=== PATIENT | female | born 1950 | race Caucasian/White ===

== ENCOUNTER → 2018-05-03 12:02 | Outpatient (CLI) | payer MEDICARE, OTHER, SELFPAY ==
[2018-05-03 13:21] LABS: T4 Free Direct 1.55 ng/dL (0.76-1.46); Thyroid Stim Hormone (TSH) 0.03 uIU/mL (0.358-3.74)
== END ==
PROVIDERS: Family Provider Family Medicine; PCP Family Medicine; Visit Provider Internal Medicine
DX: E03.9 Hypothyroidism, unspecified (principal)
CPT/HCPCS: 36415; 84439; 84443

== ENCOUNTER 2019-02-18 11:08 | Emergency (ER) | payer MEDICARE, OTHER, SELFPAY ==
[2019-02-18] VITALS (9 sets, daily range): BP systolic 111–185; BP diastolic 61–117; PULSE 80–103; RESP 14–20; TEMP 37; O2SAT 94–98; BMI 29.4
--- NOTE | 2019-02-18 11:35 | EKG12_ITS ---
Test Reason : SOB Blood Pressure : / mmHG Vent. Rate : 082 BPM Atrial Rate : 082 BPM P-R Int : 130 ms QRS Dur : 092 ms QT Int : 394 ms P-R-T Axes : 001 071 073 degrees QTc Int : 460 ms Normal sinus rhythm Normal ECG Confirmed by WAQAR YAO, LUDWIN ([id number]), publishing editor RAHUL VILLALOBOS ([id number] on 02/21/2019 2:02:38 PM Referred By: RADHA Confirmed By:LUDWIN ZAVALETA MD
[2019-02-18] MEDS: Albuterol 2.5 MG/3 ML VIAL.NEB. INHALATION ×3 (11:52→13:36)
[2019-02-18] MEDS: Ipratropium/Albuterol Sulfate 3 ML AMPUL.NEB INHALATION (11:52)
[2019-02-18 12:00] LABS: Absolute Lymphocyte Count 1.22 X10^3/ul (0.83-4.51); Absolute Neutrophil Count 5.6 X10^3/uL (2.0-7.7); Basophil# 0.07 X10^3/uL; Basophil% 0.9 % (0-1); Eosinophils% 7.4 % (0-5); Hematocrit 45.1 % (37-47); Hemoglobin 15.3 g/dl (12.0-15.0); Lymphocyte # 1.22 X10^3/ul (4.0); Lymphocyte % 15.1 % (19-41); Mean Corp Hgb Conc 33.9 g/gl (32-36); Mean Corpuscular Hgb 31.2 pg (27.0-32.0); Mean Corpuscular Volume 91.9 fL (81-99); Mean Platelet Vol. 9.8 fl (6.2-12.0); Monocyte# 0.59 X10^3/uL; Monocyte% 7.3 % (0-10); Neutrophil # 5.62 X10^3/uL (2.7-7.7); Neutrophil % 69.3 % (47-70); Platelet Count 380 K/mm3 (150-450); RBC Distribution Width CV 14.2 % (11.6-14.6); RBC Distribution Width SD 46.4 fl (35.1-43.9); Red Blood Count 4.91 M/mm3 (4.2-5.4); White Blood Count 8.1 K/mm3 (4.4-11.0)
[2019-02-18 12:01] LABS: POSITIVE COUNT NO; POSITIVE DIFFERENTIAL NO; POSITIVE MORPHOLOGY NO
--- NOTE | 2019-02-18 12:02 | ED.DCSUM_ITS ---
- ER Visit Summary Date of Service: 02/18/19 Chief Complaint: Shortness of breath History of Present Illness: The patient is a 68 F presenting with shortness of breath and cough. She states this has been intermittent for the past several months. It has worsened over the past several days. She has been seeing her primary care physician and was diagnosed with allergy induced asthma. She had allergy testing that showed she was allergic to dogs, dust mites, dust, cockroaches. She does have a dog but does not feel that this is exacerbating her symptoms. She denies fever. Denies chest pain. She has been using albuterol at home. Denies other complaints. Physical Examination: Vitals are stable. Patient is afebrile. Alert no acute distress. HEENT exam is unremarkable. Neck is supple. Lungs are wheezing bilaterally. Heart is regular rate and rhythm. Abdomen is soft nontender nondistended. Extremities are unremarkable. Skin is warm and dry. No focal neurologic deficit. Remainder of exam is unremarkable. Emergency Department Course and Treatment: Patient was given albuterol, Atrovent aerosols. EKG is sinus rhythm rate of 82 with no acute ischemic changes. CBC, chemistries unremarkable. Troponin is negative. Chest x-ray shows no acute process. Patient has continued wheezing after aerosol treatments and was given additional albuterol and Solu-Medrol. Her pulse ox is 89% with ambulation and she has continued wheezing. Discussed with the hospitalist for observation. Patient was seen by the hospitalist in the emergency department, her pulse ox remained 95% on room air. Patient will be discharged and is agreeable with this plan. She will follow-up with pulmonology for her pulmonary function tests. She is given a prescription for prednisone. Advised return to ED if worsening complaints. Disposition: Discharge home Impression: Asthma exacerbation This note was generated with [employer] dictation software. It may contain incorrect words, spelling, and punctuation that were not noted in review of the chart prior to signing ED Disposition - Plan for ED Patient: Instructions: Understanding Asthma Prescriptions: Prednisone [Deltasone] 40 mg PO DAILY #10 tablet Referrals: Matias Smith MD [STAFF PHYSICIAN] - Amanda Bahena PA-C [Primary Care Provider] -
[2019-02-18 12:13] LABS: Anion Gap 9 (5-15); BUN 16 mg/dL (7-18); BUN/Creat Ratio 18.2 RATIO (10-20); Calcium,Total 9.3 mg/dL (8.5-10.1); Chloride 106 mmol/L (98-107); Creatinine, Serum 0.88 mg/dL (0.55-1.02); EST Glomerular Filtration Rate 68 mL/min (>60); Est Glom Filt Rate - Afr Amer 83 mL/min (>60); Estimated Creatinine Clearance 52.02 ml/min; Glucose 95 mg/dL (74-106); Potassium 3.4 mmol/L (3.5-5.1); Sodium Level 141 mmol/L (136-145)
--- NOTE | 2019-02-18 12:30 | RAD_ITS ---
STUDY: X-RAY CHEST REASON FOR EXAM: Female, 68 years old. Shortness of breath TECHNIQUE: AP COMPARISON: 08/09/2017 FINDINGS: EKG The lungs are clear and expanded. There is no demonstrated pleural abnormality. Normal size heart. Normal mediastinum and dianne. Normal visualized pulmonary arteries. Normal visualized aortic arch and descending thoracic aorta. There is a dextroscoliosis of the thoracic spine. Normal visualized ribs, clavicles, and shoulders. There is no demonstrated abnormality of the visualized soft tissue structures of the upper abdomen. RAD/Chest 1 View (Portable) IMPRESSION: Nonacute portable x-ray examination of the chest. Electronically Signed: Gokul Judd MD at 12:47 EDT , Service support ,
[2019-02-18] MEDS: MethylPREDNISolone 125 MG/2 ML Vial IV (13:36)
--- NOTE | 2019-02-18 15:30 | ED.RN ---
PT AMBULATED WITH OUT DIFFICULTY, SPO2 DROPPED LOW 89 DURING THIS WALK MAINTAINED A 90% FOR MOST OF THE WALK.
--- NOTE | 2019-02-18 16:21 | NURSING ---
MED SURG ACUTE COPD EXAC PAINTSIL
--- NOTE | 2019-02-18 16:55 | ED.DEP ---
ED Disposition - Plan for ED Patient: Instructions: Understanding Asthma Prescriptions: Prednisone [Deltasone] 40 mg PO DAILY #10 tablet Referrals: Amanda Bahena PA-C [Primary Care Provider] - Matias Smith MD [STAFF PHYSICIAN] -
== END 2019-02-18 17:20 | disposition home or self-care (01) ==
LOC: ED 11:47
PROVIDERS: Emergency Provider Emergency Medicine; Family Provider Family Medicine; PCP Family Medicine
DX: J45.901 Unspecified asthma with (acute) exacerbation (principal); K21.9 Gastro-esophageal reflux disease without esophagitis; I10 Essential (primary) hypertension; Z79.899 Other long term (current) drug therapy
CPT/HCPCS: 71045; 80048; 84484; 85025; 93005; 94640; 96374; 99285; A4216

== ENCOUNTER → 2019-03-09 06:45 | Outpatient (CLI) | payer MEDICARE, OTHER, SELFPAY ==
[2019-02-18 11:09] VITALS: BMI 29.4
--- NOTE | 2019-03-09 11:14 | PFT ---
INTRODUCTION: The patient is a 68-year-old female that presents for pulmonary function studies secondary to a diagnosis of wheezing. Respiratory therapy reports good patient effort. Bronchodilators were used during testing. INTERPRETATION: Forced expiration spirometry demonstrates the presence of a severe large airways obstructive ventilatory defect. There was a significant response to aerosolized bronchodilators noted. Spirograms are of good quality and do not plateau indicating slow emptying of the lungs. Body plethysmography was performed and reveals an elevated RV to 185% of predicted, indicative of underlying air trapping. Diffusing capacity by single breath CO is reduced at 63% of predicted. IMPRESSION: Partially reversible severe large airways obstructive ventilatory defect with associated air trapping and mild reduction in diffusing capacity. The pattern of this study would be consistent with a COPD/asthma overlap syndrome, in the appropriate clinical setting.
== END ==
PROVIDERS: Family Provider Family Medicine; PCP Family Medicine; Referring Provider Family Medicine; Visit Provider Family Medicine
DX: R06.2 Wheezing (principal)
CPT/HCPCS: 94060; 94726; 94729

== ENCOUNTER 2019-03-13 14:36 | Emergency (ER) | payer MEDICARE, OTHER, SELFPAY ==
[2019-02-18 11:09] VITALS: BMI 29.4
[2019-03-13 14:40] VITALS: BP 181/98; PULSE 89; RESP 16; TEMP 36.4; O2SAT 95; BMI 29.0
--- NOTE | 2019-03-13 15:10 | RAD_ITS ---
STUDY: X-RAY CHEST REASON FOR EXAM: Female, 68 years old. Shortness of breath and cough TECHNIQUE: PA and lateral views of the chest. COMPARISON: 02/18/2019 FINDINGS: The lungs are clear and expanded. There is no demonstrated pleural abnormality. Normal size heart. Normal mediastinum and dianne. Normal visualized pulmonary arteries. Normal visualized aortic arch and descending thoracic aorta. Normal visualized thoracic spine. Normal visualized ribs, clavicles, and shoulders. There is no demonstrated abnormality of the visualized soft tissue structures of the upper abdomen. RAD/Chest PA and Lateral IMPRESSION: Normal x-ray examination of the chest. Electronically Signed: Julio Cesar Hanley MD at 15:30 EDT , Service support ,
[2019-03-13 15:20] VITALS: O2SAT 97
--- NOTE | 2019-03-13 15:28 | EKG12_ITS ---
Test Reason : SOB Blood Pressure : / mmHG Vent. Rate : 068 BPM Atrial Rate : 068 BPM P-R Int : 140 ms QRS Dur : 092 ms QT Int : 412 ms P-R-T Axes : 022 071 075 degrees QTc Int : 438 ms Normal sinus rhythm Cannot rule out Anterior infarct , age undetermined Abnormal ECG Confirmed by WAQAR YAO, LUDWIN ([id number]), editorial manager VEGA TOLBERT ([id number]) on 03/15/2019 1:31:18 PM Referred By: Amanda Bahena Confirmed By:LUDWIN ZAVALETA MD
--- NOTE | 2019-03-13 15:29 | ED.VISSUMM ---
- ER Visit Summary Date of Service: 03/13/19 Chief Complaint: Shortness of breath History of Present Illness: The patient is a 68 F who presents for shortness of breath, worse since last night. Patient was diagnosed with asthma last week. She was started on Ventolin inhaler and DuoNeb nebulizer treatments. Patient states since last night her medications have not been helping. She is short of breath, worse with exertion. No change with lying flat. She has no fever, chest pain, abdominal pain, nausea or vomiting or other complaints. She states in the past she has had great improvement with prednisone, however had bad side effects afterwards, including blurry vision and swelling in her ankles. Patient has history of Graves' disease status post thyroid ablation and is on Synthroid. Also on HCTZ for hypertension. Patient denies any CHF or iliac history. No history of venous thrombi embolism. Physical Examination: Vital signs: afebrile, hemodynamically stable, no hypoxia on room air General: well nourished, well developed, in no distress Skin: warm, dry, no rash, no pallor HEENT: normocephalic and atraumatic; PERRL, EOMI, moist mucous membranes Cardiovascular: regular rate and rhythm without murmurs, no peripheral edema, 2+ pulses all distal extremities Respiratory: Mild increased work of breathing, voice is hoarse, lungs have wheezing in the anterior pedro, clear to auscultation in the posterior upper pedro and diminished in the lower pedro Abdomen: Soft, nontender, nondistended, bowel sounds are normal MSK: Moves all extremities, no deformities, normal strength Neuro: Awake and alert, oriented ?4. No facial droop, sensation and motor function intact and symmetric Test Results: Abnormal Lab Results 03/13/19 03/13/19 03/13/19 15:40 15:40 15:40 WBC 8.2 RBC 4.70 Hgb 14.8 Hct 44.4 MCV 94.5 MCH 31.5 MCHC 33.3 RDW 14.4 RDW Differential 49.7 H Plt Count 336 MPV 10.0 Immature Gran % (Auto) 0.100 Neut % (Auto) 67.2 Lymph % (Auto) 19.8 [place] % (Auto) 5.1 Eos % (Auto) 6.9 H Baso % (Auto) 0.9 Absolute Neuts (auto) 5.5 Absolute Lymphs (auto) 1.63 Total Counted Not Reportable Sodium 139 Potassium 3.6 Chloride 105 Carbon Dioxide 29.0 Anion Gap 5 BUN 19 H Creatinine 0.90 Estim Creat Clear Calc 53.10 Est GFR (MDRD) Af Amer 81 Est GFR (MDRD) Non-Af 67 BUN/Creatinine Ratio 21.2 H Glucose 98 Calcium 9.3 Troponin I < 0.015 B-Natriuretic Peptide 35.7 TSH 2.22 Clinical Impression(s) from Imaging Studies Chest X-Ray 03/13/19 15:10 IMPRESSION: Normal x-ray examination of the chest. Electronically Signed: Julio Cesar Hanley MD at 15:30 EDT , Service support , Medications Given Discontinued Medications Albuterol Sulfate (Ventolin Aerosols) 2.5 mg INHALATION Q20M SUJIT Stop: 03/13/19 16:11 Last Admin: 03/13/19 16:46 Dose: 2.5 mg Admin: 03/13/19 16:46 Dose: 2.5 mg Admin: 03/13/19 16:22 Dose: 2.5 mg Albuterol/Ipratropium (Duoneb) 3 ml INHALATION X1 ONE Stop: 03/13/19 15:29 Last Admin: 03/13/19 16:22 Dose: 3 ml Methylprednisolone (Solu-Medrol) 125 mg IV X1 ONE Stop: 03/13/19 15:29 Last Admin: 03/13/19 15:47 Dose: 125 mg Emergency Department Course and Treatment: Patient was given a series of breathing treatments and a dose of IV Solu-Medrol. EKG showed no ischemic changes. Troponin negative. Chest x-ray showed no pneumonia or pneumothorax. CBC and BMP were unremarkable. TSH was within normal limits. On reevaluation patient was feeling much better after the breathing treatments and the Solu-Medrol. She was given a prescription for a prednisone burst. She was instructed she can stop it if she begins feeling unpleasant side effects like she did the prior time she was on steroids. Patient discharged home and given strict return precautions. Treatment Plan: [] Disposition: [] Impression: Asthma exacerbation This note was generated with [employer] software. It may contain incorrect words, spelling, and punctuation that were not noted in review of the chart prior to signing ED Disposition - Plan for ED Patient: Disposition: Home or Assisted Living Instructions: ED Reactive Airway Disease Prescriptions: RX: Prednisone 40 mg PO DAILY #20 tab Referrals: Amanda Bahena PA-C [Primary Care Provider] - 3-5 Days if not improving Additional Instructions: Please continue your home breathing treatments. Take the prednisone once daily for 5 days, unless you are experiencing concerning side effects. Then you may stop the prednisone at any time. If you have any worsening of your condition or any new concerning symptoms, please return immediately to the emergency department for another evaluation.
[2019-03-13] MEDS: MethylPREDNISolone 125 MG/2 ML Vial IV (15:47)
[2019-03-13 16:08] LABS: Absolute Lymphocyte Count 1.63 X10^3/ul (0.83-4.51); Absolute Neutrophil Count 5.5 X10^3/uL (2.0-7.7); Basophil# 0.07 X10^3/uL; Basophil% 0.9 % (0-1); Eosinophil# 0.57 X10^3/uL; Eosinophils% 6.9 % (0-5); Hematocrit 44.4 % (37-47); Hemoglobin 14.8 g/dl (12.0-15.0); Lymphocyte # 1.63 X10^3/ul (4.0); Lymphocyte % 19.8 % (19-41); Mean Corp Hgb Conc 33.3 g/gl (32-36); Mean Corpuscular Hgb 31.5 pg (27.0-32.0); Mean Corpuscular Volume 94.5 fL (81-99); Monocyte# 0.42 X10^3/uL; Monocyte% 5.1 % (0-10); Neutrophil # 5.53 X10^3/uL (2.7-7.7); Neutrophil % 67.2 % (47-70); Platelet Count 336 K/mm3 (150-450); RBC Distribution Width CV 14.4 % (11.6-14.6); RBC Distribution Width SD 49.7 fl (35.1-43.9); White Blood Count 8.2 K/mm3 (4.4-11.0)
[2019-03-13 16:12] LABS: POSITIVE COUNT NO; POSITIVE DIFFERENTIAL NO; POSITIVE MORPHOLOGY NO
[2019-03-13 16:18] LABS: Anion Gap 5 (5-15); BUN 19 mg/dL (7-18); BUN/Creat Ratio 21.2 RATIO (10-20); Calcium,Total 9.3 mg/dL (8.5-10.1); Chloride 105 mmol/L (98-107); EST Glomerular Filtration Rate 67 mL/min (>60); Est Glom Filt Rate - Afr Amer 81 mL/min (>60); Glucose 98 mg/dL (74-106); Potassium 3.6 mmol/L (3.5-5.1); Sodium Level 139 mmol/L (136-145); Thyroid Stim Hormone (TSH) 2.22 uIU/mL (0.358-3.74)
[2019-03-13 16:22] VITALS: PULSE 86; RESP 18; O2SAT 96
[2019-03-13] MEDS: Ipratropium/Albuterol Sulfate 3 ML AMPUL.NEB INHALATION (16:22)
[2019-03-13] MEDS: Albuterol 2.5 MG/3 ML VIAL.NEB. INHALATION ×3 (16:22→16:46)
[2019-03-13 16:43] LABS: BNP,B-Type NATRIURETIC PEPTIDE 35.7 pg/mL (0-100)
[2019-03-13 16:46] VITALS: PULSE 92; RESP 16; O2SAT 98
[2019-03-13 18:00] VITALS: BP 181/65; PULSE 90; RESP 13; O2SAT 93
== END 2019-03-13 18:00 | disposition home or self-care (01) ==
PROVIDERS: Emergency Provider Emergency Medicine; Family Provider Family Medicine; PCP Family Medicine
DX: J45.901 Unspecified asthma with (acute) exacerbation (principal); E05.00 Thyrotoxicosis with diffuse goiter without thyrotoxic crisis or storm; I10 Essential (primary) hypertension; Z79.899 Other long term (current) drug therapy
CPT/HCPCS: 71046; 80048; 83880; 84443; 84484; 85025; 93005; 94640; 94760; 96374; 99284; A4216

== ENCOUNTER 2019-03-19 19:20 | Inpatient (IN) | payer MEDICARE, OTHER, SELFPAY ==
[2019-03-19] VITALS (10 sets, daily range): BP systolic 146–225; BP diastolic 81–108; PULSE 69–93; RESP 14–18; TEMP 36.6–36.8; O2SAT 94–98; BMI 30.2; BMI 29.9
--- NOTE | 2019-03-19 19:44 | EKG12_ITS ---
Test Reason : CP ADMISSION Blood Pressure : / mmHG Vent. Rate : 067 BPM Atrial Rate : 067 BPM P-R Int : 144 ms QRS Dur : 088 ms QT Int : 406 ms P-R-T Axes : 023 063 061 degrees QTc Int : 429 ms Normal sinus rhythm Normal ECG When compared with ECG of 13-MAR-2019 16:19, No significant change was found Confirmed by TRAM YAO, JAY JAY ([id number]), avid editor VEGA TOLBERT ([id number]) on 03/21/2019 11:17:30 AM Referred By: Amanda Bahena Confirmed By:JAY JAY UGALDE MD
--- NOTE | 2019-03-19 19:49 | ED.DCSUM_ITS ---
History of Present Illness Chief Complaint: Chest Pain Informant: Patient Onset: Today, Hours - 1 Activity at onset: Rest Timing: Intermittent, Lasts - about 30 min Quality: Heaviness, Pressure Location: Substernal - radiating straight through to back and up to throat some Current Severity: Gone Maximum Severity: Severe Worsened By: Nothing. Not Worsened By: Exertion Relieved By: Nothing - went away on its own w/o pt initiating any treatment Associated Symptoms: Diaphoresis. Negative for: Nausea, Vomiting, Dyspnea Narrative: Patient admits that she is somewhat anxious. She was recently in the ER for asthma and placed on 5 days of prednisone, the last dose was supposed to be today but she did not take it because she had an episode of chest pressure 2 or 3 days ago and she read that is 1 of the side effects of prednisone. She did a nebulizer treatment of albuterol several hours ago, prior to the onset of this chest discomfort, which did not feel like her asthma. No prior stress test that she can ever recall. No known heart disease. Prior Similar Symptoms: Yes, - - 1 month ago, another episode 2-3d ago -- neither as bad as this CVD Risk Factors: Hypertension PE Risk Factors: Negative for: Recent Travel/Surgery, Recenet Immobilization, Prior DVT or PE, Cancer - Past Medical History (1) HTN (hypertension) Status: Chronic (2) Asthma Status: Chronic Past Medical History - Allergies and Home Meds Allergies/Adverse Reactions: Allergies levofloxacin [From Levaquin] Adverse Reaction (Verified 03/19/19 19:36) Other prednisone Adverse Reaction (Verified 03/19/19 19:36) Other BLURRED VISION Primary Care Physician: Amanda Bahena PA-C [Primary Care Provider] - Surgical History: tonsillectomy, - - Eye surgery secondary to Graves' disease, D and C Lives: Spouse/ Significant Other Smoking Status: Former smoker Drugs: None - Family History Maternal Family History: Reports: - - from pneumonia Paternal Family History: Reports: Heart Disease Review of Systems General: Reports: Malaise, Sweats. Denies: Chills, Fever Eyes: Denies: Visual changes - bilaterally, Diplopia ENT: Denies: Rhinorrhea, Sore throat Cardiovascular: Reports: Chest pain - gone now. Denies: Palpitations Respiratory: Denies: Dyspnea, Cough, Sputum, Dyspnea on exertion Gastrointestinal: Denies: Abdominal pain, Nausea, Vomiting, Diarrhea, Melena, Hematochezia Genitourinary: Denies: Dysuria, Hematuria, Frequency Musculoskeletal: Reports: Swelling - in my legs, every time I take prednisone. Denies: Back pain, Extremity Pain Skin: Denies: Rash, Wounds Neurological: Denies: Headache, Weakness, Numbness Physical Exam Vital Signs/Narrative: Vital Signs Temp Pulse Resp BP Pulse Ox 03/19/19 19:33 93 14 225/108 H 97 03/19/19 19:21 98.2 F 83 16 201/107 H 97 Inital Vital Signs reviewed: Yes General: Well nourished, Well developed, No Acute Distress Head: Normocephalic, Atraumatic Eyes: Perrl, EOMI ENT: Moist mucous membranes, No rhinorrhea Neck: Supple, Nontender, No JVD Cardiovascular: Regular rate, Regular rhythm, No murmurs, Normal S1, Normal S2 Respiratory: No distress, CTA bilaterally, Chest nontender Abdomen: Soft, Nontender, Nondistended, Normal bowel sounds Back: Nontender, Normal Inspection Extremities: Nontender, No edema. Negative for: Calf Tenderness Skin: Normal color, No rash, No Trauma Neurological: Alert, Oriented x3, Cranial nerves II-XII grossly intact, Normal Strength, Normal Sensation Psychological: Normal Mood, - - anxious Diagnostic/Tx/Re-eval Laboratory Tests 03/19/19 03/19/19 03/19/19 Range/Units 20:04 19:40 19:40 WBC (4.4-11.0) K/mm3 RBC (4.2-5.4) M/mm3 Hgb (12.0-15.0) g/dl Hct (37-47) % MCV (81-99) fL MCH (27.0-32.0) pg MCHC (32-36) g/gl RDW (11.6-14.6) % RDW Differential (35.1-43.9) fl Plt Count (150-450) K/mm3 MPV (6.2-12.0) fl Immature Gran % (Auto) (0.0-0.9) % Neut % (Auto) (47-70) % Lymph % (Auto) (19-41) % [place] % (Auto) (0-10) % Eos % (Auto) (0-5) % Baso % (Auto) (0-1) % Absolute Neuts (auto) (2.0-7.7) X10^3/uL Absolute Lymphs (auto) (0.83-4.51) X10^3/ul Total Counted APTT 24.1 Cancelled Sodium 141 (136-145) mmol/L Potassium 3.9 (3.5-5.1) mmol/L Chloride 106 (98-107) mmol/L Carbon Dioxide 28.0 (21.0-32.0) mmol/L Anion Gap 7 (5-15) BUN 32 H (7-18) mg/dL Creatinine 1.35 H (0.55-1.02) mg/dL Estim Creat Clear Calc 35.40 ml/min Est GFR (MDRD) Af Amer 50 L (>60) mL/min Est GFR (MDRD) Non-Af 42 L (>60) mL/min BUN/Creatinine Ratio 23.7 H (10-20) RATIO Glucose 91 (74-106) mg/dL Calcium 9.5 (8.5-10.1) mg/dL Troponin I < 0.015 (<0.045) ng/mL 03/19/19 Range/Units 19:40 WBC 10.7 (4.4-11.0) K/mm3 RBC 4.52 (4.2-5.4) M/mm3 Hgb 14.4 (12.0-15.0) g/dl Hct 42.7 (37-47) % MCV 94.5 (81-99) fL MCH 31.9 (27.0-32.0) pg MCHC 33.7 (32-36) g/gl RDW 14.9 H (11.6-14.6) % RDW Differential 50.4 H (35.1-43.9) fl Plt Count 399 (150-450) K/mm3 MPV 9.7 (6.2-12.0) fl Immature Gran % (Auto) 0.300 (0.0-0.9) % Neut % (Auto) 56.5 (47-70) % Lymph % (Auto) 23.1 (19-41) % [place] % (Auto) 9.7 (0-10) % Eos % (Auto) 9.7 H (0-5) % Baso % (Auto) 0.7 (0-1) % Absolute Neuts (auto) 6.0 (2.0-7.7) X10^3/uL Absolute Lymphs (auto) 2.46 (0.83-4.51) X10^3/ul Total Counted Not Reportable APTT Sodium (136-145) mmol/L Potassium (3.5-5.1) mmol/L Chloride (98-107) mmol/L Carbon Dioxide (21.0-32.0) mmol/L Anion Gap (5-15) BUN (7-18) mg/dL Creatinine (0.55-1.02) mg/dL Estim Creat Clear Calc ml/min Est GFR (MDRD) Af Amer (>60) mL/min Est GFR (MDRD) Non-Af (>60) mL/min BUN/Creatinine Ratio (10-20) RATIO Glucose (74-106) mg/dL Calcium (8.5-10.1) mg/dL Troponin I (<0.045) ng/mL - Rhythm Strip Rhythm Strip: Sinus Rhythm Rate: 98 Ectopy: None - EKG Initial EKG Interpretation: Sinus Rhythm, No Acute Injury Pattern, Non-Specific ST Changes - diffuse peaked T's. no AVB. narrow QRS and QT. no ST segment deviations. Treatment: Aspirin Repeat Eval: Pain Free WENDY Risk: Age >/= 65 Score: 1 - Medical Decision Making Patient had a couple 10-minute episodes of recurrent chest discomfort. She alerted us about this later, when I reevaluated her. She currently has no chest discomfort. Certainly this could be reflux, however given her significantly elevated blood pressure in the 220s, her age, in fact that she has never had a stress test, and the fact that her heart score is 4, I think it would be alston to admit her for observation overnight for a stress test in the morning. She is amenable to this plan. ED Disposition - Plan for ED Patient: Disposition: Acute Care [facility] Diagnosis: Chest pain, unspecified Referrals: Amanda Bahena PA-C [Primary Care Provider] -
[2019-03-19] MEDS: Aspirin 81 MG TAB.CHEW 324 MG PO (19:55)
[2019-03-19] MEDS: 0.9% Normal Saline 1,000 ML 150 ML IV (19:55)
[2019-03-19 20:04] LABS: Absolute Lymphocyte Count 2.46 X10^3/ul (0.83-4.51); Basophil# 0.07 X10^3/uL; Basophil% 0.7 % (0-1); Eosinophil# 1.03 X10^3/uL; Eosinophils% 9.7 % (0-5); Hematocrit 42.7 % (37-47); Hemoglobin 14.4 g/dl (12.0-15.0); Lymphocyte # 2.46 X10^3/ul (4.0); Lymphocyte % 23.1 % (19-41); Mean Corp Hgb Conc 33.7 g/gl (32-36); Mean Corpuscular Hgb 31.9 pg (27.0-32.0); Mean Corpuscular Volume 94.5 fL (81-99); Mean Platelet Vol. 9.7 fl (6.2-12.0); Monocyte# 1.03 X10^3/uL; Monocyte% 9.7 % (0-10); Neutrophil # 6.04 X10^3/uL (2.7-7.7); Neutrophil % 56.5 % (47-70); Platelet Count 399 K/mm3 (150-450); RBC Distribution Width CV 14.9 % (11.6-14.6); RBC Distribution Width SD 50.4 fl (35.1-43.9); Red Blood Count 4.52 M/mm3 (4.2-5.4); White Blood Count 10.7 K/mm3 (4.4-11.0)
[2019-03-19 20:08] LABS: POSITIVE COUNT NO; POSITIVE DIFFERENTIAL NO; POSITIVE MORPHOLOGY NO
[2019-03-19 20:16] LABS: Anion Gap 7 (5-15); BUN 32 mg/dL (7-18); BUN/Creat Ratio 23.7 RATIO (10-20); Calcium,Total 9.5 mg/dL (8.5-10.1); Chloride 106 mmol/L (98-107); Creatinine, Serum 1.35 mg/dL (0.55-1.02); EST Glomerular Filtration Rate 42 mL/min (>60); Est Glom Filt Rate - Afr Amer 50 mL/min (>60); Glucose 91 mg/dL (74-106); Potassium 3.9 mmol/L (3.5-5.1); Sodium Level 141 mmol/L (136-145)
[2019-03-19 20:18] LABS: Partial Thromboplast Time 24.1 Seconds (24.1-36.2)
[2019-03-19] MEDS: Ipratropium/Albuterol Sulfate 3 ML AMPUL.NEB INHALATION (20:40)
--- NOTE | 2019-03-19 21:26 | PCM.HP.STD ---
Problem List (1) HTN (hypertension) Status: Chronic (2) Asthma Status: Chronic (3) Chest pain, unspecified Status: Acute History of Present Illness Date of Admission: 03/19/19 Chief Complaint: chest pain The patient is a 68 year old F with a significant history of hypertension; asthma; hypothyroidism developed after radiation for Graves' disease who presented to the emergency department with excruciating substernal pressure-like chest pain that started few hours before presentation. Her chest pain radiated to her back and into her throat. Also she reports concomitant burning sensation in her chest that improved with Tums. She denies any nausea or vomiting. But she felt flushed. There are no aggravating or ameliorating factors to her chest pain. Importantly patient had another brief episodes of chest pain 3 days before presentation. That episode lasted for about 10 minutes. Patient attributes her chest pain to probable prednisone that she was on for asthma exacerbation. Because of that she did not take her last dose of prednisone that was due a day before her presentation. At the emergency department his blood pressure was severely high but it came down by itself without any administration of medication. Past Medical History Past Medical History (Chronic Problems): Chronic Problems HTN (hypertension) (Chronic) Asthma (Chronic) Allergies levofloxacin [From Levaquin] Adverse Reaction (Verified 03/19/19 19:36) Other prednisone Adverse Reaction (Verified 03/19/19 19:36) Other BLURRED VISION Home Medications: Ambulatory Orders Medication Instructions Recorded Hydrochlorothiazide [Hctz] 25 mg PO DAILY 08/02/17 Levothyroxine [Synthroid] 175 meq PO DAILY 08/02/17 Albuterol Sulfate [Ventolin Hfa] 1 - 2 inh INHALATION Q4H PRN PRN 03/13/19 Ipratropium/Albuterol Sulfate 3 ml INHALATION Q4H PRN PRN 03/13/19 [Duoneb] Prednisone 40 mg PO DAILY #20 tab 03/13/19 Surgical History: tonsillectomy, - - Eye surgery secondary to Graves' disease, D and C Lives: Spouse/ Significant Other Smoking Status: Former smoker Alcohol: None Drugs: None - *Family History Maternal History Items: - - from pneumonia Paternal History Items: Heart Disease Review of Systems Constitutional: Denies: Chills, Fever, Weight Change HEENT: Denies: Head Aches, Sinus Congestion, Sinus Drainage Cardiovascular: Reports: Chest Pain. Denies: Palpitations Respiratory: Denies: Cough, Sputum production Gastrointestinal: Reports: Dyspepsia. Denies: Abdominal Pain, Nausea, Vomiting Genitourinary: Denies: Dysuria Musculoskeletal: Denies: Joint Pain, Joint Tenderness Skin: Denies: Rash, Wounds Neurological: Denies: Numbness, Tingling, Focal weakness Psychiatric: Denies: Anxiety, Depression, Homicidal Ideations, Suicidal Ideations Hematologic/ Lymphatic: Denies: Easy Bruising, Easy Bleeding VTE Information - Inpt Only VTE Present on Admission: No VTE Mechan Device Prophylaxis: None VTE Pharm Prophylaxis ordered?: Yes Patient Problems: Active and Suspected Problems Chest pain, unspecified (Acute) - Physical Exam General: Alert, Oriented x3, Cooperative HEENT: Atraumatic, PERRLA, EOMI, Normocephalic Neck: Supple, No JVD, Negative Carotid Bruits Lungs: Wheezes - Mild Cardiovascular: Regular rate, No murmurs Abdomen: Bowel Sounds Present, Soft, Non Tender Extremities: No edema, Capillary Refill Less than 3 Seconds Skin: No rashes, No breakdown Musculoskeletal: No Tenderness to Palpation of Joints or Extremities Neurological: Cranial nerves II-XII grossly intact Psych/Mental Status: Normal Affect, Appropriate Vital Signs Temp Pulse Resp BP Pulse Ox 98.2 F 79 16 147/82 H 94 03/19/19 19:21 03/19/19 21:00 03/19/19 21:00 03/19/19 21:00 03/19/19 21:00 Oxygen Delivery Method Room Air Weight: 80 kg Body Mass Index (BMI) 30.2 Finger Stick Blood Glucose 100 Laboratory Tests Past 24 Hrs 03/19/19 03/19/19 03/19/19 19:40 19:40 19:40 WBC 10.7 RBC 4.52 Hgb 14.4 Hct 42.7 MCV 94.5 MCH 31.9 MCHC 33.7 RDW 14.9 H RDW Differential 50.4 H Plt Count 399 MPV 9.7 Immature Gran % (Auto) 0.300 Neut % (Auto) 56.5 Lymph % (Auto) 23.1 [place] % (Auto) 9.7 Eos % (Auto) 9.7 H Baso % (Auto) 0.7 Absolute Neuts (auto) 6.0 Absolute Lymphs (auto) 2.46 Total Counted Not Reportable APTT Cancelled Sodium 141 Potassium 3.9 Chloride 106 Carbon Dioxide 28.0 Anion Gap 7 BUN 32 H Creatinine 1.35 H Estim Creat Clear Calc 35.40 Est GFR (MDRD) Af Amer 50 L Est GFR (MDRD) Non-Af 42 L BUN/Creatinine Ratio 23.7 H Glucose 91 Calcium 9.5 Troponin I < 0.015 03/19/19 20:04 WBC RBC Hgb Hct MCV MCH MCHC RDW RDW Differential Plt Count MPV Immature Gran % (Auto) Neut % (Auto) Lymph % (Auto) [place] % (Auto) Eos % (Auto) Baso % (Auto) Absolute Neuts (auto) Absolute Lymphs (auto) Total Counted APTT 24.1 Sodium Potassium Chloride Carbon Dioxide Anion Gap BUN Creatinine Estim Creat Clear Calc Est GFR (MDRD) Af Amer Est GFR (MDRD) Non-Af BUN/Creatinine Ratio Glucose Calcium Troponin I Assessment/Plan All Active Problems Chest pain, unspecified (Acute) Cough (Acute) Shortness of breath (Acute) The patient is a 68 year old F with a significant history of hypertension; asthma; hypothyroidism developed after radiation for Graves' disease who presented to the emergency department with excruciating substernal pressure-like chest pain. Chest pain Admit to a monitored bed on PCU Patient declined chest x-ray at emergency department as she recently had one.. EKG independently reviewed confirms sinus rhythm with probable left atrial enlargement. Received aspirin 324 mg. Emergency department ASA 81 mg p.o. daily SL NTG 0.4 mg prn as needed for chest pain Morphine as needed for pain We will check lipid panel. High intensity statin x1 dose ordered. Serial cardiac enzymes Stat EKG as needed for chest pain Chemical stress test stress test in the AM if the cardiac enzymes are negative. Patient think she cannot do treadmill stress test because of chest pain that had indeed gone away at that time of examination. Different diagnosis include GERD. Protonix x 1 ordered. Hypertensive urgency Her initially blood pressure was 225/108 but her blood pressure improved without any medication. Patient is on home hydrochlorothiazide. But will hold because of SUSAN. Amlodipine scheduled and as needed hydralazine ordered. SUSAN On presentation her creatinine was 1.35. Her BUN was 32. BUN over creatinine was 23.7. Review of old records shows a baseline creatinine of around 0.90. Her BUN a week ago was 19. Likely prerenal from dehydration/hypovolemia. Her sodium is 141. Gentle IV hydration Avoid nephrotoxic's Hydrochlorothiazide held Trend BMP. GERD Protonix x1 for now. Asthma Does not appear to be in acute exacerbation. Scheduled DuoNeb. PRN Albuterol continued. DVT prophylaxis Subcutaneous Lovenox. Code Visit OBSV E&M: 71546 Initial observation care L3
--- NOTE | 2019-03-19 22:49 | EKG12_ITS ---
Test Reason : CP Blood Pressure : / mmHG Vent. Rate : 098 BPM Atrial Rate : 098 BPM P-R Int : 142 ms QRS Dur : 084 ms QT Int : 346 ms P-R-T Axes : 070 077 070 degrees QTc Int : 441 ms Normal sinus rhythm Possible Left atrial enlargement Borderline ECG Confirmed by TRAM YAO, JAY JAY ([id number]), sound editor RAHUL VILLALOBOS ([id number]) on 03/20/2019 3:50:20 PM Referred By: Amanda Bahena Confirmed By:JAY JAY UGALDE MD
[2019-03-19] MEDS: amLODIPine 5 MG Tablet PO (23:33)
[2019-03-19] MEDS: 0.9% Normal Saline 1,000 ML 100 ML IV (23:33)
[2019-03-19] MEDS: Pantoprazole Sodium 40 MG Tablet PO (23:33)
[2019-03-19 23:46] LABS: Bedside Glucose 81 mg/dL (70-110)
[2019-03-20] VITALS (17 sets, daily range): BP systolic 130–166; BP diastolic 67–95; PULSE 76–100; RESP 18–22; TEMP 36.6–37.1; O2SAT 92–96
[2019-03-20] MEDS: Albuterol 2.5 MG/3 ML VIAL.NEB. INHALATION ×4 (02:21→11:15)
[2019-03-20 04:20] LABS: Absolute Lymphocyte Count 2.13 X10^3/ul (0.83-4.51); Absolute Neutrophil Count 4.6 X10^3/uL (2.0-7.7); Basophil# 0.09 X10^3/uL; Eosinophil# 1.07 X10^3/uL; Eosinophils% 12.4 % (0-5); Hematocrit 41.5 % (37-47); Hemoglobin 13.7 g/dl (12.0-15.0); Lymphocyte # 2.13 X10^3/ul (4.0); Lymphocyte % 24.6 % (19-41); Mean Corpuscular Hgb 30.8 pg (27.0-32.0); Mean Corpuscular Volume 93.3 fL (81-99); Mean Platelet Vol. 9.5 fl (6.2-12.0); Monocyte# 0.72 X10^3/uL; Monocyte% 8.3 % (0-10); Neutrophil % 53.2 % (47-70); Platelet Count 353 K/mm3 (150-450); RBC Distribution Width CV 14.9 % (11.6-14.6); RBC Distribution Width SD 49.8 fl (35.1-43.9); Red Blood Count 4.45 M/mm3 (4.2-5.4); White Blood Count 8.7 K/mm3 (4.4-11.0)
[2019-03-20 04:22] LABS: International Normalized Ratio 0.9; POSITIVE COUNT NO; POSITIVE DIFFERENTIAL NO; POSITIVE MORPHOLOGY NO; Prothrombin Time (Protime)PT. 12.1 SECONDS (11.7-14.9)
[2019-03-20 04:23] LABS: Partial Thromboplast Time 25.1 Seconds (24.1-36.2)
[2019-03-20 04:45] LABS: Anion Gap 6 (5-15); BUN 26 mg/dL (7-18); BUN/Creat Ratio 30.1 RATIO (10-20); Calcium,Total 8.6 mg/dL (8.5-10.1); Chloride 110 mmol/L (98-107); Cholesterol 235 mg/dL (200); Creatinine, Serum 0.86 mg/dL (0.55-1.02); EST Glomerular Filtration Rate 70 mL/min (>60); Est Glom Filt Rate - Afr Amer 84 mL/min (>60); Estimated Creatinine Clearance 55.57 ml/min; Glucose 87 mg/dL (74-106); High Density Lipoprotein 84 mg/dL; Potassium 4.1 mmol/L (3.5-5.1); Sodium Level 142 mmol/L (136-145); Triglycerides 95 mg/dL; Very Low Density Lipoprotein 19 mg/dL (5-40)
[2019-03-20] MEDS: Aspirin E.C. 81 MG Tablet PO (05:54)
[2019-03-20] MEDS: Levothyroxine 175 MCG Tablet PO (05:54)
--- NOTE | 2019-03-20 05:55 | EKG12_ITS ---
Test Reason : AM EKG Blood Pressure : / mmHG Vent. Rate : 076 BPM Atrial Rate : 076 BPM P-R Int : 154 ms QRS Dur : 092 ms QT Int : 396 ms P-R-T Axes : 076 072 069 degrees QTc Int : 445 ms Normal sinus rhythm Normal ECG When compared with ECG of 19-MAR-2019 22:46, MANUAL COMPARISON REQUIRED, DATA IS UNCONFIRMED Confirmed by TRAM YAO, JAY JAY ([id number]), editor managing newspaper VEGA TOLBERT ([id number]) on 03/21/2019 11:17:20 AM Referred By: Amanda Bahena Confirmed By:JAY JAY UGALDE MD
[2019-03-20] MEDS: amLODIPine 5 MG Tablet PO (09:15)
[2019-03-20] MEDS: Acetaminophen 325 MG Tablet 650 MG PO ×2 (09:16→21:07)
--- NOTE | 2019-03-20 09:56 | STRESSREP ---
Stress Test Report Pharmacologic myocardial perfusion stress test. 68-year-old lady with a history of chest pain. Medications: Norvasc aspirin. Stress protocol resting EKG demonstrates normal sinus rhythm with a rate of 83 bpm normal intervals are noted resting blood pressures 160/100 mmHg. 0.4 mg of regadenoson was infused per usual protocol followed by rapid intravenous saline flush injection continuous EKG monitoring was performed. The maximum heart rate attained was 115 bpm which was 74% of maximum predicted heart rate the maximum workload was 1 metabolic equivalent. At rest there were no ST or T wave changes noted suggest abnormal flow reserve at peak infusion nonspecific ST-T wave changes were noted with noted meet the criteria for any ischemia. Myocardial perfusion protocol. 11.5 mCi of technetium 99m sestamibi was injected. 0.4 mg of regadenoson was infused per usual protocol peak infusion 33.1 mCi of technetium 99m sestamibi was injected stress images were obtained stress and rest images were reconstructed and compared in the short axis vertical and horizontal long axis. Gated images were also obtained next Perfusion SPECT analysis: Review of the stress images demonstrate normal uptake of tracer noted in all areas of myocardium the resting images similarly demonstrate normal uptake of tracer noted in all areas of myocardium. No areas of reversibility are noted to suggest ischemia. Gated SPECT analysis: The gated ejection fraction is noted to be 60%. Conclusion: Normal pharmacologic myocardial perfusion stress test. Preserved ejection fraction.
--- NOTE | 2019-03-20 11:13 | CON.PCM_ITS ---
Reason for Consult Date of Consultation: 03/20/19 Reason for Consultation: Asthma exacerbation History of Present Illness: The patient is a 68-year-old female, with a history as outlined below, who presented to the emergency department on March 19 with complaints of chest discomfort. The patient was recently started on medical therapy by her primary care provider for underlying asthma. She has also been evaluated in the emergency department on several occasions here recently due to shortness of breath and wheezing. She has received several rounds of prednisone recently. She reports that each time she takes prednisone she develops lower extremity edema and blurry vision. She does have a very limited smoking history, having quit completely 20 years ago. Nevertheless, she did grow up in a smoking household. She does report a history of seasonal allergic rhinitis and has had allergy testing previously with identified reactions to dust, cockroaches and dog dander. Despite this, the patient does keep her dog as a pet in her home environment. Pulmonary function testing was recently completed in March 2019 and did reveal evidence of a COPD/asthma overlap syndrome. The patient was subsequently started on scheduled duo nebs and as needed Ventolin by her PCP. Despite this, the patient continues to experience chest tightness, wheezing and shortness of breath. The patient's hospital course has included a thorough cardiac work-up, including pharmacologic stress test, which revealed no evidence to suggest ischemia. Of note, as of this morning, the patient has an elevated peripheral eosinophil count to 12.4%. The patient has been receiving scheduled bronchodilators while admitted to the hospital and does report a subjective improvement in her chest discomfort and dyspnea with administration. She is currently maintaining appropriate oxygen saturations on room air. The patient was scheduled to be evaluated in the pulmonary medicine clinic at the end of April 2019. Past Medical History Past Medical History (Chronic Problems): Chronic Problems HTN (hypertension) (Chronic) Asthma (Chronic) Allergies levofloxacin [From Levaquin] Adverse Reaction (Verified 03/19/19 19:36) Other prednisone Adverse Reaction (Verified 03/19/19 19:36) Other BLURRED VISION Home Medications: Ambulatory Orders Medication Instructions Recorded Hydrochlorothiazide [Hctz] 25 mg PO DAILY 08/02/17 Levothyroxine [Synthroid] 175 meq PO DAILY 08/02/17 Albuterol Sulfate [Ventolin Hfa] 1 - 2 inh INHALATION Q4H PRN PRN 03/13/19 Ipratropium/Albuterol Sulfate 3 ml INHALATION Q4H PRN PRN 03/13/19 [Duoneb] Prednisone 40 mg PO DAILY #20 tab 03/13/19 Surgical History: tonsillectomy, - - Eye surgery secondary to Graves' disease, D and C Lives: Spouse/ Significant Other Smoking Status: Former smoker Alcohol: None Drugs: None - *Family History Maternal History Items: - - from pneumonia Paternal History Items: Heart Disease Review of Systems Constitutional: Denies: Chills, Fever Eyes: Denies: Blurred vision, Double vision HEENT: Denies: Head Aches, Sinus Congestion, Sinus Drainage Cardiovascular: Reports: Chest Pressure, Chest Tightness Respiratory: Reports: Cough, Shortness of Breath, Wheezing. Denies: Sputum production Gastrointestinal: Denies: Abdominal Pain, Nausea, Vomiting Genitourinary: Denies: Dysuria Musculoskeletal: Denies: Joint Pain, Joint Tenderness Skin: Denies: Rash, Wounds Neurological: Denies: Numbness, Tingling, Focal weakness Psychiatric: Reports: Anxiety Hematologic/ Lymphatic: Denies: Easy Bruising, Easy Bleeding Patient Problems: Active and Suspected Problems Chest pain, unspecified (Acute) Objective: The patient's most recent lab work, culture data and imaging studies have all been personally reviewed. - Physical Exam General: Alert, Oriented x3, Cooperative, No apparent distress, - - Resting upright in bed with at the bedside. HEENT: Atraumatic, PERRLA, Normocephalic Oral: No Gingival or Mucosal Lesions/ Ulcerations Neck: Supple, No Nodes, Trachea Midline Lungs: - - Decent air movement bilaterally with bilateral expiratory wheezes. Prolonged expiratory phase. Cardiovascular: Regular rate, Regular Rhythm, Normal S1, Normal S2, No murmurs Abdomen: Bowel Sounds Present, Soft, Non Tender, Non-Distended Extremities: No clubbing, No cyanosis, No edema Skin: No breakdown Musculoskeletal: No Tenderness to Palpation of Joints or Extremities, No Muscle Wasting Lymphatic: No Cervical, Supraclavicular, or Inguinal Adenopathy Neurological: Cranial nerves II-XII grossly intact, Neuro grossly intact Psych/Mental Status: Anxious Vital Signs Temp Pulse Resp BP Pulse Ox 98.3 F 86 20 H 166/84 H 92 03/20/19 09:09 03/20/19 09:22 03/20/19 09:09 03/20/19 09:09 03/20/19 09:09 Oxygen Delivery Method Room Air Weight: 174 lb 9.698 oz Body Mass Index (BMI) 29.9 Finger Stick Blood Glucose 100 Intake and Output for Last 24 Hours 03/18/19 03/19/19 03/20/19 23:59 23:59 23:59 Intake Total 1069 / 1069 Balance 1069 / 1069 Laboratory Tests Past 24 Hrs 03/19/19 03/19/19 03/19/19 19:40 19:40 19:40 WBC 10.7 RBC 4.52 Hgb 14.4 Hct 42.7 MCV 94.5 MCH 31.9 MCHC 33.7 RDW 14.9 H RDW Differential 50.4 H Plt Count 399 MPV 9.7 Immature Gran % (Auto) 0.300 Neut % (Auto) 56.5 Lymph % (Auto) 23.1 [place] % (Auto) 9.7 Eos % (Auto) 9.7 H Baso % (Auto) 0.7 Absolute Neuts (auto) 6.0 Absolute Lymphs (auto) 2.46 Total Counted Not Reportable PT INR APTT Cancelled Sodium 141 Potassium 3.9 Chloride 106 Carbon Dioxide 28.0 Anion Gap 7 BUN 32 H Creatinine 1.35 H Estim Creat Clear Calc 35.40 Est GFR (MDRD) Af Amer 50 L Est GFR (MDRD) Non-Af 42 L BUN/Creatinine Ratio 23.7 H Glucose 91 Calcium 9.5 Troponin I < 0.015 Triglycerides Cholesterol LDL Cholesterol VLDL Cholesterol HDL Cholesterol 03/19/19 03/19/19 03/20/19 20:04 23:06 01:30 WBC RBC Hgb Hct MCV MCH MCHC RDW RDW Differential Plt Count MPV Immature Gran % (Auto) Neut % (Auto) Lymph % (Auto) [place] % (Auto) Eos % (Auto) Baso % (Auto) Absolute Neuts (auto) Absolute Lymphs (auto) Total Counted PT INR APTT 24.1 Sodium Potassium Chloride Carbon Dioxide Anion Gap BUN Creatinine Estim Creat Clear Calc Est GFR (MDRD) Af Amer Est GFR (MDRD) Non-Af BUN/Creatinine Ratio Glucose Calcium Troponin I < 0.015 < 0.015 Triglycerides Cholesterol LDL Cholesterol VLDL Cholesterol HDL Cholesterol 03/20/19 03/20/19 03/20/19 04:05 04:05 04:05 WBC 8.7 RBC 4.45 Hgb 13.7 Hct 41.5 MCV 93.3 MCH 30.8 MCHC 33.0 RDW 14.9 H RDW Differential 49.8 H Plt Count 353 MPV 9.5 Immature Gran % (Auto) 0.500 Neut % (Auto) 53.2 Lymph % (Auto) 24.6 [place] % (Auto) 8.3 Eos % (Auto) 12.4 H Baso % (Auto) 1.0 Absolute Neuts (auto) 4.6 Absolute Lymphs (auto) 2.13 Total Counted Not Reportable PT 12.1 INR 0.9 APTT 25.1 Sodium 142 Potassium 4.1 Chloride 110 H Carbon Dioxide 26.0 Anion Gap 6 BUN 26 H Creatinine 0.86 Estim Creat Clear Calc 55.57 Est GFR (MDRD) Af Amer 84 Est GFR (MDRD) Non-Af 70 BUN/Creatinine Ratio 30.1 H Glucose 87 Calcium 8.6 Troponin I Triglycerides 95 Cholesterol 235 H LDL Cholesterol 132 H VLDL Cholesterol 19 HDL Cholesterol 84 POC Glucose 03/19/19 23:03 POC Glucose 81 Assessment/Plan All Active Problems Chest pain, unspecified (Acute) Cough (Acute) Shortness of breath (Acute) RECOMMENDATIONS: 1. Start scheduled budesonide twice daily. 2. Start Singulair 10 mg daily as ordered. 3. Check serum IgE and Zone 5 RAST profile. 4. At discharge, recommend that the patient be started on a LABA/ICS combination inhaler (I will provide samples to her prior to discharge) 5. In addition to the above, the patient will also be continued on Singulair and as needed albuterol at discharge. 6. She will require follow-up in the pulmonary medicine clinic with our nurse practitioner within 2 weeks of discharge. 7. We will plan to check exhaled nitric oxide level at her follow-up office visit. IMPRESSIONS: 1. COPD/asthma overlap syndrome with exacerbation The patient did have pulmonary function testing recently completed which did reveal evidence of an overlap syndrome. The majority of the patient's most troublesome symptoms appear to be most related to underlying bronchospasm. While the patient was started on bronchodilators by her PCP, she was never initiated on any form of an inhaled steroid. The patient is adamant that she wishes to avoid prednisone due to perceived side effects including vision blurriness and fluid retention. The patient never had an allergic reaction to prednisone, despite it being listed on her allergy list. She does have a reported history of seasonal allergic rhinitis and identified dog dander allergen. Despite this, the patient does currently keep her dogs up at her home environment. Given the patient's reluctance to utilize systemic corticosteroids, I would recommend that she be started on scheduled budesonide while inpatient. In addition, I am going to start her on daily Singulair. Given that she has not received any systemic corticosteroids during this hospital stay, we will plan to check IgE and Zone 5 RAST profile. At the time of her discharge from the hospital, I would recommend that she be placed on a combination LABA/ICS, such as Symbicort BID, along with daily Singulair and as needed albuterol. The patient can then follow-up in the pulmonary medicine clinic within 2 weeks, at which time, we can reassess her symptom response to therapy. In addition, upon follow-up in the pulmonary medicine clinic, we will plan to check an exhaled nitric oxide level as well. If the patient remains difficult to control in the future despite being on maximal therapy, she would likely be a candidate for the initiation of immunotherapy. 2. Allergic rhinitis Start scheduled Singulair daily as ordered. 3. History of tobacco dependency, now in remission/hypothyroidism/hypertension Complicates care, management, recovery and prognosis. Continue home medications as indicated. This note was generated with [employer]wall[employer] software. It may contain incorrect words, spelling, and punctuation that were not noted in checking the note before signing. Code Visit Inpatient E&M: 05939 Init Hosp L3
[2019-03-20] MEDS: Montelukast 10 MG Tablet PO (11:56)
[2019-03-20] MEDS: Budesonide Respules 0.5 MG/2 ML AMPUL.NEB. INHALATION ×2 (13:49→20:16)
[2019-03-20] MEDS: Ipratropium/Albuterol Sulfate 3 ML AMPUL.NEB INHALATION ×2 (13:49→20:11)
--- NOTE | 2019-03-20 14:06 | PN_ITS ---
<Maximo Au - Last Filed: 03/20/19 13:56> Patient Problems: Active and Suspected Problems Chest pain, unspecified (Acute) Subjective: Pt severely SOB and wheezy this AM. Hx asthma, recently with ER visits for the same. She has been on prednisone stating that it is giving her a heart attack and thats why she is here this time. Pt underwent stress test this AM which was negative. EKG and trops neg. Pt refused prednisone and solumedrol citing the above reason. Later agreed to see Dr. Sifuentes and take budesonide. Former smoker. - Physical Exam General: Alert, Oriented x3, Cooperative HEENT: Atraumatic, PERRLA, EOMI, Normocephalic Neck: Supple, No JVD, Negative Carotid Bruits Lungs: Diminished, Wheezes Cardiovascular: Regular rate, No murmurs Abdomen: Bowel Sounds Present, Soft, Non Tender Extremities: No edema, Capillary Refill Less than 3 Seconds Skin: No rashes, No breakdown Musculoskeletal: No Tenderness to Palpation of Joints or Extremities Neurological: Cranial nerves II-XII grossly intact Psych/Mental Status: Normal Affect, Appropriate, Alert and oriented to time, place, person, mood and affect Vital Signs Temp Pulse Resp BP Pulse Ox 98.3 F 100 18 166/84 H 92 03/20/19 09:09 03/20/19 11:48 03/20/19 11:16 03/20/19 09:09 03/20/19 09:09 Oxygen Delivery Method Room Air Weight: 174 lb 9.698 oz Body Mass Index (BMI) 29.9 Finger Stick Blood Glucose 100 Intake and Output for Last 24 Hours 03/18/19 03/19/19 03/20/19 23:59 23:59 23:59 Intake Total 1677 / 1677 Balance 1677 / 1677 Laboratory Tests Past 24 Hrs 03/19/19 03/19/19 03/19/19 19:40 19:40 19:40 WBC 10.7 RBC 4.52 Hgb 14.4 Hct 42.7 MCV 94.5 MCH 31.9 MCHC 33.7 RDW 14.9 H RDW Differential 50.4 H Plt Count 399 MPV 9.7 Immature Gran % (Auto) 0.300 Neut % (Auto) 56.5 Lymph % (Auto) 23.1 Hardin % (Auto) 9.7 Eos % (Auto) 9.7 H Baso % (Auto) 0.7 Absolute Neuts (auto) 6.0 Absolute Lymphs (auto) 2.46 Total Counted Not Reportable PT INR APTT Cancelled Sodium 141 Potassium 3.9 Chloride 106 Carbon Dioxide 28.0 Anion Gap 7 BUN 32 H Creatinine 1.35 H Estim Creat Clear Calc 35.40 Est GFR (MDRD) Af Amer 50 L Est GFR (MDRD) Non-Af 42 L BUN/Creatinine Ratio 23.7 H Glucose 91 Calcium 9.5 Troponin I < 0.015 Triglycerides Cholesterol LDL Cholesterol VLDL Cholesterol HDL Cholesterol A. tenuis Allergen IgE A.fumigatus Allerg IgE C. herbarum Allergn IgE D. farinae Allergen D. pteronyssinus IgE P. chrysogen/notat IgE Gould Allergen Black Simla Tree [place] Tree Allrg Elm Tree Allergen Maple ([place]) IgE [place] Tree Allerg Pecan Tree Allergen Way[place] Tree Allergen White Karlos Tree IgE Ab White [place] Allergen Hills Tree Allerg Bermuda Grass Allergen Bright Grass Allergen Common Ragweed Allergen Rough Pigweed Allergen Citizen [place] Thistle IgE Ab Sheep [place] IgE Ab Cat Hair Allergen Dog Epithelium Allerg Mouse Urine IgE Ab Americn Cockroach Alrg IgE 03/19/19 03/19/19 03/20/19 20:04 23:06 01:30 WBC RBC Hgb Hct MCV MCH MCHC RDW RDW Differential Plt Count MPV Immature Gran % (Auto) Neut % (Auto) Lymph % (Auto) [place] % (Auto) Eos % (Auto) Baso % (Auto) Absolute Neuts (auto) Absolute Lymphs (auto) Total Counted PT INR APTT 24.1 Sodium Potassium Chloride Carbon Dioxide Anion Gap BUN Creatinine Estim Creat Clear Calc Est GFR (MDRD) Af Amer Est GFR (MDRD) Non-Af BUN/Creatinine Ratio Glucose Calcium Troponin I < 0.015 < 0.015 Triglycerides Cholesterol LDL Cholesterol VLDL Cholesterol HDL Cholesterol A. tenuis Allergen IgE A.fumigatus Allerg IgE C. herbarum Allergn IgE D. farinae Allergen D. pteronyssinus IgE P. chrysogen/notat IgE Gould Allergen Black Simla Tree [place] Tree Allrg Elm Tree Allergen Maple ([place]) IgE [place] Tree Allerg Pecan Tree Allergen [place] Tree Allergen White Karlos Tree IgE Ab White [place] Allergen Hills Tree Allerg Bermuda Grass Allergen Bright Grass Allergen Common Ragweed Allergen Rough Pigweed Allergen Citizen [place] Thistle IgE Ab Sheep [place] IgE Ab Cat Hair Allergen Dog Epithelium Allerg Mouse Urine IgE Ab Americn Cockroach Alrg IgE 03/20/19 03/20/19 03/20/19 04:05 04:05 04:05 WBC 8.7 RBC 4.45 Hgb 13.7 Hct 41.5 MCV 93.3 MCH 30.8 MCHC 33.0 RDW 14.9 H RDW Differential 49.8 H Plt Count 353 MPV 9.5 Immature Gran % (Auto) 0.500 Neut % (Auto) 53.2 Lymph % (Auto) 24.6 Hardin % (Auto) 8.3 Eos % (Auto) 12.4 H Baso % (Auto) 1.0 Absolute Neuts (auto) 4.6 Absolute Lymphs (auto) 2.13 Total Counted Not Reportable PT 12.1 INR 0.9 APTT 25.1 Sodium 142 Potassium 4.1 Chloride 110 H Carbon Dioxide 26.0 Anion Gap 6 BUN 26 H Creatinine 0.86 Estim Creat Clear Calc 55.57 Est GFR (MDRD) Af Amer 84 Est GFR (MDRD) Non-Af 70 BUN/Creatinine Ratio 30.1 H Glucose 87 Calcium 8.6 Troponin I Triglycerides 95 Cholesterol 235 H LDL Cholesterol 132 H VLDL Cholesterol 19 HDL Cholesterol 84 A. tenuis Allergen IgE A.fumigatus Allerg IgE C. herbarum Allergn IgE D. farinae Allergen D. pteronyssinus IgE P. chrysogen/notat IgE Gould Allergen Black Simla Tree [place] Tree Allrg Elm Tree Allergen Maple ([place]) IgE [place] Tree Allerg Pecan Tree Allergen [place] Tree Allergen White [place] Tree IgE Ab [place] Allergen [place] Tree Allerg Bermuda Grass Allergen Bright Grass Allergen Common Ragweed Allergen Rough Pigweed Allergen [place] Thistle IgE Ab Sheep [place] IgE Ab Cat Hair Allergen Dog Epithelium Allerg Mouse Urine IgE Ab Americn Cockroach Alrg IgE 03/20/19 03/20/19 11:18 11:20 WBC RBC Hgb Hct MCV MCH MCHC RDW RDW Differential Plt Count MPV Immature Gran % (Auto) Neut % (Auto) Lymph % (Auto) [place] % (Auto) Eos % (Auto) Baso % (Auto) Absolute Neuts (auto) Absolute Lymphs (auto) Total Counted PT INR APTT Sodium Potassium Chloride Carbon Dioxide Anion Gap BUN Creatinine Estim Creat Clear Calc Est GFR (MDRD) Af Amer Est GFR (MDRD) Non-Af BUN/Creatinine Ratio Glucose Calcium Troponin I Triglycerides Cholesterol LDL Cholesterol VLDL Cholesterol HDL Cholesterol A. tenuis Allergen IgE Pending A.fumigatus Allerg IgE Pending C. herbarum Allergn IgE Pending D. farinae Allergen Pending D. pteronyssinus IgE Pending P. chrysogen/notat IgE Pending Gould Allergen Pending Black Simla Tree Pending [place] Tree Allrg Pending Elm Tree Allergen Pending Maple ([place]) IgE Pending [place] Tree Allerg Pending Pecan Tree Allergen Pending [place] Tree Allergen Pending White [place] Tree IgE Ab Pending [place] Allergen Pending Hills Tree Allerg Pending Bermuda Grass Allergen Pending Bright Grass Allergen Pending Common Ragweed Allergen Pending Rough Pigweed Allergen Pending [place] Thistle IgE Ab Pending Sheep [place] IgE Ab Pending Cat Hair Allergen Pending Dog Epithelium Allerg Pending Mouse Urine IgE Ab Pending Americn Cockroach Alrg Pending IgE Pending Pending POC Glucose 03/19/19 23:03 POC Glucose 81 Medical Necessity - Tobacco Use Smoking Status: Former smoker Assessment/Plan All Active Problems Chest pain, unspecified (Acute) Cough (Acute) Shortness of breath (Acute) 1. Chest pain - neg trop, ekg, tele, stres test. CP 2/2 Asthma exacerbation 2. Asthma / COPD exacerbation - refuses systemic steroids. duonebs/budesonide. Pulm following. Recent PFTs. Allergy panel sent. singulair started. CXR 03/13 negative. Added IS. 3. Former smoker 4. hypothyroidism - synthroid 5. HTN - trending high. defer adjustment during acute exacerbation of asthma/copd DVT ppx: early ambulation This patient was seen by Maximo Au PA-C under the supervision of Dr. Travis. <Steph Travis - Last Filed: 03/20/19 14:11> - Physical Exam Vital Signs Temp Pulse Resp BP Pulse Ox 98.3 F 100 18 166/84 H 92 03/20/19 09:09 03/20/19 11:48 03/20/19 11:16 03/20/19 09:09 03/20/19 09:09 Oxygen Delivery Method Room Air Weight: 174 lb 9.698 oz Body Mass Index (BMI) 29.9 Finger Stick Blood Glucose 100 Intake and Output for Last 24 Hours 03/18/19 03/19/19 03/20/19 23:59 23:59 23:59 Intake Total 1677 / 1677 Balance 1677 / 1677 Laboratory Tests Past 24 Hrs 03/19/19 03/19/19 03/19/19 19:40 19:40 19:40 WBC 10.7 RBC 4.52 Hgb 14.4 Hct 42.7 MCV 94.5 MCH 31.9 MCHC 33.7 RDW 14.9 H RDW Differential 50.4 H Plt Count 399 MPV 9.7 Immature Gran % (Auto) 0.300 Neut % (Auto) 56.5 Lymph % (Auto) 23.1 Hardin % (Auto) 9.7 Eos % (Auto) 9.7 H Baso % (Auto) 0.7 Absolute Neuts (auto) 6.0 Absolute Lymphs (auto) 2.46 Total Counted Not Reportable PT INR APTT Cancelled Sodium 141 Potassium 3.9 Chloride 106 Carbon Dioxide 28.0 Anion Gap 7 BUN 32 H Creatinine 1.35 H Estim Creat Clear Calc 35.40 Est GFR (MDRD) Af Amer 50 L Est GFR (MDRD) Non-Af 42 L BUN/Creatinine Ratio 23.7 H Glucose 91 Calcium 9.5 Troponin I < 0.015 Triglycerides Cholesterol LDL Cholesterol VLDL Cholesterol HDL Cholesterol A. tenuis Allergen IgE A.fumigatus Allerg IgE C. herbarum Allergn IgE D. farinae Allergen D. pteronyssinus IgE P. chrysogen/notat IgE Gould Allergen Black [place]la Tree [place] Tree Allrg Elm Tree Allergen Maple ([place]) IgE [place] Tree Allerg Pecan Tree Allergen [place] Tree Allergen White [place] Tree IgE Ab [place] Allergen [place] Tree Allerg Bermuda Grass Allergen Bright Grass Allergen Common Ragweed Allergen Rough Pigweed Allergen [place] Thistle IgE Ab Sheep [place] IgE Ab Cat Hair Allergen Dog Epithelium Allerg Mouse Urine IgE Ab Americn Cockroach Alrg IgE 03/19/19 03/19/19 03/20/19 20:04 23:06 01:30 WBC RBC Hgb Hct MCV MCH MCHC RDW RDW Differential Plt Count MPV Immature Gran % (Auto) Neut % (Auto) Lymph % (Auto) [place] % (Auto) Eos % (Auto) Baso % (Auto) Absolute Neuts (auto) Absolute Lymphs (auto) Total Counted PT INR APTT 24.1 Sodium Potassium Chloride Carbon Dioxide Anion Gap BUN Creatinine Estim Creat Clear Calc Est GFR (MDRD) Af Amer Est GFR (MDRD) Non-Af BUN/Creatinine Ratio Glucose Calcium Troponin I < 0.015 < 0.015 Triglycerides Cholesterol LDL Cholesterol VLDL Cholesterol HDL Cholesterol A. tenuis Allergen IgE A.fumigatus Allerg IgE C. herbarum Allergn IgE D. farinae Allergen D. pteronyssinus IgE P. chrysogen/notat IgE Gould Allergen Black [place] Tree [place] Tree Allrg Elm Tree Allergen Maple ([place]) IgE [place] Tree Allerg Pecan Tree Allergen [place] Tree Allergen White [place] Tree IgE Ab [place] Allergen [place] Tree Allerg Bermuda Grass Allergen Bright Grass Allergen Common Ragweed Allergen Rough Pigweed Allergen Citizen [place] Thistle IgE Ab Sheep [place] IgE Ab Cat Hair Allergen Dog Epithelium Allerg Mouse Urine IgE Ab Americn Cockroach Alrg IgE 03/20/19 03/20/19 03/20/19 04:05 04:05 04:05 WBC 8.7 RBC 4.45 Hgb 13.7 Hct 41.5 MCV 93.3 MCH 30.8 MCHC 33.0 RDW 14.9 H RDW Differential 49.8 H Plt Count 353 MPV 9.5 Immature Gran % (Auto) 0.500 Neut % (Auto) 53.2 Lymph % (Auto) 24.6 Hardin % (Auto) 8.3 Eos % (Auto) 12.4 H Baso % (Auto) 1.0 Absolute Neuts (auto) 4.6 Absolute Lymphs (auto) 2.13 Total Counted Not Reportable PT 12.1 INR 0.9 APTT 25.1 Sodium 142 Potassium 4.1 Chloride 110 H Carbon Dioxide 26.0 Anion Gap 6 BUN 26 H Creatinine 0.86 Estim Creat Clear Calc 55.57 Est GFR (MDRD) Af Amer 84 Est GFR (MDRD) Non-Af 70 BUN/Creatinine Ratio 30.1 H Glucose 87 Calcium 8.6 Troponin I Triglycerides 95 Cholesterol 235 H LDL Cholesterol 132 H VLDL Cholesterol 19 HDL Cholesterol 84 A. tenuis Allergen IgE A.fumigatus Allerg IgE C. herbarum Allergn IgE D. farinae Allergen D. pteronyssinus IgE P. chrysogen/notat IgE Gould Allergen Black [place] Tree [place] Tree Allrg Elm Tree Allergen Maple ([place]) IgE [place] Tree Allerg Pecan Tree Allergen [place] Tree Allergen White [place] Tree IgE Ab [place] Allergen [place] Tree Allerg Bermuda Grass Allergen Bright Grass Allergen Common Ragweed Allergen Rough Pigweed Allergen [place] Thistle IgE Ab Sheep [place] IgE Ab Cat Hair Allergen Dog Epithelium Allerg Mouse Urine IgE Ab Americn Cockroach Alrg IgE 03/20/19 03/20/19 11:18 11:20 WBC RBC Hgb Hct MCV MCH MCHC RDW RDW Differential Plt Count MPV Immature Gran % (Auto) Neut % (Auto) Lymph % (Auto) [place] % (Auto) Eos % (Auto) Baso % (Auto) Absolute Neuts (auto) Absolute Lymphs (auto) Total Counted PT INR APTT Sodium Potassium Chloride Carbon Dioxide Anion Gap BUN Creatinine Estim Creat Clear Calc Est GFR (MDRD) Af Amer Est GFR (MDRD) Non-Af BUN/Creatinine Ratio Glucose Calcium Troponin I Triglycerides Cholesterol LDL Cholesterol VLDL Cholesterol HDL Cholesterol A. tenuis Allergen IgE Pending A.fumigatus Allerg IgE Pending C. herbarum Allergn IgE Pending D. farinae Allergen Pending D. pteronyssinus IgE Pending P. chrysogen/notat IgE Pending Gould Allergen Pending Black [place] Tree Pending [place] Tree Allrg Pending Elm Tree Allergen Pending Maple ([place]) IgE Pending [place] Tree Allerg Pending Pecan Tree Allergen Pending [place] Tree Allergen Pending White [place] Tree IgE Ab Pending [place] Allergen Pending Hills Tree Allerg Pending Bermuda Grass Allergen Pending Bright Grass Allergen Pending Common Ragweed Allergen Pending Rough Pigweed Allergen Pending [place] Thistle IgE Ab Pending Sheep [place] IgE Ab Pending Cat Hair Allergen Pending Dog Epithelium Allerg Pending Mouse Urine IgE Ab Pending [place] Cockroach Alrg Pending IgE Pending Pending POC Glucose 03/19/19 23:03 POC Glucose 81 Assessment/Plan Patient seen by Maximo Au PA-C under my supervision Patient seen and examined. She was admitted with complaint of chest pain which was question in nature and she thought was due to steroid that she had been taking for acute asthma exacerbation. She was recently diagnosed with a asthma and is here to follow-up with pulmonology. She had a stress test this morning which was negative. However earlier today, she had an acute asthmatic attack with assisted wheezing and chest tightness. Patient absolutely refused to take steroids as she thought that caused her chest pain. She was started on breathing treatments and this helped her symptoms improved. Pulmonology consulted. Patient denied any chest pain has had resolved at time of review. Shortness of breath that improved but she did have some wheezing. Review of systems otherwise negative. Labs and vitals reviewed. o/e: Vital Signs Height 5 ft 4 in Weight: 174 lb 9.698 oz Weight in Pounds 174.6 lbs Pulse Ox 92 Temperature 98.3 F Pulse Rate 100 Respiratory Rate 18 Blood Pressure 166/84 Blood Pressure Position Semi-Fowlers General: Alert, Oriented x3, Cooperative HEENT: Atraumatic, PERRLA, EOMI, Normocephalic Neck: Supple, No JVD, Negative Carotid Bruits Lungs: Diminished, expiratory wheezing bilaterally in all lung pedro. Cardiovascular: Regular rate, No murmurs Abdomen: Bowel Sounds Present, Soft, Non Tender Extremities: No edema, Capillary Refill Less than 3 Seconds Skin: No rashes, No breakdown Musculoskeletal: No Tenderness to Palpation of Joints or Extremities Neurological: Cranial nerves II-XII grossly intact Psych/Mental Status: Normal Affect, Appropriate, Alert and oriented to time, place, person, mood and affect Plan is to continue with breathing treatments and titrate oxygen to maintain sats >90%. Continue duo nebs. Allergy panel as well as IgE sent and she is been started on Singulair. Incentive spirometry. Per pulmonology, discharge she should be placed on a combination long-acting beta agonist and inhaled corticosteroid such as Symbicort twice daily as well as daily Singulair and albuterol as needed. Will need follow-up upon discharge in the pulmonary clinic. Rest of management as per Maximo Au PA-C's note which I reviewed and endorsed. Code Visit Inpatient E&M: 62172 Subs Hosp L3
--- NOTE | 2019-03-20 14:49 | CASEMGMT ---
NAS SANTANA assessment: Face to Face with patient for initial transition planning/care coordination assessment. NAS SANTANA introduced self and role at [facility], pt voices understanding and consents to assessment at this time. Pt is sitting up in chair in no distress at this time. Pt is A/Ox4 at this time and answers all questions appropriately at this time. Care providers, pharmacy, and demographics verified at this time. PCP: Shruti Specialists: En, endocrinology in [place] Preferred Pharmacy: [facility] Benefit: Envision plus but states there is not a great coverage Living Will/HPOA: Pt states has LW/HPOA and is aware that they are not currently on file at [facility] at this time. LNOK: Bonifacio Shelbi, Living Arrangements: Pt states lives with in a 1 story home and states no concerns at home at this time. Pt states is independent with ADL's. Transportation: Pt states drives self and states no transportation concerns at this time. DME/HHC: Pt states has a nebulizer at home and states no need for any further DME at this time. Pt is on room air at this time. Pt states no hx of HHC or SNF in the past. Pt states no concerns with going home at time of discharge. 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 Pt states does not smoke or drink ETOH. Pt states no further questions/concerns/needs at this time. CM to follow for any further discharge planning/needs. Advised pt to ask for CM if any further questions/concerns/needs arise, voices understanding. Pt Goal: Home Plan: [place] SANTANA
[2019-03-21] VITALS (7 sets, daily range): BP systolic 130–132; BP diastolic 77–86; PULSE 70–85; RESP 16–18; TEMP 36.1–37.1; O2SAT 94
[2019-03-21] MEDS: Levothyroxine 175 MCG Tablet PO (06:25)
[2019-03-21] MEDS: Acetaminophen 325 MG Tablet 650 MG PO (06:25)
[2019-03-21] MEDS: Budesonide Respules 0.5 MG/2 ML AMPUL.NEB. INHALATION (07:14)
[2019-03-21] MEDS: Ipratropium/Albuterol Sulfate 3 ML AMPUL.NEB INHALATION (07:15)
[2019-03-21] MEDS: Aspirin E.C. 81 MG Tablet PO (09:27)
[2019-03-21] MEDS: amLODIPine 5 MG Tablet PO (09:27)
--- NOTE | 2019-03-21 09:49 | DCINST_ITS ---
- Discharge Diagnoses Current Active Problems: Current Active and Chronic Problems Chest pain, unspecified (Acute) You will use the following diet at home:: Cardiac Your food should be the consistency of: Regular Your liquids should be the consistency of: Regular/Thin Discharge Activity: Return to Normal Activity Allergies/Adverse Reactions: Allergies levofloxacin [From Levaquin] Adverse Reaction (Verified 03/19/19 19:36) Other prednisone Adverse Reaction (Verified 03/19/19 19:36) Other BLURRED VISION Medications to take at Discharge Hydrochlorothiazide [Hctz] 25 mg PO DAILY 08/02/17 Levothyroxine [Synthroid] 175 meq PO DAILY 08/02/17 Albuterol Sulfate [Ventolin Hfa] 1 - 2 inh INHALATION Q4H PRN PRN 03/13/19 Ipratropium/Albuterol Sulfate [Duoneb] 3 ml INHALATION Q4H PRN PRN 03/13/19 Amlodipine [Norvasc] 5 mg PO DAILY #30 tablet 03/21/19 Budesonide/Formoterol 160/4.5 [Symbicort 160/4.5 Mcg Inhaler (SP)] 2 puff INHALATION BID #1 inhaler 03/21/19 Montelukast [Singulair] 10 mg PO DAILY@1700 #30 tablet 03/21/19 The following prescriptions were given: Amlodipine [Norvasc] 5 mg PO DAILY #30 tablet Budesonide/Formoterol 160/4.5 [Symbicort 160/4.5 Mcg Inhaler (SP)] 2 puff INHALATION BID #1 inhaler Montelukast [Singulair] 10 mg PO DAILY@1700 #30 tablet Primary Care Physician: Amanda Bahena PA-C [Primary Care Provider] - Please follow up with your Primary Care Physician in: 1-2 weeks Test Results: Test results from this visit will be discussed in further detail at your follow- up appointment, if applicable. Please Follow Up With: Juan Sifuentes DO When: 2 weeks
--- NOTE | 2019-03-21 11:46 | PHA.DC.COU ---
Pharmacy Services has performed discharge medication counseling for this patient. The patient was counseled on the following discharge medications and changes in medications for homegoing review. 1. SYMBICORT 2. SINGULAIR 3. AMLODIPINE The Reason for Use, instructions for use, and potential side effects were reviewed for all new medications. The patient's questions regarding all of their medications were answered. The patient was able to verbally demonstrate an understanding of their discharge medications.
--- NOTE | 2019-03-21 11:55 | PN_ITS ---
Subjective: The patient was seen and examined at the bedside this morning. Events from the last 24 hours have been reviewed. The patient is currently afebrile, hemodynamically stable and maintaining appropriate oxygen saturations on room air. Wheezing and shortness of breath appears to have responded favorably to the use of scheduled budesonide. Objective: The patient's most recent lab work, culture data and imaging studies have all been personally reviewed. Serum IgE level and zone 5 RAST profile are pending. - Physical Exam General: Alert, Oriented x3, Cooperative, No apparent distress HEENT: Atraumatic, PERRLA, Normocephalic Oral: No Gingival or Mucosal Lesions/ Ulcerations Neck: Supple, No Nodes, Trachea Midline Lungs: Normal air movement, No rhonchi, No wheeze, No rales Cardiovascular: Regular rate, Regular Rhythm, Normal S1, Normal S2, No murmurs Abdomen: Bowel Sounds Present, Soft, Non Tender Extremities: No clubbing, No cyanosis, No edema Skin: No breakdown Musculoskeletal: No Tenderness to Palpation of Joints or Extremities, No Muscle Wasting Lymphatic: No Cervical, Supraclavicular, or Inguinal Adenopathy Neurological: Cranial nerves II-XII grossly intact, Neuro grossly intact Psych/Mental Status: Normal Affect, Appropriate Vital Signs Temp Pulse Resp BP Pulse Ox 97.0 F L 85 16 132/86 H 94 03/21/19 09:00 03/21/19 09:00 03/21/19 09:00 03/21/19 09:00 03/21/19 09:02 Oxygen Delivery Method Room Air Weight: 174 lb 9.698 oz Body Mass Index (BMI) 29.9 Finger Stick Blood Glucose 100 Intake and Output for Last 24 Hours 03/19/19 03/20/19 03/21/19 23:59 23:59 23:59 Intake Total 2560 / 2560 Balance 2560 / 2560 Microbiology Past 72 Hours 03/20/19 13:50 Respiratory Panel (PCR) - Final Mucosa - Nasopharyngeal Laboratory Tests Past 24 Hrs 03/20/19 11:20 A. tenuis Allergen IgE Pending A.fumigatus Allerg IgE Pending C. herbarum Allergn IgE Pending D. farinae Allergen Pending D. pteronyssinus IgE Pending P. chrysogen/notat IgE Pending [place] Allergen Pending [place] Tree Pending [place] Tree Allrg Pending [place] Tree Allergen Pending Maple (Hallie) IgE Pending [place] Tree Allerg Pending Pec[place] Tree Allergen Pending [place] Tree Allergen Pending White [place] Tree IgE Ab Pending White [place] Allergen Pending [place] Tree Allerg Pending [place] Grass Allergen Pending Bright [place] Allergen Pending Common Ragweed Allergen Pending Rough Pigweed Allergen Pending [place] Thistle IgE Ab Pending Sheep [place] IgE Ab Pending Cat Hair Allergen Pending Dog Epithelium Allerg Pending Mouse Urine IgE Ab Pending Americn Cockroach Alrg Pending IgE Pending Medical Necessity - Tobacco Use Smoking Status: Former smoker Assessment/Plan All Active Problems Chest pain, unspecified (Acute) Cough (Acute) Shortness of breath (Acute) RECOMMENDATIONS: 1. Continue scheduled budesonide twice daily. 2. Continue Singulair 10 mg daily as ordered. 3. At discharge, recommend that the patient be started on a LABA/ICS combination inhaler, such as Symbicort. 4. In addition to the above, the patient will also need to be continued on Singulair and as needed albuterol at discharge. 5. She will require follow-up in the pulmonary medicine clinic with our nurse practitioner. 6. We will plan to check exhaled nitric oxide level at her follow-up office visit and review the results of her IgE and RAST profile. 7. The patient is currently scheduled to follow-up with our nurse practitioner on March 28 at 12:45 pm. IMPRESSIONS: 1. COPD/asthma overlap syndrome with exacerbation The patient did have pulmonary function testing recently completed which did reveal evidence of an overlap syndrome. The majority of the patient's most troublesome symptoms appear to be most related to underlying bronchospasm. While the patient was started on bronchodilators by her PCP, she was never initiated on any form of an inhaled steroid. The patient is adamant that she wishes to avoid prednisone due to perceived side effects including vision b lurriness and fluid retention. The patient never had an allergic reaction to prednisone, despite it being listed on her allergy list. She does have a reported history of seasonal allergic rhinitis and identified dog dander allergen. Despite this, the patient does currently keep her dogs up at her home environment. Given the patient's reluctance to utilize systemic corticosteroids, I would recommend that she be continued on scheduled budesonide. The patient should also be continued on daily Singulair. At discharge, recommended that she be started on a combination inhaler such as Symbicort. On follow-up in the pulmonary medicine clinic we will obtain an exhaled nitric oxide test and review the results of her RAST profile and IgE level. If the patient remains difficult to control in the future despite being on maximal therapy, she would likely be a candidate for the initiation of immunotherapy. 2. Allergic rhinitis Start scheduled Singulair daily as ordered. 3. History of tobacco dependency, now in remission/hypothyroidism/hypertension Complicates care, management, recovery and prognosis. Continue home medications as indicated. This note was generated with [employer] dictation software. It may contain incorrect words, spelling, and punctuation that were not noted in checking the note before signing. Code Visit Inpatient E&M: 91154 Subs Hosp L2
--- NOTE | 2019-03-21 15:37 | PCM.DC.SUM ---
<Maximo Au - Last Filed: 03/21/19 15:46> Discharge Date and Diagnosis Date of Admission: 03/19/19 Date of Discharge: 03/21/19 - Primary Discharge Diagnosis Chest pain secondary to asthma/COPD exacerbation Acute asthma and COPD exacerbation Obesity Nicotine abuse-former Hypertension Hypothyroidism - Secondary Discharge Diagnosis Chronic Problems HTN (hypertension) (Chronic) Asthma (Chronic) Hospital Course and Treatment Imaging Results: Stress test: Conclusion: Normal pharmacologic myocardial perfusion stress test. Preserved ejection fraction. Consults: Bear-pulmonology Operations: None Procedures: Stress test Summary of Care Provided: Hospital Course: The patient is a 68 year old F with past medical history of asthma, hypertension, hypothyroidism, obesity, former smoker, who presented to the emergency room with chest pain. The patient had been in the ER recently for an asthma exacerbation and started on steroids and breathing treatments. She had been referred to pulmonology as an outpatient but has not had a chance to see them directly. She did have outpatient pulmonary function testing which showed asthma and COPD. She also had a recent chest x-ray was negative. In the emergency room she had a negative EKG, negative troponin. The patient stated that she thought that the prednisone was giving her heart attack. She was admitted for chest pain work-up. The following morning she underwent a stress test which was negative. Troponin was negative x3, repeat EKGs were negative. The patient developed severe wheezing and shortness of breath. She was felt to be in an asthma exacerbation. She refused to take systemic steroids as again she felt that they are giving her heart attack. As she was supposed to follow-up with pulmonology as an outpatient and her breathing was very poor and her understanding of the medications was very poor, we consulted pulm. She agreed to inhaled steroids. By the following morning she had no further SOB/wheezing/CP/or o2 requirement. She was discharged home in stable condition. She will follow up with pulmonary medicine in 2 weeks, and with her PCP in 1-2 weeks. This patient was seen by Maximo Au PA-C under the supervision of Doctor Angy. [] - Physical Exam General: Alert, Oriented x3, Cooperative HEENT: Atraumatic, PERRLA, EOMI, Normocephalic Neck: Supple, No JVD, Negative Carotid Bruits Lungs: Clear to auscultation, Normal air movement Cardiovascular: Regular rate, No murmurs Abdomen: Bowel Sounds Present, Soft, Non Tender Extremities: No edema, Capillary Refill Less than 3 Seconds Skin: No rashes, No breakdown Musculoskeletal: No Tenderness to Palpation of Joints or Extremities Neurological: Cranial nerves II-XII grossly intact Psych/Mental Status: Normal Affect, Appropriate Vital Signs Temp Pulse Resp BP Pulse Ox 97.0 F L 85 16 132/86 H 94 03/21/19 09:00 03/21/19 09:00 03/21/19 09:00 03/21/19 09:00 03/21/19 09:02 Oxygen Delivery Method Room Air Weight: 174 lb 9.698 oz Body Mass Index (BMI) 29.9 Finger Stick Blood Glucose 100 Intake and Output for Last 24 Hours 03/19/19 03/20/19 03/21/19 23:59 23:59 23:59 Intake Total 2560 / 2560 Balance 2560 / 2560 Microbiology Past 72 Hours 03/20/19 13:50 Respiratory Panel (PCR) - Final Mucosa - Nasopharyngeal Discharge Diet: Low fat/ Low Cholesterol, 1800 Calorie Control Diet, 2000 mg Sodium Diet Discharge Activity: Return to Normal Activity Home Medications: Medications to take at Discharge Hydrochlorothiazide [Hctz] 25 mg PO DAILY 08/02/17 Levothyroxine [Synthroid] 175 meq PO DAILY 08/02/17 Albuterol Sulfate [Ventolin Hfa] 1 - 2 inh INHALATION Q4H PRN PRN 03/13/19 Ipratropium/Albuterol Sulfate [Duoneb] 3 ml INHALATION Q4H PRN PRN 03/13/19 Amlodipine [Norvasc] 5 mg PO DAILY #30 tablet 03/21/19 Budesonide/Formoterol 160/4.5 [Symbicort 160/4.5 Mcg Inhaler (SP)] 2 puff INHALATION BID #1 inhaler 03/21/19 Montelukast [Singulair] 10 mg PO DAILY@1700 #30 tablet 03/21/19 Following Prescrptions Were Given to Patient: Amlodipine [Norvasc] 5 mg PO DAILY #30 tablet Budesonide/Formoterol 160/4.5 [Symbicort 160/4.5 Mcg Inhaler (SP)] 2 puff INHALATION BID #1 inhaler Montelukast [Singulair] 10 mg PO DAILY@1700 #30 tablet Primary Care Physician: Amanda Bahena PA-C [Primary Care Provider] - Please follow up with your Primary Care Physician in: 1-2 weeks Please Follow Up With: Juan Sifuentes DO When: 2 weeks Disposition: Home Minutes spent on discharge:: 35 Patient Condition:: Stable Medical Necessity - Tobacco Use Smoking Status: Former smoker Meaningful Use Info Meaningful Use Diagnoses (Choose all that apply): None applicable <Steph Travis - Last Filed: 03/21/19 16:13> Discharge Date and Diagnosis - Secondary Discharge Diagnosis Chronic Problems HTN (hypertension) (Chronic) Asthma (Chronic) Hospital Course and Treatment Summary of Care Provided: Patient seen by Maximo Au PA-C under my supervision The patient is a 68 year old F with past medical history as listed. She was admitted through the ED with complaint of chest pain. She had recently been seen in Wednesday for asthma exacerbation in the ED prior to this admission. She was given steroids and patient thinks that that the steroids that made her chest hurt. Troponins x3 were negative and EKG was also negative. Patient had a stress test which was negative. However patient developed severe wheezing and shortness of breath after stress test and so was managed for acute asthma exacerbation. Patient refused to take steroids as she thought there was given a heart attack. Pulmonology was consulted as patient had not yet establish care with pulmonology on outpatient basis. Patient agreed to inhaled steroids and was given budesonide's was also given DuoNeb DuoNeb's. Patient's breathing improved and acute asthma exacerbation resolved. She remained stable and was discharged home on 03/21/2019. She is to follow-up with her primary care doctor in 1 week. She is also to follow-up with pulmonology in 2 weeks. Patient seen and examined prior to discharge. She had no complaints and felt well. Review of systems otherwise negative. Labs and vitals reviewed. Home medications reviewed and reconciled. o/e: Vital Signs Height 5 ft 4 in Weight: 174 lb 9.698 oz Weight in Pounds 174.6 lbs Pulse Ox 94 Temperature 97.0 F Pulse Rate 85 Respiratory Rate 16 Blood Pressure [BP] 132/86 Blood Pressure 132/86 Blood Pressure Position [BP] Sitting Blood Pressure Position Semi-Fowlers [] General: Alert, Oriented x3, Cooperative HEENT: Atraumatic, PERRLA, EOMI, Normocephalic Neck: Supple, No JVD, Negative Carotid Bruits Lungs: Lungs clear to auscultation. No wheezes or crackles. Cardiovascular: Regular rate, No murmurs Abdomen: Bowel Sounds Present, Soft, Non Tender Extremities: No edema, Capillary Refill Less than 3 Seconds Skin: No rashes, No breakdown Musculoskeletal: No Tenderness to Palpation of Joints or Extremities Neurological: Cranial nerves II-XII grossly intact Psych/Mental Status: Normal Affect, Appropriate, Alert and oriented to time, place, person, mood and affect Plan as above. Rest of management as per Maximo Au PA-C's note, which I have reviewed and endorse. - Physical Exam Vital Signs Temp Pulse Resp BP Pulse Ox 97.0 F L 85 16 132/86 H 94 03/21/19 09:00 03/21/19 09:00 03/21/19 09:00 03/21/19 09:00 03/21/19 09:02 Oxygen Delivery Method Room Air Weight: 174 lb 9.698 oz Body Mass Index (BMI) 29.9 Finger Stick Blood Glucose 100 Intake and Output for Last 24 Hours 03/19/19 03/20/19 03/21/19 23:59 23:59 23:59 Intake Total 2560 / 2560 Balance 2560 / 2560 Microbiology Past 72 Hours 03/20/19 13:50 Respiratory Panel (PCR) - Final Mucosa - Nasopharyngeal Code Visit Inpatient E&M: 46048 Disch Hosp
[2019-03-27 10:00] LABS: Immunoglobulin E 304 IU/mL (6-495)
[2019-03-29 12:07] LABS: Alternaria tenuis <0.10 kU/L (Class 0); Ash, White <0.10 kU/L (Class 0); Aspergillus fumigatus <0.10 kU/L (Class 0); Bermuda Grass <0.10 kU/L (Class 0); Birch <0.10 kU/L (Class 0); Black Walnut <0.10 kU/L (Class 0); Cat Hair / Dander,Stand <0.10 kU/L (Class 0); Cedar, Mountain <0.10 kU/L (Class 0); Cladosporium herbarum <0.10 kU/L (Class 0); Cockroach, American 0.14 kU/L (Class 0/I); Cottonwood <0.10 kU/L (Class 0); D farinae Mite 0.11 kU/L (Class 0/I); D pteronyssinus 0.12 kU/L (Class 0/I); Dog Epithelia 0.71 kU/L (Class II); Elm, American White <0.10 kU/L (Class 0); Immunoglobulin E 301 IU/mL (6-495); Maple/Box Elder <0.10 kU/L (Class 0); Mulberry, White <0.10 kU/L (Class 0); Oak, White <0.10 kU/L (Class 0); Pecan <0.10 kU/L (Class 0); Penicillium Notatum <0.10 kU/L (Class 0); Pigweed, Rough <0.10 kU/L (Class 0); Ragweed, Short/Common <0.10 kU/L (Class 0); Russian Thistle <0.10 kU/L (Class 0); Sheep Sorrel <0.10 kU/L (Class 0); Sycamore, American <0.10 kU/L (Class 0); Timothy Grass <0.10 kU/L (Class 0)
[2019-03-29 15:47] LABS: Mouse Urine <0.10 kU/L (Class 0)
== END 2019-03-21 11:29 | disposition home or self-care (01) | DRG 202 ==
LOC: ED 21:30 → PCU 22:13
PROVIDERS: Internal Medicine Critical Care Medicine; Admitting Provider Hospitalist; Emergency Provider Emergency Medicine; Family Provider Family Medicine; PCP Family Medicine; Visit Provider Student in an Organized Health Care Education/Training Program
DX: J45.901 Unspecified asthma with (acute) exacerbation (principal); J44.1 Chronic obstructive pulmonary disease with (acute) exacerbation; N17.9 Acute kidney failure, unspecified; M35.1 Other overlap syndromes; I10 Essential (primary) hypertension; E03.9 Hypothyroidism, unspecified; Z87.891 Personal history of nicotine dependence; Z79.899 Other long term (current) drug therapy; Z79.51 Long term (current) use of inhaled steroids; Z68.30 Body mass index [BMI] 30.0-30.9, adult; I16.0 Hypertensive urgency; E86.1 Hypovolemia; E86.0 Dehydration; K21.9 Gastro-esophageal reflux disease without esophagitis; E66.9 Obesity, unspecified
CPT/HCPCS: 36415; 78452; 80048; 80061; 82785; 82962; 84484; 85025; 85610; 85730; 86003; 87633; 93005; 93017; 94640; 99285; A9500; J7030; A4216; J2785

== ENCOUNTER → 2019-05-09 | Outpatient (CLI) | payer MEDICARE, OTHER, SELFPAY ==
[2019-04-05 08:15] VITALS: BMI 29.9
[2019-05-09 17:03] LABS: T4 Free Direct 1.46 ng/dL (0.76-1.46); Thyroid Stim Hormone (TSH) 1.46 uIU/mL (0.358-3.74)
== END | disposition home or self-care (01) ==
LOC: LAB 16:08
PROVIDERS: Family Provider Family Medicine; PCP Family Medicine; Referring Provider Internal Medicine; Visit Provider Internal Medicine
DX: E03.9 Hypothyroidism, unspecified (principal)
CPT/HCPCS: 36415; 84439; 84443

== ENCOUNTER → 2019-12-26 | Outpatient (CLI) | payer MEDICARE, OTHER, SELFPAY ==
[2019-07-31 07:43] VITALS: BMI 30.9
[2019-12-26 11:22] LABS: T4 Free Direct 1.31 ng/dL (0.76-1.46)
== END | disposition home or self-care (01) ==
LOC: LAB 08:53
PROVIDERS: PCP Family Medicine; Referring Provider Internal Medicine; Visit Provider Internal Medicine
DX: E03.9 Hypothyroidism, unspecified (principal)
CPT/HCPCS: 36415; 84439; 84443

== ENCOUNTER → 2020-03-27 | Outpatient (CLI) | payer MEDICARE, OTHER, SELFPAY ==
[2019-07-31 07:43] VITALS: BMI 30.9
[2020-03-27 14:15] LABS: T4 Free Direct 1.63 ng/dL (0.76-1.46)
== END | disposition home or self-care (01) ==
PROVIDERS: PCP Family Medicine; Referring Provider Internal Medicine; Visit Provider Internal Medicine
DX: E03.9 Hypothyroidism, unspecified (principal)
CPT/HCPCS: 36415; 84439; 84443

== ENCOUNTER 2020-07-25 21:36 | Emergency (ER) | payer MEDICARE, OTHER, SELFPAY ==
[2020-07-02 08:22] VITALS: BMI 34.3
[2020-07-25 21:36] VITALS: BP 162/92; PULSE 104; RESP 18; TEMP 37.2; O2SAT 99; BMI 38.9
--- NOTE | 2020-07-25 22:06 | CT_ITS ---
STUDY: CT ABDOMEN AND PELVIS WITHOUT CONTRAST REASON FOR EXAM: Female, 70 years old. LT FLANK PAIN AND NAUSEA -- HX:ASTHMA,COPD,GRAVES DISEASE,HTN,HLD RADIATION DOSAGE (If Supplied By Facility): CTDIvol = ( 14.60 ) mGy, DLP = ( 656.48 ) mGycm TECHNIQUE: Transaxial images were obtained from the dome of the diaphragm to the symphysis pubis without oral contrast, and without intravenous contrast. Sagittal and coronal images were reconstructed. Individualized dose optimization techniques were used for this CT. COMPARISON: None. FINDINGS: Lung bases are clear. Heart size is normal. The liver is unremarkable. The gallbladder is unremarkable. The spleen and pancreas are unremarkable. The adrenal glands are normal. 6 mm nonobstructing stone in the lower pole of the right kidney. 1.4 cm low-attenuation lesion in the left kidney, not characterized without contrast. Nonobstructing stones in the lower pole of the left kidney measure up to 7 x 6 mm. There is moderate left hydronephrosis. There is a 6 x 4 x 2 mm stone in the left proximal ureter. No distal ureteral stones. The aorta is normal in caliber. There is no free fluid, free air or organized collection. No bowel obstruction or inflammatory change. Diverticulosis, no acute diverticulitis. Normal appendix. Urinary bladder is nondistended. Normal abdominal wall. Mild degenerative changes of the lumbar spine. CT/Abdomen/Pelvis without Cont IMPRESSION: 1. Stone in the left proximal ureter with moderate proximal hydronephrosis. 2. Additional nonobstructing renal calculi bilaterally. 3. Left renal hypodensity is not characterized without contrast. 4. Diverticulosis, no acute diverticulitis. Electronically Signed: Kristen Frederick MD at 23:24 EDT Tel , Service support ,
[2020-07-25] MEDS: Ketorolac 30 MG/ML Syringe IV (22:14)
[2020-07-25] MEDS: Ondansetron 4 MG/2 ML Vial IV (22:14)
[2020-07-25 22:16] LABS: Bacteria 0 SEEN /hpf (None Seen); Mucous, Urine 0 SEEN /hpf (<or=2+); White Blood Cells 0 SEEN /hpf (0-5)
--- NOTE | 2020-07-25 22:16 | ED.DCSUM_ITS ---
History of Present Illness Chief Complaint: Flank Pain Informant: Patient Narrative: Patient is a 70-year-old female who presents to the emergency department for left-sided flank pain. This started around 3 AM this morning. She does relate this to a history of kidney stone which she had multiple years ago. She has been nauseous and dry heaving throughout the day. She has chills coming and going. The pain radiates around the left side. She does not know aggravating or relieving factors. Currently rates the pain as a 10 out of 10. She describes as sharp. Has not tried taking anything for that. Denies any dysuria or hematuria previously. No change in bowel habits. No chest pain or shortness of breath. No abdominal pain. She did previously passed the stone spontaneously. Past Medical History - Allergies and Home Meds Allergies/Adverse Reactions: Allergies levofloxacin [From Levaquin] Adverse Reaction (Verified 07/25/20 21:39) GI upset prednisone Adverse Reaction (Verified 07/25/20 21:39) Other BLURRED VISION, CHEST PAIN/PRESSURE, TACHYCARDIA Primary Care Physician: Gayla Sexton MD [STAFF PHYSICIAN] - As soon as possible Amanda Bahena PA-C [Primary Care Provider] - Prior records reviewed: Yes Past Medical History: - - Hypertension, asthma, COPD Surgical History: tonsillectomy, - Smoking Status: Never smoker - Family History Maternal Family History: Family History (Last Reviewed 07/02/20 @ 12:12 by Lashell Story) Father Heart disease Asthma Mother CAD (coronary artery disease) Sister PAD (peripheral artery disease) Cancer Diabetes Grandfather Diabetes Leukemia Family History: Reports: - - from pneumonia Paternal Family History: Family History (Last Reviewed 07/02/20 @ 12:12 by Lashell Story) Father Heart disease Asthma Mother CAD (coronary artery disease) Sister PAD (peripheral artery disease) Cancer Diabetes Grandfather Diabetes Leukemia Family History: Reports: Heart Disease Review of Systems All systems negative except as indicated General: Reports: Chills. Denies: Fever, Sweats Eyes: Denies: Visual changes - bilaterally, Diplopia ENT: Denies: Rhinorrhea, Sore throat Cardiovascular: Denies: Chest pain, Palpitations Respiratory: Denies: Dyspnea, Cough, Dyspnea on exertion Gastrointestinal: Reports: Nausea, Vomiting. Denies: Abdominal pain, Diarrhea, Melena, Hematochezia Genitourinary: Denies: Dysuria, Hematuria, Frequency Musculoskeletal: Reports: Back pain. Denies: Extremity Pain Skin: Denies: Rash, Wounds Neurological: Denies: Headache, Weakness, Numbness Physical Exam Vital Signs/Narrative: Vital Signs Temp Pulse Resp BP Pulse Ox 07/25/20 21:36 98.9 F 104 H 18 162/92 H 99 General: Well nourished, Well developed, No Acute Distress, - - Patient sitting at edge of bed dry heaving Head: Normocephalic, Atraumatic Eyes: Perrl, EOMI ENT: Moist mucous membranes, No rhinorrhea Neck: Supple, Nontender Cardiovascular: Regular rate, Regular rhythm, No murmurs Respiratory: No distress, CTA bilaterally, Chest nontender Abdomen: Soft, Nontender, Nondistended, Normal bowel sounds Back: Nontender, Normal Inspection. Negative for: CVA tenderness, Spinal tenderness Extremities: Nontender, No edema Skin: Normal color, No rash Neurological: Alert, Oriented x3, Cranial nerves II-XII grossly intact, Normal Strength, Normal Sensation Psychological: Normal affect, Normal Mood Diagnostic/Tx/Re-eval - Medical Decision Making Patient presents to the emergency department for left-sided flank pain and nausea/vomiting. She is concerned that she is having another kidney stone. Will check a urinalysis and CT scan of the abdomen/pelvis. She given a dose of Toradol and Zofran for symptomatic relief. Patient did get good pain relief with the Toradol but she is still nauseous. That time she is given a dose of Phenergan. Patient still having some episodes of dry heaving. CT scan did show a 6 mm obstructing stone with moderate hydronephrosis. No significant elevation with her creatinine. Urine did not show any evidence of infection. Will recommend symptomatic treatment at home. She did get Naprosyn, and [place] and Zofran for home treatment. She does feel comfortable going home at this time. I did make a urology referral. Warning signs and symptoms for acute return to the ED including any intolerable pain, vomiting and inability to keep down medications, develop any fever/chills are reviewed. She understands and is agreeable this plan. Patient discharged home in stable condition. ED Disposition - Plan for ED Patient: Disposition: Home or Assisted Living Diagnosis: Ureterolithiasis, Nausea and vomiting Instructions: ED Renal Stone w Colic Prescriptions: Naproxen [Naprosyn] 500 mg PO BID #20 tab Transmission Status: Received by [id number] Hydrocodone/Acetaminophen [[place] 5-325 Tablet] 1 ea PO Q8H PRN PRN 3 Days #12 tab PRN Reason: Pain Score 6-10/10 Transmission Status: Received by [id number] Ondansetron [Zofran Odt] 4 mg PO Q8H PRN PRN 3 Days #10 tab PRN Reason: Nausea/Vomiting Transmission Status: Received by [id number] Referrals: Amanda Bahena PALeoncioC [Primary Care Provider] - Gayla Sexton MD [STAFF PHYSICIAN] - As soon as possible
[2020-07-25 22:18] LABS: Color, Urine Yellow (Yellow); Glucose, Dipstick Normal (Normal); Leukocyte Esterase-Dipstick Negative /ul (Negative); Nitrite-Dipstick Negative (Negative); Occult Blood-Urine 50 /ul (Negative); Protein-Dipstick 30 mg/dl (Negative); Specific Gravity, Urine 1.025 (1.002-1.030); Urine Bilirubin Dipstick Negative (Negative); Urine Clarity Clear (Clear); Urine Urobilinogen Normal (Normal)
[2020-07-25 22:22] LABS: Ketone-Dipstick 150 mg/dl (Negative)
[2020-07-25 22:25] LABS: Red Blood Cells-Urine 0-5 SEEN /hpf (0-5); Squamous Epithelial Cells - UA 0-5 SEEN /hpf (5-10)
[2020-07-25] MEDS: proMETHazine 25 MG/ML Syringe 12.5 MG IV (23:18)
[2020-07-25 23:24] LABS: Absolute Lymphocyte Count 0.81 X10^3/uL (0.83-4.51); Absolute Neutrophil Count 13.3 X10^3/uL (2.0-7.7); Basophil# 0.06 X10^3/uL; Basophil% 0.4 % (0-1); Eosinophil# 0.28 X10^3/uL; Eosinophils% 1.9 % (0-5); Hematocrit 47.5 % (37-47); Hemoglobin 15.8 g/dL (12.0-15.0); Lymphocyte # 0.81 X10^3/ul (4.0); Lymphocyte % 5.4 % (19-41); Mean Corp Hgb Conc 33.3 g/dL (32-36); Mean Corpuscular Volume 93.1 fL (81-99); Mean Platelet Vol. 10.4 fl (6.2-12.0); Monocyte# 0.44 X10^3/uL; Monocyte% 2.9 % (0-10); NRBC Flagged by Analyzer 0 % (0-5); Neutrophil # 13.33 X10^3/uL (2.7-7.7); Neutrophil % 89.2 % (47-70); Platelet Count 391 K/mm3 (150-450); RBC Distribution Width CV 14.2 % (11.6-14.6); RBC Distribution Width SD 48.9 fl (35.1-43.9)
[2020-07-25 23:33] LABS: Anion Gap 10 (5-15); BUN 21 mg/dL (7-18); BUN/Creat Ratio 18.8 RATIO (10-20); Calcium,Total 9.4 mg/dL (8.5-10.1); Chloride 104 mmol/L (98-107); Creatinine, Serum 1.12 mg/dL (0.55-1.02); EST Glomerular Filtration Rate 51 mL/min (>60); Est Glom Filt Rate - Afr Amer 62 mL/min (>60); Estimated Creatinine Clearance 39.77 ml/min; Glucose 174 mg/dL (74-106); Potassium 3.4 mmol/L (3.5-5.1); Sodium Level 140 mmol/L (136-145)
[2020-07-26] VITALS: BP 132/78; PULSE 76; RESP 16; O2SAT 99
[2020-07-26] MEDS: HYDROcodone Bitartrate/Apap 5/325 Tablet PO (00:09)
[2020-07-26] MEDS: Ondansetron ODT 4 MG Tablet PO (00:09)
== END 2020-07-26 00:09 | disposition home or self-care (01) ==
PROVIDERS: Emergency Provider Emergency Medicine; PCP Family Medicine
DX: N13.2 Hydronephrosis with renal and ureteral calculous obstruction (principal); R11.2 Nausea with vomiting, unspecified; I10 Essential (primary) hypertension; J44.9 Chronic obstructive pulmonary disease, unspecified; Z87.442 Personal history of urinary calculi; Z79.51 Long term (current) use of inhaled steroids; Z79.899 Other long term (current) drug therapy
CPT/HCPCS: 74176; 80048; 81001; 85025; 96374; 96375; 99282; A4216; J2405

== ENCOUNTER 2020-07-26 15:27 | Observation (INO) | payer MEDICARE, OTHER, SELFPAY ==
[2020-07-25 21:36] VITALS: BMI 38.9
[2020-07-26] VITALS (11 sets, daily range): BP systolic 110–178; BP diastolic 57–86; PULSE 63–116; RESP 16–18; TEMP 36.6–37.2; O2SAT 92–99; BMI 34.3; BMI 34.5
[2020-07-26 16:10] LABS: Mucous, Urine 0 SEEN /hpf (<or=2+)
[2020-07-26] MEDS: Ondansetron 4 MG/2 ML Vial IV (16:23)
[2020-07-26] MEDS: Morphine 4 MG/ML Syringe IV (16:24)
[2020-07-26 16:25] LABS: Absolute Lymphocyte Count 1.16 X10^3/uL (0.83-4.51); Absolute Neutrophil Count 18.7 X10^3/uL (2.0-7.7); Basophil# 0.06 X10^3/uL; Basophil% 0.3 % (0-1); Eosinophil# 0.02 X10^3/uL; Eosinophils% 0.1 % (0-5); Hematocrit 46.1 % (37-47); Hemoglobin 15.5 g/dL (12.0-15.0); Lymphocyte # 1.16 X10^3/ul (4.0); Lymphocyte % 5.4 % (19-41); Mean Corp Hgb Conc 33.6 g/dL (32-36); Mean Corpuscular Volume 92.2 fL (81-99); Mean Platelet Vol. 9.9 fl (6.2-12.0); Monocyte# 1.44 X10^3/uL; Monocyte% 6.7 % (0-10); NRBC Flagged by Analyzer 0 % (0-5); Neutrophil # 18.68 X10^3/uL (2.7-7.7); Platelet Count 359 K/mm3 (150-450); RBC Distribution Width CV 14.5 % (11.6-14.6); RBC Distribution Width SD 49.1 fl (35.1-43.9); White Blood Count 21.5 K/mm3 (4.4-11.0)
[2020-07-26 16:28] LABS: Color, Urine Yellow (Yellow); Glucose, Dipstick Normal (Normal); Ketone-Dipstick 50 mg/dl (Negative); Leukocyte Esterase-Dipstick 100 /ul (Negative); Nitrite-Dipstick Negative (Negative); Occult Blood-Urine 25 /ul (Negative); Protein-Dipstick 15 mg/dl (Negative); Urine Bilirubin Dipstick Negative (Negative); Urine Clarity Sl. Cloudy (Clear); Urine Urobilinogen Normal (Normal)
[2020-07-26 16:35] LABS: Anion Gap 6 (5-15); BUN 33 mg/dL (7-18); BUN/Creat Ratio 21.9 RATIO (10-20); Calcium,Total 9.3 mg/dL (8.5-10.1); Chloride 102 mmol/L (98-107); Creatinine, Serum 1.51 mg/dL (0.55-1.02); EST Glomerular Filtration Rate 36 mL/min (>60); Est Glom Filt Rate - Afr Amer 44 mL/min (>60); Estimated Creatinine Clearance 30.79 ml/min; Glucose 108 mg/dL (74-106); Potassium 3.2 mmol/L (3.5-5.1); Sodium Level 137 mmol/L (136-145)
--- NOTE | 2020-07-26 16:40 | ED.VIS.GEN ---
History of Present Illness Chief Complaint: Flank Pain Informant: Patient Narrative: Patient is a 70-year-old female who presents to the emergency department for left-sided flank pain and nausea/vomiting. I saw the patient in the emergency department yesterday and diagnosed her with a ureteral stone. She was discharged home with Naprosyn, [place] and Zofran. This has not been giving her significant relief. She feels like her symptoms are getting worse. The pain has started to move more towards the left lower quadrant of the abdomen. She currently rates the pain as severe. No known aggravating or relieving factors. She has been nauseous and dry heaving multiple times today. She denies any fevers or chills. No chest pain or shortness of breath. She states that her urine has been slightly more dark than yesterday. No change in bowel habits. Past Medical History - Allergies and Home Meds Allergies/Adverse Reactions: Allergies levofloxacin [From Levaquin] Adverse Reaction (Verified 07/26/20 15:28) GI upset prednisone Adverse Reaction (Verified 07/26/20 15:28) Other BLURRED VISION, CHEST PAIN/PRESSURE, TACHYCARDIA Prior records reviewed: Yes Surgical History: tonsillectomy, - Smoking Status: Never smoker - Family History Maternal Family History: Family History (Last Reviewed 07/26/20 @ 17:[address] John Bower MD) Father Heart disease Asthma Mother CAD (coronary artery disease) Sister PAD (peripheral artery disease) Cancer Diabetes Grandfather Diabetes Leukemia Family History: Reports: - - from pneumonia Paternal Family History: Family History (Last Reviewed 07/26/20 @ 17:[address] John Bower MD) Father Heart disease Asthma Mother CAD (coronary artery disease) Sister PAD (peripheral artery disease) Cancer Diabetes Grandfather Diabetes Leukemia Family History: Reports: Heart Disease Review of Systems All systems negative except as indicated General: Denies: Chills, Fever, Sweats Eyes: Denies: Visual changes - bilaterally, Diplopia ENT: Denies: Rhinorrhea, Sore throat Cardiovascular: Denies: Chest pain, Palpitations Respiratory: Denies: Dyspnea, Cough, Dyspnea on exertion Gastrointestinal: Reports: Abdominal pain, Nausea, Vomiting. Denies: Diarrhea, Melena, Hematochezia Genitourinary: Denies: Dysuria, Hematuria, Frequency Musculoskeletal: Reports: Back pain. Denies: Extremity Pain Skin: Denies: Rash, Wounds Neurological: Denies: Headache, Weakness, Numbness Physical Exam Vital Signs/Narrative: Vital Signs Temp Pulse Resp BP Pulse Ox 07/26/20 15:28 97.9 F 92 18 178/78 H 98 Inital Vital Signs reviewed: Yes General: Well nourished, Well developed, No Acute Distress, - - Patient has a vomit bag and sitting at edge of bed. Does appear uncomfortable. Head: Normocephalic, Atraumatic Eyes: Perrl, EOMI ENT: Moist mucous membranes, No rhinorrhea Neck: Supple, Nontender Cardiovascular: Regular rate, Regular rhythm, No murmurs Respiratory: No distress, CTA bilaterally, Chest nontender Abdomen: Soft, Nontender, Nondistended, Normal bowel sounds Back: Normal Inspection, CVA tenderness Extremities: Nontender, No edema Skin: Normal color, No rash Neurological: Alert, Oriented x3, Cranial nerves II-XII grossly intact, Normal Strength, Normal Sensation Psychological: Normal affect, Normal Mood Diagnostic/Tx/Re-eval - Medical Decision Making Patient presents to the emergency department for worsening abdominal/flank pain, nausea/vomiting after being diagnosed with a kidney stone yesterday. We will repeat basic lab work. Will recheck urinalysis. Patient treated with morphine and Zofran. Patient's creatinine has trended upward. I did call and discussed the case with the on-call urologist. They are agreeable to admitting the patient for treatment at this time. Patient otherwise has been stable throughout ED stay. She understands and is agreeable with this plan. ED Disposition - Plan for ED Patient: Disposition: Acute Care [facility] Diagnosis: Ureterolithiasis, Acute kidney injury, Flank pain, Nausea and vomiting
[2020-07-26 16:49] LABS: Red Blood Cells-Urine 0-5 SEEN /hpf (0-5); Squamous Epithelial Cells - UA 0-5 SEEN /hpf (5-10); White Blood Cells 0-5 SEEN /hpf (0-5)
[2020-07-26 16:50] LABS: Bacteria 1+ /hpf (None Seen)
--- NOTE | 2020-07-26 17:13 | PCM.HP.STD ---
Problem List (1) Ureterolithiasis Status: Acute History of Present Illness Date of Admission: 07/26/20 Chief Complaint: left kidney stone and ureteral stone The patient is a 70 year old Female with obstruction in the left proximal ureter and stones in the left kidney now 2nd time in the ER, plan to admit for control of pain and placement stent. Past Medical History Past Medical History (Chronic Problems): Chronic Problems (Last Reviewed 07/02/20 @ 12:12 by Lashell Story) Asthma-chronic obstructive pulmonary disease overlap syndrome (Chronic) Stage 3 severe COPD by GOLD classification (Chronic) FEV1 63% of predicted COPD (chronic obstructive pulmonary disease) (Chronic) HTN (hypertension) (Chronic) Asthma (Chronic) Cough (Chronic) Shortness of breath (Chronic) Medical History: Medical History (Last Reviewed 07/26/20 @ 17:[address] John Bower MD) Pneumonia (Resolved) J18.9 COPD (chronic obstructive pulmonary disease) (Chronic) J44.9 Bronchitis (Resolved) J40 HTN (hypertension) (Chronic) I10 Asthma (Chronic) J45.909 Chest pain, unspecified (Acute) R07.9 Cough (Chronic) R05 Shortness of breath (Chronic) R06.02 Allergies levofloxacin [From Levaquin] Adverse Reaction (Verified 07/26/20 15:28) GI upset prednisone Adverse Reaction (Verified 07/26/20 15:28) Other BLURRED VISION, CHEST PAIN/PRESSURE, TACHYCARDIA Home Medications: Ambulatory Orders Medication Instructions Recorded Hydrochlorothiazide [Hctz] 25 mg PO DAILY 08/02/17 Levothyroxine [Synthroid] 175 meq PO DAILY 08/02/17 Ipratropium/Albuterol Sulfate 3 ml INHALATION Q4H PRN PRN 03/13/19 [Duoneb] montelukast 10 mg tablet 10 mg PO DAILY@1700 #30 tab 05/06/20 fluticasone 250 mcg-salmeterol 50 1 inh INHALATION BID #60 ea 06/24/20 mcg/dose blistr powdr for inhalation albuterol sulfate 90 mcg/actuation 1 - 2 inh INHALATION Q4H PRN PRN 07/03/20 aerosol inhaler #18 g Hydrocodone/Acetaminophen [[place] 1 ea PO Q8H PRN PRN 3 Days #12 tab 07/25/20 5-325 Tablet] Naproxen [Naprosyn] 500 mg PO BID #20 tab 07/25/20 Ondansetron [Zofran Odt] 4 mg PO Q8H PRN PRN 3 Days #10 tab 07/25/20 Surgical History: Surgical History (Last Reviewed 07/26/20 @ 17:[address] John Bower MD) Eyelid retraction unspecified eye, unspecified lid (Resolved) H02.539 History of D&C (Resolved) Z98.890 Surgical History: tonsillectomy, - Psychiatric History: No pertinent psych hx [employer]IST History: No pertinent [employer]IST history Smoking Status: Never smoker - *Family History Maternal Family History: Family History (Last Reviewed 07/26/20 @ 17:[address] John Bower MD) Father Heart disease Asthma Mother CAD (coronary artery disease) Sister PAD (peripheral artery disease) Cancer Diabetes Grandfather Diabetes Leukemia History Items: - - from pneumonia Paternal Family History: Family History (Last Reviewed 07/26/20 @ 17:[address] John Bower MD) Father Heart disease Asthma Mother CAD (coronary artery disease) Sister PAD (peripheral artery disease) Cancer Diabetes Grandfather Diabetes Leukemia History Items: Heart Disease Review of Systems Constitutional: Denies: Chills, Fever, Weight Change HEENT: Denies: Head Aches, Sinus Congestion, Sinus Drainage Cardiovascular: Denies: Chest Pain, Palpitations Respiratory: Denies: Cough, Shortness of breath at rest, Sputum production Gastrointestinal: Reports: Abdominal Pain, Nausea, Vomiting Genitourinary: Denies: Dysuria Musculoskeletal: Denies: Joint Pain, Joint Tenderness Skin: Denies: Rash, Wounds Neurological: Denies: Numbness, Tingling, Focal weakness Psychiatric: Denies: Anxiety, Depression, Homicidal Ideations, Suicidal Ideations Hematologic/ Lymphatic: Denies: Easy Bruising, Easy Bleeding VTE Information - Inpt Only VTE Present on Admission: No - Physical Exam Vitals/I&O's: Vital Signs Temp Pulse Resp BP Pulse Ox 97.9 F 92 18 178/78 H 98 07/26/20 15:28 07/26/20 15:28 07/26/20 15:28 07/26/20 15:28 07/26/20 15:28 Oxygen Delivery Method Room Air Weight: 90.8 kg Body Mass Index (BMI) 34.3 Finger Stick Blood Glucose 100 General: Alert, Oriented x3, Cooperative HEENT: Atraumatic, PERRLA, EOMI, Normocephalic Neck: Supple, No JVD, Negative Carotid Bruits Lungs: Clear to auscultation, Normal air movement Cardiovascular: Regular rate, No murmurs Abdomen: Bowel Sounds Present, Soft, Non Tender Extremities: No edema, Capillary Refill Less than 3 Seconds Skin: No rashes, No breakdown Musculoskeletal: No Tenderness to Palpation of Joints or Extremities Neurological: Cranial nerves II-XII grossly intact Psych/Mental Status: Normal Affect, Appropriate Laboratory Results 07/26/20 16:05: Urine Color Yellow, Urine Clarity Sl. Cloudy, Urine pH 6.0, Ur Specific [place] 1.020, Urine Protein 15 H, Urine Glucose (UA) Normal, Urine Ketones 50 H, Urine Occult Blood 25 H, Urine Nitrite Negative, Urine Bilirubin Negative, Urine Urobilinogen Normal, Ur Leukocyte Esterase 100 H, Urine RBC 0-5 SEEN, Urine WBC 0-5 SEEN, Ur Squamous Epith Cells 0-5 SEEN, Urine Bacteria 1+, Urine Mucus 0 SEEN 07/26/20 16:10: WBC 21.5 H, RBC 5.00, Hgb 15.5 H, Hct 46.1, MCV 92.2, MCH 31.0, MCHC 33.6, RDW Std Deviation 49.1 H, RDW Coeff of Jennifer 14.5, Plt Count 359, MPV 9.9, Immature Gran % (Auto) 0.500, Neut % (Auto) 87.0 H, Lymph % (Auto) 5.4 L, [place] % (Auto) 6.7, Eos % (Auto) 0.1, Baso % (Auto) 0.3, Absolute Neuts (auto) 18.7 H, Absolute Lymphs (auto) 1.16, Nucleated RBC % 0 07/26/20 16:10: Sodium 137, Potassium 3.2 L, Chloride 102, Carbon Dioxide 29.0, Anion Gap 6, BUN 33 H, Creatinine 1.51 H, Estim Creat Clear Calc 30.79, Est GFR (MDRD) Af Amer 44 L, Est GFR (MDRD) Non-Af 36 L, BUN/Creatinine Ratio 21.9 H, Glucose 108 H, Calcium 9.3 Assessment/Plan All Active Problems (Last Reviewed 07/02/20 @ 12:12 by Lashell Story) Ureterolithiasis (Acute) Nausea and vomiting (Acute) Eyelid retraction unspecified eye, unspecified lid (Resolved) History of D&C (Resolved) Pneumonia (Resolved) Bronchitis (Resolved) Chest pain, unspecified (Acute) NPO plan for stent placement today NPO for Surgery. Left side.
[2020-07-26] MEDS: Lactated Ringers 1,000 ML 100 ML IV (18:29)
[2020-07-26] MEDS: Cefazolin 2 GM in 0.9% Normal Saline 100 ML IV (18:37)
[2020-07-26] MEDS: Lidocaine Jelly 2% 20 ML Syringe (URO-JET) 20 APPLIC (18:45)
--- NOTE | 2020-07-26 18:57 | OP.PCM_ITS ---
Problem List (1) Ureterolithiasis Status: Acute Report of Operation Date of Procedure: 07/26/20 Pre-Operative Diagnosis: Obstructing left ureteral calculi and left renal calculi Post-Operative Diagnosis: Same Surgery/Procedure Performed:: Cystoscopy, left retrograde pyelogram, interpretation fluoroscopic images, left stent placement Description of Surgical Findings:: 70-year-old female presented to the emergency room she was here yesterday with an obstructing stone in the proximal ureter was sent home for expectant management she came back to the emergency room today with severe pain nausea vomiting not feeling well so we did take her to the surgery today and place a stent she has a very large stone about 7 to 8 mm in size in the proximal left ureter causing obstruction and she has another stone 13 mm in size the lower pole the left kidney. Patient was taken back to the operating room at the smooth induction of anesthesia she was placed upon the table the urethrovaginal area are prepped and draped in usual fashion went into the bladder with a 21 [place] rigid cystourethroscope identified the trigone the left and right ureteral orifice the bladder everything was normal. No tumors or stones seen within the bladder. I then cannulated the left ureteral orifice with a Glidewire advanced a wire up into the left kidney then over the wire I advanced the [place] catheter performed a retrograde pyelogram to see contrast going up the kidney. Then after the retrograde pyelogram put the wire back up past the stone past the obstruction up into the left kidney and then over the wire I placed a stent there was a 6 [place] by 26 cm stent we advanced it over the wire into good position once the stent was in good position I pulled the wire the stent: The kidney bladder in good position I then drained the bladder patient anesthetic was reversed she was taken back to the PACU in stable condition we will keep overnight for observation and then should be discharged we will plan to set her up for shockwave lithotripsy. Type of Anesthesia:: General Drains: stent left 6 x 26 cm - Admit VTE Documentation VTE Present on Admission: No VTE Mechan Device Prophylaxis: SCD's
--- NOTE | 2020-07-26 19:16 | EKG12_ITS ---
Test Reason : PRE-OP Blood Pressure : / mmHG Vent. Rate : 060 BPM Atrial Rate : 060 BPM P-R Int : 152 ms QRS Dur : 096 ms QT Int : 504 ms P-R-T Axes : 051 090 120 degrees QTc Int : 504 ms Normal sinus rhythm Normal ECG When compared with ECG of 20-MAR-2019 02:35, T wave inversion now evident in Anterolateral leads QT has lengthened Confirmed by TRAM YAO, JAY JAY ([id number]), editorial clerk RAHUL VILLALOBOS ([id number]) on 07/29/2020 2:47:40 PM Referred By: MECHE Confirmed By:JAY JAY UGALDE MD
--- NOTE | 2020-07-26 20:14 | NURSING ---
pt voided 200 ml of pink clear urine.
[2020-07-26] MEDS: Albuterol 2.5 MG/3 ML VIAL.NEB. INHALATION (20:15)
[2020-07-26] MEDS: Budesonide Respules 0.5 MG/2 ML AMPUL.NEB. INHALATION (20:15)
[2020-07-26] MEDS: 0.9% Normal Saline 1,000 ML 75 ML IV (22:58)
[2020-07-27 00:21] VITALS: BMI 34.5
[2020-07-27 00:50] VITALS: BP 119/62; PULSE 81; RESP 18; TEMP 36.8; O2SAT 93
[2020-07-27 04:14] VITALS: BP 117/65; PULSE 74; RESP 18; TEMP 36.4; O2SAT 95; BMI 34.5
[2020-07-27 04:15] VITALS: RESP 18
[2020-07-27] MEDS: Cefazolin 1 GM/50 ML BAG IV (05:59)
[2020-07-27] MEDS: Levothyroxine 175 MCG Tablet PO (05:59)
[2020-07-27 06:37] LABS: Absolute Lymphocyte Count 1.43 X10^3/uL (0.83-4.51); Absolute Neutrophil Count 10.3 X10^3/uL (2.0-7.7); Basophil# 0.06 X10^3/uL; Basophil% 0.5 % (0-1); Eosinophil# 0.05 X10^3/uL; Eosinophils% 0.4 % (0-5); Hematocrit 40.1 % (37-47); Hemoglobin 12.9 g/dL (12.0-15.0); Lymphocyte # 1.43 X10^3/ul (4.0); Lymphocyte % 10.9 % (19-41); Mean Corp Hgb Conc 32.2 g/dL (32-36); Mean Corpuscular Hgb 30.4 pg (27.0-32.0); Mean Corpuscular Volume 94.4 fL (81-99); Mean Platelet Vol. 10.4 fl (6.2-12.0); Monocyte# 1.21 X10^3/uL; Monocyte% 9.3 % (0-10); NRBC Flagged by Analyzer 0 % (0-5); Neutrophil # 10.26 X10^3/uL (2.7-7.7); Neutrophil % 78.4 % (47-70); Platelet Count 275 K/mm3 (150-450); RBC Distribution Width CV 14.9 % (11.6-14.6); RBC Distribution Width SD 51.5 fl (35.1-43.9); Red Blood Count 4.25 M/mm3 (4.2-5.4); White Blood Count 13.1 K/mm3 (4.4-11.0)
[2020-07-27 07:01] LABS: Anion Gap 4 (5-15); BUN 26 mg/dL (7-18); BUN/Creat Ratio 29.2 RATIO (10-20); Calcium,Total 8.4 mg/dL (8.5-10.1); Chloride 106 mmol/L (98-107); Creatinine, Serum 0.89 mg/dL (0.55-1.02); EST Glomerular Filtration Rate 67 mL/min (>60); Est Glom Filt Rate - Afr Amer 81 mL/min (>60); Estimated Creatinine Clearance 52.24 ml/min; Glucose 100 mg/dL (74-106); Potassium 3.2 mmol/L (3.5-5.1); Sodium Level 139 mmol/L (136-145)
[2020-07-27 07:03] VITALS: PULSE 74; RESP 16
[2020-07-27] MEDS: Budesonide Respules 0.5 MG/2 ML AMPUL.NEB. INHALATION (07:03)
[2020-07-27] MEDS: Albuterol 2.5 MG/3 ML VIAL.NEB. INHALATION (07:03)
--- NOTE | 2020-07-27 07:14 | NURSING ---
called down to OB to see if Dr. Lentz was on their floor. Liz stated she was in a delivery. This nurse stated that Dr. Lentz's pt is on [facility] room 303 and wanted to notify the Dr about the pt's morning labs. Liz stated she would pass on the message. This RN will notified the oncoming dayshift RN about needing to talk to Dr. Lentz.
[2020-07-27 08:21] VITALS: BMI 34.5
[2020-07-27 09:40] VITALS: BP 118/63; PULSE 86; RESP 18; TEMP 36.9; O2SAT 95
[2020-07-27] MEDS: hydroCHLOROthiazide 25 MG Tablet PO (09:50)
--- NOTE | 2020-07-27 10:08 | PCM.DC.SUM ---
Discharge Date and Diagnosis - Problem List Patient Problems: Active and Suspected Problems (Last Reviewed 07/26/20 @ 17:[address] John Bower MD) Ureterolithiasis (Acute) Nausea and vomiting (Acute) Acute kidney injury (Acute) Flank pain (Acute) Date of Admission: 07/26/20 Date of Discharge: 07/27/20 - Primary Discharge Diagnosis Acute Problems: Active Problems (Last Reviewed 07/26/20 @ 17:[address] John Bower MD) Ureterolithiasis (Acute) Nausea and vomiting (Acute) Acute kidney injury (Acute) Flank pain (Acute) - Secondary Discharge Diagnosis Chronic Problems: Chronic Problems (Last Reviewed 07/26/20 @ 17:[address] John Bower MD) Asthma-chronic obstructive pulmonary disease overlap syndrome (Chronic) Stage 3 severe COPD by GOLD classification (Chronic) FEV1 63% of predicted COPD (chronic obstructive pulmonary disease) (Chronic) HTN (hypertension) (Chronic) Asthma (Chronic) Cough (Chronic) Shortness of breath (Chronic) Hospital Course and Treatment Operations: None, - - Cystoscopy and left stent placement Procedures: None Summary of Care Provided: The patient is a 70 year old female who presented with severe renal colic on the left side from obstructing stone she also has a number of stone in the right kidney she underwent cystoscopy and stent placement yesterday she is feeling much better today we will give her some potassium to collect her correct her electrolytes she has a low potassium hypokalemia. Otherwise she is doing well and she can go home today we will set her up for outpatient procedure to laser the stones. Patient Problems: Active and Suspected Problems (Last Reviewed 07/26/20 @ 17:[address] John Bower MD) Ureterolithiasis (Acute) Nausea and vomiting (Acute) Acute kidney injury (Acute) Flank pain (Acute) - Physical Exam Vitals/I&O's: Vital Signs Temp Pulse Resp BP Pulse Ox 98.5 F 86 18 118/63 95 07/27/20 09:40 07/27/20 09:40 07/27/20 09:40 07/27/20 09:40 07/27/20 09:40 Oxygen Delivery Method Room Air Weight: 91.3 kg Body Mass Index (BMI) 34.5 Finger Stick Blood Glucose 100 Intake and Output for Last 24 Hours 07/25/20 07/26/20 07/27/20 23:59 23:59 23:59 Intake Total 758.33 / 758.33 881.25 / 881.25 Output Total 400 / 400 250 / 250 Balance 358.33 / 358.33 631.25 / 631.25 General: Alert, Oriented x3, Cooperative HEENT: Atraumatic, PERRLA, EOMI, Normocephalic Neck: Supple, No JVD, Negative Carotid Bruits Lungs: Clear to auscultation, Normal air movement Cardiovascular: Regular rate, No murmurs Abdomen: Bowel Sounds Present, Soft, Non Tender Extremities: No edema, Capillary Refill Less than 3 Seconds Skin: No rashes, No breakdown Musculoskeletal: No Tenderness to Palpation of Joints or Extremities Neurological: Cranial nerves II-XII grossly intact Psych/Mental Status: Normal Affect, Appropriate Laboratory Results 07/26/20 16:05: Urine Color Yellow, Urine Clarity Sl. Cloudy, Urine pH 6.0, Ur Specific [place] 1.020, Urine Protein 15 H, Urine Glucose (UA) Normal, Urine Ketones 50 H, Urine Occult Blood 25 H, Urine Nitrite Negative, Urine Bilirubin Negative, Urine Urobilinogen Normal, Ur Leukocyte Esterase 100 H, Urine RBC 0-5 SEEN, Urine WBC 0-5 SEEN, Ur Squamous Epith Cells 0-5 SEEN, Urine Bacteria 1+, Urine Mucus 0 SEEN 07/26/20 16:10: WBC 21.5 H, RBC 5.00, Hgb 15.5 H, Hct 46.1, MCV 92.2, MCH 31.0, MCHC 33.6, RDW Std Deviation 49.1 H, RDW Coeff of Jennifer 14.5, Plt Count 359, MPV 9.9, Immature Gran % (Auto) 0.500, Neut % (Auto) 87.0 H, Lymph % (Auto) 5.4 L, [place] % (Auto) 6.7, Eos % (Auto) 0.1, Baso % (Auto) 0.3, Absolute Neuts (auto) 18.7 H, Absolute Lymphs (auto) 1.16, Nucleated RBC % 0 07/26/20 16:10: Sodium 137, Potassium 3.2 L, Chloride 102, Carbon Dioxide 29.0, Anion Gap 6, BUN 33 H, Creatinine 1.51 H, Estim Creat Clear Calc 30.79, Est GFR (MDRD) Af Amer 44 L, Est GFR (MDRD) Non-Af 36 L, BUN/Creatinine Ratio 21.9 H, Glucose 108 H, Calcium 9.3 07/27/20 05:10: WBC 13.1 H, RBC 4.25, Hgb 12.9, Hct 40.1, MCV 94.4, MCH 30.4, MCHC 32.2, RDW Std Deviation 51.5 H, RDW Coeff of [place] 14.9 H, Plt Count 275, MPV 10.4, Immature Gran % (Auto) 0.500, Neut % (Auto) 78.4 H, Lymph % (Auto) 10.9 L, [place] % (Auto) 9.3, Eos % (Auto) 0.4, Baso % (Auto) 0.5, Absolute Neuts (auto) 10.3 H, Absolute Lymphs (auto) 1.43, Nucleated RBC % 0 07/27/20 05:10: Sodium 139, Potassium 3.2 L, Chloride 106, Carbon Dioxide 29.0, Anion Gap 4 L, BUN 26 H, Creatinine 0.89, Estim Creat Clear Calc 52.24, Est GFR (MDRD) Af Amer 81, Est GFR (MDRD) Non-Af 67, BUN/Creatinine Ratio 29.2 H, Glucose 100, Calcium 8.4 L Current Medications Acetaminophen (Tylenol) 650 mg PO Q6H PRN PRN PRN Reason: Pain Score 1-10/Temp > 100.7 F Hydrocodone Bitart/Acetaminophen ([place] 5mg-325mg) 1 tablet PO Q8H PRN PRN PRN Reason: Pain Score 6-10/10 Albuterol Sulfate (Ventolin Aerosols) 2.5 mg INHALATION Q6HWA.RT [facility] Last Admin: 07/27/20 07:03 Dose: 2.5 mg Documented by: Albuterol/Ipratropium (Duoneb) 3 ml INHALATION Q4H PRN PRN PRN Reason: SOB &/OR WHEEZING Budesonide (Pulmicort Aerosol) 0.5 mg INHALATION Q12H.RT [facility] Last Admin: 07/27/20 07:03 Dose: 0.5 mg Documented by: Docusate Sodium (Colace) 100 mg PO BID PRN PRN PRN Reason: Constipation Hydrochlorothiazide (Hctz) 25 mg PO DAILY [facility] Last Admin: 07/27/20 09:50 Dose: 25 mg Documented by: Sodium Chloride () 1,000 mls @ 75 mls/hr IV .[id number] [facility] Last Infusion: 07/27/20 06:29 Dose: 75 mls/hr Documented by: Cefazolin Sodium () 1 gm in 50 mls @ 100 mls/hr IV Q12@0600,1800 [facility] Stop: 08/01/20 06:01 Last Infusion: 07/27/20 06:29 Dose: Infused Documented by: Levothyroxine Sodium (Synthroid) 175 mcg PO DAILY@0600 [facility] Last Admin: 07/27/20 05:59 Dose: 175 mcg Documented by: Montelukast Sodium (Singulair) 10 mg PO DAILY@1700 [facility] Morphine Sulfate () 2 mg IV Q3H PRN PRN PRN Reason: Pain Score 6-10/10 Ondansetron HCl (Zofran) 4 mg IV Q8H PRN PRN PRN Reason: NAUSEA/VOMITING Oxycodone HCl (Oxyir) 10 mg PO Q4H PRN PRN PRN Reason: Pain Score 4-5/10 Sodium Chloride () 10 - 40 ml IV UD PRN PRN Reason: SALINE FLUSH Discharge Diet: Light diet - advance as tolerated Discharge Activity: Return to Normal Activity, May not drive while taking narcotic pain medications. Call your doctor if your incision/area has: Continuous Slow Oozing, Sudden Increased Bleeding, Increased Pain/ Swelling, Increased Redness, Foul Smelling Discharge, Swelling at the incision site Call your doctor if you observe: Fever of 101 or Higher Home Medications: Medications to take at Discharge Hydrochlorothiazide [Hctz] 25 mg PO DAILY 08/02/17 Levothyroxine [Synthroid] 175 meq PO DAILY 08/02/17 Ipratropium/Albuterol Sulfate [Duoneb] 3 ml INHALATION Q4H PRN PRN 03/13/19 montelukast 10 mg tablet 10 mg PO DAILY@1700 #30 tab 05/06/20 fluticasone 250 mcg-salmeterol 50 mcg/dose blistr powdr for inhalation 1 inh INHALATION BID #60 ea 06/24/20 albuterol sulfate 90 mcg/actuation aerosol inhaler 1 - 2 inh INHALATION Q4H PRN PRN #18 g 07/03/20 Hydrocodone/Acetaminophen [[place] 5-325 Tablet] 1 ea PO Q8H PRN PRN 3 Days #12 tab 07/25/20 Naproxen [Naprosyn] 500 mg PO BID #20 tab 07/25/20 Ondansetron [Zofran Odt] 4 mg PO Q8H PRN PRN 3 Days #10 tab 07/25/20 Primary Care Physician: Amanda Bahena, PA-C [Primary Care Provider] - Please Follow Up With: John Bower MD - [phone] When: to call office to get set up for surgery Medical Necessity - Tobacco Use Smoking Status: Never smoker Meaningful Use Info Meaningful Use Diagnoses (Choose all that apply): None applicable
--- NOTE | 2020-07-27 10:13 | DCINST_ITS ---
Discharge Diet: Light diet - advance as tolerated Discharge Activity: Return to Normal Activity, May not drive while taking narcotic pain medications. Call your doctor if your incision/area has: Continuous Slow Oozing, Sudden Increased Bleeding, Increased Pain/ Swelling, Increased Redness, Foul Smelling Discharge, Swelling at the incision site Call your doctor if you observe: Fever of 101 or Higher Allergies/Adverse Reactions: Allergies levofloxacin [From Levaquin] Adverse Reaction (Verified 07/26/20 15:28) GI upset prednisone Adverse Reaction (Verified 07/26/20 15:28) Other BLURRED VISION, CHEST PAIN/PRESSURE, TACHYCARDIA Medications to take at Discharge Hydrochlorothiazide [Hctz] 25 mg PO DAILY 08/02/17 Levothyroxine [Synthroid] 175 meq PO DAILY 08/02/17 Ipratropium/Albuterol Sulfate [Duoneb] 3 ml INHALATION Q4H PRN PRN 03/13/19 montelukast 10 mg tablet 10 mg PO DAILY@1700 #30 tab 05/06/20 fluticasone 250 mcg-salmeterol 50 mcg/dose blistr powdr for inhalation 1 inh INHALATION BID #60 ea 06/24/20 albuterol sulfate 90 mcg/actuation aerosol inhaler 1 - 2 inh INHALATION Q4H PRN PRN #18 g 07/03/20 Hydrocodone/Acetaminophen [[place] 5-325 Tablet] 1 ea PO Q8H PRN PRN 3 Days #12 tab 07/25/20 Naproxen [Naprosyn] 500 mg PO BID #20 tab 07/25/20 Ondansetron [Zofran Odt] 4 mg PO Q8H PRN PRN 3 Days #10 tab 07/25/20 Cephalexin [Keflex] 500 mg PO Q8 #9 cap 07/27/20 Hydrocodone/Acetaminophen [[place] 5-325 Tablet] 1 each PO Q4H PRN PRN 7 Days #14 tablet 07/27/20 The following prescriptions were given: Cephalexin [Keflex] 500 mg PO Q8 #9 cap Transmission Status: Pending to [id number] Hydrocodone/Acetaminophen [[place] 5-325 Tablet] 1 each PO Q4H PRN PRN 7 Days #14 tablet PRN Reason: Pain Score 1-10/10 Transmission Status: Sent to [id number] Primary Care Physician: Amanda Bahena PALeoncioC [Primary Care Provider] - Test Results: Test results from this visit will be discussed in further detail at your follow- up appointment, if applicable. Please Follow Up With: John Bower MD - [phone] When: please call office
[2020-07-27 11:05] VITALS: BP 135/61; PULSE 81; RESP 16; TEMP 36.7; O2SAT 97
== END 2020-07-27 11:20 | disposition home or self-care (01) ==
LOC: ED 17:32 → SDC 17:32 → MS3 17:32
PROVIDERS: Admitting Provider Urology; Emergency Provider Emergency Medicine; PCP Family Medicine; Visit Provider Urology
PROC: (CPT 52332; principal; 2020-07-26 18:45)
DX: N20.2 Calculus of kidney with calculus of ureter (principal); N17.9 Acute kidney failure, unspecified; J44.9 Chronic obstructive pulmonary disease, unspecified; I10 Essential (primary) hypertension; Z79.899 Other long term (current) drug therapy; Z79.51 Long term (current) use of inhaled steroids; E87.6 Hypokalemia; E05.00 Thyrotoxicosis with diffuse goiter without thyrotoxic crisis or storm; Z87.891 Personal history of nicotine dependence
CPT/HCPCS: 00910; 52332; 36415; 76000; 80048; 81001; 85025; 87086; 87088; 93005; 94640; 96361; 96365; 96375; 99218; 99284; J7030; J7120; A4216; C1769; C2617; G0378; J2405

== ENCOUNTER → 2020-07-30 | Outpatient (CLI) | payer MEDICARE, OTHER, SELFPAY ==
[2020-07-26 19:51] VITALS: BMI 34.5
== END | disposition home or self-care (01) ==
LOC: MTDU 10:50
PROVIDERS: PCP Family Medicine; Referring Provider Urology; Visit Provider Urology
DX: Z11.59 Encounter for screening for other viral diseases (principal)
CPT/HCPCS: 87635; C9803; U0003

== ENCOUNTER 2020-08-03 00:13 | Emergency (ER) | payer MEDICARE, OTHER, SELFPAY ==
[2020-07-26 19:51] VITALS: BMI 34.5
[2020-08-03 00:13] VITALS: BP 183/91; PULSE 103; RESP 16; TEMP 36.3; O2SAT 97; BMI 34.0
--- NOTE | 2020-08-03 00:53 | ED.VIS.GEN ---
History of Present Illness Chief Complaint: Nausea/Vomiting Onset: Hours - 9-10 Context: - - since surgery Timing: Continuous Quality: n/v Current Severity: Severe Maximum Severity: Severe Worsened by: nothing Relieved by: nothing; tried zofran Associated Symptoms: low back pain, mild hematuria Narrative: Patient had kidney stone surgery today, in addition to bilateral ureteral stent placement. She states the pain is not so much of an issue, but since her surgery she has been vomiting and has not been able to keep anything down or stop vomiting. She states she had some low back discomfort but thinks that is from sitting in weird positions, she does not think her kidney stone pain is all that bad, she does not have any abdominal pain although she has a continuous sensation she needs to urinate since the stents were placed. Hematuria is mild, no clots or retention. States she is urinating well. No fevers or chills. - Past Medical History (1) Kidney stones Status: Chronic (2) Asthma Status: Chronic (3) HTN (hypertension) Status: Chronic (4) Stage 3 severe COPD by GOLD classification Status: Chronic Comment: FEV1 63% of predicted Past Medical History - Allergies and Home Meds Allergies/Adverse Reactions: Allergies acetaminophen [From [place]] Adverse Reaction (Verified 08/03/20 00:16) Constipation hydrocodone [From [place]] Adverse Reaction (Verified 08/03/20 00:16) Constipation levofloxacin [From Lev[place]quin] Adverse Reaction (Verified 08/03/20 00:16) GI upset prednisone Adverse Reaction (Verified 08/03/20 00:16) Other BLURRED VISION, CHEST PAIN/PRESSURE, TACHYCARDIA Primary Care Physician: Amanda Bahena PA-C [Primary Care Provider] - Doctors: Sathish - urology Surgical History: tonsillectomy, - - urologic for kid stones Lives: Spouse/ Significant Other Smoking Status: Former smoker - Family History Maternal Family History: Family History (Last Reviewed 07/26/20 @ 17:[address] John Bower MD) Father Heart disease Asthma Mother CAD (coronary artery disease) Sister PAD (peripheral artery disease) Cancer Diabetes Grandfather Diabetes Leukemia Family History: Reports: - - from pneumonia Paternal Family History: Family History (Last Reviewed 07/26/20 @ 17:[address] John Bower MD) Father Heart disease Asthma Mother CAD (coronary artery disease) Sister PAD (peripheral artery disease) Cancer Diabetes Grandfather Diabetes Leukemia Family History: Reports: Heart Disease Review of Systems General: Reports: Malaise. Denies: Chills, Fever, Sweats Eyes: Denies: Visual changes - bilaterally, Diplopia ENT: Denies: Rhinorrhea, Sore throat Cardiovascular: Denies: Chest pain, Palpitations Respiratory: Denies: Dyspnea, Cough, Dyspnea on exertion Gastrointestinal: Reports: Nausea, Vomiting. Denies: Abdominal pain, Diarrhea, Melena, Hematochezia Genitourinary: Reports: Hematuria. Denies: Dysuria, Frequency Musculoskeletal: Reports: Back pain. Denies: Swelling, Extremity Pain Skin: Denies: Rash, Wounds Neurological: Denies: Headache, Weakness, Numbness Physical Exam Vital Signs/Narrative: Vital Signs Temp Pulse Resp BP Pulse Ox 08/03/20 00:13 97.4 F L 103 H 16 183/91 H 97 Inital Vital Signs reviewed: Yes General: Well nourished, Well developed, Obese, No Acute Distress - ill-appearing, vomiting Head: Normocephalic, Atraumatic Eyes: Perrl, EOMI ENT: Moist mucous membranes, No rhinorrhea Neck: Supple, Nontender Cardiovascular: Regular rate, Regular rhythm, No murmurs, Tachycardia Respiratory: No distress, CTA bilaterally, Chest nontender Abdomen: Soft, Nontender, Nondistended, Normal bowel sounds Back: Nontender, Normal Inspection. Negative for: CVA tenderness Extremities: Nontender, No edema Skin: Normal color, No rash, No Trauma Neurological: Alert, Oriented x3, Cranial nerves II-XII grossly intact, Normal Strength, Normal Sensation Psychological: Normal affect, Normal Mood Diagnostic/Tx/Re-eval Laboratory Tests 08/03/20 08/03/20 Range/Units 01:50 00:36 Sodium 136 (136-145) mmol/L Potassium 5.4 H (3.5-5.1) mmol/L Chloride 105 (98-107) mmol/L Carbon Dioxide 24.0 (21.0-32.0) mmol/L Anion Gap 7 (5-15) BUN 12 (7-18) mg/dL Creatinine 0.91 (0.55-1.02) mg/dL Estim Creat Clear Calc 51.09 ml/min Est GFR (MDRD) Af Amer 79 (>60) mL/min Est GFR (MDRD) Non-Af 65 (>60) mL/min BUN/Creatinine Ratio 13.1 (10-20) RATIO Glucose 172 H (74-106) mg/dL Calcium 9.3 (8.5-10.1) mg/dL Urine Color Brown (Yellow) Urine Clarity Sl. Cloudy (Clear) Urine pH 7.0 (5.0 - 8.0) Ur Specific [place] 1.010 (1.002-1.030) Urine Protein 100 H (Negative) mg/dl Urine Glucose (UA) 50 H (Normal) mg/dl Urine Ketones 150 H (Negative) mg/dl Urine Occult Blood 250 H (Negative) /ul Urine Nitrite Negative (Negative) Urine Bilirubin Negative (Negative) mg/dL Urine Urobilinogen Normal (Normal) mg/dl Ur Leukocyte Esterase 100 H (Negative) /ul Urine RBC > 100 SEEN (0-5) /hpf Urine WBC 5-10 SEEN (0-5) /hpf Ur Squamous Epith Cells 0-5 SEEN (5-10) /hpf Ur Transition Epith Cell 0-5 SEEN (0-5) /hpf Urine Bacteria 1+ (None Seen) /hpf Urine Mucus 0 SEEN (<or=2+) /hpf - Medical Decision Making Patient was treated with a liter of IV fluid along with IV Reglan which did help quite a bit although she was still little nauseated. We followed this with a dose of IV Zofran, she was able to tolerate oral fluids but was feeling persistent nausea. She was given Compazine as well as a small dose of Benadryl to prevent EPS and observed for a little while. This helped more and now she feels she can go home. Her urine showed mostly blood, which is expected given her stents, but also some leukocyte esterase, and mild pyuria. I do not think she needs antibiotics but this was sent for culture to ensure that and follow-up. Will prescribe her Reglan so that she has that as an option as well at home. Will follow-up with urology postoperatively. I suspect the vomiting is related to medication she had for the surgery. She has had no headache to suggest a neurologic cause, and I do not suspect she is septic since this started directly after the operation/procedure, and since all of her pain that she had before the procedure is all much less. We discussed reasons to return and she is comfortable with this overall plan. ED Disposition - Plan for ED Patient: Disposition: Home or Assisted Living Diagnosis: Postoperative vomiting Instructions: ED Nausea Vomiting Adult Prescriptions: Metoclopramide [Reglan] 10 mg PO Q6H PRN #20 tab PRN Reason: Nausea/Vomiting Prescription Printed Referrals: Amanda Bahena PA-C [Primary Care Provider] - John Bower MD [STAFF PHYSICIAN] - 1-2 Days if not improving
[2020-08-03] MEDS: Metoclopramide 10 MG/2 ML Vial IV (00:58)
[2020-08-03] MEDS: 0.9% Normal Saline 1,000 ML 999 ML IV (00:58)
[2020-08-03 01:07] LABS: Anion Gap 7 (5-15); BUN 12 mg/dL (7-18); BUN/Creat Ratio 13.1 RATIO (10-20); Calcium,Total 9.3 mg/dL (8.5-10.1); Chloride 105 mmol/L (98-107); Creatinine, Serum 0.91 mg/dL (0.55-1.02); EST Glomerular Filtration Rate 65 mL/min (>60); Est Glom Filt Rate - Afr Amer 79 mL/min (>60); Estimated Creatinine Clearance 51.09 ml/min; Glucose 172 mg/dL (74-106); Potassium 5.4 mmol/L (3.5-5.1); Sodium Level 136 mmol/L (136-145)
[2020-08-03] MEDS: Ondansetron 4 MG/2 ML Vial IV (01:43)
[2020-08-03 01:56] LABS: Mucous, Urine 0 SEEN /hpf (<or=2+)
[2020-08-03 01:58] LABS: Glucose, Dipstick 50 mg/dl (Normal); Leukocyte Esterase-Dipstick 100 /ul (Negative); Nitrite-Dipstick Negative (Negative); Occult Blood-Urine 250 /ul (Negative); Protein-Dipstick 100 mg/dl (Negative); Urine Bilirubin Dipstick Negative (Negative); Urine Clarity Sl. Cloudy (Clear); Urine Urobilinogen Normal (Normal)
[2020-08-03 02:02] LABS: Ketone-Dipstick 150 mg/dl (Negative)
[2020-08-03 02:07] LABS: Red Blood Cells-Urine > 100 SEEN /hpf (0-5); White Blood Cells 5-10 SEEN /hpf (0-5)
[2020-08-03 02:10] LABS: Bacteria 1+ /hpf (None Seen); Squamous Epithelial Cells - UA 0-5 SEEN /hpf (5-10)
[2020-08-03 02:13] LABS: Transitional Epithelial - Ur 0-5 SEEN /hpf (0-5)
[2020-08-03 02:14] LABS: Color, Urine Brown (Yellow)
[2020-08-03] MEDS: DiphenhydrAMINE 50 MG/ML Syringe 12.5 MG IV (03:34)
[2020-08-03] MEDS: proCHLORPERazine 10 MG/2 ML Vial 5 MG IV (03:34)
[2020-08-03 04:47] VITALS: BP 159/81; PULSE 91; RESP 18; O2SAT 98
== END 2020-08-03 04:48 | disposition home or self-care (01) ==
PROVIDERS: Emergency Provider Emergency Medicine; PCP Family Medicine
DX: N99.89 Other postprocedural complications and disorders of genitourinary system (principal); R11.2 Nausea with vomiting, unspecified; R82.81 Pyuria; I10 Essential (primary) hypertension; J44.9 Chronic obstructive pulmonary disease, unspecified; Z87.891 Personal history of nicotine dependence; E66.9 Obesity, unspecified
CPT/HCPCS: 80048; 81001; 87086; 87088; 96361; 96374; 96375; 99284; J7030; A4216; J2405

== ENCOUNTER → 2020-10-14 12:17 | Outpatient (CLI) | payer MEDICARE, OTHER, SELFPAY ==
[2020-10-14 13:40] LABS: T4 Free Direct 1.41 ng/dL (0.76-1.46); Thyroid Stim Hormone (TSH) 2.72 uIU/mL (0.358-3.74)
== END ==
PROVIDERS: PCP Family Medicine; Referring Provider Internal Medicine; Visit Provider Internal Medicine
DX: E03.9 Hypothyroidism, unspecified (principal)
CPT/HCPCS: 36415; 84439; 84443

== ENCOUNTER → 2021-03-11 11:35 | Outpatient (CLI) | payer MEDICARE, OTHER, SELFPAY ==
[2021-01-21 13:11] VITALS: BMI 31.4
[2021-03-11 12:40] LABS: T4 Free Direct 1.98 ng/dL (0.76-1.46); Thyroid Stim Hormone (TSH) 0.32 uIU/mL (0.358-3.74)
== END ==
PROVIDERS: PCP Family Medicine; Referring Provider Internal Medicine; Visit Provider Internal Medicine
DX: E03.9 Hypothyroidism, unspecified (principal)
CPT/HCPCS: 36415; 84439; 84443

== ENCOUNTER 2021-12-24 10:26 | Outpatient (CLI) | payer MEDICARE, OTHER, SELFPAY ==
[2021-12-24 12:24] LABS: AST(SGOT) 21 U/L (15-37); Alanine Aminotransfer ALT/SGPT 34 U/L (13-56); Albumin, Serum 3.5 g/dL (3.2-5.0); Alkaline Phosphatase 120 U/L (45-117); Anion Gap 4 (5-15); BUN 20 mg/dL (7-18); BUN/Creat Ratio 25.8 RATIO (10-20); Calcium,Total 9.6 mg/dL (8.5-10.1); Chloride 105 mmol/L (98-107); Cholesterol 283 mg/dL (200); Creatinine, Serum 0.78 mg/dL (0.55-1.02); EST Glomerular Filtration Rate 78 mL/min (>60); Est Glom Filt Rate - Afr Amer 95 mL/min (>60); Globulin 3.5 g/dL (2.2-4.2); Glucose 86 mg/dL (74-106); High Density Lipoprotein 78 mg/dL; Potassium 3.8 mmol/L (3.5-5.1); Sodium Level 139 mmol/L (136-145); T4 Free Direct 1.34 ng/dL (0.76-1.46); Thyroid Stim Hormone (TSH) 5.33 uIU/mL (0.358-3.74); Triglycerides 67 mg/dL; Very Low Density Lipoprotein 13 mg/dL (5-40)
== END 2021-12-24 23:59 | disposition home or self-care (01) ==
PROVIDERS: PCP Family Medicine; Referring Provider Internal Medicine; Visit Provider Internal Medicine
DX: E03.9 Hypothyroidism, unspecified (principal); Z79.899 Other long term (current) drug therapy
CPT/HCPCS: 36415; 80053; 80061; 84439; 84443

== ENCOUNTER → 2023-03-20 | Outpatient (CLI) | payer MEDICARE, OTHER, SELFPAY ==
--- NOTE | 2023-03-20 07:50 | RAD_ITS ---
STUDY: X-RAY - LEFT RADIUS AND ULNA REASON FOR EXAM: Female, 72 years old. PAIN TECHNIQUE: 2 view(s) of the forearm. COMPARISON: None. FINDINGS: There is no demonstrated soft tissue swelling. Normal visualized radius. Subcortical lucencies involving the ulna and ulnar styloid better seen on wrist x-rays. There is no demonstrated acute fracture. RAD/Forearm 2 Views IMPRESSION: No demonstrated fracture or malalignment. Electronically Signed: Gokul Judd (Brooks), at 19:57 EDT ,
--- NOTE | 2023-03-20 07:50 | RAD_ITS ---
STUDY: X-RAY - LEFT WRIST REASON FOR EXAM: Female, 72 years old. PAIN TECHNIQUE: 3 view(s) of the wrist were obtained. COMPARISON: None. FINDINGS: Subcortical lucencies involving the ulna and ulnar styloid best seen on frontal and oblique views. Normal radiocarpal articulation. Normal distal radioulnar articulation. Normal carpal bones. Normal carpal articulations. Normal carpometacarpal articulation of the thumb. Normal second through fifth carpometacarpal articulations. Normal visualized metacarpal bones. The soft tissue structures are unremarkable. RAD/Wrist min 3 Views IMPRESSION: No fracture or malalignment. Subcortical cysts and cortical erosion of the distal ulna and can be sequela of previous sequela or erosive arthropathy. Electronically Signed: Gokul Judd (Brooks), at 18:19 EDT ,
== END | disposition home or self-care (01) ==
LOC: RAD.FUTURE 07:29 → RAD 07:42
PROVIDERS: PCP Family Medicine; Referring Provider Chiropractor; Visit Provider Chiropractor
DX: M25.532 Pain in left wrist (principal); M25.542 Pain in joints of left hand; M79.632 Pain in left forearm
CPT/HCPCS: 73090; 73110

== ENCOUNTER 2025-02-27 17:53 | Emergency (ER) | payer MEDICARE, OTHER, SELFPAY ==
[2025-02-27 17:54] VITALS: BP 226/113; PULSE 82; RESP 16; TEMP 36.7; O2SAT 96; BMI 31.1
--- NOTE | 2025-02-27 19:31 | EX.ED.DYSGE1 ---
HPI History of Present Illness Chief Complaint: Hypertension Detail of Chief Complaint: Asymptomatic hypertension Informant: patient and spouse/S.O. Onset/Context/Timing Onset: Days (Started February 25) Context: Sudden Onset Timing: Continuous Quality: Systolic pressure at home greater than 230 Location: Cardiovascular Current Severity: Moderate Maximum Severity: Moderate Worsened by: Unknown Relieved by: Nothing Associated Symptoms Associated Symptoms: None Narrative Narrative: Patient 74-year-old woman essential hypertension for years. She is pleasant metoprolol 25 mg succinate twice daily and hydrochlorothiazide 25 mg daily. She also was seen by her doctor. She is scheduled for a ultrasound of her neck because of a bruit. She was on metoprolol 50 once a day. Was changed to 25 twice daily. The hydrochlorothiazide dose has not been changed. She denies headache. She has double vision blurred vision loss of vision. She has chronic tinnitus. Denies decreased hearing. She denies trouble with speech or swallowing. She denies chest pain or back pain. Denies shortness of breath. Denies orthopnea or PND. She denies nausea or vomiting. She denies problems with balance or coordination. She denies paresthesia, anesthesia or motor weakness upper or lower extremity. She had recent blood work that was all normal. There was no evidence of endorgan dysfunction. This was performed on Wednesday Prior similar symptoms: Yes Recent Illness/Hospitalization: Yes [facility] Medical History (Updated 02/27/25 @ 19:[address] Des Avila MD) Pneumonia COPD (chronic obstructive pulmonary disease) Bronchitis Chest pain, unspecified Asthma HTN (hypertension) Cough Shortness of breath Home Medications ?Medication ?Instructions ?Recorded ?Last Taken ?Type hydrochlorothiazide 25 mg tablet 25 mg PO DAILY BP 08/02/17 07/26/20 History ipratropium 0.5 mg-albuterol 3 mg 3 ml inhalation Q4H PRN PRN Sob 03/13/19 03/19/19 History (2.5 mg base)/3 mL nebulization &/Or Wheezing soln albuterol sulfate 90 mcg/actuation 2 puff inhalation Q4H PRN 08/24/23 Unknown Rx aerosol inhaler (Ventolin HFA) shortness of breath or wheezing #8.5 grams amlodipine 5 mg tablet mg PO 08/24/23 Unknown History cetirizine 10 mg tablet (Zyrtec) 10 mg PO DAILY PRN 08/24/23 Unknown History naproxen 500 mg tablet 500 mg PO BID PRN 08/24/23 Unknown History levothyroxine 150 mcg tablet 150 mcg PO QDAY 02/14/24 Unknown History (Synthroid) fluticasone 250 mcg-salmeterol 50 inhalation BID 02/13/25 Unknown History mcg/dose blistr powdr for inhalation fluticasone propionate 230 2 inh inhalation BID #1 ea 02/13/25 Unknown Rx mcg-salmeterol 21 mcg/actuation HFA inhaler (Advair HFA) metoprolol succinate 50 mg 50 mg PO QPM 02/13/25 Unknown History tablet,extended release 24 hr clonidine HCl 0.1 mg tablet 0.1 mg PO BID #60 tabs 02/27/25 Unknown Rx Allergy/AdvReac Type Severity Reaction Status Date / Time acetaminophen (From [place]) AdvReac Constipatio Verified 02/27/25 17:59 n hydrocodone (From [place]) AdvReac Constipatio Verified 02/27/25 17:59 n levofloxacin (From [place]quin) AdvReac GI upset Verified 02/27/25 17:59 losartan AdvReac Abd Verified 02/27/25 17:59 cramps/diarrhea prednisone AdvReac Other Verified 02/27/25 17:59 Family History Father Heart disease Asthma Mother CAD (coronary artery disease) Sister PAD (peripheral artery disease) Cancer Lung Diabetes Grandfather Diabetes Leukemia Surgical History Eyelid retraction unspecified eye, unspecified lid History of D&C Social History household members: spouse housing: house pets and animals: Yes pets and animals: dog(s) Smoking Status: Former smoker Tobacco: How many years used: 30 how long ago did patient quit smokin, 1ppd second hand exposure: Yes alcohol intake: never substance use type: does not use ROS ROS ED Constitutional Constitutional ED: Denies chills, fever(s), subjective or sweats Eyes Eyes: Denies blurry vision, change in vision or diplopia ENT ENT ED: Denies rhinorrhea or sore throat Cardiovascular Cardiovascular: Denies chest pain, orthopnea, palpitations or paroxysmal nocturnal dyspnea Respiratory/Chest Respiratory/Chest: Denies cough, dyspnea, dyspnea on exertion, orthopnea or paroxysmal nocturnal dyspnea Gastrointestinal Gastrointestinal: Denies nausea or vomiting Musculoskeletal Musculoskeletal: Denies back pain Neurologic Neurologic: Reports other Details: See HPI narrative for more detail ; Denies headache(s), paresthesias or weakness Hematologic/Lymphatic Hematologic/Lymphatic: Reports systems reviewed and no addt'l complaints, except as documented EXAM Physical Exam Const Vital Signs: 02/27/25 17:54 02/27/25 18:41 Temperature 98.1 F Temperature Source Oral Pulse Rate 82 Respiratory Rate 16 Respiratory Effort Normal Non-Labored Respiratory Pattern Normal Blood Pressure 226/113 H Blood Pressure Mean 150 Pulse Ox 96 Oxygen Delivery Method Room Air Blood pressure is elevated 226/113. Positive well nourished and well developed General Appearance ED: well developed and NAD; Negative for cyanotic, diaphoretic or pallor HEENT Reports moist mucous membranes HEENT Narrative: Ears are normal. Nares patent. Uvula is midline. No deviation tongue protrusion Cardio regular rate, regular rhythm, S1 normal heart sound, S2 normal heart sound and no murmurs Extremity normal to inspection Neuro oriented x3, CN's II-XII intact bilaterally and no sensory deficits noted Neuro Narrative: There is no dysmetria. Sensorium / Orientation: alert Motor Exam: strength 5/5 throughout Skin no rashes or lesions noted, no wounds and skin turgor normal General Skin Exam: Negative for jaundice or pallor MDM MDM MDM Narrative Medical decision making narrative: Patient has asymptomatic hypertension. Since she had blood work done this week there is no indication to repeat this. She does have a carotid bruit on the right. She is scheduled for a ultrasound of her carotids. Since she is asymptomatic nothing further needs to be done with respect to the bruit. Plan is clonidine 0.1 mg in the Emergency Department and discharge prescription for clonidine. Patient will not take SARY inhibitors because her sister developed angioedema and was placed in a coma because of persistent angioedema. She also had cancer. History & Record Review Additional record(s) reviewed:: Prior outpatient record (Patient is followed in the pulmonary office. Tatiana Benjamin's note was reviewed. She is seen for asthma chronic obstructive pulmonary disease, overlapping syndrome. Most recent visit was February 13. She was last seen by Dr. Sifuentes in August 2023.) and Prior ED visit (Most recent ER visit is August [address] Clint Santana's note was reviewed.) Treatment and Re-Evaluation :: Patient was informed why her blood pressure was not lowered quickly. Based on study that was performed many years ago. Discharge Plan Triage Chief Complaint: Hypertension ED Provider: Des Avila Dx/Rx/DC Orders Clinical Impression: Asymptomatic hypertensive urgency, Stage 3 severe COPD by GOLD classification, HTN (hypertension) Instructions: ED High Blood Pressure Hypertension Prescriptions: New clonidine HCl 0.1 mg tablet 0.1 mg PO BID Qty: 60 0RF No Action amlodipine 5 mg tablet PO naproxen 500 mg tablet 500 mg PO BID PRN cetirizine [Zyrtec] 10 mg tablet 10 mg PO DAILY PRN albuterol sulfate [Ventolin HFA] 90 mcg/actuation HFA aerosol inhaler 2 puff inhalation Q4H PRN (Reason: shortness of breath or wheezing) Qty: 8.5 6RF levothyroxine [Synthroid] 150 mcg tablet 150 mcg PO QDAY metoprolol succinate 50 mg tablet extended release 24 hr 50 mg PO QPM fluticasone propion-salmeterol 250-50 mcg/dose blister with device inhalation BID fluticasone propion-salmeterol [Advair HFA] 230-21 mcg/actuation HFA aerosol inhaler 2 inh inhalation BID Qty: 1 11RF hydrochlorothiazide 25 MG tablet 25 mg PO DAILY Patient Comments: bp ipratropium-albuterol 3 ML solution for nebulization 3 ml INHALATION Q4H PRN PRN (Reason: Sob &/Or Wheezing) Primary Care Provider: Amanda Bahena Referrals: Amanda Bahena, PALeoncioC [Primary Care Provider] - 1 Week Print Language: Japanese Disposition Disposition: Home, Self Care
[2025-02-27] MEDS: cloNIDine HCl 0.1 MG Tablet PO (19:44)
[2025-02-27 19:49] VITALS: BP 202/87; PULSE 84; RESP 15; TEMP 36.7; O2SAT 97
== END 2025-02-27 19:50 | disposition home or self-care (01) ==
PROVIDERS: Emergency Provider Emergency Medicine; PCP Family Medicine; Visit Provider Emergency Medicine
DX: I16.0 Hypertensive urgency (principal); J44.9 Chronic obstructive pulmonary disease, unspecified; I10 Essential (primary) hypertension; H53.8 Other visual disturbances; H93.19 Tinnitus, unspecified ear; Z87.891 Personal history of nicotine dependence; Z79.899 Other long term (current) drug therapy; R09.89 Other specified symptoms and signs involving the circulatory and respiratory systems
CPT/HCPCS: 99282

== ENCOUNTER → 2025-03-02 | Outpatient (CLI) | payer MEDICARE, OTHER, SELFPAY ==
--- NOTE | 2025-03-02 08:49 | CT_ITS ---
PROCEDURE: CT HEAD WITHOUT CONTRAST AND CTA HEAD AND NECK W/ CONTRAST, 03/02/2025 REASON FOR EXAM: SEVERE BILATERAL CAROTID STENOSIS >70% TECHNIQUE: CT head was performed without IV contrast. Subsequently, CTA head and neck was performed with IV contrast. Multiplanar reformats as well as MIP and 3D reconstructions were generated. CONTRAST: Isovue 370 VOLUME: 100mL RADIATION DOSE SUMMARY: CTDlvol: 44.99+ 16.61+ 18.17 mGy DLP: 1448.74 mGycm One or more dose reduction techniques were used (e.g., Automated exposure control, adjustment of the mA and/or kV according to patient size, use of iterative reconstruction technique). COMPARISON: None. FINDINGS: Note the exam is optimized for evaluation of the head and major cervical/intracranial arterial vasculature rather than the remaining soft tissues. CT HEAD: Cerebrum: No visible acute hemorrhage, definite acute territorial infarct, or visible mass. Minimal cerebral volume loss. Cerebellum/brainstem: Unremarkable. Note slight limitation due to beam hardening artifact. Ventricles/extra-axial spaces: Age-appropriate appearance. Visualized paranasal sinuses/mastoid air cells: Unremarkable. Scalp/calvarium: Unremarkable. Other: Unremarkable. CTA NECK: Aortic Arch: Nonobstructing atherosclerosis.. Brachiocephalic and subclavians: 70% stenosis along the distal LEFT subclavian, distal to the LEFT vertebral artery origin. Less than 20 % stenosis at the origin of the LEFT subclavian. RIGHT Carotid: Right CCA: Mild 20% stenosis at the origin. Right ICA: 80% stenosis just beyond the origin of the RIGHT. Nonobstructing atherosclerosis in the bulb. Retropharyngeal course. Right ECA: 30% stenosis of the origin. LEFT Carotid: Left CCA: Patent. Left ICA: 80% stenosis in the LEFT carotid bulb and ICA origin. Left ECA: Less than 20% stenosis at the origin. Vertebrals: Slight LEFT dominance. Arise from the subclavians. Both vertebrals form the basilar. RIGHT Vertebral: Patent. LEFT Vertebral: 50% stenosis at the origin. CTA HEAD: Slight limitation related to venous contamination. Anterior circulation: Patent. Posterior circulation: Patent. origin of the RIGHT INFORMATION TECHNOLOGY ARCHITECT. RIGHT PICA and LEFT AICA are visualized. Venous structures: Grossly unremarkable within limits of nondedicated technique. Other: Mild cervical spondylosis. Demineralization. Reversal of the normal cervical lordosis may be positional, degenerative, or related to pain/muscular spasm.. Mild cervicothoracic levoscoliosis may be positional. Emphysema. Biapical pleural/parenchymal scarring. Atrophic or absent thyroid. Complete effacement of the LEFT piriform sinus. CT/CTA Head AND Neck W/ Contrast IMPRESSION: 1. Severe 80% stenoses just beyond the origin of the RIGHT ICA and involving th e LEFT carotid bulb and ICA origin. Severe 70% stenosis along the distal LEFT subclavian. Additional less severe stenoses as detailed. 2. Complete effacement of the LEFT piriform sinus without measurable mass. Thi s could reflect asymmetric atrophy related to dysfunction of the RIGHT recurrent laryngeal nerve or an occult laryngeal lesio n on the LEFT. Recommend direct visualization and consider CT neck/chest with contrast as indicated. 3. No visible acute noncontrast intracranial findings. 4. Additional description as above. Reading Location: [id number]
== END | disposition home or self-care (01) ==
PROVIDERS: PCP Family Medicine; Referring Provider Physician Assistant; Visit Provider Physician Assistant
DX: I65.23 Occlusion and stenosis of bilateral carotid arteries (principal)
CPT/HCPCS: 70496; 70498; Q9967

== ENCOUNTER 2025-04-09 10:34 | Inpatient (IN) | payer MEDICARE, OTHER, SELFPAY ==
--- NOTE | 2025-03-21 11:29 | EKG12_ITS ---
Test Reason : PREOP Blood Pressure : */* mmHG Vent. Rate : 66 BPM Atrial Rate : 66 BPM P-R Int : 176 ms QRS Dur : 98 ms QT Int : 406 ms P-R-T Axes : 33 51 62 degrees QTcB Int : 425 ms Normal sinus rhythm Normal ECG Confirmed by TRAM YAO, JAY JAY ([id number]), editor in chief newspaper VEGA TOLBERT ([id number]) on 03/21/2025 1:01:45 PM Referred By: Papo Sumner Confirmed By: JAY JAY UGALDE MD
[2025-03-21 12:48] LABS: Absolute Neutrophil Count 6.9 X10^3/uL (2.0-7.7); Basophil# 0.05 X10^3/uL; Basophil% 0.5 % (0-1); Eosinophil# 0.11 X10^3/uL; Eosinophils% 1.2 % (0-5); Hematocrit 44.7 % (37-47); Hemoglobin 14.7 g/dL (12.0-15.0); Lymphocyte % 17.4 % (19-41); Mean Corp Hgb Conc 32.9 g/dL (32-36); Mean Corpuscular Hgb 30.4 pg (27.0-32.0); Mean Corpuscular Volume 92.4 fL (81-99); Mean Platelet Vol. 10.6 fl (6.2-12.0); Monocyte# 0.51 X10^3/uL; Monocyte% 5.5 % (0-10); NRBC Flagged by Analyzer 0 % (0-5); Platelet Count 358 K/mm3 (150-450); RBC Distribution Width CV 15.4 % (11.6-14.6); RBC Distribution Width SD 52.4 fl (35.1-43.9); Red Blood Count 4.84 M/mm3 (4.2-5.4); White Blood Count 9.2 K/mm3 (4.4-11.0)
[2025-03-21 15:08] LABS: Anion Gap 11 (5-15); BUN 24 mg/dL (4-19); BUN/Creat Ratio 28.5 RATIO (10-20); Calcium,Total 10.2 mg/dL (7.6-11.0); Carbon Dioxide 26.9 mmol/L (21.0-32.0); Chloride 104 mmol/L (98-108); Creatinine, Serum 0.83 mg/dL (0.70-1.20); EST Glomerular Filtration Rate 75 (>60); Glucose 99 mg/dL (70-99); Potassium 3.8 mmol/L (3.3-5.1); Sodium Level 142 mmol/L (133-145)
[2025-03-21 15:14] LABS: Thyroid Stim Hormone (TSH) 0.576 uIU/mL (0.300-4.200)
--- NOTE | 2025-03-22 13:17 | PAT.ANESEVAL ---
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 When Was Last Pacemaker Check QUESTION #4 FULL TEXT: You/Your Family Experience fever (hyperthermia) with Anesthesia Last Oral Intake Last Oral intake: Last Oral Intake NPO since Meds taken in AM with sips of water? Meds patient instructed to take am of surgery PONV PONV - automotive service manager: PONV - automotive service manager Female Yes 03/20/25 15:02 HX of Motion Sickness Yes 03/20/25 15:02 HX of N/V After Surgery Yes 03/20/25 15:02 Non-Smoker Yes 03/20/25 15:02 Duration of Surgery greater No 03/20/25 15:02 than 60 minutes Number of Risk Factors 4 03/20/25 15:02 PONV Score Severe Risk 03/20/25 15:02 Height & Weight Height & Weight: Anesthesia: Height & Weight Height 5 ft 4 in 03/01/25 11:31 Respiratory Assessment Respiratory Assessment - automotive service manager: Respiratory Tract Infection Hx - automotive service manager Hx Respiratory Tract Infection No 03/20/25 15:02 STOP Sleep Apnea STOP Sleep Apnea - automotive service manager: STOP Sleep Apnea - automotive service manager Hx Hypertension Yes 03/20/25 15:02 Hx Sleep Apnea No 03/20/25 15:02 CPAP BIPAP Do you snore loudly (louder No 03/20/25 15:02 than talking or can be heard Do you often feel tired/ No 03/20/25 15:02 fatigued/ sleepy during daytime? Has anyone observed you stop No 03/20/25 15:02 breathing during sleep? STOP Results Negative 03/20/25 15:02 QUESTION #5 FULL TEXT : Do you snore loudly (louder than talking or can be heard through closed doors)? Tobacco Use History Tobacco Use History - automotive service manager: Tobacco Use History - automotive service manager Tobacco Use Smoking Status Former smoker 03/20/25 15:02 Hx Tobacco Use No 03/20/25 15:02 Years Smoking Packs Smoked per Day Smoking Cessation Date was Yes - quit smoking within 15 03/20/25 15:02 within the last 15 years years Hx Smoking Cessation Date Hx Smoking Cessation No 03/20/25 15:02 Counseling Hematologic Medial History Hematologic Hx - automotive service manager: Hematologic Medical Hx - take away man Hx of Blood Transfusion No 03/20/25 15:02 Hx of Transfusion in last 3 No 03/20/25 15:02 Months Date of Last Transfusion (if within last 3 months) Ever experience any problems No 03/20/25 15:02 with transfusion(s)? Specify any problems Hx of Preganancy in last 3 No 03/20/25 15:02 Months Nurse Filling Out Transfusion VLEHMAN 03/20/25 15:02 & Questions: Date: 03/20/25 03/20/25 15:02 Time: 15:13 03/20/25 15:02 Patient unable to answer at this time (ie. confused, unrespo /Reproduction History /Reproductive History - automotive service manager: /Reproductive Hx- automotive service manager Hx Now No 03/20/25 15:02 Gestational Age (in weeks): EDC: Hx Hx Para Hx Section [facility] No [facility] (Updated 03/20/25 @ 15:11 by Ivis Chinchilla) Wears glasses Post-menopausal Anxiety Thyroid disease Arthritis History of renal disease High cholesterol Easy bruising Gastric reflux History of hiatal hernia Graves disease Former smoker Cardiology follow-up encounter History of echocardiogram History of stress test Hiatal hernia Pneumonia COPD (chronic obstructive pulmonary disease) Bronchitis Chest pain, unspecified Asthma HTN (hypertension) Cough Shortness of breath Home Medications ?Medication ?Instructions ?Recorded ?Last Taken ?Type hydrochlorothiazide 25 mg tablet 25 mg PO DAILY BP 08/02/17 07/26/20 History ipratropium 0.5 mg-albuterol 3 mg 3 ml inhalation Q4H PRN PRN Sob 03/13/19 03/19/19 History (2.5 mg base)/3 mL nebulization &/Or Wheezing soln albuterol sulfate 90 mcg/actuation 2 puff inhalation Q4H PRN 08/24/23 Unknown Rx aerosol inhaler (Ventolin HFA) shortness of breath or wheezing #8.5 grams cetirizine 10 mg tablet (Zyrtec) 10 mg PO DAILY PRN allergy symptoms 08/24/23 Unknown History naproxen 500 mg tablet 500 mg PO BID PRN pain 08/24/23 Unknown History levothyroxine 150 mcg tablet 150 mcg PO QDAY THYROID 02/14/24 Unknown History (Synthroid) fluticasone propionate 230 2 inh inhalation BID ASTHMA #1 ea 02/13/25 Unknown Rx mcg-salmeterol 21 mcg/actuation HFA inhaler (Advair HFA) clonidine HCl 0.1 mg tablet 0.1 mg PO BID HTN #60 tabs 02/27/25 Unknown Rx aspirin 81 mg tablet,delayed 81 mg PO DAILY SUPPLEMENT #360 tabs 03/01/25 Unknown Rx release (Adult Aspirin Regimen) clopidogrel 75 mg tablet (Plavix) 75 mg PO DAILY BLOOD THINNER #30 03/01/25 Unknown Rx tabs metoprolol succinate 50 mg 25 mg PO BID BP 03/01/25 Unknown History tablet,extended release 24 hr budesonide-formoterol HFA 160 2 puff inhalation BID ASTHMA 03/20/25 Unknown History mcg-4.5 mcg/actuation aerosol inhaler Allergy/AdvReac Type Severity Reaction Status Date / Time shellfish derived Allergy Anaphylaxis Verified 03/20/25 14:52 Iodinated Contrast Media AdvReac Intermediate Rash Verified 03/20/25 14:52 acetaminophen (From [facility]) AdvReac Constipatio Verified 03/20/25 14:52 n hydrocodone (From [facility]) AdvReac Constipatio Verified 03/20/25 14:52 n levofloxacin (From Levaquin) AdvReac GI upset Verified 03/20/25 14:52 losartan AdvReac Abd Verified 03/20/25 14:52 cramps/diarrhea prednisone AdvReac Other Verified 03/20/25 14:52 Family History Father Heart disease Asthma Mother CAD (coronary artery disease) Sister PAD (peripheral artery disease) Cancer Lung Diabetes Grandfather Diabetes Leukemia Surgical History (Updated 03/20/25 @ 15:11 by Ivis Chinchilla) History of bilateral cataract extraction History of cardiac catheterization History of urethral stent Eyelid retraction unspecified eye, unspecified lid History of D&C Social History household members: spouse housing: house pets and animals: Yes pets and animals: dog(s) Smoking Status: Former smoker Tobacco: How many years used: 30 how long ago did patient quit smokin, 1ppd second hand exposure: Yes alcohol intake: never substance use type: does not use Audit: Pertinent Findings Pertinent Findings EKG Perinent findings: 03/21/2025. Normal sinus rhythm 6 6 bpm normal EKG Stress test pertinent findings: 03/20/2019. Negative. EF 60%. Pulmonary function results/spirometer pertinent findings: 03/09/2019. Partially reversible severe large airway obstructive ventilatory defect. Pattern consistent with COPD disease/asthma overlap syndrome. Recommendation Anesthesia Recommendation Anesthesia recommendation: OPTIMIZED for anesthesia
[2025-04-09] VITALS (49 sets, daily range): BP systolic 100–202; BP diastolic 42–95; PULSE 63–83; RESP 12–23; TEMP 36.5–37.1; O2SAT 9–99; BMI 30.6; BMI 33.1
--- OUTSIDE RECORDS SUMMARY | 2025-04-09 05:16 | XMS RPT_ITS | CCD ---
Author Organization [facility] Care Team Providers Care Healthcare Or Medical Name Role Phone Terry AJ Freda N Unavailable Monikaar ORE SMELTER, Freda N Unavailable [phone] COREA PA-C, YOVANY Primary Care Physician [phone] TYLER YAO, DR THOMAS Attending Unavailable IGOR MONTANO MD Referring Unavailabl e COREA, YOVANY Primary Care Unavailable Alexandria PA-C, Yovany Primary Care Provider Shruti BRUNNER-C, Yovany Referring Provider Pebbles BERMAN-CTatiana Attending Provider Dr. Des Avila MD Emergency Provider [place], [place] PAC Consulting Unavailable COREA, YOVANY Admitting Unavailable COREA, YOVANY Primary Care Unavailable COREA, YOVANY Attending Unavailable PROVIDER, UNKNOWN Consulting Unavailable COREA, YOVANY Admitting Unavailable COREA, YOVANY Primary Care Unavailable COREA, YOVANY Consulting Unavailable COREA, YOVANY Attending Unavailable PROVIDER, UNKNOWN Consulting Unavailable COREA, YOVANY Admitting Unavailable COREA, YOVANY Primary Care Unavailable COREA, YOVANY Consulting Unavailable COREA, YOVANY Attending Unavailable PROVIDER, UNKNOWN Consulting Unavailable COREA, YOVANY Admitting Unavailable COREA, YOVANY Primary Care Unavailable COREA, YOVANY Consulting Unavailable COREA, YOVANY Attending Unavailable PROVIDER, UNKNOWN Consulting Unavailable Dr. Des Avila MD Attending Provider Zeinab Keita Attending Provider [phone] Zeinab Keita Referring Provider [phone] Papo Sumner MD Attending Provider [facility] Referring Unavailable [facility] Unavailable Carrillo, Zeinab Attending Unavailable [facility] Referring Unavailable [facility] Unavailable Tatiana Rogel NP Attending Unavailable [facility] Unavailable [place], Papo Referring Unavailable Pepe Sanchez Attending Unavailable Taisha, Papo Attending Unavailable [place], Papo Admitting Unavailable [facility] Unavailable [place], Papo Referring Unavailable Carrillo, Zeinab Referring Unavailable Carrillo, Zeinab Attending Unavailable [facility] Unavailable [facility] Unavailable Avila, Des Attending Unavailable [place], Papo Attending Unavailable [facility] Referring Unavailable [facility] Unavailable Allergies Allergy Classification Reported Allergen(s) Allergy Type Date of Onset Reaction(s) Facility (3 sources) Acetaminophen Drug Allergy 07-22-20 Drug-induced constipation with proper administration [facility] (3 sources) HYDROcodone Drug Allergy 07-22-20 Drug-induced constipation with proper administration [facility] (3 sources) levoFLOXacin Drug Allergy 07-22-20 GI upset [facility] (3 sources) predniSONE Drug Allergy 07-22-20 Other [facility] Comment on above: BLURRED VISION, CHES T PAIN/PRESSURE, TACHYCARDIA (2 sources) Losartan Drug Allergy 02-28-20 Abd cramps/diarrhea [facility] (1 source) HYDROcodone Drug Allergy [facility] (1 source) levoFLOXacin Drug Allergy [facility] (1 source) Triiodobenzoic Acids Propensity to adverse reactions 03-05-20 Rash [facility] (1 source) Acetaminophen Drug Allergy 03-20-20 [facility] (1 source) HYDROcodone Drug Allergy 03-20-20 [facility] (1 source) levoFLOXacin Drug Allergy 03-20-20 [facility] (1 source) Losartan Drug Allergy 03-20-20 [facility] (1 source) predniSONE Drug Allergy 03-20-20 [facility] (1 source) Shellfish Drug allergy (disorder) 03-20-20 [facility] (1 source) Iodinated Contrast Media Drug allergy (disorder) 03-20-20 [facility] Repository Medications Current Medications Medication Drug Class(es) Dates Sig (Normalized) Sig (Original) albuterol 0.833 mg/ml / ipratropium bromide 0.167 mg/ml inhalation solution (3 sources) Anticholinergic, beta2-Adrenergic Agonist Start: 03-13-2019 take 1 mL by inhalation every four hours as needed for wheezing Ipratropium-Albuter ol 3 ML solution for nebulization Active 3 mL INHALATION EVERY 4 HOURS NEEDED as needed for Sob &/Or Wheezing March 13, 2019 12:00am Start: 03-13-2019 take 1 mL by inhalat ion every four hours as needed Ipratropium-Albuterol Active 3 ML INHALATION EVERY 4 HOURS NEEDED March 13, 2019 12:00am amLODIPine 5 mg oral tablet (5 sources) Dihydropyridine Calcium Channel [place] Start: 08-24-2023 Amlodipine 5 mg tablet Active mg PO August 24, 2023 12:00am Start: 03-21-2019 End: 07-31-2019 take 1 tablet by mouth once daily Amlodipine 5 MG tablet Discontinued 5 mg PO DAILY March 21, 2019 12:00am July 31, 2019 1:18pm aspirin 81 mg delayed release oral tablet (2 sources) Platelet Aggregation Inhibitor, Nonsteroidal Anti-inflammatory Drug Start: 03-01-2025 take 1 tablet by mouth once daily Aspirin (Adult Aspirin Regimen) 81 mg tablet,delayed release (DR/EC) Active 81 mg PO DAILY March 01, 2025 12:00am Start: 05-06-2023 take 1 dose by mouth once michelle y aspirin Dose : 81 mg =, Oral, Daily, 0 Refill(s) Start Date: 05/06/23 Status: Ordered atorvastatin 10 mg oral tablet (1 source) HMG-CoA Reductase Inhibitor Start: 05-06-2023 Lipitor 10 mg oral tablet Dose : 10 mg = 1 tab(s), Oral, qDay, # 30 tab(s), 5 Refill(s), Pharmacy: [id number], 162.6, cm, 05/06/23 6:46:00 EDT, Height Start Date: 05/06/23 Status: Ordered cetirizine hydrochloride 10 mg oral tablet (3 sources) Histamine-1 Receptor Antagonist Start: 08-24-2023 take 1 tablet by mouth once daily as needed Cetirizine (Zyrtec) 10 mg tablet Active 10 mg PO DAILY as needed August 24, 2023 12:00am Start: 05-06-2023 take 1 dose by mouth once michelle y cetirizine Dose : 10 mg =, Oral, qDay, 0 Refill(s) Start Date: 05/06/23 Status: Ordered cloNIDine hydrochloride 0.1 mg oral tablet (2 sources) Central alpha-2 Adrenergic Agonist Start: 02-27-2025 take 1 tablet by mouth twice daily Clonidine Hcl 0.1 mg tablet Active 0.1 mg PO TWICE A DAY 60 February 27, 2025 12:00am clopidogrel 75 mg oral tablet (1 source) [id number] Platelet Inhibitor Start: 03-01-2025 take 1 tablet by mouth once daily Clopidogrel (Plavix) 75 mg tablet Active 75 mg PO DAILY March 01, 2025 12:00am 60 actuat fluticasone propionate 0.25 mg/actuat / salmeterol 0.05 mg/actuat dry powder inhaler (20 sources) Corticosteroid, beta2-Adrenergic Agonist Start: 02-13-2025 Fluticasone Propion-Salmeterol 250-50 mcg/dose blister with device Active INHALATION TWICE A DAY February 13, 2025 12:00am Start: 02-13-2025 Fluticasone Pr opion-Salmeterol (Advair Hfa) 230-21 mcg/actuation HFA aerosol inhaler Active 2 NMA INHALATION TWICE A DAY 1 February 13, 2025 12:00am Start: 11-27-2024 End: 12-04-2024 Fluticasone Propion-Salmeter ol (Advair Hfa) 230-21 mcg/actuation HFA aerosol inhaler Discontinued 2 NMA INHALATION TWICE A DAY 3 November 27, 2024 1:00am December 04, 2024 11:20am Start: 05-01-2024 End: 11-27-2024 Fluticasone Propion-Salmeter ol (Advair Diskus) 250-50 mcg/dose blister with device Discontinued 1 NMA INHALATION TWICE A DAY May 01, 2024 12:49pm November 27, 2024 3:48pm Start: 08-24-2023 End: 05-01-2024 Fluticasone Propion-Salmeter ol (Advair Diskus) 250-50 mcg/dose blister with device Discontinued 1 NMA INHALATION TWICE A DAY 60 August 24, 2023 1:56pm May 01, 2024 12:49pm Start: 06-14-2023 End: 08-24-2023 Fluticasone Propion-Salmeter ol (Advair Diskus) 250-50 mcg/dose blister with device Discontinued 1 NMA INHALATION TWICE A DAY 60 June 14, 2023 8:48am August 24, 2023 1:57pm Start: 05-06-2023 take 1 dose by inhal ation twice daily Advair Diskus 250 mcg-50 mcg inhalation powder Dose = 2 puff(s), Inhalation, BID, 0 Refill(s) Start Date: 05/06/23 Status: Ordered Start: 06-15-2022 End: 06-14-2023 Fluticasone Propion-Salmeter ol (Advair Diskus) 250-50 mcg/dose blister with device Discontinued 1 NMA INHALATION TWICE A DAY 60 June 15, 2022 9:50am June 14, 2023 8:48am Start: 06-15-2022 Fluticasone Pr opion-Salmeterol (Advair Diskus) 250-50 mcg/dose blister with device Active 1 INH INHALATION TWICE A DAY 60 June 15, 2022 9:50am Start: 07-02-2021 End: 06-15-2022 Fluticasone Propion-Salmeter ol (Advair Diskus) 250-50 mcg/dose blister with device Discontinued 1 NMA INHALATION TWICE A DAY 60 July 02, 2021 1:11pm June 15, 2022 9:51am Start: 07-02-2021 End: 06-15-2022 Fluticasone Propion-Salmeter ol (Advair Diskus) 250-50 mcg/dose blister with device Discontinued 1 INH INHALATION TWICE A DAY 60 July 02, 2021 1:11pm June 15, 2022 9:51am Start: 07-02-2021 End: 07-02-2021 Fluticasone Propion-Salmeter ol (Advair Diskus) 250-50 mcg/dose blister with device Discontinued 1 NMA INHALATION TWICE A DAY July 02, 2021 12:00am July 02, 2021 1:11pm Start: 07-02-2021 End: 07-02-2021 Fluticasone Propion-Salmeter ol (Advair Diskus) 250-50 mcg/dose blister with device Discontinued 1 INH INHALATION TWICE A DAY July 02, 2021 12:00am July 02, 2021 1:11pm Start: 06-24-2020 End: 01-21-2021 Fluticasone Propion-Salmeter ol (Advair Diskus) 250-50 mcg/dose blister with device Discontinued 1 NMA INHALATION TWICE A DAY 60 June 24, 2020 12:54pm January 21, 2021 1:27pm Start: 06-24-2020 End: 01-21-2021 Fluticasone Propion-Salmeter ol (Advair Diskus) 250-50 mcg/dose blister with device Discontinued 1 INH INHALATION TWICE A DAY 60 June 24, 2020 12:54pm January 21, 2021 1:27pm Start: 06-22-2019 End: 06-24-2020 Fluticasone Propion-Salmeter ol (Advair Diskus) 250-50 mcg/dose blister with device Discontinued 1 NMA INHALATION TWICE A DAY 60 June 22, 2019 12:00am June 24, 2020 12:54pm Start: 06-22-2019 End: 06-24-2020 Fluticasone Propion-Salmeter ol (Advair Diskus) 250-50 mcg/dose blister with device Discontinued 1 INH INHALATION TWICE A DAY 60 June 22, 2019 12:00am June 24, 2020 12:54pm Start: 04-05-2019 End: 04-05-2019 Fluticasone Propion-Salmeter ol (Advair Diskus) 250-50 mcg/dose blister with device Discontinued 1 NMA INHALATION TWICE A DAY April 05, 2019 12:00am April 05, 2019 8:33am Start: 04-05-2019 End: 06-22-2019 Fluticasone Propion-Salmeter ol (Advair Diskus) 500-50 mcg/dose blister with device Discontinued 1 NMA INHALATION TWICE A DAY 60 April 05, 2019 12:00am June 22, 2019 10:42am Start: 04-05-2019 End: 04-05-2019 Fluticasone Propion-Salmeter ol (Advair Diskus) 250-50 mcg/dose blister with device Discontinued 1 INH INHALATION TWICE A DAY April 05, 2019 12:00am April 05, 2019 8:33am Start: 04-05-2019 End: 06-22-2019 Fluticasone Propion-Salmeter ol (Advair Diskus) 500-50 mcg/dose blister with device Discontinued 1 INH INHALATION TWICE A DAY 60 April 05, 2019 12:00am June 22, 2019 10:42am hydroCHLOROthiazide 25 mg oral tablet (8 sources) Thiazide Diuretic Start: 08-02-2017 take 1 tablet by mouth once daily Hydrochlorothiazide 25 MG tablet Active 25 mg PO DAILY August 02, 2017 12:00am Start: 02-11-2010 take 1 tablet by arlen th once daily HYDROCHLOROTHIAZIDE 25 MG TABS One tablet by mouth daily HYDROCHLOROTHIAZIDE [id number] Yovany Bahena PA-C 24 hr metoprolol succinate 50 mg extended release oral tablet (4 sources) beta-Adrenergic [place] Start: 03-01-2025 take 2 tablets by mouth twice daily Metoprolol Succinate 50 mg tablet extended release 24 hr Active 25 mg PO TWICE A DAY March 01, 2025 10:19am Start: 02-13-2025 End: 03-01-2025 take 1 tablet by mouth once daily in the evening Metoprolol Succinate 50 mg tablet extended release 24 hr Discontinued 50 mg PO EVERY EVENING February 13, 2025 12:00am March 01, 2025 10:21am Start: 05-06-2023 metoprolol suc cinate 25 mg oral TABLET extended release Dose : 25 mg = 1 tab(s), Oral, qDay, Do not crush or chew (controlled release), # 30 tab(s), 0 Refill(s) Start Date: 05/06/23 Status: Ordered Multivitamin preparation (1 source) Start: 05-06-2023 Multivitamin Oral, Daily, Takes 2 gummies, 0 Refill(s) Start Date: 05/06/23 Status: Ordered naproxen 500 mg oral tablet (5 sources) Nonsteroidal Anti-inflammatory Drug Start: 07-25-2020 End: 08-24-2023 take 1 tablet by mouth twice daily as needed Naproxen 500 mg tablet Active 500 mg PO TWICE A DAY as needed August 24, 2023 1:37pm levothyroxine sodium 0.15 mg oral tablet (12 sources) l-Thyroxine Start: 02-14-2024 take 1 tablet by mouth once daily Levothyroxine (Synthroid) 150 mcg tablet Active 150 ug PO daily February 14, 2024 12:00am Start: 05-06-2023 Synthroid Dose : 175 mcg =, Oral, Wed//Wed//Wed/Wed, Takes Wednesday-Wednesday, 0 Refill(s) Start Date: 05/06/23 Status: Ordered Start: 08-02-2017 End: 02-14-2024 Levothyroxine 175 MCG tablet Discontinued 175 meq PO DAILY August 02, 2017 12:00am February 14, 2024 2:19pm Start: 08-02-2017 take 175 mEq by mout h once daily Levothyroxine Active 175 MEQ PO DAILY August 02, 2017 12:00am Start: 04-08-2016 take 1 tablet by arlen th once daily SYNTHROID 125 MCG TABS 1 tablet by mouth once daily LEVOTHYROXINE SODIUM [id number] Yovany Bahena PA-C Start: 04-08-2016 take 1 tablet by arlen th once daily SYNTHROID 125 MCG TABS 1 tablet by mouth once daily LEVOTHYROXINE SODIUM [id number] Yovany Bahena PA-C Start: 02-11-2010 End: 04-08-2016 take 1 tablet by mouth once daily LEVOXYL 112 MCG TABS 1 tab by mouth michelle rossi LEVOTHYROXINE SODIUM [id number] Yovany Bahena PA-C Start: 02-11-2010 take 1 tablet by arlen th once daily LEVOXYL 112 MCG TABS 1 tab by mouth michelle rossi LEVOTHYROXINE SODIUM [id number] Sandie BRUNNER Start: 02-11-2010 End: 04-08-2016 take 1 tablet by mouth once daily LEVOXYL 112 MCG TABS 1 tab by mouth michelle rossi LEVOTHYROXINE SODIUM [id number] Yovany Bahena PA-C Start: 02-11-2010 take 1 tablet by arlen th once daily LEVOXYL 112 MCG TABS 1 tab by mouth michelle y LEVOTHYROXINE SODIUM [id number] Sandie BRUNNER vitamin B12 (1 source) Vitamin B12 Start: 05-06-2023 Vitamin B12 Or al, qDay, Takes 2 gummies, 0 Refill(s) Start Date: 05/06/23 Status: Ordered Completed/Discontinued Medications Medication Drug Class(es) Dates Sig (Normalized) Sig (Original) acetaminophen 325 mg / HYDROcodone bitartrate 5 mg oral tablet (6 sources) Opioid Agonist Start: 07-27-2020 End: 08-03-2020 Hydrocodone-Acetami nophen 1 EACH tablet Discontinued 1 NMA PO EVERY 4 HOURS NEEDED as needed for Pain Score 1-10/10 14 7 July 27, 2020 August 02, 2020 12:00am August 03, 2020 12:03am Start: 07-27-2020 End: 08-03-2020 Hydrocodone-Acetaminophen Di scontinued 1 EACH PO EVERY 4 HOURS NEEDED 14 7 July 27, 2020 August 03, 2020 12:03am Start: 07-25-2020 End: 07-28-2020 Hydrocodone-Acetaminophen 1 EACH tablet Discontinued 1 NMA PO EVERY 8 HOURS NEEDED as needed for Pain Score 6-10/10 12 3 July 25, 2020 July 27, 2020 12:00am July 28, 2020 12:02am Start: 07-25-2020 End: 07-28-2020 Hydrocodone-Acetaminophen Di scontinued 1 EACH PO EVERY 8 HOURS NEEDED 12 3 July 25, 2020 July 28, 2020 12:02am [id number] 200 actuat albuterol 0.09 mg/actuat metered dose inhaler (16 sources) beta2-Adrenergic Agonist Start: 07-03-2020 End: 08-24-2023 Albuterol Sulfate 90 mcg/actuation HFA aerosol inhaler Discontinued 1 - 2 NMA INHALATION EVERY 4 HOURS NEEDED as needed for Sob &/Or Wheezing November 28, 2021 2:46pm August 24, 2023 1:38pm Start: 07-03-2020 End: 11-28-2021 Albuterol Sulfate Active 1 - 2 INH INHALATION EVERY 4 HOURS NEEDED November 28, 2021 2:46pm Start: 03-13-2019 End: 07-03-2020 Albuterol Sulfate 18 GM HFA aerosol inhaler Discontinued 1 - 2 NMA INHALATION EVERY 4 HOURS NEEDED as needed for Sob &/Or Wheezing March 13, 2019 12:00am July 03, 2020 6:32am Start: 03-03-2011 End: 03-08-2011 VENTOLIN HFA 108 (90 Base) M CG/ACT AERS 2 puffs every 4 hours as needed ALBUTEROL SULFATE [id number] eDvi Anguiano PA-C Start: 03-03-2011 End: 03-08-2011 VENTOLIN HFA 108 (90 Base) M CG/ACT AERS 2 puffs every 4 hours as needed ALBUTEROL SULFATE [id number] Devi Anguiano PA-C amoxicillin 500 mg oral capsule (2 sources) Penicillin-class Antibacterial Start: 02-11-2010 End: 02-21-2010 take 1 capsule by mouth three times daily AMOXICILLIN 500 MG CAPS Take 1 capsule by mouth three times a day X 10 days AMOXICILLIN [id number] Sandie BRUNNER benzonatate 100 mg oral capsule (2 sources) Non-narcotic Antitussive Start: 07-27-2017 End: 08-06-2017 BENZONATATE 100 MG CAPS Take 1 tablet every 8 hours as necessary for cough BENZONATATE [id number] Steven BRUNNER Budesonide-Formot jens (10 sources) Corticosteroid, beta2-Adrenergic Agonist Start: 12-06-2024 End: 02-13-2025 Budesonide-Formot jens (Breyna) 160-4.5 mcg/actuation HFA aerosol inhaler Discontinued 2 NMA INHALATION TWICE A DAY 3 December 06, 2024 10:42am February 13, 2025 2:38pm Start: 12-04-2024 End: 12-06-2024 Budesonide-Formoterol (Breyn a) 160-4.5 mcg/actuation HFA aerosol inhaler Discontinued 2 NMA INHALATION TWICE A DAY 3 December 04, 2024 1:00am December 06, 2024 10:43am Start: 01-21-2021 End: 07-02-2021 Budesonide-Formoterol 80-4.5 mcg/actuation HFA aerosol inhaler Discontinued 2 NMA INHALATION TWICE A DAY 10.2 January 21, 2021 12:00am July 02, 2021 12:43pm Start: 01-21-2021 End: 07-02-2021 take 1 puff(s) by inhalation twice daily Budesonide-Formoterol Discontinued 2 PUFF INHALATION TWICE A DAY 10.2 January 21, 2021 12:00am July 02, 2021 12:43pm Start: 03-21-2019 End: 04-05-2019 Budesonide-Formoterol 1 INHA LER inhaler Discontinued 2 NMA INHALATION TWICE A DAY 1 March 21, 2019 12:00am April 05, 2019 8:16am Start: 03-21-2019 End: 04-05-2019 take 1 puff(s) by inhalation twice daily Budesonide-Formoterol Discontinued 2 PUFF INHALATION TWICE A DAY 1 March 21, 2019 12:00am April 05, 2019 8:16am cephalexin 500 mg oral capsule (3 sources) Cephalosporin Antibacterial Start: 07-27-2020 End: 01-21-2021 take 1 capsule by mouth every eight hours Cephalexin 500 MG capsule Discontinued 500 mg PO EVERY 8 HOURS 9 July 27, 2020 12:00am January 21, 2021 1:11pm ciprofloxacin 500 mg oral tablet (2 sources) Quinolone Antimicrobial Start: 03-03-2011 End: 03-10-2011 CIPRO 500 MG TABS Take 1 tablet by mouth morning and night X 7 days CIPROFLOXACIN HCL [id number] Devi Anguiano PA-C diphenhydrAMINE hydrochloride 25 mg oral strip (2 sources) Histamine-1 Receptor Antagonist Start: 04-08-2016 take 2 tablets by mouth twice daily BENADRYL 25 MG TABS 2 tablets by mouth twice daily DIPHENHYDRAMINE HCL [id number] Yovany Bahena PA-C FLUTICASONE PROPIONATE (2 sources) Corticosteroid Start: 02-11-2010 End: 02-21-2010 take 2 spray(s) nasal route once daily FLONASE 50 MCG/ACT SUSP 2 sprays each nostril once a day FLUTICASONE PROPIONATE [id number] Sandie BRUNNER Start: 02-11-2010 End: 02-21-2010 take 2 spray(s) nasal route once daily FLONASE 50 MCG/ACT SUSP 2 sprays each nostril once a day FLUTICASONE PROPIONATE [id number] Sandie BRUNNER lisinopril 40 mg oral tablet (6 sources) Angiotensin Converting Enzyme Inhibitor Start: 04-08-2016 take 1 tablet by mouth once daily LISINOPRIL 40 MG TABS 1 tablet by mouth once daily LISINOPRIL [id number] Yovany Bahena PA-C Start: 02-11-2010 End: 04-08-2016 take 1 tablet by mouth twice daily LISINOPRIL 40 MG TABS One tablet by mouth twice a day LISINOPRIL [id number] Sandie BRUNNER metoclopramide 10 mg oral tablet (3 sources) Dopamine-2 Receptor Antagonist Start: 08-03-2020 End: 08-24-2023 take 1 tablet by mouth every six hours as needed for nausea Metoclopramide Hcl 10 MG tablet Discontinued 10 mg PO EVERY 6 HOURS as needed for Nausea/Vomiting August 03, 2020 12:00am August 24, 2023 1:38pm montelukast 10 mg oral tablet (20 sources) Leukotriene Receptor Antagonist Start: 03-21-2019 End: 02-13-2025 take 1 tablet by mouth once daily Montelukast 10 mg tablet Discontinued 10 mg PO DAILY@1700 30 October 10, 2024 3:29pm February 13, 2025 2:18pm ondansetron 4 mg disintegrating oral tablet (3 sources) Serotonin-3 Receptor Antagonist Start: 07-25-2020 End: 07-28-2020 take 1 tablet by mouth every eight hours as needed for nausea Ondansetron 4 MG tablet Discontinued 4 mg PO EVERY 8 HOURS NEEDED as needed for Nausea/Vomiting 08 03July 25, 2020 12:00am July 27, 2020 12:00am July 28, 2020 12:02am predniSONE 10 mg oral tablet (3 sources) Start: 03-13-2019 End: 03-21-2019 take 4 tablets by mouth once daily Prednisone 10 MG tablet Discontinued 40 mg PO DAILY March 13, 2019 12:00am March 21, 2019 9:45am Start: 03-13-2019 End: 03-21-2019 take 40 mg by mouth once daily Prednisone Discontinued 40 MG PO DAILY March 13, 2019 12:00am March 21, 2019 9:45am simvastatin 40 mg oral tablet (4 sources) HMG-CoA Reductase Inhibitor Start: 02-11-2010 End: 04-08-2016 take 1 tablet by mouth once daily SIMVASTATIN 40 MG TABS One tablet by mouth daily SIMVASTATIN [id number] Yovany Bahena PA-C TRIAMCINOLONE ACETONIDE (2 sources) Corticosteroid Start: 07-27-2017 NASACORT ALLERGY 24HR 55 MCG/ACT AERO TRIAMCINOLONE ACETONIDE [id number] Steven BRUNNER Start: 07-27-2017 NASACORT ALLER GY 24HR 55 MCG/ACT AERO TRIAMCINOLONE ACETONIDE [id number] Steven BRUNNER Problems Active Problems Problem Classification Problem Date Documented Date Episodic/Chronic Abdominal pain (3 sources) Flank pain; Translations: [Unspecified abdominal pain] 07-26-2020 Episodic Acute and unspecified renal failure (3 sources) Injury of kidney; Translations: [Acute kidney failure, unspecified] 07-26-2020 Episodic Asthma (3 sources) Asthma; Translations: [Unspecified asthma, uncomplicated] 03-29-2019 Chronic Calculus of urinary tract (6 sources) Kidney stone; Translations: [Calculus of kidney] 08-03-2020 Episodic Chronic obstructive pulmonary disease and bronchiectasis (11 sources) Asthma-chronic obstructive pulmonary disease overlap syndrome; Translations: [Chronic obstructive pulmonary disease, unspecified] 04-05-2019 Chronic Comment on above: FEV1 63% of predicte d quit smoking 2001 Chronic obstructive pulmonary disease and bronchiectasis (3 sources) Bronchitis; Translations: [Bronchitis, not specified as acute or chronic] 07-25-2020 Episodic Disorders of lipid metabolism (1 source) Hyperlipidemia, unspecified; Translations: [Hyperlipidemia, unspecified] Onset: 01-01-2025 Chronic Essential hypertension (9 sources) Hypertensive disorder; Translations: [Essential (primary) hypertension] Onset: 04-08-2016 04-08-2016 Chronic Hypertension with complications and secondary hypertension (2 sources) Hypertensive urgency ; Translations: [Hypertensive urgency] 02-27-2025 Chronic Nausea and vomiting (6 sources) Postoperative vomiting; Translations: [Vomiting, unspecified] 08-04-2020 Episodic Nonspecific chest pain (3 sources) Chest pain; Translations: [Chest pain, unspecified] 03-29-2019 Episodic Occlusion or stenosis of precerebral arteries (5 sources) Occlusion and stenosis of bilateral carotid arteries; Translations: [Bilateral stenosis of carotid arteries] Onset: 02-28-2025 03-05-2025 Chronic Comment on above: CTA images reviewed, right 81%, left 80%, mild calcifications, low bifurcation Other aftercare (1 source) 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; Translations: [Other nursing home (current) drug therapy] Onset: 01-01-2025 Episodic Other circulatory disease (2 sources) Other specified symptoms and signs involving the circulatory and respiratory systems; Translations: [Other specified symptoms and signs involving the circulatory and respiratory systems] Onset: 02-28-2025 Episodic Other eye disorders (3 sources) Retraction of eyelid; Translations: [Eyelid retraction unspecified eye, unspecified lid] 07-25-2020 Episodic Other lower respiratory disease (5 sources) Cough; Translations: [Cough] Onset: 07-27-2017 07-27-2017 Episodic Other lower respiratory disease (3 sources) Dyspnea; Translations: [Shortness of breath] 03-29-2019 Episodic Other lower respiratory disease (1 source) Shortness of breath; Translations: [Shortness of breath] Onset: 02-26-2025 Episodic Other nutritional; endocrine; and metabolic disorders (4 sources) Obesity; Translations: [Obesity, unspecified] 02-13-2025 Chronic Pneumonia (except that caused by tuberculosis or sexually transmitted disease) (3 sources) Pneumonia; Translations: [Pneumonia, unspecified organism] 07-25-2020 Episodic Thyroid disorders (7 sources) Hyperthyroidism; Translations: [Hypothyroidism] Onset: 04-08-2016 Resolved: 04-08-2016 04-08-2016 Chronic Past or Other Problems Problem Classification Problem Date Documented Da te Episodic/Chronic Acute bronchitis (2 sources) Acute bronchitis; Translations: [Acute bronchitis, unspecified] Onset: 03-03-2011 Resolved: 04-02-2011 03-03-2011 Episodic Other upper respiratory infections (4 sources) Upper respiratory infection; Translations: [Frontal sinusitis] Onset: 02-11-2010 07-27-2017 Episodic Unclassified (2 sources) Family history of alcoholism; Translations: [Family history of alcohol abuse and dependence] 04-08-2016 Episodic Results Test Name Value Interpretation Reference Range Facility MR/Jesus 03-22-2025 MR/REKHA [facility] Medical Records Department [address] [place] [address] PAT - Anesthesia 03/22/25 1317 MR#: [id number] Acct: [id number] Name: NOBLE WILDE Rep #: [id number] : 1950 74 From: Matt Ibarra MD PCP: Yovany Bahena PA-C Status:PRE IN Y Race: C Location: [facility] Pre-Assessment Diagnosis/Proposed Procedure Planned Operative Procedure(s): LEFT CAROTID ENARTECTOMY Anesthesia History 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 When Was Last Pacemaker Check QUESTION #4 FULL TEXT: You/Your Family Experience fever (hyperthermia) with Anesthesia Last Oral Intake Last Oral intake: Last Oral Intake NPO since Meds taken in AM with sips of water? Meds patient instructed to take am of surgery PONV PONV - vehicle washer: PONV - vehicle washer Female Yes 03/20/25 15:02 HX of Motion Sickness Yes 03/20/25 15:02 HX of N/V After Surgery Yes 03/20/25 15:02 Non-Smoker Yes 03/20/25 15:02 Duration of Surgery greater No 03/20/25 15:02 than 60 minutes Number of Risk Factors 4 03/20/25 15:02 PONV Score Severe Risk 03/20/25 15:02 Height Weight Height Weight: Anesthesia: Height Weight Height 5 ft 4 in 03/01/25 11:31 Respiratory Assessment Respiratory Assessment - vehicle washer: Respiratory Tract Infection Hx - vehicle washer Hx Respiratory Tract Infection No 03/20/25 15:02 STOP Sleep Apnea STOP Sleep Apnea - vehicle washer: STOP Sleep Apnea - vehicle washer Hx Hypertension Yes 03/20/25 15:02 Hx Sleep Apnea No 03/20/25 15:02 CPAP BIPAP Do you snore loudly (louder No 03/20/25 15:02 than talking or can be heard Do you often feel tired/ No 03/20/25 15:02 fatigued/ sleepy during daytime? Has anyone observed you stop No 03/20/25 15:02 breathing during sleep? STOP Results Negative 03/20/25 15:02 QUESTION #5 FULL TEXT : Do you snore loudly (louder than talking or can be heard through closed doors)? Tobacco Use History Tobacco Use History - vehicle washer: Tobacco Use History - vehicle washer Tobacco Use Smoking Status Former smoker 03/20/25 15:02 Hx Tobacco Use No 03/20/25 15:02 Years Smoking Packs Smoked per Day Smoking Cessation Date was Yes - quit smoking within 15 03/20/25 15:02 within the last 15 years years Hx Smoking Cessation Date Hx Smoking Cessation No 03/20/25 15:02 Counseling Hematologic Medial History Hematologic Hx - vehicle washer: Hematologic Medical Hx - plywood patcher Hx of Blood Transfusion No 03/20/25 15:02 Hx of Transfusion in last 3 No 03/20/25 15:02 Months Date of Last Transfusion (if within last 3 months) Ever experience any problems No 03/20/25 15:02 with transfusion(s)? Specify any problems Hx of Preganancy in last 3 No 03/20/25 15:02 Months Nurse Filling Out Transfusion VLEHMAN 03/20/25 15:02 Questions: Date: 03/20/25 03/20/25 15:02 Time: 15:13 03/20/25 15:02 Patient unable to answer at this time (ie. confused, unrespo /Reproduction History /Reproductive History - vehicle washer: /Reproductive Hx- vehicle washer Hx Now No 03/20/25 15:02 Gestational Age (in weeks): EDC: Hx Hx Para Hx Section SAB No 03/20/25 15:02 PFSH Medical History (Updated 03/20/25 @ 15:11 by Ivis Chinchilla) Wears glasses Post-menopausal Anxiety Thyroid disease Arthritis History of renal disease High cholesterol Easy bruising Gastric reflux History of hiatal hernia Graves disease Former smoker Cardiology follow-up encounter History of echocardiogram History of stress test Hiatal hernia Pneumonia COPD (chronic obstructive pulmonary disease) Bronchitis Chest pain, unspecified Asthma HTN (hypertension) Cough Shortness of breath Home Medications ???Medication ???Instructions ???Recorded ???Last Taken ???Type hydrochlorothiazide 25 mg tablet 25 mg PO DAILY BP 08/02/1707/26/ 0 History ipratropium 0.5 mg-albuterol 3 mg 3 ml inhalation Q4H PRN PRN Sob 0 03/13/19 03/19/19 History (2.5 mg base)/3 mL nebulization /Or Wheezing soln albuterol sulfate 90 mcg/actuation 2 puff inhalation Q4H PRN Un (more content not included)... Normal [facility] 12 Lead EKGon 03-21-2025 12 Lead EKG [facility] Cardiovascular Services [address] [place] [address] 12 Lead EKG 03/21/25 1204 MR#: [id number] Acct: [id number] Name: NOBLE WILDE Rep #: [id number] : 1950 74 From: Pepe Sanchez MD Attending Dr: Dr. Papo Sumner MD Status: PRE I N Ordering Dr: Matt Ibarra MD Date: 03/21/25 Location: [facility] Sex: F C Admitted: Test Reason : PREOP Blood Pressure : */* mmHG Vent. Rate : 66 BPM Atrial Rate : 66 BPM P-R Int : 176 ms QRS Dur : 98 ms QT Int : 406 ms P-R-T Axes : 33 51 62 degrees QTcB Int : 425 ms Normal sinus rhythm Normal ECG Confirmed by PEPE SANCHEZ MD ([id number]), therapy aide VEGA TOLBERT ([id number]) on 03/21/2025 1:01:45 PM Referred By: Papo Sumner Confirmed By: PEPE SANCHEZ MD 03/21/25 1301 Date Pepe Sanchez MD CC: LORNA Bahena; Dr. Matt Ibarra MD; Dr. Papo Sumner MD Signed Normal [facility] Basic Metabolic Profile (BMP )on 03-21-2025 BUN/CRE 28.5 RATIO High 10-20 [facility] Comment on above: Performed By: #### L 100.0100, L500.2500 #### [facility] Laboratory [address] [place], [address] Calcium [Mass/Vol] 10.2 mg/dL Normal 7.6-11.0 [facility] Comment on above: Performed By: #### L 100.0100, L500.2500 #### [facility] [address] [place], [address] Chloride [Moles/Vol] 104 mmol/L Normal 98-108 [facility] Comment on above: Performed By: #### L 100.0100, L500.2500 #### [facility] [address] [place], [address] CO2 [Moles/Vol] 26.9 mmol/L Normal 21.0-32.0 [facility] Comment on above: Performed By: #### L 100.0100, L500.2500 #### [facility] [address] [place], [address] Creatinine [Mass/Vol] 0.83 mg/dL Normal 0.70-1.20 [facility] Comment on above: Performed By: #### L 100.0100, L500.2500 #### [facility] [address] [place], [address] GAP 11 Normal 5-15 [facility] Comment on above: Performed By: #### L 100.0100, L500.2500 #### [facility] [address] [place], [address] GFR/1.73 sq M.predicted among non-blacks MDRD (S/P/Bld) [Vol rate/Area] 75 mL/min/{1.73_m2} Normal >60 [facility] Comment on above: Result Comment: mL/m in/1.73m2 CKD-EPI Creatinine Equation (2020) Performed By: #### L 100.0100, L500.2500 #### [facility] [address] [place], [address] Glucose [Mass/Vol] 99 mg/dL Normal 70-99 [facility] Comment on above: Performed By: #### L 100.0100, L500.2500 #### [facility] [address] [place], [address] Potassium [Moles/Vol] 3.8 mmol/L Normal 3.3-5.1 [facility] Comment on above: Performed By: #### L 100.0100, L500.2500 #### [facility] [address] [place], [address] Sodium [Moles/Vol] 142 mmol/L Normal 133-145 [facility] Comment on above: Performed By: #### L 100.0100, L500.2500 #### [facility] [address] [place], [address] Urea nitrogen [Mass/Vol] 24 mg/dL High 4-19 [facility] Comment on above: Performed By: #### L 100.0100, L500.2500 #### [facility] [address] [place], [address] CBC W/Diff, Automatedon 05-2 Absolute Lymph 1.60 X10 3/uL Normal 0.83-4.51 [facility] Comment on above: Performed By: #### L 100.0100, L500.2500 #### [facility] [address] [place], [address] Absolute Neut 6.9 X10 3/uL Normal 2.0-7.7 [facility] Comment on above: Performed By: #### L 100.0100, L500.2500 #### [facility] [address] [place], [address] Basophils/100 WBC (Bld) 0.5 % Normal 0-1 [facility] Comment on above: Performed By: #### L 100.0100, L500.2500 #### [facility] [address] [place], [address] Eosinophils/100 WBC (Bld) 1.2 % Normal 0-5 [facility] Comment on above: Performed By: #### L 100.0100, L500.2500 #### [facility] [address] [place], [address] Erythrocyte distribution width (RBC) [Ratio] 15.4 % High 11.6-14.6 [facility] Comment on above: Performed By: #### L 100.0100, L500.2500 #### [facility] [address] [place], [address] Hematocrit (Bld) [Volume fraction] 44.7 % Normal 37-47 [facility] Comment on above: Performed By: #### L 100.0100, L500.2500 #### [facility] [address] [place], [address] Hemoglobin (Bld) [Mass/Vol] 14.7 g/dL Normal 12.0-15.0 [facility] Comment on above: Performed By: #### L 100.0100, L500.2500 #### [facility] [address] [place], [address] IG% 0.400 Normal 0.0-0.9 [facility] Comment on above: Result Comment: IG% - Immature Granulocytes (promyelocytes, myelocytes and metamyelocytes) > 1% indicates that a LEFT SHIFT is Present. Performed By: #### L 100.0100, L500.2500 #### [facility] [address] [place], [address] Lymphocytes/100 WBC (Bld) 17.4 % Low 19-41 [facility] Comment on above: Performed By: #### L 100.0100, L500.2500 #### [facility] [address] [place], [address] MCH (RBC) [Entitic mass] 30.4 pg Normal 27.0-32.0 [facility] Comment on above: Performed By: #### L 100.0100, L500.2500 #### [facility] [address] [place], [address] MCHC (RBC) [Mass/Vol] 32.9 g/dL Normal 32-36 [facility] Comment on above: Performed By: #### L 100.0100, L500.2500 #### [facility] Laboratory [facility] [place], [address] MCV (RBC) [Entitic vol] 92.4 fL Normal 81-99 [facility] Comment on above: Performed By: #### L 100.0100, L500.2500 #### [facility] [address] [place], [address] Monocytes/100 WBC (Bld) 5.5 % Normal 0-10 [facility] Comment on above: Performed By: #### L 100.0100, L500.2500 #### [facility] [address] [place], [address] Neutrophils/100 WBC (Bld) 75.0 % High 47-70 [facility] Comment on above: Performed By: #### L 100.0100, L500.2500 #### [facility] [address] [place], [address] Nucleated RBC (Bld) [#/Vol] 0 10*3/uL Normal 0-5 [facility] Comment on above: Performed By: #### L 100.0100, L500.2500 #### [facility] [address] [place], [address] Platelet mean volume (Bld) [Entitic vol] 10.6 fL Normal 6.2-12.0 [facility] Comment on above: Performed By: #### L 100.0100, L500.2500 #### [facility] [address] [place], [address] Platelets (Bld) [#/Vol] 358 10*3/uL Normal 150-450 [facility] Comment on above: Performed By: #### L 100.0100, L500.2500 #### [facility] [address] [place], [address] RBC (Bld) [#/Vol] 4.84 10*6/uL Normal 4.2-5.4 [facility] Comment on above: Performed By: #### L 100.0100, L500.2500 #### [facility] [address] [place], [address] RDW SD 52.4 fl High 35.1-43.9 [facility] Comment on above: Performed By: #### L 100.0100, L500.2500 #### [facility] [address] [place], [address] WBC (Bld) [#/Vol] 9.2 10*3/uL Normal 4.4-11.0 [facility] Comment on above: Performed By: #### L 100.0100, L500.2500 #### [facility] [address] [place], [address] Thyroid Stim Hormone (TSH)on 03-21-2025 TSH 0.576 uIU/mL Normal 0.300-4.200 [facility] Comment on above: Performed By: #### L 501.9571 #### [facility] [address] [place], [place], [address] MR/BMSGilberto 03-05-2025 [facility] [address] [place] [address] OFFICE VISIT Date of Service: 03/05/25 MR#: [id number] Acct: [id number] Name: NOBLE WILDE Rep #: [id number] : 1950 Provider: Dr. Papo Sumner MD Age/Sex: 74/F Location: [facility] Status: Signed Intake Vital Signs 02/27/25 17:54 03/01/25 11:31 03/05/25 12:36 Height 5 ft 4 in 5 ft 4 in Weight: 179 lb BP 170/98 H Blood Pressure Location Rt brachial Position Sitting Respiration 16 Pulse 77 Pulse Source Monitor Temp 98.6 F Temp Source Temporal Pulse Oximetry (%) 97 Oxygen Delivery Method room air Oxygen Flow Rate (L/min) 97 Intake Visit Reasons: Discuss CTA Is patient in pain?: No Allergies Iodinated Contrast Media Adverse Reaction (Intermediate, Verified 03/05/25 12:46) Rash acetaminophen (From [place]) Adverse Reaction (Verified 03/01/25 10:19) Constipation hydrocodone (From [place]) Adverse Reaction (Verified 03/01/25 10:19) Constipation levofloxacin (From [place]quin) Adverse Reaction (Verified 03/01/25 10:19) GI upset losartan Adverse Reaction (Verified 03/01/25 10:19) Abd cramps/diarrhea prednisone Adverse Reaction (Verified 03/01/25 10:19) Other Medications ???Medication ???Instructions ???Recorded ???Confirmed ???Type hydrochlorothiazide 25 mg tablet 25 mg PO DAILY BP 08/02/17 5 History ipratropium 0.5 mg-albuterol 3 mg 3 ml inhalation Q4H PRN PRN Sob 0 03/13/19 03/05/25 History (2.5 mg base)/3 mL nebulization /Or Wheezing soln albuterol sulfate 90 mcg/actuation 2 puff inhalation Q4H PRN 03/05/25 Rx aerosol inhaler (Ventolin HFA) shortness of breath or wheezing #8.5 grams amlodipine 5 mg tablet mg PO 08/24/23 03/05/25 History cetirizine 10 mg tablet (Zyrtec) 10 mg PO DAILY PRN 08/24/23 History naproxen 500 mg tablet 500 mg PO BID PRN 08/24/23 5 History levothyroxine 150 mcg tablet 150 mcg PO QDAY 02/14/24 03/05/25 History (Synthroid) fluticasone 250 mcg-salmeterol 50 inhalation BID 02/13/25 03/05/25 History mcg/dose blistr powdr for inhalation fluticasone propionate 230 2 inh inhalation BID #1 ea 5 03/05/25 Rx mcg-salmeterol 21 mcg/actuation HFA inhaler (Advair HFA) clonidine HCl 0.1 mg tablet 0.1 mg PO BID #60 tabs 02/27/25 Rx aspirin 81 mg tablet,delayed 81 mg PO DAILY #360 tabs 03/01/25 03/05/25 Rx release (Adult Aspirin Regimen) clopidogrel 75 mg tablet (Plavix) 75 mg PO DAILY #30 tabs 03/01/25 03/05/25 Rx metoprolol succinate 50 mg 25 mg PO BID 03/01/25 03/05/25 His tory tablet,extended release 24 hr Is last menstrual period known: No Post menopausal: Yes Patient : No Have you fallen in the past year?: No PFSH Medical History (Updated 03/05/25 @ 14:[address] Papo Sumner MD) Pneumonia COPD (chronic obstructive pulmonary disease) Bronchitis Chest pain, unspecified Asthma HTN (hypertension) Cough Shortness of breath Surgical History Eyelid retraction unspecified eye, unspecified lid History of D C Family History Father Heart disease Asthma Mother CAD (coronary artery disease) Sister PAD (peripheral artery disease) Cancer Lung Diabetes Grandfather Diabetes Leukemia Social History household members: spouse housing: house pets and animals: Yes pets and animals: dog(s) Smoking Status: Former smoker Tobacco: How many years used: 30 how long ago did patient quit smokin, 1ppd second hand exposure: Yes alcohol intake: never substance use type: does not use HPI HPI HPI: NOBLE WILDE, is a 74 F who presents to the office today for follow up of bilateral carotid stenosis found after bruit heard on annual exam. Duplex at outside facility revealed >70% stenosis bilateral. She has had a CTA and is here to discuss options. She is now on ASA and plavix, intolerant of statins in the past. Denies numbness/weakness/visi on loss/speech difficulty. ROS General General: Yes appetite; No weight change, fatigue, colon cancer, breast cancer or weakness HEENT HEENT: No difficulty swallowing, eye injury, eye surgery, swollen glands or hoarseness Endo Endocrine: Yes thyroid disease; No diabetes mellitus, thyroid cancer, Hair loss, heat intolerance or cold intolerance Skin Skin: Yes rash; No changing moles Musc Musculoskeletal: Yes back problems and arthritis; No rheumatoid arthritis, gout or joint pain Cardio Cardiovascular: Yes high blood pressure; No murmur, pacemaker, heart disease, atrial fibrillation, heart attack, heart stent, palpitations, (more content not included)... Normal [facility] CTA Head AND Neck W/ Contras ton 03-02-2025 CTA Head AND Neck W/ Contrast [facility] Imaging Services [address] [place], [place] [id number] CTA Head AND Neck W/ Contrast MR#: [id number] Acct: [id number] Name: NOBLE WILDE Rep #: [id number] : 1950 F 74 From: Wiley Yip MD PCP: Yovany Bahena PA-C Status: REG CLI Study: CTA Head AND Neck W/ Contrast Date of Exam: Exam# [id number] Ordering Dr: Zeinab Carrillo PROCEDURE: CT HEAD WITHOUT CONTRAST AND CTA HEAD AND NECK W/ CONTRAST, 03/02/2025 REASON FOR EXAM: SEVERE BILATERAL CAROTID STENOSIS >70% TECHNIQUE: CT head was performed without IV contrast. Subsequently, CTA head and neck was performed with IV contrast. Multiplanar reformats as well as MIP and 3D reconstructions were generated. CONTRAST: Isovue 370 VOLUME: 100mL RADIATION DOSE SUMMARY: CTDlvol: 44.99+ 16.61+ 18.17 mGy DLP: 1448.74 mGycm One or more dose reduction techniques were used (e.g., Automated exposure control, adjustment of the mA and/or kV according to patient size, use of iterative reconstruction technique). COMPARISON: None. FINDINGS: Note the exam is optimized for evaluation of the head and major cervical/intracranial arterial vasculature rather than the remaining soft tissues. CT HEAD: Cerebrum: No visible acute hemorrhage, definite acute territorial infarct, or visible mass. Minimal cerebral volume loss. Cerebellum/brainstem: Unremarkable. Note slight limitation due to beam hardening artifact. Ventricles/extra-axial spaces: Age-appropriate appearance. Visualized paranasal sinuses/mastoid air cells: Unremarkable. Scalp/calvarium: Unremarkable. Other: Unremarkable. CTA NECK: Aortic Arch: Nonobstructing atherosclerosis.. Brachiocephalic and subclavians: 70% stenosis along the distal LEFT subclavian, distal to the LEFT vertebral artery origin. Less than 20 % stenosis at the origin of the LEFT subclavian. RIGHT Carotid: Right CCA: Mild 20% stenosis at the origin. Right ICA: 80% stenosis just beyond the origin of the RIGHT. Nonobstructing atherosclerosis in the bulb. Retropharyngeal course. Right ECA: 30% stenosis of the origin. LEFT Carotid: Left CCA: Patent. Left ICA: 80% stenosis in the LEFT carotid bulb and ICA origin. Left ECA: Less than 20% stenosis at the origin. Vertebrals: Slight LEFT dominance. Arise from the subclavians. Both vertebrals form the basilar. RIGHT Vertebral: Patent. LEFT Vertebral: 50% stenosis at the origin. CTA HEAD: Slight limitation related to venous contamination. Anterior circulation: Patent. Posterior circulation: Patent. origin of the RIGHT RELATIONSHIP SPECIALIST. RIGHT PICA and LEFT AICA are visualized. Venous structures: Grossly unremarkable within limits of nondedicated technique. Other: Mild cervical spondylosis. Demineralization. Reversal of the normal cervical lordosis may be positional, degenerative, or related to pain/muscular spasm.. Mild cervicothoracic levoscoliosis may be positional. Emphysema. Biapical pleural/parenchymal scarring. Atrophic or absent thyroid. Complete effacement of the LEFT piriform sinus. CT/CTA Head AND Neck W/ Contrast IMPRESSION: 1. Severe 80% stenoses just beyond the origin of the RIGHT ICA and involving the LEFT carotid bulb and ICA origin. Severe 70% stenosis along the distal LEFT subclavian. Additional less severe stenoses as detailed. 2. Complete effacement of the LEFT piriform sinus without measurable mass. This could reflect asymmetric atrophy related to dysfunction of the RIGHT recurrent laryngeal nerve or an occult laryngeal lesion on the LEFT. Recommend direct visualization and consider CT neck/chest with contrast as indicated. 3. No visible acute noncontrast intracranial findings. 4. Additional description as above. Reading Location: [id number] CC: LORNA Bahena; KANNAN Bermudez Torch Burner: Signed Normal [facility] MR/BMS.BVSon 03-01-2025 MR/BMS.BVS [facility] Vascular Surgery [address] [facility] [place] [address] OFFICE VISIT Date of Service: 03/01/25 MR#: [id number] Acct: [id number] Name: NOBLE WILDE Rep #: [id number] : 1950 Provider: KANNAN Bermudez Age/Sex: 74/F Location: [facility] Status: Signed Intake Vital Signs 02/27/25 17:54 03/01/25 10:13 Height 5 ft 4 in Weight: 179 lb BP 175/72 H Blood Pressure Location Lt brachial Position Sitting Respiration 16 Pulse 74 Pulse Source Monitor Temp 98.0 F Temp Source Temporal Pulse Oximetry (%) 98 Oxygen Delivery Method room air Intake Visit Reasons: B/L Carotid Bruit Is patient in pain?: Yes Allergies acetaminophen (From [place]) Adverse Reaction (Verified 03/01/25 10:19) Constipation hydrocodone (From [place]) Adverse Reaction (Verified 03/01/25 10:19) Constipation levofloxacin (From [place]) Adverse Reaction (Verified 03/01/25 10:19) GI upset losartan Adverse Reaction (Verified 03/01/25 10:19) Abd cramps/diarrhea prednisone Adverse Reaction (Verified 03/01/25 10:19) Other Medications ???Medication ???Instructions ???Recorded ???Confirmed ???Type hydrochlorothiazide 25 mg tablet 25 mg PO DAILY BP 08/02/17 5 History ipratropium 0.5 mg-albuterol 3 mg 3 ml inhalation Q4H PRN PRN Sob 0 03/13/19 03/01/25 History (2.5 mg base)/3 mL nebulization /Or Wheezing soln albuterol sulfate 90 mcg/actuation 2 puff inhalation Q4H PRN 03/01/25 Rx aerosol inhaler (Ventolin HFA) shortness of breath or wheezing #8.5 grams amlodipine 5 mg tablet mg PO 08/24/23 03/01/25 History cetirizine 10 mg tablet (Zyrtec) 10 mg PO DAILY PRN 08/24/23 History naproxen 500 mg tablet 500 mg PO BID PRN 08/24/23 5 History levothyroxine 150 mcg tablet 150 mcg PO QDAY 02/14/24 03/01/25 History (Synthroid) fluticasone 250 mcg-salmeterol 50 inhalation BID 02/13/25 03/01/25 History mcg/dose blistr powdr for inhalation fluticasone propionate 230 2 inh inhalation BID #1 ea 5 03/01/25 Rx mcg-salmeterol 21 mcg/actuation HFA inhaler (Advair HFA) clonidine HCl 0.1 mg tablet 0.1 mg PO BID #60 tabs 02/27/25 Rx aspirin 81 mg tablet,delayed 81 mg PO DAILY #360 tabs 03/01/25 03/01/25 Rx release (Adult Aspirin Regimen) clopidogrel 75 mg tablet (Plavix) 75 mg PO DAILY #30 tabs 03/01/25 03/01/25 Rx metoprolol succinate 50 mg 25 mg PO BID 03/01/25 03/01/25 His tory tablet,extended release 24 hr Is last menstrual period known: No Post menopausal: Yes Patient : No Have you fallen in the past year?: No PFSH Medical History (Updated 03/01/25 @ 11:17 by KANNAN Bermudez) Pneumonia COPD (chronic obstructive pulmonary disease) Bronchitis Chest pain, unspecified Asthma HTN (hypertension) Cough Shortness of breath Surgical History Eyelid retraction unspecified eye, unspecified lid History of D C Family History Father Heart disease Asthma Mother CAD (coronary artery disease) Sister PAD (peripheral artery disease) Cancer Lung Diabetes Grandfather Diabetes Leukemia Social History household members: spouse housing: house pets and animals: Yes pets and animals: dog(s) Smoking Status: Former smoker Tobacco: How many years used: 30 how long ago did patient quit smokin, 1ppd second hand exposure: Yes alcohol intake: never substance use type: does not use HPI HPI HPI: NOBLE WILDE, is a 74 F who presents to the office today for evaluation of severe bilateral carotid stenosis. She recently had an appointment with her PCP and carotid bruit was auscultated. This was further evaluated with carotid duplex which demonstrated R ICA stenosis >70% with max PSV in the mid ICA 406.4/118.73 cm/s and L ICA stenosis >70% with max PSV prox ICA 391.64/113.42 cm/s. She has no history of CVA, TIA, or prior carotid intervention. She denies any recent episodes of focal neurologic symptoms such as unilateral weakness or sensory deficits, facial droop, monocular vision loss, dysarthria. 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 She has a history of smoking, quit about 20 years ago. She is not diabetic. She reports following some episodes of chest pressure with associated diaphoresis she had a cardiac workup in 2022 through [facility] and ultimately a cardiac cath at [facility] which she reports was negative. She tried statins but had severe myalgias so could not tolerate. She does have hypertension, has been more elevated than usual but improved afte (more content not included)... Normal [facility] CV CAROTID STUDY CV CAROTID STUDY [place] [address] Patient: NOBLE WILDE Phone#: : 1950 Age: 74 Gender: F Pt. Type: Out Account: [id number] Location: 011 Ordering: YOVANY COREA Exam Date: 02/28/2025/12:52 Family Phys: Charge Code: [id number] Physician: [place] Order #: [id number] Dose#: PROCEDURE: CAROTID FLOW STUDY COMPARISON: None. INDICATIONS: BILATERAL BRUITS TECHNIQUE: Color duplex Doppler ultrasound and pulsed Doppler analysis were performed to evaluate the cervical carotid arteries and vertebral flow. All measurements for carotid artery narrowing or stenosis were obtained using the ipsilateral distal internal carotid artery as the reference value. SPINNING FRAME FIXER: MAURICIO BULLARD RVT RDCS PT HISTORY: Bruit RIGHT IMAGING FINDINGS: CCA: Mild heterogenous plaque is present. ICA: A hemodynamically significant stenosis is present. ECA: Marked heterogenous plaque is present. Vertebral A: Antegrade flow Comments: Category: V. Near occlusion. There is markedly narrow lumen demonstrated with color and/or power Doppler ultrasound. LEFT IMAGING FINDINGS: CCA: Mild heterogenous plaque is present. ICA: A hemodynamically significant stenosis is present. ECA: Moderate heterogenous plaque is present. Vertebral A: Antegrade flow. Comments: Category: V. Near occlusion. There is markedly narrow lumen demonstrated with color and/or power Doppler ultrasound. RIGHT VELOCITY RECORDINGS Prox CCA: 51.81 cm/s Prox CCA EDV: 10.88 cm/s Mid CCA: 93.26 cm/s Mid CCA EDV: 19.84 cm/s Distal CCA: 64.83 cm/s Distal CCA EDV: 14.60 cm/s ECA: 136.29 cm/s ECA EDV: 14.44 cm/s Prox ICA: 270.32 cm/s Prox ICA EDV: 82.92 cm/s Mid ICA: 406.40 cm/s Mid ICA EDV: 118.73 cm/s Continued Report - Page 2 of 2 Patient: NOBLE WILDE Phone#: : 1950 Age: 74 Gender: F Pt. Type: Out Account: [id number] Location: 011 Ordering: YOVANY BAHENA Exam Date: 02/28/2025/12:52 Family Phys: Charge Code: [id number] Physician: [place] Order #: [id number] Dose#: Distal ICA: 118.04 cm/s Distal ICA EDV: 35.37 cm/s Vertebral Artery: 65.83 cm/s Vertebral Artery EDV: 27.28 cm/s Subclavian Artery: 93.31 cm/s LEFT VELOCITY RECORDINGS Prox CCA: 60.24 cm/s Prox CCA EDV: 13.69 cm/s Mid CCA: 63.97 cm/s Mid CCA EDV: 9.96 cm/s Distal CCA: 56.52 cm/s Distal CCA EDV: 12.76 cm/s ECA: 98.90 cm/s ECA EDV: 8.85 cm/s Prox ICA: 391.64 cm/s Prox ICA EDV: 113.42 cm/s Mid ICA: 82.77 cm/s Mid ICA EDV: 25.84 cm/s Distal ICA: 60.75 cm/s Distal ICA EDV: 24.53 cm/s Vertebral Artery: 32.10 cm/s Vertebral Artery EDV: 7.46 cm/s Subclavian Artery: 66.76 cm/s ICA/CCA ratio Right: 4.36 Left: 6.12 CONCLUSION: 1. Bilateral severely elevated velocities of the internal carotid arteries consistent with high- grade stenosis/near occlusion. Dictated by: Ofelia Tom MD on 02/28/2025 at 14:56 Approved by: Ofelia Tom MD on 02/28/2025 at 14:59 Normal [facility] Emergency Department Summary on 02-27-2025 Emergency Department Summary [facility] Medical Records Department [address] [place] [address] Emergency Department Summary 02/27/25 MR#: [id number] Acct: [id number] Name: NOBLE WILDE Rep #: [id number] : 1950 74 From: Des Avila MD PCP: Yovany Bahena PA-C Status:REG ER Location: ED HPI History of Present Illness Chief Complaint: Hypertension Detail of Chief Complaint: Asymptomatic hypertension Informant: patient and spouse/S.O. Onset/Context/Timing Onset: Days (Started February 25) Context: Sudden Onset Timing: Continuous Quality: Systolic pressure at home greater than 230 Location: Cardiovascular Current Severity: Moderate Maximum Severity: Moderate Worsened by: Unknown Relieved by: Nothing Associated Symptoms Associated Symptoms: None Narrative Narrative: Patient 74-year-old woman essential hypertension for years. She is pleasant metoprolol 25 mg succinate twice daily and hydrochlorothiazide 25 mg daily. She also was seen by her doctor. She is scheduled for a ultrasound of her neck because of a bruit. She was on metoprolol 50 once a day. Was changed to 25 twice daily. The hydrochlorothiazide dose has not been changed. She denies headache. She has double vision blurred vision loss of vision. She has chronic tinnitus. Denies decreased hearing. She denies trouble with speech or swallowing. She denies chest pain or back pain. Denies shortness of breath. Denies orthopnea or PND. She denies nausea or vomiting. She denies problems with balance or coordination. She denies paresthesia, anesthesia or motor weakness upper or lower extremity. She had recent blood work that was all normal. There was no evidence of endorgan dysfunction. This was performed on Wednesday Prior similar symptoms: Yes Recent Illness/Hospitalizatio n: Yes [facility] Medical History (Updated 02/27/25 @ 19:[address] Des Avila MD) Pneumonia COPD (chronic obstructive pulmonary disease) Bronchitis Chest pain, unspecified Asthma HTN (hypertension) Cough Shortness of breath Home Medications ???Medication ???Instructions ???Recorded ???Last Taken ???Type hydrochlorothiazide 25 mg tablet 25 mg PO DAILY BP 08/02/1707/26/ 0 History ipratropium 0.5 mg-albuterol 3 mg 3 ml inhalation Q4H PRN PRN Sob 0 03/13/19 03/19/19 History (2.5 mg base)/3 mL nebulization /Or Wheezing soln albuterol sulfate 90 mcg/actuation 2 puff inhalation Q4H PRN Unknown Rx aerosol inhaler (Ventolin HFA) shortness of breath or wheezing #8.5 grams amlodipine 5 mg tablet mg PO 08/24/23 Unknown History cetirizine 10 mg tablet (Zyrtec) 10 mg PO DAILY PRN 08/24/23 Unknow n History naproxen 500 mg tablet 500 mg PO BID PRN 08/24/23 Unknown History levothyroxine 150 mcg tablet 150 mcg PO QDAY 02/14/24 Unknown H istory (Synthroid) fluticasone 250 mcg-salmeterol 50 inhalation BID 02/13/25 Unknown H istory mcg/dose blistr powdr for inhalation fluticasone propionate 230 2 inh inhalation BID #1 ea 5 Unknown Rx mcg-salmeterol 21 mcg/actuation HFA inhaler (Advair HFA) metoprolol succinate 50 mg 50 mg PO QPM 02/13/25 Unknown Hist ory tablet,extended release 24 hr clonidine HCl 0.1 mg tablet 0.1 mg PO BID #60 tabs 02/27/25 Un known Rx Allergy/AdvReac Type Severity Reaction Status Date / Time acetaminophen (From [place]) AdvReac Constipatio Verified 02/27/25 17:59 n hydrocodone (From [place]) AdvReac Constipatio Verified 02/27/25 17:59 n levofloxacin (From Levaquin) AdvReac GI upset Verified 02/27/25 17:59 losartan AdvReac Abd Verified 02/27/25 17:59 cramps/diarrhea prednisone AdvReac Other Verified 02/27/25 17:59 Family History Father Heart disease Asthma Mother CAD (coronary artery disease) Sister PAD (peripheral artery disease) Cancer Lung Diabetes Grandfather Diabetes Leukemia Surgical History Eyelid retraction unspecified eye, unspecified lid History of D C Social History household members: spouse housing: house pets and animals: Yes pets and animals: dog(s) Smoking Status: Former smoker Tobacco: How many years used: 30 how long ago did patient quit smokin, 1ppd second hand exposure: Yes alcohol intake: never substance use type: does not use ROS ROS ED Constitutional Constitutional ED: Denies chills, fever(s), subjective or sweats Eyes Eyes: Denies blurry vision, change in vision or diplopia ENT ENT ED: Denies rhinorrhea or sore throat Cardiovascular Cardiovascular: Denies chest pain, orthopnea, palpitations or paroxysmal nocturnal dyspnea Respiratory/Chest Respiratory/Chest: Denies cough, dyspnea, dyspnea on exertion, orthop (more content not included)... Normal [facility] Pulmonary Visit Reporton Pulmonary Visit Report [facility] [address] [place] [address] OFFICE VISIT Date of Service: 02/13/25 MR#: [id number] Acct: [id number] Name: NOBLE WILDE Rep #: [id number] : 1950 Provider: AKASH Rogel Age/Sex: 74/F Location: [facility].PMW Status: Signed Assessment and Plan Assessment and Plan (1) Asthma-chronic obstructive pulmonary disease overlap syndrome: Status: Chronic Comment: quit smoking 2000 Plan: Stable, she does not appear to be an exacerbation of asthma/COPD today. No need for prednisone or antibiotic. Continue current maintenance medication class. However, switching specific inhaler due to prescription drug coverage. No additional testing at this time. Contact the office for any new or worsening symptoms. An acute visit and typically be arranged within 1-2 days. Follow-up in 1 year. (2) Obesity: Status: Chronic Qualifiers: Obesity type: due to excess calories Obesity classification: adult class 1 (BMI 30 - 34.9) Serious obesity comorbidity presence: unspecified whether serious comorbidity present Body mass index: BMI 31.0-31.9 Qualified Code(s): E66.811 - Obesity, class 1; E66.09 - Other obesity due to excess calories; Z68.31 - Body mass index [BMI] 31.0-31.9, adult Plan: Improved. She has lost 9 pounds since last office visit. Obesity does complicate the exam, plan, care and prognosis. Continue to encourage healthy weight loss. Medications: New fluticasone propion-salmeterol 230-21 mcg/actuation (Advair HFA) 2 inhalations inhalation BID 1 ea 11RF Discontinued budesonide-formoterol 160-4.5 mcg/actuation (Bre[place]) Discontinued Reason: Cost Prohibitive 2 inhalations inhalation BID 3 ea 3RF Plan Details Follow Up: 1 Year ([facility] ) HPI 1 Y FU Chief Complaint: Routine follow-up HPI Comments Details: This patient presents to the office today for follow-up of her asthma/COPD overlap syndrome. She is ambulatory and currently on room air. She has not recently been seen in the ED or urgent care for any respiratory illness. She has not required any antibiotics or prednisone for any breathing problems. She reports that she had influenza A earlier this year. She states that it took 2 months to finally recover from the cough. She is compliant with Wixela twice daily. She does report rinsing her mouth out after each use. She denies any medication side effect such as sore throat or thrush. She is also compliant with Zyrtec daily. She is no longer taking Singulair. She has not required the use of albuterol rescue inhaler, nor the DuoNebs. If you recall, she is a former smoker but quit smoking back in 2000. She denies any shortness of breath. She denies any cough, sputum production or hemoptysis. She denies any wheezing, chest tightness, chest pain or palpitations. She also denies any fever, chills or body aches. The patient reports that she is trying to lose weight. She states that she has a hiatal hernia and is aware that overweight and obesity can make it more symptomatic. Intake Vital Signs 02/14/24 07:45 02/13/25 08:12 Height 5 ft 4 in 5 ft 4 in Weight: 181 lb BMI 31.0 BP 214/81 H Blood Pressure Location Rt brachial Position Sitting Respiration 20 H Pulse 76 Pulse Source Monitor Temp 97.5 F L Temperature Source Temporal Artery Pulse Oximetry (%) 97 Oxygen Delivery Method room air Intake Visit Reasons: 1 Y FU Chief Complaint: yearly Accompanied by: Self Allergies acetaminophen (From [place]) Adverse Reaction (Verified 02/13/25 14:14) Constipation hydrocodone (From [place]) Adverse Reaction (Verified 02/13/25 14:14) Constipation levofloxacin (From Levaquin) Adverse Reaction (Verified 02/13/25 14:14) GI upset prednisone Adverse Reaction (Verified 02/13/25 14:14) Other Medications ???Medication ???Instructions ???Recorded ???Confirmed ???Type hydrochlorothiazide 25 mg tablet 25 mg PO DAILY BP 08/02/17 5 History ipratropium 0.5 mg-albuterol 3 mg 3 ml inhalation Q4H PRN PRN Sob 0 03/13/19 02/13/25 History (2.5 mg base)/3 mL nebulization /Or Wheezing soln albuterol sulfate 90 mcg/actuation 2 puff inhalation Q4H PRN 02/13/25 Rx aerosol inhaler (Ventolin HFA) shortness of breath or wheezing #8.5 grams amlodipine 5 mg tablet mg PO 08/24/23 02/13/25 History cetirizine 10 mg tablet (Zyrtec) 10 mg PO DAILY PRN 08/24/23 History naproxen 500 mg tablet 500 mg PO BID PRN 08/24/23 5 History levothyroxine 150 mcg tablet 150 mcg PO QDAY 02/14/24 02/13/25 History (Synthroid) fluticasone 250 mcg-salmeterol 50 inhalation BID 02/13/25 02/13/25 History mcg/dose blistr powdr for inhalation fluticasone propionate 230 2 inh inhalation BID #1 ea 5 02/13/25 Rx (more content not included)... Normal [facility] CMP with eGFRon 01-01-2025 AGE 74 years Normal [facility] Comment on above: Performed By: #### 2 [id number] #### [facility],[address] [place] [address]1507 Albumin [Mass/Vol] 3.7 g/dL Normal 3.4 - 5.0 [facility] Comment on above: Performed By: #### 2 [id number] #### [facility],[address] [place] [address] 48650 Albumin/Globulin [Mass ratio] 1.1 {ratio} Normal 0.9 - 1.6 [facility] Comment on above: Performed By: #### 2 38103 #### [facility],[address] [place] [address] 03753 ALK PHOS 94 U/L Normal 46 - 116 [facility] Comment on above: Performed By: #### 2 49890 #### [facility],[address] [place] [address] 21708 ALT [Catalytic activity/Vol] 38 U/L Normal 16 - 63 [facility] Comment on above: Performed By: #### 2 42585 #### [facility],[address] [place] [address] 84396 Anion gap [Moles/Vol] 13 mmol/L Normal 10 - 20 [facility] Comment on above: Performed By: #### 2 08769 #### [facility],[address] [place] [address] 35273 AST [Catalytic activity/Vol] 27 U/L Normal 13 - 39 [facility] Comment on above: Performed By: #### 2 42744 #### [facility],[address] [place] [address] 33566 B/C RATIO 22 ratio Normal 0 - 30 [facility] Comment on above: Performed By: #### 2 78599 #### [facility],[address] [place] [address] 91322 Bilirubin [Mass/Vol] 0.4 mg/dL Normal 0.2 - 1.0 [facility] Comment on above: Performed By: #### 2 29987 #### [facility],[address] [place] [address] 27848 Calcium [Mass/Vol] 9.5 mg/dL Normal 8.5 - 10.1 [facility] Comment on above: Performed By: #### 2 06852 #### [facility],[address] [place] [address] 70797 Chloride [Moles/Vol] 104 mmol/L Normal 98 - 107 [facility] Comment on above: Performed By: #### 2 46385 #### [facility],[address] [place] [address] 84909 CMP with eGFR Normal [facility] Comment on above: Result Comment: COMP REHENSIVE METABOLIC PANEL Performed By: #### 2 38945 #### [facility],[address] [place] [address] 35195 CO2 [Moles/Vol] 28.1 mmol/L Normal 21.0 - 32.0 [facility] Comment on above: Performed By: #### 2 53615 #### [facility],[address] [place] [address] 05698 Creatinine [Mass/Vol] 0.64 mg/dL Normal 0.55 - 1.02 [facility] Comment on above: Performed By: #### 2 21668 #### [facility],[address] [place] [address] 26559 GFR/1.73 sq M.predicted among non-blacks MDRD (S/P/Bld) [Vol rate/Area] mL/min/{1.73_m2} Normal 60 - 999 [facility] Comment on above: Performed By: #### 2 69096 #### [facility],[address] [place] [address] 03898 Result Comment: ACCO RDING TO THE NATIONAL KIDNEY DISEASE EDUCATION PROGRAM(NKDE), A NORMAL eGFR IS A VALUE GREATER THAN OR EQUAL TO 60 ML/MIN/1.73 SQ METERS. CHRONIC KIDNEY DISEASE: <60mL/MIN/1.73 SQ METERS KIDNEY FAILURE: <15mL/MIN/1.73 SQ METERS THIS TEST SHOULD ONLY BE USED FOR PATIENTS 18 YEARS OF AGE AND OLDER. Globulin (S) [Mass/Vol] 3.3 g/dL Normal 1.5 - 3.8 [facility] Comment on above: Performed By: #### 2 86283 #### [facility],[address] [place] [address] 61855 Glucose [Mass/Vol] 95 mg/dL Normal 74 - 106 [facility] Comment on above: Performed By: #### 2 13939 #### [facility],[address] [place] [address] 23608 Potassium [Moles/Vol] 3.6 mmol/L Normal 3.5 - 5.1 [facility] Comment on above: Performed By: #### 2 75490 #### [facility],[address] [place] [address] 52894 Protein [Mass/Vol] 7.0 g/dL Normal 6.4 - 8.2 [facility] Comment on above: Performed By: #### 2 98735 #### [facility],[address] [place] [address] 21132 Sodium [Moles/Vol] 141 mmol/L Normal 136 - 145 [facility] Comment on above: Performed By: #### 2 58994 #### [facility],[address] [place] [address] 39190 Urea nitrogen [Mass/Vol] 14 mg/dL Normal 7 - 18 [facility] Comment on above: Performed By: #### 2 70405 #### [facility],[address] [place] [address] 04055 LIPID PROFILEon 01-01-2025 Cholesterol [Mass/Vol] 258 mg/dL High 0 - 240 [facility] Comment on above: Performed By: #### 2 47296 #### [facility],[address] [place] [address] 72502 Cholesterol in HDL [Mass/Vol] 78 mg/dL High 40 - 60 [facility] Comment on above: Performed By: #### 2 96992 #### [facility],[address] [place] [address] 65775 Cholesterol in LDL [Mass/Vol] 167 mg/dL High 0 - 129 [facility] Comment on above: Performed By: #### 2 69796 #### [facility],[address] [place] [address] 29883 Cholesterol.total/Ch olesterol in HDL [Mass ratio] 3.3 {ratio} Normal 0.0 - 5.0 [facility] Comment on above: Performed By: #### 2 67850 #### [facility],[address] [place] [address] 78140 Lipid 1996 panel Normal [facility] Comment on above: Result Comment: LIPI D PROFILE Performed By: #### 2 44097 #### [facility],[address] [place] [address] 15062 Triglyceride [Mass/Vol] 67 mg/dL Normal 0 - 150 [facility] Comment on above: Performed By: #### 2 17622 #### [facility],[address] [place] [address] 66431 TSHon 01-01-2025 TSH Qn 2.59 m[IU]/L Normal 0.35 - 3.74 [facility] Comment on above: Performed By: #### 2 98285 #### [facility],[address] [place] [address] LABORATORYOrdered By: Freda Diaz on 05-06-2023 INR Coag (PPP) [Relative time] 0.9 {INR} Invalid Interpretation Code AH Auto Coag SS PT Coag (PPP) [Time] 10.5 s Invalid Interpretation Code 9.0 - 14.8 seconds AH Auto Coag SS PROon 05-06-2023 INR Coag (PPP) [Relative time] 0.9 {INR} Normal [facility] ([place]) Comment on above: Order Comment: blue top hemolyzed dean Álvarez at 05/06/2023 07:16:24 EDT-mlm Result Comment: The [employer] (CHEST, 1991, 102:312S-25S) recommended therapeutic range for oral anticoagulant therapy is: LOW RISK: Prophylaxis of venous thrombosis INR: 2.0-3.0 Treatment of pulmonary embolism 2.0-3.0 Prevention of systemic embolism 2.0-3.0 HIGH RISK: Mechanical prosthetic valves 2.5-3.5 Performed By: #### P RO #### [facility] [address] [place] [address] PT Coag (PPP) [Time] 10.5 s Normal 9.0-14.8 [facility] ([place]) Comment on above: Order Comment: blue top hemolyzed called Sharon Álvarez at 05/06/2023 07:16:24 EDT-mlm Result Comment: Effe ctive 05/15/08, Protime results may be affected by some antibiotics (i.e. Ciprofloxacin, Azithromycin, Bactrim) which may potentiate the action of oral anticoagulants, with further increase in Protime/INR. Performed By: #### P RO #### [place] [address] FECAL GLOBIN BY IMMUNOCHEM. (MEDICARE)on 09-11-2020 FECAL GLOBIN BY IMMUNOCHEM. (MEDICARE) SEE NOTE Abnormal [facility] Comment on above: Order Comment: FASTI NG: UNKNOWN Result Comment: FECAL GLOBIN BY IMMUNOCHEM. (MEDICARE) Micro Number: [id number] Test Status: Final Specimen Source: INSURE () FOBT TEST CARD Specimen Quality: Adequate Fecal Globin: Detected Performed By: #### 1 1293 #### [facility]-[address], [address] [place] [address] Pre Coder: Michael Lyn MD COMPREHENSIVE METABOLIC PANE [facility] 09-05-2020 Albumin [Mass/Vol] 4.1 g/dL Normal 3.6-5.1 [facility] Comment on above: Performed By: #### 8 99, 10522, 7600 #### [facility]-[place] [address] Pre Coder: Michael Lyn MD Albumin/Globulin [Mass ratio] 1.7 (calc) Normal 1.0-2.5 [facility] Comment on above: Performed By: #### 8 99, 77588, 7600 #### [facility]-[place] [address] Pre Coder: Michael Lyn MD ALP [Catalytic activity/Vol] 87 U/L Normal 37-153 [facility] Comment on above: Performed By: #### 8 99, 09604, 7600 #### [facility]-[place] [address] Pre Coder: Michael Lyn MD ALT [Catalytic activity/Vol] 14 U/L Normal 6-29 [facility] Comment on above: Performed By: #### 8 99, 11675, 7600 #### [facility] , [address] [place] [address] Pre Coder: Michael Lyn MD AST [Catalytic activity/Vol] 13 U/L Normal 10-35 [facility] Comment on above: Performed By: #### 8 , 67116, 7600 #### [facility]-[address], [address] [place] [address] Pre Coder: Michael Lyn MD Bilirubin [Mass/Vol] 0.4 mg/dL Normal 0.2-1.2 [facility] Comment on above: Performed By: #### 8 , , 7600 #### [facility]-[address], [address] [place] [address] Pre Coder: Michael Lyn MD Calcium [Mass/Vol] 10.0 mg/dL Normal 8.6-10.4 [facility] Comment on above: Performed By: #### 8 , , 7599 #### [facility]-[address], [address] [place] [address] Pre Coder: Michael Lyn MD Chloride [Moles/Vol] 100 mmol/L Normal 98-110 [facility] Comment on above: Performed By: #### 8 , 93343, 7600 #### [facility]-[address], [address] [place] [address] Pre Coder: Michael Lyn MD CO2 [Moles/Vol] 27 mmol/L Normal 20-32 [facility] Comment on above: Performed By: #### 8 , 87599, 7600 #### [facility]-[place] [address] [address] , [address] [place] [address] Pre Coder: Michael Lyn MD Creatinine [Mass/Vol] 0.72 mg/dL Normal 0.50-0.99 [facility] Comment on above: Result Comment: For patients >49 years of age, the reference limit for Creatinine is approximately 13% higher for people identified as -Sierra Leone[place]. Performed By: #### 8 , 43688, 7600 #### [facility]-[address], [address] [place] [address] Pre Coder: Michael Lyn MD eGFR NON-AFR. MALDIVIAN 86 mL/min/1.73m2 Normal > OR = 60 [facility] Comment on above: Performed By: #### 8 , , 0 #### [facility]-[address], [address] [place] [address] Pre Coder: Michael Lyn MD GFR/1.73 sq M predicted among blacks MDRD (S/P/Bld) [Vol rate/Area] 100 mL/min/{1.73_m2} Normal > OR = 60 [facility] Comment on above: Performed By: #### 8 , , 7600 #### [facility]-[address], [address] [place] [address] Pre Coder: Michael Lyn MD Globulin (S) [Mass/Vol] 2.4 g/dL (calc) Normal 1.9-3.7 [facility] Comment on above: Performed By: #### 8 , , 0 #### [facility]-[address], [address] [place] [address] Pre Coder: Michael Lyn MD Glucose [Mass/Vol] 84 mg/dL Normal 65-99 [facility] Comment on above: Result Comment: Fasting reference interval Performed By: #### 8 , 65766, 7600 #### [facility]-[address], [address] [place] [address] Pre Coder: Michael Lyn MD Potassium [Moles/Vol] 4.0 mmol/L Normal 3.5-5.3 [facility] Comment on above: Performed By: #### 8 , 94288, 7600 #### [facility]-[address], [address] [place] [address] Pre Coder: Michael Lyn MD Protein [Mass/Vol] 6.5 g/dL Normal 6.1-8.1 [facility] Comment on above: Performed By: #### 8 , 01177, 7600 #### [facility]-[address], [address] [place] [address] Pre Coder: Michael Lyn MD Sodium [Moles/Vol] 140 mmol/L Normal 135-146 [facility] Comment on above: Performed By: #### 8 , 91060, 7600 #### [facility]-[address], [address] [place] [address] Pre Coder: Michael Lyn MD Urea nitrogen [Mass/Vol] 16 mg/dL Normal 7-25 [facility] Comment on above: Performed By: #### 8 99, 60040, 7600 #### [facility]-[address], [address] [place] [address] Pre Coder: Michael Lyn MD Urea nitrogen/Creatinine [Mass ratio] NOT APPLICABLE Normal 6-22 [facility] Comment on above: Performed By: #### 8 , 91527, 7600 #### [facility]-[address], [address] [place] [address] Pre Coder: Michael Lyn MD LIPID PANEL, [facility] 11-0 Cholesterol [Mass/Vol] 252 mg/dL High <200 [facility] Comment on above: Performed By: #### 8 , 09415, 7600 #### [facility]-[address], [address] [place] [address] Pre Coder: Michael Lyn MD Cholesterol in HDL [Mass/Vol] 68 mg/dL Normal > OR = 50 [facility] Comment on above: Performed By: #### 8 99, 55364, 7600 #### [facility]-[address], [address] [place] [address] Pre Coder: Michael Lyn MD Cholesterol in LDL [Mass/Vol] 168 mg/dL (calc) High [facility] Comment on above: Result Comment: Refe rence range: <100 Desirable range <100 mg/dL for primary prevention; <70 mg/dL for patients with CHD or diabetic patients with > or = 2 CHD risk factors. LDL-C is now calculated using the Ezra calculation, which is a validated novel method providing better accuracy than the Friedewald equation in the estimation of LDL-C. Sky SS et al. MONA. 2013;310(19): 4680-5241 (http://education.[facility].TapFwd/faq/EKX508) Performed By: #### 8 , , 0 #### [facility]-[address], [address] [place] [address] Pre Coder: Michael Lyn MD Cholesterol.total/Ch olesterol in HDL [Mass ratio] 3.7 (calc) Normal <5.0 [facility] Comment on above: Performed By: #### 8 , , 0 #### [facility]-[address], [address] [place] [address] Pre Coder: Michael Lyn MD NON HDL CHOLESTEROL 184 mg/dL (calc) High <130 [facility] Comment on above: Result Comment: For patients with diabetes plus 1 major ASCVD risk factor, treating to a non-HDL-C goal of <100 mg/dL (LDL-C of <70 mg/dL) is considered a therapeutic option. Performed By: #### 8 , , 0 #### [facility]-[address], [address] [place] [address] Pre Coder: Michael Lyn MD Triglyceride [Mass/Vol] 64 mg/dL Normal <150 [facility] Comment on above: Performed By: #### 8 , 97746, 0 #### [facility]-[address], [address] [place] [address] Pre Coder: Michael Lyn MD TSHon 09-05-2020 TSH Qn 1.32 m[IU]/L Normal 0.40-4.50 [facility] Comment on above: Performed By: #### 8 , 19949, 0 #### [facility]-[address], [address] [place] [address] Pre Coder: Michael Lyn MD Office Visit: UC: milad Documentation of current medications (procedure) Done Invalid Interpretation Code [facility] Work Phone: Fall risk assessment No Invalid Interpretation Code [facility] Work Phone: Tobacco smoking status NHIS Never Invalid Interpretation Code [facility] Work Phone: Tobacco use [facility] Never smoker Invalid Interpretation Code [facility] Work Phone: Vital Signs Date Time Vital Sign Value Performing Clinician Facility 03-05-2025 12:36-0400 Body temperature 98.6 [degF] Yovany Mevvy PA-C Work Phone: [facility] 03-05-2025 12:36-0400 Body weight 81.19 kg eTect PA-C Work Phone: [facility] 03-05-2025 12:36-0400 Diastolic blood pressure 98 mm[Hg] eTect PA-C Work Phone: [facility] 03-05-2025 12:36-0400 Heart rate 77 /min Yovany Mevvy PA-C Work Phone: [facility] 03-05-2025 12:36-0400 Inhaled oxygen flow rate 97 L/min eTect PA-C Work Phone: [facility] 03-05-2025 12:36-0400 Respiratory rate 16 /min eTect PA-C Work Phone: [facility] 03-05-2025 12:36-0400 SaO2% (BldA) [Mass fraction] 97 % eTect PA-C Work Phone: [facility] 03-05-2025 12:36-0400 Systolic blood pressure 170 mm[Hg] eTect PA-C Work Phone: [facility] 03-01-2025 11:31-0400 Body height 162.56 cm eTect PA-C Work Phone: [facility] 03-01-2025 10:13-0400 Body temperature 98 [degF] Yovany Mevvy PA-C Work Phone: [facility] 03-01-2025 10:13-0400 Body weight 81.19 kg eTect PA-C Work Phone: [facility] 03-01-2025 10:13-0400 Diastolic blood pressure 72 mm[Hg] Yovany Alexandria PA-C Work Phone: [facility] 03-01-2025 10:13-0400 Heart rate 74 /min Yovany Alexandria PA-C Work Phone: [facility] 03-01-2025 10:13-0400 Respiratory rate 16 /min Yovany Alexandria PA-C Work Phone: [facility] 03-01-2025 10:13-0400 SaO2% (BldA) [Mass fraction] 98 % Yovany Alexandria PA-C Work Phone: [facility] 03-01-2025 10:13-0400 Systolic blood pressure 175 mm[Hg] Yovany Alexandria PA-C Work Phone: [facility] 02-27-2025 19:49-0400 Body temperature 98 [degF] Yovany Alexandria PA-C Work Phone: [facility] 02-27-2025 19:49-0400 Diastolic blood pressure 87 mm[Hg] Yovany Alexandria PA-C Work Phone: [facility] 02-27-2025 19:49-0400 Heart rate 84 /min Yovany Alexandria PA-C Work Phone: [facility] 02-27-2025 19:49-0400 Respiratory rate 15 /min Yovany Alexandria PA-C Work Phone: [facility] 02-27-2025 19:49-0400 SaO2% (BldA) [Mass fraction] 97 % Yovany Alexandria PA-C Work Phone: [facility] 02-27-2025 19:49-0400 Systolic blood pressure 202 mm[Hg] Yovany Alexandria PA-C Work Phone: [facility] 02-27-2025 17:54-0400 Body height 162.56 cm Yovany Mevvy PA-C Work Phone: [facility] 02-27-2025 17:54-0400 Body mass index (BMI) [Ratio] 31.1 kg/m2 eTect PA-C Work Phone: [facility] 02-27-2025 17:54-0400 Body weight 82.28 kg eTect PA-C Work Phone: [facility] 02-13-2025 08:12-0400 Body mass index (BMI) [Ratio] 31 kg/m2 eTect PA-C Work Phone: [facility] 02-13-2025 08:12-0400 Body temperature 97.5 [degF] eTect PA-C Work Phone: [facility] 02-13-2025 08:12-0400 Body weight 82.1 kg eTect PA-C Work Phone: [facility] 02-13-2025 08:12-0400 Diastolic blood pressure 81 mm[Hg] eTect PA-C Work Phone: [facility] 02-13-2025 08:12-0400 Heart rate 76 /min eTect PA-C Work Phone: [facility] 02-13-2025 08:12-0400 Respiratory rate 20 /min eTect PA-C Work Phone: [facility] 02-13-2025 08:12-0400 SaO2% (BldA) [Mass fraction] 97 % eTect PA-C Work Phone: [facility] 02-13-2025 08:12-0400 Systolic blood pressure 214 mm[Hg] Yovany Mevvy PA-C Work Phone: [facility] 05-06-2023 10:27-0400 Diastolic Blood Pressure Non-Invasive [address] WILLIAM SCOTT MD [facility] 05-06-2023 10:27-0400 Heart rate 67 /min DR WILLIAM SCOTT MD [facility] 05-06-2023 10:27-0400 Respiratory rate 19 /min DR WILLIAM SCOTT MD [facility] 05-06-2023 10:27-0400 Systolic Blood Pressure Non-Invasive [address] WILLIAM SCOTT MD [facility] 05-06-2023 10:12-0400 Body temperature 98.24 [degF] DR WILLIAM SCOTT MD [address] [place] [address] 05-06-2023 10:12-0400 Diastolic Blood Pressure Non-Invasive [address] WILLIAM SCOTT MD [address] [place] [address] 05-06-2023 10:12-0400 Heart rate 67 /min DR WILLIAM SCOTT MD [address] [place] [address] 05-06-2023 10:12-0400 Respiratory rate 18 /min DR WILLIAM SCOTT MD [address] [place] [address] 05-06-2023 10:12-0400 Systolic Blood Pressure Non-Invasive [address] WILLIAM SCOTT MD [address] [place] [address] 05-06-2023 09:58-0400 Diastolic Blood Pressure Non-Invasive [address] WILLIAM SCOTT MD [address] [place] [address] 05-06-2023 09:58-0400 Heart rate 72 /min DR WILLIAM SCOTT MD [address] [place] [address] 05-06-2023 09:58-0400 Respiratory rate 16 /min DR WILLIAM SCOTT MD [address] [place] [address] 05-06-2023 09:58-0400 Systolic Blood Pressure Non-Invasive [address] WILLIAM SCOTT MD [address] [place] [address] 05-06-2023 06:10-0400 Blood Pressure Cuff Size DR WILLIAM SCOTT MD [address] [place] [address] 05-06-2023 06:10-[address] WILLIAM SCOTT MD [facility] 05-06-2023 06:10-[address] WILLIAM Fields [facility] 05-06-2023 06:10-0400 Body height 162.[address] WILLIAM SCOTT MD [facility] 05-06-2023 06:10-0400 Body temperature 98.06 [degF] DR WILLIAM SCOTT MD [facility] 05-06-2023 06:10-0400 Body weight 87.[address] WILLIAM SCOTT MD [facility] 05-06-2023 06:10-0400 Body weight 33.21 kg/m2 DR WILLIAM SCOTT MD [facility] 07-27-2017 11:57-0400 BMI (Body Mass Index) 31.75 kg/m2 Fredajitendra Stewart LPN [facility] Work Phone: 07-27-2017 11:57-0400 Body Temperature 98.8 [degF] Freda Frankar ORE SMELTER [facility] Work Phone: 07-27-2017 11:57-0400 BP Diastolic 86 mm[Hg] Freda Frankar ORE SMELTER [facility] Work Phone: 07-27-2017 11:57-0400 BP Systolic 132 mm[Hg] Freda Frankar ORE SMELTER [facility] Work Phone: 07-27-2017 11:57-0400 Height 162.56 cm Freda Cogar ORE SMELTER [facility] Work Phone: 07-27-2017 11:57-0400 Pulse (Heart Rate) 113 /min Freda Frankmatilda ORE SMELTER [facility] Work Phone: 07-27-2017 11:57-0400 Respiratory Rate 14 /min Freda Frankmatilda ORE SMELTER [facility] Work Phone: 07-27-2017 11:57-0400 Weight 83.92 kg Freda Stewart MADAI [facility] Work Phone: 04-08-2016 15:10-7148 BSA (Body Surface Area) 1.91 m2 Freda Stewart MADAI [facility] Work Phone: Encounters Encounter Date Encounter Type Care Provider Facility Start: 04-09-2025 ambulatory [facility] Facility:[facility] Start: 04-06-2025 Encounter for other preprocedural examination [facility] Start: 03-21-2025 End: 03-21-2025 ambulatory [facility] Facility:[facility] Start: 03-05-2025 End: 03-05-[address] Papo Sumner MD -[facility] Work Phone: Start: 03-05-2025 End: 03-05-2025 ambulatory [facility] Facility:[facility] Start: 03-02-2025 End: 03-02-2025 ambulatory [facility] PA-C Work Phone: [facility] Work Phone: Start: 03-02-2025 End: 03-02-2025 Patient encounter procedure Zeinab Leung [facility] Work Phone: Start: 03-01-2025 End: 03-01-2025 Patient encounter procedure Zeinab BRUNNER -[facility] Work Phone: Start: 03-01-2025 End: 03-02-2025 ambulatory Zeinab Carrillo Facility:[facility] Start: 02-28-2025 End: 02-28-2025 ambulatory [facility] Start: 02-27-2025 End: 02-27-2025 Emergency department patient visit Yovany BRUNNER-C Work Phone: -Emergency Department Work Phone: Start: 02-26-2025 End: 02-26-2025 ambulatory [facility] Start: 02-13-2025 End: 02-13-2025 Patient encounter procedure Tatiana BUSTOS [facility] Work Phone: Start: 02-13-2025 End: 02-13-2025 ambulatory [facility] Facility:[facility] Start: 01-01-2025 End: 01-01-2025 ambulatory [facility] Start: 05-06-2023 End: 05-06-[address] WILLIAM SCOTT MD Facility:[facility] Start: 05-06-2023 End: 05-06-[address] WILLIAM SCOTT MD [facility] Start: 03-20-2023 End: 03-20-2023 ambulatory [facility] Work Phone: Start: 03-20-2023 End: 03-20-2023 Patient encounter procedure [facility]-Radiology, [facility] Procedures Date Procedure Procedure Detail Performing Clinician Start: 03-02-2025 CT angiography of he ad and neck [facility] PA-C Work Phone: Start: 03-20-2023 Plain x-ray of wrist Start: 03-20-2023 X-ray of radius and ulna Start: 11-01-2019 Kidney stone (disorder) DR WILLIAM SCOTT MD Asthma (disorder) DR WILLIAM SCOTT MD Graves' disease (disorder) D R WILLIAM SCOTT MD H/O: surgery History of D&C Hypertensive disorde r, systemic arterial (disorder) DR WILLIAM SCOTT MD Hypothyroidism (disorder) DR WILLIAM SCOTT MD Plan of Treatment Date Care Activity Detail Author Start: 02-27-2025 [facility] Start: 07-27-2017 End: 07-27-2017 Appointment Appointment [facility] Work Phone: Patient Education [facility] Work Phone: Patient referral [facility] Work Phone: Payers Date Payer Category Payer Self-pay [id number] 2024 Medicare [id number] 2023 Unknown [id number] 2017 Medicare [id number] 1950 Unknown [id number] 2.16.8 [id number] 1950 Unknown [id number] 2.16.8 [id number] 1950 Unknown [id number] 2.16.8 [id number] 1950 Unknown [id number] 2.16.8 [id number] 1950 Unknown [id number] 2.16.8 [id number] Unknown [id number] Unknown [id number] 2.16.8 [id number] Unknown [id number] 2.16.8 [id number] Unknown [id number] 2.16.8 [id number] Unknown [id number] 2.16.8 [id number] Unknown [id number] 2.16.8 [id number] Unknown [id number] 2.16.8 [id number] Unknown [id number] 2.16.8 [id number] Social History Date Type Detail Facility Start: 07-22-2022 Tobacco smoking status NHIS Unknown if ever smoked [facility] Start: 03-20-2019 None [facility] Start: 08-03-2020 Spouse/ Signif icant Other [facility] Start: 1950 Sex Assigned At Female W [facility] Start: 05-06-2023 End: 03-01-2025 Tobacco smoking status Ex-smoker (finding) [facility] Comment on above: stopped 25 years ago Sex Assigned At Sex [facility] Start: 02-27-2025 Sex Female (finding) [facility] Medical Equipment Procedure Code Equipment Code Equipment Origin al Text Equipment Identifier Dates STENT,URETERAL PIGTAIL [id number] FDA Start: 07-26-2020 STENT,URETERAL PIGTAIL [id number] FDA Start: 07-26-2020 STENT,URETERAL PIGTAIL [id number] FDA Start: 07-26-2020 Functional Status Date Assessment Result Facility 05-06-2023 Functional Status Ambulating in head, Ambulating in room, Awake [facility] 05-06-2023 Functional [facility] 05-06-2023 Functional Status Room located n ear nursing station, Room check performed [facility] Mental Status Date Assessment Result Facility 02-27-2025 Cognitive function Level Of Cons ciousness Awake;Alert;Appropriate [facility] Work Phone: 05-06-2023 Mental Status Orientation Oriented x 4 [facility] 05-06-2023 Mental Status [facility] Clinical Notes 05-06-2023 to 03-02-2025 Note Date & Type Note Facility 03-02-2025 Radiology Diagnostic study note [facility] Imaging Services [address] [place] [address] CTA Head AND Neck W/ Contrast MR#: [id number] Acct: [id number] Name: NOBLE WILDE Rep #: [id number] : 1950 F 74 From: Gogo Yip MD PCP: Yovany Bahena PA-C Status: REG C MELANIE Study:CTA Head AND Neck W/ Contrast Date of E xam: 03/02/25 Exam# [id number] Ordering Dr: Carrillo,All jessi PA PROCEDURE: CT HEAD WITHOUT CONTRAST AND CTA HEAD AND NECK W/ CONTRAST, 03/02/2025 REASON FOR EXAM: SEVERE BILATERAL CAROTID STENOSIS >70% TECHNIQUE: CT head was performed without IV contrast. Subsequently, CTA head and neck was performed with IV contrast. Multiplanar reformats as well as MIP and 3D reconstructions were generated. CONTRAST: Isovue 370 VOLUME: 100mL RADIATION DOSE SUMMARY: CTDlvol: 44.99+ 16.61+ 18.17 mGy DLP: 1448.74 mGycm One or more dose reduction techniques were used (e.g., Automated exposure control, adjustment of the mA and/or kV according to patient size, use of iterative reconstruction technique). COMPARISON: None. FINDINGS: Note the exam is optimized for evaluation of the head and major cervical/intracranial arterial vasculature rather than the remaining soft tissues. CT HEAD: Cerebrum: No visible acute hemorrhage, definite acute territorial infarct, or visible mass. Minimal cerebral volume loss. Cerebellum/brainstem: Unremarkable. Note slight limitation due to beam hardeningartifact. Ventricles/extra-axial spaces: Age-appropriate appearance. Visualized paranasal sinuses/mastoid air cells: Unremarkable. Scalp/calvarium: Unremarkable. Other: Unremarkable. CTA NECK: Aortic Arch: Nonobstructing atherosclerosis.. Brachiocephalic and subclavians: 70% stenosis along the distal LEFT subclavian, distal to the LEFT vertebral artery origin. Less than 20 % stenosis at the origin of the LEFT subclavian. RIGHT Carotid: Right CCA: Mild 20% stenosis at the origin. Right ICA: 80% stenosis just beyond the origin of the RIGHT. Nonobstructing atherosclerosis in the bulb. Retropharyngeal course. Right ECA: 30% stenosis of the origin. LEFT Carotid: Left CCA: Patent. Left ICA: 80% stenosis in the LEFT carotid bulb and ICA origin. Left ECA: Less than 20% stenosis at the origin. Vertebrals: Slight LEFT dominance. Arise from the subclavians. Both vertebrals form the basilar. RIGHT Vertebral: Patent. LEFT Vertebral: 50% stenosis at the origin. CTA HEAD: Slight limitation related to venous contamination. Anterior circulation: Patent. Posterior circulation: Patent. origin of the RIGHT RELATIONSHIP SPECIALIST. RIGHT PICA and LEFT AICA are visualized. Venous structures: Grossly unremarkable within limits of nondedicated technique. Other: Mild cervical spondylosis. Demineralization. Reversal of the normal cervical lordosis may be positional, degenerative, or related to pain/muscular spasm.. Mild cervicothoracic levoscoliosis may be positional. Emphysema. Biapical pleural/parenchymal scarring. Atrophic or absent thyroid. Complete effacement of the LEFT piriform sinus. CT/CTA Head AND Neck W/ Contrast IMPRESSION: 1. Severe 80% stenoses just beyond the origin of the RIGHT ICA and involving theLEFT carotid bulb and ICA origin. Severe 70% stenosis along the distal LEFT subclavian. Additional less severe stenoses as detailed. 2. Complete effacement of the LEFT piriform sinus without measurable mass. Thiscould reflect asymmetric atrophy related to dysfunction of the RIGHT recurrent laryngeal nerve or an occult laryngeal lesionon the LEFT. Recommend direct visualization and consider CT neck/chest with contrast as indicated. 3. No visible acute noncontrast intracranial findings. 4. Additional description as above. Reading Location: [id number] CC: LORNA Bahena; KANNAN Bermudez ~ Torch Burner: Signed [facility] 02-27-2025 Discharge summary [facility] 02-27-2025 Discharge summary Note Date/Time February 27, 2025 7:39pm [facility] Medical Records Department [address] [place] [id number] Emergency Department Summary 02/27/25 MR#: [id number] Acct: [id number] Name: NOBLE WILDE Rep #:[id number] : 1950 74 From: Des Avila MD PCP: Yovany Bahena PA-C Status:REG E R Location: ED HPI History of Present Illness Chief Complaint: Hypertension Detail of Chief Complaint: Asymptomatic hypertension Informant: patient and spouse/S.O. Onset/Context/Timing Onset: Days (Started February 25) Context: Sudden Onset Timing: Continuous Quality: Systolic pressure at home greater than 230 Location: Cardiovascular Current Severity: Moderate Maximum Severity: Moderate Worsened by: Unknown Relieved by: Nothing Associated Symptoms Associated Symptoms: None Narrative Narrative: Patient 74-year-old woman essential hypertension for years. She is pleasant metoprolol 25 mg succinate twice daily and hydrochlorothiazide 25 mg daily. Yao was seen by her doctor. She is scheduled for a ultrasound of her neck because of a bruit. She was on metoprolol 50 once a day. Was changed to 25 twice daily. The hydrochlorothiazide dose has not been changed. She denies headache. She has double vision blurred vision loss of vision. She has chronic tinnitus. Denies decreased hearing. She denies trouble with speechor swallowing. She denies chest pain or back pain. Denies shortness of breath. Denies orthopnea or PND. She denies nausea or vomiting. She denies problems with balance or coordination. She denies paresthesia, anesthesia or motor weakness upper or lower extremity. She had recent blood work that was all normal. There was no evidence of endorgan dysfunction. This was performed on Wednesday Prior similar symptoms: Yes Recent Illness/Hospitalization: Yes [facility] Medical History (Updated 02/27/25 @ 19:[address] Des Avila MD) Pneumonia COPD (chronic obstructive pulmonary disease) Bronchitis Chest pain, unspecified Asthma HTN (hypertension) Cough Shortness of breath Home Medications ?Medication ?Instructions ?Recorded ?Last Taken ?Type hydrochlorothiazide 25 mg tablet 25 mg PO DAILY BP 12/1807/26/20 History ipratropium 0.5 mg-albuterol 3 mg 3 ml inhalation Q4H PRN PRN Sob 03/13/19 03/19/19 History (2.5 mg base)/3 mL nebulization &/Or Wheezing soln albuterol sulfate 90 mcg/actuation 2 puff inhalation Q 4H PRN 08/24/23 Unknown Rx aerosol inhaler (Ventolin HFA) shortness of breath or wheezing #8.5 grams amlodipine 5 mg tablet mg PO 08/24/23 Unknown Histo ry cetirizine 10 mg tablet (Zyrtec) 10 mg PO DAILY PRN Unknown History naproxen 500 mg tablet 500 mg PO BID PRN 08/24/23 U nknown History levothyroxine 150 mcg tablet 150 mcg PO QDAY 02/14/24 Unknown History (Synthroid) fluticasone 250 mcg-salmeterol 50 inhalation BID 02/13 Unknown History mcg/dose blistr powdr for inhalation fluticasone propionate 230 2 inh inhalation BID #1 ea 02/13/25 Unknown Rx mcg-salmeterol 21 mcg/actuation HFA inhaler (Advair HFA) metoprolol succinate 50 mg 50 mg PO QPM 02/13/25 Unkno wn History tablet,extended release 24 hr clonidine HCl 0.1 mg tablet 0.1 mg PO BID #60 tabs Unknown Rx Allergy/AdvReac Type Severity Reaction Status Date / Time acetaminophen (From [place]) AdvReac Constipatio Verified 02/27/25 17:59 n hydrocodone (From [place]) AdvReac Constipatio Verified 02/27/25 17:59 n levofloxacin (From [place]) AdvReac GI upset Verified 02/27/25 17:59 losartan AdvReac Abd Verified 02/27/25 17:59 cramps/diarrhea prednisone AdvReac Other Verified 02/27/25 17:59 Family History Father Heart disease Asthma Mother CAD (coronary artery disease) Sister PAD (peripheral artery disease) Cancer Lung Diabetes Grandfather Diabetes Leukemia Surgical History Eyelid retraction unspecified eye, unspecified lid History of D&C Social History household members: spouse housing: house pets and animals: Yes pets and animals: dog(s) Smoking Status: Former smoker Tobacco: How many years used: 30 how long ago did patient quit smokin, 1ppd second hand exposure: Yes alcohol intake: never substance use type: does not use ROS ROS ED Constitutional Constitutional ED: Denies chills, fever(s), subjective or sweats Eyes Eyes: Denies blurry vision, change in vision or diplopia ENT ENT ED: Denies rhinorrhea or sore throat Cardiovascular Cardiovascular: Denies chest pain, orthopnea, palpitations or paroxysmal nocturnal dyspnea Respiratory/Chest Respiratory/Chest: Denies cough, dyspnea, dyspnea on exertion, orthopnea or paroxysmal nocturnal dyspnea Gastrointestinal Gastrointestinal: Denies nausea or vomiting Musculoskeletal Musculoskeletal: Denies back pain Neurologic Neurologic: Reports other Details: See HPI narrative for more detail ; Denies headache(s), paresthesias or weakness Hematologic/Lymphatic Hematologic/Lymphatic: Reports systems reviewed and no addt'l complaints, exceptas documented EXAM Physical Exam Const Vital Signs: 02/27/25 17:54 02/27/25 18:41 Temperature 98.1 F Temperature Source Oral Pulse Rate 82 Respiratory Rate 16 Respiratory Effort Normal Non-Labored Respiratory Pattern Normal Blood Pressure 226/113 H Blood Pressure Mean 150 Pulse Ox 96 Oxygen Delivery Method Room Air Blood pressure is elevated 226/113. Positive well nourished and well developed General Appearance ED: well developed and NAD; Negative for cyanotic, diaphoretic or pallor HEENT Reports moist mucous membranes HEENT Narrative: Ears are normal. Nares patent. Uvula is midline. No deviation tongue protrusion Cardio regular rate, regular rhythm, S1 normal heart sound, S2 normal heart sound and no murmurs Extremity normal to inspection Neuro oriented x3, CN's II-XII intact bilaterally and no sensory deficits noted Neuro Narrative: There is no dysmetria. Sensorium / Orientation: alert Motor Exam: strength 5/5 throughout Skin no rashes or lesions noted, no wounds and skin turgor normal General Skin Exam: Negative for jaundice or pallor MDM MDM MDM Narrative Medical decision making narrative: Patient has asymptomatic hypertension. Since she had blood work done this week there is no indication to repeat this. She does have a carotid bruit on the right. She is scheduled for a ultrasound of her carotids. Since she is asymptomatic nothing further needs to be done with respect to the bruit. Plan is clonidine 0.1 mg in the Emergency Department and discharge prescription for clonidine. Patient will not take SARY inhibitors because her sister developed angioedema and was placed in a coma because of persistent angioedema. She also had cancer. History & Record Review Additional record(s) reviewed:: Prior outpatient record (Patient is followed in the pulmonary office. Tatiana Benjamin's note was reviewed. She is seen for asthma chronic obstructive pulmonary disease, overlapping syndrome. Most recentvisit was February 13. She was last seen by Dr. Sifuentes in August 2023.) and Prior ED visit (Most recent ER visit is August [address] Clint Santana's note was reviewed.) Treatment and Re-Evaluation :: Patient was informed why her blood pressure was not lowered quickly. Based on study that was performed many years ago. Discharge Plan Triage Chief Complaint: Hypertension ED Provider: Des Avila Dx/Rx/DC Orders Clinical Impression: Asymptomatic hypertensive urgency, Stage 3 severe COPD by GOLD classification, HTN (hypertension) Instructions: ED High Blood Pressure Hypertension Prescriptions: New clonidine HCl 0.1 mg tablet 0.1 mg PO BID Qty: 60 0RF No Action amlodipine 5 mg tablet PO naproxen 500 mg tablet 500 mg PO BID PRN cetirizine [Zyrtec] 10 mg tablet 10 mg PO DAILY PRN albuterol sulfate [Ventolin HFA] 90 mcg/actuation HFA aerosol inhaler 2 puff inhalation Q4H PRN (Reason: shortness of breath or wheezing) Qty: 8.5 6RF levothyroxine [Synthroid] 150 mcg tablet 150 mcg PO QDAY metoprolol succinate 50 mg tablet extended release 24 hr 50 mg PO QPM fluticasone propion-salmeterol 250-50 mcg/dose blister with device inhalation BID fluticasone propion-salmeterol [Advair HFA] 230-21 mcg/actuation HFA aerosol inhaler 2 inh inhalation BID Qty: 1 11RF hydrochlorothiazide 25 MG tablet 25 mg PO DAILY Patient Comments: bp ipratropium-albuterol 3 ML solution for nebulization 3 ml INHALATION Q4H PRN PRN (Reason: Sob &/Or Wheezing) Primary Care Provider: Yovany Bahena Referrals: Yovany Bahena PA-C [Primary Care Provider] - 1 Week Print Language: Grenadian Disposition Disposition: Home, Self Care What to do if you have Problems For any increased pain, shortness of breath, bleeding, nausea or vomiting, chestpain, or any unexpected problems, contact your Primary Care Provider. Call [facility] ([phone]) or report to the closest Emergency Room. Call 911 if necessary. 02/27/251938 <Electronically signed by Des Avila MD> Cosigner Signature (if applicable): CC: LORNA Bahena ~ Signed [facility] Work Phone: 1(192) 294-428904-15-2025 Evaluation note* Diagnosis Onset Date Resolution Status Admit Date Asthma-chronic obstructive pulmonary disease overlap syndrome chronic February 13, 2025 2:03pm Obesity chronic February 13 2:03pm [facility] Work Phone: 1(969) 255-966104-15-2025 Evaluation note* Diagnosis Onset Date Resolution Status Admit Date Asthma-chronic obstructive pulmonary disease overlap syndrome chronic February 13, 2025 2:03pm Obesity chronic February 13 2:03pm Carotid stenosis, bilateral chronic March 01, 2025 9:47am Carotid stenosis, bilateral chronic March 05, 2025 12:21pm [facility] Work Phone: 1(577) 572-573507-06-2023 Evaluation + Plan noteExtracted from: Title:History and Physical Author:WILLIAM SCOTT MD Date:05/06/23 Assessment: 1. Positive stress test 2. Chest pain 3. Hypertension 4. Obesity 5. Graves' disease 6. Anxiety 7. Asthma Plan: 1. Patient presents in the cardiac unit today for cardiac catheterization. Risk and benefits of the procedure were discussed with the patient as well as at bedside prior to the procedure and they in agreement to proceed. We will proceed today with left heart cath and angiography. Future Appointments Appointment Date:06/23/2023 01:45:00 PM Scheduled Provider: Location:[facility] Appointment Type:CV OV Hospital Follow Up [facility] 07-06-2023 Hospital Discharge instructions Patient Education 05/06/2023 10:28:19 3- Heart Cath/PCI radial (08/2018) HEART CATHETERIZATION/PCI (radial) Discharge Instructions DIET Drink plenty of fluids for the next 48 hours to help your kidneys flush the heart cath dye out of your system ACTIVITY For the next 48 hours: Do not deep bend the wrist Do not lift, push, or pull anything over 5 pounds for 5 days Do not use the hand/arm to support your weight when rising from a chair or bed Do not drive For the next 7 days: Do not submerse your procedure site in water Do not swim, wash dishes, or take tub baths You may write, eat, type, and shower WOUND CARE Keep a Band-Aid on your procedure site for the next 3-4 days after removing the original dressing Wednesday late morning Change the Band-Aid daily or if it gets wet/soiled AFTER YOU GO HOME, CALL YOUR DOCTOR FOR: Any increase in bruising or tenderness from the procedure site Any redness, pus, or other signs of infection at the site A temperature above 100.5 Severe pain at the site DIAL 911 AND RETURN TO THE HOSPITAL FOR: Any bleeding from the procedure site. The site may be bruised or tender, but it should not be bleeding at any time. If your site begins to bleed, hold firm pressure on it and dial 911 to return to the hospital Any increase in swelling at the procedure site. An increase in swelling could mean the area is bleeding under the skin. Hold firm pressure to the site and dial 911 to return to the hospital Document Released: 10/18/2006 Document Revised: 10/04/2013 Document Reviewed: 10/19/2014 ExitCare Patient Information 2015 [place]. This information is not intended to replace advicegiven to you by your health care provider. Make sure you discuss any questions you have with your health care provider. 05/06/2023 10:28:01 Moderate Conscious Sedation, Adult, Care After Moderate Conscious Sedation, Adult, Care After These instructions provide you with information about caring for yourself after your procedure. Your health care provider may also give you more specific instructions. Your treatment has been plannedaccording to current medical practices, but problems sometimes occur. Call your health care provider if you have any problems or questions after your procedure. What can I expect after the procedure? After your procedure, it is common: To feel sleepy for several hours. To feel clumsy and have poor balance for several hours. To have poor judgment for several hours. To vomit if you eat too soon. Follow these instructions at home: For at least 24 hours after the procedure: Do not: ?Participate in activities where you could fall or become injured. ?Drive. ?Use heavy machinery. ?Drink alcohol. ?Take sleeping pills or medicines that cause drowsiness. ?Make important decisions or sign legal documents. ?Take care of children on your own. Rest. Eating and drinking Follow the diet recommended by your health care provider. If you vomit: ?Drink water, juice, or soup when you can drink without vomiting. ?Make sure you have little or no nausea before eating solid foods. General instructions Have a responsible adult stay with you until you are awake and alert. Take gkyx-xeg-wtgygqa and prescription medicines only as told by your health care provider. If you smoke, do not smoke without supervision. Keep all follow-up visits as told by your health care provider. This is important. Contact a health care provider if: You keep feeling nauseous or you keep vomiting. You feel light-headed. You develop a rash. You have a fever. Get help right away if: You have trouble breathing. This information is not intended to replace advice given to you by your health care provider. Make sure you discuss any questions you have with your health care provider. Document Released: 08/08/2014 Document Revised: 09/30/2018 Document Reviewed: 02/06/2017 [email or web address] Patient Education 2020 [employer]. Follow Up Care 05/05/2023 09:44:54 With:IGOR MONTANO MD Address: [address] [place] [address] [address] [place], [place] [id number]- When:06/23/2023 13:45:00 [facility] 07-06-2023 Summary of episode note Discharge Instructions Thank you for allowing [facility] to assist you with your healthcare needs. The following is importantdischarge information regarding your hospital visit. Your Care Team YOVANY BAHENA PA-C What to do next Scheduled Follow-Up Appointments [facility] 06/23/2023 01:45 PM EDT [facility] Follow Up Appointments Follow Up with IGOR MONTANO MD When 06/23/2023 01:45 PM EDT Where: [address] [place] [address] [address] [place] [address]- The Following Activity and Diet Have Been Ordered for You Discharge Activity - Ordered -- Lifting Restricted less than 5 pounds, Follow the post-operative/post-procedure activity instructions provided by your physician's office., 05/06/23 9:29:00 EDT Discharge Diet - Ordered -- Follow the post-operative/post-procedure diet instructions provided by your physician's office.,05/06/23 9:29:00 EDT Allergies NKA Medications Please ask your primary doctor or pharmacist before taking any other medication not listed, including over the counter drugs, herbal medications, vitamins and or supplements as they may interact withyour home medications. What How Much When Instructions Last Dose New atorvastatin (Lipitor 10 mg oral tablet) 1 tab(s) by mouth Once a day Refills: 5 Pickup at [facility] Unchanged aspirin 81 Milligram by mouth Every day Unchanged cetirizine 10 Milligram by mouth Once a day Unchanged cyanocobalamin (Vitamin B12) by mouth Once a day Takes 2 gummies Unchanged fluticasone-salmeterol (Advair Diskus 250 mcg-50 mcg inhalation powder) 2 puff(s) by inhalation Two (2) times a day Unchanged hydroCHLOROthiazide (hydroCHLOROthiazide 25 mg oral tablet) 1 tab(s) by mouth Once a day Unchanged levothyroxine (Synthroid) 175 Microgram by mouth Every Wed / / Wed / / Wed and Wednesday Takes Wednesday-Wednesday Unchanged metoprolol (metoprolol succinate 25 mg oral TABLET extended release) 1 tab(s) by mouth Once a day Do not crush or chew (controlled release) Unchanged multivitamin (Multivitamin) by mouth Every day Takes 2 gummies Pharmacy Information [facility]: [id number] [place], [place] [phone] Please take this list to your next doctor s visit. Bring all medications you take, including over the counter medications, herbals and other supplements with you to your doctor s visit. Patients and families are reminded to discard old lists and to update any records with all medication providers or retail pharmacies. Education Materials HEART CATHETERIZATION/PCI (radial) Discharge Instructions DIET Drink plenty of fluids for the next 48 hours to help your kidneys flush the heart cath dye out of your system ACTIVITY For the next 48 hours: Do not deep bend the wrist Do not lift, push, or pull anything over 5 pounds for 5 days Do not use the hand/arm to support your weight when rising from a chair or bed Do not drive For the next 7 days: Do not submerse your procedure site in water Do not swim, wash dishes, or take tub baths You may write, eat, type, and shower WOUND CARE Keep a Band-Aid on your procedure site for the next 3-4 days after removing the original dressing Wednesday late morning Change the Band-Aid daily or if it gets wet/soiled AFTER YOU GO HOME, CALL YOUR DOCTOR FOR: Any increase in bruising or tenderness from the procedure site Any redness, pus, or other signs of infection at the site A temperature above 100.5 Severe pain at the site DIAL 911 AND RETURN TO THE HOSPITAL FOR: Any bleeding from the procedure site. The site may be bruised or tender, but it should not be bleeding at any time. If your site begins to bleed, hold firm pressure on it and dial 911 to return to the hospital Any increase in swelling at the procedure site. An increase in swelling could mean the area is bleeding under the skin. Hold firm pressure to the site and dial 911 to return to the hospital Document Released: 10/18/2006 Document Revised: 10/04/2013 Document Reviewed: 10/19/2014 ExitCare Patient Information 2015 [place]. This information is not intended to replace advicegiven to you by your health care provider. Make sure you discuss any questions you have with your health care provider. Moderate Conscious Sedation, Adult, Care After These instructions provide you with information about caring for yourself after your procedure. Your health care provider may also give you more specific instructions. Your treatment has been plannedaccording to current medical practices, but problems sometimes occur. Call your health care provider if you have any problems or questions after your procedure. What can I expect after the procedure? After your procedure, it is common: To feel sleepy for several hours. To feel clumsy and have poor balance for several hours. To have poor judgment for several hours. To vomit if you eat too soon. Follow these instructions at home: For at least 24 hours after the procedure: Do not: ? Participate in activities where you could fall or become injured. ? Drive. ? Use heavy machinery. ? Drink alcohol. ? Take sleeping pills or medicines that cause drowsiness. ? Make important decisions or sign legal documents. ? Take care of children on your own. Rest. Eating and drinking Follow the diet recommended by your health care provider. If you vomit: ? Drink water, juice, or soup when you can drink without vomiting. ? Make sure you have little or no nausea before eating solid foods. General instructions Have a responsible adult stay with you until you are awake and alert. Take cjhh-tkg-jexmxzx and prescription medicines only as told by your health care provider. If you smoke, do not smoke without supervision. Keep all follow-up visits as told by your health care provider. This is important. Contact a health care provider if: You keep feeling nauseous or you keep vomiting. You feel light-headed. You develop a rash. You have a fever. Get help right away if: You have trouble breathing. This information is not intended to replace advice given to you by your health care provider. Make sure you discuss any questions you have with your health care provider. Document Released: 08/08/2014 Document Revised: 09/30/2018 Document Reviewed: 02/06/2017 [email or web address] Patient Education 2020 [employer]. Additional Information VACCINATE! IT SAVES LIVES! Members of the community who have not yet received the COVID-19 vaccine and would like to receive it can visit one of [facility] vaccine clinics. There are many vaccine clinic locations within the [facility]. For locations and available times, please visit https://gettheshot.coronavirus.[place].gov/. It is important to note that some COVID mobile vaccine clinics are held outdoors and may be canceled in rainy or stormy conditions. To learn more about pediatric vaccinations (ages 5-11), we invite you to visit the [facility] webpage. [email or web address].[email or web address]/[email or web address] [email or web address] learn more about the COVID-19 vaccine, we invite you to visit the CDC website for a list of frequently asked questions.https://www.cdc.gov/coronavirus/2019-ncov/vaccines/faq.html [employer] Patient Portal Access Instructions: Stay connected with your healthcare team and access your personal medical information anytime with the [employer] Patient Portal. Please follow the directions below to create your [employer] account: 1.Access the email account you provided upon registration to the hospital/physician office.2.Look for an invitation email from [facility].3.Open the email and access the invitation link: AcceptInvitation to [employer]4.Fill in the required pedro to create your account. To access your account, visit [email or web address]. Click the blue button labeled Access Patient Portal and then log in with the username and password that you created in the steps above. You will be able to view your test results, lab results, a summary of your visits, upcoming appointments and more. There is also a convenient messaging option where you can send secure messages to your p rovider. In addition, you will have the ability to download any documents or summaries to your computer and/or send the information securely to a physician. Remember that your healthcare information is confidential, so carefully consider who you will allowto register on the [facility] [employer] Patient Portal for access to your information. You can also access the [facility] Patient Portal on the [facility] isa. Simply click on Patient Portal and then log into your account. If you would like to receive a full copy of your medical records, please contact the [facility] Medical Records Department by calling [phone], Wednesday through Wednesday between 8 a.m. and 4:30 p.m. HOW TO SAFELY DISPOSE OF PRESCRIPTION MEDICATIONS Please use one of the following methods to safely dispose of your unused medications. 1.Use a drug disposal kit: the drug disposal pouch allows you to safely discard your old and unuseddrugs. Ask your nurse to give you one when you are discharged.2.Visit a local take-back location: Many local pharmacies and police departments have programs that collect old and unwanted prescriptiondrugs. Call your local pharmacy or go to http://TeamSupport.FiTeq/8U1Js3i to find one close to you.3.Make use of household items: Use cat litter or old coffee grounds to dispose medications if other options arenot available. Mix your drugs with these household products, seal them in an airtight container andthrow it into the garbage. Call [facility]: [phone] to be sure your drugs can be disposed of in this way. Some medicines may require a different approach.4.Never flush your medications down the toilet. IF YOU HAVE BEEN PRESCRIBED AN OPIOID FOR PAIN If you have been prescribed an opioid (such as hydrocodone, oxycodone or morphine), it is critical to understand the possible side effects and risks of opioid pain medications. Even when taken as directed, opioids can have several side effects including: Tolerance, meaning you might need to take more of a medication for the same pain relief. Nausea, vomiting and/or constipation. Sleepiness, dizziness, dry mouth, confusion, depression or itching. Physical dependence, meaning you have withdrawal symptoms when a medication is stopped, can develop within a few days. KNOW YOUR RESPONSIBILITIES It is important to know exactly how much and how often to take the opioid pain medications you are prescribed. Never take opioids in higher amounts or more often than prescribed. Do not combine opioids with alcohol or other drugs that cause drowsiness, such as benzodiazepines, also known as benzos, including diazepam and alprazolam, muscle relaxants or sleep aids. Never sell or share prescription opioids. This is illegal. Store opioids in a secure place and out of reach of others (including children, family, friends and visitors). The last page of this document has been signed and retained as a CHART COPY. Signatures Patient Education Materials 3- Heart Cath/PCI radial (08/2018) Moderate Conscious Sedation, Adult, Care After Medication Leaflets My discharge plan and instructions have been reviewed and explained to me and I,NOBLE WILDE understand my current condition and have read and understand these discharge instructions. I have received a written copy of the plan/instructions. If I have questions, I am aware that I should contact my doctor. 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 Mild coronary artery disease 2. False positive stress test 3. Chest pain 4. Obesity 5. Anxiety 6. Graves' disease 7. Asthma Hospital Course Patient is a 73-year-old female who presents to the same-day cardiac unit for cardiac catheterization. She underwent cardiac catheterization revealed normal intracardiac filling pressures. Angiography revealed mild coronary disease involving the mid left circumflex artery LV treated medically. She is on aspirin 1 mg daily which be continued she will be started on Lipitor 10 mg daily which we can titrated up in the outpatient setting as she tolerates. Otherwise she tolerated procedure well without complication and she will be discharged back to her human service specialist for further evaluation and management. Allergies NKA Consults No qualifying data available. Objective Vitals and Measurements T: 36.7 C (Oral) HR: 70(Apical) RR: 18 BP: 181/70 SpO2: 99% HT: 162.6 cm WT: 87.8 kg BMI: 33.21 BMI: 33.21 Weight Dosing Weight: 87.8 kg (05/06/23) Code Status No qualifying data available. Admission Date May 06, 2023 Discharge Date May 06, 2023 Patient Instructions Please keep all follow-up appointments. Please take all medications as prescribed. Please return to medical care if your condition worsens or changes. Lifting restriction for 7 days. No driving for 48 hrs. No bathing for 1 week. May shower. Medications New Prescription atorvastatin (Lipitor 10 mg oral tablet)1 tab(s) by mouth once a day. Refills: 5. Unchanged [id number] Milligram by mouth every day. Milligram by mouth once a day. cyanocobalamin (Vitamin B12)by mouth once a day. Takes 2 gummies. fluticasone-salmeterol (Advair Diskus 250 mcg-50 mcg inhalation powder)2 puff(s) by inhalation two (2) times a day. hydroCHLOROthiazide (hydroCHLOROthiazide 25 mg oral tablet)1 tab(s) by mouth once a day. levothyroxine (Synthroid)175 Microgram by mouth every Wed / / Wed / / Wed and Wednesday. Takes Wednesday-Wednesday. metoprolol (metoprolol succinate 25 mg oral TABLET extended release)1 tab(s) by mouth once a day. Do not crush or chew (controlled release). multivitamin (Multivitamin)by mouth every day. Takes 2 gummies. Follow Up Follow Up with IGOR MONTANO MD When 06/23/2023 01:45 PM EDT Where: [address] [facility] [place] [address]- Follow Up Appointments No qualifying data available. Follow Up Labs/Studies Discharge Labs No Follow-up Labs Discharge Studies No Follow-up Studies Discharge Diet Discharge Diet - Ordered -- Follow the post-operative/post-procedure diet instructions provided by your physician's office.,05/06/23 9:29:00 EDT Discharge Activity Discharge Activity - Ordered -- Lifting Restricted less than 5 pounds, Follow the post-operative/post-procedure activity instructions provided by your physician's office., 05/06/23 9:29:00 EDT Condition on Discharge Stable Readmission Risk/Palliative Score No qualifying data available. Discharge Disposition Home with follow-up Digitally Signed by WILLIAM SCOTT MD on 05/06/2023 09:35 AM [facility] [id number] History and physical note Date of Service May 06, 2023 Chief Complaint Chest pain History of Present Illness Patient is a 73-year-old female history of Hypertension, Graves' disease, asthma, anxiety she initially presented to [facility] on 05/02/2023 for an episode of chest pain, diaphoresis and anxiety. She was worked up there troponins remain negative there is no electrocardiographic changes and she was scheduled for electrocardiogram stress test. Her EKG stress test was positive for ST depressions. She was started on IV heparin she was kept in the hospital but due to bed shortage she eventually was discharged home and was scheduled in the outpatient same-day cardiac unit today for cardiac catheterization. Review of Systems In reference HPI all other review of systems negative Physical Exam Vitals and Measurements T: 36.7 C (Oral) HR: 70(Apical) RR: 18 BP: 181/70 SpO2: 99% HT: 162.6 cm WT: 87.8 kg BMI: 33.21 BMI: 33.21 Weight Dosing Weight: 87.8 kg (05/06/23) General: Patient is alert and oriented x3. no acute distress. HEENT: Pupils equal and reactive. Moist mucous membranes. Neck: Neck supple. Skin: Skin is warm well perfused. Respiratory: Clear to auscultation bilaterally. Cardia vascular: Regular rate and rhythm. No appreciable murmur. No lower extremity edema. No JVD. Abdomen: Abdomen soft nontender rebound or guarding. Neurological: Cranial nerves are intact. Motors all extremities. Lab Results 05/06 07:25 Protime: 10.5 PT International Ratio: 0.9 Assessment/Plan Assessment: 1. Positive stress test 2. Chest pain 3. Hypertension 4. Obesity 5. Graves' disease 6. Anxiety 7. Asthma Plan: 1. Patient presents in the cardiac unit today for cardiac catheterization. Risk and benefits of theprocedure were discussed with the patient as well as at bedside prior to the procedure and they in agreement to proceed. We will proceed today with left heart cath and angiography. Problem List/Past Medical History Ongoing No qualifying data Historical No qualifying data Procedure/Surgical History Kidney calculus: 11/01/19 Graves disease Asthma Hypertension Hypothyroid Medications Home Medications (8) Active Advair Diskus 250 mcg-50 mcg inhalation powder 2 puff(s), Inhalation, BID aspirin 81 mg, Oral, Daily cetirizine 10 mg, Oral, qDay hydroCHLOROthiazide 25 mg oral tablet 25 mg = 1 tab(s), Oral, qDay metoprolol succinate 25 mg oral TABLET extended release 25 mg = 1 tab(s), Oral, qDay Multivitamin , Oral, Daily Synthroid 175 mcg, Oral, Wed//Wed//Wed/Sat Vitamin B12 , Oral, qDay Allergies NKA Social History Alcohol Use: Never., 05/06/2023 Home/Environment Domestic Concerns: None. Living situation: Home/Independent. Current Home Treatments Blood Pressuremonitoring. Professional Skilled Services or Special Community Resources None., 05/06/2023 Nutrition/Health Type of diet: Regular. Appetite Excellent. Eating Difficulties None., 05/06/2023 Sexual Self described orientation: Straight or heterosexual., 05/06/2023 Substance Abuse Use: Never., 05/06/2023 Tobacco Nicotine Use: Former smoker, quit more than 30 days ago. Type: Cigarettes., 05/06/2023 Family History Alcohol abuse: Father and Sister. Asthma: Sister. Cancer: Sister and Brother. Diabetes: Grandparent. Hypertension: Mother, Father and Sister. Immunizations No qualifying data available. Code Status No qualifying data available. Digitally Signed by WILLIAM SCOTT MD on 05/06/2023 09:29 AM [facility] CenterEvaluation noteNo assessment information availableWSelect Medical Special[facility] Work Phone: Hospital course Narrative No data available for this section [facility] Reason for referral (narrative)No reason for referral information availableWSelect Medical Special[facility] Work Phone: Summary Purpose Family History No Family History Records Found Relationship Condition Age at Onset Recorded Date/T enrrique father Cardiac disease Unknown Asthma Unknown mother Coronary artery disease Unknown sister Peripheral arterial disease Unknown Malignant neoplasm Unknown Diabetes mellitus Unknown grandfather Diabetes mellitus Unknown Leukemia Unknown Advance Directives No Advanced Directives Records Found Advance Directive Response Recorded Date/ Time Living Will Yes August 03 12:17am Power of Binding [place] Yes August 03 12:17am Advance Directive Response Recorded Date/ Time Living Will Yes August 03 12:17am Do you have a Healthcare Power of Binding [place]? Yes August 03, 2020 12:17am Do you have a Healthcare Power of Binding [place]? No February 27, 2025 6:38pm Chief Complaint and Reason for Visit Chief Complaint PAIN IN LEFT WRIST Chief Complaint Admit Date 1 Y FU February 13, 2025 2:0 3pm hypertension February 27, 2025 5:5 3pm Reason for Visit Admit Date Asthma-chronic obstructive pulmonary dis ease overlap syndrome February 13, 2025 2:03pm Obesity February 13, 2025 2:0 3pm Chief Complaint Admit Date 1 Y FU February 13, 2025 2:0 3pm hypertension February 27, 2025 5:5 3pm B/L Carotid Bruit March 01, 2025 9:47am Occlusion and stenosis of bilateral bean tid arteri March 02, 2025 8:44am Discuss CTA March 05, 2025 12:21p m Reason for Visit Admit Date Asthma-chronic obstructive pulmonary dis ease overlap syndrome February 13, 2025 2:03pm Obesity February 13, 2025 2:0 3pm Carotid stenosis, bilateral March 01 9:47am Carotid stenosis, bilateral March 05 12:21pm Additional Source Comments INFORMATION SOURCE (unrecogn ized section and content) DATE CREATED AUTHOR 09/11/2020 [facility] DATE CREATED AUTHOR AUTHOR'S ORGANIZ ATION 05/12/2023 [facility] ([place]) DATE CREATED AUTHOR AUTHOR'S ORGANIZ ATION 03/06/2025 [facility] DATE CREATED AUTHOR AUTHOR'S ORGANIZ ATION 04/07/2025 [facility] Care Teams (unrecognized sec tion and content) Team Status: Active Member Role Status Dates Yovany Alexandria PA, PA-C Family Provider Active Yovany Bahena PA, PA-C Primary Care Provider Active Team Status: Inactive Member Role Status Dates Yovany Bahena PA, PA-C Primary Care Provider Active Dr. Micah Loza MD Attending Provider, Referring Provi sandor Active Team Status: Active Member Role Status Dates Yovany Bahena PA, PA-C Primary Care Provider Active Team Status: Inactive Member Role Status Dates Yovany Bahena PA, PA-C Primary Care Provider Active Start: February 13, 2025 End: February 13, 2025 Yovany Bahena PA, PA-C Referring Provider Active Start: February 13, 2025 End: February 13, 2025 Tatiana Rogel PARIMUTUEL CLERK, PARIMUTUEL CLERK-C Attending Provider Active Start: February 13, 2025 End: February 13, 2025 Team Status: Inactive Member Role Status Dates Yovany Bahena PA, PA-C Primary Care Provider Active Start: February 27, 2025 End: February 27, 2025 Dr. Des Avila MD Emergency Provider Active Sta rt: February 27, 2025 End: February 27, 2025 Team Status: Inactive Member Role Status Dates Yovany Bahena PA, PA-C Primary Care Provider Active Start: February 27, 2025 End: February 27, 2025 Dr. Des Avila MD Attending Provider Active Sta rt: February 27, 2025 End: February 27, 2025 Dr. Des Avila MD Emergency Provider Active Sta rt: February 27, 2025 End: February 27, 2025 Team Status: Inactive Member Role Status Dates Yovany Bahena PA, PA-C Primary Care Provider Active Start: March 01, 2025 End: March 01, 2025 Yovany Bahena PA, PA-C Referring Provider Active Start: March 01, 2025 End: March 01, 2025 KANNAN Bermudez Attending Provider Active Star t: March 01, 2025 End: March 01, 2025 Team Status: Inactive Member Role Status Dates Yovany Bahena PA, PA-C Primary Care Provider Active Start: March 02, 2025 End: March 02, 2025 KANNAN Bermudez Attending Provider Active Star t: March 02, 2025 End: March 02, 2025 KANNAN Bermudez Referring Provider Active Star t: March 02, 2025 End: March 02, 2025 Team Status: Inactive Member Role Status Dates Yovany BRUNNER PA-C Primary Care Provider Active Start: March 05, 2025 End: March 05, 2025 Yovany BRUNNER PA-C Referring Provider Active Start: March 05, 2025 End: March 05, 2025 Dr. Papo Sumner MD Attending Provider Active S tart: March 05, 2025 End: March 05, 2025 Goals (unrecognized section and content) Goals may be documented in a n alternate section No data available for this sectionGoals may be documented in an alternate sectionGoals may be documented in an alternate section FOR RECORDS PERTAINING TO PATIENTS WHO ARE OR HAVE BEEN ENROLLED IN A CHEMICAL DEPENDENCY/SUBSTANCEABUSE PROGRAM, SOME INFORMATION MAY BE OMITTED. This clinical summary was aggregated from multiple sources. Caution should be exercised in using it in the provision of clinical care. This summary normalizes information from multiple sources, and as a consequence, information in this document may materially change the coding, format and clinical context of patient data. In addition, data may be omitted in some cases. CLINICAL DECISIONS SHOULD BE BASED ON THE PRIMARY CLINICAL RECORDS. [employer] provides no warranty or guarantee of the accuracy or completeness of information in this document.
[2025-04-09] MEDS: Lactated Ringers 1,000 ML 15 ML IV ×2 (06:00→12:03)
--- NOTE | 2025-04-09 06:41 | PCM.PRE.AN2 ---
ASA Classification* ASA Classification ASA Classification: 3 Assessment & Plan Anesthesia* Anesthesia Assessment Anesthesia Assessment: Discussed sedation and/or anesthesia options, risks, benefits, and alternatives with patient/parents/legal guardian/POA. Questions invited. The patient/parents/legal guardian/POA seems to understand and agrees to proceed with anesthesia plan. Reviewed the physical assessment, medical history, allergy history and patient home medications list prior to surgery/procedure/anesthetic and documented any changes. Performed airway and anesthesia risk assessments. Anesthesia Type Anesthesia Type: General ([place] pre op) Anesthesia Focused Assessment* Temperature: 98.1 F Pulse Rate: 71 Blood Pressure: 183/72 Respiratory Rate: 18 Pulse Ox: 98 Airway Assessment Mouth opens: >3 cm Mallampati Score: II Labs Anesthesia Preop lab: CBC WBC 9.2 K/mm3 (4.4-11.0) 03/21/25 11:03/21/25 RBC 4.84 M/mm3 (4.2-5.4) 03/21/25 11:03/21/25 Hgb 14.7 g/dL (12.0-15.0) 03/21/25 11:03/21/25 Hct 44.7 % (37-47) 03/21/25 11:03/21/25 Plt Count 358 K/mm3 (150-450) 03/21/25 11:27 03/21/25 CHEMISTRY Potassium 3.8 mmol/L (3.3-5.1) 03/21/25 11:03/21/25 Sodium 142 mmol/L (133-145) 03/21/25 11:03/21/25 BUN 24 mg/dL (4-19) H 03/21/25 11:03/21/25 Creatinine 0.83 mg/dL (0.70-1.20) 03/21/25 11:03/21/25 Glucose 99 mg/dL (70-99) 03/21/25 11:03/21/25 POC Glucose 81 mg/dL (70-110) 03/19/19 23:03 03/19/19 TSH 0.576 uIU/mL (0.300-4.200) 03/21/25 11:27 03/21/25 COAG PT 12.1 SECONDS (11.7-14.9) 03/20/19 04:05 03/20/19 Pre-Assessment Diagnosis/Proposed Procedure Planned Operative Procedure(s): LEFT CAROTID ENARTECTOMY Anesthesia History 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 When Was Last Pacemaker Check QUESTION #4 FULL TEXT: You/Your Family Experience fever (hyperthermia) with Anesthesia Last Oral Intake Last Oral intake: Last Oral Intake NPO since 04:30 04/09/25 06:20 Meds taken in AM with sips of Yes 04/09/25 06:20 water? Meds patient instructed to see med rec 04/09/25 06:20 take am of surgery PONV PONV - water filtration technician: PONV - water filtration technician Female Yes 03/20/25 15:02 HX of Motion Sickness Yes 03/20/25 15:02 HX of N/V After Surgery Yes 03/20/25 15:02 Non-Smoker Yes 03/20/25 15:02 Duration of Surgery greater No 03/20/25 15:02 than 60 minutes Number of Risk Factors 4 03/20/25 15:02 PONV Score Severe Risk 03/20/25 15:02 Height & Weight Height & Weight: Anesthesia: Height & Weight Height 5 ft 4 in 04/09/25 06:20 Weight: 81 kg 04/09/25 06:20 Body Mass Index (BMI) 30.6 04/09/25 06:20 Respiratory Assessment Respiratory Assessment - water filtration technician: Respiratory Tract Infection Hx - water filtration technician Hx Respiratory Tract Infection No 03/20/25 15:02 STOP Sleep Apnea STOP Sleep Apnea - water filtration technician: STOP Sleep Apnea - water filtration technician Hx Hypertension Yes 03/20/25 15:02 Hx Sleep Apnea No 03/20/25 15:02 CPAP BIPAP Do you snore loudly (louder No 03/20/25 15:02 than talking or can be heard Do you often feel tired/ No 03/20/25 15:02 fatigued/ sleepy during daytime? Has anyone observed you stop No 03/20/25 15:02 breathing during sleep? STOP Results Negative 03/20/25 15:02 QUESTION #5 FULL TEXT : Do you snore loudly (louder than talking or can be heard through closed doors)? Tobacco Use History Tobacco Use History - water filtration technician: Tobacco Use History - water filtration technician Tobacco Use Smoking Status Former smoker 03/20/25 15:02 Hx Tobacco Use No 03/20/25 15:02 Years Smoking Packs Smoked per Day Smoking Cessation Date was Yes - quit smoking within 15 03/20/25 15:02 within the last 15 years years Hx Smoking Cessation Date Hx Smoking Cessation No 03/20/25 15:02 Counseling Hematologic Medial History Hematologic Hx - water filtration technician: Hematologic Medical Hx - client liaison Hx of Blood Transfusion No 03/20/25 15:02 Hx of Transfusion in last 3 No 03/20/25 15:02 Months Date of Last Transfusion (if within last 3 months) Ever experience any problems No 03/20/25 15:02 with transfusion(s)? Specify any problems Hx of Preganancy in last 3 No 03/20/25 15:02 Months Nurse Filling Out Transfusion VLEHMAN 03/20/25 15:02 & Questions: Date: 03/20/25 03/20/25 15:02 Time: 15:13 03/20/25 15:02 Patient unable to answer at this time (ie. confused, unrespo /Reproduction History /Reproductive History - water filtration technician: /Reproductive Hx- water filtration technician Hx Now No 03/20/25 15:02 Gestational Age (in weeks): EDC: Hx Hx Para Hx Section SAB No 03/20/25 15:02 Active Medications Active Medications: Current Medications Generic Name Dose Route Start Last Admin Trade Name Freq PRN Reason Stop Dose Admin Cefazolin Sodium 2 gm/ Sodium 110 mls @ 150 mls/hr 04/09/25 07:30 Chloride IV 04/09/25 08:13 INTRAOP ONE Lactated Ringer's 1,000 mls @ 15 mls/hr 04/09/25 05:45 04/09/25 06:00 IV 15 mls/hr .Q48H SUJIT Administration PFSH Medical History Wears glasses Post-menopausal Anxiety Thyroid disease Arthritis History of renal disease High cholesterol Easy bruising Gastric reflux History of hiatal hernia Graves disease Former smoker Cardiology follow-up encounter History of echocardiogram History of stress test Hiatal hernia Pneumonia COPD (chronic obstructive pulmonary disease) Bronchitis Chest pain, unspecified Asthma HTN (hypertension) Cough Shortness of breath Home Medications ?Medication ?Instructions ?Recorded ?Last Taken ?Type hydrochlorothiazide 25 mg tablet 25 mg PO DAILY BP 08/02/17 04/08/25 07:00 History ipratropium 0.5 mg-albuterol 3 mg 3 ml inhalation Q4H PRN PRN Sob 03/13/19 03/19/19 History (2.5 mg base)/3 mL nebulization &/Or Wheezing soln albuterol sulfate 90 mcg/actuation 2 puff inhalation Q4H PRN 08/24/23 Unknown Rx aerosol inhaler (Ventolin HFA) shortness of breath or wheezing #8.5 grams cetirizine 10 mg tablet (Zyrtec) 10 mg PO DAILY PRN allergy symptoms 08/24/23 04/08/25 07:00 History naproxen 500 mg tablet 500 mg PO BID PRN pain 08/24/23 04/07/25 12:00 History levothyroxine 150 mcg tablet 150 mcg PO QDAY THYROID 02/14/24 04/09/25 04:30 History (Synthroid) fluticasone propionate 230 2 inh inhalation BID ASTHMA #1 ea 02/13/25 04/09/25 04:30 Rx mcg-salmeterol 21 mcg/actuation HFA inhaler (Advair HFA) clonidine HCl 0.1 mg tablet 0.1 mg PO BID HTN #60 tabs 02/27/25 04/09/25 04:30 Rx aspirin 81 mg tablet,delayed 81 mg PO DAILY SUPPLEMENT #360 tabs 03/01/25 04/09/25 04:30 Rx release (Adult Aspirin Regimen) clopidogrel 75 mg tablet (Plavix) 75 mg PO DAILY BLOOD THINNER #30 03/01/25 04/09/25 04:30 Rx tabs metoprolol succinate 50 mg 25 mg PO BID BP 03/01/25 04/09/25 04:30 History tablet,extended release 24 hr budesonide-formoterol HFA 160 2 puff inhalation BID ASTHMA 03/20/25 04/09/25 04:30 History mcg-4.5 mcg/actuation aerosol inhaler montelukast 10 mg tablet 10 mg PO QPM ASTHMA 04/09/25 04/08/25 17:00 History Allergy/AdvReac Type Severity Reaction Status Date / Time shellfish derived Allergy Anaphylaxis Verified 04/09/25 06:16 Iodinated Contrast Media AdvReac Intermediate Rash Verified 04/09/25 06:16 acetaminophen (From [facility]) AdvReac Constipatio Verified 04/09/25 06:16 n hydrocodone (From [facility]) AdvReac Constipatio Verified 04/09/25 06:16 n levofloxacin (From Levaquin) AdvReac GI upset Verified 04/09/25 06:16 losartan AdvReac Abd Verified 04/09/25 06:16 cramps/diarrhea prednisone AdvReac Other Verified 04/09/25 06:16 Family History Father Heart disease Asthma Mother CAD (coronary artery disease) Sister PAD (peripheral artery disease) Cancer Lung Diabetes Grandfather Diabetes Leukemia Surgical History History of bilateral cataract extraction History of cardiac catheterization History of urethral stent Eyelid retraction unspecified eye, unspecified lid History of D&C Social History household members: spouse housing: house pets and animals: Yes pets and animals: dog(s) Smoking Status: Former smoker Tobacco: How many years used: 30 how long ago did patient quit smokin, 1ppd second hand exposure: Yes alcohol intake: never substance use type: does not use Review of Systems (Anesthesia) ROS Narrative System reviewed and no additional complaints, except as documented.
--- NOTE | 2025-04-09 07:25 | PCM.HP.STD ---
[facility] - General General Date of Admission: 04/09/25 HPI Narrative NOBLE WILDE, is a 75 F who presents with asymptomatic left carotid stenosis >70%. She is a candidate for either endart or TCAR and she has opted for the open surgical option. She presents now for left carotid endarterectomy. [facility] Medical History Wears glasses Post-menopausal Anxiety Thyroid disease Arthritis History of renal disease High cholesterol Easy bruising Gastric reflux History of hiatal hernia Graves disease Former smoker Cardiology follow-up encounter History of echocardiogram History of stress test Hiatal hernia Pneumonia COPD (chronic obstructive pulmonary disease) Bronchitis Chest pain, unspecified Asthma HTN (hypertension) Cough Shortness of breath Home Medications ?Medication ?Instructions ?Recorded ?Last Taken ?Type hydrochlorothiazide 25 mg tablet 25 mg PO DAILY BP 08/02/17 04/08/25 07:00 History ipratropium 0.5 mg-albuterol 3 mg 3 ml inhalation Q4H PRN PRN Sob 03/13/19 03/19/19 History (2.5 mg base)/3 mL nebulization &/Or Wheezing soln albuterol sulfate 90 mcg/actuation 2 puff inhalation Q4H PRN 08/24/23 Unknown Rx aerosol inhaler (Ventolin HFA) shortness of breath or wheezing #8.5 grams cetirizine 10 mg tablet (Zyrtec) 10 mg PO DAILY PRN allergy symptoms 08/24/23 04/08/25 07:00 History naproxen 500 mg tablet 500 mg PO BID PRN pain 08/24/23 04/07/25 12:00 History levothyroxine 150 mcg tablet 150 mcg PO QDAY THYROID 02/14/24 04/09/25 04:30 History (Synthroid) fluticasone propionate 230 2 inh inhalation BID ASTHMA #1 ea 02/13/25 04/09/25 04:30 Rx mcg-salmeterol 21 mcg/actuation HFA inhaler (Advair HFA) clonidine HCl 0.1 mg tablet 0.1 mg PO BID HTN #60 tabs 02/27/25 04/09/25 04:30 Rx aspirin 81 mg tablet,delayed 81 mg PO DAILY SUPPLEMENT #360 tabs 03/01/25 04/09/25 04:30 Rx release (Adult Aspirin Regimen) clopidogrel 75 mg tablet (Plavix) 75 mg PO DAILY BLOOD THINNER #30 03/01/25 04/09/25 04:30 Rx tabs metoprolol succinate 50 mg 25 mg PO BID BP 03/01/25 04/09/25 04:30 History tablet,extended release 24 hr budesonide-formoterol HFA 160 2 puff inhalation BID ASTHMA 03/20/25 04/09/25 04:30 History mcg-4.5 mcg/actuation aerosol inhaler montelukast 10 mg tablet 10 mg PO QPM ASTHMA 04/09/25 04/08/25 17:00 History Allergy/AdvReac Type Severity Reaction Status Date / Time shellfish derived Allergy Anaphylaxis Verified 04/09/25 06:16 Iodinated Contrast Media AdvReac Intermediate Rash Verified 04/09/25 06:16 acetaminophen (From [place]) AdvReac Constipatio Verified 04/09/25 06:16 n hydrocodone (From [place]) AdvReac Constipatio Verified 04/09/25 06:16 n levofloxacin (From Levaquin) AdvReac GI upset Verified 04/09/25 06:16 losartan AdvReac Abd Verified 04/09/25 06:16 cramps/diarrhea prednisone AdvReac Other Verified 04/09/25 06:16 Family History Father Heart disease Asthma Mother CAD (coronary artery disease) Sister PAD (peripheral artery disease) Cancer Lung Diabetes Grandfather Diabetes Leukemia Surgical History History of bilateral cataract extraction History of cardiac catheterization History of urethral stent Eyelid retraction unspecified eye, unspecified lid History of D&C Social History household members: spouse housing: house pets and animals: Yes pets and animals: dog(s) Smoking Status: Former smoker Tobacco: How many years used: 30 how long ago did patient quit smokin, 1ppd second hand exposure: Yes alcohol intake: never substance use type: does not use ROS Constitutional Constitutional: Denies chills, fever(s), frequent falls, lethargy or weakness Eyes Eyes: Denies blind spots, change in vision or loss of vision ENT HEENT: Denies bleeding gums, hoarseness or sore throat Cardiovascular Cardiovascular: Denies abdominal pain, bluish discoloration of hand/feet, chest pain with activity, claudication, cold extremities, cyanosis, dyspnea on exertion, erythema on extremities, irregular heart rhythm, leg edema, leg ulcers, numbness in extremities or weakness in extremities Respiratory/Chest Respiratory/Chest: Denies cough, excessive phlegm production, shortness of breath at rest, shortness of breath with exertion or wheezing Gastrointestinal Gastrointestinal: Denies anorexia, change in stool character, constipation, diarrhea, melena or rectal bleeding Genitourinary Genitourinary: Denies dysuria or hematuria Musculoskeletal Musculoskeletal: Denies abnormal gait Integumentary Integumentary: Reports other Details: ; Denies erythema, non-healing lesions or wounds Neurologic Neurologic: Denies abnormal speech, focal weakness, headache(s), loss of vision, numbness, paresthesias or sensory deficit Hematologic/Lymphatic Hematologic/Lymphatic: Denies easy bleeding, easy bruising or lymphadenopathy Vital Signs Vital Signs Vital Signs: 04/09/25 06:20 04/09/25 06:20 04/09/25 06:41 Temperature 98.1 F 98.1 F Temperature Source Temporal Pulse Rate 71 71 Respiratory Rate 18 18 Respiratory Pattern Normal Blood Pressure 183/72 H 183/72 H Blood Pressure Mean 109 Blood Pressure Source Monitor Blood Pressure Position Sitting Blood Pressure Location Right Arm Pulse Ox 98 98 Oxygen Delivery Method Room Air Weight Weight: 178 lb 9.191 oz Body Mass Index (BMI) 30.6 Physical Exam Const alert, oriented x3, no apparent distress and healthy appearing General Appearance: cooperative; Negative for combative or lethargic Orientation / Consciousness: awake Exam Limitations: no limitations HEENT Head and Scalp: normocephalic and atraumatic Eyes EOMs intact bilaterally General Eye: normal appearance of both eyes Neck full ROM General: trachea midline Resp normal respiratory effort and no use of accessory muscles Effort and Inspection: Negative for labored, stridor or audible wheezes Cardio regular rate and regular rhythm Back/Spine Cervical Spine: cervical ROM normal Extremity full ROM, normal capillary refill and no clubbing, cyanosis or edema Skin no rashes or lesions noted and no wounds Neuro oriented x3, CN's II-XII intact bilaterally, no focal motor deficits and no sensory deficits noted Psych thought process normal, cooperative, affect normal, speech normal and activity/motor behavior normal Results Lab / Micro Data 03/21/25 11:27 03/21/25 11:27 Assessment & Plan Assessment/Plan (1) Carotid stenosis, bilateral: PLAN: -left carotid endarterectomy
--- NOTE | 2025-04-09 07:30 | PLAQ_PTH ---
PATIENT: NOBLE WILDE LOC: [facility] U#:[id number] AGE/SX: 75/F ROOM: [facility]06 RE04/09/[address]: Dr. Papo Sumner MD : 1950 BED: 1 DIS: 04/13/2025 SPEC #: [id number] RECD: 04/09/25 11:21 STATUS: JJ DIONISIO #: [id number] KAMALA: 04/09/25 07:[address]: Papo Sumner DEPT: SURGICAL PATHOLOGY RECD BY: Abby Hurley ENTERED: 04/09/25 12:06 SP TYPE: PLAQUE SYBIL DR: Amanda Bahena PA-C Tissues: A - PLAQUE Procedures: Decalcification bone/plaque Surgery Specimen Level III HEADER OPERATION: Left carotid endarterectomy PRE-OP DIAGNOSIS: Carotid stenosis, bilateral TISSUE SUBMITTED: A- Left carotid plaque MICROSCOPIC DIAGNOSIS A. Left carotid artery, left endarterectomy: * Partially calcified atheromatous plaque GROSS DESCRIPTION A. Received in formalin labeled with the patient's name and date of . Designated as left carotid plaque is a 3.7 x 1.0 x 0.5 cm louise-yellow calcified plaque. [facility] sections cassettes, following decalcification. [facility] [place] CPT:93376,37867
[2025-04-09] MEDS: Cefazolin 2 GM in 0.9% Normal Saline (100mL Bag) 100 ML IV (08:10)
[2025-04-09 09:12] LABS: ACT Activated Clotting Time 124 sec (74-137)
[2025-04-09 09:12] LABS: ACT Activated Clotting Time 314 sec (74-137)
[2025-04-09 10:28] LABS: ACT Activated Clotting Time 245 sec (74-137)
[2025-04-09] MEDS: Bupivacaine Mpf 0.5% 30 ML VIAL (10:44)
--- NOTE | 2025-04-09 10:47 | PCM.OPRPT ---
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 [place] Worker: Maximo Hill Tasks completed by field assistant: Opening, Closing, Opening & closing, Hemostasis: Tie, Hemostasis: Electrocautery and Retracting Type of Anesthesia: General RN Documented Start/Stop Times: Operation Date: 04/09/25 07:30 Case Time Into Pre-Op 04/09/25 05:35 Out of Pre-Op 04/09/25 07:15 Anesthesia Start 04/09/25 07:30 Into Room 04/09/25 07:30 Procedure Start 04/09/25 08:28 Procedure End 04/09/25 10:50 Anesthesia End 04/09/25 11:02 Out of Room 04/09/25 11:02 Into Recovery 04/09/25 11:05 Out of Recovery 04/09/25 12:39 Procedure Start Time: 08:30 Procedure Stop Time: 10:45 Select all DRAINS/GRAFTS/IMPLANTS that apply: Graft Graft details: bovine pericardial patch Estimated Blood Loss: 50 Specimen collected: Yes Description of specimen(s) removed: plaque Description of surgery: HPI: Patient is a 75-year-old female with asymptomatic bilateral carotid artery stenosis which is severe. She presents now for left carotid endarterectomy with planned staged right carotid endarterectomy at a later date. Description of procedure: Upon obtaining informed consent and verification correct patient procedure site she was taken to the operating where she was placed under general anesthesia. She was then positioned prepped and draped in usual sterile fashion and timeout was performed. Oblique incision was made at the anterior border left sternocleidomastoid and Bovie electrocautery used to dissect down to the subcutaneous tissue to the level of the platysma. The platysma was divided and self-retaining retractors were put in position exposing the anterior border of the sternocleidomastoid. Bovie was then used to mobilize the muscle along with anterior border allowing posterolateral retraction and exposing the carotid sheath. Sharp dissection was then used dissect free the jugular vein with multiple anterior branches including the facial vein identified, ligated with silk ties and divided. The vein was then retracted laterally exposing the carotid vessels. Sharp dissection was used to dissect free the proximal common carotid artery with care taken to identify and protect the vagus nerve which was in his normal anatomic position. The vessel was then dissected free circumferentially and a right angle used to place a vessel loop. Next sharp section was used to dissect free the distal internal carotid artery beyond the palpable and visible plaque with care taken to identify and protect the hypoglossal nerve. The vessel was dissected free circumferentially and a right angle used to place a vessel loop. The patient was then heparinized allowed to circulate for 3 minutes with subsequent heparin dosing based on ACT results. While the heparin was circulating sharp dissection was used to dissect free the external carotid artery and a right angle used to place a vessel loop. The vessel then occluded first the internal followed by the common and the external. A longitudinal arteriotomy was created with an 11 blade on the distal common carotid artery and extended with Guillen scissors onto the internal carotid artery beyond the area of plaque. A 10 [place] shunt was then placed first distally in the internal carotid artery allowed to backbleed before placing proximally in the common carotid artery. The shunt was interrogated with Doppler and found to be patent with low resistance signal. We then performed her endarterectomy with a freer elevator with satisfactory endpoint distally on the internal carotid artery and eversion endarterectomy of the external carotid artery. The distal endpoint was tacked with 7-0 Prolene interrupted sutures and the lumen flushed with heparinized saline to clear of any potential debris. A bovine pericardial patch was then secured in position using a 6-0 Prolene in a running fashion. Prior to completing the suture line the shunt was withdrawn and the vessel was backbled. After completing the suture line the internal carotid artery was allowed to backbleed and the bifurcation then reoccluded at its origin. Clamps were then removed from the external and common carotid artery allowing 10 heartbeats of antegrade flow into the internal carotid artery before reestablishing antegrade flow into the internal carotid artery. Once the clamps were removed satisfactory hemostasis was noted and the vessels were interrogated with Doppler. The internal carotid artery was patent with low resistance signal in the external carotid arteries patent with appropriate signal. Heparin was then reversed with protamine and Hemoblast topical hemostatic applied after which satisfactory stasis was observed. A 19 [place] channel ABIODUN was then placed via stab incision and incision closed with 2-0 Vicryl, 3-0 Vicryl, 4 Monocryl and Dermabond for the skin. At the conclusion of the case the patient was wake from anesthesia moving all extremities to command with cranial nerves intact. She was then taken to the recovery room with anticipate admission to the intensive care unit for hemodynamic and neurologic monitoring. Surgical Findings: see above Complications Complications: No
[2025-04-09] MEDS: Nitro/D5w 25MG/250ML Bottle 25 MG (11:00)
--- NOTE | 2025-04-09 11:11 | PCM.POST.ANE ---
Anesthesia: Postop Eval I Current Vital Signs Temperature: 97.8 F Pulse Rate: 78 Blood Pressure: 187/83 Respiratory Rate: 16 Pulse Ox: 98 Oxygen Delivery Method: Nasal Cannula Oxygen Flow Rate (L/min): 2 Assessment Airway patent: Yes Spontaneous unlabored respirations: Yes Mental status: Awake nausea: No Vomiting: No Anesthesia Complication: No Fluid Hydration Crystalloid volume administer (ml): 1,600 Total IV fluid infused: 1,600 Progress Note Anesthesia document: Postop Eval 1 completed: Yes
[2025-04-09] MEDS: Nitroglycerin Infusion 250 ML 15 MG CONT INF (11:15)
--- NOTE | 2025-04-09 11:47 | POSTOPAN2_ITS ---
Anesthesia Postop Eval I Sum Postop Eval Completion status Anesthesia document: Postop Eval 1 completed: Yes Anesthesia Postop Eval I Summary Anesthesia Postop Eval I Summary: Anesthesia Postop Eval I: Assessment Summary Airway patent Yes 04/09/25 11:12 BUSINESS [email or web address] Spontaneous unlabored Yes 04/09/25 11:12 BUSINESS [email or web address] respirations Mental status Awake 04/09/25 11:12 BUSINESS [email or web address] nausea No 04/09/25 11:12 [email or web address] Vomiting No 04/09/25 11:12 BUSINESS [email or web address] Anesthesia Postop Eval I: Fluid Summary Crystalloid volume administer 1,600 04/09/25 11:12 BUSINESS [email or web address] (ml) Colloids volume administered ( ml) Blood Product volume administered (ml) Total IV fluid infused 1,600 04/09/25 11:12 BUSINESS [email or web address] Anesthesia Postop Eval I: Summary Notes Anesthesia Complication No 04/09/25 11:12 BUSINESS [email or web address] Anesthesia Complication Comment: Post-operative progress note Anesthesia: Postop Eval II Evaluation Mental status: Awake Pain Level: 1 nausea: No Vomiting: No
--- NOTE | 2025-04-09 11:47 | PCM.POSTANE2 ---
Anesthesia Postop Eval I Sum Postop Eval Completion status Anesthesia document: Postop Eval 1 completed: Yes Anesthesia Postop Eval I Summary Anesthesia Postop Eval I Summary: Anesthesia Postop Eval I: Assessment Summary Airway patent Yes 04/09/25 11:12 [email or web address] Spontaneous unlabored Yes 04/09/25 11:12 [email or web address] respirations Mental status Awake 04/09/25 11:12 [email or web address] nausea No 04/09/25 11:12 [email or web address] Vomiting No 04/09/25 11:12 [email or web address] Anesthesia Postop Eval I: Fluid Summary Crystalloid volume administer 1,600 04/09/25 11:12 [email or web address] (ml) Colloids volume administered ( ml) Blood Product volume administered (ml) Total IV fluid infused 1,600 04/09/25 11:12 [email or web address] Anesthesia Postop Eval I: Summary Notes Anesthesia Complication No 04/09/25 11:12 [email or web address] Anesthesia Complication Comment: Post-operative progress note Anesthesia: Postop Eval II Evaluation Mental status: Awake Pain Level: 1 nausea: No Vomiting: No
[2025-04-09] MEDS: Ipratropium/Albuterol Sulfate 3 ML AMPUL.NEB INHALATION (13:51)
[2025-04-09] MEDS: Labetalol 20 MG/4 ML Vial 10 MG IV (13:53)
--- NOTE | 2025-04-09 14:10 | CT_ITS ---
EXAM: STROKE BRAIN/HEAD WITHOUT CONT CLINICAL HISTORY: 75 y/o F with RIGHT FACIAL DROOP. COMPARISON: Same day CTA neck, CTA head and neck 03/02/2025. TECHNIQUE: Routine CT imaging of the head without IV contrast. Additional multiplanar reformats were obtained. Dose reduction techniques were used including intermediate exposure control (AEC),iterative reconstruction technique, and/or mA and/or KV dose adjustments based on patient's size. FINDINGS: No acute intracranial hemorrhage or herniation. Mild scattered supratentorial white matter hypodensities. The timmons-white matter interfaces are maintained. No ventriculomegaly. The orbits, visualized paranasal sinuses and mastoids are unremarkable. No acute calvarial fracture or scalp hematoma. CT/STROKE Brain/Head without Cont IMPRESSION: No acute intracranial finding. Reading Location: [id number]
--- NOTE | 2025-04-09 14:12 | CT_ITS ---
PROCEDURE: CTA NECK W/WO CONTRAST 04/09/2025 REASON FOR EXAM: FACIAL DROOP, left-sided TECHNIQUE: CTA imaging of the neck from the aortic arch to the skull base with intravenous contrast. Multiplanar and multisequence images were obtained. CONTRAST: Isovue 370 VOLUME: 100 mL One or more dose reduction techniques were used (e.g., Automated exposure control, adjustment of the mA and/or kV according to patient size, use of iterative reconstruction technique). RADIATION DOSE SUMMARY: CTDlvol: 50 mGy DLP: 700 mGycm COMPARISON: Same-day CT head, CTA head and neck 03/02/2025. FINDINGS: Status post left carotid endarterectomy with surgical clips and indwelling surgical drain. There is scattered subcutaneous air, compatible with postoperative status. Interval improvement in the prior severe left carotid bulb and ICA stenosis. Unchanged severe stenosis just distal to the right ICA origin, stable since prior examination. The bilateral vertebral arteries are widely patent. The visualized bilateral anterior, middle and posterior cerebral arteries are widely patent. origin of the right STOCKHOLDER. Other findings: Cervical spondylosis and diffuse osseous demineralization. Biapical emphysema and pleural-parenchymal scarring. CT/CTA Neck W/WO Contrast IMPRESSION: 1. Status post left carotid endarterectomy with surgical clips and indwelling s urgical drain. 2. Interval improvement in the prior severe left carotid bulb and ICA stenosis. Unchanged severe stenosis of the right ICA just distal to its origin. 3. No large vessel occlusion is visualized. Reading Location: [id number]
[2025-04-09] MEDS: DiphenhydrAMINE 50 MG/ML Syringe IV (14:41)
[2025-04-09 15:08] LABS: Anion Gap 12 (5-15); BUN 19 mg/dL (4-19); BUN/Creat Ratio 29.1 RATIO (10-20); Calcium,Total 9.1 mg/dL (7.6-11.0); Carbon Dioxide 19.4 mmol/L (21.0-32.0); Chloride 110 mmol/L (98-108); Creatinine, Serum 0.65 mg/dL (0.70-1.20); EST Glomerular Filtration Rate 93 (>60); Estimated Creatinine Clearance 64.66 ml/min (50-250); Glucose 145 mg/dL (70-99); Potassium 3.7 mmol/L (3.3-5.1); Sodium Level 142 mmol/L (133-145)
--- NOTE | 2025-04-09 15:35 | PCM.CONS.GEN ---
Assessment & Plan Assessment/Plan (1) Carotid stenosis, bilateral: PLAN: Plan Patient is a 75-year-old female who presented to [facility] on 04/09/25 for planned left carotid endarterectomy procedure. Medicine consulted postoperatively for medical management. 1. Bilateral carotid stenosis ? Vascular surgery primary. S/p left carotid endarterectomy procedure with Dr. Sumner on 04/09. Tolerated procedure well, no intraoperative complications. Continue aspirin and Plavix. Pain control and further management per vascular surgery. 2. Right-sided facial droop with numbness/tingling, improving ? Vascular surgery primary as above. Developed right-sided facial droop with numbness/tingling postoperatively. CT brain unremarkable and CTA neck unchanged severe stenosis of the right ICA just distal to its origin. Per vascular, most consistent with reperfusion issue that is improving with tighter blood pressure control and elevating head of the bed. Continue blood pressure treatment as noted below. 3. Hypertension ? Hypertensive postoperatively up to the 200s systolic. Per vascular, goal BP is 120-140 systolic. Continue nitroglycerin drip. Resume home clonidine, hydrochlorothiazide and Toprol. 4. Mild hypoxia in setting of asthma/COPD overlap syndrome ? Not on home oxygen. Requiring 2 L nasal cannula postoperatively to maintain appropriate oxygen saturations. Presume secondary to anesthesia and shallow breaths in setting of recent procedure, not in acute exacerbation. Continue home inhalers. Wean supplemental oxygen as able. 5. Hypothyroidism ? Continue home Synthroid. 6. Class I obesity ? BMI 33 on admit. Encouraged weight loss. Complicates hospital course, care and prognosis. 7. Former tobacco abuse ? Encouraged continued cessation. DVT prophylaxis: Lovenox per vascular surgery Total clinical time spent by myself addressing the patient's medical issues, reviewing all the data, and collaborating with patient's care team: 50 minutes. HPI Consult Data Date of Consult: 04/09/25 HPI Narrative Reason for Consultation: Postoperative medical management HPI Narrative: NOBLE WILDE, is a 75 F who presented to [facility] on 04/09/2025 for planned left carotid endarterectomy procedure. Medicine consulted postoperatively for medical management. Patient had procedure done with Dr. Sumner this morning, no intraoperative complications noted. Shortly before leaving the recovery room she developed right facial numbness and right facial droop. She was evaluated by Dr. Sumner for this. She was noted to be hypertensive and on a nitro drip at that time, and Dr. Sumner had a head of the bed raised to 60 degrees and within several minutes her facial droop again improved. He suspected that given the lateralizing neurologic deficit improvement with head elevation and blood pressure control this is most consistent with reperfusion. Obtain CTA head/neck and CT brain for further evaluation and these were unremarkable. I saw the patient at the bedside later this afternoon after she came back from her CT scans. She reported mild right-sided facial numbness, much improved from previous. Very minor right facial droop was noted as well on my exam. She otherwise stated that she had a dull pain in the left neck area where the procedure was done today. She denied any other acute concerns currently. [facility] Medical History Wears glasses Post-menopausal Anxiety Thyroid disease Arthritis History of renal disease High cholesterol Easy bruising Gastric reflux History of hiatal hernia Graves disease Former smoker Cardiology follow-up encounter History of echocardiogram History of stress test Hiatal hernia Pneumonia COPD (chronic obstructive pulmonary disease) Bronchitis Chest pain, unspecified Asthma HTN (hypertension) Cough Shortness of breath Home Medications ?Medication ?Instructions ?Recorded ?Last Taken ?Type hydrochlorothiazide 25 mg tablet 25 mg PO DAILY BP 08/02/17 04/08/25 07:00 History ipratropium 0.5 mg-albuterol 3 mg 3 ml inhalation Q4H PRN PRN Sob 03/13/19 03/19/19 History (2.5 mg base)/3 mL nebulization &/Or Wheezing soln albuterol sulfate 90 mcg/actuation 2 puff inhalation Q4H PRN 08/24/23 Unknown Rx aerosol inhaler (Ventolin HFA) shortness of breath or wheezing #8.5 grams cetirizine 10 mg tablet (Zyrtec) 10 mg PO DAILY PRN allergy symptoms 08/24/23 04/08/25 07:00 History naproxen 500 mg tablet 500 mg PO BID PRN pain 08/24/23 04/07/25 12:00 History levothyroxine 150 mcg tablet 150 mcg PO QDAY THYROID 02/14/24 04/09/25 04:30 History (Synthroid) fluticasone propionate 230 2 inh inhalation BID ASTHMA #1 ea 02/13/25 04/09/25 04:30 Rx mcg-salmeterol 21 mcg/actuation HFA inhaler (Advair HFA) clonidine HCl 0.1 mg tablet 0.1 mg PO BID HTN #60 tabs 02/27/25 04/09/25 04:30 Rx aspirin 81 mg tablet,delayed 81 mg PO DAILY SUPPLEMENT #360 tabs 03/01/25 04/09/25 04:30 Rx release (Adult Aspirin Regimen) clopidogrel 75 mg tablet (Plavix) 75 mg PO DAILY BLOOD THINNER #30 03/01/25 04/09/25 04:30 Rx tabs metoprolol succinate 50 mg 25 mg PO BID BP 03/01/25 04/09/25 04:30 History tablet,extended release 24 hr budesonide-formoterol HFA 160 2 puff inhalation BID ASTHMA 03/20/25 04/09/25 04:30 History mcg-4.5 mcg/actuation aerosol inhaler montelukast 10 mg tablet 10 mg PO QPM ASTHMA 04/09/25 04/08/25 17:00 History Allergy/AdvReac Type Severity Reaction Status Date / Time shellfish derived Allergy Anaphylaxis Verified 04/09/25 06:16 Iodinated Contrast Media AdvReac Intermediate Rash Verified 04/09/25 06:16 acetaminophen (From [place]) AdvReac Constipatio Verified 04/09/25 06:16 n hydrocodone (From [place]) AdvReac Constipatio Verified 04/09/25 06:16 n levofloxacin (From Levaquin) AdvReac GI upset Verified 04/09/25 06:16 losartan AdvReac Abd Verified 04/09/25 06:16 cramps/diarrhea prednisone AdvReac Other Verified 04/09/25 06:16 Family History Father Heart disease Asthma Mother CAD (coronary artery disease) Sister PAD (peripheral artery disease) Cancer Lung Diabetes Grandfather Diabetes Leukemia Surgical History History of bilateral cataract extraction History of cardiac catheterization History of urethral stent Eyelid retraction unspecified eye, unspecified lid History of D&C Social History household members: spouse housing: house pets and animals: Yes pets and animals: dog(s) Smoking Status: Former smoker Tobacco: How many years used: 30 how long ago did patient quit smokin, 1ppd second hand exposure: Yes alcohol intake: never substance use type: does not use ROS Constitutional Constitutional: Denies chills, fatigue, fever(s) or weakness Eyes Eyes: Denies change in vision Cardiovascular Cardiovascular: Denies chest pain Respiratory/Chest Respiratory/Chest: Denies shortness of breath at rest Gastrointestinal Gastrointestinal: Denies abdominal pain Musculoskeletal Musculoskeletal: Denies arthralgias or myalgias Neurologic Neurologic: Reports numbness and tingling; Denies dizziness, focal weakness or headache(s) Physical Exam Const alert, oriented x3 and no apparent distress Constitutional Narrative: Pleasant elderly female, class I obesity, mildly fatigued appearing, otherwise sitting back comfortably in bed, conversing normally, in no acute distress. General Appearance: cooperative and comfortable HEENT normocephalic, head/scalp atraumatic, hearing grossly normal bilaterally, nasal mucous membranes and turbinates normal and moist oral mucous membranes Eyes PERRL, EOMs intact bilaterally and conjunctivae normal Neck full ROM Neck Narrative: Large bandage noted on left side of neck with some dried blood noted. Chest inspection of chest normal Resp normal respiratory effort, normal air movement, no use of accessory muscles and clear to auscultation bilaterally Cardio regular rate, regular rhythm, no murmurs and peripheral pulses 2+ throughout GI normal to inspection, nondistended, normoactive bowel sounds, soft to palpation, non-tender and non-distended Back/Spine normal ROM Extremity normal to inspection, full ROM and no pedal edema Skin no rashes or lesions noted Neuro oriented x3, moves all extremities and no focal motor deficits Neuro Narrative: Very minor right sided facial droop noted. Mild right sided facial numbness/tingling reported. Speech: speech normal Motor Exam: strength 5/5 throughout Psych mental status grossly normal Lab / Micro Data 03/21/25 11:27 04/09/25 14:35 Labs: Laboratory Results - last 24 hr 04/09/25 07:01: Activated Clotting Time 124 04/09/25 07:59: Activated Clotting Time 314 H 04/09/25 08:35: Activated Clotting Time 245 H 04/09/25 14:35: Sodium 142, Potassium 3.7, Chloride 110 H, Carbon Dioxide 19.4 L, Anion Gap 12, BUN 19, Creatinine 0.65 L, Estim Creat Clear Calc 64.66, Est GFR (MDRD) Non-Af 93, BUN/Creatinine Ratio 29.1 H, Glucose 145 H, Calcium 9.1 Charges/Coding Visit Charges Inpatient E&M: 88111 Subs Hosp L3
[2025-04-09] MEDS: HYDROmorphone 0.5 MG/0.5 ML SYRINGE IV (16:33)
--- NOTE | 2025-04-09 16:42 | PN.SURG_ITS ---
Subjective Subjective Called to see patient for newly developed a right facial droop and numbness. She initially had some minor sensory disturbance in her right cheek just that she was preparing to leave the recovery room and shortly after she was within the intensive care unit she was noted to have a right lower facial droop. Her numbness has partially resolved and is now inferior on her face adjacent to her lip though she continues to have some subtle right lower facial droop. She has a mild headache and otherwise her neurologic exam is normal with completely intact motor and sensory in the bilateral upper and lower extremities. The patient has been hypertensive and is currently on a nitro drip being titrated to goal blood pressure. She also is on multiple home medications which she will be receiving this evening as well as IV as needed labetalol and hydralazine. During assessment the patient continues to have right facial droop however we placed the patient as head of bed at 60 degrees and within several minutes her facial droop began to improve. We also are improving her blood pressure control now with systolics in a satisfactory range of mostly 120-140. Given the lateralizing neurologic deficit that improves with head elevation and blood pressure control this is likely reperfusion however to ensure that we do not miss any other potential causes the patient will go for CT head and CTA head and neck. The patient has a contrast allergy so she will be premedicated prior to her scan. Objective Data Objective Data Vital Signs: Vital Signs Temp Pulse Resp BP Pulse Ox O2 Del Method O2 Flow Rate 98.7 F 64 16 144/59 H 95 Nasal Cannula 2 04/09/25 12:18 04/09/25 13:51 04/09/25 13:51 04/09/25 12:18 04/09/25 13:51 04/09/25 13:51 04/09/25 13:51 Oxygen Flow Rate (L/min) 2 Oxygen Delivery Method Nasal Cannula Weight: 187 lb 2.759 oz Body Mass Index (BMI) 33.1 Intake & Output: Intake and Output for Last 24 Hours 04/07/25 04/08/25 04/09/25 23:59 23:59 23:59 Intake Total 2003.15 / 2003.15 Output Total 50 / 50 Balance 1953.15 / 1953.15 Lab / Micro Data 03/21/25 11:27 04/09/25 14:35 Labs: Laboratory Results - last 24 hr 04/09/25 07:01: Activated Clotting Time 124 04/09/25 07:59: Activated Clotting Time 314 H 04/09/25 08:35: Activated Clotting Time 245 H 04/09/25 14:35: Sodium 142, Potassium 3.7, Chloride 110 H, Carbon Dioxide 19.4 L , Anion Gap 12, BUN 19, Creatinine 0.65 L, Estim Creat Clear Calc 64.66, Est GFR (MDRD) Non-Af 93, BUN/Creatinine Ratio 29.1 H, Glucose 145 H, Calcium 9.1 Radiography Diagnostic Testing: Radiology Impression Brain CT 04/09/25 14:10 IMPRESSION: No acute intracranial finding. Reading Location: [id number]
[2025-04-09] MEDS: Cefazolin 1 GM/50 ML BAG IV ×2 (17:01→23:58)
[2025-04-09] MEDS: Albuterol 2.5 MG/3 ML VIAL.NEB. INHALATION (19:10)
[2025-04-09] MEDS: Budesonide Respules 0.5 MG/2 ML AMPUL.NEB. INHALATION (19:10)
[2025-04-09] MEDS: Nitroglycerin Infusion 250 ML 36 MG CONT INF (19:28)
[2025-04-09] MEDS: Metoprolol(XL)Succ 25 MG Tablet PO (21:51)
[2025-04-09] MEDS: Montelukast 10 MG Tablet PO (21:52)
[2025-04-09] MEDS: cloNIDine HCl 0.1 MG Tablet PO (21:52)
[2025-04-09] MEDS: Acetaminophen 325 MG Tablet 650 MG PO (23:59)
[2025-04-10] VITALS (56 sets, daily range): BP systolic 104–162; BP diastolic 39–127; PULSE 59–138; RESP 14–23; TEMP 36.4–36.8; O2SAT 92–99; BMI 33.1
[2025-04-10] MEDS: 0.9% Saline Lock 10 ML Syringe IV ×7 (05:03→22:18)
[2025-04-10] MEDS: Labetalol 20 MG/4 ML Vial 10 MG IV (05:03)
[2025-04-10] MEDS: Levothyroxine 150 MCG Tablet PO (05:04)
[2025-04-10 05:15] LABS: Absolute Lymphocyte Count 0.96 X10^3/uL (0.83-4.51); Absolute Neutrophil Count 14.8 X10^3/uL (2.0-7.7); Basophil# 0.07 X10^3/uL; Basophil% 0.4 % (0-1); Eosinophil# 0.07 X10^3/uL; Eosinophils% 0.4 % (0-5); Hematocrit 35.4 % (37-47); Hemoglobin 12.1 g/dL (12.0-15.0); Lymphocyte # 0.96 X10^3/ul (0.83-4.51); Lymphocyte % 5.7 % (19-41); Mean Corp Hgb Conc 34.2 g/dL (32-36); Mean Corpuscular Hgb 30.9 pg (27.0-32.0); Mean Corpuscular Volume 90.3 fL (81-99); Mean Platelet Vol. 10.2 fl (6.2-12.0); Monocyte# 0.84 X10^3/uL; NRBC Flagged by Analyzer 0 % (0-5); Neutrophil # 14.82 X10^3/uL (2.7-7.7); Neutrophil % 88.1 % (47-70); Platelet Count 301 K/mm3 (150-450); RBC Distribution Width CV 15.9 % (11.6-14.6); RBC Distribution Width SD 52.6 fl (35.1-43.9); Red Blood Count 3.92 M/mm3 (4.2-5.4); White Blood Count 16.8 K/mm3 (4.4-11.0)
[2025-04-10 05:35] LABS: Anion Gap 10 (5-15); BUN 17 mg/dL (4-19); BUN/Creat Ratio 25.4 RATIO (10-20); Calcium,Total 8.8 mg/dL (7.6-11.0); Carbon Dioxide 20.3 mmol/L (21.0-32.0); Chloride 109 mmol/L (98-108); Creatinine, Serum 0.68 mg/dL (0.70-1.20); EST Glomerular Filtration Rate 92 (>60); Estimated Creatinine Clearance 64.66 ml/min (50-250); Glucose 111 mg/dL (70-99); Potassium 3.5 mmol/L (3.3-5.1); Sodium Level 139 mmol/L (133-145)
[2025-04-10] MEDS: Ipratropium/Albuterol Sulfate 3 ML AMPUL.NEB INHALATION (06:43)
[2025-04-10] MEDS: Budesonide Respules 0.5 MG/2 ML AMPUL.NEB. INHALATION ×2 (06:43→19:57)
[2025-04-10] MEDS: Clopidogrel Bisulfate 75 MG Tablet PO (07:28)
[2025-04-10] MEDS: Aspirin E.C. 81 MG Tablet PO (07:29)
[2025-04-10] MEDS: Enoxaparin 40 MG/0.4 ML Syringe SC (07:29)
[2025-04-10] MEDS: cloNIDine HCl 0.1 MG Tablet PO (07:29)
[2025-04-10] MEDS: hydroCHLOROthiazide 25 MG Tablet PO (07:29)
--- NOTE | 2025-04-10 08:35 | PCM.PN.SRG ---
Subjective Subjective Patient was seen resting comfortably in bed this morning. She reports a mild headache at the base of her neck, denies any lateralized left-sided headaches. She reports the numbness/paresthesias on the right side of her mouth have completely resolved. She has not noticed any other focal neurologic symptoms. She reported expected discomfort at the incision site. No other complaints. She was hypertensive even preoperatively, postoperatively was initially on a nitro drip which was stopped at 0300; she has been maintained with PRN labetalol since then, received her home meds this morning and pressures are systolic 120s on my exam. She had Head CT negative for bleed and Head/Neck CTA negative for any hematoma or other postoperative complication yesterday. Objective Data Objective Data Vital Signs: Vital Signs Temp Pulse Resp BP Pulse Ox O2 Del Method O2 Flow Rate 97.8 F 70 15 136/51 H 92 Room Air 2 04/10/25 04:00 04/10/25 07:03 04/10/25 07:00 04/10/25 07:00 04/10/25 07:00 04/10/25 07:48 04/10/25 05:00 Oxygen Flow Rate (L/min) 2 Oxygen Delivery Method Room Air Weight: 186 lb 15.232 oz Body Mass Index (BMI) 33.1 Intake & Output: Intake and Output for Last 24 Hours 04/08/25 04/09/25 04/10/25 23:59 23:59 23:59 Intake Total 2599.20 / 2605.95 221.00 / 221.00 Output Total 85 / 495 760 / 760 Balance 2514.20 / 2110.95 -539.00 / -539.00 Lab / Micro Data 04/10/25 04:58 04/10/25 04:58 Labs: Laboratory Results - last 24 hr 04/09/25 07:01: Activated Clotting Time 124 04/09/25 07:59: Activated Clotting Time 314 H 04/09/25 08:35: Activated Clotting Time 245 H 04/09/25 14:35: Sodium 142, Potassium 3.7, Chloride 110 H, Carbon Dioxide 19.4 L, Anion Gap 12, BUN 19, Creatinine 0.65 L, Estim Creat Clear Calc 64.66, Est GFR (MDRD) Non-Af 93, BUN/Creatinine Ratio 29.1 H, Glucose 145 H, Calcium 9.1 04/10/25 04:58: WBC 16.8 H, RBC 3.92 L, Hgb 12.1, Hct 35.4 L, MCV 90.3, MCH 30.9, MCHC 34.2, RDW Std Deviation 52.6 H, RDW Coeff of Jennifer 15.9 H, Plt Count 301, MPV 10.2, Immature Gran % (Auto) 0.400, Neut % (Auto) 88.1 H, Lymph % (Auto) 5.7 L, [place] % (Auto) 5.0, Eos % (Auto) 0.4, Baso % (Auto) 0.4, Absolute Neuts (auto) 14.8 H, Absolute Lymphs (auto) 0.96, Nucleated RBC % 0, Sodium 139, Potassium 3.5, Chloride 109 H, Carbon Dioxide 20.3 L, Anion Gap 10, BUN 17, Creatinine 0.68 L, Estim Creat Clear Calc 64.66, Est GFR (MDRD) Non-Af 92, BUN/Creatinine Ratio 25.4 H, Glucose 111 H, Calcium 8.8 Radiography Diagnostic Testing: Radiology Impression Brain CT 04/09/25 14:10 IMPRESSION: No acute intracranial finding. Reading Location: [facility] Neck CTA 04/09/25 14:12 IMPRESSION: 1. Status post left carotid endarterectomy with surgical clips and indwelling surgical drain. 2. Interval improvement in the prior severe left carotid bulb and ICA stenosis. Unchanged severe stenosis of the right ICA just distal to its origin. 3. No large vessel occlusion is visualized. Reading Location: [facility] Physical Exam Const alert, oriented x3 and no apparent distress General Appearance: cooperative and comfortable HEENT normocephalic, head/scalp atraumatic, hearing grossly normal bilaterally, external ears normal and external nose normal Eyes EOMs intact bilaterally General Eye: normal appearance of both eyes Neck General: normal visual inspection and trachea midline Resp normal respiratory effort, normal air movement, no retractions and no use of accessory muscles Effort and Inspection: able to speak in complete sentences; Negative for labored, grunting or stridor Cardio regular rate and regular rhythm Extremity normal to inspection, full ROM and no clubbing, cyanosis or edema General Extremity: normal exam except as noted Skin no rashes or lesions noted Trauma: no lacerations or abrasions Neuro oriented x3, CN's II-XII intact bilaterally, moves all extremities, no focal motor deficits and no sensory deficits noted Speech: speech normal Psych mental status grossly normal, thought process normal, cooperative, affect normal, speech normal and activity/motor behavior normal Appearance: grossly normal Attitude: calm and engaged Activity / Motor Behavior: appropriate eye contact Speech: normal speech Assessment & Plan Assessment/Plan (1) Carotid stenosis, bilateral: PLAN: She is POD#1 s/p L CEA. ABIODUN drain removed this morning, she tolerated this well. The incision site is satisfactory in appearance, no hematoma. Her prior mild R facial droop and R facial numbness/paresthesias have fully resolved, do feel this was secondary to reperfusion. At present, her BP is improved but still requiring PRNs this morning. BP will need to be well-controlled with systolics <140 on oral regimen prior to discharge home. She was quite hypertensive preoperatively, so do not feel her current hypertension is mediated by surgery; hospitalist was consulted for assistance managing her HTN and their assistance is appreciated. Plan for ambulation with nursing or PT later this morning or this afternoon. Discharge will be pending stability of her blood pressures through the day.
[2025-04-10] MEDS: Metoprolol(XL)Succ 25 MG Tablet PO ×2 (08:59→14:30)
[2025-04-10] MEDS: Acetaminophen 325 MG Tablet 650 MG PO ×2 (09:59→16:21)
--- NOTE | 2025-04-10 11:04 | ECHOCS_ITS ---
Reason For Study Reason For Study: ATRIAL FIBRILLATION Procedure This was a 2D Doppler, Color Flow transthoracic echocardiogram. Contrast injection was performed. The patient was scanned supine. Exam performed portable in ICU/CCU. Left Ventricle Normal LV size. Moderate concentric left ventricular hypertrophy. The LV systolic function is normal. EF is 60 %. Stage 1 diastolic dysfunction. Right Ventricle Normal right ventricle. Atria The left and right atria are normal. Mitral Valve Trivial mitral valve insufficiency. Tricuspid Valve Mild to moderate (1-2+) tricuspid valve insufficiency. Right ventricular systolic pressure estimated to be 37 mmHg. Aortic Valve Aortic sclerosis, no stenosis. Pulmonic Valve Trivial pulmonic valve insufficiency. Great Vessels Normal sized aortic root. Pericardium/Pleural No pericardial effusion. Medication Diluted definity 1ml given slow IV push to enhance endocardial definition. MMode/2D Measurements & Calculations LVIDd: 3.3 cm IVSd: 1.5 cm LVOT diam: 2.0 cm LVIDs: 2.4 cm LVPWd: 1.3 cm RVDd: 2.8 cm FS: 26.0 % LVOT area: 3.2 cm2 LA dimension: 3.8 cm asc Aorta Diam: 3.5 cm LAV(MOD- bp): 44.0 ml LAV(MOD- bp) Indexed: 23.9 ml/m2 LAV(MOD- sp2): 45.6 ml LAV(MOD- sp4): 40.1 ml SV(MOD- sp4): 31.9 ml LVAd ap4: 23.6 cm2 LVAd ap2: 27.2 cm2 LVLd ap4: 7.3 cm LVLd ap2: 7.9 cm SI(MOD- sp4): 17.3 ml/m2 EDV(MOD-sp4): 61.9 ml EDV(MOD-sp2): 75.1 ml EDV(sp4-el): 64.6 ml EDV(sp2-el): 79.7 ml LVAs ap4: 15.4 cm2 LVAs ap2: 16.4 cm2 LVLs ap4: 6.9 cm LVLs ap2: 6.9 cm ESV(MOD-sp4): 30.0 ml ESV(MOD-sp2): 32.9 ml ESV(sp4-el): 29.4 ml ESV(sp2-el): 33.3 ml EF(MOD-sp4): 51.5 % EF(MOD-sp2): 56.2 % EF(sp4-el): 54.5 % SV(MOD-sp2): 42.2 ml SV(sp4-el): 35.2 ml Ao sinus diam: 2.8 cm SI(MOD-sp2): 22.9 ml/m2 Ao ST Junction: 2.4 cm LA dimension(2D): 3.7 cm LA A4 area: 16.7 cm2 RA A4 area: 14.5 cm2 TAPSE: 2.2 cm Time Measurements MV dec time: 0.15 sec Doppler Measurements & Calculations MV E max agustín: 104.4 cm/sec Ao V2 max: 142.2 cm/sec LV V1 max: 104.0 cm/sec Ao max P.1 mmHg LV V1 max P.3 mmHg Ao V2 mean: 99.8 cm/sec LV V1 mean P.1 mmHg Ao mean P.6 mmHg LV V1 mean: 67.4 cm/sec Ao V2 VTI: 24.4 cm LV V1 VTI: 18.7 cm AV (velocity ratio): 0.77 JACQUELIN(I,D): 2.5 cm2 JACQUELIN(V,D): 2.4 cm2 SV(LVOT): 60.8 ml PA V2 max: 87.8 cm/sec TR max agustín: 283.5 cm/sec TR max P.2 mmHg ECHO/Echo Complete W/ Contrast Interpretation Summary Moderate concentric left ventricular hypertrophy. The LV systolic function is normal. EF is 60 %. Stage 1 diastolic dysfunction. Mild to moderate (1-2+) tricuspid valve insufficiency. Right ventricular systolic pressure estimated to be 37 mmHg. Aortic sclerosis, no stenosis. Ordering Physician: Wiley Guerrero Referring Physician: YOVANY PETERS Performed By: Britney Lock RDCS and Student
[2025-04-10] MEDS: dilTIAZem 25 MG/5 ML Vial 15 MG IV BOLUS ×2 (11:10→11:38)
--- NOTE | 2025-04-10 11:14 | CASEMGMT ---
NAS SANTANA Assessment Face to Face with patient for initial transition planning/care coordination assessment. NAS SANTANA introduced self and role at [facility], pt voices understanding. Pt is A&Ox4 and is resting comfortably in bed and is calm. Pt's at bedside. Care providers, pharmacy, and demographics verified. Admitting dx: Left Carotid Endarterectomy LACE Strata: 1 PCP: Amanda Bahena Specialists: Stevo Sifuentes (Pulmonary), Taisha (Vascular) Preferred Pharmacy: [facility] Insurance: [facility] A/B/G Prescription Benefit: Yes - Through [employer] LNOK: Bonifacio (H), Maite (DIL) Living Arrangements: Pt lives with her in a ranch style home with 3 steps to enter ADLs/IADLs: Pt reports that she is entirely independent and denies any concerns. Transportation: Self, DME: BP Machine, pulse ox HHC/SNF: Denies Pt?s goal: Home Plan: home once medically ready, anticipate no additional needs. At this time, the team is trying to get the pt's BP and HR better controlled. Pt reports that she does feel safe returning home with her once medically ready for DC and denies further home needs at this time. Khushboo Castelan RN, CM
[2025-04-10] MEDS: Metoprolol Tartrate 5 MG/5 ML Vial IV ×4 (12:05→16:48)
[2025-04-10] MEDS: Metoprolol(XL)Succ 50 MG Tablet PO (12:22)
[2025-04-10] MEDS: Amiodarone 150 MG in Dextrose 5%-Water (100mL Bag) 100 ML 600 MG IV BOLUS (16:14)
[2025-04-10 17:32] LABS: Free T3 2.2 pg/mL (2.18-3.98); T4 Total, Thyroxin 14.3 ug/dL (4.8-13.9)
[2025-04-10] MEDS: Amiodarone 360 MG in Dextrose 5% Viaflo Bag 192.8 ML 33.3 MG CONT INF (18:10)
--- NOTE | 2025-04-10 18:25 | PN.HOSP_ITS ---
Reason for Visit Reason for Visit: Diagnoses Occlusion and stenosis of bilateral carotid arteries (04/09/25) Encounter for other preprocedural examination (04/09/25) Subjective Subjective Patient was seen and examined today, she went into atrial fib with RVR today, I talked with vascular surgery about her care. I first elected to give her IV Cardizem x 2 which did not convert her, rate was slowed down only slightly, I then gave her IV metoprolol which converted her to sinus rhythm for time but she then went back into atrial fib later on the afternoon. At that time I gave her additional IV and oral metoprolol, this did not slow her rate down appreciably and I ended up giving her IV amiodarone bolus of 150 mg and placed her on amiodarone drip. Thyroid functions were obtained and her oral metoprolol was increased substantially to 100 mg twice daily. Also talked her about the clonidine she is taking, she complains of a dry mouth and sleepiness with this medication. I will try to reduce the medication and plan on her tapering it off as an outpatient. Objective Data Objective Data Vital Signs: Vital Signs Temp Pulse Resp BP Pulse Ox O2 Del Method O2 Flow Rate 97.6 F L 103 H 23 H 158/73 H 93 Room Air 2 04/10/25 08:00 04/10/25 18:10 04/10/25 18:00 04/10/25 18:00 04/10/25 18:00 04/10/25 18:00 04/10/25 05:00 Oxygen Flow Rate (L/min) 2 Oxygen Delivery Method Room Air Weight: 84.8 kg Body Mass Index (BMI) 33.1 Intake & Output: Intake and Output for Last 24 Hours 04/08/25 04/09/25 04/10/25 23:59 23:59 23:59 Intake Total 2599.20 / 2605.95 734.00 / 734.00 Output Total 85 / 495 760 / 760 Balance 2514.20 / 2110.95 -26.00 / -26.00 Lab / Micro Data 04/10/25 04:58 04/10/25 04:58 Labs: Laboratory Results - last 24 hr 04/10/25 04:58: WBC 16.8 H, RBC 3.92 L, Hgb 12.1, Hct 35.4 L, MCV 90.3, MCH 30.9, MCHC 34.2, RDW Std Deviation 52.6 H, RDW Coeff of Jennifer 15.9 H, Plt Count 301, MPV 10.2, Immature Gran % (Auto) 0.400, Neut % (Auto) 88.1 H, Lymph % (Auto) 5.7 L, [place] % (Auto) 5.0, Eos % (Auto) 0.4, Baso % (Auto) 0.4, Absolute Neuts (auto) 14.8 H, Absolute Lymphs (auto) 0.96, Nucleated RBC % 0, Sodium 139, Potassium 3.5, Chloride 109 H, Carbon Dioxide 20.3 L, Anion Gap 10, BUN 17, C reatinine 0.68 L, Estim Creat Clear Calc 64.66, Est GFR (MDRD) Non-Af 92, B UN/Creatinine Ratio 25.4 H, Glucose 111 H, Calcium 8.8 04/10/25 16:40: Thyroxine (T4) 14.3 H, Free T3 pg/dL 2.2 Radiography Diagnostic Testing: Radiology Impression Echocardiogram 04/10/25 11:04 Interpretation Summary Moderate concentric left ventricular hypertrophy. The LV systolic function is normal. EF is 60 %. Stage 1 diastolic dysfunction. Mild to moderate (1-2+) tricuspid valve insufficiency. Right ventricular systolic pressure estimated to be 37 mmHg. Aortic sclerosis, no stenosis. Ordering Physician: Wiley Guerrero Referring Physician: YOVANY PETERS Performed By: Britney Lock RDCS and Student Physical Exam Const alert, oriented x3, no apparent distress and healthy appearing General Appearance: cooperative, well kempt and well developed Orientation / Consciousness: awake, oriented to person, oriented to place and oriented to time HEENT normocephalic and moist oral mucous membranes Eyes PERRL, EOMs intact bilaterally and conjunctivae normal Neck supple, no JVD, thyroid normal and no carotid bruits General: trachea midline Resp normal respiratory effort and clear to auscultation bilaterally Auscultation: Negative for rales, rhonchi or wheezes Cardio S1 normal heart sound, S2 normal heart sound, no murmurs, no rub and no gallops Cardio Narrative: Heart rate and rhythm is irregular GI normal to inspection, nondistended, normoactive bowel sounds, soft to palpation, non-tender and non-distended Extremity no clubbing, cyanosis or edema Skin no rashes or lesions noted General Skin Exam: no breakdown Neuro oriented x3, CN's II-XII intact bilaterally, moves all extremities, no focal motor deficits and no sensory deficits noted Sensorium / Orientation: awake and alert Speech: speech normal Psych affect normal Assessment & Plan Assessment/Plan (1) HTN (hypertension): PLAN: Plan 1. New onset atrial fibrillation with RVR-echocardiogram was performed today, showed her EF to be 60% with mild pulmonary hypertension. Left and right atria are normal. Patient was placed on amiodarone drip, she will continue her beta- sheila and I will stop her nighttime dose of clonidine. Patient will be reevaluated tomorrow #2 essential hypertension-blood pressure will be monitored, adjustments on her medication will be made as needed #3 hypothyroidism-patient will have thyroid function tests ordered #4 carotid occlusive disease-status post carotid endarterectomy left #5 chronic obstructive pulmonary disease-complicates care, management, recovery, and prognosis Total clinical time spent by myself addressing the patient's medical issues, reviewing all of her data, and collaborating with patient's care team: 50 minutes Charges/Coding Visit Charges Inpatient E&M: [id number] [facility] L3
[2025-04-10] MEDS: Ondansetron 4 MG/2 ML Vial IV (20:05)
[2025-04-10] MEDS: Metoprolol(XL)Succ 100 MG Tablet PO (22:15)
[2025-04-10] MEDS: Acetaminophen 500 MG Tablet 1000 MG PO (22:15)
[2025-04-10] MEDS: Montelukast 10 MG Tablet PO (22:16)
[2025-04-10] MEDS: HYDROmorphone 0.5 MG/0.5 ML SYRINGE IV (22:17)
--- OUTSIDE RECORDS SUMMARY | 2025-04-10 22:32 | XMS RPT_ITS | CCD ---
Author Organization [facility] Care Team Providers Care Statue Maker Name Role Phone Cogmatilda AJ Freda N Unavailable Monikaar COSMETICS MACHINE OPERATOR, Freda N Unavailable [phone] BUFFALO PA-C, AMANDA Primary Care Physician TYLER YAO, DR THOMAS Attending Unavailable IGOR MONTANO MD Referring Unavailabl e BUFFALO, AMANDA Primary Care Unavailable [place] PA-C, Amanda Primary Care Provider Shruti BRUNNER-C, Amanda Referring Provider Pebbles BERMAN-CTatiana Attending Provider Dr. eDs Avila MD Emergency Provider BUFFALO, [place] PAC Consulting Unavailable BUFFALO, AMANDA Admitting Unavailable BUFFALO, AMANDA Primary Care Unavailable BUFFALO, AMANDA Attending Unavailable PROVIDER, UNKNOWN Consulting Unavailable BUFFALO, AMANDA Admitting Unavailable BUFFALO, AMANDA Primary Care Unavailable BUFFALO, AMANDA Consulting Unavailable BUFFALO, AMANDA Attending Unavailable PROVIDER, UNKNOWN Consulting Unavailable BUFFALO, AMANDA Admitting Unavailable BUFFALO, AMANDA Primary Care Unavailable BUFFALO, AMANDA Consulting Unavailable BUFFALO, AMANDA Attending Unavailable PROVIDER, UNKNOWN Consulting Unavailable BUFFALO, AMANDA Admitting Unavailable BUFFALO, AMANDA Primary Care Unavailable BUFFALO, AMANDA Consulting Unavailable BUFFALO, AMANDA Attending Unavailable PROVIDER, UNKNOWN Consulting Unavailable Dr. Des Avila MD Attending Provider Zeinab Keita Attending Provider [phone] Zeinab Keita Referring Provider [phone] Taisha MD, Dr. Papo Attending Provider [phone] Des Avila Attending Unavailable [facility] Primary Care Unavailable Tatiana Rogel NP Attending Unavailable [facility] Unavailable [facility] Referring Unavailable Pepe Sanchez Attending Unavailable [facility] Primary Care Unavailable [place], Papo Referring Unavailable Minal, Amos Consulting Unavailable Amos Fontaine Attending Unavailable [facility] Primary Care Unavailable Taisha, Papo Referring Unavailable [place], Papo Admitting Unavailable Taisha, Papo Consulting Unavailable Taisha, Papo Attending Unavailable [facility] Primary Care Unavailable [facility] [place] Referring Unavailable Taisha, Papo Attending Unavailable Carrillo, Zeinab Attending Unavailable [facility] Primary Care Unavailable [facility] Referring Unavailable [facility] Unavailable Carrillo, Zeinab Attending Unavailable Carrillo, Zeinab Referring Unavailable Allergies Allergy Classification Reported Allergen(s) Allergy Type Date of Onset Reaction(s) Facility (3 sources) Acetaminophen Drug Allergy 07-22-20 Drug-induced constipation with proper administration [facility] (3 sources) HYDROcodone Drug Allergy 07-22-20 Drug-induced constipation with proper administration [facility] (3 sources) levoFLOXacin Drug Allergy 07-22-20 GI upset [facility] (3 sources) predniSONE Drug Allergy 07-22-20 22 Other [facility] Comment on above: BLURRED VISION, CHES T PAIN/PRESSURE, TACHYCARDIA (2 sources) Losartan Drug Allergy 02-28-20 Abd cramps/diarrhea [facility] (1 source) HYDROcodone Drug Allergy [facility] (1 source) levoFLOXacin Drug Allergy [facility] (1 source) Triiodobenzoic Acids Propensity to adverse reactions 03-05-20 Rash [facility] (1 source) Acetaminophen Drug Allergy 04-09-20 [facility] (1 source) HYDROcodone Drug Allergy 04-09-20 [facility] (1 source) levoFLOXacin Drug Allergy 04-09-20 [facility] (1 source) Losartan Drug Allergy 04-09-20 [facility] (1 source) predniSONE Drug Allergy 04-09-20 [facility] (1 source) Shellfish Drug allergy (disorder) 04-09-20 [facility] (1 source) Iodinated Contrast Media Drug allergy (disorder) 04-09-20 [facility] Medications Current Medications Medication Drug Class(es) [...] qDay, # 30 tab(s), 5 Refill(s), Pharmacy: [id number], 162.6, cm, 05/06/23 6:46:00 EDT, [...] Active 2 NMA INHALATION TWICE A DAY February 13, 2025 12:00am Start: 11-27-2024 End: [...] TABS One tablet by mouth daily HYDROCHLOROTHIAZIDE [id number] Amanda Bahena PA-C 24 hr metoprolol succinate 50 [...] tablet by mouth once daily LEVOTHYROXINE SODIUM 08757218285 Amanda Bahena PA-C Start: 04-08-2016 take 1 tablet by arlen th once daily SYNTHROID 125 MCG TABS 1 tablet by mouth once daily LEVOTHYROXINE SODIUM 40771273460 Amanda Bahena PA-C Start: 02-11-2010 End: 04-08-2016 take 1 tablet by mouth once daily LEVOXYL 112 MCG TABS 1 tab by mouth michelle y LEVOTHYROXINE SODIUM 44669004378 Amanda Bahena PA-C Start: 02-11-2010 take 1 tablet by arlen th once daily LEVOXYL 112 MCG TABS 1 tab by mouth michelle y LEVOTHYROXINE SODIUM 00324143221 Sandie BRUNNER Start: 02-11-2010 End: 04-08-2016 take 1 tablet by mouth once daily LEVOXYL 112 MCG TABS 1 tab by mouth michelle rossi LEVOTHYROXINE SODIUM 44320604951 Amanda Bahena PA-C Start: 02-11-2010 take 1 tablet by arlen th once daily LEVOXYL 112 MCG TABS 1 tab by mouth michelle y LEVOTHYROXINE SODIUM 89444254585 Sandie BRUNNER vitamin B12 (1 source) Vitamin [...] as needed for Pain Score 6-10/10 12 July 25, 2020 July 27, 2020 12:00am July 28, 2020 12:02am Start: 07-25-2020 End: 07-28-2020 Hydrocodone-Acetaminophen Di scontinued 1 EACH PO EVERY 8 HOURS NEEDED 12 July 25, 2020 July 28, 2020 12:02am [id number] 200 actuat albuterol 0.09 mg/actuat metered dose [...] every 4 hours as needed ALBUTEROL SULFATE [id number] Devi Anguiano PA-C Start: 03-03-2011 End: 03-08-2011 VENTOLIN HFA 108 (90 Base) M CG/ACT AERS 2 puffs every 4 hours as needed ALBUTEROL SULFATE 10490969025 Devi Anguiano PA-C amoxicillin 500 mg oral capsule (2 sources) Penicillin-class Antibacterial Start: 02-11-2010 End: 02-21-2010 take 1 capsule by mouth three times daily AMOXICILLIN 500 MG CAPS Take 1 capsule by mouth three times a day X 10 days AMOXICILLIN 02705417767 Sandie BRUNNER benzonatate 100 mg oral capsule (2 sources) Non-narcotic Antitussive Start: 07-27-2017 End: 08-06-2017 BENZONATATE 100 MG CAPS Take 1 tablet every 8 hours as necessary for cough BENZONATATE [id number] Steven BRUNNER Budesonide-Formot jens (10 sources) Corticosteroid, beta2-Adrenergic Agonist Start: 12-06-2024 End: 02-13-2025 Budesonide-Formot jens (Breyna) 160-4.5 mcg/actuation HFA aerosol inhaler Discontinued 2 NMA INHALATION TWICE A DAY December 06, 2024 10:42am February 13, 2025 [...] Discontinued 2 PUFF INHALATION TWICE A DAY March 21, 2019 12:00am April 05, 2019 8:16am cephalexin 500 mg oral capsule (3 sources) Cephalosporin Antibacterial Start: 07-27-2020 End: 01-21-2021 take 1 capsule by mouth every eight hours Cephalexin 500 MG capsule Discontinued 500 mg PO EVERY 8 HOURS July 27, 2020 12:00am January 21, 2021 1:11pm ciprofloxacin 500 mg oral tablet (2 sources) Quinolone Antimicrobial Start: 03-03-2011 End: 03-10-2011 CIPRO 500 MG TABS Take 1 tablet by mouth morning and night X 7 days CIPROFLOXACIN HCL 39250311919 Devi Anguiano PA-C diphenhydrAMINE hydrochloride 25 mg oral strip (2 sources) Histamine-1 Receptor Antagonist Start: 04-08-2016 take 2 tablets by mouth twice daily BENADRYL 25 MG TABS 2 tablets by mouth twice daily DIPHENHYDRAMINE HCL 94909666110 Amanda Bahena PA-C FLUTICASONE PROPIONATE (2 sources) Corticosteroid Start: 02-11-2010 End: 02-21-2010 take 2 spray(s) nasal route once daily FLONASE 50 MCG/ACT SUSP 2 sprays each nostril once a day FLUTICASONE PROPIONATE 18931065531 Sandie BRUNNER Start: 02-11-2010 End: 02-21-2010 take 2 spray(s) nasal route once daily FLONASE 50 MCG/ACT SUSP 2 sprays each nostril once a day FLUTICASONE PROPIONATE 48582998955 Sandie BRUNNER lisinopril 40 mg oral tablet (6 sources) Angiotensin Converting Enzyme Inhibitor Start: 04-08-2016 take 1 tablet by mouth once daily LISINOPRIL 40 MG TABS 1 tablet by mouth once daily LISINOPRIL 15109534840 Amanda Bahena PA-C Start: 02-11-2010 End: 04-08-2016 take 1 tablet by mouth twice daily LISINOPRIL 40 MG TABS One tablet by mouth twice a day LISINOPRIL 25628742801 Sandie BRUNNER metoclopramide 10 mg oral tablet [...] mg tablet Discontinued 10 mg PO DAILY@1700 October 10, 2024 3:29pm February 13, 2025 [...] TABS One tablet by mouth daily SIMVASTATIN 29112066175 Amanda Bahena PABryn TRIAMCINOLONE ACETONIDE (2 sources) Corticosteroid Start: 07-27-2017 NASACORT ALLERGY 24HR 55 MCG/ACT AERO TRIAMCINOLONE ACETONIDE 63528296416 Steven BRUNNER Start: 07-27-2017 NASACORT ALLER GY 24HR 55 MCG/ACT AERO TRIAMCINOLONE ACETONIDE 37503524418 Steven BRUNNER Problems Active Problems Problem Classification [...] Episodic Occlusion or stenosis of precerebral arteries (6 sources) Occlusion and stenosis of bilateral carotid arteries; Translations: [Bilateral stenosis of carotid arteries] Onset: 02-28-2025 03-05-2025 Chronic Comment on above: CTA images reviewed, right 81%, left 80%, mild calcifications, low bifurcation Other aftercare (1 source) 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, [address] ACTk CLOT TIME 124 sec Normal 74-137 [facility] Comment on above: Performed By: #### L 9100.0100 #### [facility] [address] [place], [address] ACTk CLOT TIME 314 sec High 74-137 [facility] Comment on above: Performed By: #### L 9100.0100 ####[facility] [address] [place], [address] Basic Metabolic Profile (BMP )on 04-09-2025 BUN/CRE 29.1 RATIO High 10-20 [facility] Comment on above: Performed By: #### L 500.2500 ####[facility] [address] [place], [address] Calcium [Mass/Vol] 9.1 mg/dL Normal 7.6-11.0 [facility] Comment on above: Performed By: #### L 500.2500 ####[facility] [address] [place], [address] Chloride [Moles/Vol] 110 mmol/L High 98-108 [facility] Comment on above: Performed By: #### L 500.2500 ####[place] [address] [place], [address] CO2 [Moles/Vol] 19.4 mmol/L Low 21.0-32.0 [facility] Comment on above: Performed By: #### L 500.2500 ####[facility] [address] [place], [address] Creatinine [Mass/Vol] 0.65 mg/dL Low 0.70-1.20 [facility] Comment on above: Performed By: #### L 500.2500 ####[facility] [address] [place], [address] ECRCL 64.66 ml/min Normal 50-250 [facility] Comment on above: Performed By: #### L 500.2500 ####[facility] [address] [place], [address] GAP 12 Normal 5-15 [facility] Comment on above: Performed By: #### L 500.2500 ####[facility] [address] [place], [address] GFR/1.73 sq M.predicted among non-blacks MDRD (S/P/Bld) [Vol rate/Area] 93 mL/min/{1.73_m2} Normal >60 [facility] Comment on above: Result Comment: mL/m in/1.73m2 CKD-EPI Creatinine Equation (2020) Performed By: #### L 500.2500 ####[facility] [address] [place], [address] Glucose [Mass/Vol] 145 mg/dL High 70-99 [facility] Comment on above: Performed By: #### L 500.2500 ####[facility] [address] [place], [address] Potassium [Moles/Vol] 3.7 mmol/L Normal 3.3-5.1 [facility] Comment on above: Performed By: #### L 500.2500 ####[facility] [address] [place], [address] Sodium [Moles/Vol] 142 mmol/L Normal 133-145 [facility] Comment on above: Performed By: #### L 500.2500 ####[facility] [address] [place], [address] Urea nitrogen [Mass/Vol] 19 mg/dL Normal 4-19 [facility] Comment on above: Performed By: #### L 500.2500 ####[facility] [address] [place], [address] CTA Neck W/WO Contraston CTA Neck W/WO Contrast [facility] [address] [place] [address] CTA Neck W/WO Contrast MR#: [id number] Acct: [id number] Name: NOBLE WILDE Rep #: [id number] : 1950 F 75 From: Karly Vargas nd, MD PCP: Amadna Bahena PA-C Status: ADM IN Study: CTA Neck W/WO Contrast Date of Exam: 04/09/25 Exam# [id number] Ordering Dr: Papo Sumner MD PROCEDURE: CTA NECK W/WO CONTRAST 04/09/2025 REASON FOR EXAM: FACIAL DROOP, left-sided TECHNIQUE: CTA imaging of the neck from the aortic arch to the skull base with intravenous contrast. Multiplanar and multisequence images were obtained. CONTRAST: Isovue 370 VOLUME: 100 mL One or more dose reduction techniques were used (e.g., Automated exposure control, adjustment of the mA and/or kV according to patient size, use of iterative reconstruction technique). RADIATION DOSE SUMMARY: CTDlvol: 50 mGy DLP: 700 mGycm COMPARISON: Same-day CT head, CTA head and neck 03/02/2025. FINDINGS: Status post left carotid endarterectomy with surgical clips and indwelling surgical drain. There is scattered subcutaneous air, compatible with postoperative status. Interval improvement in the prior severe left carotid bulb and ICA stenosis. Unchanged severe stenosis just distal to the right ICA origin, stable since prior examination. The bilateral vertebral arteries are widely patent. The visualized bilateral anterior, middle and posterior cerebral arteries are widely patent. 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 Other findings: Cervical spondylosis and diffuse osseous demineralization. Biapical emphysema and pleural-parenchymal scarring. CT/CTA Neck W/WO Contrast IMPRESSION: 1. Status post left carotid endarterectomy with surgical clips and indwelling surgical drain. 2. Interval improvement in the prior severe left carotid bulb and ICA stenosis. Unchanged severe stenosis of the right ICA just distal to its origin. 3. No large vessel occlusion is visualized. Reading Location: [id number] CC: LORNA Bahena; Dr. Papo Sumner MD Adobe Cq Developer: Signed Normal [facility] Consultation - [facility] 04-09-2025 Consultation - Hospitalist [facility] Medical Records Department [address] [place] [address] Consultation - Hospitalist 04/09/25 1535 MR#: [id number] Acct: [id number] Name: NOBLE WILDE Rep #: [id number] : 1950 75 From: Amos Fontaine DO PCP: Amanda Bahena PA-C Status:ADM IN Location: ICU ICU06-1 Assessment Plan Assessment/Plan (1) Carotid stenosis, bilateral: PLAN: Plan Patient is a 75-year-old female who presented to [facility] on 04/09/25 for planned left carotid endarterectomy procedure. Medicine consulted postoperatively for medical management. 1. Bilateral carotid stenosis ??? Vascular surgery primary. S/p left carotid endarterectomy procedure with Dr. Sumner on 04/09. Tolerated procedure well, no intraoperative complications. Continue aspirin and Plavix. Pain control and further management per vascular surgery. 2. Right-sided facial droop with numbness/tingling, improving ??? Vascular surgery primary as above. Developed right-sided facial droop with numbness/tingling postoperatively. CT brain unremarkable and CTA neck unchanged severe stenosis of the right ICA just distal to its origin. Per vascular, most consistent with reperfusion issue that is improving with tighter blood pressure control and elevating head of the bed. Continue blood pressure treatment as noted below. 3. Hypertension ??? Hypertensive postoperatively up to the 200s systolic. Per vascular, goal BP is 120-140 systolic. Continue nitroglycerin drip. Resume home clonidine, hydrochlorothiazide and Toprol. 4. Mild hypoxia in setting of asthma/COPD overlap syndrome ??? Not on home oxygen. Requiring 2 L nasal cannula postoperatively to maintain appropriate oxygen saturations. Presume secondary to anesthesia and shallow breaths in setting of recent procedure, not in acute exacerbation. Continue home inhalers. Wean supplemental oxygen as able. 5. Hypothyroidism ??? Continue home Synthroid. 6. Class I obesity ??? BMI 33 on admit. Encouraged weight loss. Complicates hospital course, care and prognosis. 7. Former tobacco abuse ??? Encouraged continued cessation. DVT prophylaxis: Lovenox per vascular surgery Total clinical time spent by myself addressing the patient's medical issues, reviewing all the data, and collaborating with patient's care team: 50 minutes. HPI Consult Data Date of Consult: 04/09/25 HPI Narrative Reason for Consultation: Postoperative medical management HPI Narrative: NOBLE WILDE, is a 75 F who presented to [facility] on 04/09/2025 for planned left carotid endarterectomy procedure. Medicine consulted postoperatively for medical management. Patient had procedure done with Dr. Sumner this morning, no intraoperative complications noted. Shortly before leaving the recovery room she developed right facial numbness and right facial droop. She was evaluated by Dr. Sumner for this. She was noted to be hypertensive and on a nitro drip at that time, and Dr. Sumner had a head of the bed raised to 60 degrees and within several minutes her facial droop again improved. He suspected that given the lateralizing neurologic deficit improvement with head elevation and blood pressure control this is most consistent with reperfusion. Obtain CTA head/neck and CT brain for further evaluation and these were unremarkable. I saw the patient at the bedside later this afternoon after she came back from her CT scans. She reported mild right-sided facial numbness, much improved from previous. Very minor right facial droop was noted as well on my exam. She otherwise stated that she had a dull pain in the left neck area where the procedure was done today. She denied any other acute concerns currently. [facility] Medical History Wears glasses Post-menopausal Anxiety Thyroid disease Arthritis [...] tablet 25 mg PO DAILY BP 08/02/17 06/08/2 5 07:00 History ipratropium 0.5 mg-albuterol 3 mg 3 ml inhalation Q4H PRN PRN Sob 0 03/13/19 03/19/19 History (2.5 mg base)/3 mL nebulization /Or Wheezing soln albuterol sulfate 90 mcg/actuation 2 puff inhalation Q4H PRN Unknown Rx aerosol inhaler (Ventolin HFA) shortness of breath or wheezing #8.5 grams cetirizine 10 mg tablet (Zyrtec) 10 mg PO DAILY PRN allergy symptom s 08/24/2304/08 (more content not included)... Normal [facility] MR/POSTOP.[facility] 04-09-2025 MR/POSTOP.[facility] Medical Records Department [address] [place] [address] Anesthesia Postop Eval I 04/09/25 1111 MR#: [id number] Acct: [id number] Name: NOBLE WILDE Rep #: [id number] : 1950 75 From: Herson Oshea CRNA PCP: Amanda Bahena PA-C Status:ADM IN Y Race: C Location: [place] [address] Anesthesia: Postop Eval I Current Vital Signs Temperature: 97.8 F Pulse Rate: 78 Blood Pressure: 187/83 Respiratory Rate: 16 Pulse Ox: 98 Oxygen Delivery Method: Nasal Cannula Oxygen Flow Rate (L/min): 2 Assessment Airway patent: Yes Spontaneous unlabored respirations: Yes Mental status: Awake nausea: No Vomiting: No Anesthesia Complication: No Fluid Hydration Crystalloid volume administer (ml): 1,600 Total IV fluid infused: 1,600 Progress Note Anesthesia document: Postop Eval 1 completed: Yes 04/09/25 1112 Date Herson Stinsonjeffery LOSS PREVENTION MANAGER Cosigner Signature: Date CC: Signed Normal [facility] [id number] 04-09-2025 MR/POSTOPAN2 [facility] Medical Records Department [address] [place] [address] Anesthesia Postop Eval II 04/09/25 1147 MR#: [id number] Acct: [id number] Name: NOBLE WILDE Rep #: [id number] : 1950 75 From: Matt Ibarra MD PCP: Amanda Bahena PA-C Status:ADM IN Y Race: C Location: ICU ICU06- Anesthesia Postop Eval I Sum Postop Eval Completion status Anesthesia document: Postop Eval 1 completed: Yes Anesthesia Postop Eval I Summary Anesthesia Postop Eval I Summary: Anesthesia Postop Eval I: Assessment Summary Airway patent Yes 04/09/25 11:12 LOSS PREVENTION MANAGER.JBLOU Spontaneous unlabored Yes 04/09/25 11:12 LOSS PREVENTION MANAGER.KRISHANLOU respirations Mental status Awake 04/09/25 11:12 LOSS PREVENTION MANAGER.JBLOU nausea No 04/09/25 11:12 LOSS PREVENTION MANAGER.JBLOU Vomiting No 04/09/25 11:12 LOSS PREVENTION MANAGER.JBLOU Anesthesia Postop Eval I: Fluid Summary Crystalloid volume administer 1,600 04/09/25 11:12 LOSS PREVENTION MANAGER.JBLOU (ml) Colloids volume administered ( ml) Blood Product volume administered (ml) Total IV fluid infused 1,600 04/09/25 11:12 LOSS PREVENTION MANAGER.JBLOU Anesthesia Postop Eval I: Summary Notes Anesthesia Complication No 04/09/25 11:12 LOSS PREVENTION MANAGER.JBLOU Anesthesia Complication Comment: Post-operative progress note Anesthesia: Postop Eval II Evaluation Mental status: Awake Pain Level: 1 nausea: No Vomiting: No 04/09/25 1147 Date Matt Briceno Signature: Date CC: Signed Normal [facility] Operative Reporton 5 Operative Report [facility] Medical Records Department [address] [place] [address] Operative Report 04/09/25 1047 MR#: [id number] Acct: [id number] Name: NOBLE WILDE Rep #: [id number] : 1950 75 From: Papo Sumner MD PCP: Amanda Bahena PA-C Status:ADM IN Location: ICU ICU06 Operative Report (Standard) Operative Information Date of Procedure: 04/09/25 Pre-Operative Diagnosis: left carotid stenosis Post-Operative Diagnosis: same Surgery/Procedure Performed: left carotid endarterectomy lusterer: Yes Nursery Nurse: Maximo Hill Tasks completed by assistant executive housekeeper: Opening, Closing, Opening closing, Hemostasis: Tie, Hemostasis: Electrocautery and Retracting Type of Anesthesia: General RN Documented Start/Stop Times: Operation Date: 04/09/25 07:30 Case Time Into Pre-Op 04/09/25 05:35 Out of Pre-Op 04/09/25 07:15 Anesthesia Start 04/09/25 07:30 Into Room 04/09/25 07:30 Procedure Start 04/09/25 08:28 Procedure End 04/09/25 10:50 Anesthesia End 04/09/25 11:02 Out of Room 04/09/25 11:02 Into Recovery 04/09/25 11:05 Out of Recovery 04/09/25 12:39 Procedure Start Time: 08:30 Procedure Stop Time: 10:45 Select all DRAINS/GRAFTS/IMPLANTS that apply: Graft Graft details: bovine pericardial patch Estimated Blood Loss: 50 Specimen collected: Yes Description of specimen(s) removed: plaque Description of surgery: HPI: Patient is a 75-year-old female with asymptomatic bilateral carotid artery stenosis which is severe. She presents now for left carotid endarterectomy with planned staged right carotid endarterectomy at a later date. Description of procedure: Upon obtaining informed consent and verification correct patient procedure site she was taken to the operating where she was placed under general anesthesia. She was then positioned prepped and draped in usual sterile fashion and timeout was performed. Oblique incision was made at the anterior border left sternocleidomastoid and Bovie electrocautery used to dissect down to the subcutaneous tissue to the level of the platysma. The platysma was divided and self- retaining retractors were put in position exposing the anterior border of the sternocleidomastoid. Bovie was then used to mobilize the muscle along with anterior border allowing posterolateral retraction and exposing the carotid sheath. Sharp dissection was then used dissect free the jugular vein with multiple anterior branches including the facial vein identified, ligated with silk ties and divided. The vein was then retracted laterally exposing the carotid vessels. Sharp dissection was used to dissect free the proximal common carotid artery with care taken to identify and protect the vagus nerve which was in his normal anatomic position. The vessel was then dissected free circumferentially and a right angle used to place a vessel loop. Next sharp section was used to dissect free the distal internal carotid artery beyond the palpable and visible plaque with care taken to identify and protect the hypoglossal nerve. The vessel was dissected free circumferentially and a right angle used to place a vessel loop. The patient was then heparinized allowed to circulate for 3 minutes with subsequent heparin dosing based on ACT results. While the heparin was circulating sharp dissection was used to dissect free the external carotid artery and a right angle used to place a vessel loop. The vessel then occluded first the internal followed by the common and the external. A longitudinal arteriotomy was created with an 11 blade on the distal common carotid artery and extended with Guillen scissors onto the internal carotid artery beyond the area of plaque. A 10 [place] shunt was then placed first distally in the internal carotid artery allowed to backbleed before placing proximally in the common carotid artery. The shunt was interrogated with Doppler and found to be patent with low resistance signal. We then performed her endarterectomy with a freer elevator with satisfactory endpoint distally on the internal carotid artery and eversion endarterectomy of the external carotid artery. The distal endpoint was tacked with 7-0 Prolene interrupted sutures and the lumen flushed with heparinized saline to clear of any potential debris. A bovine pericardial patch was then secured in position using a 6-0 Prolene in a running fashion. Prior to completing the suture line the shunt was withdrawn and the vessel was backbled. After completing the suture line the internal carotid artery was allowed to backbleed and the bifurcation then reoccluded at its origin. Clamps were then removed from the external and common carotid artery allowing 10 heartbeats of antegrade flow into the internal carotid artery before reestablishing antegrade flow into the internal carotid artery. Once the clamps were removed (more content not included)... Normal [place] STROKE Brain/Head without Co nton 04-09-2025 STROKE Brain/Head without Cont [facility] Imaging Services [address] [place], [place] [id number] STROKE Brain/Head without Cont MR#: [id number] Acct: [id number] Name: NOBLE WILDE Rep #: [id number] : 1950 F 75 From: Karly Vargas nd, MD PCP: Amanda Bahena PA-C Status: ADM IN Study: STROKE Brain/Head without Cont Date of Exam: 0 04/09/25 Exam# [id number] Ordering Dr: Papo Sumner MD EXAM: STROKE BRAIN/HEAD WITHOUT CONT CLINICAL HISTORY: 75 y/o F with RIGHT FACIAL DROOP. COMPARISON: Same day CTA neck, CTA head and neck 03/02/2025. TECHNIQUE: Routine CT imaging of the head without IV contrast. Additional multiplanar reformats were obtained. Dose reduction techniques were used including intermediate exposure control (AEC),iterative reconstruction technique, and/or mA and/or KV dose adjustments based on patient's size. FINDINGS: No acute intracranial hemorrhage or herniation. Mild scattered supratentorial white matter hypodensities. The timmons-white matter interfaces are maintained. No ventriculomegaly. The orbits, visualized paranasal sinuses and mastoids are unremarkable. No acute calvarial fracture or scalp hematoma. CT/STROKE Brain/Head without Cont IMPRESSION: No acute intracranial finding. Reading Location: [id number] CC: LORNA Bahena; Dr. 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 - [employer] mixing [employer] Hx Hospitalization No 03/20/25 15:02 Any Problems [...] take am of surgery PONV PONV - [employer] mixing [employer]: PONV - [employer] mixing [employer] Female Yes 03/20/25 15:02 HX of Motion [...] 03/01/25 11:31 Respiratory Assessment Respiratory Assessment - [employer] mixing [employer]: Respiratory Tract Infection Hx - d[employer] mixing [employer] Hx Respiratory Tract Infection No 03/20/25 15:02 STOP Sleep Apnea STOP Sleep Apnea - d[employer]: STOP Sleep Apnea - d[employer] mixing [employer] Hx Hypertension Yes 03/20/25 15:02 Hx Sleep [...] Tobacco Use History Tobacco Use History - d[employer] mixing [employer]: Tobacco Use History - d[employer] mixing [employer] Tobacco Use Smoking Status Former smoker 03/20/25 15:02 Hx Tobacco Use No 03/20/25 15:02 Years Smoking Packs Smoked per Day Smoking Cessation Date was Yes - quit smoking within 15 03/20/25 15:02 within the last 15 years years Hx Smoking Cessation Date Hx Smoking Cessation No 03/20/25 15:02 Counseling Hematologic Medial History Hematologic Hx - dumper [employer] mixing [employer]: 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 Specify any problems Hx of Preganancy in last 3 No 03/20/25 15:02 Months Nurse Filling Out Transfusion EHKIRKMAN 03/20/25 15:02 Questions: Date: 03/20/25 03/20/25 15:02 Time: 15:13 03/20/25 15:02 Patient unable to answer at this time (ie. confused, unrespo /Reproduction History /Reproductive History - d[employer] central concrete mixing [employer]: /Reproductive Hx- d[employer] mixing [employer] Hx Now No 03/20/25 15:02 Gestational Age [...] Q4H PRN Un (more content not included)... [facility] 12 Lead EKGon 03-21-2025 12 Lead EKG [facility] Cardiovascular Services [address] [place] [address] 12 Lead EKG 03/21/25 1204 MR#: [id number] Acct: [id number] Name: NOBLE WILDE Rep #: [id number] : 1950 74 From: Pepe Sanchez MD Attending Dr: Dr. Papo Sumner MD Status: PRE I N Ordering Dr: Matt Ibarra MD Date: 03/21/25 Location: [facility] Sex: F C Admitted: Test Reason : PREOP Blood Pressure : */* mmHG Vent. Rate : 66 BPM Atrial Rate : 66 BPM P-R Int : 176 ms QRS Dur : 98 ms QT Int : 406 ms P-R-T Axes : 33 51 62 degrees QTcB Int : 425 ms Normal sinus rhythm Normal ECG Confirmed by DANIEL YAO, PEPE ([id number]), avid editor VEGA TOLBERT ([id number]) on 03/21/2025 1:01:45 PM Referred By: Papo Sumner Confirmed By: PEPE SANCHEZ MD 03/21/25 1301 Date Pepe Sanchez MD CC: LORNA Bahena; Dr. Matt Ibarra MD; Dr. Papo Sumner MD Signed [facility] Basic Metabolic Profile (BMP )on 03-21-2025 BUN/CRE 28.5 RATIO High 10-20 [place] Comment on above: Performed By: #### L 100.0100, L500.2500 #### [facility] [address] [place], [address] Calcium [Mass/Vol] 10.2 mg/dL Normal 7.6-11.0 [facility] Comment on above: Performed By: #### L 100.0100, L500.2500 #### [facility] [address] [place], [address] Chloride [Moles/Vol] 104 mmol/L Normal 98-108 [facility] Comment on above: Performed By: #### L 100.0100, L500.2500 #### [facility] [address] [place], [address] CO2 [Moles/Vol] 26.9 mmol/L Normal 21.0-32.0 [place] Comment on above: Performed By: #### L 100.0100, L500.2500 #### [facility] [address] [place], [address] Creatinine [Mass/Vol] 0.83 mg/dL Normal 0.70-1.20 [place] Comment on above: Performed By: #### L 100.0100, L500.2500 #### [facility] [address] [place], [address] GAP 11 Normal 5-15 [place] Comment on above: Performed By: #### L 100.0100, L500.2500 #### [facility] [address] [place], [address] GFR/1.73 sq M.predicted among non-blacks MDRD (S/P/Bld) [Vol rate/Area] 75 mL/min/{1.73_m2} Normal >60 [place] Comment on above: Result Comment: mL/m in/1.73m2 CKD-EPI Creatinine Equation (2020) Performed By: #### L 100.0100, L500.2500 #### [facility] [address] [place], [address] Glucose [Mass/Vol] 99 mg/dL Normal 70-99 [facility] Comment on above: Performed By: #### L 100.0100, L500.2500 #### [place] [facility] [address] [place], [address] Potassium [Moles/Vol] 3.8 mmol/L Normal 3.3-5.1 [place] Comment on above: Performed By: #### L 100.0100, L500.2500 #### [facility] [address] [place], [address] Sodium [Moles/Vol] 142 mmol/L Normal 133-145 [facility] Comment on above: Performed By: #### L 100.0100, L500.2500 #### [facility] [address] [place], [address] Urea nitrogen [Mass/Vol] 24 mg/dL High 4-19 [place] Comment on above: Performed By: #### L 100.0100, L500.2500 #### [facility] [address] [place], [address] CBC W/Diff, Automatedon 05-2 -2024 Absolute Lymph 1.60 X10 3/uL Normal 0.83-4.51 [place] Comment on above: Performed By: #### L 100.0100, L500.2500 #### [facility] [address] [place], [address] Absolute Neut 6.9 X10 3/uL Normal 2.0-7.7 [place] Comment on above: Performed By: #### L 100.0100, L500.2500 #### [facility] [address] [place], [address] Basophils/100 WBC (Bld) 0.5 % Normal 0-1 [place] Comment on above: Performed By: #### L 100.0100, L500.2500 #### [facility] [address] [place], [address] Eosinophils/100 WBC (Bld) 1.2 % Normal 0-5 [place] Comment on above: Performed By: #### L 100.0100, L500.2500 #### [facility] [address] [place], [address] Erythrocyte distribution width (RBC) [Ratio] 15.4 % High 11.6-14.6 [place] Comment on above: Performed By: #### L 100.0100, L500.2500 #### [facility] [address] [place], [address] Hematocrit (Bld) [Volume fraction] 44.7 % Normal 37-47 [place] Comment on above: Performed By: #### L 100.0100, L500.2500 #### [facility] [address] [place], [address] Hemoglobin (Bld) [Mass/Vol] 14.7 g/dL Normal 12.0-15.0 [place] Comment on above: Performed By: #### L 100.0100, L500.2500 #### [facility] [address] [place], [address] IG% 0.400 Normal 0.0-0.9 [place] Comment on above: Result Comment: IG% - Immature Granulocytes (promyelocytes, myelocytes and metamyelocytes) > 1% indicates that a LEFT SHIFT is Present. Performed By: #### L 100.0100, L500.2500 #### [facility] [address] [place] [place], [address] Lymphocytes/100 WBC (Bld) 17.4 % Low 19-41 [place] Comment on above: Performed By: #### L 100.0100, L500.2500 #### [facility] [address] [place], [address] MCH (RBC) [Entitic mass] 30.4 pg Normal 27.0-32.0 [place] Comment on above: Performed By: #### L 100.0100, L500.2500 #### [facility] [address] [place], [address] MCHC (RBC) [Mass/Vol] 32.9 g/dL Normal 32-36 [place] Comment on above: Performed By: #### L 100.0100, L500.2500 #### [facility] [address] [place], [address] MCV (RBC) [Entitic vol] 92.4 fL Normal 81-99 [place] Comment on above: Performed By: #### L 100.0100, L500.2500 #### [facility] [address] [place], [address] Monocytes/100 WBC (Bld) 5.5 % Normal 0-10 [place] Comment on above: Performed By: #### L 100.0100, L500.2500 #### [facility] [address] [place], [address] Neutrophils/100 WBC (Bld) 75.0 % High 47-70 [place] Comment on above: Performed By: #### L 100.0100, L500.2500 #### [facility] [address] [place], [address] Nucleated RBC (Bld) [#/Vol] 0 10*3/uL Normal 0-5 [place] Comment on above: Performed By: #### L 100.0100, L500.2500 #### [facility] [address] [place], [address] Platelet mean volume (Bld) [Entitic vol] 10.6 fL Normal 6.2-12.0 [place] Comment on above: Performed By: #### L 100.0100, L500.2500 #### [facility] [address] [place], [address] Platelets (Bld) [#/Vol] 358 10*3/uL Normal 150-450 [place] Comment on above: Performed By: #### L 100.0100, L500.2500 #### [facility] [address] [place], [address] RBC (Bld) [#/Vol] 4.84 10*6/uL Normal 4.2-5.4 [facility] Comment on above: Performed By: #### L 100.0100, L500.2500 #### [facility] [address] [place], [address] RDW SD 52.4 fl High 35.1-43.9 [place] Comment on above: Performed By: #### L 100.0100, L500.2500 #### [facility] [address] [place], [address] WBC (Bld) [#/Vol] 9.2 10*3/uL Normal 4.4-11.0 [facility] Comment on above: Performed By: #### L 100.0100, L500.2500 #### [facility] [address] [place], [address] Thyroid Stim Hormone (TSH)on 03-21-2025 TSH 0.576 uIU/mL Normal 0.300-4.200 [place] Comment on above: Performed By: #### L 501.9520 ####[place] [address] [place], [address] /Abelino 03-05-2025 /BMS.BVS [facility] [address] [place] [address] OFFICE VISIT Date of Service: 03/05/25 MR#: [id number] Acct: [id number] Name: NOBLE WILDE Rep #: [id number] : 1950 Provider: Dr. Papo Sumner MD Age/Sex: 74/F Location: [facility].BVS Status: Signed Intake Vital Signs 02/27/25 17:54 [...] (Intermediate, Verified 03/05/25 12:46) Rash acetaminophen (From Rand) Adverse Reaction (Verified 03/01/25 10:19) Constipation hydrocodone (From Rand) Adverse Reaction (Verified 03/01/25 10:19) Constipation levofloxacin [...] stent, palpitations, (more content not included)... [facility] [place] CTA Head AND Neck W/ Contras ton 03-02-2025 CTA Head AND Neck W/ Contrast [facility] Imaging Services [address] [place] [address] CTA Head AND Neck W/ Contrast MR#: [id number] Acct: [id number] Name: NOBLE WILDE Rep #: [id number] : 1950 F 74 From: Wiley Yip MD PCP: Amanda Bahena PA-C Status: [facility] CLI Study: CTA Head AND Neck W/ Contrast Date of Exam: Exam# [id number] Ordering Dr: Zeinab Carrillo PROCEDURE: CT HEAD [...] Posterior circulation: Patent. 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 RIGHT PICA and LEFT AICA are visualized. [...] 4. Additional description as above. Reading Location: [id number] CC: LORNA Bahena; KANNAN Bermudez Adobe Cq Developer: Signed Normal [place] MR/BMS.BVSon 03-01-2025 MR/BMS.BVS [facility] Surgery [address] [facility] [place] [address] OFFICE VISIT Date of Service: 03/01/25 MR#: [id number] Acct: [id number] Name: NOBLE WILDE Rep #: [id number] : 1950 Provider: KANNAN Bermudez Age/Sex: 74/F Location: [facility].BVS Status: Signed Intake Vital Signs 02/27/25 17:54 03/01/25 10:13 Height 5 ft 4 in Weight: 179 lb BP 175/72 H Blood Pressure Location Lt brachial Position Sitting Respiration 16 Pulse 74 Pulse Source Monitor Temp 98.0 F Temp Source Temporal Pulse Oximetry (%) 98 Oxygen Delivery Method room air Intake Visit Reasons: B/L Carotid Bruit Is patient in pain?: Yes Allergies acetaminophen (From [facility]) Adverse Reaction (Verified 03/01/25 10:19) Constipation hydrocodone (From Rand) Adverse Reaction (Verified 03/01/25 10:19) Constipation levofloxacin [...] prescription medications; 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 She has a history of smoking, quit about 20 years ago. She is not diabetic. She reports following some episodes of chest pressure with associated diaphoresis she had a cardiac workup in 2022 through [facility] and ultimately a cardiac cath at [facility] which she reports was negative. She tried statins but had severe myalgias so could not tolerate. She does have hypertension, has been more elevated than usual but improved afte (more content not included)... Normal [place] CV CAROTID STUDY CV CAROTID STUDY [place] [address] Patient: NOBLE WILDE Phone#: : 1950 Age: 74 Gender: F Pt. Type: Out Account: [id number] Location: 011 Ordering: [facility] Exam Date: 02/28/2025/12:52 Family Phys: Charge Code: 739127 Physician: [place] Order #: [id number] Dose#: PROCEDURE: CAROTID FLOW STUDY COMPARISON: None. INDICATIONS: BILATERAL BRUITS TECHNIQUE: Color duplex Doppler ultrasound and pulsed Doppler analysis were performed to evaluate the cervical carotid arteries and vertebral flow. All measurements for carotid artery narrowing or stenosis were obtained using the ipsilateral distal internal carotid artery as the reference value. JAILKEEPER: MAURICIO BULLARD RVDebbie RDCS PT HISTORY: Bruit RIGHT IMAGING FINDINGS: [...] 74 Gender: F Pt. Type: Out Account: [id number] Location: 011 Ordering: [facility] Exam Date: 02/28/2025/12:52 Family Phys: Charge Code: 098640 Physician: [place] Order #: [id number] Dose#: Distal ICA: 118.04 cm/s Distal ICA [...] Tom MD on 02/28/2025 at 14:59 Normal [facility] Emergency Department Summary on 02-27-2025 Emergency Department Summary [facility] Medical Records Department [address] [place] [address] Emergency Department Summary 02/27/25 MR#: [id number] Acct: [id number] Name: NOBLE WILDE Rep #: [id number] : 1950 74 From: Des Avila MD PCP: Amanda Bahena PA-C Status:REG ER Location: ED HPI [...] similar symptoms: Yes Recent Illness/Hospitalizatio n: Yes [facility] Medical History (Updated 02/27/25 @ 19:[address] Des Avila MD) Pneumonia COPD (chronic obstructive pulmonary disease) Bronchitis Chest pain, unspecified Asthma HTN (hypertension) Cough Shortness of breath Home Medications ???Medication ???Instructions ???Recorded ???Last Taken ???Type hydrochlorothiazide 25 mg tablet 25 mg PO DAILY BP 08/02/1707/26/2 0 History ipratropium 0.5 mg-albuterol 3 mg [...] Reaction Status Date / Time acetaminophen (From Rand) AdvReac Constipatio Verified 02/27/25 17:59 n hydrocodone (From Rand) AdvReac Constipatio Verified 02/27/25 17:59 n levofloxacin [...] exertion, orthop (more content not included)... Normal [place] Pulmonary Visit Reporton Pulmonary Visit Report [facility] [place] [address] [place] [address] OFFICE VISIT Date of Service: 02/13/25 MR#: [id number] Acct: [id number] Name: NOBLE WILDE Rep #: [id number] : 1950 Provider: AKAHS Rogel Age/Sex: 74/F Location: [facility].PMW Status: Signed Assessment and Plan Assessment and [...] 3RF Plan Details Follow Up: 1 Year ([facility] ) HPI 1 Y [...] yearly Accompanied by: Self Allergies acetaminophen (From [facility]) Adverse Reaction (Verified 02/13/25 14:14) Constipation hydrocodone (From [facility]) Adverse Reaction (Verified 02/13/25 14:14) Constipation levofloxacin (From Levaquin) Adverse Reaction (Verified 02/13/25 14:14) GI upset prednisone Adverse Reaction (Verified 02/13/25 14:14) Other Medications ???Medication ???Instructions ???Recorded ???Confirmed ???Type hydrochlorothiazide 25 mg tablet 25 mg PO DAILY BP 08/02/17 04/ 5 History ipratropium 0.5 mg-albuterol 3 mg 3 ml inhalation Q4H PRN PRN Sob 0 5/13/19 04/15/25 History (2.5 mg base)/3 mL nebulization /Or [...] 02/13/25 Rx (more content not included)... Normal [place] CMP with eGFRon 01-01-2025 AGE 74 years Normal [facility] Comment on above: Performed By: #### 2 33218 #### [facility],[address] [place] [address] Albumin [Mass/Vol] 3.7 g/dL Normal 3.4 - 5.0 [facility] Comment on above: Performed By: #### 2 70318 #### [facility],[address] [place] [address] Albumin/Globulin [Mass ratio] 1.1 {ratio} Normal 0.9 - 1.6 [facility] Comment on above: Performed By: #### 2 84255 #### [facility],[address] [place] [address] ALK PHOS 94 U/L Normal 46 - 116 [facility] Comment on above: Performed By: #### 2 59807 #### [facility],[address] [place], [place] [id number] ALT [Catalytic activity/Vol] 38 U/L Normal 16 - 63 [facility] Comment on above: Performed By: #### 2 80832 #### [facility],[address] [place] [address] Anion gap [Moles/Vol] 13 mmol/L Normal 10 - 20 [facility] Comment on above: Performed By: #### 2 21382 #### [facility],[address] [place] [address] AST [Catalytic activity/Vol] 27 U/L Normal 13 - 39 [facility] Comment on above: Performed By: #### 2 08900 #### [facility],[address] [place] [address] B/C RATIO 22 ratio Normal 0 - 30 [facility] Comment on above: Performed By: #### 2 84027 #### [facility],[address] [place], [place] [address] Bilirubin [Mass/Vol] 0.4 mg/dL Normal 0.2 - 1.0 [facility] Comment on above: Performed By: #### 2 63946 #### [facility],[address] [place] [address] Calcium [Mass/Vol] 9.5 mg/dL Normal 8.5 - 10.1 [facility] Comment on above: Performed By: #### 2 39548 #### [facility],[address] [place], [place] [address] Chloride [Moles/Vol] 104 mmol/L Normal 98 - 107 [facility] Comment on above: Performed By: #### 2 45891 #### [facility],[address] [place], [place] [phone] CMP with eGFR Normal [facility] Comment on above: Result Comment: COMP REHENSIVE METABOLIC PANEL Performed By: #### 2 58546 #### [facility],[address] [place], [place] [address] CO2 [Moles/Vol] 28.1 mmol/L Normal 21.0 - 32.[address] [facility] Comment on above: Performed By: #### 2 07287 #### [facility],[address] [place], [place] [address] Creatinine [Mass/Vol] 0.64 mg/dL Normal 0.55 - 1.02 [facility] Comment on above: Performed By: #### 2 19484 #### [facility],[address] [place], [place] [address] GFR/1.73 sq M.predicted among non-blacks MDRD (S/P/Bld) [Vol rate/Area] mL/min/{1.73_m2} Normal 60 - 999 [facility] Comment on above: Performed By: #### 2 38302 #### [facility],[address] [place] [address] Result Comment: ACCO RDING TO THE NATIONAL KIDNEY DISEASE EDUCATION PROGRAM(NKDE), A NORMAL eGFR IS A VALUE GREATER THAN OR EQUAL TO 60 ML/MIN/1.73 SQ METERS. CHRONIC KIDNEY DISEASE: <60mL/MIN/1.73 SQ METERS KIDNEY FAILURE: <15mL/MIN/1.73 SQ METERS THIS TEST SHOULD ONLY BE USED FOR PATIENTS 18 YEARS OF AGE AND OLDER. Globulin (S) [Mass/Vol] 3.3 g/dL Normal 1.5 - 3.8 [facility] Comment on above: Performed By: #### 2 04562 #### [facility],[address] [place] [address] Glucose [Mass/Vol] 95 mg/dL Normal 74 - 106 [facility] Comment on above: Performed By: #### 2 68087 #### [facility],[address] [place] [address] Potassium [Moles/Vol] 3.6 mmol/L Normal 3.5 - 5.1 [facility] Comment on above: Performed By: #### 2 43754 #### [facility],[address] [place] [address] Protein [Mass/Vol] 7.0 g/dL Normal 6.4 - 8.2 [facility] Comment on above: Performed By: #### 2 05892 #### [facility],[address] [place] [address] Sodium [Moles/Vol] 141 mmol/L Normal 136 - 145 [facility] Comment on above: Performed By: #### 2 69004 #### [facility],[address] [place] [address] Urea nitrogen [Mass/Vol] 14 mg/dL Normal 7 - 18 [facility] Comment on above: Performed By: #### 2 50876 #### [facility],[address] [place] [address] LIPID PROFILEon 01-01-2025 Cholesterol [Mass/Vol] 258 mg/dL High 0 - 240 [facility] Comment on above: Performed By: #### 2 81461 #### [facility],[address] [place] [address] Cholesterol in HDL [Mass/Vol] 78 mg/dL High 40 - 60 [facility] Comment on above: Performed By: #### 2 [id number] #### [facility],[address] [place] [address] 33572 Cholesterol in LDL [Mass/Vol] 167 mg/dL High 0 - 129 [facility] Comment on above: Performed By: #### 2 [id number] #### [facility],[address] [place] [address] 61294 Cholesterol.total/Ch olesterol in HDL [Mass ratio] 3.3 {ratio} Normal 0.0 - 5.0 [facility] Comment on above: Performed By: #### 2 73149 #### [facility],[address] [place] [address] 14887 Lipid 1996 panel Normal [facility] Comment on above: Result Comment: LIPI D PROFILE Performed By: #### 2 76216 #### [facility],[address] [place] [address] 62896 Triglyceride [Mass/Vol] 67 mg/dL Normal 0 - 150 [facility] Comment on above: Performed By: #### 2 01764 #### [facility],[address] [place] [address] 78349 TSHon 01-01-2025 TSH Qn 2.59 m[IU]/L Normal 0.35 - 3.74 [facility] Comment on above: Performed By: #### 2 96343 #### [facility],[address] [place] [address] 45024 LABORATORYOrdered By: Freda Diaz on 05-06-2023 INR Coag (PPP) [Relative time] 0.9 {INR} Invalid Interpretation Code AH Auto Coag SS PT Coag (PPP) [Time] 10.5 s Invalid Interpretation Code 9.0 - 14.8 seconds AH Auto Coag SS PROon 05-06-2023 INR Coag (PPP) [Relative time] 0.9 {INR} Normal [facility] ([place]) Comment on above: Order Comment: blue top hemolyzed called Sharon Álvarez at 05/06/2023 07:16:24 EDT-mlm Result Comment: The [employer] (CHEST, 1992, 102:312S-25S) recommended therapeutic range for oral anticoagulant therapy is: LOW RISK: Prophylaxis of venous thrombosis INR: 2.0-3.0 Treatment of pulmonary embolism 2.0-3.0 Prevention of systemic embolism 2.0-3.0 HIGH RISK: Mechanical prosthetic valves 2.5-3.5 Performed By: #### P RO #### [facility] [address] [place] [address] PT Coag (PPP) [Time] 10.5 s Normal 9.0-14.8 [facility] ([place]) Comment on above: Order Comment: blue top hemolyzed called Sharon Álvarez at 05/06/2023 07:16:24 EDT-mlm Result Comment: Effe ctive 05/15/08, Protime results may be affected by some antibiotics (i.e. Ciprofloxacin, Azithromycin, Bactrim) which may potentiate the action of oral anticoagulants, with further increase in Protime/INR. Performed By: #### P RO #### [facility] [address] [place] [address] [id number] FECAL GLOBIN BY IMMUNOCHEM. (MEDICARE)on 09-11-2020 FECAL GLOBIN BY IMMUNOCHEM. (MEDICARE) SEE NOTE Abnormal [facility] Comment on above: Order Comment: FASTI NG: UNKNOWN Result Comment: FECAL GLOBIN BY IMMUNOCHEM. (MEDICARE) Micro Number: [id number] Test Status: Final Specimen Source: INSURE () FOBT TEST CARD Specimen Quality: Adequate Fecal Globin: Detected Performed By: #### 1 1293 #### [facility]-[address], [address] [place] [address] [employer] Engineer: Michael Lyn MD COMPREHENSIVE METABOLIC PANE [place] 09-05-2020 Albumin [Mass/Vol] 4.1 g/dL Normal 3.6-5.1 [facility] Comment on above: Performed By: #### 8 99, 45064, 7600 #### [facility]-[address], [address] [place] [address] [employer] Engineer: Michael Lyn MD Albumin/Globulin [Mass ratio] 1.7 (calc) Normal 1.0-2.5 [facility] Comment on above: Performed By: #### 8 99, 20471, 7600 #### [facility]-[address], [address] [place] [address] [employer] Engineer: Michael Lyn MD ALP [Catalytic activity/Vol] 87 U/L Normal 37-153 [facility] Comment on above: Performed By: #### 8 99, 07282, 7600 #### [facility]-[address], [address] [place] [address] [employer] Engineer: Michael Lyn MD ALT [Catalytic activity/Vol] 14 U/L Normal 6-29 [facility] Comment on above: Performed By: #### 8 99, 32571, 7600 #### [facility]-[address], [address] [place] [address] [employer] Engineer: Michael Lyn MD AST [Catalytic activity/Vol] 13 U/L Normal 10-35 [facility] Comment on above: Performed By: #### 8 , , 7600 #### [facility]-[address], [address] [place] [address] [employer] Engineer: Michael Lyn MD Bilirubin [Mass/Vol] 0.4 mg/dL Normal 0.2-1.2 [facility] Comment on above: Performed By: #### 8 , , 0 #### [facility], [address] [place] [address] [employer] Engineer: Michael Lyn MD Calcium [Mass/Vol] 10.0 mg/dL Normal 8.6-10.4 [facility] Comment on above: Performed By: #### 8 , , 7600 #### [facility]-[address], [address] [place] [address] [employer] Engineer: Michael Lyn MD Chloride [Moles/Vol] 100 mmol/L Normal 98-110 [facility] Comment on above: Performed By: #### 8 , , 0 #### [facility]-[address], [address] [place] [address] [employer] Engineer: Michael Lyn MD CO2 [Moles/Vol] 27 mmol/L Normal 20-32 [facility] Comment on above: Performed By: #### 8 , 44342, 0 #### [facility]-[address], [address] [place] [address] [employer] Engineer: Michael Lyn MD Creatinine [Mass/Vol] 0.72 mg/dL Normal 0.50-0.99 [facility] Comment on above: Result Comment: For patients >49 years of age, the reference limit for Creatinine is approximately 13% higher for people identified as -British. Performed By: #### 8 , 44417, 7600 #### [facility]-[address], [address] [place] [address] [employer] Engineer: Michael Lyn MD eGFR NON-AFR. [place]ER 86 mL/min/1.73m2 Normal > OR = 60 [facility] Comment on above: Performed By: #### 8 , , 0 #### [facility]-[address], [address] [place] [address] [employer] Engineer: Michael Lyn MD GFR/1.73 sq M predicted among blacks MDRD (S/P/Bld) [Vol rate/Area] 100 mL/min/{1.73_m2} Normal > OR = 60 [facility] Comment on above: Performed By: #### 8 , , 0 #### [facility]-[address], [address] [place] [address] [employer] Engineer: Michael Lyn MD Globulin (S) [Mass/Vol] 2.4 g/dL (calc) Normal 1.9-3.7 [facility] Comment on above: Performed By: #### 8 , , 0 #### [facility], [address] [place] [address] [employer] Engineer: Michael Lyn MD Glucose [Mass/Vol] 84 mg/dL Normal 65-99 [facility] Comment on above: Result Comment: Fasting reference interval Performed By: #### 8 , 70289, 0 #### [facility]-[address], [address] [place] [address] [employer] Engineer: Michael Lyn MD Potassium [Moles/Vol] 4.0 mmol/L Normal 3.5-5.3 [facility] Comment on above: Performed By: #### 8 99, 10462, 0 #### [facility], [address] [place] [address] [employer] Engineer: Michael Lyn MD Protein [Mass/Vol] 6.5 g/dL Normal 6.1-8.1 [facility] Comment on above: Performed By: #### 8 , 62970, 7600 #### [facility], [address] [place] [address] [employer] Engineer: Michael Lyn MD Sodium [Moles/Vol] 140 mmol/L Normal 135-146 [facility] Comment on above: Performed By: #### 8 , 70634, 7600 #### [facility], [address] [place] [address] [employer] Engineer: Michael Lyn MD Urea nitrogen [Mass/Vol] 16 mg/dL Normal 7-25 [facility] Comment on above: Performed By: #### 8 99, 12361, 7600 #### [facility]-[address], [address] [place] [address] [employer] Engineer: Michael Lyn MD Urea nitrogen/Creatinine [Mass ratio] NOT APPLICABLE Normal 6-22 [facility] Comment on above: Performed By: #### 8 , 19519, 7600 #### [facility]-[address], [address] [place] [address] [employer] Engineer: Michael Lyn MD LIPID PANEL, STANDARD 11-0 Cholesterol [Mass/Vol] 252 mg/dL High <200 [facility] Comment on above: Performed By: #### 8 , 02352, 7600 #### [facility]-[address], [address] [place] [address] [employer] Engineer: Michael Lyn MD Cholesterol in HDL [Mass/Vol] 68 mg/dL Normal > OR = 50 [facility] Comment on above: Performed By: #### 8 99, 78830, 7600 #### [facility]-[address], [address] [place] [address] [employer] Engineer: Michael Lyn MD Cholesterol in LDL [Mass/Vol] [...] equation in the estimation of LDL-C. Sky ACOSTA et al. MONA. 2013;310(19): 4846-8053 (http://education.[employer]/faq/BBG560) Performed By: #### 8 99, 08735, 7600 #### [facility]-[address], [address] [place] [address] [employer] Engineer: Michael Lyn MD Cholesterol.total/Ch olesterol in HDL [Mass ratio] 3.7 (calc) Normal <5.0 [facility] Comment on above: Performed By: #### 8 , 90022, 7600 #### [facility]-[address], [address] [place] [address] [employer] Engineer: Michael Lyn MD NON HDL CHOLESTEROL 184 mg/dL (calc) High <130 [facility] Comment on above: Result Comment: For patients with diabetes plus 1 major ASCVD risk factor, treating to a non-HDL-C goal of <100 mg/dL (LDL-C of <70 mg/dL) is considered a therapeutic option. Performed By: #### 8 , , 0 #### [facility]-[address], [address] [place] [address] [employer] Engineer: Michael Lyn MD Triglyceride [Mass/Vol] 64 mg/dL Normal <150 [facility] Comment on above: Performed By: #### 8 , , 0 #### [facility]-[address], [address] [place] [address] [employer] Engineer: Michael Lyn MD TSHon 09-05-2020 TSH Qn 1.32 m[IU]/L Normal 0.40-4.50 [facility] Comment on above: Performed By: #### 8 , , 0 #### [facility]-[address], [address] [place] [address] [employer] Engineer: Michael Lyn MD Office Visit: UC: coughon Documentation of current medications (procedure) Done Invalid Interpretation Code [facility] Work Phone: Fall risk assessment No Invalid Interpretation Code [facility] Work Phone: Tobacco smoking status NHIS Never Invalid Interpretation Code [facility] Work Phone: Tobacco use CPHS Never smoker Invalid Interpretation Code [facility] Work Phone: Vital Signs Date Time Vital Sign Value Performing Clinician Facility 03-05-2025 12:36-0400 Body temperature 98.6 [degF] ArtCorgi PA-C Work Phone: [place] 03-05-2025 12:36-0400 Body weight 81.19 kg ArtCorgi PA-C Work Phone: [place] 03-05-2025 12:36-0400 Diastolic blood pressure 98 mm[Hg] ArtCorgi PA-C Work Phone: [place] 03-05-2025 12:36-0400 Heart rate 77 /min ArtCorgi PA-C Work Phone: [place] 03-05-2025 12:36-0400 Inhaled oxygen flow rate 97 L/min ArtCorgi PA-C Work Phone: [place] 03-05-2025 12:36-0400 Respiratory rate 16 /min ArtCorgi PA-C Work Phone: [place] 03-05-2025 12:36-0400 SaO2% (BldA) [Mass fraction] 97 % ArtCorgi PA-C Work Phone: [place] 03-05-2025 12:36-0400 Systolic blood pressure 170 mm[Hg] ArtCorgi PA-C Work Phone: [place] 03-01-2025 11:31-0400 Body height 162.56 cm ArtCorgi PA-C Work Phone: [place] 03-01-2025 10:13-0400 Body temperature 98 [degF] ArtCorgi PA-C Work Phone: [place] 03-01-2025 10:13-0400 Body weight 81.19 kg ArtCorgi PA-C Work Phone: [place] 03-01-2025 10:13-0400 Diastolic blood pressure 72 mm[Hg] Amanda Daisyt[place] PA-C Work Phone: [place] 03-01-2025 10:13-0400 Heart rate 74 /min Amanda Celoxica PA-C Work Phone: [place] 03-01-2025 10:13-0400 Respiratory rate 16 /min Amanda [place] PA-C Work Phone: [place] 03-01-2025 10:13-0400 SaO2% (BldA) [Mass fraction] 98 % Amanda Celoxica PA-C Work Phone: [place] 03-01-2025 10:13-0400 Systolic blood pressure 175 mm[Hg] Amanda [place] PA-C Work Phone: [place] 02-27-2025 19:49-0400 Body temperature 98 [degF] Amanda Celoxica PA-C Work Phone: [place] 02-27-2025 19:49-0400 Diastolic blood pressure 87 mm[Hg] Amanda [place] PA-C Work Phone: [place] 02-27-2025 19:49-0400 Heart rate 84 /min Amanda Celoxica PA-C Work Phone: [place] 02-27-2025 19:49-0400 Respiratory rate 15 /min Amanda [place] PA-C Work Phone: [place] 02-27-2025 19:49-0400 SaO2% (BldA) [Mass fraction] 97 % Amanda Celoxica PA-C Work Phone: [place] 02-27-2025 19:49-0400 Systolic blood pressure 202 mm[Hg] Amanda [place] PA-C Work Phone: [place] 02-27-2025 17:54-0400 Body height 162.56 cm Amanda Celoxica PA-C Work Phone: [place] 02-27-2025 17:54-0400 Body mass index (BMI) [Ratio] 31.1 kg/m2 [employer]orgi PA-C Work Phone: [place] 02-27-2025 17:54-0400 Body weight 82.28 kg Amanda Celoxica PA-C Work Phone: [place] 02-13-2025 08:12-0400 Body mass index (BMI) [Ratio] 31 kg/m2 ArtCorgi PA-C Work Phone: [place] 02-13-2025 08:12-0400 Body temperature 97.5 [degF] ArtCorgi PA-C Work Phone: [place] 02-13-2025 08:12-0400 Body weight 82.1 kg ArtCorgi PA-C Work Phone: [place] 02-13-2025 08:12-0400 Diastolic blood pressure 81 mm[Hg] ArtCorgi PA-C Work Phone: [place] 02-13-2025 08:12-0400 Heart rate 76 /min ArtCorgi PA-C Work Phone: [place] 02-13-2025 08:12-0400 Respiratory rate 20 /min ArtCorgi PA-C Work Phone: [place] 02-13-2025 08:12-0400 SaO2% (BldA) [Mass fraction] 97 % ArtCorgi PA-C Work Phone: [place] 02-13-2025 08:12-0400 Systolic blood pressure 214 mm[Hg] ArtCorgi PA-C Work Phone: [place] 05-06-2023 10:27-0400 Diastolic Blood Pressure Non-Invasive [address] WILLIAM SCOTT MD [facility] 05-06-2023 10:27-0400 Heart rate 67 /min DR WILLIAM SCOTT MD [facility] 05-06-2023 10:27-0400 Respiratory rate 19 /min DR WILLIAM SCOTT MD [facility] 05-06-2023 10:27-0400 Systolic Blood Pressure Non-Invasive [address] WILLIAM SCOTT MD [facility] 05-06-2023 10:12-0400 Body temperature 98.24 [degF] DR WILLIAM SCOTT MD [address] [place] [address] 05-06-2023 10:12-0400 Diastolic Blood Pressure Non-Invasive [address] WILLIAM SCOTT MD [address] [place] [address] 05-06-2023 10:12-0400 Heart rate 67 /min DR WILLIAM SCOTT MD [address] [place] [address] 05-06-2023 10:12-0400 Respiratory rate 18 /min DR WILLIAM SCOTT MD [address] [place] [address] 05-06-2023 10:12-0400 Systolic Blood Pressure Non-Invasive [address] WILLIAM SCOTT MD [address] [place] [address] 05-06-2023 09:58-0400 Diastolic Blood Pressure Non-Invasive [address] WILLIAM SCOTT MD [address] [place] [address] 05-06-2023 09:58-0400 Heart rate 72 /min DR WILLIAM CSOTT MD [address] [place] [address] 05-06-2023 09:58-0400 Respiratory rate 16 /min DR WILLIAM SCOTT MD [address] [place] [address] 05-06-2023 09:58-0400 Systolic Blood Pressure Non-Invasive [address] WILLIAM SCOTT MD [address] [place] [address] 05-06-2023 06:10-0400 Blood Pressure Cuff Size DR WILLIAM SCOTT MD [address] [place] [address] 05-06-2023 06:10-[address] WILLIAM SCOTT MD [address] [place] [address] 05-06-2023 06:10-[address] WILLIAM Fields [facility] 05-06-2023 06:10-0400 Body height 162.[address] WILLIAM SCOTT MD [facility] 05-06-2023 06:10-0400 Body temperature 98.06 [degF] DR WILLIAM SCOTT MD [facility] 05-06-2023 06:10-0400 Body weight 87.[address] WILLIAM SCOTT MD [facility] 05-06-2023 06:10-0400 Body weight 33.21 kg/m2 DR WILLIAM SCOTT MD [facility] 07-27-2017 11:57-0400 BMI (Body Mass Index) 31.75 kg/m2 Freda Terry COSMETICS MACHINE OPERATOR [facility] Work Phone: 07-27-2017 11:57-0400 Body Temperature 98.8 [degF] Freda Cogar COSMETICS MACHINE OPERATOR [facility] Work Phone: 07-27-2017 11:57-0400 BP Diastolic 86 mm[Hg] Freda Cogar COSMETICS MACHINE OPERATOR [facility] Work Phone: 07-27-2017 11:57-0400 BP Systolic 132 mm[Hg] Freda Cogar COSMETICS MACHINE OPERATOR [facility] Work Phone: 07-27-2017 11:57-0400 Height 162.56 cm Freda Cogar COSMETICS MACHINE OPERATOR [facility] Work Phone: 07-27-2017 11:57-0400 Pulse (Heart Rate) 113 /min Freda Cogar COSMETICS MACHINE OPERATOR [facility] Work Phone: 07-27-2017 11:57-0400 Respiratory Rate 14 /min Freda Cogar COSMETICS MACHINE OPERATOR [facility] Work Phone: 07-27-2017 11:57-0400 Weight 83.92 kg Fredajitendra Frankar COSMETICS MACHINE OPERATOR [facility] Work Phone: 04-08-2016 15:10-0400 BSA (Body Surface Area) 1.91 m2 Freda Stewart MADAI [facility] Work Phone: Encounters Encounter Date Encounter Type Care Provider Facility Start: 04-09-2025 Encounter for other preprocedural examination Papo Sumner [place] Start: 04-09-2025 ambulatory Amos Fontaine Fac ility:[facility] Start: 04-09-2025 Evaluation and manag ement of inpatient Amos Fontaine Facility:[place] Start: 03-21-2025 End: 03-21-2025 ambulatory Pepe Daniel Facility:[facility] Start: 03-05-2025 End: 03-05-[address] Papo Sumner MD -[facility] Work Phone: Start: 03-05-2025 End: 03-05-2025 ambulatory Amanda BRUNNER Facility:[facility] Start: 03-02-2025 End: 03-02-2025 ambulatory Amanda Bahena PA-C Work Phone: [place] Work Phone: Start: 03-02-2025 End: 03-02-2025 Patient encounter procedure Zeinab BRUNNER -Mirela Leung [facility] Work Phone: Start: 03-01-2025 End: 03-01-2025 Patient encounter procedure Zeinab BRUNNER -[facility] Work Phone: Start: 03-01-2025 End: 03-02-2025 ambulatory Amanda Bahena PA Facility:[place] Start: 02-28-2025 End: 02-28-2025 ambulatory [facility] Start: 02-27-2025 End: 02-27-2025 Emergency department patient visit Amanda Bahena PA-C Work Phone: -Emergency Department Work Phone: Start: 02-26-2025 End: 02-26-2025 ambulatory [facility] Start: 02-13-2025 End: 02-13-2025 Patient encounter procedure Tatiana RAMIREZC -[facility] Work Phone: Start: 02-13-2025 End: 02-13-2025 ambulatory Tatiana Rogel NP Facility:[facility] Start: 01-01-2025 End: 01-01-2025 ambulatory [facility] Start: 05-06-2023 End: 05-06-[address] WILLIAM SCOTT MD Facility:[facility] Start: 05-06-2023 End: 05-06-[address] WILLIAM SCOTT MD [facility] Start: 03-20-2023 End: 03-20-2023 ambulatory [place] Work Phone: Start: 03-20-2023 End: 03-20-2023 Patient encounter procedure [place], [facility] Procedures Date Procedure Procedure Detail Performing Clinician Start: 03-02-2025 [facility] Work [facility]: Start: 03-20-2023 Plain x-ray of [...] Date Care Activity Detail Author Start: 02-27-2025 [facility] Start: 07-27-2017 End: 07-27-2017 Appointment Appointment [facility] Work Phone: Patient Education [facility] Work Phone: Patient referral [facility] Work Phone: Payers Date Payer Category Payer Self-pay [id number] 2024 Medicare [id number] 2023 Unknown [id number] 2017 Medicare [id number] 1950 Unknown [id number] 2.16.8 [id number] 1950 Unknown [id number] 2.16.8 [id number] 1950 Unknown [id number] 2.16.8 [id number] 1950 Unknown [id number] 2.16.8 [id number] 1950 Unknown [id number] 2.16.8 [id number] Unknown [id number] Unknown [id number] 2.16.8 [id number] Unknown [id number] 2.16.8 [id number] Unknown [id number] 2.16.8 [id number] Unknown [id number] 2.16.8 [id number] Unknown [id number] 2.16.8 [id number] Unknown [id number] 2.16.8 [id number] Unknown [id number] 2.16.8 [id number] Unknown [id number] 2.16.8 [id number] Unknown [id number] 2.16.8 [id number] Social History Date Type Detail Facility Start: 07-22-2022 Tobacco smoking status NHIS Unknown if ever smoked [place] Start: 03-20-2019 None [facility] Start: 08-03-2020 Spouse/ Signif icant Other [place] Start: 1950 Sex Assigned At Female W [facility] Start: 05-06-2023 End: 03-01-2025 Tobacco smoking status Ex-smoker (finding) [facility] Comment on above: stopped 25 years ago Sex Assigned At Sex [facility] Start: 02-27-2025 Sex Female (finding) [facility] Medical Equipment Procedure Code Equipment Code Equipment Origin al Text Equipment Identifier Dates STENT,URETERAL PIGTAIL [id number] FDA Start: 07-26-2020 STENT,URETERAL PIGTAIL [id number] FDA Start: 07-26-2020 STENT,URETERAL PIGTAIL [id number] FDA Start: 07-26-2020 Functional Status Date Assessment Result Facility 05-06-2023 Functional Status Ambulating in head, Ambulating in room, Awake [facility] 05-06-2023 Functional Status [facility] 05-06-2023 Functional Status Room located n ear nursing station, Room check performed [facility] Mental Status Date Assessment Result Facility 02-27-2025 Cognitive function Level Of Cons ciousness Awake;Alert;Appropriate [facility] Work Phone: 05-06-2023 Mental Status Orientation Oriented x 4 [facility] 05-06-2023 [facility] 05-06-2023 to 04-09-2025 Note Date & Type Note Facility 04-09-2025 Note [facility] Medical Records Department [address] [place] [address] History Physical Exam 04/09/25724 MR#: [id number] Acct: [id number] Name: NOBLE WILDE Rep #: [id number] : 1950 75 From: Papo Sumner MD PCP: Amanda Bahena PA-C Status:ADM IN Location: [facility] AC-TBA-1 HPI - General General Date of Admission: 04/09/25 HPI Narrative NOBLE WILDE, is a 75 F who presents with asymptomatic left carotid stenosis >70%. She is a candidate for either endart or TCAR and she has opted for the open surgical option. She presents now for left carotid endarterectomy. [facility] Medical History Wears glasses Post-menopausal Anxiety Thyroid disease Arthritis [...] 25 mg PO DAILY BP 08/02/17 5 07:00 History ipratropium 0.5 mg-albuterol 3 mg 3 ml inhalation Q4H PRN PRN Sob 0 03/13/19 03/19/19 History (2.5 mg base)/3 mL nebulization /Or Wheezing soln albuterol sulfate 90 mcg/actuation 2 puff inhalation Q4H PRN Unknown Rx aerosol inhaler (Ventolin HFA) shortness of breath or wheezing #8.5 grams cetirizine 10 mg tablet (Zyrtec) 10 mg PO DAILY PRN allergy symptom s 08/24/23 04/08/25 07:00 History naproxen 500 mg tablet 500 mg PO BID PRN pain 08/24/23 12:00 History levothyroxine 150 mcg tablet 150 mcg PO QDAY THYROID 02/14/24 0 04/09/25 04:30 History (Synthroid) fluticasone propionate 230 2 inh inhalation BID ASTHMA #1 ea 02/13/25 04/09/25 04:30 Rx mcg-salmeterol 21 mcg/actuation HFA inhaler (Advair HFA) clonidine HCl 0.1 mg tablet 0.1 mg PO BID HTN #60 tabs 5 04/09/25 04:30 Rx aspirin 81 mg tablet,delayed 81 mg PO DAILY SUPPLEMENT #360 tab s 03/01/25 04/09/25 04:30 Rx release (Adult Aspirin Regimen) clopidogrel 75 mg tablet (Plavix) 75 mg PO DAILY BLOOD THINNER #30 03/01/25 04/09/25 04:30 Rx tabs metoprolol succinate 50 mg 25 mg PO BID BP 03/01/25 04/09/25 04:30 History tablet,extended release 24 hr budesonide-formoterol HFA 160 2 puff inhalation BID ASTHMA 03/2004/09/25 04:30 History mcg-4.5 mcg/actuation aerosol inhaler montelukast 10 mg tablet 10 mg PO QPM ASTHMA 04/09/2504/08 17:00 History Allergy/AdvReac Type Severity Reaction Status Date / Time shellfish derived Allergy Anaphylaxis Verified 04/09/25 06:16 Iodinated Contrast Media AdvReac Intermediate Rash Verified 04/09/25 06:16 acetaminophen (From Rand) AdvReac Constipatio Verified 04/09/25 06:16 n hydrocodone (From Rand) AdvReac Constipatio Verified 04/09/25 06:16 n levofloxacin (From Levaquin) AdvReac GI upset Verified 04/09/25 06:16 losartan AdvReac Abd Verified 04/09/25 06:16 cramps/diarrhea prednisone AdvReac Other Verified 04/09/25 06:16 Family History Father Heart disease Asthma Mother CAD (coronary artery disease) Sister PAD (peripheral artery disease) Cancer Lung Diabetes Grandfather Diabetes Leukemia Surgical History History of bilateral cataract extraction History of cardiac catheterization History of urethral stent Eyelid retraction unspecified eye, unspecified lid History of D C Social History household members: spouse housing: house pets and animals: Yes pets and animals: dog(s) Smoking Status: Former smoker Tobacco: How many years used: 30 how long ago did patient quit smokin, 1ppd second hand exposure: Yes alcohol intake: never substance use type: does not use ROS Constitutional Constitutional: Denies chills, fever(s), frequent falls, lethargy or weakness Eyes Eyes: Denies blind spots, change in vision or loss of vision ENT HEENT: Denies bleeding gums, hoarseness or sore throat Cardiovascular Cardiovascular: Denies abdominal pain, bluish discoloration of hand/feet, chest pain with activity, claudication, cold extremities, cyanosis, dyspnea on exertion, erythema on extremities, irregular heart rhythm, leg edema, leg ulcers, numbness in extremities or weakness in extremities Respiratory/Chest Respiratory/Chest: Denies cough, excessive phlegm production, shortness of breath at rest, shortness of breath wit (more content not included)... [place] 03-02-2025 Radiology Diagnostic study note [facility] [address] [place], [place] [address] CTA Head AND Neck W/ Contrast MR#: [id number] Acct: [id number] Name: NOBLE WILDE Rep #: [id number] : 1950 F 74 From: Gogo Yip MD PCP: Amanda Bahena PA-C Status: REG C MELANIE Study:CTA Head AND Neck W/ Contrast Date of E xam: 03/02/25 Exam# [id number] Ordering Dr: Gerry Carrillo PROCEDURE: CT HEAD WITHOUT CONTRAST AND [...] Posterior circulation: Patent. 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 RIGHT PICA and LEFT AICA are visualized. [...] 4. Additional description as above. Reading Location: [id number] CC: LORNA Bahena; KANNAN Bermudez ~ Adobe Cq Developer: Signed [place] 02-27-2025 Discharge summary [place] 02-27-2025 Discharge summary Note Date/Time February 27, 2025 7:39pm [facility] Medical Records Department [address] [place] [address] Emergency Department Summary 02/27/25 MR#: [id number] Acct: [id number] Name: NOBLE WILDE Rep #:[id number] : 1950 74 From: Des Avila MD PCP: Amanda Bahena PA-C Status:REG E R Location: ED [...] twice daily and hydrochlorothiazide 25 mg daily. Sabihaalso was seen by her doctor. She is [...] Prior similar symptoms: Yes Recent Illness/Hospitalization: Yes [facility] Medical History (Updated 02/27/25 @ 19:38 [...] Reaction Status Date / Time acetaminophen (From Rand) AdvReac Constipatio Verified 02/27/25 17:59 n hydrocodone (From Rand) AdvReac Constipatio Verified 02/27/25 17:59 n levofloxacin [...] (Reason: Sob &/Or Wheezing) Primary Care Provider: Amanda Bahena Referrals: Amnada Bahena PA-C [Primary Care Provider] - 1 Week Print Language: Spanish Disposition Disposition: Home, Self Care What to do if you have Problems For any increased pain, shortness of breath, bleeding, nausea or vomiting, chestpain, or any unexpected problems, contact your Primary Care Provider. Call [facility] ([phone]) or report to the closest Emergency Room. Call 911 if necessary. 02/27/251938 <Electronically signed by Des Avila MD> Cosigner Signature (if applicable): CC: LORNA Bahena ~ Signed [place] Work Phone: 1(383) 525-751304-15-2025 Evaluation note* Diagnosis Onset Date Resolution Status Admit Date Asthma-chronic obstructive pulmonary disease overlap syndrome chronic February 13, 2025 2:03pm Obesity chronic February 13 2:03pm [place] Work Phone: 1(853) 691-597604-15-2025 Evaluation note* Diagnosis Onset Date Resolution Status Admit Date Asthma-chronic obstructive pulmonary disease overlap syndrome chronic February 13, 2025 2:03pm Obesity chronic February 13 2:03pm Carotid stenosis, bilateral chronic March 01, 2025 9:47am Carotid stenosis, bilateral chronic March 05, 2025 12:21pm [place] Work Phone: 1(411) 457-296407-06-2023 Evaluation + Plan noteExtracted from: Title:History and [...] Appointment Date:06/23/2023 01:45:00 PM Scheduled Provider: Location:[facility] Appointment Type:[facility] Hospital Follow Up [facility] 07-06-2023 Hospital Discharge instructions Patient Education 05/06/2023 [...] Document Reviewed: 10/19/2014 ExitCare Patient Information 2015 [employer]. This information is not intended to replace [...] until you are awake and alert. Take zrav-vqy-mcxgbvy and prescription medicines only as told by [...] 08/08/2014 Document Revised: 09/30/2018 Document Reviewed: 02/06/2017 ElseSocial Median Patient Education 2020 [employer] Follow Up Care 05/05/2023 09:44:54 With:IGOR MONTANO MD Address: [address] [facility] [place] [address]- When:06/23/2023 13:45:00 [facility] 07-06-2023 Summary of episode note Discharge Instructions Thank you for allowing [facility] to assist you with your healthcare needs. The following is importantdischarge information regarding your hospital visit. Your Care Team AMANDA BAHENA PA-C What to do next Scheduled Follow-Up Appointments Appointment Type When Where Contact InformationCV OV Hospital Follow Up 06/23/2023 01:45 PM EDT [facility] Follow Up Appointments Follow Up with IGOR MONTANO MD When 06/23/2023 01:45 PM EDT Where: [address] [place] [address]- The Following Activity and Diet Have Been [...] Once a day Refills: 5 Pickup at [facility] 1811 Unchanged aspirin 81 Milligram by mouth [...] Every day Takes 2 gummies Pharmacy Information [facility]: [address] [place], [place] [phone] Please take this list to your next [...] Document Reviewed: 10/19/2014 ExitCare Patient Information 2015 [employer]. This information is not intended to replace [...] until you are awake and alert. Take adqv-evc-hsvdoww and prescription medicines only as told by [...] 08/08/2014 Document Revised: 09/30/2018 Document Reviewed: 02/06/2017 Elsevier Patient Education 2020 [employer] Additional Information VACCINATE! IT SAVES LIVES! Members of the community who have not yet received the COVID-19 vaccine and would like to receive it can visit one of [facility] vaccine clinics. There are many vaccine clinic locations within the [facility]. For locations and available times, please visit [email or web address].[place].gov/. It is important to note that some COVID mobile vaccine clinics are held outdoors and may be canceled in rainy or stormy conditions. To learn more about pediatric vaccinations (ages 5-11), we invite you to visit the [facility] webpage. https://www.[email or web address].org/pages/[email or web address]-Annrn-Dgdzpdlruut-[email or web address]-Kmdhr-Gzr stions.htmlTo learn more about the COVID-19 vaccine, we invite you to visit the CDC website for a list of frequently asked questions.https://www.cdc.gov/coronavirus/2019-ncov/vaccines/faq.html [facility] Patient Portal Access Instructions: Stay connected with your healthcare team and access your personal medical information anytime with the [facility] Patient Portal. Please follow the directions below to create your adicate timeads account: 1.Access the email account you provided upon registration to the hospital/physician office.2.Look for an invitation email from [facility].3.Open the email and access the invitation link: AcceptInvitation to [facility].4.Fill in the required pedro to create your account. To access your account, visit [facility]Dub[facility]OneChart. Click the blue button labeled Access Patient Portal and then log in with the username and password that you created in the steps above. You will be able to view your test results, lab results, a summary of your visits, upcoming appointments and more. There is also a convenient messaging option where you can send secure messages to your p [employer] Intern[employer]. In addition, you will have the ability to download any documents or summaries to your computer and/or send the information securely to a physician. Remember that your healthcare information is confidential, so carefully consider who you will allowto register on the [facility] Patient Portal for access to your information. You can also access the [facility] Patient Portal on the [facility] isa. Simply click on Patient Portal and then log into your account. If you would like to receive a full copy of your medical records, please contact the [facility] Medical Records Department by calling [phone], Wednesday through Wednesday between 8 a.m. and [...] Call your local pharmacy or go to [email or web address] to find one close to you.3.Make use of household items: Use cat litter or old coffee grounds to dispose medications if other options arenot available. Mix your drugs with these household products, seal them in an airtight container andthrow it into the garbage. Call [facility]: [phone] to be sure your drugs can be [...] aware that I should contact my doctor. 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 Allergies NKA [...] mouth once a day. Refills: 5. Unchanged [id number] Milligram by mouth every day. [id number] Milligram by mouth once a day. cyanocobalamin [...] When 06/23/2023 01:45 PM EDT Where: [address] [address] [facility] [place] [address]- Follow Up Appointments No qualifying data available. [...] WILLIAM SCOTT MD on 05/06/2023 09:35 AM [id number] History and physical note Date of Service May 06, 2023 Chief Complaint Chest pain History of Present Illness Patient is a 73-year-old female history of Hypertension, Graves' disease, asthma, anxiety she initially presented to [facility] on 05/02/2023 for an episode of chest [...] , Oral, Daily Synthroid 175 mcg, Oral, Wed//Wed//Wed/Wed Vitamin B12 , Oral, qDay Allergies NKA [...] WILLIAM SCOTT MD on 05/06/2023 09:29 AM [facility] noteNo assessment information availableWC[facility] Work Phone: Hospital course Narrative No data available for this section [facility] Reason for referral (narrative)No reason for referral information availableWCleveland Clinic [facility] Work Phone: Summary Purpose Family History No [...] Will Yes August 03 12:17am Power of Retail Representative Yes August 03 020 12:17am Advance Directive Response Recorded Date/ Time Living Will Yes August 03 12:17am Do you have a Healthcare Power of Retail Representative? Yes August 03, 2020 12:17am Do you have a Healthcare Power of Retail Representative? No February 27, 2025 6:38pm Chief Complaint [...] DATE CREATED AUTHOR AUTHOR'S ORGANIZ ATION 05/12/2023 [facility] DATE CREATED AUTHOR AUTHOR'S ORGANIZ ATION 03/06/[address] [facility] DATE CREATED AUTHOR AUTHOR'S ORGANIZ ATION [facility] Care Teams (unrecognized sec tion and content) Team Status: Active Member Role Status Dates Amanda Bahena PA, PA-C Family Provider Active Amanda Bahena PA, PA-C Primary Care Provider Active Team Status: Inactive Member Role Status Dates Amanda [place] PA, PA-C Primary Care Provider Active Dr. Micah Loza MD Attending Provider, Referring Provi sandor Active Team Status: Active Member Role Status Dates Amanda [place] PA, PA-C Primary Care Provider Active Team Status: Inactive Member Role Status Dates [facility] PA, PA-C Primary Care Provider Active Start: February 13, 2025 End: February 13, 2025 Amanda Bahena PA, PA-C Referring Provider Active Start: February 13, 2025 End: February 13, 2025 Tatiana Rogel EQUIPMENT INSTALLATION PROFESSIONAL, EQUIPMENT INSTALLATION PROFESSIONAL-C Attending Provider Active Start: February 13, 2025 End: February 13, 2025 Team Status: Inactive Member Role Status Dates Amanda Bahena PA, PA-C Primary Care Provider Active Start: February 27, 2025 End: February 27, 2025 Dr. Des Avila MD Emergency Provider Active Sta rt: February 27, 2025 End: February 27, 2025 Team Status: Inactive Member Role Status Dates Amanda Shruti PA, PA-C Primary Care Provider Active Start: February 27, 2025 End: February 27, 2025 Dr. Des Avila MD Attending Provider Active Sta rt: February 27, 2025 End: February 27, 2025 Dr. Des Avila MD Emergency Provider Active Sta rt: February 27, 2025 End: February 27, 2025 Team Status: Inactive Member Role Status Dates Amanda Shruti PA, PA-C Primary Care Provider Active Start: March 01, 2025 End: March 01, 2025 Amanda [place] PA, PA-C Referring Provider Active Start: March 01, 2025 End: March 01, 2025 KANNAN Bermudez Attending Provider Active Star t: March 01, 2025 End: March 01, 2025 Team Status: Inactive Member Role Status Dates Amanda Shruti PA, PA-C Primary Care Provider Active Start: March 02, 2025 End: March 02, 2025 KANNAN Bermudez Attending Provider Active Star t: March 02, 2025 End: March 02, 2025 KANNAN Bermudez Referring Provider Active Star t: March 02, 2025 End: March 02, 2025 Team Status: Inactive Member Role Status Dates Amanda Bahena PA, PA-C Primary Care Provider Active Start: March 05, 2025 End: March 05, 2025 Amanda Shruti PA, PA-C Referring Provider Active Start: March 05, [...] BE BASED ON THE PRIMARY CLINICAL RECORDS. [facility]. provides no warranty or guarantee of the accuracy or completeness of information in this document.
[2025-04-11] VITALS (43 sets, daily range): BP systolic 100–211; BP diastolic 44–101; PULSE 53–90; RESP 11–20; TEMP 36.4–36.8; O2SAT 92–100; BMI 33.1
[2025-04-11] MEDS: Amiodarone 360 MG in Dextrose 5% Viaflo Bag 192.8 ML 16.7 MG CONT INF (00:05)
[2025-04-11] MEDS: Levothyroxine 150 MCG Tablet PO (05:08)
[2025-04-11] MEDS: 0.9% Saline Lock 10 ML Syringe IV ×4 (05:11→21:53)
[2025-04-11] MEDS: Ondansetron 4 MG/2 ML Vial IV ×2 (05:11→15:45)
[2025-04-11] MEDS: Acetaminophen 500 MG Tablet 1000 MG PO ×3 (05:11→21:58)
[2025-04-11] MEDS: hydroCHLOROthiazide 25 MG Tablet PO (07:51)
[2025-04-11] MEDS: Aspirin E.C. 81 MG Tablet PO (07:51)
[2025-04-11] MEDS: Clopidogrel Bisulfate 75 MG Tablet PO (07:51)
[2025-04-11] MEDS: Enoxaparin 40 MG/0.4 ML Syringe SC (07:51)
[2025-04-11] MEDS: Metoprolol(XL)Succ 100 MG Tablet PO ×2 (07:52→21:57)
[2025-04-11] MEDS: Budesonide Respules 0.5 MG/2 ML AMPUL.NEB. INHALATION ×2 (08:01→19:37)
[2025-04-11] MEDS: amLODIPine 10 MG Tablet PO (08:57)
[2025-04-11] MEDS: Labetalol 20 MG/4 ML Vial 10 MG IV (11:55)
[2025-04-11] MEDS: Furosemide 40 MG Tablet PO (13:37)
[2025-04-11] MEDS: amLODIPine 5 MG Tablet PO (13:37)
[2025-04-11] MEDS: hydrALAZINE 50 MG Tablet 100 MG PO (14:33)
[2025-04-11] MEDS: hydrALAZINE 20 MG/ML Vial IV (15:23)
--- NOTE | 2025-04-11 15:43 | CHAPLAIN ---
Type of Pastoral Visit _x__ Initial Visit ___ Follow-up Visit ___ On-call Visit ___ General Patient Visit ___ Spiritual Assessment ___ Family Conference ___ Bereavement ___ Rapid Response ___ Code Blue ___ Other (describe below) Pastoral Care Referral From ___ Patient ___ Family _x__ Nurse ___ Physician ___ Information Manager ___ Housing Case Manager ___ Other (describe below) Sacrament/Intervention _x__ Active listening ___ Anointing ___ Church ___ Bereavement ___ Communion ___ Rosana exploration ___ ___ Life review _x__ Prayer ___ Reconciliation ___ Sacrament of Sick _x__ Supportive presence ___ Wedding ___ Other (describe below) Pastoral Comments RN asked this branch operation evaluation manager to make a visit to the patient; patient is having high BP; spouse is with her; both are welcoming and contribute to conversation about what is happening, how they are coping with the situation, and what they might need; after rosana review and prayer, the patient expresses thanks and appears to be calmer
[2025-04-11] MEDS: HYDROmorphone 0.5 MG/0.5 ML SYRINGE IV (15:45)
--- NOTE | 2025-04-11 16:15 | CT_ITS ---
PROCEDURE: BRAIN/HEAD WITHOUT CONTRAST 04/11/2025 REASON FOR EXAM: HYPERTENSION TECHNIQUE: Head CT without intravenous contrast. Coronal and Sagittal reconstruction series were provided. One or more dose reduction techniques were used (e.g., Automated exposure control, adjustment of the mA and/or kV according to patient size, use of iterative reconstruction technique. RADIATION DOSE SUMMARY: CTDlvol: 44.99 mGy DLP: 829.85 mGycm COMPARISON: None. FINDINGS: The ventricles are normal in size and midline in position. No evidence of acute hemorrhage or infarction. No extra-axial blood or fluid collections. The paranasal sinuses are clear. The mastoid air cells are well aerated. The calvarial vault and skull base are intact. CT/Brain/Head without Contrast IMPRESSION: NO ACUTE FINDINGS Reading Location: [place] [address]
[2025-04-11] MEDS: proCHLORPERazine 10 MG/2 ML Vial IV ×2 (16:26→22:03)
[2025-04-11] MEDS: Nitroprusside 50 MG in Dextrose 5%-Water (250mL Bag) 248 ML 7.6 MG CONT INF (16:49)
--- NOTE | 2025-04-11 18:08 | PN.HOSP_ITS ---
Reason for Visit Reason for Visit: Diagnoses Essential (primary) hypertension (04/09/25) Occlusion and stenosis of bilateral carotid arteries (04/09/25) Encounter for other preprocedural examination (04/09/25) Subjective Subjective Patient was seen and examined today, her blood pressures have been labile today and hard to control at times, placed her on additional medications to see if we can get the blood pressure under control, this afternoon patient became nauseated and vomited, she also had a severe headache, she was sent down for CT of the brain which did not show any acute process. I placed the patient on nitroprusside to try to control her blood pressure, she has gotten Apresoline IV and p.o. today as well as Lasix and metoprolol. I talked several times with Dr. Sumner about her care. Patient converted to sinus rhythm last night approximately 7:30 PM, she is no longer on any amiodarone. Objective Data Objective Data Vital Signs: Vital Signs Temp Pulse Resp BP Pulse Ox O2 Del Method O2 Flow Rate 97.5 F L 80 20 H 130/61 H 92 Nasal Cannula 2 04/11/25 09:00 04/11/25 18:00 04/11/25 18:00 04/11/25 18:00 04/11/25 18:00 04/11/25 18:00 04/11/25 18:00 Oxygen Flow Rate (L/min) 2 Oxygen Delivery Method Nasal Cannula Weight: 84.8 kg Body Mass Index (BMI) 33.1 Intake & Output: Intake and Output for Last 24 Hours 04/09/25 04/10/25 04/11/25 23:59 23:59 23:59 Intake Total 2599.20 / 2605.95 734.00 / 734.00 566.78 / 566.78 Output Total 85 / 495 760 / 760 950 / 950 Balance 2514.20 / 2110.95 -26.00 / -26.00 -383.22 / -383.22 Lab / Micro Data 04/10/25 04:58 04/10/25 04:58 Radiography Diagnostic Testing: Radiology Impression Brain CT 04/11/25 16:15 IMPRESSION: NO ACUTE FINDINGS Reading Location: [place] [address] Physical Exam Narrative alert, oriented x3, no apparent distress and healthy appearing General Appearance: cooperative, well kempt and well developed Orientation / Consciousness: awake, oriented to person, oriented to place and oriented to time HEENT normocephalic and moist oral mucous membranes Eyes PERRL, EOMs intact bilaterally and conjunctivae normal Neck supple, no JVD, thyroid normal and no carotid bruits General: trachea midline Resp normal respiratory effort and clear to auscultation bilaterally Auscultation: Negative for rales, rhonchi or wheezes Cardio S1 normal heart sound, S2 normal heart sound, no murmurs, no rub and no gallops Cardio Narrative: Heart rate and rhythm is irregular GI normal to inspection, nondistended, normoactive bowel sounds, soft to palpation, non-tender and non-distended Extremity no clubbing, cyanosis or edema Skin no rashes or lesions noted General Skin Exam: no breakdown Neuro oriented x3, CN's II-XII intact bilaterally, moves all extremities, no focal motor deficits and no sensory deficits noted Sensorium / Orientation: awake and alert Speech: speech normal Psych affect normal Assessment & Plan Assessment/Plan (1) HTN (hypertension): PLAN: Plan 1. New onset atrial fibrillation with RVR-patient remains in sinus rhythm at this point, continue oral metoprolol at 100 mg twice daily #2 essential hypertension under poor control at this time-blood pressure will be monitored, adjustments on her medication will be made as needed, patient is now on a nitroprusside drip #3 hypothyroidism-patient's T4 slightly high-I do not think this is significant, free T4 is normal #4 carotid occlusive disease-status post carotid endarterectomy left #5 chronic obstructive pulmonary disease-complicates care, management, recovery, and prognosis #6 cephalgia-etiology unclear, patient was medicated for discomfort #7 nausea and vomiting-etiology unclear, patient was given IV Compazine as well as Zofran Total clinical time spent by myself addressing the patient's medical issues, reviewing all of her data, and collaborating with patient's care team: 35 minutes Charges/Coding Visit Charges Inpatient E&M: 64018 Subs Hosp L2
--- NOTE | 2025-04-11 18:11 | PCM.PN.SRG ---
Subjective Subjective Better this evening. A fib has been resolved for last 24 hours but today BP has been difficult to control. At times up to 200 systolic, others more acceptable. Late afternoon had SBP 200s, BAUMANN, N/V. CT head completed and negative for bleeding, nipride drip started. BP better now, symptoms better now. Objective Data Objective Data A&O x 3, NAD RRR Resp non labored motor/sensory intact bilateral, CN intact Inc C/D/I Vital Signs: Vital Signs Temp Pulse Resp BP Pulse Ox O2 Del Method O2 Flow Rate 97.5 F L 80 20 H 130/61 H 92 Nasal Cannula 2 04/11/25 09:00 04/11/25 18:00 04/11/25 18:00 04/11/25 18:00 04/11/25 18:00 04/11/25 18:00 04/11/25 18:00 Oxygen Flow Rate (L/min) 2 Oxygen Delivery Method Nasal Cannula Weight: 186 lb 15.232 oz Body Mass Index (BMI) 33.1 Intake & Output: Intake and Output for Last 24 Hours 04/09/25 04/10/25 04/11/25 23:59 23:59 23:59 Intake Total 2599.20 / 2605.95 734.00 / 734.00 566.78 / 566.78 Output Total 85 / 495 760 / 760 950 / 950 Balance 2514.20 / 2110.95 -26.00 / -26.00 -383.22 / -383.22 Lab / Micro Data 04/10/25 04:58 04/10/25 04:58 Radiography Diagnostic Testing: Radiology Impression Brain CT 04/11/25 16:15 IMPRESSION: NO ACUTE FINDINGS Reading Location: [place] [address] Assessment & Plan Assessment/Plan (1) Carotid stenosis, bilateral: PLAN: -POD # 2 left CEA with reperfusion syndrome, HTN out of control -CT head negative -cont to escaate PO regimen, PRN IV and drips as needed -hospitalist care appreciated
--- NOTE | 2025-04-11 20:51 | CPS ---
Only pulmicort aerosal treatment given at this time. Albuterol held due to patient having an episode of a-fib RVR.
[2025-04-11] MEDS: hydrALAZINE 50 MG Tablet PO (21:56)
[2025-04-11] MEDS: Montelukast 10 MG Tablet PO (21:57)
[2025-04-12] VITALS (55 sets, daily range): BP systolic 100–166; BP diastolic 41–73; PULSE 66–86; RESP 13–69; TEMP 36.2–37.1; O2SAT 91–98; BMI 33.0
[2025-04-12] MEDS: hydrALAZINE 50 MG Tablet PO ×2 (05:03→10:24)
[2025-04-12] MEDS: Levothyroxine 150 MCG Tablet PO (05:04)
[2025-04-12] MEDS: Budesonide Respules 0.5 MG/2 ML AMPUL.NEB. INHALATION ×2 (07:18→18:59)
[2025-04-12] MEDS: Acetaminophen 500 MG Tablet 1000 MG PO ×2 (07:48→18:44)
[2025-04-12] MEDS: Metoprolol(XL)Succ 100 MG Tablet PO (08:11)
[2025-04-12] MEDS: Nitroprusside 50 MG in Dextrose 5%-Water (250mL Bag) 248 ML 22.8 MG CONT INF (08:25)
[2025-04-12] MEDS: Clopidogrel Bisulfate 75 MG Tablet PO (09:05)
[2025-04-12] MEDS: Aspirin E.C. 81 MG Tablet PO (09:05)
[2025-04-12] MEDS: Furosemide 40 MG Tablet PO ×2 (09:05→16:30)
[2025-04-12] MEDS: Enoxaparin 40 MG/0.4 ML Syringe SC (09:05)
[2025-04-12] MEDS: amLODIPine 10 MG Tablet PO (09:06)
[2025-04-12] MEDS: Loratadine 10 MG Tablet PO (09:21)
[2025-04-12] MEDS: Metoprolol(XL)Succ 50 MG Tablet PO (10:24)
--- NOTE | 2025-04-12 11:35 | PCM.PN.SRG ---
Subjective Subjective I saw patient sitting in bed this morning getting ready to get up to the bedside chair. She relates that she is feeling better today compared to yesterday, she reports she still has a headache but very mild. She has no other complaints. Afib has remained resolved but BPs have remained labile. She is still on the nitroprusside drip, systolic BP 140 on my exam. Objective Data Objective Data Vital Signs: Vital Signs Temp Pulse Resp BP Pulse Ox O2 Del Method O2 Flow Rate 97.9 F 74 16 140/61 H 96 Nasal Cannula 2 04/12/25 08:00 04/12/25 11:00 04/12/25 11:00 04/12/25 11:00 04/12/25 11:00 04/12/25 11:00 04/12/25 11:00 Oxygen Flow Rate (L/min) 2 Oxygen Delivery Method Nasal Cannula Weight: 186 lb 4.65 oz Body Mass Index (BMI) 33.0 Intake & Output: Intake and Output for Last 24 Hours 04/10/25 04/11/25 04/12/25 23:59 23:59 23:59 Intake Total 734.00 / 734.00 643.30 / 658.60 215.67 / 215.67 Output Total 760 / 760 950 / 1150 400 / 400 Balance -26.00 / -26.00 -306.70 / -491.40 -184.33 / -184.33 Lab / Micro Data 04/10/25 04:58 04/10/25 04:58 Radiography Diagnostic Testing: Radiology Impression Brain CT 04/11/25 16:15 IMPRESSION: NO ACUTE FINDINGS Reading Location: [place] [id number] Physical Exam Const alert, oriented x3 and no apparent distress General Appearance: cooperative and comfortable HEENT normocephalic, head/scalp atraumatic, hearing grossly normal bilaterally, external ears normal and external nose normal Eyes EOMs intact bilaterally General Eye: normal appearance of both eyes Neck Neck Narrative: L CEA incision site satisfactory in appearance, skin glue intact, no increased swelling. General: trachea midline Resp normal respiratory effort, normal air movement, no retractions and no use of accessory muscles Effort and Inspection: able to speak in complete sentences; Negative for labored, grunting or stridor Cardio regular rate and regular rhythm Extremity normal to inspection, full ROM and no clubbing, cyanosis or edema General Extremity: normal exam except as noted Skin no rashes or lesions noted Trauma: no lacerations or abrasions Neuro oriented x3, CN's II-XII intact bilaterally, moves all extremities, no focal motor deficits and no sensory deficits noted Speech: speech normal Psych mental status grossly normal, thought process normal, cooperative, affect normal, speech normal and activity/motor behavior normal Appearance: grossly normal Attitude: calm and engaged Activity / Motor Behavior: appropriate eye contact Speech: normal speech Assessment & Plan Assessment/Plan (1) Carotid stenosis, bilateral: PLAN: She is POD # 3 left CEA with reperfusion syndrome, HTN remains difficult to control, still on nitroprusside drip. Appreciate hospitalist care, they have continued to escalate her PO regimen today. From surgical perspective, would be content with systolic BP <150 at this time. Charges/Coding Procedures Integumentary [id number]: [id number] Global Visit
[2025-04-12] MEDS: TITRATION PARAMETER CHANGE 1 EACH IV (12:06)
[2025-04-12] MEDS: hydrALAZINE 50 MG Tablet 100 MG PO ×2 (14:01→21:41)
[2025-04-12] MEDS: hydrALAZINE 20 MG/ML Vial 10 MG IV (16:31)
[2025-04-12] MEDS: cloNIDine HCl 0.1 MG Tablet PO (18:25)
--- NOTE | 2025-04-12 19:02 | PCM.PN.HOSP ---
Reason for Visit Reason for Visit: Diagnoses Essential (primary) hypertension (04/09/25) Occlusion and stenosis of bilateral carotid arteries (04/09/25) Encounter for other preprocedural examination (04/09/25) Subjective Subjective Patient was seen and examined today, I have taken her off the night pride drip but unfortunately her pressure is still above 160. I have elected to place her back on clonidine 0.1 mg twice daily and continue with her present oral blood pressure medications, I increased her metoprolol today to 150 mg twice daily, her Apresoline was increased to 100 mg 3 times daily, and she remains on Lasix 40 mg twice a day and amlodipine 10 mg daily. Patient will be reevaluated tomorrow for possible discharge home. Objective Data Objective Data Vital Signs: Vital Signs Temp Pulse Resp BP Pulse Ox O2 Del Method O2 Flow Rate 97.9 F 78 20 H 160/73 H 93 Room Air 2 04/12/25 16:00 04/12/25 19:00 04/12/25 19:00 04/12/25 19:00 04/12/25 19:00 04/12/25 19:00 04/12/25 14:00 FiO2 40 04/12/25 16:00 Oxygen Flow Rate (L/min) 2 Oxygen Delivery Method Room Air Weight: 84.5 kg Body Mass Index (BMI) 33.0 Intake & Output: Intake and Output for Last 24 Hours 04/10/25 04/11/25 04/12/25 23:59 23:59 23:59 Intake Total 734.00 / 734.00 643.30 / 658.60 264.56 / 264.56 Output Total 760 / 760 950 / 1150 400 / 400 Balance -26.00 / -26.00 -306.70 / -491.40 -135.44 / -135.44 Lab / Micro Data 04/10/25 04:58 04/10/25 04:58 Physical Exam Narrative alert, oriented x3, no apparent distress and healthy appearing General Appearance: cooperative, well kempt and well developed Orientation / Consciousness: awake, oriented to person, oriented to place and oriented to time HEENT normocephalic and moist oral mucous membranes Eyes PERRL, EOMs intact bilaterally and conjunctivae normal Neck supple, no JVD, thyroid normal and no carotid bruits General: trachea midline Resp normal respiratory effort and clear to auscultation bilaterally Auscultation: Negative for rales, rhonchi or wheezes Cardio S1 normal heart sound, S2 normal heart sound, no murmurs, no rub and no gallops Cardio Narrative: Heart rate and rhythm is irregular GI normal to inspection, nondistended, normoactive bowel sounds, soft to palpation, non-tender and non-distended Extremity no clubbing, cyanosis or edema Skin no rashes or lesions noted General Skin Exam: no breakdown Neuro oriented x3, CN's II-XII intact bilaterally, moves all extremities, no focal motor deficits and no sensory deficits noted Sensorium / Orientation: awake and alert Speech: speech normal Psych affect normal Assessment & Plan Assessment/Plan (1) Carotid stenosis, bilateral: (2) HTN (hypertension): PLAN: Plan 1. New onset atrial fibrillation with RVR-patient remains in sinus rhythm at this point, continue oral metoprolol at 150 mg twice daily #2 essential hypertension under poor control at this time-blood pressure will be monitored, adjustments on her medication will be made as needed, patient is now on a nitroprusside drip #3 hypothyroidism-patient's T4 slightly high-I do not think this is significant, free T4 is normal #4 carotid occlusive disease-status post carotid endarterectomy left #5 chronic obstructive pulmonary disease-complicates care, management, recovery, and prognosis #6 cephalgia-etiology unclear, resolved at this time #7 nausea and vomiting-resolved at this time Total clinical time spent by myself addressing the patient's medical issues, reviewing all of her data, and collaborating with patient's care team: 35 minutes Charges/Coding Visit Charges Inpatient E&M: 81235 Subs Hosp L2
[2025-04-12] MEDS: Montelukast 10 MG Tablet PO (21:41)
[2025-04-12] MEDS: Metoprolol(XL)Succ 50 MG Tablet 150 MG PO (21:41)
[2025-04-13] VITALS (15 sets, daily range): BP systolic 128–156; BP diastolic 50–70; PULSE 60–79; RESP 13–22; TEMP 36.6–36.8; O2SAT 90–97
[2025-04-13] MEDS: Ondansetron 4 MG/2 ML Vial IV (03:14)
[2025-04-13] MEDS: 0.9% Saline Lock 10 ML Syringe IV (03:14)
[2025-04-13] MEDS: Acetaminophen 500 MG Tablet 1000 MG PO (03:16)
[2025-04-13] MEDS: hydrALAZINE 50 MG Tablet 100 MG PO (06:16)
[2025-04-13] MEDS: Levothyroxine 150 MCG Tablet PO (06:19)
[2025-04-13] MEDS: Budesonide Respules 0.5 MG/2 ML AMPUL.NEB. INHALATION (06:48)
--- NOTE | 2025-04-13 06:49 | CPS ---
Holding on Albuterol due to recent AFib RVR post op
[2025-04-13] MEDS: Aspirin E.C. 81 MG Tablet PO (08:15)
[2025-04-13] MEDS: Metoprolol(XL)Succ 50 MG Tablet 150 MG PO (09:10)
[2025-04-13] MEDS: Clopidogrel Bisulfate 75 MG Tablet PO (09:10)
[2025-04-13] MEDS: Furosemide 40 MG Tablet PO (09:10)
[2025-04-13] MEDS: amLODIPine 10 MG Tablet PO (09:10)
--- NOTE | 2025-04-13 09:47 | PCM.PN.SRG ---
Subjective Subjective She is feeling well this morning. Her blood pressures have been much improved, 140s systolic this morning. Her clonidine was restarted and other BP medication doses increased and she is tolerating these well so far. She does not have BAUMANN, N/V, or other concerns this morning. She is eager to go home. Objective Data Objective Data Vital Signs: Vital Signs Temp Pulse Resp BP Pulse Ox O2 Del Method O2 Flow Rate 97.8 F 79 20 H 137/50 H 92 Room Air 2 04/13/25 08:00 04/13/25 09:10 04/13/25 09:00 04/13/25 09:00 04/13/25 09:00 04/13/25 09:00 04/12/25 14:00 FiO2 40 04/12/25 16:00 Oxygen Flow Rate (L/min) 2 Oxygen Delivery Method Room Air Weight: 186 lb 4.65 oz Body Mass Index (BMI) 33.0 Intake & Output: Intake and Output for Last 24 Hours 04/11/25 04/12/25 04/13/25 23:59 23:59 23:59 Intake Total 643.30 / 658.60 264.56 / 264.56 Output Total 950 / 1150 400 / 400 Balance -306.70 / -491.40 -135.44 / -135.44 Lab / Micro Data 04/10/25 04:58 04/10/25 04:58 Physical Exam Const alert, oriented x3 and no apparent distress General Appearance: cooperative and comfortable HEENT normocephalic, head/scalp atraumatic, hearing grossly normal bilaterally, external ears normal and external nose normal Eyes EOMs intact bilaterally General Eye: normal appearance of both eyes Neck Neck Narrative: L CEA incision site satisfactory in appearance, skin glue intact, no increased swelling. General: trachea midline Resp normal respiratory effort, normal air movement, no retractions and no use of accessory muscles Effort and Inspection: able to speak in complete sentences; Negative for labored, grunting or stridor Cardio regular rate and regular rhythm Extremity normal to inspection, full ROM and no clubbing, cyanosis or edema General Extremity: normal exam except as noted Skin no rashes or lesions noted Trauma: no lacerations or abrasions Neuro oriented x3, CN's II-XII intact bilaterally, moves all extremities, no focal motor deficits and no sensory deficits noted Speech: speech normal Psych mental status grossly normal, thought process normal, cooperative, affect normal, speech normal and activity/motor behavior normal Appearance: grossly normal Attitude: calm and engaged Activity / Motor Behavior: appropriate eye contact Speech: normal speech Assessment & Plan Assessment/Plan (1) Carotid stenosis, bilateral: PLAN: She is POD # 4 left CEA. Her hypertension is now much improved and stably controlled on current regimen which has been titrated by hospitalist, their assistance is much appreciated. Plan is for discharge home today.
--- NOTE | 2025-04-13 09:57 | PCM.DC.SUM ---
Providers Date of Admission: 04/09/25 Date of Discharge: 04/13/25 Primary Care Physician: Amanda Bahena PA-C Consultations 04/10/25 08:31 Consult: Hospitalist Routine Consulting Provider: Maximiliano Meneses Reason for Consult: HTN EMERGENT Consult: No MD Notified: Yes Date Notified: 04/09/25 Time Notified: 09:35 Method of Notification: Verbal Comments:: Dr. Guerrero Reason For Visit: left Carotid Endarterectomy Diagnosis Discharge Diagnosis (1) Carotid stenosis, bilateral: Status: Chronic Code(s): I65.23 - Occlusion and stenosis of bilateral carotid arteries (2) HTN (hypertension): Status: Chronic Code(s): I10 - Essential (primary) hypertension Plan 1. New onset atrial fibrillation with RVR-patient remains in sinus rhythm at this point, continue oral metoprolol at 150 mg twice daily #2 essential hypertension under poor control at this time-blood pressure will be monitored, adjustments on her medication will be made as needed, patient is now on a nitroprusside drip #3 hypothyroidism-patient's T4 slightly high-I do not think this is significant, free T4 is normal #4 carotid occlusive disease-status post carotid endarterectomy left #5 chronic obstructive pulmonary disease-complicates care, management, recovery, and prognosis #6 cephalgia-etiology unclear, resolved at this time #7 nausea and vomiting-resolved at this time Total clinical time spent by myself addressing the patient's medical issues, reviewing all of her data, and collaborating with patient's care team: 35 minutes Medications at Discharge Home Medications hydrochlorothiazide 25 mg tablet 25 mg PO DAILY BP 08/02/17 ipratropium 0.5 mg-albuterol 3 mg (2.5 mg base)/3 mL nebulization soln 3 ml inhalation Q4H PRN PRN Sob &/Or Wheezing 03/13/19 albuterol sulfate 90 mcg/actuation aerosol inhaler (Ventolin HFA) 2 puff inhalation Q4H PRN shortness of breath or wheezing #8.5 grams 08/24/23 cetirizine 10 mg tablet (Zyrtec) 10 mg PO DAILY PRN allergy symptoms 08/24/23 naproxen 500 mg tablet 500 mg PO BID PRN pain 08/24/23 levothyroxine 150 mcg tablet (Synthroid) 150 mcg PO QDAY THYROID 04/15/24 fluticasone propionate 230 mcg-salmeterol 21 mcg/actuation HFA inhaler (Advair HFA) 2 inh inhalation BID ASTHMA #1 ea 02/13/25 clonidine HCl 0.1 mg tablet 0.1 mg PO BID HTN #60 tabs 02/27/25 aspirin 81 mg tablet,delayed release (Adult Aspirin Regimen) 81 mg PO DAILY SUPPLEMENT #360 tabs 03/01/25 clopidogrel 75 mg tablet (Plavix) 75 mg PO DAILY BLOOD THINNER #30 tabs 03/01/25 metoprolol succinate 50 mg tablet,extended release 24 hr 25 mg PO BID BP 03/01/25 budesonide-formoterol HFA 160 mcg-4.5 mcg/actuation aerosol inhaler 2 puff inhalation BID ASTHMA 03/20/25 montelukast 10 mg tablet 10 mg PO QPM ASTHMA 04/09/25 Weight / BMI Weight Weight: 84.5 kg Body Mass Index (BMI) 33.0 ABG / Lab / Microbiology Data 04/10/25 04:58 04/10/25 04:58 Meaningful Use Info Ischemic Stroke Statin Dosing Therapy Reference: STATIN DOSE THERAPY REFERENCE: * Patients > 75 years receive moderate or high dose statin therapy. * Patients 75 years or YOUNGER should receive HIGH intensity statin dose unless contraindicated. You will be required to document reason for non-treatment if statin daily dose does not meet guidelines. HIGH DOSE STATIN THERAPY DAILY Atorvastatin > than or = to 40 mg Rosuvastatin > than or = to 20 mg Amlodipine + Atorvastatin > than or = to 2.5/40 mg Ezetimibe + Simvastatin 10/80 mg Simvastatin 80mg Discharge Plan Admission Admit Date/Time: 04/09/25 10:34 Attending Provider: Papo Sumner Primary Care Provider: Amanda Bahena Consulting Providers: Amos Fontaine; Matteo Griggs; Destiny Banerjee; Markus Boles; Markus Serra; Papo Oconnor; Kathrine Triplett; Jose A Murry; Maame Reese; Wiley Guerrero; Steph Travis; Albaro Lee; Johnie Ratliff; Michele Joyce; Waleska Wallace; Italo Petty; Maximo Au Instructions Additional Instructions / Restrictions: INCISION CARE: You have a small bandage on your neck over the site from which the surgical drain was removed. You may remove this bandage tonight after you shower. As long as there is no residual drainage, you may leave this open to air. If you do notice some continued drainage, you may re-cover with a Band-Aid. Your neck incision site is covered with skin glue which will continue to protect it. The skin glue will peel/flake off on its own over the next few weeks. Please do not pick at it. You may shower tonight. It is okay for soap and water to rinse over the incision site, pat to dry. Do not submerge the incision site in water such as to take a bath or go swimming etc. for 3 weeks. ACTIVITY INSTRUCTIONS Do not lift greater than 20 pounds for 3 weeks. Otherwise, please continue with activity as tolerated. Do not drive until you can turn your head well enough to safely check your blind spots. FOLLOW-UP INSTRUCTIONS You are scheduled for follow-up in the office on 04/24/25. If you need to change this appointment or have any other questions/concerns, please call the office at [phone]. Discharge Orders/Prescriptions Prescriptions: No Action naproxen 500 mg tablet 500 mg PO BID PRN (Reason: pain) cetirizine [Zyrtec] 10 mg tablet 10 mg PO DAILY PRN (Reason: allergy symptoms) albuterol sulfate [Ventolin HFA] 90 mcg/actuation HFA aerosol inhaler 2 puff inhalation Q4H PRN (Reason: shortness of breath or wheezing) Qty: 8.5 6RF levothyroxine [Synthroid] 150 mcg tablet 150 mcg PO QDAY fluticasone propion-salmeterol [Advair HFA] 230-21 mcg/actuation HFA aerosol inhaler 2 inh inhalation BID Qty: 1 11RF Patient Comments: WILL START TAKING AFTER DONE WITH SYMBICORT. HAD TO SWITCH INHALERS D/T INSURANCE metoprolol succinate 50 mg tablet extended release 24 hr 25 mg PO BID clopidogrel [Plavix] 75 mg tablet 75 mg PO DAILY Qty: 30 1RF aspirin [Adult Aspirin Regimen] 81 mg tablet,delayed release (DR/EC) 81 mg PO DAILY Qty: 360 0RF hydrochlorothiazide 25 MG tablet 25 mg PO DAILY Patient Comments: bp ipratropium-albuterol 3 ML solution for nebulization 3 ml INHALATION Q4H PRN PRN (Reason: Sob &/Or Wheezing) clonidine HCl 0.1 mg tablet 0.1 mg PO BID Qty: 60 0RF budesonide-formoterol 160-4.5 mcg/actuation HFA aerosol inhaler 2 puff inhalation BID Patient Comments: LAST DJOSE WILL BE 03/30/25 D/T TO INSURANCE CHANGING. WILL START ADVAIR THEN montelukast 10 mg tablet 10 mg PO QPM Other Ambulatory Orders: 12 Lead EKG (Routine) Timeframe: [id number] Location: None Selected Ordered By: Dr. Matt Ibarra Referrals / Follow Up: Amanda Bahena, PA-C [Primary Care Provider] -
--- NOTE | 2025-04-13 09:58 | PCM.DC ---
Discharge Instructions Diet Discharge Diet: No restrictions DC O2, CPAP, BIPAP needs Home O2 Discharge instructions: No Dressing / Incision Discharge Activity: Return to Normal Activity and May Drive Weight Bearing Status: Full weight bearing Follow Up Care Test Results: Test results from this visit will be discussed in further detail at your follow-up appointment, if applicable. Discharge Plan Admission Admit Date/Time: 04/09/25 10:34 Primary Reason for Your Visit: Left carotid endarterectomy Attending Provider: Papo Sumner Primary Care Provider: Amanda Bahena Consulting Providers: Amos Fontaine; Mattoe Griggs; Destiny Banerjee; Markus Boles; Markus Serra; Papo Oconnor; Kathrine Triplett; Jose A Murry; Maame Reese; Wiley Guerrero; Steph Travis; Albaro Lee; Johnie Ratliff; Michele Joyce; Waleska Wallace; Italo Petty; Maximo Au Instructions Additional Instructions / Restrictions: INCISION CARE: You have a small bandage on your neck over the site from which the surgical drain was removed. You may remove this bandage tonight after you shower. As long as there is no residual drainage, you may leave this open to air. If you do notice some continued drainage, you may re-cover with a Band-Aid. Your neck incision site is covered with skin glue which will continue to protect it. The skin glue will peel/flake off on its own over the next few weeks. Please do not pick at it. You may shower tonight. It is okay for soap and water to rinse over the incision site, pat to dry. Do not submerge the incision site in water such as to take a bath or go swimming etc. for 3 weeks. ACTIVITY INSTRUCTIONS Do not lift greater than 20 pounds for 3 weeks. Otherwise, please continue with activity as tolerated. Do not drive until you can turn your head well enough to safely check your blind spots. FOLLOW-UP INSTRUCTIONS You are scheduled for follow-up in the office on 04/24/25. If you need to change this appointment or have any other questions/concerns, please call the office at [phone]. Discharge Orders/Prescriptions Prescriptions: New furosemide 40 mg Tablet 40 mg PO BIDLX Qty: 60 0RF clonidine HCl 0.1 mg Tablet 0.1 mg PO BID Qty: 60 0RF metoprolol succinate 50 mg Tablet Extended Release 24 Hr 150 mg PO BID Qty: 180 0RF hydralazine 50 mg Tablet 100 mg PO TID Qty: 180 0RF potassium chloride [Klor-Con 10] 10 mEq tablet extended release 20 meq PO DAILY Qty: 60 0RF amlodipine 10 mg Tablet 10 mg PO DAILY Qty: 30 0RF Continued cetirizine [Zyrtec] 10 mg tablet 10 mg PO DAILY PRN (Reason: allergy symptoms) albuterol sulfate [Ventolin HFA] 90 mcg/actuation HFA aerosol inhaler 2 puff inhalation Q4H PRN (Reason: shortness of breath or wheezing) Qty: 8.5 6RF levothyroxine [Synthroid] 150 mcg tablet 150 mcg PO QDAY fluticasone propion-salmeterol [Advair HFA] 230-21 mcg/actuation HFA aerosol inhaler 2 inh inhalation BID Qty: 1 11RF Patient Comments: WILL START TAKING AFTER DONE WITH SYMBICORT. HAD TO SWITCH INHALERS D/T INSURANCE clopidogrel [Plavix] 75 mg tablet 75 mg PO DAILY Qty: 30 1RF aspirin [Adult Aspirin Regimen] 81 mg tablet,delayed release (DR/EC) 81 mg PO DAILY Qty: 360 0RF ipratropium-albuterol 3 ML solution for nebulization 3 ml INHALATION Q4H PRN PRN (Reason: Sob &/Or Wheezing) clonidine HCl 0.1 mg tablet 0.1 mg PO BID Qty: 60 0RF budesonide-formoterol 160-4.5 mcg/actuation HFA aerosol inhaler 2 puff inhalation BID Patient Comments: LAST DJOSE WILL BE 03/30/25 D/T TO INSURANCE CHANGING. WILL START ADVAIR THEN montelukast 10 mg tablet 10 mg PO QPM Discontinued naproxen 500 mg tablet 500 mg PO BID PRN (Reason: pain) metoprolol succinate 50 mg tablet extended release 24 hr 25 mg PO BID hydrochlorothiazide 25 MG tablet 25 mg PO DAILY Patient Comments: bp Other Ambulatory Orders: 12 Lead EKG (Routine) Timeframe: [id number] Location: None Selected Ordered By: Dr. Matt Ibarra Referrals / Follow Up: Papo Sumner MD [Med Staff - Active Staff] - See Referral Note (As scheduled) Aamnda Bahena PA-C [Primary Care Provider] - In 1 Week (You will need to have a BMP (lab work) done to check your potassium) Disposition Disposition (needs filled in before D/C Order can be placed): Home, Self Care
--- NOTE | 2025-04-13 10:13 | PCM.PN.HOSP ---
Reason for Visit Reason for Visit: Diagnoses Essential (primary) hypertension (04/09/25) Occlusion and stenosis of bilateral carotid arteries (04/09/25) Encounter for other preprocedural examination (04/09/25) Subjective Subjective Patient was seen and examined today, her systolic blood pressure is in the 140s today, I talked with vascular surgery about discharging the patient today. Her prescriptions were transmitted to her pharmacy. Objective Data Objective Data Vital Signs: Vital Signs Temp Pulse Resp BP Pulse Ox O2 Del Method O2 Flow Rate 97.8 F 79 20 H 137/50 H 92 Room Air 2 04/13/25 08:00 04/13/25 09:10 04/13/25 09:00 04/13/25 09:00 04/13/25 09:00 04/13/25 09:00 04/12/25 14:00 FiO2 40 04/12/25 16:00 Oxygen Flow Rate (L/min) 2 Oxygen Delivery Method Room Air Weight: 84.5 kg Body Mass Index (BMI) 33.0 Intake & Output: Intake and Output for Last 24 Hours 04/11/25 04/12/25 04/13/25 23:59 23:59 23:59 Intake Total 643.30 / 658.60 264.56 / 264.56 Output Total 950 / 1150 400 / 400 Balance -306.70 / -491.40 -135.44 / -135.44 Lab / Micro Data 04/10/25 04:58 04/10/25 04:58 Physical Exam Narrative alert, oriented x3, no apparent distress and healthy appearing General Appearance: cooperative, well kempt and well developed Orientation / Consciousness: awake, oriented to person, oriented to place and oriented to time HEENT normocephalic and moist oral mucous membranes Eyes PERRL, EOMs intact bilaterally and conjunctivae normal Neck supple, no JVD, thyroid normal and no carotid bruits General: trachea midline Resp normal respiratory effort and clear to auscultation bilaterally Auscultation: Negative for rales, rhonchi or wheezes Cardio S1 normal heart sound, S2 normal heart sound, no murmurs, no rub and no gallops Cardio Narrative: Heart rate and rhythm is irregular GI normal to inspection, nondistended, normoactive bowel sounds, soft to palpation, non-tender and non-distended Extremity no clubbing, cyanosis or edema Skin no rashes or lesions noted General Skin Exam: no breakdown Neuro oriented x3, CN's II-XII intact bilaterally, moves all extremities, no focal motor deficits and no sensory deficits noted Sensorium / Orientation: awake and alert Speech: speech normal Psych affect normal Assessment & Plan Assessment/Plan (1) Carotid stenosis, bilateral: (2) HTN (hypertension): PLAN: Plan 1. New onset atrial fibrillation with RVR-patient remains in sinus rhythm at this point, continue oral metoprolol at 150 mg twice daily, patient will not be anticoagulated for now due to her recent carotid surgery, this will be addressed by vascular surgery after her appointment in approximately 2 weeks #2 essential hypertension under adequate control, her prescriptions were transmitted to her pharmacy #3 hypothyroidism-patient's T4 slightly high-I do not think this is significant, free T4 is normal #4 carotid occlusive disease-status post carotid endarterectomy left #5 chronic obstructive pulmonary disease-complicates care, management, recovery, and prognosis #6 cephalgia-etiology unclear, resolved at this time #7 nausea and vomiting-resolved at this time Patient appears medically stable for discharge at this time Total clinical time spent by myself addressing the patient's medical issues, reviewing all of her data, and collaborating with patient's care team: 35 minutes Charges/Coding Visit Charges Inpatient E&M: 61642 Subs Hosp L2
[2025-04-13] MEDS: cloNIDine HCl 0.1 MG Tablet PO (10:20)
--- NOTE | 2025-04-17 10:09 | PCM.DC.SUM ---
Providers Date of Admission: 04/09/25 Primary Care Physician: Amanda Bahena PA-C Consultations 04/10/25 08:31 Consult: Hospitalist Routine Consulting Provider: Maximiliano Meneses Reason for Consult: HTN EMERGENT Consult: No MD Notified: Yes Date Notified: 04/09/25 Time Notified: 09:35 Method of Notification: Verbal Comments:: Dr. Guerrero Reason For Visit: left Carotid Endarterectomy Diagnosis Discharge Diagnosis (1) Carotid stenosis, bilateral: Status: Chronic Code(s): I65.23 - Occlusion and stenosis of bilateral carotid arteries Plan: She is POD # 4 left CEA. Her hypertension is now much improved and stably controlled on current regimen which has been titrated by hospitalist, their assistance is much appreciated. Plan is for discharge home today. (2) HTN (hypertension): Status: Chronic Code(s): I10 - Essential (primary) hypertension Medications at Discharge Home Medications ipratropium 0.5 mg-albuterol 3 mg (2.5 mg base)/3 mL nebulization soln 3 ml inhalation Q4H PRN PRN Sob &/Or Wheezing 03/13/19 albuterol sulfate 90 mcg/actuation aerosol inhaler (Ventolin HFA) 2 puff inhalation Q4H PRN shortness of breath or wheezing #8.5 grams 08/24/23 cetirizine 10 mg tablet (Zyrtec) 10 mg PO DAILY PRN allergy symptoms 08/24/23 levothyroxine 150 mcg tablet (Synthroid) 150 mcg PO QDAY THYROID 02/14/24 fluticasone propionate 230 mcg-salmeterol 21 mcg/actuation HFA inhaler (Advair HFA) 2 inh inhalation BID ASTHMA #1 ea 02/13/25 clonidine HCl 0.1 mg tablet 0.1 mg PO BID HTN #60 tabs 02/27/25 aspirin 81 mg tablet,delayed release (Adult Aspirin Regimen) 81 mg PO DAILY SUPPLEMENT #360 tabs 03/01/25 clopidogrel 75 mg tablet (Plavix) 75 mg PO DAILY BLOOD THINNER #30 tabs 03/01/25 budesonide-formoterol HFA 160 mcg-4.5 mcg/actuation aerosol inhaler 2 puff inhalation BID ASTHMA 03/20/25 montelukast 10 mg tablet 10 mg PO QPM ASTHMA 06/09/25 amlodipine 10 mg tablet 10 mg PO DAILY #30 tabs 04/13/25 clonidine HCl 0.1 mg tablet 0.1 mg PO BID #60 tabs 04/13/25 furosemide 40 mg tablet 40 mg PO BIDLX #60 tabs 04/13/25 hydralazine 50 mg tablet 100 mg (2 x 50 mg) PO TID #180 tabs 04/13/25 metoprolol succinate 50 mg tablet,extended release 24 hr 150 mg (3 x 50 mg) PO BID #180 tabs 04/13/25 potassium chloride 10 mEq tablet,extended release (Klor-Con) 20 meq (2 x 10 mEq) PO DAILY #60 tabs 04/13/25 Hospital Course Summary of Care Provided Hospital Course: Elisabeth Mario is a 75 y/o female who underwent L CEA on . Preoperatively, she was noted to be quite hypertensive and this persisted through her initial postoperative course as well. Postoperatively, she was routinely admitted to the ICU for ongoing hemodynamic and neurologic monitoring. She was initiated on a nitro drip initially postoperatively; she then developed some R lower facial droop, R facial paresthesias, and R sided headache. Repeat Brain CT and Head/Neck CTA were unremarkable. These symptoms were attributed to reperfusion syndrome and they resolved after elevating HOB and improving BP control. POD#1 AM she had been weaned from nitro, ABIODUN drain was removed without issue. POD#1 PM she developed Afib with RVR; initial cardizem IV did not convert the rhythm, IV metoprolol converted for a bit but then she reverted into Afib again then requiring IV amiodarone and increased PO metoprolol dose after which she converted back to sinus rhythm. On POD#2 she was taken off of clonidine per hospitalist; suffered some rebound hypertension with severe headache, nausea, and vomiting so another repeat brain CT was obtained which was negative for bleed or other complications at which point nipride drip had to be started. Then oral metoprolol, hydralazine, and amlodipine were titrated to max doses and ultimately clonidine restarted at twice daily dosing to control her HTN and she was able to come off of nipride drip POD#2 evening. On POD#3 her HTN had been well controlled on oral regimen, she had no headache, no further recurrent neurologic symptoms. She had minimal pain at the incision site, was eating, voiding, and ambulating to her baseline. She was discharged to home in stable condition on 04/13/2025. Physical Exam Const alert, oriented x3 and no apparent distress General Appearance: cooperative and comfortable HEENT normocephalic, head/scalp atraumatic, hearing grossly normal bilaterally, external ears normal and external nose normal Eyes EOMs intact bilaterally General Eye: normal appearance of both eyes Neck Neck Narrative: L CEA incision site satisfactory in appearance, skin glue intact, no increased swelling. General: trachea midline Resp normal respiratory effort, normal air movement, no retractions and no use of accessory muscles Effort and Inspection: able to speak in complete sentences; Negative for labored, grunting or stridor Cardio regular rate and regular rhythm Extremity normal to inspection, full ROM and no clubbing, cyanosis or edema General Extremity: normal exam except as noted Skin no rashes or lesions noted Trauma: no lacerations or abrasions Neuro oriented x3, CN's II-XII intact bilaterally, moves all extremities, no focal motor deficits and no sensory deficits noted Speech: speech normal Psych mental status grossly normal, thought process normal, cooperative, affect normal, speech normal and activity/motor behavior normal Appearance: grossly normal Attitude: calm and engaged Activity / Motor Behavior: appropriate eye contact Speech: normal speech Weight / BMI Weight Weight: 186 lb 4.65 oz Body Mass Index (BMI) 33.0 ABG / Lab / Microbiology Data 04/10/25 04:58 04/10/25 04:58 D/C Instructions Discharge Diet: No restrictions Weight Bearing Status: Full weight bearing DC O2, CPAP, BIPAP Needs Home O2 Discharge instructions: No Meaningful Use Info Meaningful Use Meaningful Use Diagnoses (Choose all that apply): None applicable Ischemic Stroke Statin Dosing Therapy Reference: STATIN DOSE THERAPY REFERENCE: * Patients > 75 years receive moderate or high dose statin therapy. * Patients 75 years or YOUNGER should receive HIGH intensity statin dose unless contraindicated. You will be required to document reason for non-treatment if statin daily dose does not meet guidelines. HIGH DOSE STATIN THERAPY DAILY Atorvastatin > than or = to 40 mg Rosuvastatin > than or = to 20 mg Amlodipine + Atorvastatin > than or = to 2.5/40 mg Ezetimibe + Simvastatin 10/80 mg Simvastatin 80mg Discharge Plan Admission Admit Date/Time: 04/09/25 10:34 Primary Reason for Your Visit: Left carotid endarterectomy Attending Provider: Papo Sumner Primary Care Provider: Amanda Bahena Consulting Providers: Amos Fontaine; Matteo Griggs; Destiny Banerjee; Markus Boles; Markus Serra; Papo Oconnor; Kathrine Triplett; Jose A Murry; Maame Reese; Wiley Guerrero; Steph Travis; Albaro Lee; Johnie Ratliff; Michele Joyce; Waleska Wallace; Italo Petty; Maximo Au Instructions Additional Instructions / Restrictions: INCISION CARE: You have a small bandage on your neck over the site from which the surgical drain was removed. You may remove this bandage tonight after you shower. As long as there is no residual drainage, you may leave this open to air. If you do notice some continued drainage, you may re-cover with a Band-Aid. Your neck incision site is covered with skin glue which will continue to protect it. The skin glue will peel/flake off on its own over the next few weeks. Please do not pick at it. You may shower tonight. It is okay for soap and water to rinse over the incision site, pat to dry. Do not submerge the incision site in water such as to take a bath or go swimming etc. for 3 weeks. ACTIVITY INSTRUCTIONS Do not lift greater than 20 pounds for 3 weeks. Otherwise, please continue with activity as tolerated. Do not drive until you can turn your head well enough to safely check your blind spots. FOLLOW-UP INSTRUCTIONS You are scheduled for follow-up in the office on 04/24/25. If you need to change this appointment or have any other questions/concerns, please call the office at [phone]. Discharge Orders/Prescriptions Prescriptions: New furosemide 40 mg Tablet 40 mg PO BIDLX Qty: 60 0RF clonidine HCl 0.1 mg Tablet 0.1 mg PO BID Qty: 60 0RF metoprolol succinate 50 mg Tablet Extended Release 24 Hr 150 mg PO BID Qty: 180 0RF hydralazine 50 mg Tablet 100 mg PO TID Qty: 180 0RF potassium chloride [Klor-Con 10] 10 mEq tablet extended release 20 meq PO DAILY Qty: 60 0RF amlodipine 10 mg Tablet 10 mg PO DAILY Qty: 30 0RF Continued cetirizine [Zyrtec] 10 mg tablet 10 mg PO DAILY PRN (Reason: allergy symptoms) albuterol sulfate [Ventolin HFA] 90 mcg/actuation HFA aerosol inhaler 2 puff inhalation Q4H PRN (Reason: shortness of breath or wheezing) Qty: 8.5 6RF levothyroxine [Synthroid] 150 mcg tablet 150 mcg PO QDAY fluticasone propion-salmeterol [Advair HFA] 230-21 mcg/actuation HFA aerosol inhaler 2 inh inhalation BID Qty: 1 11RF Patient Comments: WILL START TAKING AFTER DONE WITH SYMBICORT. HAD TO SWITCH INHALERS D/T INSURANCE clopidogrel [Plavix] 75 mg tablet 75 mg PO DAILY Qty: 30 1RF aspirin [Adult Aspirin Regimen] 81 mg tablet,delayed release (DR/EC) 81 mg PO DAILY Qty: 360 0RF ipratropium-albuterol 3 ML solution for nebulization 3 ml INHALATION Q4H PRN PRN (Reason: Sob &/Or Wheezing) clonidine HCl 0.1 mg tablet 0.1 mg PO BID Qty: 60 0RF budesonide-formoterol 160-4.5 mcg/actuation HFA aerosol inhaler 2 puff inhalation BID Patient Comments: LAST DJOSE WILL BE 03/30/25 D/T TO INSURANCE CHANGING. WILL START ADVAIR THEN montelukast 10 mg tablet 10 mg PO QPM Discontinued naproxen 500 mg tablet 500 mg PO BID PRN (Reason: pain) metoprolol succinate 50 mg tablet extended release 24 hr 25 mg PO BID hydrochlorothiazide 25 MG tablet 25 mg PO DAILY Patient Comments: bp Other Ambulatory Orders: 12 Lead EKG (Routine) Timeframe: [id number] Location: None Selected Ordered By: Dr. Matt Ibarra Referrals / Follow Up: Papo Sumner MD [Med Staff - Active Staff] - See Referral Note (As scheduled) Amanda Bahena PA-C [Primary Care Provider] - In 1 Week (You will need to have a BMP (lab work) done to check your potassium) Disposition Disposition (needs filled in before D/C Order can be placed): Home, Self Care Charges/Coding Procedures Integumentary [id number]: [id number] Global Visit
== END 2025-04-13 11:30 | disposition home or self-care (01) | DRG 38 ==
PROVIDERS: Anesthesiology; Hospitalist; Internal Medicine; Admitting Provider Surgery Trauma Surgery; PCP Family Medicine; Referring Provider Surgery Trauma Surgery; Visit Provider Surgery Trauma Surgery
PROC: 03CN0ZZ Extirpation of Matter from Left External Carotid Artery, Open Approach (ICD-10-PCS; CPT 35301; principal; 2025-04-09 07:10)
DX: I65.23 Occlusion and stenosis of bilateral carotid arteries (principal); I97.191 Other postprocedural cardiac functional disturbances following other surgery; I16.0 Hypertensive urgency; I27.20 Pulmonary hypertension, unspecified; J44.9 Chronic obstructive pulmonary disease, unspecified; E03.9 Hypothyroidism, unspecified; Z68.33 Body mass index [BMI] 33.0-33.9, adult; I48.91 Unspecified atrial fibrillation; I10 Essential (primary) hypertension; E78.2 Mixed hyperlipidemia; Z79.51 Long term (current) use of inhaled steroids; Z79.82 Long term (current) use of aspirin; Z79.1 Long term (current) use of non-steroidal anti-inflammatories (NSAID); Z87.891 Personal history of nicotine dependence; Z82.49 Family history of ischemic heart disease and other diseases of the circulatory system; Z79.2 Long term (current) use of antibiotics; Z79.891 Long term (current) use of opiate analgesic; Z79.02 Long term (current) use of antithrombotics/antiplatelets; R09.02 Hypoxemia; Z82.5 Family history of asthma and other chronic lower respiratory diseases; Z79.890 Hormone replacement therapy; E66.811 Obesity, class 1
CPT/HCPCS: 36415; 70450; 70498; 80048; 84436; 84443; 84481; 85025; 85347; 88304; 88311; 93005; 93306; 94640; 94668; 94762; 97802; 99252; A4648; Q9957; Q9967; A4216; C8929; G0463; J2405

== ENCOUNTER 2025-04-29 12:01 | Emergency (ER) | payer MEDICARE, OTHER, SELFPAY ==
[2025-04-29 12:02] VITALS: BP 175/56; PULSE 62; RESP 18; TEMP 36.8; O2SAT 98
--- NOTE | 2025-04-29 12:21 | EDS_ITS ---
HPI <KANNAN Daley - Last Filed: 04/29/25 14:28> History of Present Illness Chief Complaint: Fatigue Narrative Narrative: 75-year-old female with past medical history of hypertension, Graves' disease status postradiation. On thyroid replacement, asthma, kidney stones presents with fatigue. She had a left carotid endarterectomy on April [address] Sumner and is felt very fatigued since then. Over the last few days she has had intermittent palpitations but no chest pain or shortness of breath. Today she feels that the fatigue is worse prompting her to come in. She has no fever or chills. No cough. No nausea, vomiting, abdominal pain, diarrhea, melena, hematochezia. No urinary symptoms. She followed up with Dr. Sumner last week and the incision is healing well. She also states she intermittently gets palpitations which she attributes to her thyroid. In 2022 she had an abnormal stress test but then had a normal heart catheterization. [facility], LATER [facility] <KANNAN Daley - Last Filed: 04/29/25 14:28> [facility], [facility] Medical History (Updated 04/29/25 @ 13:16 by KANNAN Daley) Carotid stenosis, bilateral Wears glasses Post-menopausal Anxiety Thyroid disease Arthritis History of renal disease High cholesterol Easy bruising Gastric reflux History of hiatal hernia Graves disease Former smoker Cardiology follow-up encounter History of echocardiogram History of stress test Hiatal hernia Pneumonia COPD (chronic obstructive pulmonary disease) Bronchitis Chest pain, unspecified Asthma HTN (hypertension) Cough Shortness of breath Home Medications ?Medication ?Instructions ?Recorded ?Last Taken ?Type albuterol sulfate 90 mcg/actuation 2 puff inhalation Q 4H PRN 08/24/23 Unknown Rx aerosol inhaler (Ventolin HFA) shortness of breath or wheezing #8.5 grams cetirizine 10 mg tablet (Zyrtec) 10 mg PO DAILY PRN al lergy symptoms 08/24/23 04/08/25 07:00 History levothyroxine 150 mcg tablet 150 mcg PO QDAY THYROID 0 02/14/24 04/09/25 04:30 History (Synthroid) fluticasone propionate 230 2 inh inhalation BID ASTHMA #1 ea 02/13/25 04/09/25 04:30 Rx mcg-salmeterol 21 mcg/actuation HFA inhaler (Advair HFA) aspirin 81 mg tablet,delayed 81 mg PO DAILY SUPPLEMENT #360 tabs 03/01/25 04/09/25 04:30 Rx release (Adult Aspirin Regimen) clopidogrel 75 mg tablet (Plavix) 75 mg PO DAILY BLOOD THINNER #30 03/01/25 04/09/25 04:30 Rx tabs budesonide-formoterol HFA 160 2 puff inhalation BID THMA 03/20/25 04/09/25 04:30 History mcg-4.5 mcg/actuation aerosol inhaler montelukast 10 mg tablet 10 mg PO QPM ASTHMA 04/09/25 04/08/25 17:00 History amlodipine 10 mg tablet 10 mg PO DAILY #30 tabs 04/01 01/23 Unknown Rx clonidine HCl 0.1 mg tablet 0.1 mg PO BID #60 tabs Unknown Rx furosemide 40 mg tablet 40 mg PO BIDLX #60 tabs 04/01 01/23 Unknown Rx hydralazine 50 mg tablet 100 mg (2 x 50 mg) PO TID #1 80 tabs 04/13/25 Unknown Rx metoprolol succinate 50 mg 150 mg (3 x 50 mg) PO BID # 180 tabs 04/13/25 Unknown Rx tablet,extended release 24 hr potassium chloride 10 mEq 20 meq (2 x 10 mEq) PO DAILY #60 04/13/25 Unknown Rx tablet,extended release (Klor-Con) tabs Allergy/AdvReac Type Severity Reaction Status Date / Time shellfish derived Allergy Anaphylaxis Verified 04/29/25 12:04 Iodinated Contrast Media AdvReac Intermediate Rash Verified 04/29/25 12:04 acetaminophen (From [facility]man) AdvReac Constipatio Verified 04/29/25 12:04 n hydrocodone (From [facility]man) AdvReac Constipatio Verified 04/29/25 12:04 n levofloxacin (From Levaquin) AdvReac GI upset Verified 04/29/25 12:04 losartan AdvReac Abd Verified 04/29/25 12:04 cramps/diarrhea prednisone AdvReac Other Verified 04/29/25 12:04 Family History Father Heart disease Asthma Mother CAD (coronary artery disease) Sister PAD (peripheral artery disease) Cancer Lung Diabetes Grandfather Diabetes Leukemia Surgical History (Updated 04/29/25 @ 14:28 by KANNAN Daley) History of bilateral cataract extraction History of cardiac catheterization History of urethral stent Eyelid retraction unspecified eye, unspecified lid History of D&C Social History household members: spouse housing: house pets and animals: Yes pets and animals: dog(s) Smoking Status: Former smoker Tobacco: How many years used: 30 how long ago did patient quit smokin, 1ppd second hand exposure: Yes alcohol intake: never substance use type: does not use ROS <KANNAN Daley - Last Filed: 04/29/25 14:28> ROS ED ROS Narrative Constitutional: Negative for fever, chills, malaise. CVS: Positive for palpitations negative for chest pain, syncope. Respiratory: Negative for shortness of breath, cough, orthopnea. GI: Negative for abdominal pain, nausea, vomiting, diarrhea, constipation, melena, hematochezia. : Negative for dysuria. Neuro: Negative for headache. EXAM <KANNAN Daley - Last Filed: 04/29/25 14:28> Physical Exam Narrative Exam Narrative: CONST: Patient sitting in no acute distress. EYES: Normal inspection. ENT: Normal inspection, moist mucous membranes. NECK: Normal inspection. Incision and scab on the left carotid is healing well, no erythema or drainage. RESP: No respiratory distress, CTAB. CVS: Regular rate and rhythm, no murmur, no gallop. ABD: Soft and nontender, no guarding or rebound, nondistended. SKIN: Color normal, no rash, warm, dry, intact. EXTREMITIES: Normal appearance, no pedal edema. NEURO: Alert and answering questions appropriately. PSYCH: Normal affect. Const Vital Signs: 04/29/25 12:02 04/29/25 13:02 04/29/25 13:58 Temperature 98.3 F 97.8 F Temperature Source Oral Pulse Rate 62 62 67 Respiratory Rate 18 20 H Blood Pressure 175/56 H 165/61 H 144/56 H Blood Pressure Mean 95 95 85 Pulse Ox 98 100 Oxygen Delivery Method Room Air <Dr. Christopher Bell MD - Last Filed: 04/29/25 13:01> Physical Exam Const Vital Signs: 04/29/25 12:02 04/29/25 13:02 04/29/25 13:58 Temperature 98.3 F 97.8 F Temperature Source Oral Pulse Rate 62 62 67 Respiratory Rate 18 20 H Blood Pressure 175/56 H 165/61 H 144/56 H Blood Pressure Mean 95 95 85 Pulse Ox 98 100 Oxygen Delivery Method Room Air [facility] <KANNAN Daley - Last Filed: 04/29/25 14:28> [facility] Narrative Medical decision making narrative: History gathered from: Patient and spouse 75-year-old female presents with ongoing fatigue since she had a left carotid endarterectomy on 04/09. The fatigue seems worse today. She is also had intermittent palpitations over the last few days but denies chest pain or shortness of breath. She appears well and nontoxic. She is hypertensive at 175/56 with otherwise normal vital signs. At the bedside telemetry shows normal sinus rhythm at 67 bpm. Left neck incision is healing well without signs of i nfection. Heart sounds regular with no murmurs. Lungs clear. Abdomen soft and nontender. She is neurologically intact. Labs show WBC of 13.1. Sodium and potassium are normal. BUN 24, creatinine 0.98. Glucose 113. TSH WNL. Troponin is 17 and EKG NSR without ischemic changes. She has no chest pain or shortness of breath so I do not think she needs serial cardiac enzymes as I do not suspect ACS. CXR shows no acute process. Urinalysis is negative. Overall her workup here is unremarkable. She may be experiencing normal postoperative fatigue as she states it worsened after she went back to work where she is on her feet all day. I recommended follow-up with her primary care doctor and discussed she should return if symptoms worsen. She was discharged in stable condition. I have personally performed a face to face assessment of the patient and have reviewed the YING Note. I performed a substantive portion of the visit including all aspects of the following. My rueda findings include: History is 75-year-old female about 3 weeks ago had left carotid endarterectomy surgery done here by Dr. Papo Meyer. Patient states she has felt fatigue since the surgery. Denies any headache, chest pain, shortness of breath or abdominal pain. Denies any nausea, vomiting or diarrhea. No melena. No fever. No dysuria. Exam is [well-appearing 75-year-old female. Vital signs stable afebrile. Pulse ox 98% on room air no signs hypoxia. H EENT exam pupils round react to light. Moist extremities. Neck well-healing left carotid endarterectomy surgery. Incision dry and clean. No lymphadenopathy. Lungs clear to auscultation bilaterally. Heart regular rhythm no murmur. Chest wall and ribs nontender. Abdomen soft nontender. Living all 4 extremities. 5-5 oxidized finish plater strength. Dorsi plantarflexion intact. No motor deficits in either upper or lower extremities. Neurologically she is awake and alert. Answering questions following commands. NIH 0. Very benign exam. Back nontender.] Medical Decision Making [75-year-old female status post left carotid endarterectomy 3 weeks ago complaining of fatigue.] Other additions or changes: [None] Lab Data Labs: Laboratory Results - last 24 hr 04/29/25 04/29/25 12:12 12:46 WBC 13.1 H RBC 4.22 Hgb 13.1 Hct 39.2 MCV 92.9 MCH 31.0 MCHC 33.4 RDW Std Deviation 51.8 H RDW Coeff of Jennifer 15.2 H Plt Count 471 H MPV 10.4 Immature Gran % (Auto) 0.500 Neut % (Auto) 79.3 H Lymph % (Auto) 11.0 L Sunflower % (Auto) 6.4 Eos % (Auto) 2.1 Baso % (Auto) 0.7 Absolute Neuts (auto) 10.4 H Absolute Lymphs (auto) 1.44 Nucleated RBC % 0 Sodium 138 Potassium 4.1 Chloride 102 Carbon Dioxide 20.6 L Anion Gap 15 BUN 24 H Creatinine 0.98 Est GFR (MDRD) Non-Af 61 BUN/Creatinine Ratio 24.9 H Glucose 113 H Calcium 10.0 Troponin T High Sens 17 H TSH 1.160 Urine Color Straw Urine Clarity Clear Urine pH 7.0 Ur Specific [place] 1.010 Urine Protein 15 H Urine Glucose (UA) Normal Urine Ketones Negative Urine Occult Blood Negative Urine Nitrite Negative Urine Bilirubin Negative Urine Urobilinogen Normal Ur Leukocyte Esterase Negative Urine RBC 0 SEEN Urine WBC 0-5 SEEN Ur Squamous Epith Cells 0-5 SEEN Urine Bacteria 0 SEEN Urine Mucus 0 SEEN Radiography Diagnostic Testing: Clinical Impression(s) from Imaging Studies Chest X-Ray 04/29/25 12:23 IMPRESSION: COPD. NO ACUTE FINDINGS. Reading Location: [id number] <Dr. Christopher Bell MD - Last Filed: 04/29/25 13:01> [facility] Narrative Medical decision making narrative: I have personally performed a face to face assessment of the patient and have reviewed the YING Note. I performed a substantive portion of the visit including all aspects of the following. My rueda findings include: History is 75-year-old female about 3 weeks ago had left carotid endarterectomy surgery done here by Dr. Papo Meyer. Patient states she has felt fatigue since the surgery. Denies any headache, chest pain, shortness of breath or abdominal pain. Denies any nausea, vomiting or diarrhea. No melena. No fever. No dysuria. Exam is [well-appearing 75-year-old female. Vital signs stable afebrile. Pulse ox 98% on room air no signs hypoxia. H EENT exam pupils round react to light. Moist extremities. Neck well-healing left carotid endarterectomy surgery. Incision dry and clean. No lymphadenopathy. Lungs clear to auscultation bilaterally. Heart regular rhythm no murmur. Chest wall and ribs nontender. Abdomen soft nontender. Living all 4 extremities. 5-5 oxidized finish plater strength. Dorsi plantarflexion intact. No motor deficits in either upper or lower extremities. Neurologically she is awake and alert. Answering questions following commands. NIH 0. Very benign exam. Back nontender.] Medical Decision Making [75-year-old female status post left carotid endarterectomy 3 weeks ago complaining of fatigue.] Other additions or changes: [None] History & Record Review Discussion w/independent historian: Patient and Family Additional record(s) reviewed:: Prior inpatient record, Prior outpatient record, Prior ED visit and Prior labs Lab Data Attestation: I reviewed the patient's lab results. Lab results narrative: CBC shows a white count 13.1. H&H of 13 and 39. Platelets 471. Chest x-ray negative. EKG normal. Labs: Laboratory Results - last 24 hr 04/29/25 04/29/25 12:12 12:46 WBC 13.1 H RBC 4.22 Hgb 13.1 Hct 39.2 MCV 92.9 MCH 31.0 MCHC 33.4 RDW Std Deviation 51.8 H RDW Coeff of Jennifer 15.2 H Plt Count 471 H MPV 10.4 Immature Gran % (Auto) 0.500 Neut % (Auto) 79.3 H Lymph % (Auto) 11.0 L Sunflower % (Auto) 6.4 Eos % (Auto) 2.1 Baso % (Auto) 0.7 Absolute Neuts (auto) 10.4 H Absolute Lymphs (auto) 1.44 Nucleated RBC % 0 Sodium 138 Potassium 4.1 Chloride 102 Carbon Dioxide 20.6 L Anion Gap 15 BUN 24 H Creatinine 0.98 Est GFR (MDRD) Non-Af 61 BUN/Creatinine Ratio 24.9 H Glucose 113 H Calcium 10.0 Troponin T High Sens 17 H TSH 1.160 Urine Color Straw Urine Clarity Clear Urine pH 7.0 Ur Specific [place] 1.010 Urine Protein 15 H Urine Glucose (UA) Normal Urine Ketones Negative Urine Occult Blood Negative Urine Nitrite Negative Urine Bilirubin Negative Urine Urobilinogen Normal Ur Leukocyte Esterase Negative Urine RBC 0 SEEN Urine WBC 0-5 SEEN Ur Squamous Epith Cells 0-5 SEEN Urine Bacteria 0 SEEN Urine Mucus 0 SEEN Radiography Chest X-Ray - ED: 2 View, Read by ED Physician, Read by Radiologist, Normal, Heart, Lungs, Mediastinum, Bony Structures, No Acute Disease and Chronic Changes Diagnostic Testing: Clinical Impression(s) from Imaging Studies Chest X-Ray 04/29/25 12:23 IMPRESSION: COPD. NO ACUTE FINDINGS. Reading Location: [facility] Chest x-ray, 2 views, AP and lateral, interpreted [place] over the radiologist. Normal cardiac silhouette. Normal lung pedro. Chronic changes consistent with COPD. Rhythm Strip Rhythm Strip: Sinus Rhythm Rate: 62 Ectopy: None EKG Initial EKG: Attestation: I personally reviewed and interpreted this EKG as follows: Interpretation: Sinus Rhythm and No Acute Injury Pattern Comments: Normal sinus rhythm rate of 62 no acute signs of AK or ischemia. No dysrhythmia. Discharge Plan Triage Chief Complaint: Fatigue ED Midlevel Provider: Angela Jimenez ED Provider: Christopher Bell Dx/Rx/DC Orders Clinical Impression: Fatigue, History of carotid endarterectomy Instructions: ED Weakness Uncertain Cause Prescriptions: No Action cetirizine [Zyrtec] 10 mg tablet 10 mg PO DAILY PRN (Reason: allergy symptoms) albuterol sulfate [Ventolin HFA] 90 mcg/actuation HFA aerosol inhaler 2 puff inhalation Q4H PRN (Reason: shortness of breath or wheezing) Qty: 8.5 6RF levothyroxine [Synthroid] 150 mcg tablet 150 mcg PO QDAY fluticasone propion-salmeterol [Advair HFA] 230-21 mcg/actuation HFA aerosol inhaler 2 inh inhalation BID Qty: 1 11RF Patient Comments: WILL START TAKING AFTER DONE WITH SYMB[facility]. HAD TO SWITCH INHALERS D/T INSURANCE clopidogrel [Plavix] 75 mg tablet 75 mg PO DAILY Qty: 30 1RF aspirin [Adult Aspirin Regimen] 81 mg tablet,delayed release (DR/EC) 81 mg PO DAILY Qty: 360 0RF budesonide-formoterol 160-4.5 mcg/actuation HFA aerosol inhaler 2 puff inhalation BID Patient Comments: LAST DJOSE WILL BE 03/30/25 D/T TO INSURANCE CHANGING. WILL START ADVAIR THEN montelukast 10 mg tablet 10 mg PO QPM furosemide 40 mg Tablet 40 mg PO BIDLX Qty: 60 0RF clonidine HCl 0.1 mg Tablet 0.1 mg PO BID Qty: 60 0RF metoprolol succinate 50 mg Tablet Extended Release 24 Hr 150 mg PO BID Qty: 180 0RF hydralazine 50 mg Tablet 100 mg PO TID Qty: 180 0RF potassium chloride [Klor-Con 10] 10 mEq tablet extended release 20 meq PO DAILY Qty: 60 0RF amlodipine 10 mg Tablet 10 mg PO DAILY Qty: 30 0RF Primary Care Provider: Amanda Bahena Referrals: Amanda Bahena PA-C [Primary Care Provider] - Activity Restrictions/Additional Instructions: Overall your tests look normal. The heart is under normal rhythm. Your thyroid level is normal. I am not sure what is causing her ongoing fatigue. It could still be recovering from surgery. I recommend following up with your primary care doctor or if you have new or worsening symptoms please be reevaluated. Print Language: Lao Disposition Disposition: Home, Self Care Discharge Date/Time: 04/29/25 14:00
--- NOTE | 2025-04-29 12:22 | EKG12_ITS ---
Test Reason : WEAKNESS Blood Pressure : */* mmHG Vent. Rate : 62 BPM Atrial Rate : 62 BPM P-R Int : 184 ms QRS Dur : 102 ms QT Int : 432 ms P-R-T Axes : 55 37 55 degrees QTcB Int : 438 ms Normal sinus rhythm Normal ECG Confirmed by TRAM YAO, JAY JAY ([id number]), non linear editor YVROSE VARGAS ([id number]) on 05/01/2025 6:33:34 AM Referred By: Christopher Bell Confirmed By: JAY JAY UGALDE MD
--- NOTE | 2025-04-29 12:23 | RAD_ITS ---
PROCEDURE: CHEST PA AND LATERAL 04/29/2025 REASON FOR EXAM: WEAKNESS TECHNIQUE: CHEST PA AND LATERAL COMPARISON: Chest radiograph 03/13/2019. FINDINGS: Hardware: None. Heart: The heart size is normal. Mediastinum: The mediastinal contour is unremarkable. Lungs: Bibasilar atelectasis/scarring. Findings compatible with emphysema. No pleural effusion or pneumothorax. Bones: Degenerative changes are identified within the thoracic spine. RAD/Chest PA and Lateral IMPRESSION: COPD. NO ACUTE FINDINGS. Reading Location: [id number]
[2025-04-29 12:30] LABS: Absolute Lymphocyte Count 1.44 X10^3/uL (0.83-4.51); Absolute Neutrophil Count 10.4 X10^3/uL (2.0-7.7); Basophil# 0.09 X10^3/uL; Basophil% 0.7 % (0-1); Eosinophil# 0.27 X10^3/uL; Eosinophils% 2.1 % (0-5); Hematocrit 39.2 % (37-47); Hemoglobin 13.1 g/dL (12.0-15.0); Lymphocyte # 1.44 X10^3/ul (0.83-4.51); Mean Corp Hgb Conc 33.4 g/dL (32-36); Mean Corpuscular Volume 92.9 fL (81-99); Mean Platelet Vol. 10.4 fl (6.2-12.0); Monocyte# 0.84 X10^3/uL; Monocyte% 6.4 % (0-10); NRBC Flagged by Analyzer 0 % (0-5); Neutrophil # 10.38 X10^3/uL (2.7-7.7); Neutrophil % 79.3 % (47-70); Platelet Count 471 K/mm3 (150-450); RBC Distribution Width CV 15.2 % (11.6-14.6); RBC Distribution Width SD 51.8 fl (35.1-43.9); Red Blood Count 4.22 M/mm3 (4.2-5.4); White Blood Count 13.1 K/mm3 (4.4-11.0)
--- OUTSIDE RECORDS SUMMARY | 2025-04-29 12:39 | XMS RPT_ITS | CCD ---
Author Organization [facility] Care Team Providers Care Central Office Operator Name Role Phone CogFreda grey LPN N Unavailable Freda Stewart LPN N Unavailable SHRUTI ROTHMAN, AMANDA Primary Care Physician TYLER YAO, DR THOMAS Attending Unavailable IGOR MONTANO MD Referring Unavailabl e CANOVA, AMANDA Primary Care Unavailable Arnold LORNA, Amanda Primary Care Provider [phone] Amanda Bahena PA-C Referring Provider Pebbles BERMAN-CTatiana Attending Provider Dr. Des Avila MD Emergency Provider Dr. Des Avila MD Attending Provider Zeinab Keita Attending Provider Zeinab Keita Referring Provider [phone] Papo Sumner MD Attending Provider Dr. Pepe Sanchez MD Attending Provider Dr. Papo Sumner MD Referring Provider Dr. Papo Sumner MD Admit Provider Dr. Papo Sumner MD Other Provider Dr. Amos Fontaine DO Other Provider [phone] Anson YAO, Dr. Felipe Other Provider Unavailab Dr. Destiny Melo MD Other Provider Dr. Markus Boles DO Other Provider Unavail able Ponce YAO, Dr. Aparicio Other Provider Unavailable Elvin MELLO, Dr. Barros Other Provider Uziel YAO, Dr. Chisholm Other Provider Jeanmarie YAO, Dr. Naranjo Other Provider Hugh MELLO, Dr. Isabel Other Provider Yolanda MELLO, Dr. Jama Other Provider Angy YAO, Dr. Steph Chaudhary Other Provider Jesus YAO, Dr. Albaro Sawyer Other Provider Gaudencio YAO, Dr. Jett Other Provider Maria Del Carmen YAO, Dr. Bautista Other Provider Rodrigo YAO, Dr. Galeano Other Provider Jovanny YAO, Dr. Puckett Other Provider Angely BRUNNER, Maximo Other Provider Dr. Amos Fontaine DO Attending Provider Lion YAO, Dr. Gonzalez Attending Provider Dr. Wiley Guerrero DO Attending Provider HILLS, AMANDA Primary Care Unavailable CANOVA, AMANDA Consulting Unavailable CANOVA, AMANDA Attending Unavailable CANOVA, AMANDA Admitting Unavailable PROVIDER, UNKNOWN Consulting Unavailable CANOVA, AMANDA Consulting Unavailable CANOVA, AMANDA Attending Unavailable CANOVA, AMANDA Admitting Unavailable CANOVA, AMANDA Primary Care Unavailable PROVIDER, UNKNOWN Consulting Unavailable CANOVA, AMANDA Primary Care Unavailable HILLS, AMANDA Consulting Unavailable HILLS, AMANDA Attending Unavailable HILLS, AMANDA Admitting Unavailable PROVIDER, UNKNOWN Consulting Unavailable HILLS, AMANDA Consulting Unavailable HILLS, AMANDA Attending Unavailable HILLS, AMANDA Admitting Unavailable CANOVA, AMANDA Primary Care Unavailable PROVIDER, UNKNOWN Consulting Unavailable HILLS, AMANDA Primary Care Unavailable HILLS, AMANDA Attending Unavailable HILLS, AMANDA Admitting Unavailable HILLS, AMANDA PAC Consulting Unavailable PROVIDER, UNKNOWN Consulting Unavailable Arnold PA, Amanda Primary Care Unavailable Lisa Seymour Attending Unavailable [place] Admitting Unavailable Arnold PA, Amanda Primary Care Unavailable Mosteller, Amos Consulting Unavailable Wiley Guerrero Attending Unavailable [place], Papo Referring Unavailable Griggs, Achintya Consulting Unavailable Destiny Banerjee Consulting Unavailable Markus Boles Consulting Unavailable Markus Serra Consulting Unavailable Elvin Papo Consulting Unavailable Oleghe, Ifijen Consulting Unavailable Agyepong, Jose A Consulting Unavailable Hugh, Maame Consulting Unavailable Tereletsky, Wiley Consulting Unavailable Koram, Steph Neena Consulting Unavailable AracelisoniSeema drummonds F Consulting Unavailable Gaudencio, Johnie Consulting Unavailable Joyce, Michele Consulting Unavailable Wallace, Waleska Consulting Unavailable Jovanny, Italo Consulting Unavailable Angely PA, Maximo Consulting Unavailable [place], Papo Consulting Unavailable [facility] Primary Care Unavailable Carrillo, Zeinab Attending Unavailable [facility] Referring Unavailable Carrillo, Zeinab Attending Unavailable [facility] Referring Unavailable [facility] Primary Care Unavailable [place], Papo Admitting Unavailable [facility] Primary Care Unavailable [place], Papo Consulting Unavailable [place], Papo Referring Unavailable Taisha, Papo Attending Unavailable Amos Fontaine Attending Unavailable Minal, Amos Consulting Unavailable Carrillo, Zeinab Attending Unavailable Taisha, Papo Attending Unavailable [facility] Primary Care Unavailable [facility] Referring Unavailable Taisha, Papo Attending Unavailable [facility] Referring Unavailable Tatiana Rogel NP Attending Unavailable [facility] Primary Care Unavailable [place], Papo Admitting Unavailable [facility] Primary Care Unavailable Minal, Amos Consulting Unavailable Taisha, Papo Referring Unavailable Taisha, Papo Attending Unavailable Griggs, Achintya Consulting Unavailable Destiny Banerjee Consulting Unavailable Markus Boles Consulting Unavailable Markus Serra Consulting Unavailable Elvin, Papo Consulting Unavailable Olerogere, Ifijen Consulting Unavailable Agyeponken, Jose A Consulting Unavailable Hugh, Maame Consulting Unavailable Tereletsky, Wiley Consulting Unavailable Koram, Steph Neena Consulting Unavailable Albaro Lee F Consulting Unavailable Gaudencio, Johnie Consulting Unavailable Joyce, Michele Consulting Unavailable Wallace, Waleska Consulting Unavailable Jovanny, Italo Consulting Unavailable Angely PA, Maximo Consulting Unavailable [place], Papo Admitting Unavailable [facility] Primary Care Unavailable [place], Papo Attending Unavailable Carrillo, Zeinab Referring Unavailable Carrillo, Zeinab Attending [facility] Unavailable Des Avila Attending Unavailable Arnold Isabella BRUNNERAmanda Primary Care Unavailable Arnold KANNAN Amanda Primary Care Unavailable Pepe Sanchez Attending Unavailable Papo Sumner Referring Unavailable Allergies Allergy Classification Reported Allergen(s) Allergy Type Date of Onset Reaction(s) Facility (5 sources) Acetaminophen Drug Allergy 07-22-20 Drug-induced constipation with proper administration [facility] (5 sources) HYDROcodone Drug Allergy 07-22-20 Drug-induced constipation with proper administration [facility] (5 sources) levoFLOXacin Drug Allergy 07-22-20 GI upset [facility] (5 sources) predniSONE Drug Allergy 07-22-20 Other [facility] Comment on above: BLURRED VISION, CHES T PAIN/PRESSURE, TACHYCARDIA (4 sources) Losartan Drug Allergy 02-28-20 Abd cramps/diarrhea [facility] (3 sources) Triiodobenzoic Acids Propensity to adverse reactions 03-05-20 Rash [facility] (3 sources) Shellfish; Translations: [shellfish derived] Allergy to substance 04-09-20 Anaphylaxis [facility] (1 source) HYDROcodone Drug Allergy [facility] (1 source) levoFLOXacin Drug Allergy [facility] (1 source) Acetaminophen Drug Allergy 04-24-20 [facility] (1 source) HYDROcodone Drug Allergy 04-24-20 [facility] (1 source) levoFLOXacin Drug Allergy 04-24-20 [facility] (1 source) Losartan Drug Allergy 04-24-20 [facility] (1 source) predniSONE Drug Allergy 04-24-20 [facility] (1 source) Iodinated Contrast Media Drug allergy (disorder) 04-24-20 [facility] Medications Current Medications Medication Drug Class(es) Dates Sig (Normalized) Sig (Original) amLODIPine 10 mg oral tablet (11 sources) Dihydropyridine Calcium Channel Sheila Start: 04-13-2025 take 1 tablet by mouth once daily Amlodipine 10 mg Tablet Active 10 mg PO DAILY April 13, 2025 12:00am Start: 08-24-2023 End: 03-20-2025 Amlodipine 5 mg tablet Disco ntinued mg PO August 24, 2023 12:00am March 20, 2025 2:58pm Start: 03-21-2019 End: 07-31-2019 take 1 tablet by mouth once daily Amlodipine 5 MG tablet Discontinued 5 mg PO DAILY March 21, 2019 12:00am July 31, 2019 1:18pm aspirin 81 mg delayed release oral tablet (4 sources) Platelet Aggregation Inhibitor, Nonsteroidal Anti-inflammatory Drug [...] qDay, # 30 tab(s), 5 Refill(s), Pharmacy: [id number], 162.6, cm, 05/06/23 6:46:00 EDT, Height Start Date: 05/06/23 Status: Ordered Budesonide-Formoterol (20 sources) Corticosteroid, beta2-Adrenergic Agonist Start: 03-20-2025 Budesonide-Formotero l 160-4.5 mcg/actuation HFA aerosol inhaler Active 2 NMA INHALATION TWICE A DAY March 20, 2025 12:00am Start: 12-06-2024 End: 02-13-2025 Budesonide-Formoterol (Breyn a) 160-4.5 mcg/actuation HFA aerosol [...] 21, 2019 12:00am April 05, 2019 8:16am cetirizine hydrochloride 10 mg oral tablet (5 sources) Histamine-1 Receptor Antagonist Start: 08-24-2023 take 1 tablet by mouth once daily as needed Cetirizine (Zyrtec) 10 mg tablet Active 10 mg PO DAILY as needed for allergy symptoms August 24, 2023 12:00am Start: 05-06-2023 take 1 dose by mouth once michelle y cetirizine Dose : 10 mg =, Oral, qDay, 0 Refill(s) Start Date: 05/06/23 Status: Ordered cloNIDine hydrochloride 0.1 mg oral tablet (6 sources) Central alpha-2 Adrenergic Agonist Start: 02-27-2025 End: 04-24-2025 take 1 tablet by mouth twice daily Clonidine Hcl 0.1 mg Tablet Active 0.1 mg PO TWICE A DAY 60 April 13, 2025 12:00am clopidogrel 75 mg oral tablet (3 sources) [id number] Platelet Inhibitor Start: 03-01-2025 take 1 tablet by mouth once daily Clopidogrel (Plavix) 75 mg tablet Active 75 mg PO DAILY March 01, 2025 12:00am Fluticasone Propion-Salmeterol (20 sources) Corticosteroid, beta2-Adrenergic Agonist Start: 02-13-2025 End: 03-20-2025 Fluticasone Propion-Salmeterol 250-50 mcg/dose blister with device Discontinued INHALATION TWICE A DAY February 13, 2025 12:00am March 20, 2025 2:56pm Start: 02-13-2025 Fluticasone Pr opion-Salmeterol (Advair Hfa) [...] 1 NMA INHALATION TWICE A DAY 60 May 01, 2024 12:49pm November 27, 2024 [...] 05, 2019 12:00am June 22, 2019 10:42am furosemide 40 mg oral tablet (2 sources) Loop Diuretic Start: 04-13-2025 take 1 tablet by mouth twice daily Furosemide 40 mg Tablet Active 40 mg PO TWICE DAILY 60 April 13, 2025 12:00am hydrALAZINE hydrochloride 50 mg oral tablet (2 sources) Arteriolar Vasodilator Start: 04-13-2025 take 2 tablets by mouth three times daily Hydralazine 50 mg Tablet Active 100 mg PO THREE TIMES A DAY 180 April 13, 2025 12:00am 24 hr metoprolol succinate 50 mg extended release oral tablet (10 sources) beta-Adrenergic Sheila Start: 04-13-2025 Metoprolol Succinate 50 mg Tablet Extended Release 24 Hr Active 150 mg PO TWICE A DAY 180 April 13, 2025 12:00am Start: 03-01-2025 End: 04-13-2025 take 2 tablets by mouth twice daily Metoprolol Succinate 50 mg tablet extended release 24 hr Discontinued 25 mg PO TWICE A DAY March 01, 2025 10:19am April 13, 2025 10:03am Start: 02-13-2025 End: 03-01-2025 take 1 tablet [...] 0 Refill(s) Start Date: 05/06/23 Status: Ordered montelukast 10 mg oral tablet (20 sources) Leukotriene Receptor Antagonist Start: 04-09-2025 take 1 tablet by mouth once daily in the evening Montelukast 10 mg tablet Active 10 mg PO EVERY EVENING April 09, 2025 12:00am Start: 03-21-2019 End: 02-13-2025 take 1 tablet by mouth once daily Montelukast 10 mg tablet Discontinued 10 mg PO DAILY@1700 30 October 10, 2024 3:29pm February 13, 2025 2:18pm Multivitamin preparation (1 source) Start: 05-06-2023 Multivitamin O ral, Daily, Takes 2 gummies, 0 Refill(s) Start Date: 05/06/23 Status: Ordered potassium chloride 10 meq extended release oral tablet (2 sources) Start: 04-13-2025 Potassium Chlo ride (Klor-Con 10) 10 mEq tablet extended release Active 20 meq PO DAILY 60 April 13, 2025 12:00am levothyroxine sodium 0.15 mg oral tablet (16 sources) l-Thyroxi ne Start: 02-14-2024 take 1 tablet by mouth [...] tablet by mouth once daily LEVOTHYROXINE SODIUM [id number] Amanda Bahena PA-C Start: 04-08-2016 take 1 tablet by arlen th once daily SYNTHROID 125 MCG TABS 1 tablet by mouth once daily LEVOTHYROXINE SODIUM [id number] Amanda Bahena PA-C Start: 02-11-2010 End: 04-08-2016 take 1 tablet by mouth once daily LEVOXYL 112 MCG TABS 1 tab by mouth michelle y LEVOTHYROXINE SODIUM [id number] Amanda Bahena PA-C Start: 02-11-2010 take 1 tablet by arlen th once daily LEVOXYL 112 MCG TABS 1 tab by mouth michelle y LEVOTHYROXINE SODIUM [id number] Sandie BRUNNER Start: 02-11-2010 End: 04-08-2016 take 1 tablet by mouth once daily LEVOXYL 112 MCG TABS 1 tab by mouth michelle y LEVOTHYROXINE SODIUM [id number] Amanda Bahena PA-C Start: 02-11-2010 take 1 tablet by arlen th once daily LEVOXYL 112 MCG TABS 1 tab by mouth michelle y LEVOTHYROXINE SODIUM [id number] Sandie BRUNNER vitamin B12 (1 source) Vitamin B12 Start: 05-06-2023 Vitamin B12 Or al, qDay, Takes 2 gummies, 0 Refill(s) Start Date: 05/06/23 Status: Ordered Completed/Discontinued Medications Medication Drug Class(es) Dates Sig (Normalized) Sig (Original) acetaminophen 325 mg / HYDROcodone bitartrate 5 mg oral tablet (10 sources) Opioid Agonist Start: 07-27-2020 End: 08-03-2020 Hydrocodone-Acetami nophen 1 EACH tablet Discontinued 1 NMA PO EVERY 4 HOURS NEEDED as needed for Pain Score 1-10/10 14 July 27, 2020 August 02, 2020 12:00am August 03, 2020 12:03am Start: 07-27-2020 End: 08-03-2020 Hydrocodone-Acetaminophen Di scontinued 1 EACH PO EVERY 4 HOURS NEEDED 14 July 27, 2020 August 03, 2020 12:03am Start: 07-25-2020 End: 07-28-2020 Hydrocodone-Acetaminophen 1 EACH tablet Discontinued 1 NMA PO EVERY 8 HOURS NEEDED as needed for Pain Score 6-10/10 12 July 25, 2020 July 27, 2020 12:00am July 28, 2020 12:02am Start: 07-25-2020 End: 07-28-2020 Hydrocodone-Acetaminophen Di scontinued 1 EACH PO EVERY 8 HOURS NEEDED 12 July 25, 2020 July 28, 2020 12:02am [id number] 200 actuat albuterol 0.09 mg/actuat metered dose inhaler (20 sources) beta2-Adrenergic Agonist Start: 07-03-2020 End: 08-24-2023 [...] every 4 hours as needed ALBUTEROL SULFATE [id number] Devi Anguiano PA-C Start: 03-03-2011 End: 03-08-2011 VENTOLIN HFA 108 (90 Base) M CG/ACT AERS 2 puffs every 4 hours as needed ALBUTEROL SULFATE [id number] Devi Anguiano PA-C albuterol 0.833 mg/ml / ipratropium bromide 0.167 mg/ml inhalation solution (5 sources) Anticholinergic, beta2-Adrenergic Agonist Start: 03-13-2019 End: 04-24-2025 take 1 mL by inhalation every four hours as needed for wheezing Ipratropium-Albuterol 3 ML solution for nebulization Discontinued 3 mL INHALATION EVERY 4 HOURS NEEDED as needed for Sob &/Or Wheezing March 13, 2019 12:00am April 24, 2025 1:28pm Start: 03-13-2019 take 1 mL by inhalat ion every four hours as needed Ipratropium-Albuterol Active 3 ML INHALATION EVERY 4 HOURS NEEDED March 13, 2019 12:00am amoxicillin 500 mg oral capsule (2 sources) Penicillin-class Antibacterial Start: 02-11-2010 End: 02-21-2010 take 1 capsule by mouth three times daily AMOXICILLIN 500 MG CAPS Take 1 capsule by mouth three times a day X 10 days AMOXICILLIN [id number] Sandie BRUNNER benzonatate 100 mg oral capsule (2 sources) Non-narcotic Antitussive Start: 07-27-2017 End: 08-06-2017 BENZONATATE 100 MG CAPS Take 1 tablet every 8 hours as necessary for cough BENZONATATE [id number] Steven BRUNNER cephalexin 500 mg oral capsule (5 sources) Cephalosporin Antibacterial Start: 07-27-2020 End: 01-21-2021 [...] and night X 7 days CIPROFLOXACIN HCL [id number] Devi Anguiano PA-C diphenhydrAMINE hydrochloride 25 mg oral strip (2 sources) Histamine-1 Receptor Antagonist Start: 04-08-2016 take 2 tablets by mouth twice daily BENADRYL 25 MG TABS 2 tablets by mouth twice daily DIPHENHYDRAMINE HCL [id number] Amanda Bahena PA-C FLUTICASONE PROPIONATE (2 sources) Corticosteroid Start: 02-11-2010 End: 02-21-2010 take 2 spray(s) nasal route once daily FLONASE 50 MCG/ACT SUSP 2 sprays each nostril once a day FLUTICASONE PROPIONATE [id number] Sandie BRUNNER Start: 02-11-2010 End: 02-21-2010 take 2 spray(s) nasal route once daily FLONASE 50 MCG/ACT SUSP 2 sprays each nostril once a day FLUTICASONE PROPIONATE [id number] Sandie BRUNNER hydroCHLOROthiazide 25 mg oral tablet (10 sources) Thiazide Diuretic Start: 08-02-2017 End: 04-13-2025 take 1 tablet by mouth once daily Hydrochlorothiazide 25 MG tablet Discontinued 25 mg PO DAILY August 02, 2017 12:00am April 13, 2025 10:02am Start: 02-11-2010 take 1 tablet by arlen once daily HYDROCHLOROTHIAZIDE 25 MG TABS One tablet by mouth daily HYDROCHLOROTHIAZIDE [id number] Amanda Bahena PA-C lisinopril 40 mg oral tablet (6 sources) Angiotensin Converting Enzyme Inhibitor Start: 04-08-2016 take 1 tablet by mouth once daily LISINOPRIL 40 MG TABS 1 tablet by mouth once daily LISINOPRIL [id number] Amanda Bahena PA-C Start: 02-11-2010 End: 04-08-2016 take 1 tablet by mouth twice daily LISINOPRIL 40 MG TABS One tablet by mouth twice a day LISINOPRIL [id number] Sandie E Galilea PA metoclopramide 10 mg oral tablet (5 sources) Dopamine-2 Receptor Antagonist Start: 08-03-2020 End: 08-24-2023 take 1 tablet by mouth every six hours as needed for nausea Metoclopramide Hcl 10 MG tablet Discontinued 10 mg PO EVERY 6 HOURS as needed for Nausea/Vomiting August 03, 2020 12:00am August 24, 2023 1:38pm naproxen 500 mg oral tablet (9 sources) Nonsteroidal Anti-inflammatory Drug Start: 07-25-2020 End: 04-13-2025 take 1 tablet by mouth twice daily as needed for pain Naproxen 500 mg tablet Discontinued 500 mg PO TWICE A DAY as needed for pain August 24, 2023 1:37pm April 13, 2025 10:03am ondansetron 4 mg disintegrating oral tablet (5 sources) Serotonin-3 Receptor Antagonist Start: 07-25-2020 End: 07-28-2020 take 1 tablet by mouth every eight hours as needed for nausea Ondansetron 4 MG tablet Discontinued 4 mg PO EVERY 8 HOURS NEEDED as needed for Nausea/Vomiting 08 03July 25, 2020 12:00am July 27, 2020 12:00am July 28, 2020 12:02am predniSONE 10 mg oral tablet (5 sources) Start: 03-13-2019 End: 03-21-2019 take 4 [...] TABS One tablet by mouth daily SIMVASTATIN [id number] Amanda Bahena PA-C TRIAMCINOLONE ACETONIDE (2 sources) Corticosteroid Start: 07-27-2017 NASACORT ALLERGY 24HR 55 MCG/ACT AERO TRIAMCINOLONE ACETONIDE [id number] Steven BRUNNER Start: 07-27-2017 NASACORT ALLER GY 24HR 55 MCG/ACT AERO TRIAMCINOLONE ACETONIDE [id number] Steven BRUNNER Problems Active Problems Problem Classification Problem Date Documented Date Episodic/Chronic Abdominal hernia (2 sources) Hiatal hernia; Translations: [Diaphragmatic hernia without obstruction or gangrene] 03-19-2025 Episodic Abdominal pain (5 sources) Flank pain; Translations: [Unspecified abdominal pain] 07-26-2020 Episodic Acute and unspecified renal failure (5 sources) Injury of kidney; Translations: [Acute kidney failure, unspecified] 07-26-2020 Episodic Asthma (5 sources) Asthma; Translations: [Unspecified asthma, uncomplicated] 03-29-2019 Chronic Calculus of urinary tract (10 sources) Kidney stone; Translations: [Calculus of kidney] 08-03-2020 Episodic Chronic obstructive pulmonary disease and bronchiectasis (19 sources) Asthma-chronic obstructive pulmonary disease overlap syndrome; Translations: [Chronic obstructive pulmonary disease, unspecified] 04-05-2019 Chronic Comment on above: FEV1 63% of predicte d quit smoking 2001 Chronic obstructive pulmonary disease and bronchiectasis (5 sources) Bronchitis; Translations: [Bronchitis, not specified as acute or chronic] 07-25-2020 Episodic Disorders of lipid metabolism (1 source) Hyperlipidemia, unspecified; Translations: [Hyperlipidemia, unspecified] Onset: 01-01-2025 Chronic Essential hypertension (14 sources) Hypertensive disorder; Translations: [Essential (primary) hypertension] Onset: 04-08-2016 04-08-2016 Chronic Hypertension with complications and secondary hypertension (4 sources) Hypertensive urgency ; Translations: [Hypertensive urgency] 02-27-2025 Chronic Nausea and vomiting (10 sources) Postoperative vomiting; Translations: [Vomiting, unspecified] 08-04-2020 Episodic Nonspecific chest pain (5 sources) Chest pain; Translations: [Chest pain, unspecified] 03-29-2019 Episodic Occlusion or stenosis of precerebral arteries (14 sources) Bilateral stenosis of carotid arteries; Translations: [Occlusion and stenosis of bilateral carotid arteries] Onset: 02-28-2025 03-05-2025 Chronic Comment on above: CTA images reviewed, right 81%, left 80%, mild calcifications, low bifurcation Other aftercare (4 sources) Other termite treater helper (current) drug therapy; Translations: [Other termite treater helper (current) drug therapy] Onset: 01-01-2025 Episodic Other circulatory disease (2 sources) Other specified symptoms and signs involving the circulatory and respiratory systems; Translations: [Other specified symptoms and signs involving the circulatory and respiratory systems] Onset: 02-28-2025 Episodic Other eye disorders (5 sources) Retraction of eyelid; Translations: [Eyelid retraction unspecified eye, unspecified lid] 07-25-2020 Episodic Other lower respiratory disease (7 sources) Cough; Translations: [Cough] Onset: 07-27-2017 07-27-2017 Episodic Other lower respiratory disease (5 sources) Dyspnea; Translations: [Shortness of breath] 03-29-2019 Episodic Other lower respiratory disease (1 source) Shortness of breath; Translations: [Shortness of breath] Onset: 02-26-2025 Episodic Other nutritional; endocrine; and metabolic disorders (8 sources) Obesity; Translations: [Obesity, unspecified] 02-13-2025 Chronic Pneumonia (except that caused by tuberculosis or sexually transmitted disease) (5 sources) Pneumonia; Translations: [Pneumonia, unspecified organism] 07-25-2020 Episodic Thyroid disorders (7 sources) Hyperthyroidism; Translations: [Hypothyroidism] Onset: 04-08-2016 Resolved: 04-08-2016 04-08-2016 Chronic Unclassified (2 sources) As scheduled Unclassified (2 sources) You will need to have a BMP (lab work) done to check your potassium Past or Other Problems Problem Classification Problem [...] Test Name Value Interpretation Reference Range Facility BMP with eGFRon 04-26-2025 AGE 75 years Normal [facility] Comment on above: Performed By: #### [id number] #### [facility],[address] [place] [address] Anion gap [Moles/Vol] 12 mmol/L Normal 10 - 20 [facility] Comment on above: Performed By: #### [id number] #### [facility],[address] [place] [address]60 BMP with eGFR Normal [facility] Comment on above: Result Comment: BASI C METABOLIC PANEL Performed By: #### [id number] #### [facility],[address] [place] [address]5813 Calcium [Mass/Vol] 9.4 mg/dL Normal 8.5 - 10.1 [facility] Comment on above: Performed By: #### [id number] #### [facility],[address] [place] [address]21 Chloride [Moles/Vol] 103 mmol/L Normal 98 - 107 [facility] Comment on above: Performed By: #### [id number] #### [facility],[address] [place] [address] 63234 CO2 [Moles/Vol] 29.4 mmol/L Normal 21.0 - 32.0 [facility] Comment on above: Performed By: #### 2 [id number] #### [facility],[address] [place] [address] 86110 Creatinine [Mass/Vol] 1.01 mg/dL Normal 0.55 - 1.02 [facility] Comment on above: Performed By: #### [id number] #### [facility],[address] [place] [address] 10588 eGFR 54 ML/MINUTE Low 60 - 999 [facility] Comment on above: Performed By: #### 2 [id number] #### [facility],[address] [place] [address] 14768 GFR/1.73 sq M.predicted among non-blacks MDRD (S/P/Bld) [Vol rate/Area] mL/min/{1.73_m2} Normal 60 - 999 [facility] Comment on above: Result Comment: ACCO RDING TO THE NATIONAL KIDNEY DISEASE EDUCATION PROGRAM(NKDE), A NORMAL eGFR IS A VALUE GREATER THAN OR EQUAL TO 60 ML/MIN/1.73 SQ METERS. CHRONIC KIDNEY DISEASE: <60mL/MIN/1.73 SQ METERS KIDNEY FAILURE: <15mL/MIN/1.73 SQ METERS THIS TEST SHOULD ONLY BE USED FOR PATIENTS 18 YEARS OF AGE AND OLDER. Performed By: #### 2 [id number] #### [facility],[address] [place] [address]0522 Glucose [Mass/Vol] 104 mg/dL Normal 74 - 106 [facility] Comment on above: Performed By: #### [id number] #### [facility],[address] [place] [address] Potassium [Moles/Vol] 3.9 mmol/L Normal 3.5 - 5.1 [facility] Comment on above: Performed By: #### 2 86560 #### [facility],[address] [place] [address] Sodium [Moles/Vol] 140 mmol/L Normal 136 - 145 [facility] Comment on above: Performed By: #### 2 [id number] #### [facility],[address] [place] [address]6435 Urea nitrogen [Mass/Vol] 32 mg/dL High 7 - 18 [facility] Comment on above: Performed By: #### 2 14526 #### [facility],[address] [place] [address]287 Surgery Visit Reporton 04-24 Surgery Visit Report [facility] [address] [place] [address]. [address] [place] [address] OFFICE VISIT Date of Service: 04/24/25 MR#: [id number] Acct: [id number] Name: ELISABETH WILDE Rep #: [id number] : 1950 Provider: KANNAN Bermudez Age/Sex: 75/F Location: [facility] Status: Signed Intake Vital Signs 03/01/25 11:31 04/10/25 09:45 04/24/25 13:26 Height 5 ft 4 in 5 ft 3 in Weight: 176 lb BP 158/65 H Blood Pressure Location Lt brachial Position Sitting Respiration 14 Pulse 62 Pulse Source Monitor Temp 98.2 F Temp Source Temporal Pulse Oximetry (%) 98 Oxygen Delivery Method room air Intake Visit Reasons: Post Endartectomy 2-3 WK FU Is patient in pain?: No Allergies shellfish derived Allergy (Verified 04/24/25 13:27) Anaphylaxis Iodinated Contrast Media Adverse Reaction (Intermediate, Verified 04/24/25 13:27) Rash acetaminophen (From [place]) Adverse Reaction (Verified 04/24/25 13:27) Constipation hydrocodone (From [place]) Adverse Reaction (Verified 04/24/25 13:27) Constipation levofloxacin (From [place]) Adverse Reaction (Verified 04/24/25 13:27) GI upset losartan Adverse Reaction (Verified 04/24/25 13:27) Abd cramps/diarrhea prednisone Adverse Reaction (Verified 04/24/25 13:27) Other Medications ???Medication ???Instructions ???Recorded ???Confirmed ???Type albuterol sulfate 90 mcg/actuation 2 puff inhalation Q4H PRN 04/24/25 Rx aerosol inhaler (Ventolin HFA) shortness of breath or wheezing #8.5 grams cetirizine 10 mg tablet (Zyrtec) 10 mg PO DAILY PRN allergy symptom s 08/24/23 04/24/25 History levothyroxine 150 mcg tablet 150 mcg PO QDAY THYROID 02/14/24 0 04/24/25 History (Synthroid) fluticasone propionate 230 2 inh inhalation BID ASTHMA #1 ea 02/13/25 04/24/25 Rx mcg-salmeterol 21 mcg/actuation HFA inhaler (Advair HFA) aspirin 81 mg tablet,delayed 81 mg PO DAILY SUPPLEMENT #360 tab s 03/01/25 04/24/25 Rx release (Adult Aspirin Regimen) clopidogrel 75 mg tablet (Plavix) 75 mg PO DAILY BLOOD THINNER #30 03/01/25 04/24/25 Rx tabs budesonide-formoterol HFA 160 2 puff inhalation BID ASTHMA 03/2004/24/25 History mcg-4.5 mcg/actuation aerosol inhaler montelukast 10 mg tablet 10 mg PO QPM ASTHMA 04/09/2504/24 History amlodipine 10 mg tablet 10 mg PO DAILY #30 tabs 04/13/25 0 04/24/25 Rx clonidine HCl 0.1 mg tablet 0.1 mg PO BID #60 tabs 04/13/25 Rx furosemide 40 mg tablet 40 mg PO BIDLX #60 tabs 04/13/25 0 04/24/25 Rx hydralazine 50 mg tablet 100 mg (2 x 50 mg) PO TID #180 tab s 04/13/25 04/24/25 Rx metoprolol succinate 50 mg 150 mg (3 x 50 mg) PO BID #180 tab s 04/13/25 04/24/25 Rx tablet,extended release 24 hr potassium chloride 10 mEq 20 meq (2 x 10 mEq) PO DAILY #60 0 04/13/25 04/24/25 Rx tablet,extended release (Klor-Con) tabs Is last menstrual period known: No Post menopausal: Yes Patient : No Have you fallen in the past year?: No Subjective Details: Elisabeth Wilde is a 75 y/o female who presents today for initial postoperative follow-up s/p L CEA 04/09/25 which was complicated by significant hypertension (present pre-operatively) with reperfusion syndrome; her hospital stay was longer than usual to allow for improved blood pressure management. She reports that since she has been home, no recurrent headaches, nausea, or vomiting. She denies any episodes of weakness/numbness/pare sthesias/dysarthria/fa cial drooping. She reports she has felt generally a bit fatigued still but no other complaints. She has been monitoring her BPs and at home she is generally 120s systolic though has an occasional elevated reading. She sees her PCP on and is due for some labs at that time as well. Objective Details: A Ox3, NAD RRR L Neck incision site well-healed, some skin glue still adherent. No swelling, erythema, ecchymosis. Bilateral radial pulses palpable, equal in strength Coding Level of Care Code Global Post Op Diagnoses Carotid stenosis, bilateral I65.23 [facility] Medical History (Updated 04/24/25 @ 14:16 by KANNAN Bermudez) Carotid stenosis, bilateral Wears glasses Post-menopausal Anxiety Thyroid disease Arthritis History of renal disease High cholesterol Easy bruising Gastric reflux History of hiatal hernia Graves disease Former smoker Cardiology follow-up encounter History of echocardiogram History of stress test Hiatal hernia Pneumonia COPD (chronic obstructive pulmonary disease) Bronchitis Chest pain, unspecified Asthma HTN (hypertension) Cough Shortness of breath Surgical History (Updated 04/21/25 @ 00:01 by Background Daemon) History of bilateral cataract extraction History of cardiac catheterization His (more content not included)... Normal [facility] Discharge Instructionon 04-01 Discharge Instruction [facility] Medical Records Department [address] [place] [address] Instructions for Home/Discharge Instructions 04/13/25 0958 MR#: [id number] Acct: [id number] Name: ELISABETH WILDE Rep #: [id number] : 1950 75 From: Wiley Guerrero DO PCP: Amanda Bahena PA-C Status:ADM IN Discharge Instructions Diet Discharge Diet: No restrictions DC O2, CPAP, BIPAP needs Home O2 Discharge instructions: No Dressing / Incision Discharge Activity: Return to Normal Activity and May Drive Weight Bearing Status: Full weight bearing Follow Up Care Test Results: Test results from this visit will be discussed in further detail at your follow-up appointment, if applicable. Discharge Plan Admission Admit Date/Time: 04/09/25 10:34 Primary Reason for Your Visit: Left carotid endarterectomy Attending Provider: Papo Sumner Primary Care Provider: Amanda Bahena Consulting Providers: Amos Fontaine; Matteo Griggs; Destiny Banerjee; Markus Boles; Markus Serra; Papo Oconnor; Kathrine Triplett; Jose A Murry; Maame Reese; Wiley Guerrero; Steph Travis; Albaro Lee; Johnie Ratliff; Michele Joyce; Waleska Wallace; Italo Petty; Maximo Au Instructions Additional Instructions / Restrictions: INCISION CARE: You have a small bandage on your neck over the site from which the surgical drain was removed. You may remove this bandage tonight after you shower. As long as there is no residual drainage, you may leave this open to air. If you do notice some continued drainage, you may re-cover with a Band-Aid. Your neck incision site is covered with skin glue which will continue to protect it. The skin glue will peel/flake off on its own over the next few weeks. Please do not pick at it. You may shower tonight. It is okay for soap and water to rinse over the incision site, pat to dry. Do not submerge the incision site in water such as to take a bath or go swimming etc. for 3 weeks. ACTIVITY INSTRUCTIONS Do not lift greater than 20 pounds for 3 weeks. Otherwise, please continue with activity as tolerated. Do not drive until you can turn your head well enough to safely check your blind spots. FOLLOW-UP INSTRUCTIONS You are scheduled for follow-up in the office on 04/24/25. If you need to change this appointment or have any other questions/concerns, please call the office at [phone]. Discharge Orders/Prescriptions Prescriptions: New furosemide 40 mg Tablet 40 mg PO BIDLX Qty: 60 0RF clonidine HCl 0.1 mg Tablet 0.1 mg PO BID Qty: 60 0RF metoprolol succinate 50 mg Tablet Extended Release 24 Hr 150 mg PO BID Qty: 180 0RF hydralazine 50 mg Tablet 100 mg PO TID Qty: 180 0RF potassium chloride [Klor-Con 10] 10 mEq tablet extended release 20 meq PO DAILY Qty: 60 0RF amlodipine 10 mg Tablet 10 mg PO DAILY Qty: 30 0RF Continued cetirizine [Zyrtec] 10 mg tablet 10 mg PO DAILY PRN (Reason: allergy symptoms) albuterol sulfate [Ventolin HFA] 90 mcg/actuation HFA aerosol inhaler 2 puff inhalation Q4H PRN (Reason: shortness of breath or wheezing) Qty: 8.5 6RF levothyroxine [Synthroid] 150 mcg tablet 150 mcg PO QDAY fluticasone propion-salmeterol [Advair HFA] 230-21 mcg/actuation HFA aerosol inhaler 2 inh inhalation BID Qty: 1 11RF Patient Comments: WILL START TAKING AFTER DONE WITH SYMBICORT. HAD TO SWITCH INHALERS D/T INSURANCE clopidogrel [Plavix] 75 mg tablet 75 mg PO DAILY Qty: 30 1RF aspirin [Adult Aspirin Regimen] 81 mg tablet,delayed release (DR/EC) 81 mg PO DAILY Qty: 360 0RF ipratropium-albuterol 3 ML solution for nebulization 3 ml INHALATION Q4H PRN PRN (Reason: Sob /Or Wheezing) clonidine HCl 0.1 mg tablet 0.1 mg PO BID Qty: 60 0RF budesonide-formoterol 160-4.5 mcg/actuation HFA aerosol inhaler 2 puff inhalation BID Patient Comments: LAST DJOSE WILL BE 03/30/25 D/T TO INSURANCE CHANGING. WILL START ADVAIR THEN montelukast 10 mg tablet 10 mg PO QPM Discontinued naproxen 500 mg tablet 500 mg PO BID PRN (Reason: pain) metoprolol succinate 50 mg tablet extended release 24 hr 25 mg PO BID hydrochlorothiazide 25 MG tablet 25 mg PO DAILY Patient Comments: bp Other Ambulatory Orders: 12 Lead EKG (Routine) Timeframe: [id number] Location: None Selected Ordered By: Dr. Matt Ibarra Referrals / Follow Up: Papo Sumner MD [Med Staff - Active Staff] - See Referral Note (As scheduled) Amanda Bahena PA-C [Primary Care Provider] - In 1 Week (You will need to have a BMP (lab work) done to check your potassium) Disposition Disposition (needs filled in before D/C Order can be placed): Home, Self Care 04/13/25 1013 Wiley Guerrero DO CC: LORNA Bahena; KANNAN Mcbride; Dr. Matteo Griggs MD; Dr. Amos Fontaine DO; Dr. Destiny Banerjee MD; Dr. Markus Serra MD; Dr. Markus Boles DO; Dr. Papo Oconnor DO; Dr. Chisholm (more content not included)... Normal [facility] Surgical pathology reportOrd ered By: Kobi Jacobs on 04-12-2025 Surgical pathology study [facility] Brain/Head without Contrasto n 04-11-2025 Brain/Head without Contrast [facility] Imaging Services [address] [place] [address] [id number] Brain/Head without Contrast MR#: [id number] Acct: [id number] Name: ROBERTASTACEYMarcusELISABETH KAY Rep #: [id number] : 1950 F 75 From: Luther Simms MD PCP: Amanda Bahena PA-C Status: ADM IN Study: Brain/Head without Contrast Date of Exam: 04/01 11/25 Exam# [id number] Ordering Dr: Papo Sumner MD PROCEDURE: BRAIN/HEAD WITHOUT CONTRAST 04/11/2025 REASON FOR EXAM: HYPERTENSION TECHNIQUE: Head CT without intravenous contrast. Coronal and Sagittal reconstruction series were provided. One or more dose reduction techniques were used (e.g., Automated exposure control, adjustment of the mA and/or kV according to patient size, use of iterative reconstruction technique. RADIATION DOSE SUMMARY: CTDlvol: 44.99 mGy DLP: 829.85 mGycm COMPARISON: None. FINDINGS: The ventricles are normal in size and midline in position. No evidence of acute hemorrhage or infarction. No extra-axial blood or fluid collections. The paranasal sinuses are clear. The mastoid air cells are well aerated. The calvarial vault and skull base are intact. CT/Brain/Head without Contrast IMPRESSION: NO ACUTE FINDINGS Reading Location: [id number] CC: LORNA Bahena; Dr. Papo Sumner MD Induction Heating Equipment Setter: Signed Normal [facility] Absolute lymphocyte countOrd ered By: Papo Sumner on 04-10-2025 Lymphocytes Auto (Unsp spec) [#/Vol] 0.96 10*3/uL 0.83-4.51 [facility] Absolute neutrophil countOrd ered By: Papo Sumner on 04-10-2025 Neutrophils (Bld) [#/Vol] 14.8 10*3/uL High 2.0-7.7 [facility] Anion gap in Serum or Plasma Ordered By: Amos Fontaine on 04-10-2025 Anion gap [Moles/Vol] 10 mmol/L 5-15 [facility] Automated lymphocyte count a s percentage of total leukocytesOrdered By: Papo Sumner on 04-10-2025 Lymphocytes/100 WBC Auto (Unsp spec) 5.7 % Low 19-41 [facility] BUN/creatinine ratioOrdered By: Amos Fontaine on 04-10-2025 Urea nitrogen/Creatinine [Mass ratio] 25.4 mg/mg High 10-20 [facility] Basic Metabolic Profile (BMP )on 04-10-2025 BUN/CRE 25.4 RATIO High -20 [facility] Comment on above: Performed By: #### L 500.2500 #### [facility] [address] [place], [address] Calcium [Mass/Vol] 8.8 mg/dL Normal 7.6-11.0 [facility] Comment on above: Performed By: #### L 500.2500 #### [facility] [address] [place], [address] Chloride [Moles/Vol] 109 mmol/L High 98-108 [facility] Comment on above: Performed By: #### L 500.2500 #### [facility] [address] [place], [address] CO2 [Moles/Vol] 20.3 mmol/L Low 21.0-32.0 [facility] Comment on above: Performed By: #### L 500.2500 #### [facility] [address] [place], [address] Creatinine [Mass/Vol] 0.68 mg/dL Low 0.70-1.20 [facility] Comment on above: Performed By: #### L 500.2500 #### [facility] [address] [place], [address] ECRCL 64.66 ml/min Normal 50-250 [facility] Comment on above: Performed By: #### L 500.2500 #### [facility] [address] [place], [address] GAP 10 Normal 5-15 [facility] Comment on above: Performed By: #### L 500.2500 #### [facility] [address] [place], [address] GFR/1.73 sq M.predicted among non-blacks MDRD (S/P/Bld) [Vol rate/Area] 92 mL/min/{1.73_m2} Normal >60 [facility] Comment on above: Result Comment: mL/m in/1.73m2 CKD-EPI Creatinine Equation (2020) Performed By: #### L 500.2500 #### [facility] [address] [place], [address] Glucose [Mass/Vol] 111 mg/dL High 70-99 [facility] Comment on above: Performed By: #### L 500.2500 #### [facility] [address] [place], [address] Potassium [Moles/Vol] 3.5 mmol/L Normal 3.3-5.1 [facility] Comment on above: Performed By: #### L 500.2500 #### [facility] [address] [place], [address] Sodium [Moles/Vol] 139 mmol/L Normal 133-145 [facility] Comment on above: Performed By: #### L 500.2500 #### [facility] [address] [place], [address] Urea nitrogen [Mass/Vol] 17 mg/dL Normal 4-19 [facility] Comment on above: Performed By: #### L 500.2500 #### [facility] [address] [place], [address] Basophil percentageOrdered B y: Papo Sumner on 04-10-2025 Basophils/100 WBC (Bld) 0.4 % 0-1 [facility] CBC W/Diff, Automatedon 04-01 Absolute Lymph 0.96 X10 3/uL Normal 0.83-4.51 [facility] Comment on above: Performed By: #### L 100.0100 ####[facility] [address] [place], [address] Absolute Neut 14.8 X10 3/uL High 2.0-7.7 [facility] Comment on above: Performed By: #### L 100.0100 ####[facility] [address] [place], [address] Basophils/100 WBC (Bld) 0.4 % Normal 0-1 [facility] Comment on above: Performed By: #### L 100.0100 ####[facility] [address] [place], [address] Eosinophils/100 WBC (Bld) 0.4 % Normal 0-5 [facility] Comment on above: Performed By: #### L 100.0100 ####[facility] [address] [place], [address] Erythrocyte distribution width (RBC) [Ratio] 15.9 % High 11.6-14.6 [facility] Comment on above: Performed By: #### L 100.0100 ####[facility] [address] [place], [address] Hematocrit (Bld) [Volume fraction] 35.4 % Low 37-47 [facility] Comment on above: Performed By: #### L 100.0100 ####[facility] [address] [place], [address] Hemoglobin (Bld) [Mass/Vol] 12.1 g/dL Normal 12.0-15.0 [facility] Comment on above: Performed By: #### L 100.0100 ####[facility] [address] [place], [address] IG% 0.400 Normal 0.0-0.9 [facility] Comment on above: Result Comment: IG% - Immature Granulocytes (promyelocytes, myelocytes and metamyelocytes) > 1% indicates that a LEFT SHIFT is Present. Performed By: #### L 100.0100 ####[facility] [address] [place], [address] Lymphocytes/100 WBC (Bld) 5.7 % Low 19-41 [facility] Comment on above: Performed By: #### L 100.0100 ####[facility] [address] [place], [address] MCH (RBC) [Entitic mass] 30.9 pg Normal 27.0-32.0 [facility] Comment on above: Performed By: #### L 100.0100 ####[facility] [address] [place], [address] MCHC (RBC) [Mass/Vol] 34.2 g/dL Normal 32-36 [facility] Comment on above: Performed By: #### L 100.0100 ####[facility] [address] [place], [address] MCV (RBC) [Entitic vol] 90.3 fL Normal 81-99 [facility] Comment on above: Performed By: #### L 100.0100 ####[facility] [address] [place], [address] Monocytes/100 WBC (Bld) 5.0 % Normal 0-10 [facility] Comment on above: Performed By: #### L 100.0100 ####[facility] [address] [place], [address] Neutrophils/100 WBC (Bld) 88.1 % High 47-70 [facility] Comment on above: Performed By: #### L 100.0100 ####[facility] [address] [place], [address] Nucleated RBC (Bld) [#/Vol] 0 10*3/uL Normal 0-5 [facility] Comment on above: Performed By: #### L 100.0100 ####[facility] [address] [place], [address] Platelet mean volume (Bld) [Entitic vol] 10.2 fL Normal 6.2-12.0 [facility] Comment on above: Performed By: #### L 100.0100 ####[facility] [address] [place], [address] Platelets (Bld) [#/Vol] 301 10*3/uL Normal 150-450 [facility] Comment on above: Performed By: #### L 100.0100 ####[facility] [address] [place], [address] RBC (Bld) [#/Vol] 3.92 10*6/uL Low 4.2-5.4 [facility] Comment on above: Performed By: #### L 100.0100 ####[facility] [address] [place], [address] RDW SD 52.6 fl High 35.1-43.9 [facility] Comment on above: Performed By: #### L 100.0100 ####[facility] [address] [place], [address] WBC (Bld) [#/Vol] 16.8 10*3/uL High 4.4-11.0 [facility] Comment on above: Performed By: #### L 100.0100 ####[facility] [address] [place], [address] Carbon dioxide, total [Moles /volume] in Central venous bloodOrdered By: Amos Fontaine on 04-10-2025 CO2 [Moles/Vol] 20.3 mmol/L Low 21.0-32.0 [facility] Chloride assayOrdered By: Chris Fontaine on 04-10-2025 Chloride [Moles/Vol] 109 mmol/L High 98-108 [facility] Echo Complete W/ Contraston 04-10-2025 Echo Complete W/ Contrast [facility] [address] [place] [address] Echo Complete W/ Contrast 04/10/25 1356 MR#: [id number] Acct: [id number] Name: ELISABETH WILDE Rep #: [id number] : 1950 75 From: Lisa Seymour MD Attending Dr: Dr. Papo Sumner MD Status: ADM I N Ordering Dr: Wiley Guerrero DO Date: 04/10/25 Location: ICU Sex: F C Admitted: 04/09/25 Reason For Study Reason For Study: ATRIAL FIBRILLATION Procedure This was a 2D Doppler, Color Flow transthoracic echocardiogram. Contrast injection was performed. The patient was scanned supine. Exam performed portable in ICU/CCU. Left Ventricle Normal LV size. Moderate concentric left ventricular hypertrophy. The LV systolic function is normal. EF is 60 %. Stage 1 diastolic dysfunction. Right Ventricle Normal right ventricle. Atria The left and right atria are normal. Mitral Valve Trivial mitral valve insufficiency. Tricuspid Valve Mild to moderate (1-2+) tricuspid valve insufficiency. Right ventricular systolic pressure estimated to be 37 mmHg. Aortic Valve Aortic sclerosis, no stenosis. Pulmonic Valve Trivial pulmonic valve insufficiency. Great Vessels Normal sized aortic root. Pericardium/Pleural No pericardial effusion. Medication Diluted definity 1ml given slow IV push to enhance endocardial definition. MMode/2D Measurements Calculations LVIDd: 3.3 cm IVSd: 1.5 cm LVOT diam: 2.0 cm LVIDs: 2.4 cm LVPWd: 1.3 cm RVDd: 2.8 cm FS: 26.0 % LVOT area: 3.2 cm2 LA dimension: 3.8 cm asc Aorta Diam: 3.5 cm LAV(MOD-bp): 44.0 ml LAV(MOD-bp) Indexed: 23.9 ml/m2 LAV(MOD-sp2): 45.6 ml LAV(MOD-sp4): 40.1 ml SV(MOD-sp4): 31.9 ml LVAd ap4: 23.6 cm2 LVAd ap2: 27.2 cm2 LVLd ap4: 7.3 cm LVLd ap2: 7.9 cm SI(MOD-sp4): 17.3 ml/m2 EDV(MOD-sp4): 61.9 ml EDV(MOD-sp2): 75.1 ml EDV(sp4-el): 64.6 ml EDV(sp2-el): 79.7 ml LVAs ap4: 15.4 cm2 LVAs ap2: 16.4 cm2 LVLs ap4: 6.9 cm LVLs ap2: 6.9 cm ESV(MOD-sp4): 30.0 ml ESV(MOD-sp2): 32.9 ml ESV(sp4-el): 29.4 ml ESV(sp2-el): 33.3 ml EF(MOD-sp4): 51.5 % EF(MOD-sp2): 56.2 % EF(sp4-el): 54.5 % SV(MOD-sp2): 42.2 ml SV(sp4-el): 35.2 ml Ao sinus diam: 2.8 cm SI(MOD-sp2): 22.9 ml/m2 Ao ST Junction: 2.4 cm LA dimension(2D): 3.7 cm LA A4 area: 16.7 cm2 RA A4 area: 14.5 cm2 TAPSE: 2.2 cm Time Measurements MV dec time: 0.15 sec Doppler Measurements Calculations MV E max agustín: 104.4 cm/sec Ao V2 max: 142.2 cm/sec LV V1 max: 104.0 cm/sec Ao max P.1 mmHg LV V1 max P.3 mmHg Ao V2 mean: 99.8 cm/sec LV V1 mean P.1 mmHg Ao mean P.6 mmHg LV V1 mean: 67.4 cm/sec Ao V2 VTI: 24.4 cm LV V1 VTI: 18.7 cm AV (velocity ratio): 0.77 JACQUELIN(I,D): 2.5 cm2 JACQUELIN(V,D): 2.4 cm2 SV(LVOT): 60.8 ml PA V2 max: 87.8 cm/sec TR max agustín: 283.5 cm/sec TR max P.2 mmHg ECHO/Echo Complete W/ Contrast Interpretation Summary Moderate concentric left ventricular hypertrophy. The LV systolic function is normal. EF is 60 %. Stage 1 diastolic dysfunction. Mild to moderate (1-2+) tricuspid valve insufficiency. Right ventricular systolic pressure estimated to be 37 mmHg. Aortic sclerosis, no stenosis. Ordering Physician: Wiley Guerrero Referring Physician: AMANDA BAHENA Performed By: Britney Lock RDCS and Student 04/10/25 1535 Date Lisa Seymour MD CC: LORNA Bahena; Dr. Papo Sumner MD; Dr. Wiley Guerrero DO Date Dictated: 04/10/25 135 Date Transcribed: 04/10/251534 Induction Heating Equipment Setter: Signed Normal [facility] Echocardiogram study reportO rdered By: Lisa Seymour on 04-10-2025 Study report [facility] [address] [place] [address] Echo Complete W/ Contrast 04/10/25 1356 MR#: [id number] Acct: [id number] Name: ELISABETH WILDE Rep #:[id number] : 1950 75 From: Lisa Seymour MD Attending Dr: Dr. Papo Sumner MD S tatus: ADM IN Ordering Dr: Wiley Guerrero DO Date: 04/10/25 Location: ICU Sex: F C Admitted: 04/09/25 Reason For Study Reason For Study: ATRIAL FIBRILLATION Procedure This was a 2D Doppler, Color Flow transthoracic echocardiogram. Contrast injection was performed. The patient was scanned supine. Exam performed portable in ICU/CCU. Left Ventricle Normal LV size. Moderate concentric left ventricular hypertrophy. The LV systolic function is normal. EF is 60 %. Stage 1 diastolic dysfunction. Right Ventricle Normal right ventricle. Atria The left and right atria are normal. Mitral Valve Trivial mitral valve insufficiency. Tricuspid Valve Mild to moderate (1-2+) tricuspid valve insufficiency. Right ventricular systolic pressure estimated to be 37 mmHg. Aortic Valve Aortic sclerosis, no stenosis. Pulmonic Valve Trivial pulmonic valve insufficiency. Great Vessels Normal sized aortic root. Pericardium/Pleural No pericardial effusion. Medication Diluted definity 1ml given slow IV push to enhance endocardial definition. MMode/2D Measurements & Calculations LVIDd: 3.3 cm IVSd: 1.5 cm LVOT diam: 2.0 cm LVIDs: 2.4 cm LVPWd: 1.3 cm RVDd: 2.8 cm FS: 26.0 % LVOT area: 3.2 cm2 LA dimension: 3.8 cm asc Aorta Diam: 3.5 cm LAV(MOD-bp): 44.0 ml LAV(MOD-bp) Indexed: 23.9 ml/m2 LAV(MOD-sp2): 45.6 ml LAV(MOD-sp4): 40.1 ml SV(MOD-sp4): 31.9 ml LVAd ap4: 23.6 cm2 LVAd ap2: 27.2 cm2 LVLd ap4: 7.3 cm LVLd ap2: 7.9 cm SI(MOD-sp4): 17.3 ml/m2 EDV(MOD-sp4): 61.9 ml EDV(MOD-sp2): 75.1 ml EDV(sp4-el): 64.6 ml EDV(sp2-el): 79.7 ml LVAs ap4: 15.4 cm2 LVAs ap2: 16.4 cm2 LVLs ap4: 6.9 cm LVLs ap2: 6.9 cm ESV(MOD-sp4): 30.0 ml ESV(MOD-sp2): 32.9 ml ESV(sp4-el): 29.4 ml ESV(sp2-el): 33.3 ml EF(MOD-sp4): 51.5 % EF(MOD-sp2): 56.2 % EF(sp4-el): 54.5 % SV(MOD-sp2): 42.2 ml SV(sp4-el): 35.2 ml Ao sinus diam: 2.8 cm SI(MOD-sp2): 22.9 ml/m2 Ao ST Junction: 2.4 cm LA dimension(2D): 3.7 cm LA A4 area: 16.7 cm2 RA A4 area: 14.5 cm2 TAPSE: 2.2 cm Time Measurements MV dec time: 0.15 sec Doppler Measurements & Calculations MV E max agustín: 104.4 cm/sec Ao V2 max: 142.2 cm/sec LV V1 max: 104.0 cm/sec Ao max P.1 mmHg LV V1 max P.3 mmHg Ao V2 mean: 99.8 cm/sec LV V1 mean P.1 mmHg Ao mean P.6 mmHg LV V1 mean: 67.4 cm/sec Ao V2 VTI: 24.4 cm LV V1 VTI: 18.7 cm AV (velocity ratio): 0.77 JACQUELIN(I,D): 2.5 cm2 JACQUELIN(V,D): 2.4 cm2 SV(LVOT): 60.8 ml PA V2 max: 87.8 cm/sec TR max agustín: 283.5 cm/sec TR max P.2 mmHg ECHO/Echo Complete W/ Contrast Interpretation Summary Moderate concentric left ventricular hypertrophy. The LV systolic function is normal. EF is 60 %. Stage 1 diastolic dysfunction. Mild to moderate (1-2+) tricuspid valve insufficiency. Right ventricular systolic pressure estimated to be 37 mmHg. Aortic sclerosis, no stenosis. Ordering Physician: Wiley Guerrero Referring Physician: AMANDA BAHENA Performed By: Britney Lock RDCS and Student 04/10/25 1537 Date _ Lisa Seymour MD CC: LORNA Bahena; Dr. Papo Sumner MD; Dr. Wiley Guerrero DO ~ Date Dictated: 04/10/25 1356 Date Transcribed: 04/10/251534 Induction Heating Equipment Setter: Signed [facility] Work Phone: Eosinophil percentageOrdered By: Papo Sumner on 04-10-2025 Eosinophils/100 WBC (Bld) 0.4 % 0-5 [facility] Erythrocyte distribution wid th ratioOrdered By: Papo Sumner on 04-10-2025 Erythrocyte distribution width (RBC) [Ratio] 15.9 % High 11.6-14.6 [facility] Erythrocyte distribution wid th standard deviationOrdered By: Papo Sumner on 04-10-2025 Erythrocyte distribution width (RBC) [Ratio] 52.6 fl High 35.1-43.9 [facility] Free T3on 04-10-2025 Free T3 [Mass/Vol] 2.2 pg/mL Normal 2.18-3.98 [facility] Comment on above: Performed By: #### L 501.9310, L501.53349 #### [facility] Laboratory [facility] [place], [address] Free K4Hsmlgtz By: Wiley wei on 04-10-2025 Free T3 [Mass/Vol] 2.2 pg/mL 2.18-3.98 [facility] Glomerular filtration rate ( GFR) estimation/1.73 sq m using serum, plasma, or whole bOrdered By: Amos Fontaine on 04-10-2025 GFR/1.73 sq M.predicted among non-blacks MDRD (S/P/Bld) [Vol rate/Area] 92 mL/min/{1.73_m2} >60 [facility] Comment on above: mL/min/1.73m2 CKD-EP I Creatinine Equation (2020) Hematocrit Auto (Bld) [Volum e fraction]Ordered By: Papo Sumner on 04-10-2025 Hematocrit (Bld) [Volume fraction] 35.4 % Low 37-47 [facility] Hemoglobin measurementOrdere d By: Papo Sumner on 04-10-2025 Hemoglobin (Bld) [Mass/Vol] 12.1 g/dL 12.0-15.0 [facility] Immature granulocytes/100 WB C Auto (Bld)Ordered By: Papo Sumner on 04-10-2025 Immature granulocytes/100 WBC (Bld) 0.400 % 0.0-0.9 [facility] Comment on above: IG% - Immature Granu locytes (promyelocytes, myelocytes and metamyelocytes) > 1% indicates that a LEFT SHIFT is Present. MCV (mean corpuscular volume ) determinationOrdered By: Papo Sumner on 04-10-2025 MCV (RBC) [Entitic vol] 90.3 fL 81-99 [facility] Mean corpuscular hemoglobin (MCH) determinationOrdered By: Papoluis Sumner on 04-10-2025 MCH (RBC) [Entitic mass] 30.9 pg 27.0-32.0 [facility] Mean corpuscular hemoglobin concentration (MCHC) determinationOrdered By: Papoluis Sumner on 04-10-2025 MCHC (RBC) [Mass/Vol] 34.2 g/dL 32-36 [facility] Mean platelet volume determi nationOrdered By: Papo Sumner on 04-10-2025 Platelet mean volume (Bld) [Entitic vol] 10.2 fL 6.2-12.0 [facility] Monocyte percentageOrdered B y: Papo Sumner on 04-10-2025 Monocytes/100 WBC (Bld) 5.0 % 0-10 [facility] Neutrophil percentageOrdered By: Papo Sumner on 04-10-2025 Neutrophils/100 WBC (Bld) 88.1 % High 47-70 [facility] Nucleated red blood cell per centageOrdered By: Papo Sumner on 04-10-2025 Nucleated RBC/100 WBC (Bld) [Ratio] 0 % 0-5 [facility] Platelet countOrdered By: Antonio smith Taisha on 04-10-2025 Platelets (Bld) [#/Vol] 301 10*3/uL 150-450 [facility] Potassium measurement (mass/ volume)Ordered By: Amos Fontaine on 04-10-2025 Potassium (Unsp spec) [Mass/Vol] 3.5 mmol/L 3.3-5.1 [facility] RBC Auto (Bld) [#/Vol]Ordere d By: Papo Sumner on 04-10-2025 RBC (Bld) [#/Vol] 3.92 10*6/uL Low 4.2-5.4 [facility] Serum creatinine measurement (mass/volume)Ordered By: Amos Fontaine on 04-10-2025 Creatinine [Mass/Vol] 0.68 mg/dL Low 0.70-1.20 [facility] Serum glucose measurement (m ass/volume)Ordered By: Amos Fontaine on 04-10-2025 Glucose [Mass/Vol] 111 mg/dL High 70-99 [facility] Serum or plasma calcium gabby urement (mass/volume)Ordered By: Amos Fontaine on 04-10-2025 Calcium [Mass/Vol] 8.8 mg/dL 7.6-11.0 [facility] Serum or plasma urea nitroge n measurement (mass/volume)Ordered By: Amos Fontaine on 04-10-2025 Urea nitrogen [Mass/Vol] 17 mg/dL 4-19 [facility] Sodium levelOrdered By: Wilder Fontaine on 04-10-2025 Sodium [Moles/Vol] 139 mmol/L 133-145 [facility] T4 Total, Thyroxinon 025 T4 [Mass/Vol] 14.3 ug/dL High 4.8-13.9 [facility] Comment on above: Performed By: #### L 501.9310, L501.05936 ####[facility] [address] [place], [place], [id number] ThyroxineOrdered By: Wiley Finn on 04-10-2025 T4 [Mass/Vol] 14.3 ug/dL High 4.8-13.9 [facility] White blood cell (WBC) count Ordered By: Papo Sumner on 04-10-2025 WBC (Bld) [#/Vol] 16.8 10*3/uL High 4.4-11.0 [facility] ACT Activated Clotting Timeo n 04-09-2025 ACTk CLOT TIME 245 sec High 74-137 [facility] Comment on above: Performed By: #### L 9100.0100 #### [facility] [address] [place], [address] ACTk CLOT TIME 124 sec Normal 74-137 [facility] Comment on above: Performed By: #### L 9100.0100 #### [facility] [address] [place], [address] ACTk CLOT TIME 314 sec High 74-137 [facility] Comment on above: Performed By: #### L 9100.0100 ####[facility] [address] [place], [address] Basic Metabolic Profile (BMP )on 04-09-2025 BUN/CRE 29.1 RATIO High 10-20 [facility] Comment on above: Performed By: #### L 500.2500 #### [facility] [address] [place], [address] Calcium [Mass/Vol] 9.1 mg/dL Normal 7.6-11.0 [facility] Comment on above: Performed By: #### L 500.2500 #### [facility] [address] [place], [address] Chloride [Moles/Vol] 110 mmol/L High 98-108 [facility] Comment on above: Performed By: #### L 500.2500 #### [facility] [address] [place], [address] CO2 [Moles/Vol] 19.4 mmol/L Low 21.0-32.0 [facility] Comment on above: Performed By: #### L 500.2500 #### [facility] [address] [place], [address] Creatinine [Mass/Vol] 0.65 mg/dL Low 0.70-1.20 [facility] Comment on above: Performed By: #### L 500.2500 #### [facility] [address] [place], [address] ECRCL 64.66 ml/min Normal 50-250 [facility] Comment on above: Performed By: #### L 500.2500 #### [facility] [address] [place], [address] GAP 12 Normal 5-15 [facility] Comment on above: Performed By: #### L 500.2500 #### [facility] [address] [place], [address] GFR/1.73 sq M.predicted among non-blacks MDRD (S/P/Bld) [Vol rate/Area] 93 mL/min/{1.73_m2} Normal >60 [facility] Comment on above: Result Comment: mL/m in/1.73m2 CKD-EPI Creatinine Equation (2020) Performed By: #### L 500.2500 #### [facility] [address] [place], [address] Glucose [Mass/Vol] 145 mg/dL High 70-99 [facility] Comment on above: Performed By: #### L 500.2500 #### [facility] [address] [place], [address] Potassium [Moles/Vol] 3.7 mmol/L Normal 3.3-5.1 [facility] Comment on above: Performed By: #### L 500.2500 #### [facility] [address] [place], [address] Sodium [Moles/Vol] 142 mmol/L Normal 133-145 [facility] Comment on above: Performed By: #### L 500.2500 #### [facility] [address] [place], [place], [address] Urea nitrogen [Mass/Vol] 19 mg/dL Normal 4-19 [facility] Comment on above: Performed By: #### L 500.2500 #### [facility] [address] [place], [place], [address] CTA Neck W/WO Contraston CTA Neck W/WO Contrast [facility] Imaging Services [address] [place], [place] [address] CTA Neck W/WO Contrast MR#: [id number] Acct: [id number] Name: ELISABETH WILDE Rep #: [id number] : 1950 F 75 From: Karly Vargas nd, MD PCP: Amanda Bahena PA-C Status: ADM IN Study: CTA Neck W/WO Contrast Date of Exam: 04/09/25 Exam# [id number] Ordering Dr: Papo Sumner MD PROCEDURE: CTA [...] are widely patent. origin of the right SCHEDULE MAKER. Other findings: Cervical spondylosis and diffuse osseous [...] large vessel occlusion is visualized. Reading Location: [id number] CC: LORNA Bahena; Dr. Papo Sumner MD Induction Heating Equipment Setter: Signed Normal [facility] Consultation - Hospitaliston 04-09-2025 Consultation - Hospitalist [facility] Medical Records Department [address] [place] [address] Consultation - Hospitalist 04/09/25 1535 MR#: [id number] Acct: [id number] Name: ELISABETH WILDE Rep #: [id number] : 1950 75 From: Amos Fontaine DO PCP: Amanda Bahena PA-C Status:ADM IN Location: ICU ICU06-1 Assessment Plan Assessment/Plan (1) Carotid stenosis, bilateral: PLAN: Plan Patient is a 75-year-old female who presented to [facility] on 04/09/25 for planned left carotid endarterectomy [...] for Consultation: Postoperative medical management HPI Narrative: ELISABETH WILDE, is a 75 F who presented to [facility] on 04/09/2025 for planned left carotid endarterectomy [...] She denied any other acute concerns currently. [facility] Medical History Wears glasses Post-menopausal Anxiety [...] mg tablet 25 mg PO DAILY BP 08/02/1708/2 5 07:00 History ipratropium 0.5 mg-albuterol 3 [...] s 08/24/2304/08 (more content not included)... Normal [facility] Decalcification bone/plaqueo n 04-09-2025 Decalcification bone/plaque ---- Patient Age/Sex Location Account Attending Physician ---- ELISABETH WILDE 75/F [facility] [id number] Dr. Papo Sumner MD ---- Specimen: [id number] Received: 04/09/25 Status: JJ Montilla Num: [id number] Spec Type: PLAQUE Subm Dr: Dr. Papo Sumner MD HEADER OPERATION: Left carotid endarterectomy PRE-OP DIAGNOSIS: Carotid stenosis, bilateral TISSUE SUBMITTED: A- Left carotid plaque ---- MICROSCOPIC DIAGNOSIS A. Left carotid artery, left endarterectomy: * Partially calcified atheromatous plaque GROSS DESCRIPTION A. Received in formalin labeled with the patient's name and date of . Designated as left carotid plaque is a 3.7 x 1.0 x 0.5 cm louise-yellow calcified plaque. Anthropology Faculty Member sections cassettes, following decalcification. [facility] 04/10/2025 CPT:41532,59206 ---- Patient Age/Sex Location Account Attending Physician ---- ELISABETH WILDE 75/F ICU [id number] Dr. Papo Sumner MD ---- Signed (signature on file) Dr. Kobi Buchanan MD 04/12/25 1624 ---- Normal [facility] Comment on above: Performed By: #### P DEC ####[facility] [address] [facility] [place], [address] MR/POSTOP.Jonn 04-09-2025 MR/POSTOP.[facility] Medical Records Department [address] [place] [address] Anesthesia Postop Eval I 04/09/25 1111 MR#: [id number] Acct: [id number] Name: ROBERTASTACEYMarcusELISABETH LOPEZ Rep #: [id number] : 1950 75 From: Herson Oshea CRNA PCP: Amanda Bahena PA-C Status:ADM IN Y Race: C Location: [place] [address] Anesthesia: Postop Eval I Current Vital Signs [...] 1 completed: Yes 04/09/25 1112 Date Herson Oshea KNOCKDOWN MAN Cosigner Signature: Date CC: Signed Normal [facility] MR/MHTMYRLW1ry 04-09-2025 [facility] Medical Records Department [address] [facility] [place] [address] Anesthesia Postop Eval II 04/09/25 1147 MR#: [id number] Acct: [id number] Name: CHANIELISABETH LOPEZ Rep #: [id number] : 1950 75 From: Matt Ibarra MD PCP: Amanda Bahena PA-C Status:ADM IN Y Race: C Location: ICU ICU06- Anesthesia Postop Eval I Sum Postop Eval Completion status Anesthesia document: Postop Eval 1 completed: Yes Anesthesia Postop Eval I Summary Anesthesia Postop Eval I Summary: Anesthesia Postop Eval I: Assessment Summary Airway patent Yes 04/09/25 11:12 KNOCKDOWN MAN.KRISHANLOU Spontaneous unlabored Yes 04/09/25 11:12 KNOCKDOWN MAN.ARI respirations Mental status Awake 04/09/25 11:12 KNOCKDOWN MAN.JBLOU nausea No 04/09/25 11:12 KNOCKDOWN MAN.JBLOU Vomiting No 04/09/25 11:12 KNOCKDOWN MAN.JBLOU Anesthesia Postop Eval I: Fluid Summary Crystalloid volume administer 1,600 04/09/25 11:12 KNOCKDOWN MAN.JBLOU (ml) Colloids volume administered ( ml) Blood Product volume administered (ml) Total IV fluid infused 1,600 04/09/25 11:12 KNOCKDOWN MAN.JBLOU Anesthesia Postop Eval I: Summary Notes Anesthesia Complication No 04/09/25 11:12 KNOCKDOWN MAN.JBLOU Anesthesia Complication Comment: Post-operative progress note Anesthesia: Postop Eval II Evaluation Mental status: Awake Pain Level: 1 nausea: No Vomiting: No 04/09/25 1147 Date Matt Briceno Signature: Date CC: Signed Normal [facility] Operative Reporton 5 Operative Report [facility] Medical Records Department [address] [place] [address] Operative Report 04/09/25 1047 MR#: [id number] Acct: [id number] Name: ELISABETH WILDE Rep #: [id number] : 1950 75 From: Papo Sumner MD PCP: Amanda Bahena PA-C Status:ADM IN Location: ICU ICU06 Operative Report (Standard) Operative Information Date of Procedure: 04/09/25 Pre-Operative Diagnosis: left carotid stenosis Post-Operative Diagnosis: same Surgery/Procedure Performed: left carotid endarterectomy bearing inspector: Yes Meter Tester Polyphase: Maximo [place] Tasks completed by food and beverage assistant manager: Opening, Closing, Opening closing, Hemostasis: Tie, Hemostasis: [...] beyond the area of plaque. A 10 [place] shunt was then placed first distally in [...] were removed (more content not included)... Normal [facility] STROKE Brain/Head without Co nton 04-09-2025 STROKE Brain/Head without Cont [facility] Imaging Services [address] [place] [id number] STROKE Brain/Head without Cont MR#: [id number] Acct: [id number] Name: ELISABETH WILDE Rep #: [id number] : 1950 F 75 From: Karly Vargas nd, MD PCP: Amanda Bahena PA-C Status: ADM IN Study: STROKE Brain/Head without Cont Date of Exam: 0 04/09/25 Exam# [id number] Ordering Dr: Papo Sumner MD EXAM: STROKE [...] IMPRESSION: No acute intracranial finding. Reading Location: [id number] CC: LORNA Bahena; Dr. Papo Sumner MD Induction Heating Equipment Setter: Signed Normal [facility] MR/PAT.JUANon 03-22-2025 MR/PAT.JUAN [facility] Medical Records Department [address] [place] [address] PAT - Anesthesia 03/22/25 1317 MR#: [id number] Acct: [id number] Name: ELISABETH WILDE Rep #: [id number] : 1950 74 From: Matt Ibarra MD PCP: Amanda Bahena PA-C Status:PRE IN Y Race: C Location: [facility] Pre-Assessment Diagnosis/Proposed Procedure Planned Operative Procedure(s): LEFT CAROTID ENARTECTOMY Anesthesia History Anesthesia History - watch inspector final movement: Anesthesia History - watch inspector final movement Hx Hospitalization No 03/20/25 15:02 Any Problems [...] take am of surgery PONV PONV - watch inspector final movement: PONV - watch inspector final movement Female Yes 03/20/25 15:02 HX of Motion [...] 03/01/25 11:31 Respiratory Assessment Respiratory Assessment - watch inspector final movement: Respiratory Tract Infection Hx - watch inspector final movement Hx Respiratory Tract Infection No 03/20/25 15:02 STOP Sleep Apnea STOP Sleep Apnea - watch inspector final movement: STOP Sleep Apnea - watch inspector final movement Hx Hypertension Yes 03/20/25 15:02 Hx Sleep [...] Tobacco Use History Tobacco Use History - watch inspector final movement: Tobacco Use History - watch inspector final movement Tobacco Use Smoking Status Former smoker 03/20/25 15:02 Hx Tobacco Use No 03/20/25 15:02 Years Smoking Packs Smoked per Day Smoking Cessation Date was Yes - quit smoking within 15 03/20/25 15:02 within the last 15 years years Hx Smoking Cessation Date Hx Smoking Cessation No 03/20/25 15:02 Counseling Hematologic Medial History Hematologic Hx - watch inspector final movement: Hematologic Medical Hx - medicare coordinator Hx of Blood Transfusion No 03/20/25 15:02 Hx of Transfusion in last 3 No 03/20/25 15:02 Months Date of Last Transfusion (if within last 3 months) Ever experience any problems No 03/20/25 15:02 with transfusion(s)? Specify any problems Hx of Preganancy in last 3 No 03/20/25 15:02 Months Nurse Filling Out Transfusion [facility] 03/20/25 15:02 Questions: Date: 03/20/25 03/20/25 15:02 Time: 15:13 03/20/25 15:02 Patient unable to answer at this time (ie. confused, unrespo /Reproduction History /Reproductive History - watch inspector final movement: /Reproductive Hx- watch inspector final movement Hx Now No 03/20/25 15:02 Gestational Age [...] PRN Un (more content not included)... Normal [facility] 12 Lead EKGon 03-21-2025 12 Lead EKG [facility] Cardiovascular Services [address] [place] [address] 12 Lead EKG 03/21/25 1204 MR#: [id number] Acct: [id number] Name: ELISABETH WILDE Rep #: [id number] : 1950 74 From: Pepe Sanchez MD Attending Dr: Dr. Papo Sumner MD Status: PRE I N Ordering Dr: Matt Ibarra MD Date: 03/21/25 Location: [facility] Sex: F C Admitted: Test Reason : PREOP Blood Pressure : */* mmHG Vent. Rate : 66 BPM Atrial Rate : 66 BPM P-R Int : 176 ms QRS Dur : 98 ms QT Int : 406 ms P-R-T Axes : 33 51 62 degrees QTcB Int : 425 ms Normal sinus rhythm Normal ECG Confirmed by TRAM YAO, PEPE ([id number]), film editor supervisor VEGA TOLBERT ([id number]) on 03/21/2025 1:01:45 PM Referred By: Papo Sumner Confirmed By: PEPE SANCHEZ MD 03/21/25 1301 Date Pepe Sanchez MD CC: LORNA Bahena; Dr. Matt Ibarra MD; Dr. Papo Sumner MD Signed Normal [facility] Basic Metabolic Profile (BMP )on 03-21-2025 BUN/CRE 28.5 RATIO High 10-20 [facility] Comment on above: Performed By: #### L 100.0100, L500.2500 #### [facility] [address] [place], [address] Calcium [Mass/Vol] 10.2 mg/dL Normal 7.6-11.0 [facility] Comment on above: Performed By: #### L 100.0100, L500.2500 #### [facility] [address] [place], [address] Chloride [Moles/Vol] 104 mmol/L Normal 98-108 [facility] Comment on above: Performed By: #### L 100.0100, L500.2500 #### [facility] [address] [place], [address] CO2 [Moles/Vol] 26.9 mmol/L Normal 21.0-32.0 [facility] Comment on above: Performed By: #### L 100.0100, L500.2500 #### [facility] [address] [place], [address] Creatinine [Mass/Vol] 0.83 mg/dL Normal 0.70-1.20 [facility] Comment on above: Performed By: #### L 100.0100, L500.2500 #### [facility] [address] [place], [address] GAP 11 Normal 5-15 [facility] Comment on above: Performed By: #### L 100.0100, L500.2500 #### [facility] [address] [place], [address] GFR/1.73 sq M.predicted among non-blacks MDRD (S/P/Bld) [Vol rate/Area] 75 mL/min/{1.73_m2} Normal >60 [facility] Comment on above: Result Comment: mL/m in/1.73m2 CKD-EPI Creatinine Equation (2020) Performed By: #### L 100.0100, L500.2500 #### [facility] [address] [place], [address] Glucose [Mass/Vol] 99 mg/dL Normal 70-99 [facility] Comment on above: Performed By: #### L 100.0100, L500.2500 #### [facility] [address] [place], [address] Potassium [Moles/Vol] 3.8 mmol/L Normal 3.3-5.1 [facility] Comment on above: Performed By: #### L 100.0100, L500.2500 #### [facility] [address] [place], [address] Sodium [Moles/Vol] 142 mmol/L Normal 133-145 [facility] Comment on above: Performed By: #### L 100.0100, L500.2500 #### [facility] [address] [place], [address] Urea nitrogen [Mass/Vol] 24 mg/dL High 4-19 [facility] Comment on above: Performed By: #### L 100.0100, L500.2500 #### [facility] [address] [place], [address] CBC W/Diff, Automatedon 05-2 Absolute Lymph 1.60 X10 3/uL Normal 0.83-4.51 [facility] Comment on above: Performed By: #### L 100.0100, L500.2500 #### [facility] [address] [place], [address] Absolute Neut 6.9 X10 3/uL Normal 2.0-7.7 [facility] Comment on above: Performed By: #### L 100.0100, L500.2500 #### [facility] [address] [place], [address] Basophils/100 WBC (Bld) 0.5 % Normal 0-1 [facility] Comment on above: Performed By: #### L 100.0100, L500.2500 #### [facility] [address] [place], [address] Eosinophils/100 WBC (Bld) 1.2 % Normal 0-5 [facility] Comment on above: Performed By: #### L 100.0100, L500.2500 #### [facility] [address] [place], [address] Erythrocyte distribution width (RBC) [Ratio] 15.4 % High 11.6-14.6 [facility] Comment on above: Performed By: #### L 100.0100, L500.2500 #### [facility] [address] [place], [address] Hematocrit (Bld) [Volume fraction] 44.7 % Normal 37-47 [facility] Comment on above: Performed By: #### L 100.0100, L500.2500 #### [facility] [address] [place], [address] Hemoglobin (Bld) [Mass/Vol] 14.7 g/dL Normal 12.0-15.0 [facility] Comment on above: Performed By: #### L 100.0100, L500.2500 #### [facility] [address] [place], [address] IG% 0.400 Normal 0.0-0.9 [facility] Comment on above: Result Comment: IG% - Immature Granulocytes (promyelocytes, myelocytes and metamyelocytes) > 1% indicates that a LEFT SHIFT is Present. Performed By: #### L 100.0100, L500.2500 #### [facility] [address] [place], [address] Lymphocytes/100 WBC (Bld) 17.4 % Low 19-41 [facility] Comment on above: Performed By: #### L 100.0100, L500.2500 #### [facility] [address] [place], [address] MCH (RBC) [Entitic mass] 30.4 pg Normal 27.0-32.0 [facility] Comment on above: Performed By: #### L 100.0100, L500.2500 #### [facility] [address] [place], [address] MCHC (RBC) [Mass/Vol] 32.9 g/dL Normal 32-36 [facility] Comment on above: Performed By: #### L 100.0100, L500.2500 #### [facility] [address] [place], [address] MCV (RBC) [Entitic vol] 92.4 fL Normal 81-99 [facility] Comment on above: Performed By: #### L 100.0100, L500.2500 #### [facility] [address] [place], [address] Monocytes/100 WBC (Bld) 5.5 % Normal 0-10 [facility] Comment on above: Performed By: #### L 100.0100, L500.2500 #### [facility] [address] [place], [address] Neutrophils/100 WBC (Bld) 75.0 % High 47-70 [facility] Comment on above: Performed By: #### L 100.0100, L500.2500 #### [facility] [address] [place], [address] Nucleated RBC (Bld) [#/Vol] 0 10*3/uL Normal 0-5 [facility] Comment on above: Performed By: #### L 100.0100, L500.2500 #### [facility] [address] [place], [address] Platelet mean volume (Bld) [Entitic vol] 10.6 fL Normal 6.2-12.0 [facility] Comment on above: Performed By: #### L 100.0100, L500.2500 #### [facility] [address] [place], [address] Platelets (Bld) [#/Vol] 358 10*3/uL Normal 150-450 [facility] Comment on above: Performed By: #### L 100.0100, L500.2500 #### [facility] [address] [place], [address] RBC (Bld) [#/Vol] 4.84 10*6/uL Normal 4.2-5.4 [facility] Comment on above: Performed By: #### L 100.0100, L500.2500 #### [facility] [address] [place], [address] RDW SD 52.4 fl High 35.1-43.9 [facility] Comment on above: Performed By: #### L 100.0100, L500.2500 #### [facility] [address] [place], [address] WBC (Bld) [#/Vol] 9.2 10*3/uL Normal 4.4-11.0 [facility] Comment on above: Performed By: #### L 100.0100, L500.2500 #### [facility] [address] [place], [address] Electrocardiogram reportOrde red By: Pepe Sanchez on 03-21-2025 EKG study [facility] Cardiovascular Services [address] [place] [address] 12 Lead EKG 03/21/25 1204 MR#: [id number] Acct: [id number] Name: ELISABETH WILDE Rep #:[id number] : 1950 74 From: Pepe Sanchez MD Attending Dr: Dr. Papo Sumner MD S tatus: PRE IN Ordering Dr: Matt Ibarra MD Date: 03/02 11/25 Location: [facility] Sex: F C Admitted: Test Reason : PREOP Blood Pressure : */* mmHG Vent. Rate : 66 BPM Atrial Rate : 66 BPM P-R Int : 176 ms QRS Dur : 98 ms QT Int : 406 ms P-R-T Axes : 33 51 62 degrees QTcB Int : 425 ms Normal sinus rhythm Normal ECG Confirmed by TRAM YAO, PEPE ([id number]), film editor supervisor VEGA TOLBERT ([id number]) on :01:45 PM Referred By: Papo Sumner Confirmed By: PEPE SANCHEZ MD 03/21/25 1301 Date _ Pepe Sanchez MD CC: LORNA Bahena; Dr. Matt Ibarra MD; Dr. Papo Sumner MD ~ Signed [facility] Work Phone: TSH DL <= 0.005 mIU/L QnOrde red By: Matt Ibarra on 03-21-2025 TSH Qn 0.576 uIU/mL 0.300-4.200 [facility] Thyroid Stim Hormone (TSH)on 03-21-2025 TSH 0.576 uIU/mL Normal 0.300-4.200 [facility] Comment on above: Performed By: #### L 501.9520 #### [facility] [address] [facility] [place], [address] MR/BMSGilberto 03-05-2025 MR/BMSSETH [facility] Vascular Surgery [address] [place] [address] OFFICE VISIT Date of Service: 03/05/25 MR#: [id number] Acct: [id number] Name: ELISABETH WILDE Rep #: [id number] : 1950 Provider: Dr. Papo Sumner MD Age/Sex: 74/F Location[place] [facility] Status: Signed Intake Vital Signs 02/27/25 17:54 [...] (Intermediate, Verified 03/05/25 12:46) Rash acetaminophen (From [place]) Adverse Reaction (Verified 03/01/25 10:19) Constipation hydrocodone (From [place]) Adverse Reaction (Verified 03/01/25 10:19) Constipation levofloxacin [...] type: does not use HPI HPI HPI: ELISABETH WILDE, is a 74 F who presents [...] stent, palpitations, (more content not included)... Normal [facility] CTA Head AND Neck W/ Contras ton 03-02-2025 CTA Head AND Neck W/ Contrast [facility] Imaging Services [address] [place] [address] CTA Head AND Neck W/ Contrast MR#: [id number] Acct: [id number] Name: ELISABETH WILDE Rep #: [id number] : 1950 F 74 From: Wiley Yip MD PCP: Amanda Bahena PA-C Status: REG CLI Study: CTA Head AND Neck W/ Contrast Date of Exam: Exam# [id number] Ordering Dr: Zeinab Carrillo PROCEDURE: CT HEAD [...] Posterior circulation: Patent. origin of the RIGHT SCHEDULE MAKER. RIGHT PICA and LEFT AICA are visualized. [...] 4. Additional description as above. Reading Location: [id number] CC: LORNA Bahena; KANNAN Bermudez Induction Heating Equipment Setter: Signed Normal [facility] MR/BMS.BVSon 03-01-2025 MR/BMS.BVS [facility] Vascular Surgery [address] [facility] [address] [place] [address] OFFICE VISIT Date of Service: 03/01/25 MR#: [id number] Acct: [id number] Name: CHANIELISABETH LOPEZ Rep #: [id number] : 1950 Provider: KANNAN Bermudez Age/Sex: 74/F Location: [facility] Status: Signed Intake Vital Signs 02/27/25 17:54 03/01/25 10:13 Height 5 ft 4 in Weight: 179 lb BP 175/72 H Blood Pressure Location Lt brachial Position Sitting Respiration 16 Pulse 74 Pulse Source Monitor Temp 98.0 F Temp Source Temporal Pulse Oximetry (%) 98 Oxygen Delivery Method room air Intake Visit Reasons: B/L Carotid Bruit Is patient in pain?: Yes Allergies acetaminophen (From [place]) Adverse Reaction (Verified 03/01/25 10:19) Constipation hydrocodone (From [place]) Adverse Reaction (Verified 03/01/25 10:19) Constipation levofloxacin [...] you fallen in the past year?: No [facility] Medical History (Updated 03/01/25 @ 11:17 by [...] type: does not use HPI HPI HPI: ELISABETH WILDE, is a 74 F who presents [...] prescription medications; she does follow with a spiral weaver and typically takes many supplements. She has a history of smoking, quit about 20 years ago. She is not diabetic. She reports following some episodes of chest pressure with associated diaphoresis she had a cardiac workup in 2022 through [facility] and ultimately a cardiac cath at [facility] which she reports was negative. She tried statins but had severe myalgias so could not tolerate. She does have hypertension, has been more elevated than usual but improved afte (more content not included)... Normal [facility] CV CAROTID STUDY CV CAROTID STUDY [place] [address] Patient: ELISABETH WILDE Phone#: : 1950 Age: 74 Gender: F Pt. Type: Out Account: [id number] Location: 011 Ordering: [facility] Exam Date: 02/28/202512:52 Family Phys: Charge Code: [id number] Physician: Mcpherson Order #: [id number] Dose#: PROCEDURE: CAROTID FLOW STUDY COMPARISON: None. INDICATIONS: BILATERAL BRUITS TECHNIQUE: Color duplex Doppler ultrasound and pulsed Doppler analysis were performed to evaluate the cervical carotid arteries and vertebral flow. All measurements for carotid artery narrowing or stenosis were obtained using the ipsilateral distal internal carotid artery as the reference value. JAZZ SINGER: MAURICIO BULLARD RVT RDCS PT HISTORY: Bruit [...] Report - Page 2 of 2 Patient: ELISABETH WILDE Phone#: : 1950 Age: 74 Gender: F Pt. Type: Out Account: [id number] Location: 011 Ordering: [facility] Exam Date: 02/28/2025/12:52 Family Phys: Charge Code: 787672 Physician: Mcpherson Order #: [id number] Dose#: Distal ICA: 118.04 cm/s Distal ICA [...] Tom MD on 02/28/2025 at 14:59 Normal [facility] Emergency Department Summary on 02-27-2025 Emergency Department Summary [facility] Medical Records Department [address] [place] [address] Emergency Department Summary 02/27/25 MR#: [id number] Acct: [id number] Name: ELISABETH WILDE Rep #: [id number] : 1950 74 From: Des Avila MD PCP: Amanda Bahena PA-C Status:REG ER Location: ED HPI History of Present Illness Chief Complaint: Hypertension Detail of Chief Complaint: Asymptomatic hypertension Informant: patient and spouse/S.O. Onset/Context/Timing Onset: Days (Started Wednesday, February 25) Context: Sudden Onset Timing: Continuous [...] similar symptoms: Yes Recent Illness/[facility]atio n[facility] Medical History (Updated 02/27/25 @ 19:38 [...] Reaction Status Date / Time acetaminophen (From [place]) AdvReac Constipatio Verified 02/27/25 17:59 n hydrocodone (From [place]) AdvReac Constipatio Verified 02/27/25 17:59 n levofloxacin [...] exertion, orthop (more content not included)... Normal [facility] Pulmonary Visit Reporton Pulmonary Visit Report [facility] [place] [address] [place] [address] OFFICE VISIT Date of Service: 02/13/25 MR#: [id number] Acct: [id number] Name: ELISABETH WILDE Rep #: [id number] : 1950 Provider: AKASH Rogel Age/Sex: 74/F Location[place] [facility] Status: Signed Assessment and Plan Assessment and [...] 3RF Plan Details Follow Up: 1 Year ([facility] ) HPI 1 Y FU Chief [...] yearly Accompanied by: Self Allergies acetaminophen (From [place]) Adverse Reaction (Verified 02/13/25 14:14) Constipation hydrocodone (From [place]) Adverse Reaction (Verified 02/13/25 14:14) Constipation levofloxacin (From [place]) Adverse Reaction (Verified 02/13/25 14:14) GI upset prednisone Adverse Reaction (Verified 02/13/25 14:14) Other Medications ???Medication ???Instructions ???Recorded ???Confirmed ???Type hydrochlorothiazide 25 mg tablet 25 mg PO DAILY BP 08/02/17 04//2 5 History ipratropium 0.5 mg-albuterol 3 mg [...] 02/13/25 Rx (more content not included)... Normal [facility] CMP with eGFRon 01-01-2025 AGE 74 years Normal [facility] Comment on above: Performed By: #### 2 05908 #### [facility],[address] [place], [place] [address] Albumin [Mass/Vol] 3.7 g/dL Normal 3.4 - 5.0 [facility] Comment on above: Performed By: #### 2 76603 #### [facility],[address] [place] [address] Albumin/Globulin [Mass ratio] 1.1 {ratio} Normal 0.9 - 1.6 [facility] Comment on above: Performed By: #### 2 75781 #### [facility],[address] [place] [address] ALK PHOS 94 U/L Normal 46 - 116 [facility] Comment on above: Performed By: #### 2 57361 #### [facility],[address] [place] [address] ALT [Catalytic activity/Vol] 38 U/L Normal 16 - 63 [facility] Comment on above: Performed By: #### 2 02135 #### [facility],[address] [place] [address]409 Anion gap [Moles/Vol] 13 mmol/L Normal 10 - 20 [facility] Comment on above: Performed By: #### 2 71525 #### [facility],[address] [place] [address] AST [Catalytic activity/Vol] 27 U/L Normal 13 - 39 [facility] Comment on above: Performed By: #### 2 88361 #### [facility],[address] [place] [address] B/C RATIO 22 ratio Normal 0 - 30 [facility] Comment on above: Performed By: #### 2 50205 #### [facility],[address] [place] [address] Bilirubin [Mass/Vol] 0.4 mg/dL Normal 0.2 - 1.0 [facility] Comment on above: Performed By: #### 2 97395 #### [facility],[address] [place] [address] Calcium [Mass/Vol] 9.5 mg/dL Normal 8.5 - 10.1 [facility] Comment on above: Performed By: #### 2 65821 #### [facility],[address] [place] [address]14 Chloride [Moles/Vol] 104 mmol/L Normal 98 - 107 [facility] Comment on above: Performed By: #### 2 62106 #### [facility],[address] [place] [address] CMP with eGFR Normal [facility] Comment on above: Result Comment: COMP REHENSIVE METABOLIC PANEL Performed By: #### 2 32512 #### [facility],[address] [place] [address]407 CO2 [Moles/Vol] 28.1 mmol/L Normal 21.0 - 32.0 [facility] Comment on above: Performed By: #### 2 74432 #### [address] [address] Creatinine [Mass/Vol] 0.64 mg/dL Normal 0.55 - 1.02 [facility] Comment on above: Performed By: #### 2 95850 #### [facility],[address] [place] [address] GFR/1.73 sq M.predicted among non-blacks MDRD (S/P/Bld) [Vol rate/Area] mL/min/{1.73_m2} Normal 60 - 999 [facility] Comment on above: Performed By: #### 2 05304 #### [place] [address] Result Comment: ACCO RDING TO THE NATIONAL KIDNEY DISEASE EDUCATION PROGRAM(NKDE), A NORMAL eGFR IS A VALUE GREATER THAN OR EQUAL TO 60 ML/MIN/1.73 SQ METERS. CHRONIC KIDNEY DISEASE: <60mL/MIN/1.73 SQ METERS KIDNEY FAILURE: <15mL/MIN/1.73 SQ METERS THIS TEST SHOULD ONLY BE USED FOR PATIENTS 18 YEARS OF AGE AND OLDER. Globulin (S) [Mass/Vol] 3.3 g/dL Normal 1.5 - 3.8 [facility] Comment on above: Performed By: #### 2 00598 #### [address] [address] Glucose [Mass/Vol] 95 mg/dL Normal 74 - 106 [facility] Comment on above: Performed By: #### 2 49066 #### [address] [address] Potassium [Moles/Vol] 3.6 mmol/L Normal 3.5 - 5.1 [facility] Comment on above: Performed By: #### 2 91790 #### [address] [address] Protein [Mass/Vol] 7.0 g/dL Normal 6.4 - 8.2 [facility] Comment on above: Performed By: #### 2 22656 #### [facility],[address] [place] [address] Sodium [Moles/Vol] 141 mmol/L Normal 136 - 145 [facility] Comment on above: Performed By: #### 2 51773 #### [facility],[address] [place] [address] Urea nitrogen [Mass/Vol] 14 mg/dL Normal 7 - 18 [facility] Comment on above: Performed By: #### 2 36281 #### [facility],[address] [place] [address] LIPID PROFILEon 01-01-2025 Cholesterol [Mass/Vol] 258 mg/dL High 0 - 240 [facility] Comment on above: Performed By: #### 2 56729 #### [facility],[address] [place] [address] Cholesterol in HDL [Mass/Vol] 78 mg/dL High 40 - 60 [facility] Comment on above: Performed By: #### 2 42241 #### [facility],[address] [place] [address] Cholesterol in LDL [Mass/Vol] 167 mg/dL High 0 - 129 [facility] Comment on above: Performed By: #### 2 56855 #### [facility],[address] [place] [address] Cholesterol.total/Shauna sterol in HDL [Mass ratio] 3.3 {ratio} Normal 0.0 - 5.0 [facility] Comment on above: Performed By: #### 2 82217 #### [facility],[address] [place] [address] Lipid 1996 panel Normal [facility] Comment on above: Result Comment: LIPI D PROFILE Performed By: #### 2 30292 #### [facility],[address] [place] [address] Triglyceride [Mass/Vol] 67 mg/dL Normal 0 - 150 J [facility] Comment on above: Performed By: #### 2 44418 #### [facility],[address] [place] [address]31 TSHon 01-01-2025 TSH Qn 2.59 m[IU]/L Normal 0.35 - 3.74 [facility] Comment on above: Performed By: #### 2 10240 #### [facility],[address] [place] [address] LABORATORYOrdered By: Freda Diaz on 05-06-2023 INR Coag (PPP) [Relative time] 0.9 {INR} Invalid Interpretation Code AH Auto Coag SS PT Coag (PPP) [Time] 10.5 s Invalid Interpretation Code 9.0 - 14.8 seconds AH Auto Coag SS PROon 05-06-2023 INR Coag (PPP) [Relative time] 0.9 {INR} Normal [facility] ([place]) Comment on above: Order Comment: blue top hemolyzed called Sharon Álvarez at 05/06/2023 07:16:24 EDT-mlm Result Comment: The [employer] (CHEST, 1992, 102:312S-25S) recommended therapeutic range for oral anticoagulant therapy is: LOW RISK: Prophylaxis of venous thrombosis INR: 2.0-3.0 Treatment of pulmonary embolism 2.0-3.0 Prevention of systemic embolism 2.0-3.0 HIGH RISK: Mechanical prosthetic valves 2.5-3.5 Performed By: #### P RO #### [place] [address] PT Coag (PPP) [Time] 10.5 s Normal 9.0-14.8 [facility] ([place]) Comment on above: Order Comment: blue top hemolyzed called Sharon Álvarez at 05/06/2023 07:16:24 EDT-mlm Result Comment: Effe ctive 05/15/08, Protime results may be affected by some antibiotics (i.e. Ciprofloxacin, Azithromycin, Bactrim) which may potentiate the action of oral anticoagulants, with further increase in Protime/INR. Performed By: #### P RO #### [address] [address] FECAL GLOBIN BY IMMUNOCHEM. (MEDICARE)on 09-11-2020 FECAL GLOBIN BY IMMUNOCHEM. (MEDICARE) SEE NOTE Abnormal [facility] Comment on above: Order Comment: FASTI NG: UNKNOWN Result Comment: FECAL GLOBIN BY IMMUNOCHEM. (MEDICARE) Micro Number: [id number] Test Status: Final Specimen Source: INSURE (TM) FOBT TEST CARD Specimen Quality: Adequate Fecal Globin: Detected Performed By: #### 1 1293 #### [facility]-[address], [address] [place] [address] Wreath Maker: Michael Lyn MD COMPREHENSIVE METABOLIC PANE [facility] 09-05-2020 Albumin [Mass/Vol] 4.1 g/dL Normal 3.6-5.1 [facility] Comment on above: Performed By: #### 8 99, 30063, 7600 #### [facility]-[address], [address] [place] [address] Wreath Maker: Michael Lyn MD Albumin/Globulin [Mass ratio] 1.7 (calc) Normal 1.0-2.5 [facility] Comment on above: Performed By: #### 8 99, 79129, 7600 #### [facility]-[address], [address] [place] [address] Wreath Maker: Michael Lyn MD ALP [Catalytic activity/Vol] 87 U/L Normal 37-153 [facility] Comment on above: Performed By: #### 8 99, 46844, 7600 #### [facility]-[address], [address] [place], [place] [address] Wreath Maker: Michael Lyn MD ALT [Catalytic activity/Vol] 14 U/L Normal 6-29 [facility] Comment on above: Performed By: #### 8 99, 01251, 7600 #### [facility]-[address], [address] [place] [address] Wreath Maker: Michael Lyn MD AST [Catalytic activity/Vol] 13 U/L Normal 10-35 [facility] Comment on above: Performed By: #### 8 , , 7600 #### [facility]-[place] [address] [address] , [address] [place] [address] Wreath Maker: Michael Lyn MD Bilirubin [Mass/Vol] 0.4 mg/dL Normal 0.2-1.2 [facility] Comment on above: Performed By: #### 8 , , 7600 #### [facility]-[place] [address] [address] , [address] [place] [address] Wreath Maker: Michael Lyn MD Calcium [Mass/Vol] 10.0 mg/dL Normal 8.6-10.4 [facility] Comment on above: Performed By: #### 8 , 73246, 0 #### [facility]-[address] , [address] [place] [address] Wreath Maker: Michael Lyn MD Chloride [Moles/Vol] 100 mmol/L Normal 98-110 [facility] Comment on above: Performed By: #### 8 , , 7600 #### [facility] [address] [address] , [address] [place] [address] Wreath Maker: Michael Lyn MD CO2 [Moles/Vol] 27 mmol/L Normal 20-32 [facility] Comment on above: Performed By: #### 8 , 03324, 7600 #### [facility]-[address], [address] [place] [address] Wreath Maker: Michael Lyn MD Creatinine [Mass/Vol] 0.72 mg/dL Normal 0.50-0.99 [facility] Comment on above: Result Comment: For patients >49 years of age, the reference limit for Creatinine is approximately 13% higher for people identified as -Mongolian. Performed By: #### 8 , 49573, 7600 #### [facility]-[place] [address] [address] , [address] [place] [address] Wreath Maker: Michael Lyn MD eGFR NON-AFR. MALDIVIAN 86 mL/min/1.73m2 Normal > OR = 60 [facility] Comment on above: Performed By: #### 8 , 72584, 7599 #### [facility]-[address], [address] [place] [address] Wreath Maker: Michael Lyn MD GFR/1.73 sq M predicted among blacks MDRD (S/P/Bld) [Vol rate/Area] 100 mL/min/{1.73_m2} Normal > OR = 60 [facility] Comment on above: Performed By: #### 8 , , 0 #### [facility]-[address], [address] [place] [address] Wreath Maker: Michael Lyn MD Globulin (S) [Mass/Vol] 2.4 g/dL (calc) Normal 1.9-3.7 [facility] Comment on above: Performed By: #### 8 , , 0 #### [facility]-[address], [address] [place] [address] Wreath Maker: Michael Lyn MD Glucose [Mass/Vol] 84 mg/dL Normal 65-99 [facility] Comment on above: Result Comment: Fasting reference interval Performed By: #### 8 , , 0 #### [facility]-[address], [address] [place] [address] Wreath Maker: Michael Lyn MD Potassium [Moles/Vol] 4.0 mmol/L Normal 3.5-5.3 [facility] Comment on above: Performed By: #### 8 , , 7599 #### [facility]-[address], [address] [place] [address] Wreath Maker: Michael Lyn MD Protein [Mass/Vol] 6.5 g/dL Normal 6.1-8.1 [facility] Comment on above: Performed By: #### 8 , , 7599 #### [facility]-[address], [address] [place] [address] Wreath Maker: Michael Lyn MD Sodium [Moles/Vol] 140 mmol/L Normal 135-146 [facility] Comment on above: Performed By: #### 8 , , 0 #### [facility]-[address], [address] [place] [address] Wreath Maker: Michael Lyn MD Urea nitrogen [Mass/Vol] 16 mg/dL Normal 7-25 [facility] Comment on above: Performed By: #### 8 99, 72788, 7600 #### [facility]-[address], [address] [place] [address] Wreath Maker: Michael Lyn MD Urea nitrogen/Creatinine [Mass ratio] NOT APPLICABLE Normal 6-22 [facility] Comment on above: Performed By: #### 8 , 13975, 7600 #### [facility]-[address], [address] [place] [address] Wreath Maker: Michael Lyn MD LIPID PANEL, STANDARD 11-0 Cholesterol [Mass/Vol] 252 mg/dL High <200 [facility] Comment on above: Performed By: #### 8 , 80525, 7600 #### [facility]-[address], [address] [place] [address] Wreath Maker: Michael Lyn MD Cholesterol in HDL [Mass/Vol] 68 mg/dL Normal > OR = 50 [facility] Comment on above: Performed By: #### 8 99, 33772, 7600 #### [facility]-[address], [address] [place] [address] Wreath Maker: Michael Lyn MD Cholesterol in LDL [Mass/Vol] [...] LDL-C. Sky ACOSTA et al. MONA. 2013;310(19): 7881-4487 (http://education.[employer]/faq/UOF784) Performed By: #### 8 99, 36435, 7600 #### [facility]-[address], [address] [place] [address] Wreath Maker: Michael Lyn MD Cholesterol.total/Shauna sterol in HDL [Mass ratio] 3.7 (calc) Normal <5.0 [facility] Comment on above: Performed By: #### 8 , 07577, 7600 #### [facility]-[address], [address] [place] [address] Wreath Maker: Michael Lyn MD NON HDL CHOLESTEROL 184 mg/dL (calc) High <130 [facility] Comment on above: Result Comment: For patients with diabetes plus 1 major ASCVD risk factor, treating to a non-HDL-C goal of <100 mg/dL (LDL-C of <70 mg/dL) is considered a therapeutic option. Performed By: #### 8 , , 0 #### [facility], [address] [place] [address] Wreath Maker: Michael Lyn MD Triglyceride [Mass/Vol] 64 mg/dL Normal <150 [facility] Comment on above: Performed By: #### 8 , , 0 #### [facility], [address] [place] [address] Wreath Maker: Michael Lyn MD TSHon 09-05-2020 TSH Qn 1.32 m[IU]/L Normal 0.40-4.50 [facility] Comment on above: Performed By: #### 8 , [id number], 0 #### [facility], [address] [place] [address] Wreath Maker: Michael Lyn MD Office Visit: UC: [email or web address] Documentation of current medications (procedure) Done Invalid Interpretation Code [facility] Work Phone: Fall risk assessment No Invalid Interpretation Code [facility] Work Phone: Tobacco smoking status NHIS Never Invalid Interpretation Code [facility] Work Phone: Tobacco use [facility] Never smoker Invalid Interpretation Code [facility] Work Phone: Vital Signs Date Time Vital Sign Value Performing Clinician Facility 04-24-2025 13:26-0400 Body temperature 98.2 [degF] Amanda Arnold PA-C Work Phone: [facility] 04-24-2025 13:26-0400 Body weight 79.83 kg Amanda Arnold PA-C Work Phone: [facility] 04-24-2025 13:26-0400 Diastolic blood pressure 65 mm[Hg] Amanda Arnold PA-C Work Phone: [facility] 04-24-2025 13:26-0400 Heart rate 62 /min Amanda Arnold PA-C Work Phone: [facility] 04-24-2025 13:26-0400 Respiratory rate 14 /min Amanda Arnold PA-C Work Phone: [facility] 04-24-2025 13:26-0400 SaO2% (BldA) [Mass fraction] 98 % Amanda Arnold PA-C Work Phone: [facility] 04-24-2025 13:26-0400 Systolic blood pressure 158 mm[Hg] Amanda Arnold PA-C Work Phone: [facility] 04-13-2025 10:00-0400 Diastolic blood pressure 56 mm[Hg] Amanda Arnold PA-C Work Phone: [facility] 04-13-2025 10:00-0400 Heart rate 74 /min Amanda Arnold PA-C Work Phone: [facility] 04-13-2025 10:00-0400 Respiratory rate 22 /min Amanda Arnold PA-C Work Phone: [facility] 04-13-2025 10:00-0400 SaO2% (BldA) [Mass fraction] 92 % Amanda Arnold PA-C Work Phone: [facility] 04-13-2025 10:00-0400 Systolic blood pressure 137 mm[Hg] Amanda Arnold PA-C Work Phone: [facility] 04-13-2025 08:00-0400 Body temperature 97.8 [degF] Amanda [employer] PA-C Work Phone: [facility] 04-12-2025 16:00-0400 Inhaled oxygen concentration 40 % Amanda [employer] PA-C Work Phone: [facility] 04-12-2025 14:00-0400 Inhaled oxygen flow rate 2 L/min [facility] [employer] PA-C Work Phone: [facility] 04-12-2025 04:53-0400 Body mass index (BMI) [Ratio] 33 kg/m2 [facility] [employer] PA-C Work Phone: [facility] 04-12-2025 04:53-0400 Body weight 84.5 kg Amanda [employer] PA-C Work Phone: [facility] 04-10-2025 09:45-0400 Body height 160.02 cm Amanda [employer] PA-C Work Phone: [facility] 03-05-2025 12:36-0400 Body temperature 98.6 [degF] Amanda [employer] PA-C Work Phone: [facility] 03-05-2025 12:36-0400 Body weight 81.19 kg Amanda [employer] PA-C Work Phone: [facility] 03-05-2025 12:36-0400 Diastolic blood pressure 98 mm[Hg] Amanda [employer] PA-C Work Phone: [facility] 03-05-2025 12:36-0400 Heart rate 77 /min [employer] PA-C Work Phone: [facility] 03-05-2025 12:36-0400 Inhaled oxygen flow rate 97 L/min [employer] PA-C Work Phone: [facility] 03-05-2025 12:36-0400 Respiratory rate 16 /min [employer] PA-C Work Phone: [facility] 03-05-2025 12:36-0400 SaO2% (BldA) [Mass fraction] 97 % Amanda Arnold PA-C Work Phone: [facility] 03-05-2025 12:36-0400 Systolic blood pressure 170 mm[Hg] Amanda Arnold PA-C Work Phone: [facility] 03-01-2025 11:31-0400 Body height 162.56 cm [facility] [employer] PA-C Work Phone: [facility] 03-01-2025 10:13-0400 Body temperature 98 [degF] Amanda Arnold PA-C Work Phone: [facility] 03-01-2025 10:13-0400 Body weight 81.19 kg [facility] [employer] PA-C Work Phone: [facility] 03-01-2025 10:13-0400 Diastolic blood pressure 72 mm[Hg] Amanda Arnold PA-C Work Phone: [facility] 03-01-2025 10:13-0400 Heart rate 74 /min Amanda Arnold PA-C Work Phone: [facility] 03-01-2025 10:13-0400 Respiratory rate 16 /min Amanda Arnold PA-C Work Phone: [facility] 03-01-2025 10:13-0400 SaO2% (BldA) [Mass fraction] 98 % Amanda Arnold PA-C Work Phone: [facility] 03-01-2025 10:13-0400 Systolic blood pressure 175 mm[Hg] Amanda Arnold PA-C Work Phone: [facility] 02-27-2025 19:49-0400 Body temperature 98 [degF] [facility] [employer] PA-C Work Phone: [facility] 02-27-2025 19:49-0400 Diastolic blood pressure 87 mm[Hg] [employer] PA-C Work Phone: [facility] 02-27-2025 19:49-0400 Heart rate 84 /min [employer] PA-C Work Phone: [facility] 02-27-2025 19:49-0400 Respiratory rate 15 /min [employer] PA-C Work Phone: [facility] 02-27-2025 19:49-0400 SaO2% (BldA) [Mass fraction] 97 % [employer] PA-C Work Phone: [facility] 02-27-2025 19:49-0400 Systolic blood pressure 202 mm[Hg] [facility] [employer] PA-C Work Phone: [facility] 02-27-2025 17:54-0400 Body height 162.56 cm [employer] PA-C Work Phone: [facility] 02-27-2025 17:54-0400 Body mass index (BMI) [Ratio] 31.1 kg/m2 [employer] PA-C Work Phone: [facility] 02-27-2025 17:54-0400 Body weight 82.28 kg [employer] PA-C Work Phone: [facility] 02-13-2025 08:12-0400 Body mass index (BMI) [Ratio] 31 kg/m2 [facility] [employer] PA-C Work Phone: [facility] 02-13-2025 08:12-0400 Body temperature 97.5 [degF] [employer] PA-C Work Phone: [facility] 02-13-2025 08:12-0400 Body weight 82.1 kg [facility] [employer] PA-C Work Phone: [facility] 02-13-2025 08:12-0400 Diastolic blood pressure 81 mm[Hg] [employer] PA-C Work Phone: [facility] 02-13-2025 08:12-0400 Heart rate 76 /min [facility] PA-C Work Phone: [facility] 02-13-2025 08:12-0400 Respiratory rate 20 /min [facility] PA-C Work Phone: [facility] 02-13-2025 08:12-0400 SaO2% (BldA) [Mass fraction] 97 % [facility] PA-C Work Phone: [facility] 02-13-2025 08:12-0400 Systolic blood pressure 214 mm[Hg] [facility] PA-C Work Phone: [facility] 05-06-2023 10:27-0400 Diastolic Blood Pressure Non-Invasive [address] WILLIAM SCOTT MD [facility] 05-06-2023 10:27-0400 Heart rate 67 /min DR WILLIAM SCOTT MD [address] [place] [address] 05-06-2023 10:27-0400 Respiratory rate 19 /min DR WILLIAM SCOTT MD [address] [place] [address] 05-06-2023 10:27-0400 Systolic Blood Pressure Non-Invasive [address] WILLIAM SCOTT MD [facility] 05-06-2023 10:12-0400 Body temperature 98.24 [degF] DR WILLIAM SCOTT MD [facility] 05-06-2023 10:12-0400 Diastolic Blood Pressure Non-Invasive [address] WILLIAM SCOTT MD [facility] 05-06-2023 10:12-0400 Heart rate 67 /min DR WILLIAM SCOTT MD [facility] 05-06-2023 10:12-0400 Respiratory rate 18 /min DR WILLIAM SCOTT MD [facility] 05-06-2023 10:12-0400 Systolic Blood Pressure Non-Invasive [address] WILLIAM SCOTT MD [facility] 05-06-2023 09:58-0400 Diastolic Blood Pressure Non-Invasive [address] WILLIAM SCOTT MD [facility] 05-06-2023 09:58-0400 Heart rate 72 /min DR WILLIAM SCOTT MD [address] [place] [address] 05-06-2023 09:58-0400 Respiratory rate 16 /min DR WILLIAM SCOTT MD [address] [place] [address] 05-06-2023 09:58-0400 Systolic Blood Pressure Non-Invasive [address] WILLIAM SCOTT MD [address] [place] [address] 05-06-2023 06:10-0400 Blood Pressure Cuff Size DR WILLIAM SCOTT MD [address] [place] [address] 05-06-2023 06:10-[address] WILLIAM SCOTT MD [address] [place] [address] 05-06-2023 06:10-[address] WILLIAM Fields [address] [place] [address] 05-06-2023 06:10-0400 Body height 162.[address] WILLIAM SCOTT MD [facility] 05-06-2023 06:10-0400 Body temperature 98.06 [degF] DR WILLIAM SCOTT MD [facility] 05-06-2023 06:10-0400 Body weight 87.[address] WILLIAM SCOTT MD [facility] 05-06-2023 06:10-0400 Body weight 33.21 kg/m2 DR WILLIAM SCOTT MD [facility] 07-27-2017 11:57-0400 BMI (Body Mass Index) 31.75 kg/m2 Freda Stewart LPN [facility] Work Phone: 07-27-2017 11:57-0400 Body Temperature 98.8 [degF] Freda Stewart LPN [facility] Work Phone: 07-27-2017 11:57-0400 BP Diastolic 86 mm[Hg] Freda Stewart LPN [facility] Work Phone: 07-27-2017 11:57-0400 BP Systolic 132 mm[Hg] Freda Stewart LPN [facility] Work Phone: 07-27-2017 11:57-0400 Height 162.56 cm Freda Stewart LPN [facility] Work Phone: 07-27-2017 11:57-0400 Pulse (Heart Rate) 113 /min Freda Stewart LPN [facility] Work Phone: 07-27-2017 11:57-0400 Respiratory Rate 14 /min Freda Stewart LPN [facility] Work Phone: 07-27-2017 11:57-0400 Weight 83.92 kg Freda Stewart LPN [facility] Work Phone: 04-08-2016 15:10-0400 BSA (Body Surface Area) 1.91 m2 Freda Stewart LPN [facility] Work Phone: Encounters Encounter Date Encounter Type Care Provider Facility Start: 05-29-2025 ambulatory [facility] Facility:[facility] Start: 04-26-2025 End: 04-26-2025 ambulatory [facility] Start: 04-26-2025 Encounter for other preprocedural examination [facility] Start: 04-24-2025 End: 04-24-2025 [facility] Start: 04-24-2025 End: 04-24-2025 ambulatory [facility] KANNAN-C Work Phone: [facility] Work Phone: Start: 04-17-2025 [facility] Start: 04-13-2025 Non-patient / Non-visit Dr. Kirby gomez [facility] Work Phone: Start: 04-12-2025 Non-patient / Non-visit Dr. Kirby Guerrero [facility] Work Phone: Start: 04-12-2025 Non-patient / Non-visit Zeinab BRUNNER [facility] Start: 04-11-2025 Non-patient / Non-visit Dr. Papo vizcarra MD -[facility] Start: 04-10-2025 Non-patient / Non-visit Dr. Kirby gomez [facility] Work Phone: Start: 04-10-2025 ambulatory [facility] Facil ity:[facility] Start: 04-10-2025 Non-patient / Non-visit Dr. Lisa lozano MD -[facility] Start: 04-10-2025 Non-patient / Non-visit Zeinab [facility] Start: 04-09-2025 Non-patient / Non-visit Dr. Bailey [facility] Work Phone: Start: 04-09-2025 ambulatory Papo Sumner Facility:[facility] Start: 04-09-2025 End: 04-13-2025 Evaluation and management of inpatient Dr. Papo Sumner MD -Intensive Care Unit Work Phone: Start: 04-09-2025 Non-patient / Non-visit Dr. Papo vizcarra MD -[facility] Start: 04-09-2025 ambulatory Papo Sumner Facility:[facility] Start: 03-21-2025 End: 03-21-2025 ambulatory [facility] Facility:[facility] Start: 03-21-2025 End: 03-21-2025 Non-patient / Non-visit Dr. Pepe Sanchez MD -[facility] Work Phone: Start: 03-05-2025 End: 03-05-[address] Papo Sumner MD -[facility] Work Phone: Start: 03-05-2025 End: 03-05-2025 ambulatory Amanda Arnold PA Facility:[facility] Start: 03-02-2025 End: 03-02-2025 ambulatory [facility] PA-C Work Phone: [facility] Work Phone: Start: 03-02-2025 End: 03-02-2025 Patient encounter procedure Zeinab BRUNNER -[facility] Work Phone: Start: 03-01-2025 End: 03-01-2025 Patient encounter procedure Zeinab BRUNNER -[facility] Work Phone: Start: 03-01-2025 End: 03-02-2025 ambulatory Zeinab Carrillo Facility:[facility] Start: 02-28-2025 End: 02-28-2025 ambulatory [facility] Start: 02-27-2025 End: 02-27-2025 Emergency department patient visit Amanda Bahena PA-C Work Phone: -Emergency Department Work Phone: Start: 02-26-2025 End: 02-26-2025 ambulatory [facility] Start: 02-13-2025 End: 02-13-2025 Patient encounter procedure Tatiana RAMIREZC -[facility] Work Phone: Start: 02-13-2025 End: 02-13-2025 ambulatory Amanda Arnold PA Facility:[facility] Start: 01-01-2025 End: 01-01-2025 ambulatory [facility] Start: 05-06-2023 End: 05-06-[address] WILLIAM SCOTT MD Facility:[facility] Start: 05-06-2023 End: 05-06-[address] WILLIAM SCOTT MD [facility] Start: 03-20-2023 End: 03-20-2023 ambulatory [facility] Work Phone: Start: 03-20-2023 End: 03-20-2023 Patient encounter procedure [facility]-Radiology, [facility] Procedures Date Procedure Procedure Detail Performing Clinician Start: 04-11-2025 CT of head without contrast [employer] PA-C Work Phone: Start: 04-10-2025 Estimated creatinine clearance [employer] PA-C Work Phone: Start: 04-09-2025 CT angiography of ne ck vessels [employer] PA-C Work Phone: Start: 04-09-2025 CT of head without contrast [employer] PA-C Work Phone: Start: 04-09-2025 Coagulation time, activated [employer] PA-C Work Phone: Start: 04-09-2025 Carotid endarterectomy [employer] PA-C Work Phone: Start: 03-02-2025 CT angiography of he ad and neck [employer] PA-C Work Phone: Start: 03-20-2023 Plain x-ray [...] Treatment Date Care Activity Detail Author Start: 04-13-2025 Patient discharge [facility] Start: 04-12-2025 [facility] Start: 04-11-2025 End: 04-12-2025 [facility] Start: 04-10-2025 Consultation [facility] Start: 04-09-2025 Notification of physician [facility] Start: 04-09-2025 [facility] Start: 04-09-2025 Following clinical p athway protocol [facility] Start: 04-09-2025 Ambulation without limitation [facility] Start: 04-09-2025 Assessment of risk o f venous thromboembolism [facility] Start: 04-09-2025 Catheterization of vein [facility] Start: 04-09-2025 Continuous pulse oximetry [facility] Start: 04-09-2025 Deep breathing and c oughing exercises [facility] Start: 04-09-2025 Elevation of head of bed [facility] Start: 04-09-2025 Insertion of cathete r into peripheral vein [facility] Start: 04-09-2025 Measuring intake and output [facility] Start: 04-09-2025 Notification of physician [facility] Start: 04-09-2025 Oxygen therapy [facility] Start: 04-09-2025 Patient referral to dietitian [facility] Start: 04-09-2025 Providing care accor ding to standard [facility] Start: 04-09-2025 Provision of activity privileges [facility] Start: 04-09-2025 Referral to occupati onal therapist [facility] Start: 04-09-2025 Referral to service [facility] Start: 04-09-2025 Vital signs measurements [facility] Start: 04-09-2025 [facility] Start: 04-09-2025 [facility] Start: 04-09-2025 Admission procedure [facility] Start: 04-09-2025 Inhalation therapy procedure [facility] Start: 02-27-2025 [facility] Start: 07-27-2017 End: 07-27-2017 Appointment Appointment [facility] Work Phone: Electrocardiographic procedure [facility] Patient Education [facility] Work Phone: Patient referral [facility] Work Phone: Payers Date Payer Category Payer Self-pay [id number] 2024 Medicare [id number] 2023 Unknown [id number] 2017 Medicare [id number] 1950 Unknown [id number] 2.16.8 40.1.905734.3.579.2.627 1950 Unknown [id number] 2.16.8 40.1.236864.3.579.2.651 1950 Unknown [id number] 2.16.8 40.1.496909.3.579.2.651 1950 Unknown [id number] 2.16.8 40.1.362847.3.579.2.651 1950 Unknown [id number] 2.16.8 40.1.324487.3.579.2.651 1950 Unknown [id number] 2.16.8 40.1.805971.3.579.2.651 Unknown [id number] Unknown [id number] 2.16.8 40.1.136621.3.579.2.462 Unknown [id number] 2.16.8 40.1.623695.3.579.2.462 Unknown [id number] 2.16.8 40.1.810088.3.579.2.462 Unknown [id number] 2.16.8 40.1.909709.3.579.2.462 Unknown [id number] 2.16.8 40.1.692578.3.579.2.462 Unknown [id number] 2.16.8 40.1.268841.3.579.2.462 Unknown [id number] 2.16.8 40.1.417481.3.579.2.462 Unknown [id number] 2.16.8 40.1.289742.3.579.2.462 Unknown [id number] 2.16.8 40.1.709617.3.579.2.462 Unknown [id number] 2.16.8 40.1.408896.3.579.2.462 Unknown [id number] 2.16.8 40.1.588589.3.579.2.462 Unknown [id number] 2.16.8 40.1.979797.3.579.2.462 Unknown [id number] 2.16.8 40.1.989531.3.579.2.462 Unknown [id number] 2.16.8 40.1.943255.3.579.2.462 Unknown [id number] 2.16.8 40.1.200484.3.579.2.462 Unknown [id number] 2.16.8 40.1.925140.3.579.2.462 Unknown [id number] 2.16.8 40.1.119144.3.579.2.462 Unknown [id number] 2.16.8 40.1.892075.3.579.2.462 Unknown [id number] 2.16.8 40.1.386294.3.579.2.462 Unknown [id number] 2.16.8 40.1.010469.3.579.2.462 Unknown [id number] 2.16.8 40.1.823874.3.579.2.462 Social History Date Type Detail Facility Start: 07-22-2022 Tobacco smoking status NHIS Unknown if ever smoked [facility] Start: 03-20-2019 None [facility] Start: 08-03-2020 Spouse/ Signif icant Other [facility] Start: 1950 Sex Assigned At Female [facility] Start: 05-06-2023 End: 04-09-2025 Tobacco smoking status Ex-smoker (finding) [facility] Comment on above: stopped 25 years ago Sex Assigned At Sex [facility] Start: 02-27-2025 Sex Female (finding) [facility] NEGATED: Highlighted row Not [facility] Medical Equipment Procedure Code Equipment Code Equipment Origin al Text Equipment Identifier Dates Endarterectomy, carotid Cardiovascular patch, animal-derived ()[id number] FDA Start: 04-09-2025 Endarterectomy, carotid Collagen haemostatic agent, non-antimicrobial ()[id number] FDA Start: 04-09-2025 Endarterectomy, carotid Ligation clip, metallic ()[id number] FDA Start: 04-09-2025 Endarterectomy, carotid Ligation clip, metallic ()[id number] FDA Start: 04-09-2025 Endarterectomy, carotid Ligation clip, metallic ()[id number] FDA Start: 04-09-2025 Endarterectomy, carotid Ligation clip, metallic ()[id number] FDA Start: 04-09-2025 STENT,URETERAL P IGTAIL 6FRx26 FDA Start: 07-26-2020 STENT,URETERAL P IGTAIL 6FRx26 FDA Start: 07-26-2020 STENT,URETERAL P IGTAIL 6FRx26 FDA Start: 07-26-2020 STENT,URETERAL P IGTAIL 6FRx26 FDA Start: 07-26-2020 STENT,URETERAL P IGTAIL 6FRx26 FDA Start: 07-26-2020 Goals Date Patient Goal Desired Activity /State Functional Status Date Assessment Result Facility 04-13-2025 Functional status Ambulates [facility] Work Phone: 05-06-2023 Functional Status Ambulating in head, Ambulating in room, Awake [facility] 05-06-2023 Functional Status [facility] 05-06-2023 Functional Status Room located n [facility], Room check performed [facility] Mental Status Date Assessment Result Facility 04-13-2025 Cognitive function Voice/Name [facility] Work Phone: 02-27-2025 Cognitive function Level Of Cons ciousness Awake;Alert;Appropriate [facility] Work Phone: 05-06-2023 Mental Status Orientation Oriented x 4 [facility] 05-06-2023 Mental Status [facility] Clinical Notes 05-06-2023 to 04-17-2025 Note Date & Type Note Facility 04-17-2025 Note [facility] Medical Records Department [address] [place] [address] Discharge Summary 04/17/25 1009 MR#: [id number] Acct: [id number] Name: ELISABETH WILDE Rep #: [id number] : 1950 75 From: Zeinab BRUNNER PCP: Amanda Bahena PA-C Status:DIS IN Location: ICU ICU06-1 Providers Date of Admission: 04/09/25 Primary Care Physician: Amanda Bahena PA-C Consultations 04/10/25 08:31 Consult: Hospitalist Routine Consulting Provider: [facility] Reason for Consult: HTN EMERGENT Consult: No MD Notified: Yes Date Notified: 04/09/25 Time Notified: 09:35 Method of Notification: Verbal Comments:: Dr. Guerrero Reason For Visit: left Carotid Endarterectomy Diagnosis Discharge Diagnosis (1) Carotid stenosis, bilateral: Status: Chronic Code(s): I65.23 - Occlusion and stenosis of bilateral carotid arteries Plan: She is POD # 4 left CEA. Her hypertension is now much improved and stably controlled on current regimen which has been titrated by hospitalist, their assistance is much appreciated. Plan is for discharge home today. (2) HTN (hypertension): Status: Chronic Code(s): I10 - Essential (primary) hypertension Medications at Discharge Home Medications ipratropium 0.5 mg-albuterol 3 mg (2.5 mg base)/3 mL nebulization soln 3 ml inhalation Q4H PRN PRN Sob /Or Wheezing 03/13/19 albuterol sulfate 90 mcg/actuation aerosol inhaler (Ventolin HFA) 2 puff inhalation Q4H PRN shortness of breath or wheezing #8.5 grams 08/24/23 cetirizine 10 mg tablet (Zyrtec) 10 mg PO DAILY PRN allergy symptoms 08/24/23 levothyroxine 150 mcg tablet (Synthroid) 150 mcg PO QDAY THYROID 02/14/24 fluticasone propionate 230 mcg-salmeterol 21 mcg/actuation HFA inhaler (Advair HFA) 2 inh inhalation BID ASTHMA #1 ea 02/13/25 clonidine HCl 0.1 mg tablet 0.1 mg PO BID HTN #60 tabs 02/27/25 aspirin 81 mg tablet,delayed release (Adult Aspirin Regimen) 81 mg PO DAILY SUPPLEMENT #360 tabs 03/01/25 clopidogrel 75 mg tablet (Plavix) 75 mg PO DAILY BLOOD THINNER #30 tabs 03/01/25 budesonide-formoterol HFA 160 mcg-4.5 mcg/actuation aerosol inhaler 2 puff inhalation BID ASTHMA 03/20/25 montelukast 10 mg tablet 10 mg PO QPM ASTHMA 04/09/25 amlodipine 10 mg tablet 10 mg PO DAILY #30 tabs 04/13/25 clonidine HCl 0.1 mg tablet 0.1 mg PO BID #60 tabs 04/13/25 furosemide 40 mg tablet 40 mg PO BIDLX #60 tabs 04/13/25 hydralazine 50 mg tablet 100 mg (2 x 50 mg) PO TID #180 tabs 04/13/25 metoprolol succinate 50 mg tablet,extended release 24 hr 150 mg (3 x 50 mg) PO BID #180 tabs 04/13/25 potassium chloride 10 mEq tablet,extended release (Klor-Con) 20 meq (2 x 10 mEq) PO DAILY #60 tabs 04/13/25 Hospital Course Summary of Care Provided Hospital Course: Elisabeth Wilde is a 75 y/o female who underwent L CEA on . Preoperatively, she was noted to be quite hypertensive and this persisted through her initial postoperative course as well. Postoperatively, she was routinely admitted to the ICU for ongoing hemodynamic and neurologic monitoring. She was initiated on a nitro drip initially postoperatively; she then developed some R lower facial droop, R facial paresthesias, and R sided headache. Repeat Brain CT and Head/Neck CTA were unremarkable. These symptoms were attributed to reperfusion syndrome and they resolved after elevating HOB and improving BP control. POD#1 AM she had been weaned from nitro, ABIODUN drain was removed without issue. POD#1 PM she developed Afib with RVR; initial cardizem IV did not convert the rhythm, IV metoprolol converted for a bit but then she reverted into Afib again then requiring IV amiodarone and increased PO metoprolol dose after which she converted back to sinus rhythm. On POD#2 she was taken off of clonidine per hospitalist; suffered some rebound hypertension with severe headache, nausea, and vomiting so another repeat brain CT was obtained which was negative for bleed or other complications at which point nipride drip had to be started. Then oral metoprolol, hydralazine, and amlodipine were titrated to max doses and ultimately clonidine restarted at twice daily dosing to control her HTN and she was able to come off of nipride drip POD#2 evening. On POD#3 her HTN had been well controlled on oral regimen, she had no headache, no further recurrent neurologic symptoms. She had minimal pain at the incision site, was eating, voiding, and ambulating to her baseline. She was discharged to home in stable condition on 04/13/2025. Physical Exam Const alert, oriented x3 and no apparent distress General Appearance: cooperative and comfortable HEENT normocephalic, head/scalp atraumatic, hearing grossly normal bilaterally, external ears normal and external nose normal Eyes EOMs intact bilaterally General Eye: normal appearance of both eyes Neck Neck Narrative: L CEA (more content not included)... [facility] 04-13-2025 Progress note [facility] 04-13-2025 Discharge summary [facility] 04-13-2025 Progress note [facility] 04-12-2025 Progress note Note Date/Time April 13, 2025 9:57am [facility] Medical Records Department [address] [place] [address] Progress Note - Hospitalist 04/12/25 190 MR#: [id number] Acct: [id number] Name: ELISABETH WILDE Rep #:[id number] : 1950 75 From: Wiley Guerrero DO PCP: Amanda Bahena PA-C Status:ADM I N Location: ICU ICU06-1 Reason for Visit Reason for Visit: Diagnoses Essential (primary) hypertension (04/09/25) Occlusion and stenosis of bilateral carotid arteries (04/09/25) Encounter for other preprocedural examination (04/09/25) Subjective Subjective Patient was seen and examined today, I have taken her off the night pride drip but unfortunately her pressure is still above 160. I have elected to place her back on clonidine 0.1 mg twice daily and continue with her present oral blood pressure medications, I increased her metoprolol today to 150 mg twice daily, her Apresoline was increased to 100 mg 3 times daily, and she remains on Lasix 40 mg twice a day and amlodipine 10 mg daily. Patient will be reevaluated tomorrow for possible discharge home. Objective Data Objective Data Vital Signs: Vital Signs Temp Pulse Resp BP Pulse Ox O2 Del Method O2 Flow Rate 97.9 F 78 20 H 160/73 H 93 Room Air 2 04/12/25 16:00 04/12/25 19:00 04/12/25 19:00 04/12/25 19:00 04/12/25 19:00 04/12/25 19:00 04/12/25 14:00 FiO2 40 04/12/25 16:00 Oxygen Flow Rate (L/min) 2 Oxygen Delivery Method Room Air Weight: 84.5 kg Body Mass Index (BMI) 33.0 Intake & Output: Intake and Output for Last 24 Hours 04/10/25 04/11/25 04/12/25 23:59 23:59 23:59 Intake Total 734.00 / 734.00 643.30 / 658.60 264.56 / 264.56 Output Total 760 / 760 950 / 1150 400 / 400 Balance -26.00 / -26.00 -306.70 / -491.40 -135.44 / -135.44 Lab / Micro Data 04/10/25 04:58 04/10/25 04:58 Physical Exam Narrative alert, oriented x3, no apparent distress and healthy appearing General Appearance: cooperative, well kempt and well developed Orientation / Consciousness: awake, oriented to person, oriented to place and oriented to time HEENT normocephalic and moist oral mucous membranes Eyes PERRL, EOMs intact bilaterally and conjunctivae normal Neck supple, no JVD, thyroid normal and no carotid bruits General: trachea midline Resp normal respiratory effort and clear to auscultation bilaterally Auscultation: Negative for rales, rhonchi or wheezes Cardio S1 normal heart sound, S2 normal heart sound, no murmurs, no rub and no gallops Cardio Narrative: Heart rate and rhythm is irregular GI normal to inspection, nondistended, normoactive bowel sounds, soft to palpation,non-tender and non-distended Extremity no clubbing, cyanosis or edema Skin no rashes or lesions noted General Skin Exam: no breakdown Neuro oriented x3, CN's II-XII intact bilaterally, moves all extremities, no focal motor deficits and no sensory deficits noted Sensorium / Orientation: awake and alert Speech: speech normal Psych affect normal Assessment & Plan Assessment/Plan (1) Carotid stenosis, bilateral: (2) HTN (hypertension): PLAN: Plan 1. New onset atrial fibrillation with RVR-patient remains in sinus rhythm at this point, continue oral metoprolol at 150 mg twice daily #2 essential hypertension under poor control at this time-blood pressure will bemonitored, adjustments on her medication will be made as needed, patient is now on a nitroprusside drip #3 hypothyroidism-patient's T4 slightly high-I do not think this is significant,free T4 is normal #4 carotid occlusive disease-status post carotid endarterectomy left #5 chronic obstructive pulmonary disease-complicates care, management, recovery,and prognosis #6 cephalgia-etiology unclear, resolved at this time #7 nausea and vomiting-resolved at this time Total clinical time spent by myself addressing the patient's medical issues, reviewing all of her data, and collaborating with patient's care team: 35 minutes Charges/Coding Visit Charges Inpatient E&M: 67855 Subs Hosp L2 04/13/25 0957 <Electronically signed by Wiley Guerrero DO> Cosigner Signature (if applicable): CC: ~ Signed [facility] Work Phone: 1(488) 214-889506-12-2025 Progress note Author Zeinab Carrillo [facility] Note Date/Time April 12, 2025 1:12 pm [facility] Medical Records Department [address] [place] [address] Progress Note - Surgery 04/12/25 1135 MR#: [id number] Acct: [id number] Name: ROBERTASKYVAHEELISABETH KAY Rep #:[id number] : 1950 75 From: Zeinab BRUNNER PCP: Amanda Bahena PA-C Status:ADM I N Location: ICU ICU06-1 Subjective Subjective I saw patient sitting in bed this morning getting ready to get up to the bedsidechair. She relates that she is feeling better today compared to yesterday, she reports she still has a headache but very mild. She has no other complaints. Afib has remained resolved but BPs have remained labile. She is still on the nitroprusside drip, systolic BP 140 on my exam. Objective Data Objective Data Vital Signs: Vital Signs Temp Pulse Resp BP Pulse Ox O2 Del Method O2 Flow Rate 97.9 F 74 16 140/61 H 96 Nasal Cannula 2 04/12/25 08:00 04/12/25 11:00 04/12/25 11:00 04/12/25 11:00 04/12/25 11:00 04/12/25 11:00 04/12/25 11:00 Oxygen Flow Rate (L/min) 2 Oxygen Delivery Method Nasal Cannula Weight: 186 lb 4.65 oz Body Mass Index (BMI) 33.0 Intake & Output: Intake and Output for Last 24 Hours 04/10/25 04/11/25 04/12/25 23:59 23:59 23:59 Intake Total 734.00 / 734.00 643.30 / 658.60 215.67 / 215.67 Output Total 760 / 760 950 / 1150 400 / 400 Balance -26.00 / -26.00 -306.70 / -491.40 -184.33 / -184.33 Lab / Micro Data 04/10/25 04:58 04/10/25 04:58 Radiography Diagnostic Testing: Radiology Impression Brain CT 04/11/25 16:15 IMPRESSION: NO ACUTE FINDINGS Reading Location: [place] [address] Physical Exam Const alert, oriented x3 and no apparent distress General Appearance: cooperative and comfortable HEENT normocephalic, head/scalp atraumatic, hearing grossly normal bilaterally, external ears normal and external nose normal Eyes EOMs intact bilaterally General Eye: normal appearance of both eyes Neck Neck Narrative: L CEA incision site satisfactory in appearance, skin glue intact, no increased swelling. General: trachea midline Resp normal respiratory effort, normal air movement, no retractions and no use of accessory muscles Effort and Inspection: able to speak in complete sentences; Negative for labored, grunting or stridor Cardio regular rate and regular rhythm Extremity normal to inspection, full ROM and no clubbing, cyanosis or edema General Extremity: normal exam except as noted Skin no rashes or lesions noted Trauma: no lacerations or abrasions Neuro oriented x3, CN's II-XII intact bilaterally, moves all extremities, no focal motor deficits and no sensory deficits noted Speech: speech normal Psych mental status grossly normal, thought process normal, cooperative, affect normal, speech normal and activity/motor behavior normal Appearance: grossly normal Attitude: calm and engaged Activity / Motor Behavior: appropriate eye contact Speech: normal speech Assessment & Plan Assessment/Plan (1) Carotid stenosis, bilateral: PLAN: She is POD # 3 left CEA with reperfusion syndrome, HTN remains difficult to control, still on nitroprusside drip. Appreciate hospitalist care, they have continued to escalate her PO regimen today. From surgical perspective, would be content with systolic BP <150 at this time. Charges/Coding Procedures Integumentary 111xxx-113xx: 72212 Global Visit 04/12/25 1311 <Electronically signed by Zeinab BRUNNER> Cosigner Signature (if applicable): 04/12/25 1312 <Electronically signed by Papo Sumner MD> CC: ~ Signed [facility] Work Phone: 1(202) 420-475106-12-2025 Progress note [facility] Medical Records Department [address] [place] [address] Progress Note - Surgery 04/12/25 1135 MR#: [id number] Acct: [id number] Name: ELISABETH WILDE Rep #:[id number] : 1950 75 From: Zeinab BRUNNER PCP: Amanda Bahena PA-C Status:ADM I N Location: ICU ICU06-1 Subjective Subjective I saw patient sitting in bed this morning getting ready to get up to the bedsidechair. She relates that she is feeling better today compared to yesterday, she reports she still has a headache but very mild. She has no other complaints. Afib has remained resolved but BPs have remained labile. She is still on the nitroprusside drip, systolic BP 140 on my exam. Objective Data Objective Data Vital Signs: Vital Signs Temp Pulse Resp BP Pulse Ox O2 Del Method O2 Flow Rate 97.9 F 74 16 140/61 H 96 Nasal Cannula 2 04/12/25 08:00 04/12/25 11:00 04/12/25 11:00 04/12/25 11:00 04/12/25 11:00 04/12/25 11:00 04/12/25 11:00 Oxygen Flow Rate (L/min) 2 Oxygen Delivery Method Nasal Cannula Weight: 186 lb 4.65 oz Body Mass Index (BMI) 33.0 Intake & Output: Intake and Output for Last 24 Hours 04/10/25 04/11/25 04/12/25 23:59 23:59 23:59 Intake Total 734.00 / 734.00 643.30 / 658.60 215.67 / 215.67 Output Total 760 / 760 950 / 1150 400 / 400 Balance -26.00 / -26.00 -306.70 / -491.40 -184.33 / -184.33 Lab / Micro Data 04/10/25 04:58 04/10/25 04:58 Radiography Diagnostic Testing: Radiology Impression Brain CT 04/11/25 16:15 IMPRESSION: NO ACUTE FINDINGS Reading Location: [place] [address] Physical Exam Const alert, oriented x3 and no apparent distress General Appearance: cooperative and comfortable HEENT normocephalic, head/scalp atraumatic, hearing grossly normal bilaterally, external ears normal and external nose normal Eyes EOMs intact bilaterally General Eye: normal appearance of both eyes Neck Neck Narrative: L CEA incision site satisfactory in appearance, skin glue intact, no increased swelling. General: trachea midline Resp normal respiratory effort, normal air movement, no retractions and no use of accessory muscles Effort and Inspection: able to speak in complete sentences; Negative for labored, grunting or stridor Cardio regular rate and regular rhythm Extremity normal to inspection, full ROM and no clubbing, cyanosis or edema General Extremity: normal exam except as noted Skin no rashes or lesions noted Trauma: no lacerations or abrasions Neuro oriented x3, CN's II-XII intact bilaterally, moves all extremities, no focal motor deficits and no sensory deficits noted Speech: speech normal Psych mental status grossly normal, thought process normal, cooperative, affect normal, speech normal andactivity/motor behavior normal Appearance: grossly normal Attitude: calm and engaged Activity / Motor Behavior: appropriate eye contact Speech: normal speech Assessment & Plan Assessment/Plan (1) Carotid stenosis, bilateral: PLAN: She is POD # 3 left CEA with reperfusion syndrome, HTN remains difficult to control, still onnitroprusside drip. Appreciate hospitalist care, they have continued to escalate her PO regimen today. From surgical perspective, would be content with systolic BP <150 at this time. Charges/Coding Procedures Integumentary 111xxx-113xx: 77632 Global Visit 04/12/25 1311 Cosigner Signature (if applicable): 04/12/25 1312 CC: ~ Signed [facility]06-11-2025 Progress note Author Papo Sumner [facility] Note Date/Time April 11, 2025 6:15 pm [facility] Medical Records Department [address] [place] [address] Progress Note - Surgery 04/11/25 1811 MR#: [id number] Acct: [id number] Name: ELISABETH WILDE Rep #:[id number] : 1950 75 From: Papo Sumner MD PCP: Amadna Bahena PA-C Status:ADM I N Location: ICU ICU06-1 Subjective Subjective Better this evening. A fib has been resolved for last 24 hours but today BP has been difficult to control. At times up to 200 systolic, others more acceptable. Late afternoon had SBP 200s, BAUMANN, N/V. CT head completed and negative for bleeding, nipride drip started. BP better now, symptoms better now. Objective Data Objective Data A&O x 3, NAD RRR Resp non labored motor/sensory intact bilateral, CN intact Inc C/D/I Vital Signs: Vital Signs Temp Pulse Resp BP Pulse Ox O2 Del Method O2 Flow Rate 97.5 F L 80 20 H 130/61 H 92 Nasal Cannula 2 04/11/25 09:00 04/11/25 18:00 04/11/25 18:00 04/11/25 18:00 04/11/25 18:00 04/11/25 18:04/11/25 18:00 Oxygen Flow Rate (L/min) 2 Oxygen Delivery Method Nasal Cannula Weight: 186 lb 15.232 oz Body Mass Index (BMI) 33.1 Intake & Output: Intake and Output for Last 24 Hours 04/09/25 04/10/25 04/11/25 23:59 23:59 23:59 Intake Total 2599.20 / 2605.95 734.00 / 734.00 566.78 / 566.78 Output Total 85 / 495 760 / 760 950 / 950 Balance 2514.20 / 2110.95 -26.00 / -26.00 -383.22 / -383.22 Lab / Micro Data 04/10/25 04:58 04/10/25 04:58 Radiography Diagnostic Testing: Radiology Impression Brain CT 04/11/25 16:15 IMPRESSION: NO ACUTE FINDINGS Reading Location: [place] [address] Assessment & Plan Assessment/Plan (1) Carotid stenosis, bilateral: PLAN: -POD # 2 left CEA with reperfusion syndrome, HTN out of control -CT head negative -cont to escaate PO regimen, PRN IV and drips as needed -hospitalist care appreciated 04/11/251814 <Electronically signed by Papo Sumner MD> Cosigner Signature (if applicable): CC: ~ Signed [facility] Work Phone: 1(553) 739-699606-11-2025 Progress note Author Wiley Guerrero [facility] Note Date/Time April 11, 2025 6:14 pm [facility] Medical Records Department [address] [place] [address] Progress Note - Hospitalist 04/11/25 1808 MR#: [id number] Acct: [id number] Name: ELISABETH WILDE Rep #:[id number] : 1950 75 From: Wiley Guerrero DO PCP: Amanda Bahena PA-C Status:ADM I N Location: ICU ICU06-1 Reason for Visit Reason for Visit: Diagnoses Essential (primary) hypertension (04/09/25) Occlusion and stenosis of bilateral carotid arteries (04/09/25) Encounter for other preprocedural examination (04/09/25) Subjective Subjective Patient was seen and examined today, her blood pressures have been labile today and hard to control at times, placed her on additional medications to see if we can get the blood pressure under control, this afternoon patient became nauseated and vomited, she also had a severe headache, she was sent down for CT of the brain which did not show any acute process. I placed the patient on nitroprusside to try to control her blood pressure, she has gotten Apresoline IVand p.o. today as well as Lasix and metoprolol. I talked several times with about her care. Patient converted to sinus rhythm last night approximately 7:30 PM, she is no longer on any amiodarone. Objective Data Objective Data Vital Signs: Vital Signs Temp Pulse Resp BP Pulse Ox O2 Del Method O2 Flow Rate 97.5 F L 80 20 H 130/61 H 92 Nasal Cannula 2 04/11/25 09:00 04/11/25 18:00 04/11/25 18:00 04/11/25 18:00 04/11/25 18:00 04/11/25 18:00 04/11/25 18:00 Oxygen Flow Rate (L/min) 2 Oxygen Delivery Method Nasal Cannula Weight: 84.8 kg Body Mass Index (BMI) 33.1 Intake & Output: Intake and Output for Last 24 Hours 04/09/25 04/10/25 04/11/25 23:59 23:59 23:59 Intake Total 2599.20 / 2605.95 734.00 / 734.00 566.78 / 566.78 Output Total 85 / 495 760 / 760 950 / 950 Balance 2514.20 / 2110.95 -26.00 / -26.00 -383.22 / -383.22 Lab / Micro Data 04/10/25 04:58 04/10/25 04:58 Radiography Diagnostic Testing: Radiology Impression Brain CT 04/11/25 16:15 IMPRESSION: NO ACUTE FINDINGS Reading Location: [place] [address] Physical Exam Narrative alert, oriented x3, no apparent distress and healthy appearing General Appearance: cooperative, well kempt and well developed Orientation / Consciousness: awake, oriented to person, oriented to place and oriented to time HEENT normocephalic and moist oral mucous membranes Eyes PERRL, EOMs intact bilaterally and conjunctivae normal Neck supple, no JVD, thyroid normal and no carotid bruits General: trachea midline Resp normal respiratory effort and clear to auscultation bilaterally Auscultation: Negative for rales, rhonchi or wheezes Cardio S1 normal heart sound, S2 normal heart sound, no murmurs, no rub and no gallops Cardio Narrative: Heart rate and rhythm is irregular GI normal to inspection, nondistended, normoactive bowel sounds, soft to palpation,non-tender and non-distended Extremity no clubbing, cyanosis or edema Skin no rashes or lesions noted General Skin Exam: no breakdown Neuro oriented x3, CN's II-XII intact bilaterally, moves all extremities, no focal motor deficits and no sensory deficits noted Sensorium / Orientation: awake and alert Speech: speech normal Psych affect normal Assessment & Plan Assessment/Plan (1) HTN (hypertension): PLAN: Plan 1. New onset atrial fibrillation with RVR-patient remains in sinus rhythm at this point, continue oral metoprolol at 100 mg twice daily #2 essential hypertension under poor control at this time-blood pressure will bemonitored, adjustments on her medication will be made as needed, patient is now on a nitroprusside drip #3 hypothyroidism-patient's T4 slightly high-I do not think this is significant,free T4 is normal #4 carotid occlusive disease-status post carotid endarterectomy left #5 chronic obstructive pulmonary disease-complicates care, management, recovery,and prognosis #6 cephalgia-etiology unclear, patient was medicated for discomfort #7 nausea and vomiting-etiology unclear, patient was given IV Compazine as well as Zofran Total clinical time spent by myself addressing the patient's medical issues, reviewing all of her data, and collaborating with patient's care team: 35 minutes Charges/Coding Visit Charges Inpatient E&M: 77292 Subs Hosp L2 04/11/251813 <Electronically signed by Wiley Guerrero DO> Cosigner Signature (if applicable): CC: ~ Signed [facility] Work Phone: 1(600) 655-796806-11-2025 Progress note [facility] Medical Records Department [address] [place] [address] Progress Note - Surgery 04/11/251810 MR#: [id number] Acct: [id number] Name: ELISABETH WILDE Rep #:[id number] : 1950 75 From: Papo Sumner MD PCP: Amanda Bahena PA-C Status:ADM I N Location: ICU ICU06-1 Subjective Subjective Better this evening. A fib has been resolved for last 24 hours but today BP has been difficult to control. At times up to 200 systolic, others more acceptable. Late afternoon had SBP 200s, BAUMANN, N/V. CT head completed and negative for bleeding, nipride drip started. BP better now, symptoms better now. Objective Data Objective Data A&O x 3, NAD RRR Resp non labored motor/sensory intact bilateral, CN intact Inc C/D/I Vital Signs: Vital Signs Temp Pulse Resp BP Pulse Ox O2 Del Method O2 Flow Rate 97.5 F L 80 20 H 130/61 H 92 Nasal Cannula 2 04/11/25 09:00 04/11/25 18:00 04/11/25 18:00 04/11/25 18:00 04/11/25 18:00 04/11/25 18:00 04/11/25 18:00 Oxygen Flow Rate (L/min) 2 Oxygen Delivery Method Nasal Cannula Weight: 186 lb 15.232 oz Body Mass Index (BMI) 33.1 Intake & Output: Intake and Output for Last 24 Hours 04/09/25 04/10/25 04/11/25 23:59 23:59 23:59 Intake Total 2599.20 / 2605.95 734.00 / 734.00 566.78 / 566.78 Output Total 85 / 495 760 / 760 950 / 950 Balance 2514.20 / 2110.95 -26.00 / -26.00 -383.22 / -383.22 Lab / Micro Data 04/10/25 04:58 04/10/25 04:58 Radiography Diagnostic Testing: Radiology Impression Brain CT 04/11/25 16:15 IMPRESSION: NO ACUTE FINDINGS Reading Location: [place] [address] Assessment & Plan Assessment/Plan (1) Carotid stenosis, bilateral: PLAN: -POD # 2 left CEA with reperfusion syndrome, HTN out of control -CT head negative -cont to escaate PO regimen, PRN IV and drips as needed -hospitalist care appreciated 04/11/251814 Cosigner Signature (if applicable): CC: ~ Signed [facility]06-11-2025 Progress note [facility] Medical Records Department [address] [place] [address] Progress Note - Hospitalist 04/11/25 180 MR#: [id number] Acct: [id number] Name: ELISABETH WILDE Rep #:[id number] : 1950 75 From: Wiley Guerrero DO PCP: Amanda Bahena PA-C Status:ADM I N Location: ICU ICU06 Reason for Visit Reason for Visit: Diagnoses Essential (primary) hypertension (04/09/25) Occlusion and stenosis of bilateral carotid arteries (04/09/25) Encounter for other preprocedural examination (04/09/25) Subjective Subjective Patient was seen and examined today, her blood pressures have been labile today and hard to controlat times, placed her on additional medications to see if we can get the blood pressure under control, this afternoon patient became nauseated and vomited, she also had a severe headache, she was sentdown for CT of the brain which did not show any acute process. I placed the patient on nitroprusside to try to control her blood pressure, she has gotten Apresoline IVand p.o. today as well as Lasix and metoprolol. I talked several times with about her care. Patient converted to sinus rhythm last night approximately 7:30 PM, she is no longer on any amiodarone. Objective Data Objective Data Vital Signs: Vital Signs Temp Pulse Resp BP Pulse Ox O2 Del Method O2 Flow Rate 97.5 F L 80 20 H 130/61 H 92 Nasal Cannula 2 04/11/25 09:00 04/11/25 18:00 04/11/25 18:00 04/11/25 18:00 04/11/25 18:00 04/11/25 18:00 04/11/25 18:00 Oxygen Flow Rate (L/min) 2 Oxygen Delivery Method Nasal Cannula Weight: 84.8 kg Body Mass Index (BMI) 33.1 Intake & Output: Intake and Output for Last 24 Hours 0604/10/25 04/11/25 23:59 23:59 23:59 Intake Total 2599.20 / 2605.95 734.00 / 734.00 566.78 / 566.78 Output Total 85 / 495 760 / 760 950 / 950 Balance 2514.20 / 2110.95 -26.00 / -26.00 -383.22 / -383.22 Lab / Micro Data 04/10/25 04:58 04/10/25 04:58 Radiography Diagnostic Testing: Radiology Impression Brain CT 04/11/25 16:15 IMPRESSION: NO ACUTE FINDINGS Reading Location: [place] [address] Physical Exam Narrative alert, oriented x3, no apparent distress and healthy appearing General Appearance: cooperative, well kempt and well developed Orientation / Consciousness: awake, oriented to person, oriented to place and oriented to time HEENT normocephalic and moist oral mucous membranes Eyes PERRL, EOMs intact bilaterally and conjunctivae normal Neck supple, no JVD, thyroid normal and no carotid bruits General: trachea midline Resp normal respiratory effort and clear to auscultation bilaterally Auscultation: Negative for rales, rhonchi or wheezes Cardio S1 normal heart sound, S2 normal heart sound, no murmurs, no rub and no gallops Cardio Narrative: Heart rate and rhythm is irregular GI normal to inspection, nondistended, normoactive bowel sounds, soft to palpation,non-tender and non-distended Extremity no clubbing, cyanosis or edema Skin no rashes or lesions noted General Skin Exam: no breakdown Neuro oriented x3, CN's II-XII intact bilaterally, moves all extremities, no focal motor deficits and no sensory deficits noted Sensorium / Orientation: awake and alert Speech: speech normal Psych affect normal Assessment & Plan Assessment/Plan (1) HTN (hypertension): PLAN: Plan 1. New onset atrial fibrillation with RVR-patient remains in sinus rhythm at this point, continue oral metoprolol at 100 mg twice daily #2 essential hypertension under poor control at this time-blood pressure will bemonitored, adjustments on her medication will be made as needed, patient is now on a nitroprusside drip #3 hypothyroidism-patient's T4 slightly high-I do not think this is significant,free T4 is normal #4 carotid occlusive disease-status post carotid endarterectomy left #5 chronic obstructive pulmonary disease-complicates care, management, recovery,and prognosis #6 cephalgia-etiology unclear, patient was medicated for discomfort #7 nausea and vomiting-etiology unclear, patient was given IV Compazine as well as Zofran Total clinical time spent by myself addressing the patient's medical issues, reviewing all of her data, and collaborating with patient's care team: 35 minutes Charges/Coding Visit Charges Inpatient E&M: 93603 Subs Hosp L2 04/11/25 1814 Cosigner Signature (if applicable): CC: ~ Signed [facility]06-11-2025 Radiology Diagnostic study note [facility] Imaging Services [address] [place], [place] [address] Brain/Head without Contrast MR#: [id number] Acct: [id number] Name: ELISABETH WILDE Rep #: [id number] : 1950 F 75 From: Darren Simms MD PCP: Amanda Bahena PA-C Status: ADM I N Study:Brain/Head without Contrast Date of Exa m: 04/11/25 Exam# [id number] Ordering Dr: Erika Sumner MD PROCEDURE: BRAIN/HEAD WITHOUT CONTRAST 04/11/2025 REASON FOR EXAM: HYPERTENSION TECHNIQUE: Head CT without intravenous contrast. Coronal and Sagittal reconstruction serieswere provided. One or more dose reduction techniques were used (e.g., Automated exposure control, adjustment of the mA and/or kV according to patient size, use of iterative reconstruction technique. RADIATION DOSE SUMMARY: CTDlvol: 44.99 mGy DLP: 829.85 mGycm COMPARISON: None. FINDINGS: The ventricles are normal in size and midline in position. No evidence of acutehemorrhage or infarction. No extra-axial blood or fluid collections. The paranasal sinuses are clear. The mastoid air cells are well aerated. The calvarial vault and skull base are intact. CT/Brain/Head without Contrast IMPRESSION: NO ACUTE FINDINGS Reading Location: [id number] CC: LORNA Bahena; Dr. Papo Sumner MD ~ Induction Heating Equipment Setter: Signed [facility]06-10-2025 Progress note Author Wiley Guerrero [facility] Note Date/Time April 10, 2025 6:32 pm [facility] Medical Records Department [address] [place] [address] Progress Note - Hospitalist 04/10/25 1825 MR#: [id number] Acct: [id number] Name: ELISABETH WILDE Rep #:[id number] : 1950 75 From: Wiley Guerrero DO PCP: Amanda Bahena PA-C Status:ADM I N Location: ICU ICU06- Reason for Visit Reason for Visit: Diagnoses Occlusion and stenosis of bilateral carotid arteries (04/09/25) Encounter for other preprocedural examination (04/09/25) Subjective Subjective Patient was seen and examined today, she went into atrial fib with RVR today, I talked with vascular surgery about her care. I first elected to give her IV Cardizem x 2 which did not convert her, rate was slowed down only slightly, I then gave her IV metoprolol which converted her to sinus rhythm for time but shethen went back into atrial fib later on the afternoon. At that time I gave her additional IV and oral metoprolol, this did not slow her rate down appreciably and I ended up giving her IV amiodarone bolus of 150 mg and placed her on amiodarone drip. Thyroid functions were obtained and her oral metoprolol was increased substantially to 100 mg twice daily. Also talked her about the clonidine she is taking, she complains of a dry mouth and sleepiness with this medication. I will try to reduce the medication and plan on her tapering it offas an outpatient. Objective Data Objective Data Vital Signs: Vital Signs Temp Pulse Resp BP Pulse Ox O2 Del Method O2 Flow Rate 97.6 F L 103 H 23 H 158/73 H 93 Room Air 2 04/10/25 08:00 04/10/25 18:10 04/10/25 18:00 04/10/25 18:00 04/10/25 18:00 04/10/25 18:00 04/10/25 05:00 Oxygen Flow Rate (L/min) 2 Oxygen Delivery Method Room Air Weight: 84.8 kg Body Mass Index (BMI) 33.1 Intake & Output: Intake and Output for Last 24 Hours 04/08/25 04/09/25 04/10/25 23:59 23:59 23:59 Intake Total 2599.20 / 2605.95 734.00 / 734.00 Output Total 85 / 495 760 / 760 Balance 2514.20 / 2110.95 -26.00 / -26.00 Lab / Micro Data 04/10/25 04:58 04/10/25 04:58 Labs: Laboratory Results - last 24 hr 04/10/25 04:58: WBC 16.8 H, RBC 3.92 L, Hgb 12.1, Hct 35.4 L, MCV 90.3, MCH 30.9, MCHC 34.2, RDW Std Deviation 52.6 H, RDW Coeff of Jennifer 15.9 H, Plt Count 301, MPV 10.2, Immature Gran % (Auto) 0.400, Neut % (Auto) 88.1 H, Lymph % (Auto) 5.7 L, Dare % (Auto) 5.0, Eos % (Auto) 0.4, Baso % (Auto) 0.4, Absolute Neuts (auto) 14.8 H, Absolute Lymphs (auto) 0.96, Nucleated RBC % 0, Sodium 139,Potassium 3.5, Chloride 109 H, Carbon Dioxide 20.3 L, Anion Gap 10, BUN 17, Creatinine 0.68 L, Estim Creat Clear Calc 64.66, Est GFR (MDRD) Non-Af 92, BUN/Creatinine Ratio 25.4 H, Glucose 111 H, Calcium 8.8 04/10/25 16:40: Thyroxine (T4) 14.3 H, Free T3 pg/dL 2.2 Radiography Diagnostic Testing: Radiology Impression Echocardiogram 04/10/25 11:04 Interpretation Summary Moderate concentric left ventricular hypertrophy. The LV systolic function is normal. EF is 60 %. Stage 1 diastolic dysfunction. Mild to moderate (1-2+) tricuspid valve insufficiency. Right ventricular systolic pressure estimated to be 37 mmHg. Aortic sclerosis, no stenosis. Ordering Physician: Wiley Guerrero Referring Physician: AMANDA BAHENA Performed By: Britney Lock RDCS and Student Physical Exam Const alert, oriented x3, no apparent distress and healthy appearing General Appearance: cooperative, well kempt and well developed Orientation / Consciousness: awake, oriented to person, oriented to place and oriented to time HEENT normocephalic and moist oral mucous membranes Eyes PERRL, EOMs intact bilaterally and conjunctivae normal Neck supple, no JVD, thyroid normal and no carotid bruits General: trachea midline Resp normal respiratory effort and clear to auscultation bilaterally Auscultation: Negative for rales, rhonchi or wheezes Cardio S1 normal heart sound, S2 normal heart sound, no murmurs, no rub and no gallops Cardio Narrative: Heart rate and rhythm is irregular GI normal to inspection, nondistended, normoactive bowel sounds, soft to palpation,non-tender and non-distended Extremity no clubbing, cyanosis or edema Skin no rashes or lesions noted General Skin Exam: no breakdown Neuro oriented x3, CN's II-XII intact bilaterally, moves all extremities, no focal motor deficits and no sensory deficits noted Sensorium / Orientation: awake and alert Speech: speech normal Psych affect normal Assessment & Plan Assessment/Plan (1) HTN (hypertension): PLAN: Plan 1. New onset atrial fibrillation with RVR-echocardiogram was performed today, showed her EF to be 60% with mild pulmonary hypertension. Left and right atria are normal. Patient was placed on amiodarone drip, she will continue her beta-sheila and I will stop her nighttime dose of clonidine. Patient will be reevaluated tomorrow #2 essential hypertension-blood pressure will be monitored, adjustments on her medication will be made as needed #3 hypothyroidism-patient will have thyroid function tests ordered #4 carotid occlusive disease-status post carotid endarterectomy left #5 chronic obstructive pulmonary disease-complicates care, management, recovery,and prognosis Total clinical time spent by myself addressing the patient's medical issues, reviewing all of her data, and collaborating with patient's care team: 50 minutes Charges/Coding Visit Charges Inpatient E&M: 80312 Subs Hosp L3 04/10/25 1832 <Electronically signed by Wiley Guerrero DO> Cosigner Signature (if applicable): CC: ~ Signed [facility] Work Phone: 1(716) 141-725206-10-2025 Progress note [facility] Medical Records Department [address] [place] [address] Progress Note - Hospitalist 04/10/255 MR#: [id number] Acct: [id number] Name: ELISABETH WILDE Rep #:[id number] : 1950 75 From: Wiley Guerrero DO PCP: Amanda Bahena PA-C Status:ADM I N Location: ICU ICU06- Reason for Visit Reason for Visit: Diagnoses Occlusion and stenosis of bilateral carotid arteries (04/09/25) Encounter for other preprocedural examination (04/09/25) Subjective Subjective Patient was seen and examined today, she went into atrial fib with RVR today, I talked with vascular surgery about her care. I first elected to give her IV Cardizem x 2 which did not convert her, rate was slowed down only slightly, I then gave her IV metoprolol which converted her to sinus rhythm for time but shethen went back into atrial fib later on the afternoon. At that time I gave her additional IV and oral metoprolol, this did not slow her rate down appreciably and I ended up giving her IV amiodarone bolus of 150 mg and placed her on amiodarone drip. Thyroid functions were obtained and her oral metoprolol was increased substantially to 100 mg twice daily. Also talked her about the clonidine she is taking, she complains of a dry mouth and sleepiness with this medication. I will try to reduce the medication and plan on her tapering it offas an outpatient. Objective Data Objective Data Vital Signs: Vital Signs Temp Pulse Resp BP Pulse Ox O2 Del Method O2 Flow Rate 97.6 F L 103 H 23 H 158/73 H 93 Room Air 2 04/10/25 08:00 04/10/25 18:10 04/10/25 18:00 04/10/25 18:00 04/10/25 18:00 04/10/25 18:00 04/10/25 05:00 Oxygen Flow Rate (L/min) 2 Oxygen Delivery Method Room Air Weight: 84.8 kg Body Mass Index (BMI) 33.1 Intake & Output: Intake and Output for Last 24 Hours 04/08/25 04/09/25 04/10/25 23:59 23:59 23:59 Intake Total 2599.20 / 2605.95 734.00 / 734.00 Output Total 85 / 495 760 / 760 Balance 2514.20 / 2110.95 -26.00 / -26.00 Lab / Micro Data 04/10/25 04:58 04/10/25 04:58 Labs: Laboratory Results - last 24 hr 04/10/25 04:58: WBC 16.8 H, RBC 3.92 L, Hgb 12.1, Hct 35.4 L, MCV 90.3, MCH 30.9, MCHC 34.2, RDW Std Deviation 52.6 H, RDW Coeff of Jennifer 15.9 H, Plt Count 301, MPV 10.2, Immature Gran % (Auto) 0.400, Neut % (Auto) 88.1 H, Lymph % (Auto) 5.7 L, Dare % (Auto) 5.0, Eos % (Auto) 0.4, Baso % (Auto) 0.4, Absolute Neuts (auto) 14.8 H, Absolute Lymphs (auto) 0.96, Nucleated RBC % 0, Sodium 139,Potassium 3.5, Chloride 109 H, Carbon Dioxide 20.3 L, Anion Gap 10, BUN 17, Creatinine 0.68 L, Estim Creat Clear Calc 64.66, Est GFR (MDRD) Non-Af 92, BUN/Creatinine Ratio 25.4 H, Glucose 111 H, Calcium 8.8 04/10/25 16:40: Thyroxine (T4) 14.3 H, Free T3 pg/dL 2.2 Radiography Diagnostic Testing: Radiology Impression Echocardiogram 04/10/25 11:04 Interpretation Summary Moderate concentric left ventricular hypertrophy. The LV systolic function is normal. EF is 60 %. Stage 1 diastolic dysfunction. Mild to moderate (1-2+) tricuspid valve insufficiency. Right ventricular systolic pressure estimated to be 37 mmHg. Aortic sclerosis, no stenosis. Ordering Physician: Wiley Guerrero Referring Physician: AMANDA BAHENA Performed By: Britney Lock RDCS and Student Physical Exam Const alert, oriented x3, no apparent distress and healthy appearing General Appearance: cooperative, well kempt and well developed Orientation / Consciousness: awake, oriented to person, oriented to place and oriented to time HEENT normocephalic and moist oral mucous membranes Eyes PERRL, EOMs intact bilaterally and conjunctivae normal Neck supple, no JVD, thyroid normal and no carotid bruits General: trachea midline Resp normal respiratory effort and clear to auscultation bilaterally Auscultation: Negative for rales, rhonchi or wheezes Cardio S1 normal heart sound, S2 normal heart sound, no murmurs, no rub and no gallops Cardio Narrative: Heart rate and rhythm is irregular GI normal to inspection, nondistended, normoactive bowel sounds, soft to palpation,non-tender and non-distended Extremity no clubbing, cyanosis or edema Skin no rashes or lesions noted General Skin Exam: no breakdown Neuro oriented x3, CN's II-XII intact bilaterally, moves all extremities, no focal motor deficits and no sensory deficits noted Sensorium / Orientation: awake and alert Speech: speech normal Psych affect normal Assessment & Plan Assessment/Plan (1) HTN (hypertension): PLAN: Plan 1. New onset atrial fibrillation with RVR-echocardiogram was performed today, showed her EF to be 60% with mild pulmonary hypertension. Left and right atria are normal. Patient was placed on amiodarone drip, she will continue her beta- sheila and I will stop her nighttime dose of clonidine. Patientwill be reevaluated tomorrow #2 essential hypertension-blood pressure will be monitored, adjustments on her medication will be made as needed #3 hypothyroidism-patient will have thyroid function tests ordered #4 carotid occlusive disease-status post carotid endarterectomy left #5 chronic obstructive pulmonary disease-complicates care, management, recovery,and prognosis Total clinical time spent by myself addressing the patient's medical issues, reviewing all of her data, and collaborating with patient's care team: 50 minutes Charges/Coding Visit Charges Inpatient E&M: 09281 Subs Hosp L3 04/10/25 1832 Cosigner Signature (if applicable): CC: ~ Signed [facility]06-10-2025 Progress note Author Zeinab Carrillo [facility] Note Date/Time April 10, 2025 12:1 6pm [facility] Medical Records Department [address] [place] [address] Progress Note - Surgery 04/10/25 0835 MR#: [id number] Acct: [id number] Name: ELISABETH WILDE Rep #:[id number] : 1950 75 From: Zeinab BRUNNER PCP: Amanda Bahena PA-C Status:ADM I N Location: ICU ICU06-1 Subjective Subjective Patient was seen resting comfortably in bed this morning. She reports a mild headache at the base of her neck, denies any lateralized left-sided headaches. She reports the numbness/paresthesias on the right side of her mouth have completely resolved. She has not noticed any other focal neurologic symptoms. She reported expected discomfort at the incision site. No other complaints. She was hypertensive even preoperatively, postoperatively was initially on a nitro drip which was stopped at 0300; she has been maintained with PRN labetalolsince then, received her home meds this morning and pressures are systolic 120s on my exam. She had Head CT negative for bleed and Head/Neck CTA negative for any hematoma or other postoperative complication yesterday. Objective Data Objective Data Vital Signs: Vital Signs Temp Pulse Resp BP Pulse Ox O2 Del Method O2 Flow Rate 97.8 F 70 15 136/51 H 92 Room Air 2 04/10/25 04:00 04/10/25 07:03 04/10/25 07:00 04/10/25 07:00 04/10/25 07:00 04/10/25 07:48 04/10/25 05:00 Oxygen Flow Rate (L/min) 2 Oxygen Delivery Method Room Air Weight: 186 lb 15.232 oz Body Mass Index (BMI) 33.1 Intake & Output: Intake and Output for Last 24 Hours 04/08/25 04/09/25 04/10/25 23:59 23:59 23:59 Intake Total 2599.20 / 2605.95 221.00 / 221.00 Output Total 85 / 495 760 / 760 Balance 2514.20 / 2110.95 -539.00 / -539.00 Lab / Micro Data 04/10/25 04:58 04/10/25 04:58 Labs: Laboratory Results - last 24 hr 04/09/25 07:01: Activated Clotting Time 124 04/09/25 07:59: Activated Clotting Time 314 H 04/09/25 08:35: Activated Clotting Time 245 H 04/09/25 14:35: Sodium 142, Potassium 3.7, Chloride 110 H, Carbon Dioxide 19.4 L, Anion Gap 12, BUN 19, Creatinine 0.65 L, Estim Creat Clear Calc 64.66, Est GFR(MDRD) Non-Af 93, BUN/Creatinine Ratio 29.1 H, Glucose 145 H, Calcium 9.1 04/10/25 04:58: WBC 16.8 H, RBC 3.92 L, Hgb 12.1, Hct 35.4 L, MCV 90.3, MCH 30.9, MCHC 34.2, RDW Std Deviation 52.6 H, RDW Coeff of Jennifer 15.9 H, Plt Count 301, MPV 10.2, Immature Gran % (Auto) 0.400, Neut % (Auto) 88.1 H, Lymph % (Auto) 5.7 L, Dare % (Auto) 5.0, Eos % (Auto) 0.4, Baso % (Auto) 0.4, Absolute Neuts (auto) 14.8 H, Absolute Lymphs (auto) 0.96, Nucleated RBC % 0, Sodium 139,Potassium 3.5, Chloride 109 H, Carbon Dioxide 20.3 L, Anion Gap 10, BUN 17, Creatinine 0.68 L, Estim Creat Clear Calc 64.66, Est GFR (MDRD) Non-Af 92, BUN/Creatinine Ratio 25.4 H, Glucose 111 H, Calcium 8.8 Radiography Diagnostic Testing: Radiology Impression Brain CT 04/09/25 14:10 IMPRESSION: No acute intracranial finding. Reading Location: [id number] Neck CTA 04/09/25 14:12 IMPRESSION: 1. Status post left carotid endarterectomy with surgical clips and indwelling surgical drain. 2. Interval improvement in the prior severe left carotid bulb and ICA stenosis. Unchanged severe stenosis of the right ICA just distal to its origin. 3. No large vessel occlusion is visualized. Reading Location: [facility] Physical Exam Const alert, oriented x3 and no apparent distress General Appearance: cooperative and comfortable HEENT normocephalic, head/scalp atraumatic, hearing grossly normal bilaterally, external ears normal and external nose normal Eyes EOMs intact bilaterally General Eye: normal appearance of both eyes Neck General: normal visual inspection and trachea midline Resp normal respiratory effort, normal air movement, no retractions and no use of accessory muscles Effort and Inspection: able to speak in complete sentences; Negative for labored, grunting or stridor Cardio regular rate and regular rhythm Extremity normal to inspection, full ROM and no clubbing, cyanosis or edema General Extremity: normal exam except as noted Skin no rashes or lesions noted Trauma: no lacerations or abrasions Neuro oriented x3, CN's II-XII intact bilaterally, moves all extremities, no focal motor deficits and no sensory deficits noted Speech: speech normal Psych mental status grossly normal, thought process normal, cooperative, affect normal, speech normal and activity/motor behavior normal Appearance: grossly normal Attitude: calm and engaged Activity / Motor Behavior: appropriate eye contact Speech: normal speech Assessment & Plan Assessment/Plan (1) Carotid stenosis, bilateral: PLAN: She is POD#1 s/p L CEA. ABIODUN drain removed this morning, she tolerated this well. The incision site is satisfactory in appearance, no hematoma. Her prior mild R facial droop and R facial numbness/paresthesias have fully resolved, do feel this was secondary to reperfusion. At present, her BP is improved but still requiring PRNs this morning. BP will need to be well-controlled with systolics <140 on oral regimen prior to discharge home. She was quite hypertensive preoperatively, so do not feel her current hypertension is mediated by surgery; hospitalist was consulted for assistance managing her HTN and their assistance is appreciated. Plan for ambulation with nursing or PT later this morning or this afternoon. Discharge will be pending stability of her blood pressures through the day. 04/10/25 0959 <Electronically signed by Zeinab BRUNNER> Cosigner Signature (if applicable): 04/10/25 1216 <Electronically signed by Papo Sumner MD> CC: ~ Signed [facility] Work Phone: 1(321) 377-184506-10-2025 Progress note [facility] Medical Records Department [address] [place] [address] Progress Note - Surgery 04/10/25 0835 MR#: [id number] Acct: [id number] Name: ELISABETH WILDE Rep #:[id number] : 1950 75 From: Zeinab BRUNNER PCP: Amanda Bahena PA-C Status:ADM I N Location: ICU ICU06-1 Subjective Subjective Patient was seen resting comfortably in bed this morning. She reports a mild headache at the base of her neck, denies any lateralized left-sided headaches. She reports the numbness/paresthesias on the right side of her mouth have completely resolved. She has not noticed any other focal neurologic symptoms. She reported expected discomfort at the incision site. No other complaints. She was hypertensive even preoperatively, postoperatively was initially on a nitro drip which was stopped at 0300; she has been maintained with PRN labetalolsince then, received her home meds this morning and pressures are systolic 120s on my exam. She had Head CT negative for bleed and Head/Neck CTA negative for any hematoma or other postoperative complication yesterday. Objective Data Objective Data Vital Signs: Vital Signs Temp Pulse Resp BP Pulse Ox O2 Del Method O2 Flow Rate 97.8 F 70 15 136/51 H 92 Room Air 2 04/10/25 04:00 04/10/25 07:03 04/10/25 07:00 04/10/25 07:00 04/10/25 07:00 04/10/25 07:48 04/10/25 05:00 Oxygen Flow Rate (L/min) 2 Oxygen Delivery Method Room Air Weight: 186 lb 15.232 oz Body Mass Index (BMI) 33.1 Intake & Output: Intake and Output for Last 24 Hours 04/08/25 04/09/25 04/10/25 23:59 23:59 23:59 Intake Total 2599.20 / 2605.95 221.00 / 221.00 Output Total 85 / 495 760 / 760 Balance 2514.20 / 2110.95 -539.00 / -539.00 Lab / Micro Data 04/10/25 04:58 04/10/25 04:58 Labs: Laboratory Results - last 24 hr 04/09/25 07:01: Activated Clotting Time 124 04/09/25 07:59: Activated Clotting Time 314 H 04/09/25 08:35: Activated Clotting Time 245 H 04/09/25 14:35: Sodium 142, Potassium 3.7, Chloride 110 H, Carbon Dioxide 19.4 L, Anion Gap 12, BUN19, Creatinine 0.65 L, Estim Creat Clear Calc 64.66, Est GFR(MDRD) Non-Af 93, BUN/Creatinine Ratio 29.1 H, Glucose 145 H, Calcium 9.1 04/10/25 04:58: WBC 16.8 H, RBC 3.92 L, Hgb 12.1, Hct 35.4 L, MCV 90.3, MCH 30.9, MCHC 34.2, RDW Std Deviation 52.6 H, RDW Coeff of Jennifer 15.9 H, Plt Count 301, MPV 10.2, Immature Gran % (Auto) 0.400, Neut % (Auto) 88.1 H, Lymph % (Auto) 5.7 L, Dare % (Auto) 5.0, Eos % (Auto) 0.4, Baso % (Auto) 0.4, Absolute Neuts (auto) 14.8 H, Absolute Lymphs (auto) 0.96, Nucleated RBC % 0, Sodium 139,Potassium 3.5, Chloride 109 H, Carbon Dioxide 20.3 L, Anion Gap 10, BUN 17, Creatinine 0.68 L, Estim Creat Clear Calc 64.66, Est GFR (MDRD) Non-Af 92, BUN/Creatinine Ratio 25.4 H, Glucose 111 H, Calcium 8.8 Radiography Diagnostic Testing: Radiology Impression Brain CT 04/09/25 14:10 IMPRESSION: No acute intracranial finding. Reading Location: [id number] Neck CTA 04/09/25 14:12 IMPRESSION: 1. Status post left carotid endarterectomy with surgical clips and indwelling surgical drain. 2. Interval improvement in the prior severe left carotid bulb and ICA stenosis. Unchanged severe stenosis of the right ICA just distal to its origin. 3. No large vessel occlusion is visualized. Reading Location: [facility] Physical Exam Const alert, oriented x3 and no apparent distress General Appearance: cooperative and comfortable HEENT normocephalic, head/scalp atraumatic, hearing grossly normal bilaterally, external ears normal and external nose normal Eyes EOMs intact bilaterally General Eye: normal appearance of both eyes Neck General: normal visual inspection and trachea midline Resp normal respiratory effort, normal air movement, no retractions and no use of accessory muscles Effort and Inspection: able to speak in complete sentences; Negative for labored, grunting or stridor Cardio regular rate and regular rhythm Extremity normal to inspection, full ROM and no clubbing, cyanosis or edema General Extremity: normal exam except as noted Skin no rashes or lesions noted Trauma: no lacerations or abrasions Neuro oriented x3, CN's II-XII intact bilaterally, moves all extremities, no focal motor deficits and no sensory deficits noted Speech: speech normal Psych mental status grossly normal, thought process normal, cooperative, affect normal, speech normal andactivity/motor behavior normal Appearance: grossly normal Attitude: calm and engaged Activity / Motor Behavior: appropriate eye contact Speech: normal speech Assessment & Plan Assessment/Plan (1) Carotid stenosis, bilateral: PLAN: She is POD#1 s/p L CEA. ABIODUN drain removed this morning, she tolerated this well. The incision site is satisfactory in appearance, no hematoma. Her prior mild R facial droop and R facial numbness/paresthesias have fully resolved, do feel this was secondary to reperfusion. At present, her BP is improved but still requiring PRNs this morning. BP will need to be well- controlled with systolics <140 on oral regimen prior to discharge home. She was quite hypertensive preoperatively, so do not feel her current hypertension is mediated by surgery; hospitalist was consulted for assistance managing her HTN and their assistance is appreciated. Plan for ambulation with nursing or PT later this morning or this afternoon. Discharge will be pending stability of her blood pressures through the day. 04/10/25 0959 Cosigner Signature (if applicable): 04/10/25 1216 CC: ~ Signed [facility]06-09-2025 Consult note Author Amos Fontiane [facility] Note Date/Time April 09, 2025 7:22p m [facility] Medical Records Department [address] [place] [address] Consultation - Hospitalist 04/09/25 5675 MR#: [id number] Acct: [id number] Name: ELISABETH WILDE Rep #:[id number] : 1950 75 From: Amos sarah DO PCP: Amanda Bahena PA-C Status:ADM I N Location: ICU ICU06-1 Assessment & Plan Assessment/Plan (1) Carotid stenosis, bilateral: PLAN: Plan Patient is a 75-year-old female who presented to [facility] on 04/09/25 for planned left carotid endarterectomy procedure. Medicine consulted postoperatively for medical management. 1. Bilateral carotid stenosis ? Vascular surgery primary. S/p left carotid endarterectomy procedure with Dr. Sumner on 04/09. Tolerated procedure well, no intraoperative complications. Continue aspirin and Plavix. Pain control and further management per vascular surgery. 2. Right-sided facial droop with numbness/tingling, improving ? Vascular surgery primary as above. Developed right-sided facial droop with numbness/tingling postoperatively. CT brain unremarkable and CTA neck unchangedsevere stenosis of the right ICA just distal to its origin. Per vascular, most consistent with reperfusion issue that is improving with tighter blood pressure control and elevating head of the bed. Continue blood pressure treatment as noted below. 3. Hypertension ? Hypertensive postoperatively up to the 200s systolic. Per vascular, goal BP is 120-140 systolic. Continue nitroglycerin drip. Resume home clonidine, hydrochlorothiazide and Toprol. 4. Mild hypoxia in setting of asthma/COPD overlap syndrome ? Not on home oxygen. Requiring 2 L nasal cannula postoperatively to maintain appropriate oxygen saturations. Presume secondary to anesthesia and shallow breaths in setting of recent procedure, not in acute exacerbation. Continue home inhalers. Wean supplemental oxygen as able. 5. Hypothyroidism ? Continue home Synthroid. 6. Class I obesity ? BMI 33 on admit. Encouraged weight loss. Complicates hospital course, care and prognosis. 7. Former tobacco abuse ? Encouraged continued cessation. DVT prophylaxis: Lovenox per vascular surgery Total clinical time spent by myself addressing the patient's medical issues, reviewing all the data, and collaborating with patient's care team: 50 minutes. HPI Consult Data Date of Consult: 04/09/25 HPI Narrative Reason for Consultation: Postoperative medical management HPI Narrative: ELISABETH WILDE, is a 75 F who presented to [facility] on 04/09/2025 for planned left carotid endarterectomy [...] She denied any other acute concerns currently. [facility] Medical History Wears glasses Post-menopausal Anxiety [...] mg tablet 25 mg PO DAILY BP 12/1804/08/25 07:00 History ipratropium 0.5 mg-albuterol 3 mg 3 ml inhalation Q4H PRN PRN Sob 03/13/19 03/19/19 History (2.5 mg base)/3 mL nebulization &/Or Wheezing soln albuterol sulfate 90 mcg/actuation 2 puff inhalation Q 4H PRN 08/24/23 Unknown Rx aerosol inhaler (Ventolin HFA) shortness of breath or wheezing #8.5 grams cetirizine 10 mg tablet (Zyrtec) 10 mg PO DAILY PRN al lergy symptoms 08/24/23 04/08/25 07:00 History naproxen 500 mg tablet 500 mg PO BID PRN pain 08/2404/07/25 12:00 History levothyroxine 150 mcg tablet 150 mcg PO QDAY THYROID 0 02/14/24 04/09/25 04:30 History (Synthroid) fluticasone propionate 230 2 inh inhalation BID ASTHMA #1 ea 02/13/25 04/09/25 04:30 Rx mcg-salmeterol 21 mcg/actuation HFA inhaler (Advair HFA) clonidine HCl 0.1 mg tablet 0.1 mg PO BID HTN #60 tabs 02/27/25 04/09/25 04:30 Rx aspirin 81 mg tablet,delayed 81 mg PO DAILY SUPPLEMENT #360 tabs 03/01/25 04/09/25 04:30 Rx release (Adult Aspirin Regimen) clopidogrel 75 mg tablet (Plavix) 75 mg PO DAILY BLOOD THINNER #30 03/01/25 04/09/25 04:30 Rx tabs metoprolol succinate 50 mg 25 mg PO BID BP 03/01/25 04:30 History tablet,extended release 24 hr budesonide-formoterol HFA 160 2 puff inhalation BID THMA 03/20/25 04/09/25 04:30 History mcg-4.5 mcg/actuation aerosol inhaler montelukast 10 mg tablet 10 mg PO QPM ASTHMA 04/09/25 04/08/25 17:00 History Allergy/AdvReac Type Severity Reaction Status Date / Time shellfish derived Allergy Anaphylaxis Verified 04/09/25 06:16 Iodinated Contrast Media AdvReac Intermediate Rash Verified 04/09/25 06:16 acetaminophen (From [place]) AdvReac Constipatio Verified 04/09/25 06:16 n hydrocodone (From [place]) AdvReac Constipatio Verified 04/09/25 06:16 n levofloxacin [...] not use ROS Constitutional Constitutional: Denies chills, fatigue, fever(s) or weakness Eyes Eyes: Denies change in vision Cardiovascular Cardiovascular: Denies chest pain Respiratory/Chest Respiratory/Chest: Denies shortness of breath at rest Gastrointestinal Gastrointestinal: Denies abdominal pain Musculoskeletal Musculoskeletal: Denies arthralgias or myalgias Neurologic Neurologic: Reports numbness and tingling; Denies dizziness, focal weakness or headache(s) Physical Exam Const alert, oriented x3 and no apparent distress Constitutional Narrative: Pleasant elderly female, class I obesity, mildly fatigued appearing, otherwise sitting back comfortably in bed, conversing normally, in no acute distress. General Appearance: cooperative and comfortable HEENT normocephalic, head/scalp atraumatic, hearing grossly normal bilaterally, nasal mucous membranes and turbinates normal and moist oral mucous membranes Eyes PERRL, EOMs intact bilaterally and conjunctivae normal Neck full ROM Neck Narrative: Large bandage noted on left side of neck with some dried blood noted. Chest inspection of chest normal Resp normal respiratory effort, normal air movement, no use of accessory muscles and clear to auscultation bilaterally Cardio regular rate, regular rhythm, no murmurs and peripheral pulses 2+ throughout GI normal to inspection, nondistended, normoactive bowel sounds, soft to palpation,non-tender and non-distended Back/Spine normal ROM Extremity normal to inspection, full ROM and no pedal edema Skin no rashes or lesions noted Neuro oriented x3, moves all extremities and no focal motor deficits Neuro Narrative: Very minor right sided facial droop noted. Mild right sided facial numbness/tingling reported. Speech: speech normal Motor Exam: strength 5/5 throughout Psych mental status grossly normal Lab / Micro Data 03/21/25 11:27 04/09/25 14:35 Labs: Laboratory Results - last 24 hr 04/09/25 07:01: Activated Clotting Time 124 04/09/25 07:59: Activated Clotting Time 314 H 04/09/25 08:35: Activated Clotting Time 245 H 04/09/25 14:35: Sodium 142, Potassium 3.7, Chloride 110 H, Carbon Dioxide 19.4 L, Anion Gap 12, BUN 19, Creatinine 0.65 L, Estim Creat Clear Calc 64.66, Est GFR(MDRD) Non-Af 93, BUN/Creatinine Ratio 29.1 H, Glucose 145 H, Calcium 9.1 Charges/Coding Visit Charges Inpatient E&M: 09689 Subs Hosp L3 04/09/251921 <Electronically signed by Amos Fontaine DO> Cosigner Signature (if applicable): CC: LORNA Bahena; Dr. Papo Sumner MD~ Signed [facility] Work Phone: 1(933) 128-216006-09-2025 Consult note [facility] Medical Records Department [address] [place] [address] Consultation - Hospitalist 04/09/25 1535 MR#: [id number] Acct: [id number] Name: ELISABETH WILDE Rep #:[id number] : 1950 75 From: Amos sarah DO PCP: Amanda Bahena PA-C Status:ADM I N Location: ICU ICU06-1 Assessment & Plan Assessment/Plan (1) Carotid stenosis, bilateral: PLAN: Plan Patient is a 75-year-old female who presented to [facility] on 04/09/25 for planned left carotid endarterectomy procedure. Medicine consulted postoperatively for medical management. 1. Bilateral carotid stenosis ? Vascular surgery primary. S/p left carotid endarterectomy procedure with Dr. Sumner on 04/09. Tolerated procedure well, no intraoperative complications. Continue aspirin and Plavix. Pain control and further management per vascular surgery. 2. Right-sided facial droop with numbness/tingling, improving ? Vascular surgery primary as above. Developed right-sided facial droop with numbness/tingling postoperatively. CT brain unremarkable and CTA neck unchangedsevere stenosis of the right ICA just distal to its origin. Per vascular, most consistent with reperfusion issue that is improving with tighter blood pressure control and elevating head of the bed. Continue blood pressure treatment as noted below. 3. Hypertension ? Hypertensive postoperatively up to the 200s systolic. Per vascular, goal BP is 120-140 systolic. Continue nitroglycerin drip. Resume home clonidine, hydrochlorothiazide and Toprol. 4. Mild hypoxia in setting of asthma/COPD overlap syndrome ? Not on home oxygen. Requiring 2 L nasal cannula postoperatively to maintain appropriate oxygen saturations. Presume secondary to anesthesia and shallow breaths in setting of recent procedure, not in acute exacerbation. Continue home inhalers. Wean supplemental oxygen as able. 5. Hypothyroidism ? Continue home Synthroid. 6. Class I obesity ? BMI 33 on admit. Encouraged weight loss. Complicates hospital course, care and prognosis. 7. Former tobacco abuse ? Encouraged continued cessation. DVT prophylaxis: Lovenox per vascular surgery Total clinical time spent by myself addressing the patient's medical issues, reviewing all the data, and collaborating with patient's care team: 50 minutes. HPI Consult Data Date of Consult: 04/09/25 HPI Narrative Reason for Consultation: Postoperative medical management HPI Narrative: ELISABETH WILDE, is a 75 F who presented to [facility] on 04/09/2025 for planned left carotid endarterectomy procedure. Medicine consulted postoperatively for medical management. Patient had procedure done with Dr. Sumner this morning, no intraoperative complications noted. Shortly before leaving the recovery room she developed right facial numbness and right facial droop. She wasevaluated by Dr. Sumner for this. She was [...] She denied any other acute concerns currently. [facility] Medical History Wears glasses Post-menopausal Anxiety [...] mg tablet 25 mg PO DAILY BP 12/1804/08/25 07:00 History ipratropium 0.5 mg-albuterol 3 mg 3 ml inhalation Q4H PRN PRN Sob 03/13/19 03/19/19 History (2.5 mg base)/3 mL nebulization &/Or Wheezing soln albuterol sulfate 90 mcg/actuation 2 puff inhalation Q 4H PRN 08/24/23 Unknown Rx aerosol inhaler (Ventolin HFA) shortness of breath or wheezing #8.5 grams cetirizine 10 mg tablet (Zyrtec) 10 mg PO DAILY PRN al lergy symptoms 08/24/23 04/08/25 07:00 History naproxen 500 mg tablet 500 mg PO BID PRN pain 08/2404/07/25 12:00 History levothyroxine 150 mcg tablet 150 mcg PO QDAY THYROID 0 02/14/24 04/09/25 04:30 History (Synthroid) fluticasone propionate 230 2 inh inhalation BID ASTHMA #1 ea 02/13/25 04/09/25 04:30 Rx mcg-salmeterol 21 mcg/actuation HFA inhaler (Advair HFA) clonidine HCl 0.1 mg tablet 0.1 mg PO BID HTN #60 tabs 02/27/25 04/09/25 04:30 Rx aspirin 81 mg tablet,delayed 81 mg PO DAILY SUPPLEMENT #360 tabs 03/01/25 04/09/25 04:30 Rx release (Adult Aspirin Regimen) clopidogrel 75 mg tablet (Plavix) 75 mg PO DAILY BLOOD THINNER #30 03/01/25 04/09/25 04:30 Rx tabs metoprolol succinate 50 mg 25 mg PO BID BP 03/01/25 04:30 History tablet,extended release 24 hr budesonide-formoterol HFA 160 2 puff inhalation BID THMA 03/20/25 04/09/25 04:30 History mcg-4.5 mcg/actuation aerosol inhaler montelukast 10 mg tablet 10 mg PO QPM ASTHMA 04/09/25 04/08/25 17:00 History Allergy/AdvReac Type Severity Reaction Status Date / Time shellfish derived Allergy Anaphylaxis Verified 04/09/25 06:16 Iodinated Contrast Media AdvReac Intermediate Rash Verified 04/09/25 06:16 acetaminophen (From [place]) AdvReac Constipatio Verified 04/09/25 06:16 n hydrocodone (From [place]) AdvReac Constipatio Verified 04/09/25 06:16 n levofloxacin [...] not use ROS Constitutional Constitutional: Denies chills, fatigue, fever(s) or weakness Eyes Eyes: Denies change in vision Cardiovascular Cardiovascular: Denies chest pain Respiratory/Chest Respiratory/Chest: Denies shortness of breath at rest Gastrointestinal Gastrointestinal: Denies abdominal pain Musculoskeletal Musculoskeletal: Denies arthralgias or myalgias Neurologic Neurologic: Reports numbness and tingling; Denies dizziness, focal weakness or headache(s) Physical Exam Const alert, oriented x3 and no apparent distress Constitutional Narrative: Pleasant elderly female, class I obesity, mildly fatigued appearing, otherwise sitting back comfortably in bed, conversing normally, in no acute distress. General Appearance: cooperative and comfortable HEENT normocephalic, head/scalp atraumatic, hearing grossly normal bilaterally, nasal mucous membranes and turbinates normal and moist oral mucous membranes Eyes PERRL, EOMs intact bilaterally and conjunctivae normal Neck full ROM Neck Narrative: Large bandage noted on left side of neck with some dried blood noted. Chest inspection of chest normal Resp normal respiratory effort, normal air movement, no use of accessory muscles and clear to auscultation bilaterally Cardio regular rate, regular rhythm, no murmurs and peripheral pulses 2+ throughout GI normal to inspection, nondistended, normoactive bowel sounds, soft to palpation,non-tender and non-distended Back/Spine normal ROM Extremity normal to inspection, full ROM and no pedal edema Skin no rashes or lesions noted Neuro oriented x3, moves all extremities and no focal motor deficits Neuro Narrative: Very minor right sided facial droop noted. Mild right sided facial numbness/tingling reported. Speech: speech normal Motor Exam: strength 5/5 throughout Psych mental status grossly normal Lab / Micro Data 03/21/25 11:27 04/09/25 14:35 Labs: Laboratory Results - last 24 hr 04/09/25 07:01: Activated Clotting Time 124 04/09/25 07:59: Activated Clotting Time 314 H 04/09/25 08:35: Activated Clotting Time 245 H 04/09/25 14:35: Sodium 142, Potassium 3.7, Chloride 110 H, Carbon Dioxide 19.4 L, Anion Gap 12, BUN19, Creatinine 0.65 L, Estim Creat Clear Calc 64.66, Est GFR(MDRD) Non-Af 93, BUN/Creatinine Ratio 29.1 H, Glucose 145 H, Calcium 9.1 Charges/Coding Visit Charges Inpatient E&M: 19168 Subs Hosp L3 04/09/251921 Cosigner Signature (if applicable): CC: LORNA Bahena; Dr. Papo Sumner MD~ Signed [facility]06-09-2025 Progress note Author Papo Sumner [facility] Note Date/Time April 09, 2025 4:45p m [facility] Medical Records Department [address] [place] [address] Progress Note - Surgery 04/09/25 1642 MR#: [id number] Acct: [id number] Name: ELISABETH WILDE Rep #:[id number] : 1950 75 From: Papo Sumner MD PCP: Amanda Bahena PA-C Status:ADM I N Location: ICU ICU04-01 Subjective Subjective Called to see patient for newly developed a right facial droop and numbness. She initially had some minor sensory disturbance in her right cheek just that she was preparing to leave the recovery room and shortly after she was within the intensive care unit she was noted to have a right lower facial droop. Her numbness has partially resolved and is now inferior on her face adjacent to her lip though she continues to have some subtle right lower facial droop. She has a mild headache and otherwise her neurologic exam is normal with completely intact motor and sensory in the bilateral upper and lower extremities. The patient has been hypertensive and is currently on a nitro drip being titrated to goal blood pressure. She also is on multiple home medications whichshe will be receiving this evening as well as IV as needed labetalol and hydralazine. During assessment the patient continues to have right facial droophowever we placed the patient as head of bed at 60 degrees and within several minutes her facial droop began to improve. We also are improving her blood pressure control now with systolics in a satisfactory range of mostly 120-140. Given the lateralizing neurologic deficit that improves with head elevation and blood pressure control this is likely reperfusion however to ensure that we do not miss any other potential causes the patient will go for CT head and CTA headand neck. The patient has a contrast allergy so she will be premedicated prior to her scan. Objective Data Objective Data Vital Signs: Vital Signs Temp Pulse Resp BP Pulse Ox O2 Del Method O2 Flow Rate 98.7 F 64 16 144/59 H 95 Nasal Cannula 2 04/09/25 12:18 04/09/25 13:51 04/09/25 13:51 04/09/25 12:18 04/09/25 13:51 04/09/25 13:51 04/09/25 13:51 Oxygen Flow Rate (L/min) 2 Oxygen Delivery Method Nasal Cannula Weight: 187 lb 2.759 oz Body Mass Index (BMI) 33.1 Intake & Output: Intake and Output for Last 24 Hours 04/07/25 04/08/25 04/09/25 23:59 23:59 23:59 Intake Total Output Total 50 / 50 Balance 15 Lab / Micro Data 03/21/25 11:27 04/09/25 14:35 Labs: Laboratory Results - last 24 hr 04/09/25 07:01: Activated Clotting Time 124 04/09/25 07:59: Activated Clotting Time 314 H 04/09/25 08:35: Activated Clotting Time 245 H 04/09/25 14:35: Sodium 142, Potassium 3.7, Chloride 110 H, Carbon Dioxide 19.4 L, Anion Gap 12, BUN 19, Creatinine 0.65 L, Estim Creat Clear Calc 64.66, Est GFR(MDRD) Non-Af 93, BUN/Creatinine Ratio 29.1 H, Glucose 145 H, Calcium 9.1 Radiography Diagnostic Testing: Radiology Impression Brain CT 04/09/25 14:10 IMPRESSION: No acute intracranial finding. Reading Location: [facility] 04/09/25 0305 <Electronically signed by Papo Sumner MD> Cosigner Signature (if applicable): CC: ~ Signed [facility] Work Phone: 1(305) 608-122106-09-2025 Radiology Diagnostic study note [facility] Imaging Services [address] [place], [place] [address] CTA Neck W/WO Contrast MR#: [id number] Acct: [id number] Name: ELISABETH WILDE Rep #: [id number] : 1950 F 75 From: Lacy Burton MD PCP: Amanda Bahena PA-C Status: ADM I N Study:CTA Neck W/WO Contrast Date of Exam: 04/09/25 Exam# [id number] Ordering Dr: Erika Sumner MD PROCEDURE: CTA NECK W/WO CONTRAST [...] surgical clips and indwelling surgical drain. There isscattered subcutaneous air, compatible with postoperative status. Interval improvement in the prior severe left carotid bulb and ICA stenosis. Unchanged severe stenosis just distal to the right ICA origin, stable since prior examination. The bilateral vertebral arteries are widely patent. The visualized bilateral anterior, middle and posterior cerebral arteries are widely patent. origin of the right SCHEDULE MAKER. Other findings: Cervical spondylosis and diffuse osseous [...] large vessel occlusion is visualized. Reading Location: [id number] CC: LORNA Bahena; Dr. Papo Sumner MD ~ Induction Heating Equipment Setter: Signed [facility]06-09-2025 Progress note [facility] Medical Records Department [address] [place] [address] Progress Note - Surgery 04/09/25 1642 MR#: [id number] Acct: [id number] Name: ELISABETH WILDE Rep #:[id number] : 1950 75 From: Papo Sumner MD PCP: Amanda Bahena PA-C Status:ADM I N Location: ICU ICU06-1 Subjective Subjective Called to see patient for newly developed a right facial droop and numbness. She initially had someminor sensory disturbance in her right cheek just that she was preparing to leave the recovery roomand shortly after she was within the intensive care unit she was noted to have a right lower facialdroop. Her numbness has partially resolved and is now inferior on her face adjacent to her lip though she continues to have some subtle right lower facial droop. She has a mild headache and otherwiseher neurologic exam is normal with completely intact motor and sensory in the bilateral upper and lower extremities. The patient has been hypertensive and is currently on a nitro drip being titrated to goal blood pressure. She also is on multiple home medications whichshe will be receiving this evening as well as IV as needed labetalol and hydralazine. During assessment the patient continues to have right facial d roophowever we placed the patient as head of bed at 60 degrees and within several minutes her facial droop began to improve. We also are improving her blood pressure control now with systolics in a satisfactory range of mostly 120- 140. Given the lateralizing neurologic deficit that improves with head elevation and blood pressure control this is likely reperfusion however to ensure that we do not miss any other potential causes the patient will go for CT head and CTA headand neck. The patient has a contrast allergy so she will be premedicated prior to her scan. Objective Data Objective Data Vital Signs: Vital Signs Temp Pulse Resp BP Pulse Ox O2 Del Method O2 Flow Rate 98.7 F 64 16 144/59 H 95 Nasal Cannula 2 04/09/25 12:18 04/09/25 13:51 04/09/25 13:51 04/09/25 12:18 04/09/25 13:51 04/09/25 13:51 04/09/25 13:51 Oxygen Flow Rate (L/min) 2 Oxygen Delivery Method Nasal Cannula Weight: 187 lb 2.759 oz Body Mass Index (BMI) 33.1 Intake & Output: Intake and Output for Last 24 Hours 04/07/25 04/08/25 04/09/25 23:59 23:59 23:59 Intake Total 2003.15 / 2003.15 Output Total 50 / 50 Balance 1953.15 / 1953.15 Lab / Micro Data 03/21/25 11:27 04/09/25 14:35 Labs: Laboratory Results - last 24 hr 04/09/25 07:01: Activated Clotting Time 124 04/09/25 07:59: Activated Clotting Time 314 H 04/09/25 08:35: Activated Clotting Time 245 H 04/09/25 14:35: Sodium 142, Potassium 3.7, Chloride 110 H, Carbon Dioxide 19.4 L, Anion Gap 12, BUN19, Creatinine 0.65 L, Estim Creat Clear Calc 64.66, Est GFR(MDRD) Non-Af 93, BUN/Creatinine Ratio 29.1 H, Glucose 145 H, Calcium 9.1 Radiography Diagnostic Testing: Radiology Impression Brain CT 04/09/25 14:10 IMPRESSION: No acute intracranial finding. Reading Location: [id number] 04/09/25 1645 Cosigner Signature (if applicable): CC: ~ Signed [facility]06-09-2025 Procedure note [facility] Medical Records Department [address] [place] [address] Operative Report 04/09/25 1047 MR#: [id number] Acct: [id number] Name: ELISABETH WILDE Rep #:[id number] : 1950 75 From: Papo Sumner MD PCP: Amanda Bahena PA-C Status:ADM I N Location: ICU [place] [address] Operative Report (Standard) Operative Information Date of Procedure: 04/09/25 Pre-Operative Diagnosis: left carotid stenosis Post-Operative Diagnosis: same Surgery/Procedure Performed: left carotid endarterectomy bearing inspector: Yes Meter Tester Polyphase: [place] Tasks completed by food and beverage assistant manager: Opening, Closing, Opening & closing, Hemostasis: Tie, Hemostasis: Electrocautery and Retracting [...] She presents now for left carotid endarterectomy withplanned staged right carotid endarterectomy at a later date. Description of procedure: Upon obtaining informed consent and verification correct patient procedure site she was taken to the operating where she was placed under general anesthesia. She was then positioned prepped and draped in usual sterile fashion and timeout was performed. Oblique incision wasmade at the anterior border left sternocleidomastoid and Bovie electrocautery used to dissect down to the subcutaneous tissue to the level of the platysma. The platysma was divided and self-retainingretractors were put in position exposingthe anterior border of the sternocleidomastoid. Bovie was then used to mobilizethe muscle along with anterior border allowing posterolateral retraction and exposing the carotid sheath. Sharp dissection was then used dissect free the jugular vein with multipleanterior branches including the facial vein identified, ligated with silk ties and divided. The vein was then retracted laterallyexposing the carotid vessels. Sharp dissection was used to dissect free the proximal common carotid artery with care taken to identify and protect the vagusnerve which was in his normal anatomic position. The vessel was then dissected free circumferentially and a right angle used to place a vessel loop. Next sharp section was used to dissect free the distal internal carotid artery beyondthe palpable and visible plaque with care taken [...] artery and extended with Guillen scissors onto theinternal carotid arterybeyond the area of plaque. A 10 [place] shunt was then placed first distally in the internal carotid artery allowed to backbleed before placing proximally in the common carotid artery. The shunt was interrogated with Doppler and found to be patent with low resistance signal. We then performed her endarterectomy with a freer elevator with satisfactory endpoint distallyon the internal carotid artery and eversion endarterectomy of the external carotid artery. The distal endpoint was tacked with 7-0 Prolene interrupted sutures andthe lumen flushed with heparinized saline to clear of any potential debris. A bovine pericardial patch was then secured in position usinga 6-0 Prolene in a running fashion. Prior [...] flow into the internal carotid artery. Once theclamps were removed satisfactory hemostasis was noted and the vessels were interrogated with Doppler. The internal carotid artery was patent with low resistance signal in the external carotid arteries patent with appropriate signal. Heparin was then reversed with protamine and Hemoblast topical hemostatic applied after which satisfactory stasis was observed. A 19 [place] channel ABIODUN was then placed via stab incision and incision closed with 2-0 Vicryl, 3-0 Vicryl, 4 Monocryl and Dermabond for the skin. At the conclusion ofthe case the patient was wake from anesthesia moving all extremities to command with cranial nerves intact. She was then taken to the recovery room with anticipate admission to the intensive care unit for hemodynamic and neurologic monitoring. Surgical Findings: see above Complications Complications: No 04/09/25 1641 Cosigner Signature (if applicable): CC: LORNA Bahena; Dr. Amos Fontaine DO; Dr. Papo Sumner MD~ Signed [facility]06-09-2025 Radiology Diagnostic study note [facility] Imaging Services [address] [place] [address] STROKE Brain/Head without Cont MR#: [id number] Acct: [id number] Name: ELISABETH WILDE Rep #: [id number] : 1950 F 75 From: Lacy Burton MD PCP: Amanda Bahena PA-C Status: ADM I N Study:STROKE Brain/Head without Cont Date of Exam: 04/09/25 Exam# [id number] Ordering Dr: Erika Sumner MD EXAM: STROKE BRAIN/HEAD WITHOUT CONT [...] IMPRESSION: No acute intracranial finding. Reading Location: [id number] CC: LORNA Bahena; Dr. Papo Sumner MD ~ Induction Heating Equipment Setter: Signed [facility]06-09-2025 Consult note Author Matt Ibarra [facility] Note Date/Time April 09, 2025 11:47 am [facility] Medical Records Department [address] [place] [address] Anesthesia Postop Eval II 04/09/25 1147 MR#: [id number] Acct: [id number] Name: ELISABETH WILDE Rep #:[id number] : 1950 75 From: Matt Ibarra MD PCP: Amanda Bahena PA-C Status:ADM I N Y Race: C Location: ICU ICU06 - Anesthesia Postop Eval I Sum Postop Eval Completion status Anesthesia document: Postop Eval 1 completed: Yes Anesthesia Postop Eval I Summary Anesthesia Postop Eval I Summary: Anesthesia Postop Eval I: Assessment Summary Airway patent Yes 04/09/25 11:12 [email or web address] Spontaneous unlabored Yes 04/09/25 11:12 [email or web address] respirations Mental status Awake 04/09/25 11:12 [email or web address] nausea No 04/09/25 11:12 [email or web address] Vomiting No 04/09/25 11:12 [email or web address] Anesthesia Postop Eval I: Fluid Summary Crystalloid volume administer 1,600 04/09/25 11:12 [email or web address] (ml) Colloids volume administered ( ml) Blood Product volume administered (ml) Total IV fluid infused 1,600 04/09/25 11:12 [email or web address] Anesthesia Postop Eval I: Summary Notes Anesthesia Complication No 04/09/25 11:12 [email or web address] Anesthesia Complication Comment: Post-operative progress note Anesthesia: Postop Eval II Evaluation Mental status: Awake Pain Level: 1 nausea: No Vomiting: No 04/09/25 1146 <Electronically signed by Matt Ibarra MD > Date _ Matt Ibarra MD [facility] Signature: Date CC: ~ Signed [facility] Work Phone: 1(835) 768-382106-09-2025 Consult note Author Herson Oshea [facility] Note Date/Time April 09, 2025 11:12 am [facility] Medical Records Department [address] [facility] [place] [address] Anesthesia Postop Eval I 04/09/25 1111 MR#: [id number] Acct: [id number] Name: ELISABETH WILDE Rep #:[id number] : 1950 75 From: Herson BRADLEY PCP: Amanda Bahena PA-C Status:ADM I N Y Race: C Location: [facility]INP AC- TBA-1 Anesthesia: Postop Eval I Current Vital Signs [...] Postop Eval 1 completed: Yes 04/09/25 1112 <Electronically signed by Herson Oshea CRNA> Date _ Herson Oshea CRNA Cosigner Signature: Date CC: ~ Signed [facility] Work Phone: 1([phone]) [phone] Consult note [facility] Medical Records Department [address] [place] [address] Anesthesia Postop Eval II 04/09/25 1147 MR#: [id number] Acct: [id number] Name: ELISABETH WILDE Rep #:[id number] : 1950 75 From: Matt Ibarra MD PCP: Amanda Bahena PA-C Status:ADM I N Y Race: C Location: ICU ICU06 - Anesthesia Postop Eval I Sum Postop Eval Completion status Anesthesia document: Postop Eval 1 completed: Yes Anesthesia Postop Eval I Summary Anesthesia Postop Eval I Summary: Anesthesia Postop Eval I: Assessment Summary Airway patent Yes 04/09/25 11:12 [email or web address] Spontaneous unlabored Yes 04/09/25 11:12 [email or web address] MAN.ARI respirations Mental status Awake 04/09/25 11:12 [email or web address] MAN.KRISHANLOU nausea No 04/09/25 11:12 KNOCKDOWN [email or web address] Vomiting No 04/09/25 11:12 [email or web address] Anesthesia Postop Eval I: Fluid Summary Crystalloid volume administer 1,600 04/09/25 11:12 [email or web address] (ml) Colloids volume administered ( ml) Blood Product volume administered (ml) Total IV fluid infused 1,600 04/09/25 11:12 KNOCKDOWN MAN.KRISHANLOU Anesthesia Postop Eval I: Summary Notes Anesthesia Complication No 04/09/25 11:12 [email or web address] [email or web address] Anesthesia Complication Comment: Post-operative progress note Anesthesia: Postop Eval II Evaluation Mental status: Awake Pain Level: 1 nausea: No Vomiting: No 04/09/25 1147 > Date _ Matt Stacey Briceno Signature: Date CC: ~ Signed [facility]06-09-2025 Consult note [facility] Medical Records Department [address] [place] [address] Anesthesia Postop Eval I 04/09/25 1111 MR#: [id number] Acct: [id number] Name: ELISABETH WILDE Rep #:[id number] : 1950 75 From: Herson BRADLEY PCP: Amanda Bahena PA-C Status:ADM I N Y Race: C Location: [place] [address] Anesthesia: Postop Eval I Current Vital Signs [...] Postop Eval 1 completed: Yes 04/09/25 1112 KNOCKDOWN MAN> Date _ Herson Oshea CRNA Cosigner Signature: Date CC: ~ Signed [facility]06-09-2025 History and physical note Author Papo Sumner [facility] Note Date/Time April 09, 2025 7:27a m [facility] Medical Records Department [address] [place] [address] History & Physical Exam 04/09/25724 MR#: [id number] Acct: [id number] Name: ELISABETH WILDE Rep #:[id number] : 1950 75 From: Papo Sumner MD PCP: Amanda Bahena PA-C Status:ADM I N Location: [place] [address] HPI - General General Date of Admission: 04/09/25 HPI Narrative ELISABETH WILDE, is a 75 F who presents with asymptomatic left carotid stenosis >70%. She is a candidate for either endart or TCAR and she has opted for the open surgical option. She presents now for left carotid endarterectomy. [facility] Medical History Wears glasses Post-menopausal Anxiety [...] mg tablet 25 mg PO DAILY BP 12/1804/08/25 07:00 History ipratropium 0.5 mg-albuterol 3 mg 3 ml inhalation Q4H PRN PRN Sob 03/13/19 03/19/19 History (2.5 mg base)/3 mL nebulization &/Or Wheezing soln albuterol sulfate 90 mcg/actuation 2 puff inhalation Q 4H PRN 08/24/23 Unknown Rx aerosol inhaler (Ventolin HFA) shortness of breath or wheezing #8.5 grams cetirizine 10 mg tablet (Zyrtec) 10 mg PO DAILY PRN al lergy symptoms 08/24/23 04/08/25 07:00 History naproxen 500 mg tablet 500 mg PO BID PRN pain 08/2404/07/25 12:00 History levothyroxine 150 mcg tablet 150 mcg PO QDAY THYROID 0 02/14/24 04/09/25 04:30 History (Synthroid) fluticasone propionate 230 2 inh inhalation BID ASTHMA #1 ea 02/13/25 04/09/25 04:30 Rx mcg-salmeterol 21 mcg/actuation HFA inhaler (Advair HFA) clonidine HCl 0.1 mg tablet 0.1 mg PO BID HTN #60 tabs 02/27/25 04/09/25 04:30 Rx aspirin 81 mg tablet,delayed 81 mg PO DAILY SUPPLEMENT #360 tabs 03/01/25 04/09/25 04:30 Rx release (Adult Aspirin Regimen) clopidogrel 75 mg tablet (Plavix) 75 mg PO DAILY BLOOD THINNER #30 03/01/25 04/09/25 04:30 Rx tabs metoprolol succinate 50 mg 25 mg PO BID BP 03/01/25 04:30 History tablet,extended release 24 hr budesonide-formoterol HFA 160 2 puff inhalation BID THMA 03/20/25 04/09/25 04:30 History mcg-4.5 mcg/actuation aerosol inhaler montelukast 10 mg tablet 10 mg PO QPM ASTHMA 04/09/25 04/08/25 17:00 History Allergy/AdvReac Type Severity Reaction Status Date / Time shellfish derived Allergy Anaphylaxis Verified 04/09/25 06:16 Iodinated Contrast Media AdvReac Intermediate Rash Verified 04/09/25 06:16 acetaminophen (From [place]) AdvReac Constipatio Verified 04/09/25 06:16 n hydrocodone (From [place]) AdvReac Constipatio Verified 04/09/25 06:16 n levofloxacin [...] of breath at rest, shortness of breath with exertion or wheezing Gastrointestinal Gastrointestinal: Denies anorexia, change in stool character, constipation, diarrhea, melena or rectal bleeding Genitourinary Genitourinary: Denies dysuria or hematuria Musculoskeletal Musculoskeletal: Denies abnormal gait Integumentary Integumentary: Reports other Details: ; Denies erythema, non-healing lesions or wounds Neurologic Neurologic: Denies abnormal speech, focal weakness, headache(s), loss of vision,numbness, paresthesias or sensory deficit Hematologic/Lymphatic Hematologic/Lymphatic: Denies easy bleeding, easy bruising or lymphadenopathy Vital Signs Vital Signs Vital Signs: 04/09/25 06:20 04/09/25 06:20 04/09/25 06:41 Temperature 98.1 F 98.1 F Temperature Source Temporal Pulse Rate 71 71 Respiratory Rate 18 18 Respiratory Pattern Normal Blood Pressure 183/72 H 183/72 H Blood Pressure Mean 109 Blood Pressure Source Monitor Blood Pressure Position Sitting Blood Pressure Location Right Arm Pulse Ox 98 98 Oxygen Delivery Method Room Air Weight Weight: 178 lb 9.191 oz Body Mass Index (BMI) 30.6 Physical Exam Const alert, oriented x3, no apparent distress and healthy appearing General Appearance: cooperative; Negative for combative or lethargic Orientation / Consciousness: awake Exam Limitations: no limitations HEENT Head and Scalp: normocephalic and atraumatic Eyes EOMs intact bilaterally General Eye: normal appearance of both eyes Neck full ROM General: trachea midline Resp normal respiratory effort and no use of accessory muscles Effort and Inspection: Negative for labored, stridor or audible wheezes Cardio regular rate and regular rhythm Back/Spine Cervical Spine: cervical ROM normal Extremity full ROM, normal capillary refill and no clubbing, cyanosis or edema Skin no rashes or lesions noted and no wounds Neuro oriented x3, CN's II-XII intact bilaterally, no focal motor deficits and no sensory deficits noted Psych thought process normal, cooperative, affect normal, speech normal and activity/motor behavior normal Results Lab / Micro Data 03/21/25 11:27 03/21/25 11:27 Assessment & Plan Assessment/Plan (1) Carotid stenosis, bilateral: PLAN: -left carotid endarterectomy 04/09/25 0727 <Electronically signed by Papo Sumner MD> Cosigner Signature (if applicable): CC: LORNA Bahena; Dr. Papo Sumner MD~ Signed [facility] Work Phone: 1(244) 834-584106-09-2025 Consult note Author Matt Ibarra [facility] Note Date/Time April 09, 2025 6:42a m [facility] Medical Records Department [address] [place] [address] Pre-Anesthesia Evaluation 04/09/25 0641 MR#: [id number] Acct: [id number] Name: ELISABETH WILDE Rep #:[id number] : 1950 75 From: Matt Ibarra MD PCP: Amanda Bahena PA-C Status:ADM I N Y Race: C Location: [facility] AC- TBA-1 ASA Classification* ASA Classification ASA Classification: 3 Assessment & Plan Anesthesia* Anesthesia Assessment Anesthesia Assessment: Discussed sedation and/or anesthesia options, risks, benefits, and alternatives with patient/parents/legal guardian/POA. Questions invited. The patient/parents/legal guardian/POA seems to understand and agrees to proceedwith anesthesia plan. Reviewed the physical assessment, medical history, allergy history and patient home medications list prior to surgery/procedure/anesthetic and documented any changes. Performed airway and anesthesia risk assessments. Anesthesia Type Anesthesia Type: General (Thorndike pre op) Anesthesia Focused Assessment* Temperature: 98.1 F Pulse Rate: 71 Blood Pressure: 183/72 Respiratory Rate: 18 Pulse Ox: 98 Airway Assessment Mouth opens: >3 cm Mallampati Score: II Labs Anesthesia Preop lab: CBC WBC 9.2 K/mm3 (4.4-11.0) 03/21/25 11:03/21/25 RBC 4.84 M/mm3 (4.2-5.4) 03/21/25 11:03/21/25 Hgb 14.7 g/dL (12.0-15.0) 03/21/25 11:03/21/25 Hct 44.7 % (37-47) 03/21/25 11:03/21/25 Plt Count 358 K/mm3 (150-450) 03/21/25 11:03/21/25 CHEMISTRY Potassium 3.8 mmol/L (3.3-5.1) 03/21/25 11:03/21/25 Sodium 142 mmol/L (133-145) 03/21/25 11:03/21/25 BUN 24 mg/dL (4-19) H 03/21/25 11:03/21/25 Creatinine 0.83 mg/dL (0.70-1.20) 03/21/25 11:03/21/25 Glucose 99 mg/dL (70-99) 03/21/25 11:03/21/25 POC Glucose 81 mg/dL (70-110) 03/19/19 23:03 03/19/19 TSH 0.576 uIU/mL (0.300-4.200) 03/21/25 11:03/02 COAG PT 12.1 SECONDS (11.7-14.9) 03/20/19 04:05 Pre-Assessment Diagnosis/Proposed Procedure Planned Operative Procedure(s): LEFT CAROTID ENARTECTOMY Anesthesia History Anesthesia History - watch inspector final movement: Anesthesia History - watch inspector final movement Hx Hospitalization No 03/20/25 15:02 Any Problems With Anesthesia No 03/20/25 15:02 Cholinesterase deficiency No 03/20/25 15:02 You/Your Family Experience No 03/20/25 15:02 fever (hyperthermia) with Relationship Recent Exposure to Contagious No 04/09/25 06:20 Disease Does patient have nerve No 03/20/25 15:02 stimulator Patient instructed to have device shut off --Does patient have Pacemaker No 04/09/25 06:20 or ICD? When Was Last Pacemaker Check QUESTION #4 FULL TEXT: You/Your Family Experience fever (hyperthermia) with Anesthesia Last Oral Intake Last Oral intake: Last Oral Intake NPO since 04:30 04/09/25 06:20 Meds taken in AM with sips of Yes 04/09/25 06:20 water? Meds patient instructed to see med rec 04/09/25 06:20 take am of surgery PONV PONV - watch inspector final movement: PONV - watch inspector final movement Female Yes 03/20/25 15:02 HX of Motion Sickness Yes 03/20/25 15:02 HX of N/V After Surgery Yes 03/20/25 15:02 Non-Smoker Yes 03/20/25 15:02 Duration of Surgery greater No 03/20/25 15:02 than 60 minutes Number of Risk Factors 4 03/20/25 15:02 PONV Score Severe Risk 03/20/25 15:02 Height & Weight Height & Weight: Anesthesia: Height & Weight Height 5 ft 4 in 04/09/25 06:20 Weight: 81 kg 04/09/25 06:20 Body Mass Index (BMI) 30.6 04/09/25 06:20 Respiratory Assessment Respiratory Assessment - watch inspector final movement: Respiratory Tract Infection Hx - watch inspector final movement Hx Respiratory Tract Infection No 03/20/25 15:02 STOP Sleep Apnea STOP Sleep Apnea - watch inspector final movement: STOP Sleep Apnea - watch inspector final movement Hx Hypertension Yes 03/20/25 15:02 Hx Sleep [...] Tobacco Use History Tobacco Use History - watch inspector final movement: Tobacco Use History - watch inspector final movement Tobacco Use Smoking Status Former smoker 03/20/25 15:02 Hx Tobacco Use No 03/20/25 15:02 Years Smoking Packs Smoked per Day Smoking Cessation Date was Yes - quit smoking within 15 03/20/25 15:02 within the last 15 years years Hx Smoking Cessation Date Hx Smoking Cessation No 03/20/25 15:02 Counseling Hematologic Medial History Hematologic Hx - watch inspector final movement: Hematologic Medical Hx - medicare coordinator Hx of Blood Transfusion No 03/20/25 15:02 Hx of Transfusion in last 3 No 03/20/25 15:02 Months Date of Last Transfusion (if within last 3 months) Ever experience any problems No 03/20/25 15:02 with transfusion(s)? Specify any problems Hx of Preganancy in last 3 No 03/20/25 15:02 Months Nurse Filling Out Transfusion VLEHMAN 03/20/25 15:02 & Questions: Date: 03/20/25 03/20/25 15:02 Time: 15:13 03/20/25 15:02 Patient unable to answer at this time (ie. confused, unrespo /Reproduction History /Reproductive History - watch inspector final movement: /Reproductive Hx- watch inspector final movement Hx Now No 03/20/25 15:02 Gestational Age (in weeks): EDC: Hx Hx Para Hx Section SAB No 03/20/25 15:02 Active Medications Active Medications: Current Medications Generic Name Dose Route Start Last Admin Trade Name Freq PRN Reason Stop Dose Admin Cefazolin Sodium 2 gm/ Sodium 110 mls @ 150 mls/hr 04/09/25 07:30 Chloride IV 04/09/25 08:13 INTRAOP ONE Lactated Ringer's 1,000 mls @ 15 mls/hr 04/09/25 05:45 04/09/25 06:00 IV 15 mls/hr .Q48H SUJIT Administration PFSH Medical History Wears glasses Post-menopausal Anxiety Thyroid [...] mg tablet 25 mg PO DAILY BP 12/1804/08/25 07:00 History ipratropium 0.5 mg-albuterol 3 mg 3 ml inhalation Q4H PRN PRN Sob 03/13/19 03/19/19 History (2.5 mg base)/3 mL nebulization &/Or Wheezing soln albuterol sulfate 90 mcg/actuation 2 puff inhalation Q 4H PRN 08/24/23 Unknown Rx aerosol inhaler (Ventolin HFA) shortness of breath or wheezing #8.5 grams cetirizine 10 mg tablet (Zyrtec) 10 mg PO DAILY PRN al lergy symptoms 08/24/23 04/08/25 07:00 History naproxen 500 mg tablet 500 mg PO BID PRN pain 08/2404/07/25 12:00 History levothyroxine 150 mcg tablet 150 mcg PO QDAY THYROID 0 02/14/24 04/09/25 04:30 History (Synthroid) fluticasone propionate 230 2 inh inhalation BID ASTHMA #1 ea 02/13/25 04/09/25 04:30 Rx mcg-salmeterol 21 mcg/actuation HFA inhaler (Advair HFA) clonidine HCl 0.1 mg tablet 0.1 mg PO BID HTN #60 tabs 02/27/25 04/09/25 04:30 Rx aspirin 81 mg tablet,delayed 81 mg PO DAILY SUPPLEMENT #360 tabs 03/01/25 04/09/25 04:30 Rx release (Adult Aspirin Regimen) clopidogrel 75 mg tablet (Plavix) 75 mg PO DAILY BLOOD THINNER #30 03/01/25 04/09/25 04:30 Rx tabs metoprolol succinate 50 mg 25 mg PO BID BP 03/01/25 04:30 History tablet,extended release 24 hr budesonide-formoterol HFA 160 2 puff inhalation BID THMA 03/20/25 04/09/25 04:30 History mcg-4.5 mcg/actuation aerosol inhaler montelukast 10 mg tablet 10 mg PO QPM ASTHMA 04/09/25 04/08/25 17:00 History Allergy/AdvReac Type Severity Reaction Status Date / Time shellfish derived Allergy Anaphylaxis Verified 04/09/25 06:16 Iodinated Contrast Media AdvReac Intermediate Rash Verified 04/09/25 06:16 acetaminophen (From [place]) AdvReac Constipatio Verified 04/09/25 06:16 n hydrocodone (From [place]) AdvReac Constipatio Verified 04/09/25 06:16 n levofloxacin [...] never substance use type: does not use Review of Systems (Anesthesia) ROS Narrative System reviewed and no additional complaints, except as documented. 04/09/25641 <Electronically signed by Matt Ibarra MD > Date _ Matt Ibarra MD Cosign Signature: Date CC: ~ Signed [facility] Work Phone: 1(733) 486-723306-09-2025 History and physical note [facility] Medical Records Department [address] [facility] [place] [address] History & Physical Exam 04/09/25724 MR#: [id number] Acct: [id number] Name: ELISABETH WILDE Rep #:[id number] : 1950 75 From: Papo Sumner MD PCP: Amanda Bahena PA-C Status:ADM I N Location: [place] [address] HPI - General General Date of Admission: 04/09/25 HPI Narrative ELISABETH WILDE, is a 75 F who presents with asymptomatic left carotid stenosis >70%. She is acandidate for either endart or TCAR and she has opted for the open surgical option. She presents now for left carotid endarterectomy. [facility] Medical History Wears glasses Post-menopausal Anxiety [...] mg tablet 25 mg PO DAILY BP 12/1804/08/25 07:00 History ipratropium 0.5 mg-albuterol 3 mg 3 ml inhalation Q4H PRN PRN Sob 03/13/19 03/19/19 History (2.5 mg base)/3 mL nebulization &/Or Wheezing soln albuterol sulfate 90 mcg/actuation 2 puff inhalation Q 4H PRN 08/24/23 Unknown Rx aerosol inhaler (Ventolin HFA) shortness of breath or wheezing #8.5 grams cetirizine 10 mg tablet (Zyrtec) 10 mg PO DAILY PRN al lergy symptoms 08/24/23 04/08/25 07:00 History naproxen 500 mg tablet 500 mg PO BID PRN pain 08/2404/07/25 12:00 History levothyroxine 150 mcg tablet 150 mcg PO QDAY THYROID 0 02/14/24 04/09/25 04:30 History (Synthroid) fluticasone propionate 230 2 inh inhalation BID ASTHMA #1 ea 02/13/25 04/09/25 04:30 Rx mcg-salmeterol 21 mcg/actuation HFA inhaler (Advair HFA) clonidine HCl 0.1 mg tablet 0.1 mg PO BID HTN #60 tabs 02/27/25 04/09/25 04:30 Rx aspirin 81 mg tablet,delayed 81 mg PO DAILY SUPPLEMENT #360 tabs 03/01/25 04/09/25 04:30 Rx release (Adult Aspirin Regimen) clopidogrel 75 mg tablet (Plavix) 75 mg PO DAILY BLOOD THINNER #30 03/01/25 04/09/25 04:30 Rx tabs metoprolol succinate 50 mg 25 mg PO BID BP 03/01/25 04:30 History tablet,extended release 24 hr budesonide-formoterol HFA 160 2 puff inhalation BID THMA 03/20/25 04/09/25 04:30 History mcg-4.5 mcg/actuation aerosol inhaler montelukast 10 mg tablet 10 mg PO QPM ASTHMA 04/09/25 04/08/25 17:00 History Allergy/AdvReac Type Severity Reaction Status Date / Time shellfish derived Allergy Anaphylaxis Verified 04/09/25 06:16 Iodinated Contrast Media AdvReac Intermediate Rash Verified 04/09/25 06:16 acetaminophen (From [place]) AdvReac Constipatio Verified 04/09/25 06:16 n hydrocodone (From [place]) AdvReac Constipatio Verified 04/09/25 06:16 n levofloxacin [...] bluish discoloration of hand/feet, chest pain with activity,claudication, cold extremities, cyanosis, dyspnea on exertion, erythema on extremities, irregular heart rhythm, leg edema, leg ulcers, numbness in extremities or weakness in extremities Respiratory/Chest Respiratory/Chest: Denies cough, excessive phlegm production, shortness of breath at rest, shortness of breath with exertion or wheezing Gastrointestinal Gastrointestinal: Denies anorexia, change in stool character, constipation, diarrhea, melena or rectal bleeding Genitourinary Genitourinary: Denies dysuria or hematuria Musculoskeletal Musculoskeletal: Denies abnormal gait Integumentary Integumentary: Reports other Details: ; Denies erythema, non-healing lesions or wounds Neurologic Neurologic: Denies abnormal speech, focal weakness, headache(s), loss of vision,numbness, paresthesias or sensory deficit Hematologic/Lymphatic Hematologic/Lymphatic: Denies easy bleeding, easy bruising or lymphadenopathy Vital Signs Vital Signs Vital Signs: 04/09/25 06:20 04/09/25 06:20 04/09/25 06:41 Temperature 98.1 F 98.1 F Temperature Source Temporal Pulse Rate 71 71 Respiratory Rate 18 18 Respiratory Pattern Normal Blood Pressure 183/72 H 183/72 H Blood Pressure Mean 109 Blood Pressure Source Monitor Blood Pressure Position Sitting Blood Pressure Location Right Arm Pulse Ox 98 98 Oxygen Delivery Method Room Air Weight Weight: 178 lb 9.191 oz Body Mass Index (BMI) 30.6 Physical Exam Const alert, oriented x3, no apparent distress and healthy appearing General Appearance: cooperative; Negative for combative or lethargic Orientation / Consciousness: awake Exam Limitations: no limitations HEENT Head and Scalp: normocephalic and atraumatic Eyes EOMs intact bilaterally General Eye: normal appearance of both eyes Neck full ROM General: trachea midline Resp normal respiratory effort and no use of accessory muscles Effort and Inspection: Negative for labored, stridor or audible wheezes Cardio regular rate and regular rhythm Back/Spine Cervical Spine: cervical ROM normal Extremity full ROM, normal capillary refill and no clubbing, cyanosis or edema Skin no rashes or lesions noted and no wounds Neuro oriented x3, CN's II-XII intact bilaterally, no focal motor deficits and no sensory deficits noted Psych thought process normal, cooperative, affect normal, speech normal and activity/motor behavior normal Results Lab / Micro Data 03/21/25 11:27 03/21/25 11:27 Assessment & Plan Assessment/Plan (1) Carotid stenosis, bilateral: PLAN: -left carotid endarterectomy 04/09/25726 Cosigner Signature (if applicable): CC: LORNA Bahena; Dr. Papo Sumner MD~ Signed [facility]06-09-2025 [facility] Medical Records Department [address] [place] [address] 12827 History Physical Exam 04/09/25 0725 MR#: [id number] Acct: [id number] Name: ELISABETH WILDE Rep #: [id number] : 1950 75 From: Papo Sumner MD PCP: Amanda Bahena PA-C Status:ADM IN Location: [facility] HPI - General General Date of Admission: 04/09/25 HPI Narrative ELISABETH WILDE, is a 75 F who presents with asymptomatic left carotid stenosis >70%. She is a candidate for either endart or TCAR and she has opted for the open surgical option. She presents now for left carotid endarterectomy. [facility] Medical History Wears glasses Post-menopausal Anxiety [...] Intermediate Rash Verified 04/09/25 06:16 acetaminophen (From [place]) AdvReac Constipatio Verified 04/09/25 06:16 n hydrocodone (From [place]) AdvReac Constipatio Verified 04/09/25 06:16 n levofloxacin [...] shortness of breath wit (more content not included)...[facility]06-09-2025 Consult note [facility] Medical Records Department [address] [place] [address] Pre-Anesthesia Evaluation 04/09/25 0641 MR#: [id number] Acct: [id number] Name: ELISABETH WILDE Rep #:[id number] : 1950 75 From: Matt Ibarra MD PCP: Amanda Bahena PA-C Status:ADM I N Y Race: C Location: [place] [address] ASA Classification* ASA Classification ASA Classification: 3 Assessment & Plan Anesthesia* Anesthesia Assessment Anesthesia Assessment: Discussed sedation and/or anesthesia options, risks, benefits, and alternatives with patient/parents/legal guardian/POA. Questions invited. The patient/parents/legal guardian/POA seems to understand and agrees to proceedwith anesthesia plan. Reviewed the physical assessment, medical history, allergy history and patient home medications list prior to surgery/procedure/anesthetic and documented any changes. Performed airway and anesthesia risk assessments. Anesthesia Type Anesthesia Type: General (Thorndike pre op) Anesthesia Focused Assessment* Temperature: 98.1 F Pulse Rate: 71 Blood Pressure: 183/72 Respiratory Rate: 18 Pulse Ox: 98 Airway Assessment Mouth opens: >3 cm Mallampati Score: II Labs Anesthesia Preop lab: CBC WBC 9.2 K/mm3 (4.4-11.0) 03/21/25 11:27 03/21/25 RBC 4.84 M/mm3 (4.2-5.4) 03/21/25 11:03/21/25 Hgb 14.7 g/dL (12.0-15.0) 03/21/25 11:03/21/25 Hct 44.7 % (37-47) 03/21/25 11:27 03/21/25 Plt Count 358 K/mm3 (150-450) 03/21/25 11:27 03/21/25 CHEMISTRY Potassium 3.8 mmol/L (3.3-5.1) 03/21/25 11:27 03/21/25 Sodium 142 mmol/L (133-145) 03/21/25 11:27 03/21/25 BUN 24 mg/dL (4-19) H 03/21/25 11:03/21/25 Creatinine 0.83 mg/dL (0.70-1.20) 03/21/25 11:27 03/21/25 Glucose 99 mg/dL (70-99) 03/21/25 11:03/21/25 POC Glucose 81 mg/dL (70-110) 03/19/19 23:03 03/19/19 TSH 0.576 uIU/mL (0.300-4.200) 03/21/25 11:03/02 COAG PT 12.1 SECONDS (11.7-14.9) 03/20/19 04:05 Pre-Assessment Diagnosis/Proposed Procedure Planned Operative Procedure(s): LEFT CAROTID ENARTECTOMY Anesthesia History Anesthesia History - watch inspector final movement: Anesthesia History - watch inspector final movement Hx Hospitalization No 03/20/25 15:02 Any Problems With Anesthesia No 03/20/25 15:02 Cholinesterase deficiency No 03/20/25 15:02 You/Your Family Experience No 03/20/25 15:02 fever (hyperthermia) with Relationship Recent Exposure to Contagious No 04/09/25 06:20 Disease Does patient have nerve No 03/20/25 15:02 stimulator Patient instructed to have device shut off --Does patient have Pacemaker No 04/09/25 06:20 or ICD? When Was Last Pacemaker Check QUESTION #4 FULL TEXT: You/Your Family Experience fever (hyperthermia) with Anesthesia Last Oral Intake Last Oral intake: Last Oral Intake NPO since 04:30 04/09/25 06:20 Meds taken in AM with sips of Yes 04/09/25 06:20 water? Meds patient instructed to see med rec 04/09/25 06:20 take am of surgery PONV PONV - watch inspector final movement: PONV - watch inspector final movement Female Yes 03/20/25 15:02 HX of Motion Sickness Yes 03/20/25 15:02 HX of N/V After Surgery Yes 03/20/25 15:02 Non-Smoker Yes 03/20/25 15:02 Duration of Surgery greater No 03/20/25 15:02 than 60 minutes Number of Risk Factors 4 03/20/25 15:02 PONV Score Severe Risk 03/20/25 15:02 Height & Weight Height & Weight: Anesthesia: Height & Weight Height 5 ft 4 in 04/09/25 06:20 Weight: 81 kg 04/09/25 06:20 Body Mass Index (BMI) 30.6 04/09/25 06:20 Respiratory Assessment Respiratory Assessment - watch inspector final movement: Respiratory Tract Infection Hx - watch inspector final movement Hx Respiratory Tract Infection No 03/20/25 15:02 STOP Sleep Apnea STOP Sleep Apnea - watch inspector final movement: STOP Sleep Apnea - watch inspector final movement Hx Hypertension Yes 03/20/25 15:02 Hx Sleep [...] than talking or can be heard through closeddoors)? Tobacco Use History Tobacco Use History - watch inspector final movement: Tobacco Use History - watch inspector final movement Tobacco Use Smoking Status Former smoker 03/20/25 15:02 Hx Tobacco Use No 03/20/25 15:02 Years Smoking Packs Smoked per Day Smoking Cessation Date was Yes - quit smoking within 15 03/20/25 15:02 within the last 15 years years Hx Smoking Cessation Date Hx Smoking Cessation No 03/20/25 15:02 Counseling Hematologic Medial History Hematologic Hx - watch inspector final movement: Hematologic Medical Hx - medicare coordinator Hx of Blood Transfusion No 03/20/25 15:02 Hx of Transfusion in last 3 No 03/20/25 15:02 Months Date of Last Transfusion (if within last 3 months) Ever experience any problems No 03/20/25 15:02 with transfusion(s)? Specify any problems Hx of Preganancy in last 3 No 03/20/25 15:02 Months Nurse Filling Out Transfusion VLEHMAN 03/20/25 15:02 & Questions: Date: 03/20/25 03/20/25 15:02 Time: 15:13 03/20/25 15:02 Patient unable to answer at this time (ie. confused, unrespo /Reproduction History /Reproductive History - watch inspector final movement: /Reproductive Hx- watch inspector final movement Hx Now No 03/20/25 15:02 Gestational Age (in weeks): EDC: Hx Hx Para Hx Section SAB No 03/20/25 15:02 Active Medications Active Medications: Current Medications Generic Name Dose Route Start Last Admin Trade Name Freq PRN Reason Stop Dose Admin Cefazolin Sodium 2 gm/ Sodium 110 mls @ 150 mls/hr 04/09/25 07:30 Chloride IV 04/09/25 08:13 INTRAOP ONE Lactated Ringer's 1,000 mls @ 15 mls/hr 04/09/25 05:45 04/09/25 06:00 IV 15 mls/hr .Q48H SUJIT Administration PFSH Medical History Wears glasses Post-menopausal Anxiety Thyroid [...] mg tablet 25 mg PO DAILY BP 12/1804/08/25 07:00 History ipratropium 0.5 mg-albuterol 3 mg 3 ml inhalation Q4H PRN PRN Sob 03/13/19 03/19/19 History (2.5 mg base)/3 mL nebulization &/Or Wheezing soln albuterol sulfate 90 mcg/actuation 2 puff inhalation Q 4H PRN 08/24/23 Unknown Rx aerosol inhaler (Ventolin HFA) shortness of breath or wheezing #8.5 grams cetirizine 10 mg tablet (Zyrtec) 10 mg PO DAILY PRN al lergy symptoms 08/24/23 04/08/25 07:00 History naproxen 500 mg tablet 500 mg PO BID PRN pain 08/2404/07/25 12:00 History levothyroxine 150 mcg tablet 150 mcg PO QDAY THYROID 0 02/14/24 04/09/25 04:30 History (Synthroid) fluticasone propionate 230 2 inh inhalation BID ASTHMA #1 ea 02/13/25 04/09/25 04:30 Rx mcg-salmeterol 21 mcg/actuation HFA inhaler (Advair HFA) clonidine HCl 0.1 mg tablet 0.1 mg PO BID HTN #60 tabs 02/27/25 04/09/25 04:30 Rx aspirin 81 mg tablet,delayed 81 mg PO DAILY SUPPLEMENT #360 tabs 03/01/25 04/09/25 04:30 Rx release (Adult Aspirin Regimen) clopidogrel 75 mg tablet (Plavix) 75 mg PO DAILY BLOOD THINNER #30 03/01/25 04/09/25 04:30 Rx tabs metoprolol succinate 50 mg 25 mg PO BID BP 03/01/25 04:30 History tablet,extended release 24 hr budesonide-formoterol HFA 160 2 puff inhalation BID THMA 03/20/25 04/09/25 04:30 History mcg-4.5 mcg/actuation aerosol inhaler montelukast 10 mg tablet 10 mg PO QPM ASTHMA 04/09/25 04/08/25 17:00 History Allergy/AdvReac Type Severity Reaction Status Date / Time shellfish derived Allergy Anaphylaxis Verified 04/09/25 06:16 Iodinated Contrast Media AdvReac Intermediate Rash Verified 04/09/25 06:16 acetaminophen (From [place]) AdvReac Constipatio Verified 04/09/25 06:16 n hydrocodone (From [place]) AdvReac Constipatio Verified 04/09/25 06:16 n levofloxacin [...] never substance use type: does not use Review of Systems (Anesthesia) ROS Narrative System reviewed and no additional complaints, except as documented. 04/09/25 0642 > Date _ Matt Ibarra MD Cosigner Signature: Date CC: ~ Signed [facility]05-02-2025 Radiology Diagnostic study note [facility] Imaging Services [address] [place], [place] [address] CTA Head AND Neck W/ Contrast MR#: [id number] Acct: [id number] Name: ELISABETH WILDE Rep #: [id number] : 1950 F 74 From: Gogo Yip MD PCP: Amanda Bahena PA-C Status: REG C MELANIE Study:CTA Head AND Neck W/ Contrast Date of E xam: 03/02/25 Exam# [id number] Ordering Dr: Gerry Carrillo PROCEDURE: CT HEAD [...] definite acute territorial infarct, or visible mass. Minimalcerebral volume loss. Cerebellum/brainstem: Unremarkable. Note slight limitation [...] Posterior circulation: Patent. origin of the RIGHT SCHEDULE MAKER. RIGHT PICA and LEFT AICA are visualized. Venous structures: Grossly unremarkable within limits of nondedicated technique. Other: Mild cervical spondylosis. Demineralization. Reversal of the normal cervical lordosis may bepositional, degenerative, or related to pain/muscular spasm.. Mild [...] 4. Additional description as above. Reading Location: [id number] CC: LORNA Bahena; KANNAN Bermudez Induction Heating Equipment Setter: Signed [facility]04-29-2025 Discharge summary [facility] Medical Records Department [address] [place] [address] Emergency Department Summary 02/27/25 MR#: [id number] Acct: [id number] Name: ELISABETH WILDE Rep #:[id number] : 1950 74 From: Des Avila MD [...] vision loss of vision. She has chronic tinnitus.Denies decreased hearing. She denies trouble with speechor swallowing. She denies chest pain or back pain. Denies shortness of breath. Denies orthopnea or PND. She denies nausea or vomiting. She denies problems with balance or coordination. She denies paresthesia, anesthesia or motor weakness upperor lower extremity. She had recent blood work that was all normal. There was no evidence of endorgan dysfunction. This was performed on Wednesday Prior similar symptoms: Yes Recent Illness/Hospitalization: Yes [facility] Medical History (Updated 02/27/25 @ 19:38 [...] Reaction Status Date / Time acetaminophen (From [place]) AdvReac Constipatio Verified 02/27/25 17:59 n hydrocodone (From [place]) AdvReac Constipatio Verified 02/27/25 17:59 n levofloxacin [...] Wheezing) Primary Care Provider: Amanda Bahena Referrals: Amanda Bahena PA-C [Primary Care Provider] - 1 Week Print Language: Faroese Disposition Disposition: Home, Self Care What to do if you have Problems For any increased pain, shortness of breath, bleeding, nausea or vomiting, chestpain, or any unexpected problems, contact your Primary Care Provider. Call [facility] ([phone]) or report tothe closest Emergency Room. Call 911 if necessary. 02/27/251938 Cosigner Signature (if applicable): CC: LORNA Bahena ~ Signed [facility]04-29-2025 Discharge summary Author Des Avila [facility] Note Date/Time February 27, 2025 7:3 9pm [facility] [place] [facility] Medical Records Department [address] [place] [address] Emergency Department Summary 02/27/25 MR#: [id number] Acct: [id number] Name: ELISABETH WILDE Rep #:[id number] : 1950 74 From: Des Avila MD PCP: Amanda Bahena PA-C Status:REG E R Location: ED HPI History of Present Illness Chief Complaint: Hypertension Detail of Chief Complaint: Asymptomatic hypertension Informant: patient and spouse/S.O. Onset/Context/Timing Onset: Days (Started Wednesday, February 25) Context: Sudden Onset Timing: Continuous [...] Prior similar symptoms: Yes Recent Illness/Hospitalization: Yes [facility] Medical History (Updated 02/27/25 @ 19:38 [...] Reaction Status Date / Time acetaminophen (From [place]) AdvReac Constipatio Verified 02/27/25 17:59 n hydrocodone (From [place]) AdvReac Constipatio Verified 02/27/25 17:59 n levofloxacin [...] Wheezing) Primary Care Provider: Amanda Bahena Referrals: Amanda Bahena PA-C [Primary Care Provider] - 1 Week Print Language: Faroese Disposition Disposition: Home, Self Care What to do if you have Problems For any increased pain, shortness of breath, bleeding, nausea or vomiting, chestpain, or any unexpected problems, contact your Primary Care Provider. Call [facility] ([phone]) or report to the closest Emergency Room. Call 911 if necessary. 02/27/251938 <Electronically signed by Des Avila MD> Cosigner Signature (if applicable): CC: LORNA Bahena ~ Signed [facility] Work Phone: 1(664) 978-977804-15-2025 Evaluation note* Diagnosis Onset Date Resolution Status Admit Date Asthma-chronic obstructive pulmonary disease overlap syndrome chronic February 13, 2025 2:03pm Obesity chronic February 13 2:03pm [facility] Work Phone: 1(461) 992-153504-15-2025 Evaluation note* Diagnosis Onset Date Resolution Status Admit Date Asthma-chronic obstructive pulmonary disease overlap syndrome chronic February 13, 2025 2:03pm Obesity chronic February 13 2:03pm Carotid stenosis, bilateral chronic March 01, 2025 9:47am Carotid stenosis, bilateral chronic March 05, 2025 12:21pm [facility] Work Phone: 1(588) 227-271704-15-2025 Evaluation note* Diagnosis Onset Date Resolution Status Admit Date Asthma-chronic obstructive pulmonary disease overlap syndrome chronic February 13, 2025 2:03pm Obesity chronic February 13 2:03pm Carotid stenosis, bilateral chronic March 01, 2025 9:47am Carotid stenosis, bilateral chronic March 05, 2025 12:21pm Carotid stenosis, bilateral chronic April 09, 2025 10:34am HTN (hypertension) chronic April 092024 10:34am [facility] Work Phone: 1(548) 316-245704-15-2025 Evaluation note* Diagnosis Onset Date Resolution Status Admit Date Asthma-chronic obstructive pulmonary disease overlap syndrome chronic February 13, 2025 2:03pm Obesity chronic February 13 2:03pm Carotid stenosis, bilateral inactive March 01, 2025 9:47am Carotid stenosis, bilateral inactive March 05, 2025 12:21pm HTN (hypertension) chronic April 092024 10:34am Carotid stenosis, bilateral inactive April 09, 2025 10:34am [facility] Work Phone: 1(211) 314-464707-06-2023 Evaluation + Plan noteExtracted from: Title:History and [...] MILL Appointment Type:CV OV Hospital Follow Up [facility] [place] [facility] 07-06-2023 Hospital Discharge instructions Patient Education 05/06/2023 [...] 10/04/2013 Document Reviewed: 10/19/2014 ExitCare Patient Information 2014 [employer]. This information is not intended to replace [...] until you are awake and alert. Take qehi-bxw-asblsvk and prescription medicines only as told by [...] 08/08/2014 Document Revised: 09/30/2018 Document Reviewed: 02/06/2017 [employer] Patient Education 2020 docplanner. Follow Up Care 05/05/2023 09:44:54 With:IGOR MONTANO MD Address: [address] [place] [address] [address] [facility] [place] [address]- When:06/23/2023 13:45:00 [facility] [place] [facility] 07-06-2023 Summary of episode note Discharge Instructions Thank you for allowing [facility] to assist you with your healthcare needs. The following is importantdischarge information regarding your hospital visit. Your Care Team AMANDA BAHENA PA-C What to do next Scheduled Follow-Up Appointments Appointment Type When Where Contact InformationCV Hospital Follow Up 06/23/2023 01:45 PM EDT [facility] Follow Up Appointments Follow Up with IGOR MONTANO MD When 06/23/2023 01:45 PM EDT Where: [address] [place] [address]- The Following Activity and Diet Have Been [...] Once a day Refills: 5 Pickup at [facility] Unchanged aspirin 81 Milligram [...] Every day Takes 2 gummies Pharmacy Information [facility]: [address] [place], [place] [phone] Please take this list to your next [...] Document Reviewed: 10/19/2014 ExitCare Patient Information 2015 [employer]. This information is not intended to replace [...] until you are awake and alert. Take ugdl-ane-jnhjhye and prescription medicines only as told by [...] 08/08/2014 Document Revised: 09/30/2018 Document Reviewed: 02/06/2017 Else[employer] Patient Education 2020 [employer] Additional Information VACCINATE! IT SAVES LIVES! Members of the community who have not yet received the COVID-19 vaccine and would like to receive it can visit one of [facility] vaccine clinics. There are many vaccine clinic locations within the [place] [facility]. For locations and available times, please visit [email or web address].[place].gov/. It is important to note that some COVID mobile vaccine clinics are held outdoors and may be canceled in rainy or stormy conditions. To learn more about pediatric vaccinations (ages 5-11), we invite you to visit the [facility] webpage. https://www.[facility].org/pages/9933-Vvlex-Cggqjqfifze-Mjfonudlff-Esasg-Iql stions.htmlTo learn more about the COVID-19 vaccine, we invite you to visit the CDC website for a list of frequently asked questions.https://www.cdc.gov/coronavirus/2019-ncov/vaccines/faq.html [employer] Patient Portal Access Instructions: Stay connected with your healthcare team and access your personal medical information anytime with the [employer] Patient Portal. Please follow the directions below to create your [employer] account: 1.Access the email account you provided upon registration to the hospital/physician office.2.Look for an invitation email from [facility].3.Open the email and access the invitation link: AcceptInvitation to [employer].4.Fill in the required pedro to create your account. To access your account, visit [employer]. Click the blue button labeled Access Patient Portal and then log in with the username and password that you created in the steps above. You will be able to view your test results, lab results, a summary of your visits, upcoming appointments and more. There is also a convenient messaging option where you can send secure messages to your p Personalisvider. In addition, you will have the ability to download any documents or summaries to your computer and/or send the information securely to a physician. Remember that your healthcare information is confidential, so carefully consider who you will allowto register on the [employer] Patient Portal for access to your information. You can also access the [employer] Patient Portal on the [employer] isa. Simply click on Patient Portal and then log into your account. If you would like to receive a full copy of your medical records, please contact the [facility] Medical Records Department by calling [phone], Wednesday through Wednesday between 8 a.m. and [...] Call your local pharmacy or go to http://DPSI.MetaCDN/3L0Fp5y to find one close to you.3.Make use of household items: Use cat litter or old coffee grounds to dispose medications if other options arenot available. Mix your drugs with these household products, seal them in an airtight container andthrow it into the garbage. Call [facility]: [phone] to be sure your drugs can be [...] been reviewed and explained to me and I,ELISABETH WILDE understand my current condition and have read and understand these discharge instructions. I have received a written copy of the plan/instructions. If I have questions, I am aware that I should contact my doctor. Patient/Anthropology Faculty Member Signature: Date/Time: Relationship to Patient: Witness Name/Signature: [id number] Discharge summary Date of Service May 06, [...] she will be discharged back to her seam rubber for further evaluation and management. Allergies NKA [...] mouth once a day. Refills: 5. Unchanged [id number] Milligram by mouth every day. [id number] Milligram by mouth once a day. cyanocobalamin [...] gummies. Follow Up Follow Up with IGOR OMNTANO MD When 06/23/2023 01:45 PM EDT Where: [address] [facility] [address] [facility] [place] [address]- Follow Up Appointments No qualifying data available. [...] WILLIAM SCOTT MD on 05/06/2023 09:35 AM [id number] History and physical note Date of Service May 06, 2023 Chief Complaint Chest pain History of Present Illness Patient is a 73-year-old female history of Hypertension, Graves' disease, asthma, anxiety she initially presented to [facility] on 05/[facility]2023 for an episode of chest [...] WILLIAM SCOTT MD on 05/06/2023 09:29 AM [facility] summary Author Wiley Guerrero [facility] Note Date/Time April 13, 2025 10:1 3am [facility] Medical Records Department [address] [place] [address] Instructions for Home/Discharge Instructions 04/13/25 0958 MR#: [id number] Acct: [id number] Name: ELISABETH WILDE Rep #:[id number] : 1950 75 From: Wiley Guerrero DO PCP: Amanda Bahena PA-C Status:ADM I N Discharge Instructions Diet Discharge Diet: No restrictions DC O2, CPAP, BIPAP needs Home O2 Discharge instructions: No Dressing / Incision Discharge Activity: Return to Normal Activity and May Drive Weight Bearing Status: Full weight bearing Follow Up Care Test Results: Test results from this visit will be discussed in further detail at your follow- up appointment, if applicable. Discharge Plan Admission Admit Date/Time: 04/09/25 10:34 Primary Reason for Your Visit: Left carotid endarterectomy Attending Provider: Papo Sumner Primary Care Provider: Amanda Bahena Consulting Providers: Amos Fontaine; Matteo Griggs; Destiny Banerjee; Markus Boles; Markus Serra; Papo Oconnor; Kathrine Triplett; Jose A Murry; Maaem Reese; Wiley Guerrero; Steph Travis; Albaro Lee; Johnie Ratliff; Michele Joyec; Waleska Wallace; Italo Petty; Maximo Au Instructions Additional Instructions / Restrictions: INCISION CARE: You have a small bandage on your neck over the site from which the surgical drain was removed. You may remove this bandage tonight after you shower. As long as there is no residual drainage, you may leave this open to air. If you do notice some continued drainage, you may re-cover with a Band-Aid. Your neck incision site is covered with skin glue which will continue to protectit. The skin glue will peel/flake off on its own over the next few weeks. Please do not pick at it. You may shower tonight. It is okay for soap and water to rinse over the incisionsite, pat to dry. Do not submerge the incision site in water such as to take a bath or go swimmingetc. for 3 weeks. ACTIVITY INSTRUCTIONS Do not lift greater than 20 pounds for 3 weeks. Otherwise, please continue withactivity as tolerated. Do not drive until you can turn your head well enough to safely check your blindspots. FOLLOW-UP INSTRUCTIONS You are scheduled for follow-up in the office on 04/24/25. If you need to change this appointment or have any other questions/concerns, please call the office [phone]. Discharge Orders/Prescriptions Prescriptions: New furosemide 40 mg Tablet 40 mg PO BIDLX Qty: 60 0RF clonidine HCl 0.1 mg Tablet 0.1 mg PO BID Qty: 60 0RF metoprolol succinate 50 mg Tablet Extended Release 24 Hr 150 mg PO BID Qty: 180 0RF hydralazine 50 mg Tablet 100 mg PO TID Qty: 180 0RF potassium chloride [Klor-Con 10] 10 mEq tablet extended release 20 meq PO DAILY Qty: 60 0RF amlodipine 10 mg Tablet 10 mg PO DAILY Qty: 30 0RF Continued cetirizine [Zyrtec] 10 mg tablet 10 mg PO DAILY PRN (Reason: allergy symptoms) albuterol sulfate [Ventolin HFA] 90 mcg/actuation HFA aerosol inhaler 2 puff inhalation Q4H PRN (Reason: shortness of breath or wheezing) Qty: 8.5 6RF levothyroxine [Synthroid] 150 mcg tablet 150 mcg PO QDAY fluticasone propion-salmeterol [Advair HFA] 230-21 mcg/actuation HFA aerosol inhaler 2 inh inhalation BID Qty: 1 11RF Patient Comments: WILL START TAKING AFTER DONE WITH SYMBICORT. HAD TO SWITCH INHALERS D/T INSURANCE clopidogrel [Plavix] 75 mg tablet 75 mg PO DAILY Qty: 30 1RF aspirin [Adult Aspirin Regimen] 81 mg tablet,delayed release (DR/EC) 81 mg PO DAILY Qty: 360 0RF ipratropium-albuterol 3 ML solution for nebulization 3 ml INHALATION Q4H PRN PRN (Reason: Sob &/Or Wheezing) clonidine HCl 0.1 mg tablet 0.1 mg PO BID Qty: 60 0RF budesonide-formoterol 160-4.5 mcg/actuation HFA aerosol inhaler 2 puff inhalation BID Patient Comments: LAST DJOSE WILL BE 03/30/25 D/T TO INSURANCE CHANGING. WILL START ADVAIR THEN montelukast 10 mg tablet 10 mg PO QPM Discontinued naproxen 500 mg tablet 500 mg PO BID PRN (Reason: pain) metoprolol succinate 50 mg tablet extended release 24 hr 25 mg PO BID hydrochlorothiazide 25 MG tablet 25 mg PO DAILY Patient Comments: bp Other Ambulatory Orders: 12 Lead EKG (Routine) Timeframe: [id number] Location: None Selected Ordered By: Dr. Matt Ibarra Referrals / Follow Up: Papo Sumner MD [Med Staff - Active Staff] - See Referral Note (As scheduled) Amanda Bahena PA-C [Primary Care Provider] - In 1 Week (You will need to have a BMP (lab work) done to check your potassium) Disposition Disposition (needs filled in before D/C Order can be placed): Home, Self Care 04/13/25 1013<Electronically signed by Wiley Guerrero DO>Wiley Guerrero DO CC: LORNA Bahena; KANNAN Mcbride; Dr. Matteo Griggs MD; Dr. Amos Fontaine DO; Dr. Destiny Banerjee MD; Dr. Markus Serra MD; Dr. Carmencita Bradford DO; Dr. Papo Oconnor DO; Dr. Kathrine Triplett MD; Dr. Jose A Murry MD; Dr. Maame Reese DO; Dr. Wiley Guerrero DO; Dr. Steph Travis MD; Dr. Albaro Lee MD; Dr. Waleska Wallace MD; Dr. Michele Joyce MD; Dr.Prakash Gaudencio MD; Italo Petty MD ~ Signed [facility] Work Phone: Evaluation noteNo assessment information available [facility] Work Phone: Hospital course Narrative No data available for this section [facility] Progress note Author Wiley Guerrero [facility] Note Date/Time April 13, 2025 10:1 5am [facility] Medical Records Department [address] [place] [address] Progress Note - Hospitalist 04/13/25 1013 MR#: [id number] Acct: [id number] Name: ELISABETH WILDE Rep #:[id number] : 1950 75 From: Wiley Guerrero DO PCP: Amanda Bahena PA-C Status[facility] for Visit Reason for Visit: Diagnoses Essential (primary) hypertension (04/09/25) Occlusion and stenosis of bilateral carotid arteries (04/09/25) Encounter for other preprocedural examination (04/09/25) Subjective Subjective Patient was seen and examined today, her systolic blood pressure is in the 140s today, I talked with vascular surgery about discharging the patient today. Her prescriptions were transmitted to her pharmacy. Objective Data Objective Data Vital Signs: Vital Signs Temp Pulse Resp BP Pulse Ox O2 Del Method O2 Flow Rate 97.8 F 79 20 H 137/50 H 92 Room Air 2 04/13/25 08:00 04/13/25 09:10 04/13/25 09:00 04/13/25 09:00 04/13/25 09:00 04/13/25 09:00 04/12/25 14:00 FiO2 40 04/12/25 16:00 Oxygen Flow Rate (L/min) 2 Oxygen Delivery Method Room Air Weight: 84.5 kg Body Mass Index (BMI) 33.0 Intake & Output: Intake and Output for Last 24 Hours 04/11/25 04/12/25 04/13/25 23:59 23:59 23:59 Intake Total 643.30 / 658.60 264.56 / 264.56 Output Total 950 / 1150 400 / 400 Balance -306.70 / -491.40 -135.44 / -135.44 Lab / Micro Data 04/10/25 04:58 04/10/25 04:58 Physical Exam Narrative alert, oriented x3, no apparent distress and healthy appearing General Appearance: cooperative, well kempt and well developed Orientation / Consciousness: awake, oriented to person, oriented to place and oriented to time HEENT normocephalic and moist oral mucous membranes Eyes PERRL, EOMs intact bilaterally and conjunctivae normal Neck supple, no JVD, thyroid normal and no carotid bruits General: trachea midline Resp normal respiratory effort and clear to auscultation bilaterally Auscultation: Negative for rales, rhonchi or wheezes Cardio S1 normal heart sound, S2 normal heart sound, no murmurs, no rub and no gallops Cardio Narrative: Heart rate and rhythm is irregular GI normal to inspection, nondistended, normoactive bowel sounds, soft to palpation,non-tender and non-distended Extremity no clubbing, cyanosis or edema Skin no rashes or lesions noted General Skin Exam: no breakdown Neuro oriented x3, CN's II-XII intact bilaterally, moves all extremities, no focal motor deficits and no sensory deficits noted Sensorium / Orientation: awake and alert Speech: speech normal Psych affect normal Assessment & Plan Assessment/Plan (1) Carotid stenosis, bilateral: (2) HTN (hypertension): PLAN: Plan 1. New onset atrial fibrillation with RVR-patient remains in sinus rhythm at this point, continue oral metoprolol at 150 mg twice daily, patient will not be anticoagulated for now due to her recent carotid surgery, this will be addressedby vascular surgery after her appointment in approximately 2 weeks #2 essential hypertension under adequate control, her prescriptions were transmitted to her pharmacy #3 hypothyroidism-patient's T4 slightly high-I do not think this is significant,free T4 is normal #4 carotid occlusive disease-status post carotid endarterectomy left #5 chronic obstructive pulmonary disease-complicates care, management, recovery,and prognosis #6 cephalgia-etiology unclear, resolved at this time #7 nausea and vomiting-resolved at this time Patient appears medically stable for discharge at this time Total clinical time spent by myself addressing the patient's medical issues, reviewing all of her data, and collaborating with patient's care team: 35 minutes Charges/Coding Visit Charges Inpatient E&M: 87585 Subs Hosp L2 04/13/25 1015 <Electronically signed by Wiley Guerrero DO> Cosigner Signature (if applicable): CC: ~ Signed [facility] Work Phone: Reason for referral (narrative)No reason for referral information availableWMercy Health Work Phone: Summary Purpose Family History No [...] Date/ Time Living Will Yes August 03 0 12:17am Power of Carpentry Foreman Yes August 03 12:17am Advance Directive Response Recorded Date/ Time Living Will Yes August 03 12:17am Do you have a Healthcare Power of Carpentry Foreman? Yes August 03, 2020 12:17am Do you have a Healthcare Power of Carpentry Foreman? No February 27, 2025 6:38pm Advance Directive Response Recorded Date/ Time Living Will Yes August 03 0 12:17am Do you have a Healthcare Power of Carpentry Foreman? Yes August 03, 2020 12:17am Do you have a Healthcare Power of Carpentry Foreman? No February 27, 2025 6:38pm Do you have a Healthcare Power of Carpentry Foreman? Yes April 09, 2025 1:33pm Chief Complaint and Reason for Visit Chief [...] 9:47am Carotid stenosis, bilateral March 05 12:21pm Chief Complaint Admit Date 1 Y FU February 13, 2025 2:0 3pm hypertension February 27, 2025 5:5 3pm B/L Carotid Bruit March 01, 2025 9:47am Occlusion and stenosis of bilateral bean tid arteri March 02, 2025 8:44am Discuss CTA March 05, 2025 12:21p m PREOP March 21, 2025 12:04 pm left Carotid Endarterectomy April 09 7:25am left Carotid Endarterectomy April 09 10:34am left Carotid Endarterectomy April 09 3:35pm left Carotid Endarterectomy April 10, 2 025 8:35am left Carotid Endarterectomy April 10, 2 025 6:25pm left Carotid Endarterectomy April 11, 2 025 6:08pm left Carotid Endarterectomy April 11, 2 025 6:11pm left Carotid Endarterectomy April 12, 2 025 11:35am left Carotid Endarterectomy April 12, 2 025 7:02pm left Carotid Endarterectomy April 13, 2 025 10:13am Reason for Visit Admit Date Asthma-chronic obstructive pulmonary dis ease overlap syndrome February 13, 2025 2:03pm Obesity February 13, 2025 2:0 3pm Carotid stenosis, bilateral March 01 9:47am Carotid stenosis, bilateral March 05 12:21pm Carotid stenosis, bilateral April 09 10:34am HTN (hypertension) April 09, 2025 10:34 am Chief Complaint Admit Date 1 Y FU February 13, 2025 2:0 3pm hypertension February 27, 2025 5:5 3pm B/L Carotid Bruit March 01, 2025 9:47am Occlusion and stenosis of bilateral bean tid arteri March 02, 2025 8:44am Discuss CTA March 05, 2025 12:21p m PREOP March 21, 2025 12:04 pm left Carotid Endarterectomy April 09 7:25am left Carotid Endarterectomy April 09 10:34am left Carotid Endarterectomy April 09 3:35pm left Carotid Endarterectomy April 10, 2 025 8:35am left Carotid Endarterectomy April 10, 2 025 6:25pm left Carotid Endarterectomy April 11, 2 025 6:08pm left Carotid Endarterectomy April 11, 2 025 6:11pm left Carotid Endarterectomy April 12, 2 025 11:35am left Carotid Endarterectomy April 12, 2 025 7:02pm left Carotid Endarterectomy April 13, 2 025 9:47am left Carotid Endarterectomy April 13, 2 025 10:13am left Carotid Endarterectomy April 17, 2 025 10:09am Post Endartectomy 2-3 WK FU April 24, 2 025 1:14pm Reason for Visit Admit Date Asthma-chronic obstructive pulmonary dis ease overlap syndrome February 13, 2025 2:03pm Obesity February 13, 2025 2:0 3pm Carotid stenosis, bilateral March 01 9:47am Carotid stenosis, bilateral March 05 12:21pm HTN (hypertension) April 09, 2025 10:34 am Carotid stenosis, bilateral April 09 10:34am Additional Source Comments INFORMATION SOURCE (unrecogn ized section and content) DATE CREATED AUTHOR 09/11/2020 [facility] DATE CREATED AUTHOR AUTHOR'S ORGANIZ ATION 05/12/2023 [facility] DATE CREATED AUTHOR AUTHOR'S ORGANIZ ATION 04/27/2025 [facility] DATE CREATED AUTHOR AUTHOR'S ORGANIZ ATION 04/27/2025 [facility] Care Teams (unrecognized sec tion and content) Team Status: Active Member Role Status Dates Amanda BRUNNER PA-C Family Provider Active Amanda BRUNNER PA-C Primary Care Provider Active Team Status: Inactive Member Role Status Dates Amanda BRUNNER PA-C Primary Care Provider Active Dr. Micah Loza MD Attending Provider, Referring Provi sandor Active Team Status: Active Member Role Status Dates Amanda Arnold PA, PA-C Primary Care Provider Active Team Status: Inactive Member Role Status Dates Amanda Bahena PA, PA-C Primary Care Provider Active Start: February 13, 2025 End: February 13, 2025 Amanda Bahena PA, PA-C Referring Provider Active Start: February 13, 2025 End: February 13, 2025 Tatiana Rogel GENERAL ACTIVITIES THERAPIST, GENERAL ACTIVITIES THERAPIST-C Attending Provider Active Start: February 13, 2025 [...] 01, 2025 End: March 01, 2025 Amanda Bahena PA, PA-C Referring Provider [...] 05, 2025 End: March 05, 2025 Amanda Bahena PA, PA-C Referring Provider Active Start: March 05, 2025 End: March 05, 2025 Dr. Papo Sumner MD Attending Provider Active S tart: March 05, 2025 End: March 05, 2025 Team Status: Active Member Role Status Dates [facility] PA, PA-C Primary Care Provider Active Start: March 21, 2025 End: March 21, 2025 Dr. Pepe Sanchez MD Attending Provider Active S tart: March 21, 2025 End: March 21, 2025 Dr. Papo Sumner MD Referring Provider Active S tart: March 21, 2025 End: March 21, 2025 Team Status: Active Member Role Status Dates [facility] PA, PA-C Primary Care Provider Active Start: April 09, 2025 Dr. Papo Sumner MD Admit Provider Active Start : April 09, 2025 Dr. Papo Sumner MD Attending Provider Active S tart: April 09, 2025 Dr. Papo Sumner MD Referring Provider Active S tart: April 09, 2025 Dr. Papo Sumner MD Other Provider Active Start : April 09, 2025 Team Status: Inactive Member Role Status Dates [facility] PA, PA-C Primary Care Provider Active Start: April 09, 2025 End: April 13, 2025 Dr. Papo Sumner MD Admit Provider Active Start : April 09, 2025 End: April 13, 2025 Dr. Papo Sumner MD Attending Provider Active S tart: April 09, 2025 End: April 13, 2025 Dr. Papo Sumner MD Referring Provider Active S tart: April 09, 2025 End: April 13, 2025 Dr. Amos Fontaine , Other Provider Active Start: April 09, 2025 End: April 13, 2025 Dr. Matteo Griggs MD Other Provider Active St art: April 09, 2025 End: April 13, 2025 Dr. Destiny Banerjee MD Other Provider Active St art: April 09, 2025 End: April 13, 2025 Dr. Markus Boles , Other Provider Active Start: April 09, 2025 End: April 13, 2025 Dr. Markus Serra MD Other Provider Active Star t: April 09, 2025 End: April 13, 2025 Dr. Papo Oconnor , Other Provider Active Star t: April 09, 2025 End: April 13, 2025 Dr. Kathrine Triplett MD Other Provider Active Sta rt: April 09, 2025 End: April 13, 2025 Dr. Jose A Murry MD Other Provider Active S tart: April 09, 2025 End: April 13, 2025 Dr. Maame Reese DO Other Provider Active Start : April 09, 2025 End: April 13, 2025 Dr. Wiley Guerrero DO Other Provider Active S tart: April 09, 2025 End: April 13, 2025 Dr. Steph Travis MD Other Provider Active St art: April 09, 2025 End: April 13, 2025 Dr. Albaro Lee MD Other Provider Active Start: April 09, 2025 End: April 13, 2025 Dr. Johnie Ratliff MD Other Provider Active Sta rt: April 09, 2025 End: April 13, 2025 Dr. Michele Joyce MD Other Provider Active Star t: April 09, 2025 End: April 13, 2025 Dr. Waleska Wallace MD Other Provider Active Star t: April 09, 2025 End: April 13, 2025 Dr. Italo Petty MD Other Provider Active S tart: April 09, 2025 End: April 13, 2025 KANNAN Fine Other Provider Active Start: April 09, 2025 End: April 13, 2025 Team Status: Active Member Role Status Dates [facility] KANNNA, PA-C Primary Care Provider Active Start: April 09, 2025 Dr. Papo Sumner MD Admit Provider Active Start : April 09, 2025 Dr. Papo Sumner MD Referring Provider Active S tart: April 09, 2025 Dr. Paop Sumner MD Other Provider Active Start : April 09, 2025 Dr. Amos Fontaine DO Attending Provider Active Start: April 09, 2025 Dr. Amos Fontaine DO Other Provider Active Start: April 09, 2025 Team Status: Active Member Role Status Dates [facility] PA, PA-C Primary Care Provider Active Start: April 10, 2025 Dr. Papo Sumner MD Admit Provider Active Start : April 10, 2025 Dr. Papo Sumner MD Referring Provider Active S tart: April 10, 2025 Dr. Papo Sumner MD Other Provider Active Start : April 10, 2025 Dr. Amos Fontaine , DO Other Provider Active Start: April 10, 2025 Dr. Matteo Griggs MD Other Provider Active St art: April 10, 2025 Dr. Destiny Banerjee MD Other Provider Active St art: April 10, 2025 Dr. Markus Boles , DO Other Provider Active Start: April 10, 2025 Dr. Markus Serra MD Other Provider Active Star t: April 10, 2025 Dr. Papo Oconnor , DO Other Provider Active Star t: April 10, 2025 Dr. Kathrine Triplett MD Other Provider Active Sta rt: April 10, 2025 Dr. Jose A Murry MD Other Provider Active S tart: April 10, 2025 Dr. Maame Reese , Other Provider Active Start : April 10, 2025 Dr. Wiley Guerrero , DO Other Provider Active S tart: April 10, 2025 Dr. Steph Travis MD Other Provider Active St art: April 10, 2025 Dr. Albaro Lee MD Other Provider Active Start: April 10, 2025 Dr. Johnie Ratliff MD Other Provider Active Sta rt: April 10, 2025 Dr. Michele Joyce MD Other Provider Active Star t: April 10, 2025 Dr. Waleska Wallace MD Other Provider Active Star t: April 10, 2025 Dr. Italo Petty MD Other Provider Active S tart: April 10, 2025 KANNAN Fine Other Provider Active Start: April 10, 2025 KANNAN Bermudez Attending Provider Active Star t: April 10, 2025 Team Status: Active Member Role Status Dates Amandadanni BRUNNER PA-C Primary Care Provider Active Start: April 10, 2025 Dr. Lisa Seymour MD Attending Provider Active Start: April 10, 2025 Team Status: Active Member Role Status Dates Amandadanni BRUNNER PA-C Primary Care Provider Active Start: April 10, 2025 Dr. Papo Sumner MD Admit Provider Active Start : April 10, 2025 Dr. Papo Sumner MD Referring Provider Active S tart: April 10, 2025 Dr. Papo Sumner MD Other Provider Active Start : April 10, 2025 Dr. Amos Fontaine , DO Other Provider Active Start: April 10, 2025 Dr. Matteo Griggs MD Other Provider Active St art: April 10, 2025 Dr. Destiny Banerjee MD Other Provider Active St art: April 10, 2025 Dr. Markus Boles , Other Provider Active Start: April 10, 2025 Dr. Markus Serra MD Other Provider Active Star t: April 10, 2025 Dr. Papo Oconnor , Other Provider Active Star t: April 10, 2025 Dr. Kathrine Triplett MD Other Provider Active Sta rt: April 10, 2025 Dr. Jose A Murry MD Other Provider Active S tart: April 10, 2025 Dr. Maame Reese , Other Provider Active Start : April 10, 2025 Dr. Wiley Guerrero DO Attending Provider Active Start: April 10, 2025 Dr. Wiley Guerrero DO Other Provider Active S tart: April 10, 2025 Dr. Steph Travis MD Other Provider Active St art: April 10, 2025 Dr. Albaro Lee MD Other Provider Active Start: April 10, 2025 Dr. Johnie Ratliff MD Other Provider Active Sta rt: April 10, 2025 Dr. Michele Joyce MD Other Provider Active Star t: April 10, 2025 Dr. Waleska Wallace MD Other Provider Active Star t: April 10, 2025 Dr. Italo Petty MD Other Provider Active S tart: April 10, 2025 Maximo BRUNNER PA Other Provider Active Start: April 10, 2025 Team Status: Active Member Role Status Dates [facility] KANNAN, PA-C Primary Care Provider Active Start: April 11, 2025 Dr. Papo Sumner MD Admit Provider Active Start : April 11, 2025 Dr. Papo Sumner MD Referring Provider Active S tart: April 11, 2025 Dr. Papo Sumner MD Other Provider Active Start : April 11, 2025 Dr. Amos Fontaine DO Other Provider Active Start: April 11, 2025 Dr. Matteo Griggs MD Other Provider Active St art: April 11, 2025 Dr. Destiny Banerjee MD Other Provider Active St art: April 11, 2025 Dr. Markus Boles DO Other Provider Active Start: April 11, 2025 Dr. Markus Serra MD Other Provider Active Star t: April 11, 2025 Dr. Papo Oconnor DO Other Provider Active Star t: April 11, 2025 Dr. Kathrine Triplett MD Other Provider Active Sta rt: April 11, 2025 Dr. Jose A Murry MD Other Provider Active S tart: April 11, 2025 Dr. Maame Reese DO Other Provider Active Start : April 11, 2025 Dr. Wiley Guerrero DO Attending Provider Active Start: April 11, 2025 Dr. Wiley Guerrero DO Other Provider Active S tart: April 11, 2025 Dr. Steph Travis MD Other Provider Active St art: April 11, 2025 Dr. Albaro Lee MD Other Provider Active Start: April 11, 2025 Dr. Johnie Ratliff MD Other Provider Active Sta rt: April 11, 2025 Dr. Michele Joyce MD Other Provider Active Star t: April 11, 2025 Dr. Waleska Wallace MD Other Provider Active Star t: April 11, 2025 Dr. Italo Petty MD Other Provider Active S tart: April 11, 2025 AKNNAN Fine Other Provider Active Start: April 11, 2025 Team Status: Active Member Role Status [facility] KANNAN PA-C Primary Care Provider Active Start: April 11, 2025 Dr. Papo Sumner MD Admit Provider Active Start : April 11, 2025 Dr. Papo Sumner MD Attending Provider Active S tart: April 11, 2025 Dr. Papo Sumner MD Referring Provider Active S tart: April 11, 2025 Dr. Papo Sumner MD Other Provider Active Start : April 11, 2025 Dr. Amos Fontaine DO Other Provider Active Start: April 11, 2025 Dr. Matteo Griggs MD Other Provider Active St art: April 11, 2025 Dr. Destiny Banerjee MD Other Provider Active St art: April 11, 2025 Dr. Markus Boles DO Other Provider Active Start: April 11, 2025 Dr. Markus Serra MD Other Provider Active Star t: April 11, 2025 Dr. Papo Oconnor , DO Other Provider Active Star t: April 11, 2025 Dr. Kathrine Triplett MD Other Provider Active Sta rt: April 11, 2025 Dr. Jose A Murry MD Other Provider Active S tart: April 11, 2025 Dr. Maame Reese , DO Other Provider Active Start : April 11, 2025 Dr. Wiley Guerrero , DO Other Provider Active S tart: April 11, 2025 Dr. Steph Travis MD Other Provider Active St art: April 11, 2025 Dr. Albaro Lee MD Other Provider Active Start: April 11, 2025 Dr. Johnie Ratliff MD Other Provider Active Sta rt: April 11, 2025 Dr. Michele Joyce MD Other Provider Active Star t: April 11, 2025 Dr. Waleska Wallace MD Other Provider Active Star t: April 11, 2025 Dr. Italo Petty MD Other Provider Active S tart: April 11, 2025 Maximo BRUNNER PA Other Provider Active Start: April 11, 2025 Team Status: Active Member Role Status Dates Amanda BRUNNER PA-C Primary Care Provider Active Start: April 12, 2025 Dr. Papo Sumner MD Admit Provider Active Start : April 12, 2025 Dr. Papo Sumner MD Referring Provider Active S tart: April 12, 2025 Dr. Papo Sumner MD Other Provider Active Start : April 12, 2025 Dr. Amos Fontaine , Other Provider Active Start: April 12, 2025 Dr. Matteo Griggs MD Other Provider Active St art: April 12, 2025 Dr. Destiny Banerjee MD Other Provider Active St art: April 12, 2025 Dr. Markus Boles , DO Other Provider Active Start: April 12, 2025 Dr. Markus Serra MD Other Provider Active Star t: April 12, 2025 Dr. Papo Oconnor , DO Other Provider Active Star t: April 12, 2025 Dr. Kathrine Triplett MD Other Provider Active Sta rt: April 12, 2025 Dr. Jose A Murry MD Other Provider Active S tart: April 12, 2025 Dr. Maame Reese , DO Other Provider Active Start : April 12, 2025 Dr. Wiley Guerrero , DO Other Provider Active S tart: April 12, 2025 Dr. Steph Travis MD Other Provider Active St art: April 12, 2025 Dr. Albaro Lee MD Other Provider Active Start: April 12, 2025 Dr. Johnie Ratliff MD Other Provider Active Sta rt: April 12, 2025 Dr. Michele Joyce MD Other Provider Active Star t: April 12, 2025 Dr. Waleska Wallace MD Other Provider Active Star t: April 12, 2025 Dr. Italo Petty MD Other Provider Active S tart: April 12, 2025 Maximo BRUNNER PA Other Provider Active Start: April 12, 2025 KANNAN Bermudez Attending Provider Active Star t: April 12, 2025 Team Status: Active Member Role Status Dates [facility] KANNAN, PA-C Primary Care Provider Active Start: April 12, 2025 Dr. Papo Sumner MD Admit Provider Active Start : April 12, 2025 Dr. Papo Sumner MD Referring Provider Active S tart: April 12, 2025 Dr. Papo Sumner MD Other Provider Active Start : April 12, 2025 Dr. Amos Fontaine , Other Provider Active Start: April 12, 2025 Dr. Matteo Griggs MD Other Provider Active St art: April 12, 2025 Dr. Destiny Banerjee MD Other Provider Active St art: April 12, 2025 Dr. Markus Boles , Other Provider Active Start: April 12, 2025 Dr. Markus Serra MD Other Provider Active Star t: April 12, 2025 Dr. Papo Oconnor , Other Provider Active Star t: April 12, 2025 Dr. Kathrine Triplett MD Other Provider Active Sta rt: April 12, 2025 Dr. Jose A Murry MD Other Provider Active S tart: April 12, 2025 Dr. Maame Reese , Other Provider Active Start : April 12, 2025 Dr. Wiley Guerrero DO Attending Provider Active Start: April 12, 2025 Dr. Wiley Guerrero , DO Other Provider Active S tart: April 12, 2025 Dr. Steph Travis MD Other Provider Active St art: April 12, 2025 Dr. Albaro Lee MD Other Provider Active Start: April 12, 2025 Dr. Johnie Ratliff MD Other Provider Active Sta rt: April 12, 2025 Dr. Michele Joyce MD Other Provider Active Star t: April 12, 2025 Dr. Waleska Wallace MD Other Provider Active Star t: April 12, 2025 Dr. Italo Petty MD Other Provider Active S tart: April 12, 2025 Maximo BRUNNER PA Other Provider Active Start: April 12, 2025 Team Status: Active Member Role Status [facility] KANNAN, PA-C Primary Care Provider Active Start: April 13, 2025 Dr. Papo Sumner MD Admit Provider Active Start : April 13, 2025 Dr. Papo Sumner MD Referring Provider Active S tart: April 13, 2025 Dr. Papo Sumner MD Other Provider Active Start : April 13, 2025 Dr. Amos Fontaine , Other Provider Active Start: April 13, 2025 Dr. Matteo Griggs MD Other Provider Active St art: April 13, 2025 Dr. Destiny Banerjee MD Other Provider Active St art: April 13, 2025 Dr. Markus Boles , Other Provider Active Start: April 13, 2025 Dr. Markus Serra MD Other Provider Active Star t: April 13, 2025 Dr. Papo Oconnor , Other Provider Active Star t: April 13, 2025 Dr. Kathrine Triplett MD Other Provider Active Sta rt: April 13, 2025 Dr. Jose A Murry MD Other Provider Active S tart: April 13, 2025 Dr. Maame Reese , Other Provider Active Start : April 13, 2025 Dr. Wiley Guerrero , Attending Provider Active Start: April 13, 2025 Dr. Wiley Guerrero , Other Provider Active S tart: April 13, 2025 Dr. Steph Travis MD Other Provider Active St art: April 13, 2025 Dr. Albaro Lee MD Other Provider Active Start: April 13, 2025 Dr. Johnie Ratliff MD Other Provider Active Sta rt: April 13, 2025 Dr. Michele Joyce MD Other Provider Active Star t: April 13, 2025 Dr. Waleska Wallace MD Other Provider Active Star t: April 13, 2025 Dr. Italo Petty MD Other Provider Active S tart: April 13, 2025 Maximo BRUNNER PA Other Provider Active Start: April 13, 2025 Team Status: Active Member Role Status [facility] [place] Shruti BRUNNER PA-C Primary Care Provider Active Start: April 10, 2025 Dr. Papo Sumner MD Admit Provider Active Start : April 10, 2025 Dr. Papo Sumner MD Other Provider Active Start : April 10, 2025 Dr. Amos Fontaine DO Other Provider Active Start: April 10, 2025 Dr. Matteo Griggs MD Other Provider Active St art: April 10, 2025 Dr. Destiny Banerjee MD Other Provider Active St art: April 10, 2025 Dr. Markus Boles DO Other Provider Active Start: April 10, 2025 Dr. Markus Serra MD Other Provider Active Star t: April 10, 2025 Dr. Papo Oconnor DO Other Provider Active Star t: April 10, 2025 Dr. Kathrine Triplett MD Other Provider Active Sta rt: April 10, 2025 Dr. Jose A Murry MD Other Provider Active S tart: April 10, 2025 Dr. Maame Reese DO Other Provider Active Start : April 10, 2025 Dr. Wiley Guerrero DO Attending Provider Active Start: April 10, 2025 Dr. Wiley Guerrero DO Other Provider Active S tart: April 10, 2025 Dr. Steph Travis MD Other Provider Active St art: April 10, 2025 Dr. Albaro Lee MD Other Provider Active Start: April 10, 2025 Dr. Johnie Ratliff MD Other Provider Active Sta rt: April 10, 2025 Dr. Michele Joyce MD Other Provider Active Star t: April 10, 2025 Dr. Waleska Wallace MD Other Provider Active Star t: April 10, 2025 Dr. Italo Petty MD Other Provider Active S tart: April 10, 2025 Maximo BRUNNER PA Other Provider Active Start: April 10, 2025 Team Status: Active Member Role Status Dates [place] Shruti BRUNNER PA-C Primary Care Provider Active Start: April 11, 2025 Dr. Papo Sumner MD Admit Provider Active Start : April 11, 2025 Dr. Papo Sumner MD Other Provider Active Start : April 11, 2025 Dr. Amos Fontaine , DO Other Provider Active Start: April 11, 2025 Dr. Matteo Griggs MD Other Provider Active St art: April 11, 2025 Dr. Destiny Banerjee MD Other Provider Active St art: April 11, 2025 Dr. Markus Boles , DO Other Provider Active Start: April 11, 2025 Dr. Markus Serra MD Other Provider Active Star t: April 11, 2025 Dr. Papo Oconnor , DO Other Provider Active Star t: April 11, 2025 Dr. Kathrine Triplett MD Other Provider Active Sta rt: April 11, 2025 Dr. Jose A Murry MD Other Provider Active S tart: April 11, 2025 Dr. Maame Reese , Other Provider Active Start : April 11, 2025 Dr. Wiley Guerrero , Attending Provider Active Start: April 11, 2025 Dr. Wiley Guerrero , Other Provider Active S tart: April 11, 2025 Dr. Steph Travis MD Other Provider Active St art: April 11, 2025 Dr. Albaro Lee MD Other Provider Active Start: April 11, 2025 Dr. Johnie Ratliff MD Other Provider Active Sta rt: April 11, 2025 Dr. Michele Joyce MD Other Provider Active Star t: April 11, 2025 Dr. Waleska Wallace MD Other Provider Active Star t: April 11, 2025 Dr. Italo Petty MD Other Provider Active S tart: April 11, 2025 KANNAN Fine Other Provider Active Start: April 11, 2025 Team Status: Active Member Role Status Dates KANNAN [place] Primary Care Provider Active Start: April 12, 2025 Dr. Papo Sumner MD Admit Provider Active Start : April 12, 2025 Dr. Papo Sumner MD Other Provider Active Start : April 12, 2025 Dr. Amos Fontaine , Other Provider Active Start: April 12, 2025 Dr. Matteo Griggs MD Other Provider Active St art: April 12, 2025 Dr. Destiny Banerjee MD Other Provider Active St art: April 12, 2025 Dr. Markus Boles , Other Provider Active Start: April 12, 2025 Dr. Markus Serra MD Other Provider Active Star t: April 12, 2025 Dr. Papo Oconnor DO Other Provider Active Star t: April 12, 2025 Dr. Kathrine Triplett MD Other Provider Active Sta rt: April 12, 2025 Dr. Jose A Murry MD Other Provider Active S tart: April 12, 2025 Dr. Maame Reese DO Other Provider Active Start : April 12, 2025 Dr. Wiley Guerrero DO Attending Provider Active Start: April 12, 2025 Dr. Wiley Guerrero DO Other Provider Active S tart: April 12, 2025 Dr. Steph Travis MD Other Provider Active St art: April 12, 2025 Dr. Albaro Lee MD Other Provider Active Start: April 12, 2025 Dr. Johnie Ratliff MD Other Provider Active Sta rt: April 12, 2025 Dr. Michele Joyce MD Other Provider Active Star t: April 12, 2025 Dr. Waleska Wallace MD Other Provider Active Star t: April 12, 2025 Dr. Italo Petty MD Other Provider Active S tart: April 12, 2025 KANNAN Fine Other Provider Active Start: April 12, 2025 Team Status: Active Member Role Status [facility] KANNAN PA-C Primary Care Provider Active Start: April 13, 2025 Dr. Papo Sumner MD Admit Provider Active Start : April 13, 2025 Dr. aPpo Sumner MD Referring Provider Active S tart: April 13, 2025 Dr. Papo Sumner MD Other Provider Active Start : April 13, 2025 Dr. Amos Fontaine , Other Provider Active Start: April 13, 2025 Dr. Matteo Griggs MD Other Provider Active St art: April 13, 2025 Dr. Destiny Banerjee MD Other Provider Active St art: April 13, 2025 Dr. Markus Boles DO Other Provider Active Start: April 13, 2025 Dr. Markus Serra MD Other Provider Active Star t: April 13, 2025 Dr. Papo Jopperi , DO Other Provider Active Star t: April 13, 2025 Dr. Kathrine Triplett MD Other Provider Active Sta rt: April 13, 2025 Dr. Jose A Murry MD Other Provider Active S tart: April 13, 2025 Dr. Maame Reese , Other Provider Active Start : April 13, 2025 Dr. Wiley Guerrero , DO Other Provider Active S tart: April 13, 2025 Dr. Steph Travis MD Other Provider Active St art: April 13, 2025 Dr. Albaro Lee MD Other Provider Active Start: April 13, 2025 Dr. Johnie Ratliff MD Other Provider Active Sta rt: April 13, 2025 Dr. Michele Joyce MD Other Provider Active Star t: April 13, 2025 Dr. Waleska Wallace MD Other Provider Active Star t: April 13, 2025 Dr. Italo Petty MD Other Provider Active S tart: April 13, 2025 KANNAN Fine Other Provider Active Start: April 13, 2025 KANNAN Bermudez Attending Provider Active Star t: April 13, 2025 Team Status: Active Member Role Status Dates Amanda Shruti BRUNNER, PA-C Primary Care Provider Active Start: April 13, 2025 Dr. Papo Sumner MD Admit Provider Active Start : April 13, 2025 Dr. Papo Sumner MD Other Provider Active Start : April 13, 2025 Dr. Amos Fontaine , Other Provider Active Start: April 13, 2025 Dr. Matteo Griggs MD Other Provider Active St art: April 13, 2025 Dr. Destiny Banerjee MD Other Provider Active St art: April 13, 2025 Dr. Markus Boles , DO Other Provider Active Start: April 13, 2025 Dr. Markus Serra MD Other Provider Active Star t: April 13, 2025 Dr. Papo Oconnor , DO Other Provider Active Star t: April 13, 2025 Dr. Kathrine Triplett MD Other Provider Active Sta rt: April 13, 2025 Dr. Jose A Murry MD Other Provider Active S tart: April 13, 2025 Dr. Maame Reese , DO Other Provider Active Start : April 13, 2025 Dr. Wiley Guerrero , DO Attending Provider Active Start: April 13, 2025 Dr. Wiley Guerrero , DO Other Provider Active S tart: April 13, 2025 Dr. Steph Travis MD Other Provider Active St art: April 13, 2025 Dr. Albaro Lee MD Other Provider Active Start: April 13, 2025 Dr. Johnie Ratliff MD Other Provider Active Sta rt: April 13, 2025 Dr. Michele Joyce MD Other Provider Active Star t: April 13, 2025 Dr. Waleska Wallace MD Other Provider Active Star t: April 13, 2025 Dr. Italo Petty MD Other Provider Active S tart: April 13, 2025 KANNAN Fine Other Provider Active Start: April 13, 2025 Team Status: Active Member Role Status Dates [facility] KANNAN [place] Primary Care Provider Active Start: April 17, 2025 Dr. Papo Sumner MD Admit Provider Active Start : April 17, 2025 Dr. Papo Sumner MD Referring Provider Active S tart: April 17, 2025 Dr. Papo Sumner MD Other Provider Active Start : April 17, 2025 Dr. Amos Fontaine , DO Other Provider Active Start: April 17, 2025 Dr. Matteo Griggs MD Other Provider Active St art: April 17, 2025 Dr. Destiny Banerjee MD Other Provider Active St art: April 17, 2025 Dr. Markus oBles , DO Other Provider Active Start: April 17, 2025 Dr. Markus Serra MD Other Provider Active Star t: April 17, 2025 Dr. Papo Oconnor , DO Other Provider Active Star t: April 17, 2025 Dr. Kathrine Triplett MD Other Provider Active Sta rt: April 17, 2025 Dr. Jose A Murry MD Other Provider Active S tart: April 17, 2025 Dr. Maame Reese , Other Provider Active Start : April 17, 2025 Dr. Wiley Guerrero , DO Other Provider Active S tart: April 17, 2025 Dr. Steph Travis MD Other Provider Active St art: April 17, 2025 Dr. Albaro Lee MD Other Provider Active Start: April 17, 2025 Dr. Johnie Ratliff MD Other Provider Active Sta rt: April 17, 2025 Dr. Michele Joyce MD Other Provider Active Star t: April 17, 2025 Dr. Waleska Wallace MD Other Provider Active Star t: April 17, 2025 Dr. Italo Petty MD Other Provider Active S tart: April 17, 2025 KANNAN Fine Other Provider Active Start: April 17, 2025 KANNAN Bermudez Attending Provider Active Star t: April 17, 2025 Team Status: Inactive Member Role Status Dates Amanda BRUNNER PA-C Primary Care Provider Active Start: April 24, 2025 End: April 24, 2025 Amanda BRUNNER PA-C Referring Provider Active Start: April 24, 2025 End: April 24, 2025 KANNAN Bermudez Attending Provider Active Star t: April 24, 2025 End: April 24, 2025 Goals (unrecognized section and content) Goals [...] BE BASED ON THE PRIMARY CLINICAL RECORDS. [facility]. provides no warranty or guarantee of the accuracy or completeness of information in this document.
[2025-04-29 12:50] LABS: Bacteria 0 SEEN /hpf (None Seen); Mucous, Urine 0 SEEN /hpf (<or=2+); Red Blood Cells-Urine 0 SEEN /hpf (0-5)
[2025-04-29 13:01] LABS: Troponin T High Sensitivity 17 ng/L (<=14)
[2025-04-29 13:02] VITALS: BP 165/61; PULSE 62
[2025-04-29 13:06] LABS: Anion Gap 15 (5-15); BUN 24 mg/dL (4-19); BUN/Creat Ratio 24.9 RATIO (10-20); Carbon Dioxide 20.6 mmol/L (21.0-32.0); Chloride 102 mmol/L (98-108); Creatinine, Serum 0.98 mg/dL (0.70-1.20); EST Glomerular Filtration Rate 61 (>60); Glucose 113 mg/dL (70-99); Potassium 4.1 mmol/L (3.3-5.1); Sodium Level 138 mmol/L (133-145)
[2025-04-29 13:13] LABS: Color, Urine Straw (Yellow); Glucose, Dipstick Normal (Normal); Ketone-Dipstick Negative (Negative); Leukocyte Esterase-Dipstick Negative /ul (Negative); Nitrite-Dipstick Negative (Negative); Occult Blood-Urine Negative /ul (Negative); Protein-Dipstick 15 mg/dl (Negative); Urine Bilirubin Dipstick Negative (Negative); Urine Clarity Clear (Clear); Urine Urobilinogen Normal (Normal)
[2025-04-29 13:37] LABS: Squamous Epithelial Cells - UA 0-5 SEEN /hpf (5-10); White Blood Cells 0-5 SEEN /hpf (0-5)
[2025-04-29 13:58] VITALS: BP 144/56; PULSE 67; RESP 20; TEMP 36.6; O2SAT 100
== END 2025-04-29 14:00 | disposition home or self-care (01) ==
PROVIDERS: Physician Assistant; Emergency Provider Emergency Medicine; PCP Family Medicine; Referring Provider Emergency Medicine; Visit Provider Emergency Medicine
DX: Z86.79 Personal history of other diseases of the circulatory system (principal); J44.9 Chronic obstructive pulmonary disease, unspecified; R53.83 Other fatigue; E78.00 Pure hypercholesterolemia, unspecified; I10 Essential (primary) hypertension; Z87.891 Personal history of nicotine dependence; Z79.51 Long term (current) use of inhaled steroids; Z79.82 Long term (current) use of aspirin; Z98.41 Cataract extraction status, right eye; Z98.42 Cataract extraction status, left eye
CPT/HCPCS: 71046; 80048; 81001; 84443; 84484; 85025; 93005; 99283

== ENCOUNTER 2025-05-29 15:35 | Inpatient (IN) | payer MEDICARE, OTHER, SELFPAY ==
--- NOTE | 2025-05-15 17:43 | PAT.ANESEVAL ---
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 When Was Last Pacemaker Check QUESTION #4 FULL TEXT: You/Your Family Experience fever (hyperthermia) with Anesthesia Last Oral Intake Last Oral intake: Last Oral Intake NPO since Meds taken in AM with sips of water? Meds patient instructed to take am of surgery PONV PONV - collection systems modeler: PONV - collection systems modeler Female Yes 05/14/25 08:37 HX of Motion Sickness Yes 05/14/25 08:37 HX of N/V After Surgery Yes 05/14/25 08:37 Non-Smoker Yes 05/14/25 08:37 Duration of Surgery greater Yes 05/14/25 08:37 than 60 minutes Number of Risk Factors 5 05/14/25 08:37 PONV Score Severe Risk 05/14/25 08:37 Height & Weight Height & Weight: Anesthesia: Height & Weight Height 5 ft 3 in 04/10/25 09:45 Respiratory Assessment Respiratory Assessment - collection systems modeler: Respiratory Tract Infection Hx - collection systems modeler Hx Respiratory Tract Infection No 05/14/25 08:37 STOP Sleep Apnea STOP Sleep Apnea - collection systems modeler: STOP Sleep Apnea - collection systems modeler Hx Hypertension Yes: several meds 05/14/25 08:37 Hx Sleep Apnea No 05/14/25 08:37 CPAP BIPAP Do you snore loudly (louder No 05/14/25 08:37 than talking or can be heard Do you often feel tired/ No 05/14/25 08:37 fatigued/ sleepy during daytime? Has anyone observed you stop No 05/14/25 08:37 breathing during sleep? STOP Results Negative 05/14/25 08:37 QUESTION #5 FULL TEXT : Do you snore loudly (louder than talking or can be heard through closed doors)? 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 Specify any problems Hx of Preganancy in last 3 No 05/14/25 08:37 Months Nurse Filling Out Transfusion JZOLLYOSI 05/14/25 08:37 & Questions: Date: 05/14/25 05/14/25 08:37 Time: 08:42 05/14/25 08:37 Patient unable to answer at this time (ie. confused, unrespo /Reproduction History /Reproductive History - collection systems modeler: /Reproductive Hx- collection systems modeler Hx Now No 05/14/25 08:37 Gestational Age (in weeks): EDC: Hx Hx Para Hx Section SAB No 05/14/25 08:37 PFSH Medical History (Updated 05/14/25 @ 08:37 by Trista Castaneda) Back pain Wears glasses Post-menopausal Anxiety Thyroid disease Arthritis History of renal disease High cholesterol Easy bruising Gastric reflux History of hiatal hernia Graves disease Former smoker Cardiology follow-up encounter History of echocardiogram History of stress test Hiatal hernia Carotid stenosis, bilateral Pneumonia COPD (chronic obstructive pulmonary disease) Bronchitis Chest pain, unspecified Asthma HTN (hypertension) Cough Shortness of breath Home Medications ?Medication ?Instructions ?Recorded ?Last Taken ?Type albuterol sulfate 90 mcg/actuation 2 puff inhalation Q4H PRN 08/24/23 Unknown Rx aerosol inhaler (Ventolin HFA) shortness of breath or wheezing #8.5 grams cetirizine 10 mg tablet (Zyrtec) 10 mg PO DAILY PRN allergy symptoms 08/24/23 04/08/25 07:00 History levothyroxine 150 mcg tablet 150 mcg PO QDAY THYROID 02/14/24 04/09/25 04:30 History (Synthroid) fluticasone propionate 230 2 inh inhalation BID ASTHMA #1 ea 02/13/25 04/09/25 04:30 Rx mcg-salmeterol 21 mcg/actuation HFA inhaler (Advair HFA) aspirin 81 mg tablet,delayed 81 mg PO DAILY SUPPLEMENT #360 tabs 03/01/25 04/09/25 04:30 Rx release (Adult Aspirin Regimen) montelukast 10 mg tablet 10 mg PO QPM ASTHMA 04/09/25 04/08/25 17:00 History amlodipine 10 mg tablet 10 mg PO DAILY bp #30 tabs 04/13/25 Unknown Rx clonidine HCl 0.1 mg tablet 0.1 mg PO BID bp #60 tabs 04/13/25 Unknown Rx furosemide 40 mg tablet 40 mg PO BIDLX water pill #60 tabs 04/13/25 Unknown Rx hydralazine 50 mg tablet 100 mg (2 x 50 mg) PO TID bp #180 04/13/25 Unknown Rx tabs metoprolol succinate 50 mg 150 mg (3 x 50 mg) PO BID bp #180 04/13/25 Unknown Rx tablet,extended release 24 hr tabs potassium chloride 10 mEq 20 meq (2 x 10 mEq) PO DAILY 04/13/25 Unknown Rx tablet,extended release (Klor-Con) supplement #60 tabs Allergy/AdvReac Type Severity Reaction Status Date / Time shellfish derived Allergy Anaphylaxis Verified 05/14/25 08:17 Iodinated Contrast Media AdvReac Intermediate Rash Verified 05/14/25 08:17 acetaminophen (From [place]) AdvReac Constipatio Verified 05/14/25 08:17 n hydrocodone (From [place]) AdvReac Constipatio Verified 05/14/25 08:17 n levofloxacin (From Leva[place]) AdvReac GI upset Verified 05/14/25 08:17 losartan AdvReac Abd Verified 05/14/25 08:17 cramps/diarrhea prednisone AdvReac Other Verified 05/14/25 08:17 Family History Father Heart disease Asthma Mother CAD (coronary artery disease) Sister PAD (peripheral artery disease) Cancer Lung Diabetes Grandfather Diabetes Leukemia Surgical History (Updated 05/07/25 @ 00:00 by Background Dawend[place]) History of bilateral cataract extraction History of cardiac catheterization History of urethral stent Eyelid retraction unspecified eye, unspecified lid History of D&C Social History household members: spouse housing: house pets and animals: Yes pets and animals: dog(s) Smoking Status: Former smoker Tobacco: How many years used: 30 how long ago did patient quit smokin, 1ppd second hand exposure: Yes alcohol intake: never substance use type: does not use Audit: Pertinent Findings Pertinent Findings EKG Perinent findings: 04/29/2025 normal sinus rhythm. Stress test pertinent findings: 03/20/2019. EF of 60%. No areas of reversibility are noted to suggest ischemia. Echo (EF%) pertinent findings: April 10, 2025. EF is 60%. RVSP is 37 mmHg. No aortic stenosis. Recommendation Anesthesia Recommendation Anesthesia recommendation: OPTIMIZED for anesthesia (Patient did have blood pressure issues after her left carotid in April 2025. Close blood pressure monitoring.)
[2025-05-29] VITALS (28 sets, daily range): BP systolic 105–143; BP diastolic 41–99; PULSE 48–71; RESP 11–18; TEMP 35.9–36.6; O2SAT 91–100; BMI 30.4; BMI 26.5
[2025-05-29] MEDS: Lactated Ringers 1,000 ML 15 ML IV (10:13)
--- NOTE | 2025-05-29 10:43 | PCM.PRE.AN2 ---
ASA Classification* ASA Classification ASA Classification: 3 Assessment & Plan Anesthesia* Anesthesia Assessment Anesthesia Assessment: Discussed sedation and/or anesthesia options, risks, benefits, and alternatives with patient/parents/legal guardian/POA. Questions invited. The patient/parents/legal guardian/POA seems to understand and agrees to proceed with anesthesia plan. Reviewed the physical assessment, medical history, allergy history and patient home medications list prior to surgery/procedure/anesthetic and documented any changes. Performed airway and anesthesia risk assessments. Anesthesia Type Anesthesia Type: General (Patient would like to hold off on the scopolamine patch and use it only if needed in recovery.) History Source History Obtained from:: Patient and Chart Anesthesia Focused Assessment* Temperature: 98 F Pulse Rate: 61 Blood Pressure: 143/60 Respiratory Rate: 16 Pulse Ox: 100 Oxygen Delivery Method: Room Air Airway Assessment Mouth opens: >3 cm Mallampati Score: I Teeth Condition: Caps/Crowns (Patient has multiple caps and crowns. They are all tight.) Neck Range of motion (ROM): Limited ROM (Slight Decrease) Labs Anesthesia Preop lab: CBC WBC 13.1 K/mm3 (4.4-11.0) H 04/29/25 12:12 04/29/25 RBC 4.22 M/mm3 (4.2-5.4) 04/29/25 12:12 04/29/25 Hgb 13.1 g/dL (12.0-15.0) 04/29/25 12:12 04/29/25 Hct 39.2 % (37-47) 04/29/25 12:12 04/29/25 Plt Count 471 K/mm3 (150-450) H 04/29/25 12:12 04/29/25 CHEMISTRY Potassium 4.1 mmol/L (3.3-5.1) 04/29/25 12:12 04/29/25 Sodium 138 mmol/L (133-145) 04/29/25 12:12 04/29/25 BUN 24 mg/dL (4-19) H 04/29/25 12:12 04/29/25 Creatinine 0.98 mg/dL (0.70-1.20) 04/29/25 12:12 04/29/25 Glucose 113 mg/dL (70-99) H 04/29/25 12:12 04/29/25 POC Glucose 81 mg/dL (70-110) 03/19/19 23:03 03/19/19 TSH 1.160 uIU/mL (0.300-4.200) 04/29/25 12:12 04/29/25 COAG PT 12.1 SECONDS (11.7-14.9) 03/20/19 04:05 03/20/19 Pre-Assessment Diagnosis/Proposed Procedure Planned Operative Procedure(s): (R) Right Carotid Endarterectomy Anesthesia History Anesthesia History - gis web developer: Anesthesia History - gis web developer Hx Hospitalization Yes: april with BP problems 05/14/25 08:37 following L carotid Any Problems With Anesthesia Yes: ponv 05/14/25 08:37 Cholinesterase deficiency No 05/14/25 08:37 You/Your Family Experience No 05/14/25 08:37 fever (hyperthermia) with Relationship Recent Exposure to Contagious No 05/29/25 10:10 Disease Does patient have nerve No 05/14/25 08:37 stimulator Patient instructed to have device shut off --Does patient have Pacemaker No 05/29/25 10:10 or ICD? When Was Last Pacemaker Check QUESTION #4 FULL TEXT: You/Your Family Experience fever (hyperthermia) with Anesthesia Last Oral Intake Last Oral intake: Last Oral Intake NPO since 07:15 05/29/25 10:10 Meds taken in AM with sips of Yes 05/29/25 10:10 water? Meds patient instructed to see med list 05/29/25 10:10 take am of surgery Any additional information?: Yes NPO since: 07:15 (Patient took her a.m. meds with water at 7:15 AM.) Meds taken in AM with sips of water?: Yes PONV PONV - gis web developer: PONV - gis web developer Female Yes 05/14/25 08:37 HX of Motion Sickness Yes 05/14/25 08:37 HX of N/V After Surgery Yes 05/14/25 08:37 Non-Smoker Yes 05/14/25 08:37 Duration of Surgery greater Yes 05/14/25 08:37 than 60 minutes Number of Risk Factors 5 05/14/25 08:37 PONV Score Severe Risk 05/14/25 08:37 Height & Weight Height & Weight: Anesthesia: Height & Weight Height 5 ft 3 in 05/29/25 10:10 Weight: 78 kg 05/29/25 10:10 Body Mass Index (BMI) 30.4 05/29/25 10:10 Respiratory Assessment Respiratory Assessment - gis web developer: Respiratory Tract Infection Hx - gis web developer Hx Respiratory Tract Infection No 05/14/25 08:37 STOP Sleep Apnea STOP Sleep Apnea - gis web developer: STOP Sleep Apnea - gis web developer Hx Hypertension Yes: several meds 05/14/25 08:37 Hx Sleep Apnea No 05/14/25 08:37 CPAP BIPAP Do you snore loudly (louder No 05/14/25 08:37 than talking or can be heard Do you often feel tired/ No 05/14/25 08:37 fatigued/ sleepy during daytime? Has anyone observed you stop No 05/14/25 08:37 breathing during sleep? STOP Results Negative 05/14/25 08:37 QUESTION #5 FULL TEXT : Do you snore loudly (louder than talking or can be heard through closed doors)? 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 Specify any problems Hx of Preganancy in last 3 No 05/14/25 08:37 Months Nurse Filling Out Transfusion JZOLLINGE 05/14/25 08:37 & Questions: Date: 05/14/25 05/14/25 08:37 Time: 08:42 05/14/25 08:37 Patient unable to answer at this time (ie. confused, unrespo /Reproduction History /Reproductive History - gis web developer: /Reproductive Hx- gis web developer Hx Now No 05/14/25 08:37 Gestational Age (in weeks): EDC: Hx Hx Para Hx Section SAB No 05/14/25 08:37 Active Medications Active Medications: Current Medications Generic Name Dose Route Start Last Admin Trade Name Freq PRN Reason Stop Dose Admin Cefazolin Sodium 2 gm/ Sodium 110 mls @ 200 mls/hr 05/29/25 11:30 Chloride IV 05/29/25 12:02 INTRAOP ONE Lactated Ringer's 1,000 mls @ 15 mls/hr 05/29/25 10:15 05/29/25 10:13 IV 15 mls/hr .Q48H SUJIT Administration PFSH Medical History Back pain Wears glasses Post-menopausal Anxiety Thyroid disease Arthritis History of renal disease High cholesterol Easy bruising Gastric reflux History of hiatal hernia Graves disease Former smoker Cardiology follow-up encounter History of echocardiogram History of stress test Hiatal hernia Carotid stenosis, bilateral Pneumonia COPD (chronic obstructive pulmonary disease) Bronchitis Chest pain, unspecified Asthma HTN (hypertension) Cough Shortness of breath Home Medications ?Medication ?Instructions ?Recorded ?Last Taken ?Type albuterol sulfate 90 mcg/actuation 2 puff inhalation Q4H PRN 08/24/23 Unknown Rx aerosol inhaler (Ventolin HFA) shortness of breath or wheezing #8.5 grams levothyroxine 150 mcg tablet 150 mcg PO QDAY THYROID 02/14/24 05/29/25 07:15 History (Synthroid) fluticasone propionate 230 2 inh inhalation BID ASTHMA #1 ea 02/13/25 05/29/25 07:15 Rx mcg-salmeterol 21 mcg/actuation HFA inhaler (Advair HFA) aspirin 81 mg tablet,delayed 81 mg PO DAILY SUPPLEMENT #360 tabs 03/01/25 05/29/25 07:15 Rx release (Adult Aspirin Regimen) montelukast 10 mg tablet 10 mg PO QPM ASTHMA 04/09/25 05/28/25 17:06 History clonidine HCl 0.1 mg tablet 0.1 mg PO BID bp #60 tabs 04/13/25 05/29/25 07:15 Rx furosemide 40 mg tablet 40 mg PO BIDLX water pill #60 tabs 04/13/25 05/28/25 Rx hydralazine 50 mg tablet 100 mg (2 x 50 mg) PO TID bp #180 04/13/25 05/29/25 07:15 Rx tabs metoprolol succinate 50 mg 150 mg (3 x 50 mg) PO BID bp #180 04/13/25 05/29/25 07:15 Rx tablet,extended release 24 hr tabs potassium chloride 10 mEq 20 meq (2 x 10 mEq) PO DAILY 04/13/25 05/29/25 07:15 Rx tablet,extended release (Klor-Con) supplement #60 tabs amlodipine 5 mg tablet 5 mg PO DAILY htn 05/29/25 05/29/25 07:15 History loratadine 10 mg tablet (Claritin) 10 mg PO DAILY PRN allergic 05/29/25 05/29/25 07:15 History symptoms Allergy/AdvReac Type Severity Reaction Status Date / Time shellfish derived Allergy Anaphylaxis Verified 05/29/25 10:01 Iodinated Contrast Media AdvReac Intermediate Rash Verified 05/29/25 10:01 hydrocodone (From [place]) AdvReac Constipatio Verified 05/29/25 10:01 n levofloxacin (From Levaquin) AdvReac GI upset Verified 05/29/25 10:01 losartan AdvReac Abd Verified 05/29/25 10:01 cramps/diarrhea prednisone AdvReac Other Verified 05/29/25 10:01 Family History Father Heart disease Asthma Mother CAD (coronary artery disease) Sister PAD (peripheral artery disease) Cancer Lung Diabetes Grandfather Diabetes Leukemia Surgical History History of bilateral cataract extraction History of cardiac catheterization History of urethral stent Eyelid retraction unspecified eye, unspecified lid History of D&C Social History household members: spouse housing: house pets and animals: Yes pets and animals: dog(s) Smoking Status: Former smoker Tobacco: How many years used: 30 how long ago did patient quit smokin, 1ppd second hand exposure: Yes alcohol intake: never substance use type: does not use Review of Systems (Anesthesia) ROS Narrative System reviewed and no additional complaints, except as documented. Physical Exam Resp Auscultation: wheezes expiratory wheezes (Patient had some mild end expiratory wheezes. I will have her take her own albuterol metered-dose inhaler prior to surgery.)
--- NOTE | 2025-05-29 11:15 | PCM.HP.STD ---
HPI - General General Date of Admission: 05/29/25 HPI Narrative NOBLE WILDE, is a 75 F who presents with right ICA stenosis, severe asymptomatic. She previously had left CEA ~ 6 weeks prior which she tolerated well though did have reperfusion/hyperperfusion symptoms and hypertension post op. She has recovered well and presents for right CEA. [facility] Medical History Back pain Wears glasses Post-menopausal Anxiety Thyroid disease Arthritis History of renal disease High cholesterol Easy bruising Gastric reflux History of hiatal hernia Graves disease Former smoker Cardiology follow-up encounter History of echocardiogram History of stress test Hiatal hernia Carotid stenosis, bilateral Pneumonia COPD (chronic obstructive pulmonary disease) Bronchitis Chest pain, unspecified Asthma HTN (hypertension) Cough Shortness of breath Home Medications ?Medication ?Instructions ?Recorded ?Last Taken ?Type albuterol sulfate 90 mcg/actuation 2 puff inhalation Q4H PRN 08/24/23 Unknown Rx aerosol inhaler (Ventolin HFA) shortness of breath or wheezing #8.5 grams levothyroxine 150 mcg tablet 150 mcg PO QDAY THYROID 02/14/24 05/29/25 07:15 History (Synthroid) fluticasone propionate 230 2 inh inhalation BID ASTHMA #1 ea 02/13/25 05/29/25 07:15 Rx mcg-salmeterol 21 mcg/actuation HFA inhaler (Advair HFA) aspirin 81 mg tablet,delayed 81 mg PO DAILY SUPPLEMENT #360 tabs 03/01/25 05/29/25 07:15 Rx release (Adult Aspirin Regimen) montelukast 10 mg tablet 10 mg PO QPM ASTHMA 04/09/25 05/28/25 17:06 History clonidine HCl 0.1 mg tablet 0.1 mg PO BID bp #60 tabs 04/13/25 05/29/25 07:15 Rx furosemide 40 mg tablet 40 mg PO BIDLX water pill #60 tabs 04/13/25 05/28/25 Rx hydralazine 50 mg tablet 100 mg (2 x 50 mg) PO TID bp #180 04/13/25 05/29/25 07:15 Rx tabs metoprolol succinate 50 mg 150 mg (3 x 50 mg) PO BID bp #180 04/13/25 05/29/25 07:15 Rx tablet,extended release 24 hr tabs potassium chloride 10 mEq 20 meq (2 x 10 mEq) PO DAILY 04/13/25 05/29/25 07:15 Rx tablet,extended release (Klor-Con) supplement #60 tabs amlodipine 5 mg tablet 5 mg PO DAILY htn 05/29/25 05/29/25 07:15 History loratadine 10 mg tablet (Claritin) 10 mg PO DAILY PRN allergic 05/29/25 05/29/25 07:15 History symptoms Allergy/AdvReac Type Severity Reaction Status Date / Time shellfish derived Allergy Anaphylaxis Verified 05/29/25 10:01 Iodinated Contrast Media AdvReac Intermediate Rash Verified 05/29/25 10:01 hydrocodone (From [place]) AdvReac Constipatio Verified 05/29/25 10:01 n levofloxacin (From Levaquin) AdvReac GI upset Verified 05/29/25 10:01 losartan AdvReac Abd Verified 05/29/25 10:01 cramps/diarrhea prednisone AdvReac Other Verified 05/29/25 10:01 Family History Father Heart disease Asthma Mother CAD (coronary artery disease) Sister PAD (peripheral artery disease) Cancer Lung Diabetes Grandfather Diabetes Leukemia Surgical History History of bilateral cataract extraction History of cardiac catheterization History of urethral stent Eyelid retraction unspecified eye, unspecified lid History of D&C Social History household members: spouse housing: house pets and animals: Yes pets and animals: dog(s) Smoking Status: Former smoker Tobacco: How many years used: 30 how long ago did patient quit smokin, 1ppd second hand exposure: Yes alcohol intake: never substance use type: does not use ROS Constitutional Constitutional: Denies chills, fever(s), frequent falls, lethargy or weakness Eyes Eyes: Denies blind spots, change in vision or loss of vision ENT HEENT: Denies bleeding gums, hoarseness or sore throat Cardiovascular Cardiovascular: Denies abdominal pain, bluish discoloration of hand/feet, chest pain with activity, claudication, cold extremities, cyanosis, dyspnea on exertion, erythema on extremities, irregular heart rhythm, leg edema, leg ulcers, numbness in extremities or weakness in extremities Respiratory/Chest Respiratory/Chest: Denies cough, excessive phlegm production, shortness of breath at rest, shortness of breath with exertion or wheezing Gastrointestinal Gastrointestinal: Denies anorexia, change in stool character, constipation, diarrhea, melena or rectal bleeding Genitourinary Genitourinary: Denies dysuria or hematuria Musculoskeletal Musculoskeletal: Denies abnormal gait Integumentary Integumentary: Reports other Details: ; Denies erythema, non-healing lesions or wounds Neurologic Neurologic: Denies abnormal speech, focal weakness, headache(s), loss of vision, numbness, paresthesias or sensory deficit Hematologic/Lymphatic Hematologic/Lymphatic: Denies easy bleeding, easy bruising or lymphadenopathy Vital Signs Vital Signs Vital Signs: 05/29/25 10:10 05/29/25 10:10 05/29/25 11:00 Temperature 98 F 98 F Temperature Source Temporal Pulse Rate 61 61 Respiratory Rate 16 16 Respiratory Pattern Normal Blood Pressure 143/60 H 143/60 H Blood Pressure Mean 87 Blood Pressure Source Monitor Blood Pressure Position Sitting Blood Pressure Location Left Arm Pulse Ox 100 100 Oxygen Delivery Method Room Air Room Air Weight Weight: 171 lb 15.369 oz Body Mass Index (BMI) 30.4 Physical Exam Const alert, oriented x3, no apparent distress and healthy appearing General Appearance: cooperative; Negative for combative or lethargic Orientation / Consciousness: awake Exam Limitations: no limitations HEENT Head and Scalp: normocephalic and atraumatic Eyes EOMs intact bilaterally General Eye: normal appearance of both eyes Neck full ROM General: trachea midline; Negative for tenderness Thyroid: thyroid normal Resp normal respiratory effort and no use of accessory muscles Effort and Inspection: Negative for labored, stridor or audible wheezes Cardio regular rate and regular rhythm Back/Spine Cervical Spine: cervical ROM normal Extremity full ROM, normal capillary refill and no clubbing, cyanosis or edema Skin no rashes or lesions noted and no wounds Neuro oriented x3, CN's II-XII intact bilaterally, no focal motor deficits and no sensory deficits noted Psych thought process normal, cooperative, affect normal, speech normal and activity/motor behavior normal Assessment & Plan Assessment/Plan (1) Stenosis of right carotid artery without cerebral infarction: PLAN: -right CEA
--- NOTE | 2025-05-29 11:30 | PLAQ_PTH ---
PATIENT: NOBLE WILDE LOC: ICU U#:[id number] AGE/SX: 75/F ROOM: [place] [address] RE05/29/[address]: Dr. Papo Sumner MD : 1950 BED: 1 DIS: 05/30/2025 SPEC #: [id number] RECD: 05/29/25 15:52 STATUS: JJ REKae #: [id number] KAMALA: 05/29/25 11:[address]: Papo Sumner DEPT: SURGICAL PATHOLOGY RECD BY: Juan Puckett ENTERED: 05/30/25 09:21 SP TYPE: PLAQUE OTHR DR: Amanda Bahena PA-C Tissues: A - PLAQUE Procedures: Decalcification bone/plaque Surgery Specimen Level III HEADER OPERATION: Right carotid endarterectomy PRE-OP DIAGNOSIS: Stenosis of right carotid artery without cerebral infarction TISSUE SUBMITTED: A- Right carotid plaque MICROSCOPIC DIAGNOSIS A. Carotid artery, right, plaque, endarterectomy: - Fibrointimal hyperplasia with calcification consistent with atherosclerotic plaque. GROSS DESCRIPTION A. Received in formalin labeled with the patient's name and date of . Designated as right carotid plaque is a 3.0 x 0.8 x 0.8 cm louise-yellow fragmented plaque. Coil Tier sections are submitted in 1 cassette, following decalcification. SD 05/30/2025 CPT:10332,62117
[2025-05-29 15:37] LABS: ACT Activated Clotting Time 124 sec (74-137)
[2025-05-29 15:37] LABS: ACT Activated Clotting Time 239 sec (74-137)
[2025-05-29 15:37] LABS: ACT Activated Clotting Time 233 sec (74-137)
--- NOTE | 2025-05-29 15:40 | OP.PCM_ITS ---
Operative Report (Standard) Operative Information Date of Procedure: 05/29/25 Pre-Operative Diagnosis: right carotid stenosis Post-Operative Diagnosis: same Surgery/Procedure Performed: right carotid endarterectomy occupational health and safety adviser: Yes Vocational Counselor: Beryl Smith Tasks completed by printer assistant: Opening, Closing, Opening & closing and Hemostasis: Tie Type of Anesthesia: General RN Documented Start/Stop Times: Operation Date: 05/29/25 11:30 Case Time Into Pre-Op 05/29/25 09:30 Anesthesia Start 05/29/25 12:00 Into Room 05/29/25 12:00 Procedure Start 05/29/25 13:49 Procedure Start Time: 13:50 Procedure Stop Time: 15:40 Select all DRAINS/GRAFTS/IMPLANTS that apply: Drains Drain details: 19 Fr ABIODUN and Tissue Tissue details: bovine pericardial patch Estimated Blood Loss: 20 Specimen collected: Yes Description of specimen(s) removed: plaque Surgical Findings: see above
--- NOTE | 2025-05-29 15:40 | PCM.OPRPT ---
Operative Report (Standard) Operative Information Date of Procedure: 05/29/25 Pre-Operative Diagnosis: right carotid stenosis Post-Operative Diagnosis: same Surgery/Procedure Performed: right carotid endarterectomy dairy nutrition consultant: Yes Podiatry Assistant: Beryl Smith Tasks completed by neurosurgical physician assistant: Opening, Closing, Opening & closing and Hemostasis: Tie Type of Anesthesia: General RN Documented Start/Stop Times: Operation Date: 05/29/25 11:30 Case Time Into Pre-Op 05/29/25 09:30 Anesthesia Start 05/29/25 12:00 Into Room 05/29/25 12:00 Procedure Start 05/29/25 13:49 Procedure End 05/29/25 15:59 Anesthesia End 05/29/25 16:07 Out of Room 05/29/25 16:07 Into Recovery 05/29/25 16:10 Procedure Start Time: 13:50 Procedure Stop Time: 15:40 Select all DRAINS/GRAFTS/IMPLANTS that apply: Drains Drain details: 19 Fr ABIODUN and Tissue Tissue details: bovine pericardial patch Estimated Blood Loss: 20 Specimen collected: Yes Description of specimen(s) removed: plaque Description of surgery: HPI: Patient is a 75-year-old female with severe asymptomatic right carotid artery stenosis and recent left carotid endarterectomy approximately 6 weeks prior. She presents now for right carotid endarterectomy. Description of procedure: Upon obtaining informed consent and verification correct patient procedure site the patient was taken to the operating where she was placed under general anesthesia. She was then positioned prepped and draped in usual sterile fashion time was performed. Oblique incision made along the anterior border sternocleidomastoid Bovie used to dissect down through subcutaneous tissue to the level of platysma. The platysma was divided and self-retaining retractors put in position with further dissection then carried down to the sternocleidomastoid. The sternocleidomastoid was mobilized and retracted posterior laterally exposing the carotid sheath. Sharp dissection used to dissect free the anterior border the jugular vein and the facial vein identified, ligated with silk ties and divided. The jugular vein was retracted laterally exposing the carotid vessels. Sharp dissection used to dissect free the proximal common carotid artery with care taken to identify protect the adjacent vagus nerve. Writing was replaced a vessel loop around the proximal common carotid artery and attention was turned to the internal carotid artery distally. Sharp dissection was used to dissect free the internal carotid artery beyond the area of palpable and visible plaque. A writing was used to place a vessel loop around the distal internal carotid artery with care taken to identify and protect the hypoglossal nerve. The patient was then heparinized allowed to circulate for 3 minutes with subsequent heparin dosing based on ACT results. While this was circulating sharp section was used to dissect free of the external carotid artery and a right angle used to place a vessel loop. The vessel then occluded first the internal followed by the common external. A longitudinal arteriotomy was created with 11 blade and extended with Guillen scissors from the common carotid artery onto the internal carotid artery beyond the plaque. A 10 [place] shunt was then placed first distally in the internal carotid artery allowed to backbleed for placing proximally in the common carotid artery. The shunt was interrogated and found to be in the low resistance signal. We then performed our endarterectomy with a freer elevator with satisfactory endpoint distally onto the internal carotid artery and eversion endarterectomy of the external carotid artery. The distal endpoint was tacked with 7-0 Prolene interrupted suture and a bovine pericardial patch secured in position using a 6-0 Prolene in a running fashion. Prior to completing the suture line the shunt was removed and the vessels backbled. After completing the suture line the internal carotid artery was released along the backbleed and the bifurcation then reoccluded at its origin. Clamps were then removed from the external and the common carotid artery allowing 10 heartbeats of antegrade flow to flush into the external carotid artery before reestablishing flow into the internal carotid artery. After releasing the clamp satisfactory stasis was noted the suture line and the vessels were interrogated with Doppler. The internal carotid artery was patent with low resistance signal and the external carotid artery was patent with appropriate signal. Bleeding was noted from posterior medial to the common carotid artery at the the most proximal extent of the pericardial patch. Upon further inspection it appears if there had been a hole in the back wall of the carotid at this location likely from our 11 blade puncture. This was repaired with a 6-0 Prolene pursestring with satisfactory my stasis observed. Heparin was then reversed with protamine the incision of expected for hemostasis. A 19 [place] ABIODUN was placed via separate stab incision and incision closed with 2-0 Vicryl, 3-0 Vicryl, 4-0 Monocryl and Dermabond for the skin. The patient was then awakened from anesthesia moving all extremities command with cranial nerves intact. She was taken to the recovery room with this admission to the intensive care unit for hemodynamic and neurologic monitoring. Surgical Findings: see above Complications Complications: No
--- NOTE | 2025-05-29 16:15 | PCM.POST.ANE ---
Anesthesia: Postop Eval I Current Vital Signs Temperature: 96.8 F Pulse Rate: 66 Blood Pressure: 111/45 Respiratory Rate: 16 Pulse Ox: 94 Oxygen Delivery Method: Room Air Assessment Airway patent: Yes Spontaneous unlabored respirations: Yes Mental status: Awake and Calm nausea: No Vomiting: No Anesthesia Complication: No Fluid Hydration Crystalloid volume administer (ml): 1,300 Total IV fluid infused: 1,300 Progress Note Anesthesia document: Postop Eval 1 completed: Yes
[2025-05-29] MEDS: Albuterol 2.5 MG/3 ML VIAL.NEB. INHALATION (19:07)
--- NOTE | 2025-05-29 20:35 | POSTOPAN2_ITS ---
Anesthesia Postop Eval I Sum Postop Eval Completion status Anesthesia document: Postop Eval 1 completed: Yes Anesthesia Postop Eval I Summary Anesthesia Postop Eval I Summary: Anesthesia Postop Eval I: Assessment Summary Airway patent Yes 05/29/25 16:19 MANAGER U[employer] CARE.SHOF Spontaneous unlabored Yes 05/29/25 16:19 MANAGER [employer].SHOF respirations Mental status Awake,Calm 05/29/25 16:19 MANAGER U[employer].SHOF nausea No 05/29/25 16:19 MANAGER [employer].SHOF Vomiting No 05/29/25 16:19 MANAGER URG[employer].SHOF Anesthesia Postop Eval I: Fluid Summary Crystalloid volume administer 1,300 05/29/25 16:19 MANAGER [employer].SHOF (ml) Colloids volume administered ( ml) Blood Product volume administered (ml) Total IV fluid infused 1,300 05/29/25 16:19 MANAGER [employer].SHOF Anesthesia Postop Eval I: Summary Notes Anesthesia Complication No 05/29/25 16:20 MANAGER [employer].SHOF Anesthesia Complication Comment: Post-operative progress note Anesthesia: Postop Eval II Evaluation Mental status: Awake and Calm Pain Level: 1 nausea: No Vomiting: No Complications Anesthesia Complication: No
--- NOTE | 2025-05-29 20:35 | PCM.POSTANE2 ---
Anesthesia Postop Eval I Sum Postop Eval Completion status Anesthesia document: Postop Eval 1 completed: Yes Anesthesia Postop Eval I Summary Anesthesia Postop Eval I Summary: Anesthesia Postop Eval I: Assessment Summary Airway patent Yes 05/29/25 16:19 BOW MAKER MACHINE TENDER.SHOF Spontaneous unlabored Yes 05/29/25 16:19 BOW MAKER MACHINE TENDER.SHOF respirations Mental status Awake,Calm 05/29/25 16:19 BOW MAKER MACHINE TENDER.SHOF nausea No 05/29/25 16:19 BOW MAKER MACHINE TENDER.SHOF Vomiting No 05/29/25 16:19 BOW MAKER MACHINE TENDER.SHOF Anesthesia Postop Eval I: Fluid Summary Crystalloid volume administer 1,300 05/29/25 16:19 BOW MAKER MACHINE TENDER.SHOF (ml) Colloids volume administered ( ml) Blood Product volume administered (ml) Total IV fluid infused 1,300 05/29/25 16:19 BOW MAKER MACHINE TENDER.SHOF Anesthesia Postop Eval I: Summary Notes Anesthesia Complication No 05/29/25 16:20 BOW MAKER MACHINE TENDER.SHOF Anesthesia Complication Comment: Post-operative progress note Anesthesia: Postop Eval II Evaluation Mental status: Awake and Calm Pain Level: 1 nausea: No Vomiting: No Complications Anesthesia Complication: No
[2025-05-29] MEDS: Cefazolin 1 GM/50 ML BAG IV (21:44)
[2025-05-30] VITALS (13 sets, daily range): BP systolic 105–122; BP diastolic 45–53; PULSE 42–60; RESP 12–21; TEMP 36.4–37.1; O2SAT 95–100; BMI 31.6
[2025-05-30] MEDS: Cefazolin 1 GM/50 ML BAG IV (05:29)
[2025-05-30 05:43] LABS: Hematocrit 34.5 % (37-47); Hemoglobin 11.4 g/dL (12.0-15.0); Mean Corp Hgb Conc 33.0 g/dL (32-36); Mean Corpuscular Volume 92.5 fL (81-99); Mean Platelet Vol. 10.6 fl (6.2-12.0); NRBC Flagged by Analyzer 0 % (0-5); POSITIVE DIFFERENTIAL YES; POSITIVE MORPHOLOGY YES; Platelet Count 308 K/mm3 (150-450); RBC Distribution Width CV 15.6 % (11.6-14.6); RBC Distribution Width SD 52.9 fl (35.1-43.9); Red Blood Count 3.73 M/mm3 (4.2-5.4); White Blood Count 10.5 K/mm3 (4.4-11.0)
[2025-05-30 05:49] LABS: Differential Indicated SCAN CRITERIA MET
[2025-05-30 06:20] LABS: Scan Smear per Review Criteria MANUAL DIFF
[2025-05-30 06:26] LABS: Neutrophil-Segmented 80 % (47-70); Total Cells Counted 100 (MANUAL DIFF)
[2025-05-30 06:29] LABS: Red Cell Morphology NORM C+C NORMAL (NORM C&C)
[2025-05-30] MEDS: Budesonide Respules 0.5 MG/2 ML AMPUL.NEB. INHALATION (07:03)
[2025-05-30] MEDS: Albuterol 2.5 MG/3 ML VIAL.NEB. INHALATION (07:03)
[2025-05-30] MEDS: Potassium Chloride Oral Tablet 20 MEQ PO (08:39)
[2025-05-30] MEDS: Aspirin E.C. 81 MG Tablet PO (08:39)
--- NOTE | 2025-05-30 09:10 | PCM.PN.SRG ---
Subjective Subjective I saw Mrs. Mario resting comfortably in bed this morning. She relates mild discomfort at the incision site, but otherwise feeling okay. She reports she had a mild headache yesterday but this resolved. She denies any numbness/weakness, vision changes, lightheadedness, or other concerns. She has only been out of bed to the bedside commode so far. She has tolerated a normal diet so far. She does want Miralax as she struggled with constipation after last surgery and wants to be more proactive this time. Objective Data Objective Data Vital Signs: Vital Signs Temp Pulse Resp BP Pulse Ox O2 Del Method O2 Flow Rate 97.6 F L 60 16 107/47 L 96 Room Air 2 05/30/25 04:00 05/30/25 08:00 05/30/25 08:00 05/30/25 08:00 05/30/25 08:00 05/30/25 08:00 05/30/25 07:05 Oxygen Flow Rate (L/min) 2 Oxygen Delivery Method Room Air Weight: 178 lb 5.663 oz Body Mass Index (BMI) 31.6 Intake & Output: Intake and Output for Last 24 Hours 05/28/25 05/29/25 05/30/25 23:59 23:59 23:59 Intake Total 1175 / 1425 420 / 420 Output Total 270 / 1120 850 / 850 Balance 905 / 305 -430 / -430 Lab / Micro Data 05/30/25 05:30 Labs: Laboratory Results - last 24 hr 05/29/25 12:21: Activated Clotting Time 124 05/29/25 14:19: Activated Clotting Time 239 H 05/29/25 15:00: Activated Clotting Time 233 H 05/30/25 05:30: WBC 10.5, RBC 3.73 L, Hgb 11.4 L, Hct 34.5 L, MCV 92.5, MCH 30.6, MCHC 33.0, RDW Std Deviation 52.9 H, RDW Coeff of Jennifer 15.6 H, Plt Count 308, MPV 10.6, Immature Gran % (Auto) FIRE PROTECTION INSPECTOR, Neut % (Auto) FIRE PROTECTION INSPECTOR, Lymph % (Auto) FIRE PROTECTION INSPECTOR, [place] % (Auto) FIRE PROTECTION INSPECTOR, Eos % (Auto) FIRE PROTECTION INSPECTOR, Baso % (Auto) FIRE PROTECTION INSPECTOR, Absolute Neuts (auto) 8.4 H, Absolute Lymphs (auto) 1.26, Total Counted 100, Neutrophils % (Manual) 80 H, Lymphocytes % (Manual) 12 L, Monocytes % (Manual) 7, Basophils % (Manual) 1, Nucleated RBC % 0, Platelet Estimate ADEQUATE, Plt Morphology Comment LARGE, RBC Morphology NORM C+C Physical Exam Const alert, oriented x3 and no apparent distress General Appearance: cooperative and comfortable HEENT normocephalic, head/scalp atraumatic, hearing grossly normal bilaterally and external nose normal Eyes EOMs intact bilaterally General Eye: normal appearance of both eyes Neck Neck Narrative: R neck incision site with skin glue intact, ABIODUN drain intact with serosanguineous drainage, mild swelling without ecchymosis, soft to palpation throughout. Resp normal respiratory effort, normal air movement, no retractions and no use of accessory muscles Effort and Inspection: able to speak in complete sentences Cardio regular rate and regular rhythm Extremity no clubbing, cyanosis or edema Skin no rashes or lesions noted Neuro oriented x3, CN's II-XII intact bilaterally, moves all extremities and no focal motor deficits Speech: speech normal Psych mental status grossly normal Appearance: grossly normal Attitude: calm and engaged Activity / Motor Behavior: appropriate eye contact Speech: normal speech Mood & Affect: euthymic mood Assessment & Plan Assessment/Plan (1) Stenosis of right carotid artery without cerebral infarction: PLAN: Plan She is POD#1 from R CEA. I removed the ABIODUN drain this morning without issue and she tolerated this well. The incision site is satisfactory in appearance without evidence of hematoma. Her BPs remain on the lower side, will continue to hold her metoprolol, amlodipine, and lasix for now. Will continue clonidine. She has been asymptomatic and has not required any pressor support. Will plan for her to ambulate with nursing/PT and as long as she tolerates this without lightheadedness or other symptoms then plan to discharge home later today. Charges/Coding Procedures Integumentary [id number]: [id number] Global Visit
--- NOTE | 2025-05-30 09:28 | DS.PCM_ITS ---
Providers Date of Admission: 05/29/25 Primary Care Physician: Amanda Bahena PA-C Reason For Visit: Right Carotid Endarterectomy Diagnosis Discharge Diagnosis (1) Stenosis of right carotid artery without cerebral infarction: Status: Acute Code(s): I65.21 - Occlusion and stenosis of right carotid artery Plan She is POD#1 from R CEA. I removed the ABIODUN drain this morning without issue and she tolerated this well. The incision site is satisfactory in appearance without evidence of hematoma. Her BPs remain on the lower side, will continue to hold her metoprolol, amlodipine, and lasix for now. Will continue clonidine. She has been asymptomatic and has not required any pressor support. Will plan for her to ambulate with nursing/PT and as long as she tolerates this without lightheadedness or other symptoms then plan to discharge home later today. Medications at Discharge Home Medications albuterol sulfate 90 mcg/actuation aerosol inhaler (Ventolin HFA) 2 puff inhalation Q4H PRN shortness of breath or wheezing #8.5 grams 08/24/23 levothyroxine 150 mcg tablet (Synthroid) 150 mcg PO QDAY THYROID 02/14/24 fluticasone propionate 230 mcg-salmeterol 21 mcg/actuation HFA inhaler (Advair HFA) 2 inh inhalation BID ASTHMA #1 ea 02/13/25 aspirin 81 mg tablet,delayed release (Adult Aspirin Regimen) 81 mg PO DAILY SUPPLEMENT #360 tabs 03/01/25 montelukast 10 mg tablet 10 mg PO QPM ASTHMA 04/09/25 clonidine HCl 0.1 mg tablet 0.1 mg PO BID bp #60 tabs 04/13/25 furosemide 40 mg tablet 40 mg PO BIDLX water pill #60 tabs 04/13/25 Held on 05/30/25. Instructions: Resume on 06/04/25. hydralazine 50 mg tablet 100 mg (2 x 50 mg) PO TID bp #180 tabs 04/13/25 Held on 05/30/25. Instructions: Resume on 06/03/25. metoprolol succinate 50 mg tablet,extended release 24 hr 150 mg (3 x 50 mg) PO BID bp #180 tabs 04/13/25 Held on 05/30/25. Instructions: Resume on 06/01/25. potassium chloride 10 mEq tablet,extended release (Klor-Con) 20 meq (2 x 10 mEq) PO DAILY supplement #60 tabs 04/13/25 amlodipine 5 mg tablet 5 mg PO DAILY htn 05/29/25 Held on 05/30/25. Instructions: Resume on 06/06/25. loratadine 10 mg tablet (Claritin) 10 mg PO DAILY PRN allergic symptoms 05/29/25 acetaminophen 500 mg tablet 1,000 mg (2 x 500 mg) PO Q8 #0 tabs 05/30/25 oxycodone 5 mg tablet 5 mg PO Q8H PRN PRN Pain Score 4-10 3 days #9 tabs 05/30/25 Hospital Course Summary of Care Provided Hospital Course: Yun Mario is a 75 y/o female who underwent R CEA 05/29/[address] Sumner. The procedure was without complications and she tolerated it well. Postoperatively, she was routinely admitted to the ICU for ongoing hemodynamic and neurologic monitoring. She has had low blood pressures (100-110s systolic) postoperatively but has not required pressor support; her home metoprolol, amlodipine, and lasix were held and clonidine was continued. She has been asymptomatic with these lower pressures. She has remained neurologically intact throughout her admission. She has tolerated a normal diet, been voiding without issue, and ambulated to her baseline. She is discharged home today with scheduled outpatient follow-up. She is instructed to continue to monitor her BPs at home and to gradually restart her usual home BP medications. Physical Exam Const alert, oriented x3 and no apparent distress General Appearance: cooperative and comfortable HEENT normocephalic, head/scalp atraumatic, hearing grossly normal bilaterally and external nose normal Eyes EOMs intact bilaterally General Eye: normal appearance of both eyes Neck Neck Narrative: R neck incision site with skin glue intact, ABIODUN drain intact with serosanguineous drainage, mild swelling without ecchymosis, soft to palpation throughout. Resp normal respiratory effort, normal air movement, no retractions and no use of accessory muscles Effort and Inspection: able to speak in complete sentences Cardio regular rate and regular rhythm Extremity no clubbing, cyanosis or edema Skin no rashes or lesions noted Neuro oriented x3, CN's II-XII intact bilaterally, moves all extremities and no focal motor deficits Speech: speech normal Psych mental status grossly normal Appearance: grossly normal Attitude: calm and engaged Activity / Motor Behavior: appropriate eye contact Speech: normal speech Mood & Affect: euthymic mood Weight / BMI Weight Weight: 178 lb 5.663 oz Body Mass Index (BMI) 31.6 ABG / Lab / Microbiology Data 05/30/25 05:30 Laboratory: Laboratory Results - last 24 hr 05/29/25 12:21: Activated Clotting Time 124 05/29/25 14:19: Activated Clotting Time 239 H 05/29/25 15:00: Activated Clotting Time 233 H 05/30/25 05:30: WBC 10.5, RBC 3.73 L, Hgb 11.4 L, Hct 34.5 L, MCV 92.5, MCH 30.6, MCHC 33.0, RDW Std Deviation 52.9 H, RDW Coeff of Jennifer 15.6 H, Plt Count 308, MPV 10.6, Immature Gran % (Auto) UNHAIRING MACHINE OPERATOR, Neut % (Auto) UNHAIRING MACHINE OPERATOR, Lymph % (Auto) UNHAIRING MACHINE OPERATOR, [place] % (Auto) UNHAIRING MACHINE OPERATOR, Eos % (Auto) UNHAIRING MACHINE OPERATOR, Baso % (Auto) UNHAIRING MACHINE OPERATOR, Absolute Neuts (auto) 8.4 H , Absolute Lymphs (auto) 1.26, Total Counted 100, Neutrophils % (Manual) 80 H, L ymphocytes % (Manual) 12 L, Monocytes % (Manual) 7, Basophils % (Manual) 1, Nucleated RBC % 0, Platelet Estimate ADEQUATE, Plt Morphology Comment LARGE, RBC Morphology NORM C+C D/C Instructions Weight Bearing Status: Weight bearing as tolerated Lifting Restricted to (Lbs): 20 Lifting Restrictions: Do not lift greater than 20 pounds for 3 weeks Call your doctor if your incision/area has: Sudden Increased Bleeding, Increased Pain/ Swelling and Foul Smelling Discharge Call your doctor if you observe: Fever of 101 or Higher and Uncontrolled pain Remove Dressing in: 1 day DC O2, CPAP, BIPAP Needs Home O2 Discharge instructions: No Additional Instructions: INCISION CARE: You have a small bandage on your neck over the site from which the surgical drain was removed. You may remove this bandage tomorrow. As long as there is no residual drainage, you may leave this open to air. If you do notice some continued drainage, you may re-cover with a Band-Aid. Your neck incision site is covered with skin glue which will continue to protect it. The skin glue will peel/flake off on its own over the next few weeks. Please do not pick at it. You may shower tomorrow. It is okay for soap and water to rinse over the incision site, pat to dry. Do not submerge the incision site in water such as to take a bath or go swimming etc. for 3 weeks. MEDICATION INSTRUCTIONS Hold your metoprolol 150mg tablet twice daily, furosemide 40mg tablet twice daily, and amlodipine 5mg daily for now. Continue to take your Clonidine 0.1mg twice daily. Your blood pressures have been a bit lower than usual following surgery. Please check your blood pressure every morning and every evening or any time you feel dizzy/lightheaded or have other symptoms. When your systolic blood pressure (top number) is 140 mmHg then restart your metoprolol 150mg tablet twice daily. Then continue to check your blood pressure daily and if it is again >140 on the top, restart your furosemide 40mg twice daily. Then continue to check your blood pressure daily and if it is again >140 on the top, restart your amlodipine 5mg daily. You have been prescribed oxycodone 5mg tablet to be taken by mouth every 8 hours as needed for pain. You may take this in addition to Tylenol as needed. You should not drive or operate machinery while taking this medication. Do not take this medication in combination with any other prescription pain medications. Call the office at [phone] with any questions about your medications ACTIVITY INSTRUCTIONS Do not lift greater than 20 pounds for 3 weeks. Otherwise, please continue with activity as tolerated. Do not drive until you can turn your head well enough to safely check your blind spots. FOLLOW-UP INSTRUCTIONS You are scheduled for follow-up in the office on 06/13/25. If you need to change this appointment or have any other questions/concerns, please call the office at [phone]. Please Follow Up With: Zeinab Carrillo PA When: 06/13/25 Meaningful Use Info Meaningful Use Meaningful Use Diagnoses (Choose all that apply): None applicable Discharge Plan Admission Admit Date/Time: 05/29/25 09:19 Attending Provider: Papo Sumner Primary Care Provider: Amanda Bahena Instructions Additional Instructions / Restrictions: INCISION CARE: You have a small bandage on your neck over the site from which the surgical drain was removed. You may remove this bandage tomorrow. As long as there is no residual drainage, you may leave this open to air. If you do notice some continued drainage, you may re-cover with a Band-Aid. Your neck incision site is covered with skin glue which will continue to protect it. The skin glue will peel/flake off on its own over the next few weeks. Please do not pick at it. You may shower tomorrow. It is okay for soap and water to rinse over the incision site, pat to dry. Do not submerge the incision site in water such as to take a bath or go swimming etc. for 3 weeks. MEDICATION INSTRUCTIONS Hold your metoprolol 150mg tablet twice daily, hydralazine 100mg TID, furosemide 40mg tablet twice daily, and amlodipine 5mg daily for now. Continue to take your Clonidine 0.1mg twice daily. Your blood pressures have been a bit lower than usual following surgery. Please check your blood pressure every morning and every evening or any time you feel dizzy/lightheaded or have other symptoms. W hen your systolic blood pressure (top number) is 140 mmHg then restart your metoprolol 150mg tablet twice daily. Then continue to check your blood pressure daily and if it is again >140 on the top, restart your hydralazine 100mg TID. Then continue to check your blood pressure daily and if it is again >140 on the top, restart your furosemide 40mg twice daily. Then continue to check your blood pressure daily and if it is again >140 on the top, restart your amlodipine 5mg daily. You have been prescribed oxycodone 5mg tablet to be taken by mouth every 8 hours as needed for pain. You may take this in addition to Tylenol as needed. You should not drive or operate machinery while taking this medication. Do not take this medication in combination with any other prescription pain medications. Call the office at [phone] with any questions about your medications ACTIVITY INSTRUCTIONS Do not lift greater than 20 pounds for 3 weeks. Otherwise, please continue with activity as tolerated. Do not drive until you can turn your head well enough to safely check your blind spots. FOLLOW-UP INSTRUCTIONS You are scheduled for follow-up in the office on 06/13/25. If you need to change this appointment or have any other questions/concerns, please call the office at [phone]. Discharge Orders/Prescriptions Prescriptions: New acetaminophen 500 mg Tablet 1,000 mg PO Q8 Qty: 0 0RF oxycodone 5 mg Tablet 5 mg PO Q8H PRN PRN (Reason: Pain Score 4-10) 3 Days Qty: 9 0RF Continued albuterol sulfate [Ventolin HFA] 90 mcg/actuation HFA aerosol inhaler 2 puff inhalation Q4H PRN (Reason: shortness of breath or wheezing) Qty: 8.5 6RF levothyroxine [Synthroid] 150 mcg tablet 150 mcg PO QDAY fluticasone propion-salmeterol [Advair HFA] 230-21 mcg/actuation HFA aerosol inhaler 2 inh inhalation BID Qty: 1 11RF Patient Comments: WILL START TAKING AFTER DONE WITH SYMBICORT. HAD TO SWITCH INHALERS D/T INSURANCE aspirin [Adult Aspirin Regimen] 81 mg tablet,delayed release (DR/EC) 81 mg PO DAILY Qty: 360 0RF loratadine [Claritin] 10 mg tablet 10 mg PO DAILY PRN (Reason: allergic symptoms) montelukast 10 mg tablet 10 mg PO QPM clonidine HCl 0.1 mg Tablet 0.1 mg PO BID Qty: 60 0RF potassium chloride [Klor-Con 10] 10 mEq tablet extended release 20 meq PO DAILY Qty: 60 0RF Held amlodipine 5 mg tablet 5 mg PO DAILY Hold Instructions: Resume on 06/06/25. furosemide 40 mg Tablet 40 mg PO BIDLX Qty: 60 0RF Hold Instructions: Resume on 06/04/25. metoprolol succinate 50 mg Tablet Extended Release 24 Hr 150 mg PO BID Qty: 180 0RF Hold Instructions: Resume on 06/01/25. hydralazine 50 mg Tablet 100 mg PO TID Qty: 180 0RF Hold Instructions: Resume on 06/03/25. Referrals / Follow Up: Amanda Bahena PA-C [Primary Care Provider] - Disposition Disposition (needs filled in before D/C Order can be placed): Home, Self Care Charges/Coding Procedures Integumentary 111xxx-113xx: [id number] Global Visit
--- NOTE | 2025-05-30 10:28 | CASEMGMT ---
NAS SANTANA Assessment Face to Face with patient for initial transition planning/care coordination assessment. RN MAX introduced self and role at [facility], pt voices understanding. Pt is A&Ox4 and is resting comfortably in bed and is calm. Pt's at bedside. Care providers, pharmacy, and demographics verified. Admitting dx: Right Carotid Endarterectomy LACE Strata: 2 PCP: Amanda Bahena Specialists: Stevo Sifuentes (Pulmonary), Taisha (Vascular) Preferred Pharmacy: [facility] Insurance: [facility] A/B/G Prescription Benefit: Yes - Through [employer] LNOK: Bonifacio (H), Maite (DIL) Living Arrangements: Pt lives with her in a ranch style home with 3 steps to enter ADLs/IADLs: Pt reports that she is entirely independent and denies any concerns. Transportation: Self, DME: BP Machine, pulse ox HHC/SNF: Denies Pt?s goal: Home Plan: home today with pt's and to follow up with the vascular team as scheduled for 06/13. Pt states that she feels safe returning home today and denies any further DC needs or concerns. Pt RN at bedside about to review DC instructions with the pt. Khushboo Castelan RN, CM
--- NOTE | 2025-05-30 11:21 | CHAPLAIN ---
Type of Pastoral Visit _x__ Initial Visit ___ Follow-up Visit ___ On-call Visit ___ General Patient Visit ___ Spiritual Assessment ___ Family Conference ___ Bereavement ___ Rapid Response ___ Code Blue ___ Other (describe below) Pastoral Care Referral From _x__ Patient ___ Family ___ Nurse ___ Physician ___ Maintenance Electrician ___ Cement Side Laster ___ Other (describe below) Sacrament/Intervention _x__ Active listening ___ Anointing ___ Roman Catholic ___ Bereavement ___ Communion ___ Rosana exploration ___ ___ Life review ___ Prayer ___ Reconciliation ___ Sacrament of Sick ___ Supportive presence ___ Wedding ___ Other (describe below) Pastoral Comments patient is being discharged at this time; spouse is with her; brief visit to offer support and see if there are last minute needs; pt talks about her experience and is more positive about the outcome than in the past; no further needs identified
== END 2025-05-30 11:02 | disposition home or self-care (01) | DRG 39 ==
PROVIDERS: Admitting Provider Surgery Trauma Surgery; PCP Family Medicine; Referring Provider Surgery Trauma Surgery; Visit Provider Surgery Trauma Surgery
PROC: 03CM0ZZ Extirpation of Matter from Right External Carotid Artery, Open Approach (ICD-10-PCS; CPT 35301; principal; 2025-05-29 11:10)
DX: I65.21 Occlusion and stenosis of right carotid artery (principal); I10 Essential (primary) hypertension; J44.9 Chronic obstructive pulmonary disease, unspecified; Z82.49 Family history of ischemic heart disease and other diseases of the circulatory system; Z87.891 Personal history of nicotine dependence; Z79.899 Other long term (current) drug therapy; Z79.51 Long term (current) use of inhaled steroids; Z79.82 Long term (current) use of aspirin; R03.1 Nonspecific low blood-pressure reading
CPT/HCPCS: 85025; 85347; 88304; 88311; 94640; 94668; 94762; 99252; A4648; G0463; J2405